=== PATIENT | female | born 1955 | race Caucasian/White ===

== ENCOUNTER 2021-05-23 08:50 | Day surgery (SDC) | payer MEDICARE, OTHER ==
[2021-05-20 11:20] LABS: Absolute Lymphocytes (CBC) 2.1 K/uL (0.7-4.9); Lymphocytes % 36.7 % (15.3-44.8); RBC Red Blood Cell Count 4.45 M/uL (3.86-4.86)
--- NOTE | 2021-05-20 11:25 | RAD REPORT ---
EXAM DESCRIPTION: RAD - Chest Pa And Lat (2 Views) - 05/20/2021 11:15 am CLINICAL HISTORY: PRE OP FOR CARPEL TUNNEL SURGERY Chest pain. COMPARISON: No comparisons FINDINGS: The lungs are mildly emphysematous but clear. The heart is upper limit of normal in size. No displaced fractures. Small hiatal hernia. IMPRESSION: Mild diffuse COPD.
[2021-05-20 11:26] LABS: Protime INR 0.9
[2021-05-20 11:35] LABS: Potassium 4.7 mmol/L (3.5-5.1)
--- NOTE | 2021-05-20 16:10 | EKG ---
Test Date: 2021-05-20 Test Time: 10:58:54 Heading Repairer: ADI MEASUREMENT RESULTS: Intervals: Rate: 54 W[place]: 170 QRSD: 114 QT: 432 QTc: 409 [place]: P: 53 W[place]: 170 QRS: 49 T: 47 INTERPRETIVE STATEMENTS: Sinus bradycardia Otherwise normal ECG No previous ECG available for comparison Electronically Signed On 05-20-21 16:10:35 SUCTION ROLLER by Villa Payton
[2021-05-23] MEDS ORDERED: NA CHLORIDE 0.9% 50 ML ONE (08:55)
[2021-05-23] MEDS ORDERED: Ringers Lactate 1,000 ML IV ONE (08:55)
[2021-05-23] MEDS ORDERED: CEFAZOLIN SODIUM 1 GM/VIAL ONE (08:55)
[2021-05-23 09:22] VITALS: O2SAT 97
[2021-05-23] MEDS ORDERED: MIDAZOLAM HCL 2 MG/2 ML INJ ONE (09:25)
[2021-05-23] MEDS ORDERED: ONDANSETRON 4 MG/2 ML VIAL ONE (09:25)
[2021-05-23] MEDS ORDERED: propofoL 200 MG/20 ML VIAL IV ONE ×2 (09:25→10:52)
[2021-05-23] MEDS ORDERED: FENTANYL CITR 100 MCG/2 ML ONE (09:25)
[2021-05-23] MEDS ORDERED: LIDOCAINE 1% MPF 30 ML VIAL ONE (09:25)
[2021-05-23] MEDS ORDERED: LIDOCAINE 2% MPF 5 ML VIAL ONE (09:25)
[2021-05-23] MEDS ORDERED: BUPIVACAINE 0.25% PF 10 ML VIAL ONE (10:14)
--- NOTE | 2021-05-23 11:15 | P.BOP ---
Preoperative diagnosis: right carpal tunnel syndrome Postoperative diagnosis: same Primary procedure: right open carpal tunnel release Front End Driver: NONE,NONE Estimated blood loss: 3 cc Specimen: none Findings: see dictation Anesthesia: General Complications: None Implants: none Fluids & blood products: per anesthesia record; TT: 25 mins @ 300 mmHg Transferred to: Recovery Room Condition: Good
[2021-05-23 14:43] VITALS: TEMP 97.3
[2021-05-23 14:46] VITALS: BP 107/61
--- NOTE | 2021-05-24 21:29 | OP ---
Date of Procedure: 05/23/2021 Surgeon: Jonatan Garcia MD Preoperative Diagnosis: Right carpal tunnel syndrome. Postoperative Diagnosis: Right carpal tunnel syndrome. Procedure Performed: Right open carpal tunnel release. Anesthesia: [place] block and general anesthesia. Complications: None. Tourniquet Time: 25 minutes at 300 mmHg. Implants: None. Indication For Procedure: Sal[place] is a 66-year-old female who was seen in my clinic with signs, sympt oms, and EMG findings consistent with the right carpal tunnel syndrome. I discussed with the patient at length risks and benefits associated with operative and nonoperative treatment. She expressed un derstanding and elected to proceed with operative treatment. Description Of Procedure: After informed consent was obtained, the patient was identified in the pre operative holding area. The right upper extremity was marked. The patient was then brought back to the operating room, transferred to the operating table in supine fashion, and placed under Elsie block anesthesia. The patient did not appear to be completely comfortable and at that time, Anesthesia el ected to convert the patient to general anesthesia. The right upper extremity was then prepped and d raped in usual sterile fashion. A time-out was initiated. The correct patient and procedure were co nfirmed and identified. The patient did receive her preoperative prophylactic antibiotics. Approxim ately 2 cm longitudinal incision was made just ulnar to the thenar crease. Dissection was then taken down to the palmar fascia, which was split and divided. Self-retaining retractors were placed. A F reer elevator was then placed just deep to the palmar fascia, protecting the median nerve at all time s and a 15 blade was then used to release the transverse carpal ligament with the Haines elevator prot ecting the nerve at all times. Any remaining fascial bands were then released using a blunt-tipped M etzenbaum with the tips aimed superficially to protect the median nerve. After full release of the t ransverse carpal ligament and fascial bands, wound was then irrigated thoroughly with normal saline. Skin was approximated using a 5-0 Prolene. Sterile dressings were applied. Tourniquet was let down . The patient was awakened and transferred to the PACU in stable condition. Postoperative Plan: The patient will begin working on range of motion exercises. She will follow up in 1 week for wound check and suture removal. CV/MODL Voice ID: [id number] Report ID: [id number]
== END 2021-05-23 12:20 | disposition home or self-care (01) ==
LOC: OR 08:50
PROVIDERS: ATTEND Orthopaedic Surgery Sports Medicine
PROC: 01N50ZZ Release Median Nerve, Open Approach (ICD-10-PCS; principal; 2021-05-23 10:15)
DX: G56.01 Carpal tunnel syndrome, right upper limb (principal); G56.02 Carpal tunnel syndrome, left upper limb; M25.542 Pain in joints of left hand; M25.541 Pain in joints of right hand; Z20.822 Contact with and (suspected) exposure to COVID-19
CPT/HCPCS: 93005; 85025; 80048; 36415; 85610; 85730; 71046; 64721; U0002; J2704 ×2; J2250; J3010; J7120; J2405; J0690

== ENCOUNTER 2022-04-14 01:03 | Emergency (ER) | payer OTHER ==
--- OUTSIDE RECORDS SUMMARY | 2022-04-14 01:09 | XMS REPORT | Continuity of Care Document ---
:1955 Author Organization [facility] t Address [address] [place] [address] Care Team Providers Name Role Phone Tiffanie SALCEDO Attending Clinician Unavailable BRADEN YAO Attending Clinician Unavailable DR STEFFANY BROWN Attending Clinician Unavailable BRADEN YAO Admitting Clinician Unavailable DR STEFFANY BROWN Admitting Clinician Unavailable Payers Payer Name Policy Type Policy Number Effective Date Expiration Date Najma sandoval [facility] 53 [id number] 2021 [facility] 00:00:00 - [facility] Problems Condition Condition Condition Status Onset Resolution Last Treating Co mments Source Name Details Category Date Date Treatment Clinician Date [id number] [place] 80214 tunnel [facility] syndrome - [facility] of right [facility] [id number] [place] Com[place] 38692 tunnel [facility] syndrome - [facility] of left [facility] [id number] Urge Problem Common incontinen Spirit ce of - [facility] urine [facility] [id number] Primary Problem Commo n osteoarthr Spirit itis of - [facility] both knees [facility] [id number] Mixed Problem Common hyperlipid Spirit emia - [facility] [id number] Restless Problem Commo n leg Spirit syndrome - [facility] Sciatica Lumbago Problem Common with Spirit sciatica, - [facility] right side [facility] [id number] Carpal Problem Commo n [id number] tunnel Spirit syndrome - [facility] on both [facility] [id number] Essential Problem Comm on hypertensi Spirit on - [facility] [id number] Simple Problem Common chronic Spirit bronchitis - [facility] [id number] 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 pain - [facility] Nail Nail Problem Active 2018-06-01 Memor ia fungus fungus 05:10:11 l Active Farrukh Problem 06/01/2018 [facility] Body mass Body mass Problem Active 2018-06-01 Memoria index index 05:10:11 l (BMI) of (BMI) of Rick n 45.0-49.9 45.0-49.9 in adult in adult Active Problem 06/01/2018 [facility] Morbid Morbid Problem Active 2018-06-01 Mem oria (severe) (severe) 05:10:11 l obesity obesity [place] due to due to excess excess calories calories Active Problem 06/01/2018 [facility] Chronic Chronic Problem Active 2018-06-01 Me moria obstructiv obstructiv 05:10:11 l e e [place] pulmonary pulmonary disease, disease, unspecifie unspecifie d COPD d COPD type type Active Problem 06/01/2018 [facility] Ingrown Ingrown Diagnosis Active 2018-06-01 Memoria thumb thumb 05:10:11 l nail, nail, Farrukh right right Active Diagnosis 06/01/2018 [facility] Allergies, Adverse Reactions, Alerts Allergy Allergy Status Severity Reaction(s) Onset Inactive Treating Comm ents Source Name Type Date Date Clinician Bactrim Bactrim Active hives 2018-0 Memoria 3-04 l 00:00: [place] 00 Social History Social Habit Start Date Stop Date Quantity Comments Source History of Tobacco Use Co mmon [facility] Sex Assigned At Com mon [facility] Smoking Status Start Date Stop Date Source Never Smoker Common [facility] Former Smoker 2021-11-21 00:00:00 2021-11-21 00:00:00 Common S pirit [facility] Medications Ordered Filled Start Stop Current Ordering Indication Dosage Frequency Signature Comments Components Source Medication Medication Date Date Medication? Clinician (SIG) Name Name Albuterol Albuterol 2021-03 No 2{puffs Albuterol Sulfate HFA Sulfate HFA 0-20 } Sulfate 108 (90 108 (90 00:00: HFA 108 Base) Base) 00 (90 Base) MCG/ACT MCG/ACT MCG/ACT Oxybutynin Oxybutynin 2- No 1{table BID Oxybutynin Chloride ER Chloride ER 07-18 t} Chloride 5 MG 5 MG 00:00: 00:00 ER 5 MG 00 :00 Oxybutynin Oxybutynin 2021- No 1{table BID Oxybutynin Chloride ER Chloride ER 07-18 t} Chloride 5 MG 5 MG 00:00: 00:00 ER 5 MG 00 :00 Oxybutynin Oxybutynin 2021- No 1{table BID Oxybutynin Chloride ER Chloride ER 07-18 t} Chloride 5 MG 5 MG 00:00: 00:00 ER 5 MG 00 :00 Acetaminoph Acetaminoph 2021-0 No 1{table Acetaminop en-Codeine en-Codeine 2-24 t_as_ne hen-Codein #3 300-30 #3 300-30 00:00: eded} e #3 MG MG 00 300-30 MG Acetaminoph Acetaminoph 2021-0 No 1{table Acetaminop en-Codeine en-Codeine 2-24 t_as_ne hen-Codein #3 300-30 #3 300-30 00:00: eded} e #3 MG MG 00 300-30 MG Acetaminoph Acetaminoph 2021-0 No 1{table Acetaminop en-Codeine en-Codeine 2-24 t_as_ne hen-Codein #3 300-30 #3 300-30 00:00: eded} e #3 MG MG 00 300-30 MG Acetaminoph Acetaminoph 2021-0 No 1{table Acetaminop en-Codeine en-Codeine 2-24 t_as_ne hen-Codein #3 300-30 #3 300-30 00:00: eded} e #3 MG MG 00 300-30 MG Acetaminoph Acetaminoph 2021-0 No 1{table Acetaminop en-Codeine en-Codeine 2-24 t_as_ne hen-Codein #3 300-30 #3 300-30 00:00: eded} e #3 MG MG 00 300-30 MG Acetaminoph Acetaminoph 2022-0 No 1{table Acetaminop en-Codeine en-Codeine 2-24 t_as_ne hen-Codein #3 300-30 #3 300-30 00:00: eded} e #3 MG MG 00 300-30 MG Acetaminoph Acetaminoph 2022-0 No 1{table Acetaminop en-Codeine en-Codeine 2-24 t_as_ne hen-Codein #3 300-30 #3 300-30 00:00: eded} e #3 MG MG 00 300-30 MG Acetaminoph Acetaminoph 2022-0 No 1{table Acetaminop en-Codeine en-Codeine 2-24 t_as_ne hen-Codein #3 300-30 #3 300-30 00:00: eded} e #3 MG MG 00 300-30 MG Acetaminoph Acetaminoph 2022-0 No 1{table Acetaminop en-Codeine en-Codeine 2-24 t_as_ne hen-Codein #3 300-30 #3 300-30 00:00: eded} e #3 MG MG 00 300-30 MG Acetaminoph Acetaminoph 2022-0 No 1{table Acetaminop en-Codeine en-Codeine 2-24 t_as_ne hen-Codein #3 300-30 #3 300-30 00:00: eded} e #3 MG MG 00 300-30 MG Acetaminoph Acetaminoph 2022-0 No 1{table Acetaminop en-Codeine en-Codeine 2-24 t_as_ne hen-Codein #3 300-30 #3 300-30 00:00: eded} e #3 MG MG 00 300-30 MG Acetaminoph Acetaminoph 2022-0 No 1{table Acetaminop en-Codeine en-Codeine 2-24 t_as_ne hen-Codein #3 300-30 #3 300-30 00:00: eded} e #3 MG MG 00 300-30 MG Kenalog Kenalog 2021-0 No 40mg Common (Triamcinol (Triamcinol 3-15 S pirit one) one) 00:00: - CHI 00 [facility] Kenalog Kenalog 2020-0 No 40mg Common (Triamcinol (Triamcinol 3-15 S pirit one) one) 00:00: - CHI 00 [facility] Kenalog Kenalog 2020-0 No 40mg Common (Triamcinol (Triamcinol 3-15 S pirit one) one) 00:00: - CHI 00 [facility] Kenredd Kenalog 0 No 40mg Common (Triamcinol (Triamcinol 3-15 S pirit one) one) 00:00: - CHI 00 [facility] Kacy Kenalog 0 No 40mg Common (Triamcinol (Triamcinol 3-15 S pirit one) one) 00:00: - CHI 00 [facility] Kacy Kenalog 2020-0 No 40mg Common (Triamcinol (Triamcinol 3-15 S pirit one) one) 00:00: - CHI 00 [facility] Kacy Kenalog 2020-0 No 40mg Common (Triamcinol (Triamcinol 3-15 S pirit one) one) 00:00: - CHI 00 [facility] Kenredd Kenalog 2020-0 No 40mg Common (Triamcinol (Triamcinol 3-15 S pirit one) one) 00:00: - CHI 00 [facility] Kenredd Kenalog 2020-0 No 40mg Common (Triamcinol (Triamcinol 3-15 S pirit one) one) 00:00: - CHI 00 [facility] Kenredd Kenalog 2020-0 No 40mg Common (Triamcinol (Triamcinol 3-15 S pirit one) one) 00:00: - CHI 00 [facility] Kenredd Kenalog 2020-0 No 40mg Common (Triamcinol (Triamcinol 3-15 S pirit one) one) 00:00: - CHI 00 [facility] Kenredd Kenalog 2020-0 No 40mg Common (Triamcinol (Triamcinol 3-15 S pirit one) one) 00:00: - CHI 00 [facility] ropinirole Yes Deanne not Calvin cuong - [place] defined l 05:10: Farrukh Irby Singulair Yes Deanne not Memor ia - [place] defined l 05:10: Farrukh Irby Escitalopra Yes Deanne not Mem oria m Oxalate 06-01 [place] defined l 05:10: Farrukh Irby Crestor Yes Deanne not Memoria - [place] defined l 05:10: Farrukh Irby Avalide Yes Deanne not Memoria 06-01 [place] defined l 05:10: Farrukh Irby Montelukast Montelukast Yes Na Salcedo 1 tablet Common Sodium Sodium [facility] Hydrochloro Hydrochloro Yes Na Salcedo 1 capsule Common thiazide thiazide in the [facility] t morning [facility] Indomethaci Indomethaci Yes Na Salcedo 1 capsule Common n n with food Spirit or milk [facility] Symbicort Symbicort Yes Na Salcedo 2 puffs Common [facility] Irbesartan- Irbesartan- Yes Na Salcedo 1 tablet Common Hydrochloro [facility]o [facility] th[facility] thiazide [facility] Magnesium Magnesium Yes Na Salcedo as Co mmon Glycinate Glycinate directed [facility] Rosuvastati Rosuvastati Yes Na Salcedo 1 tablet Common n Calcium n Calcium [facility] Ropinirole Ropinirole Yes Na Salcedo 1 tablet Common HCl HCl [facility] Escitalopra Escitalopra Yes Na Salcedo 1 tablet Common m Oxalate m Oxalate Spiri t [facility] Irbesartan- Irbesartan- No 1{table QD Irbesartan hydroCHLORO hydroCHLORO t} -hydroCHLO thiazide thiazide ROthiazide 150-12.5 MG 150-12.5 MG 150-12.5 MG Escitalopra Escitalopra No Escitalopr m Oxalate m Oxalate am Oxalate 10 MG 10 MG 10 MG Magnesium Magnesium No Magnesium Glycinate Glycinate Glycinate 665 MG 665 MG 665 MG Indomethaci Indomethaci No Indomethac n 25 MG n 25 MG in 25 MG Montelukast Montelukast No 1{table QD Montelukas Sodium 10 Sodium 10 t} t Sodium MG MG 10 MG Rosuvastati Rosuvastati No 1{table QD Rosuvastat n Calcium 5 n Calcium 5 t} in Calcium MG MG 5 MG rOPINIRole rOPINIRole No 1{table TID rOPINIRole HCl 2 MG HCl 2 MG t} HCl 2 MG Irbesartan- Irbesartan- No Irbesartan hydroCHLORO hydroCHLORO -hydroCHLO thiazide thiazide ROthiazide 150-12.5 MG 150-12.5 MG 150-12.5 MG Indomethaci Indomethaci No 1{capsu BID Indomethac n 25 MG n 25 MG le_with in 25 MG _food_o r_milk} hydroCHLORO hydroCHLORO No 1{capsu QD hydroCHLOR thiazide thiazide le_in_t Othiazide 12.5 MG 12.5 MG he_morn 12.5 MG ing} Mobic Mobic No Mobic hydroCHLORO hydroCHLORO No 1{capsu QD hydroCHLOR thiazide thiazide le_in_t Othiazide 12.5 MG 12.5 MG he_morn 12.5 MG ing} Symbicort Symbicort No 2{puffs BID Symbicort 160-4.5 160-4.5 } 160-4.5 MCG/ACT MCG/ACT MCG/ACT Irbesartan- Irbesartan- No 1{table QD Irbesartan hydroCHLORO hydroCHLORO t} -hydroCHLO thiazide thiazide ROthiazide 150-12.5 MG 150-12.5 MG 150-12.5 MG Escitalopra Escitalopra No Escitalopr m Oxalate m Oxalate am Oxalate 10 MG 10 MG 10 MG Magnesium Magnesium No Magnesium Glycinate Glycinate Glycinate 665 MG 665 MG 665 MG Indomethaci Indomethaci No Indomethac n 25 MG n 25 MG in 25 MG Montelukast Montelukast No 1{table QD Montelukas Sodium 10 Sodium 10 t} t Sodium MG MG 10 MG Rosuvastati Rosuvastati No 1{table QD Rosuvastat n Calcium 5 n Calcium 5 t} in Calcium MG MG 5 MG rOPINIRole rOPINIRole No 1{table TID rOPINIRole HCl 2 MG HCl 2 MG t} HCl 2 MG Irbesartan- Irbesartan- No Irbesartan hydroCHLORO hydroCHLORO -hydroCHLO thiazide thiazide ROthiazide 150-12.5 MG 150-12.5 MG 150-12.5 MG Indomethaci Indomethaci No 1{capsu BID Indomethac n 25 MG n 25 MG le_with in 25 MG _food_o r_milk} hydroCHLORO hydroCHLORO No 1{capsu QD hydroCHLOR thiazide thiazide le_in_t Othiazide 12.5 MG 12.5 MG he_morn 12.5 MG ing} Mobic Mobic No Mobic hydroCHLORO hydroCHLORO No 1{capsu QD hydroCHLOR thiazide thiazide le_in_t Othiazide 12.5 MG 12.5 MG he_morn 12.5 MG ing} Symbicort Symbicort No 2{puffs BID Symbicort 160-4.5 160-4.5 } 160-4.5 MCG/ACT MCG/ACT MCG/ACT Irbesartan- Irbesartan- No 1{table QD hydroCHLORO hydroCHLORO t} thiazide thiazide 150-12.5 MG 150-12.5 MG Escitalopra Escitalopra No m Oxalate m Oxalate 10 MG 10 MG Magnesium Magnesium No Glycinate Glycinate 665 MG 665 MG Indomethaci Indomethaci No n 25 MG n 25 MG Montelukast Montelukast No 1{table QD Sodium 10 Sodium 10 t} MG MG Mobic Mobic No Rosuvastati Rosuvastati No 1{table QD n Calcium 5 n Calcium 5 t} MG MG Irbesartan- Irbesartan- No hydroCHLORO hydroCHLORO thiazide thiazide 150-12.5 MG 150-12.5 MG rOPINIRole rOPINIRole No HCl 2 MG HCl 2 MG hydroCHLORO hydroCHLORO No 1{capsu QD thiazide thiazide le_in_t 12.5 MG 12.5 MG he_morn ing} Indomethaci Indomethaci No 1{capsu BID n 25 MG n 25 MG le_with _food_o r_milk} hydroCHLORO hydroCHLORO No 1{capsu QD thiazide thiazide le_in_t 12.5 MG 12.5 MG he_morn ing} Symbicort Symbicort No 2{puffs BID 160-4.5 160-4.5 } MCG/ACT MCG/ACT Irbesartan- Irbesartan- No 1{table QD Irbesartan hydroCHLORO hydroCHLORO t} -hydroCHLO thiazide thiazide ROthiazide 150-12.5 MG 150-12.5 MG 150-12.5 MG Escitalopra Escitalopra No Escitalopr m Oxalate m Oxalate am Oxalate 10 MG 10 MG 10 MG Magnesium Magnesium No Magnesium Glycinate Glycinate Glycinate 665 MG 665 MG 665 MG Indomethaci Indomethaci No Indomethac n 25 MG n 25 MG in 25 MG Montelukast Montelukast No 1{table QD Montelukas Sodium 10 Sodium 10 t} t Sodium MG MG 10 MG Mobic Mobic No Mobic Rosuvastati Rosuvastati No 1{table QD Rosuvastat n Calcium 5 n Calcium 5 t} in Calcium MG MG 5 MG Irbesartan- Irbesartan- No Irbesartan hydroCHLORO hydroCHLORO -hydroCHLO thiazide thiazide ROthiazide 150-12.5 MG 150-12.5 MG 150-12.5 MG rOPINIRole rOPINIRole No rOPINIRole HCl 2 MG HCl 2 MG HCl 2 MG hydroCHLORO hydroCHLORO No 1{capsu QD hydroCHLOR thiazide thiazide le_in_t Othiazide 12.5 MG 12.5 MG he_morn 12.5 MG ing} Indomethaci Indomethaci No 1{capsu BID Indomethac n 25 MG n 25 MG le_with in 25 MG _food_o r_milk} hydroCHLORO hydroCHLORO No 1{capsu QD hydroCHLOR thiazide thiazide le_in_t Othiazide 12.5 MG 12.5 MG he_morn 12.5 MG ing} Symbicort Symbicort No 2{puffs BID Symbicort 160-4.5 160-4.5 } 160-4.5 MCG/ACT MCG/ACT MCG/ACT Mobic 15 MG Mobic 15 MG No 1{table Mobic 15 t_with_ MG food} Symbicort Symbicort No 2{puffs BID Symbicort 160-4.5 160-4.5 } 160-4.5 MCG/ACT MCG/ACT MCG/ACT Indomethaci Indomethaci No 1{capsu BID Indomethac n 25 MG n 25 MG le_with in 25 MG _food_o r_milk} Magnesium Magnesium No Magnesium Glycinate Glycinate Glycinate 665 MG 665 MG 665 MG Irbesartan- Irbesartan- No Irbesartan hydroCHLORO hydroCHLORO -hydroCHLO thiazide thiazide ROthiazide 150-12.5 MG 150-12.5 MG 150-12.5 MG rOPINIRole rOPINIRole No 1{table TID rOPINIRole HCl 2 MG HCl 2 MG t} HCl 2 MG rOPINIRole rOPINIRole No rOPINIRole HCl 2 MG HCl 2 MG HCl 2 MG Escitalopra Escitalopra No Escitalopr m Oxalate m Oxalate am Oxalate 10 MG 10 MG 10 MG Montelukast Montelukast No 1{table QD Montelukas Sodium 10 Sodium 10 t} t Sodium MG MG 10 MG Indomethaci Indomethaci No Indomethac n 25 MG n 25 MG in 25 MG hydroCHLORO hydroCHLORO No 1{capsu QD hydroCHLOR thiazide thiazide le_in_t Othiazide 12.5 MG 12.5 MG he_morn 12.5 MG ing} hydroCHLORO hydroCHLORO No 1{capsu QD hydroCHLOR thiazide thiazide le_in_t Othiazide 12.5 MG 12.5 MG he_morn 12.5 MG ing} Irbesartan- Irbesartan- No 1{table QD Irbesartan hydroCHLORO hydroCHLORO t} -hydroCHLO thiazide thiazide ROthiazide 150-12.5 MG 150-12.5 MG 150-12.5 MG Rosuvastati Rosuvastati No 1{table QD Rosuvastat n Calcium 5 n Calcium 5 t} in Calcium MG MG 5 MG Mobic 15 MG Mobic 15 MG No 1{table Mobic 15 t_with_ MG food} Symbicort Symbicort No 2{puffs BID Symbicort 160-4.5 160-4.5 } 160-4.5 MCG/ACT MCG/ACT MCG/ACT Indomethaci Indomethaci No 1{capsu BID Indomethac n 25 MG n 25 MG le_with in 25 MG _food_o r_milk} Magnesium Magnesium No Magnesium Glycinate Glycinate Glycinate 665 MG 665 MG 665 MG Irbesartan- Irbesartan- No Irbesartan hydroCHLORO hydroCHLORO -hydroCHLO thiazide thiazide ROthiazide 150-12.5 MG 150-12.5 MG 150-12.5 MG rOPINIRole rOPINIRole No 1{table TID rOPINIRole HCl 2 MG HCl 2 MG t} HCl 2 MG rOPINIRole rOPINIRole No rOPINIRole HCl 2 MG HCl 2 MG HCl 2 MG Escitalopra Escitalopra No Escitalopr m Oxalate m Oxalate am Oxalate 10 MG 10 MG 10 MG Montelukast Montelukast No 1{table QD Montelukas Sodium 10 Sodium 10 t} t Sodium MG MG 10 MG Indomethaci Indomethaci No Indomethac n 25 MG n 25 MG in 25 MG hydroCHLORO hydroCHLORO No 1{capsu QD hydroCHLOR thiazide thiazide le_in_t Othiazide 12.5 MG 12.5 MG he_morn 12.5 MG ing} hydroCHLORO hydroCHLORO No 1{capsu QD hydroCHLOR thiazide thiazide le_in_t Othiazide 12.5 MG 12.5 MG he_morn 12.5 MG ing} Irbesartan- Irbesartan- No 1{table QD Irbesartan hydroCHLORO hydroCHLORO t} -hydroCHLO thiazide thiazide ROthiazide 150-12.5 MG 150-12.5 MG 150-12.5 MG Rosuvastati Rosuvastati No 1{table QD Rosuvastat n Calcium 5 n Calcium 5 t} in Calcium MG MG 5 MG Mobic 15 MG Mobic 15 MG No 1{table Mobic 15 t_with_ MG food} Symbicort Symbicort No 2{puffs BID Symbicort 160-4.5 160-4.5 } 160-4.5 MCG/ACT MCG/ACT MCG/ACT Indomethaci Indomethaci No 1{capsu BID Indomethac n 25 MG n 25 MG le_with in 25 MG _food_o r_milk} Magnesium Magnesium No Magnesium Glycinate Glycinate Glycinate 665 MG 665 MG 665 MG Irbesartan- Irbesartan- No Irbesartan hydroCHLORO hydroCHLORO -hydroCHLO thiazide thiazide ROthiazide 150-12.5 MG 150-12.5 MG 150-12.5 MG rOPINIRole rOPINIRole No 1{table TID rOPINIRole HCl 2 MG HCl 2 MG t} HCl 2 MG rOPINIRole rOPINIRole No rOPINIRole HCl 2 MG HCl 2 MG HCl 2 MG Escitalopra Escitalopra No Escitalopr m Oxalate m Oxalate am Oxalate 10 MG 10 MG 10 MG Montelukast Montelukast No 1{table QD Montelukas Sodium 10 Sodium 10 t} t Sodium MG MG 10 MG Indomethaci Indomethaci No Indomethac n 25 MG n 25 MG in 25 MG hydroCHLORO hydroCHLORO No 1{capsu QD hydroCHLOR thiazide thiazide le_in_t Othiazide 12.5 MG 12.5 MG he_morn 12.5 MG ing} hydroCHLORO hydroCHLORO No 1{capsu QD hydroCHLOR thiazide thiazide le_in_t Othiazide 12.5 MG 12.5 MG he_morn 12.5 MG ing} Irbesartan- Irbesartan- No 1{table QD Irbesartan hydroCHLORO hydroCHLORO t} -hydroCHLO thiazide thiazide ROthiazide 150-12.5 MG 150-12.5 MG 150-12.5 MG Rosuvastati Rosuvastati No 1{table QD Rosuvastat n Calcium 5 n Calcium 5 t} in Calcium MG MG 5 MG Mobic 15 MG Mobic 15 MG No 1{table Mobic 15 t_with_ MG food} Symbicort Symbicort No 2{puffs BID Symbicort 160-4.5 160-4.5 } 160-4.5 MCG/ACT MCG/ACT MCG/ACT Indomethaci Indomethaci No 1{capsu BID Indomethac n 25 MG n 25 MG le_with in 25 MG _food_o r_milk} Magnesium Magnesium No Magnesium Glycinate Glycinate Glycinate 665 MG 665 MG 665 MG Irbesartan- Irbesartan- No Irbesartan hydroCHLORO hydroCHLORO -hydroCHLO thiazide thiazide ROthiazide 150-12.5 MG 150-12.5 MG 150-12.5 MG rOPINIRole rOPINIRole No 1{table TID rOPINIRole HCl 2 MG HCl 2 MG t} HCl 2 MG rOPINIRole rOPINIRole No rOPINIRole HCl 2 MG HCl 2 MG HCl 2 MG Escitalopra Escitalopra No Escitalopr m Oxalate m Oxalate am Oxalate 10 MG 10 MG 10 MG Montelukast Montelukast No 1{table QD Montelukas Sodium 10 Sodium 10 t} t Sodium MG MG 10 MG Indomethaci Indomethaci No Indomethac n 25 MG n 25 MG in 25 MG hydroCHLORO hydroCHLORO No 1{capsu QD hydroCHLOR thiazide thiazide le_in_t Othiazide 12.5 MG 12.5 MG he_morn 12.5 MG ing} hydroCHLORO hydroCHLORO No 1{capsu QD hydroCHLOR thiazide thiazide le_in_t Othiazide 12.5 MG 12.5 MG he_morn 12.5 MG ing} Irbesartan- Irbesartan- No 1{table QD Irbesartan hydroCHLORO hydroCHLORO t} -hydroCHLO thiazide thiazide ROthiazide 150-12.5 MG 150-12.5 MG 150-12.5 MG Rosuvastati Rosuvastati No 1{table QD Rosuvastat n Calcium 5 n Calcium 5 t} in Calcium MG MG 5 MG Mobic 15 MG Mobic 15 MG No 1{table Mobic 15 t_with_ MG food} Symbicort Symbicort No 2{puffs BID Symbicort 160-4.5 160-4.5 } 160-4.5 MCG/ACT MCG/ACT MCG/ACT Indomethaci Indomethaci No 1{capsu BID Indomethac n 25 MG n 25 MG le_with in 25 MG _food_o r_milk} Magnesium Magnesium No Magnesium Glycinate Glycinate Glycinate 665 MG 665 MG 665 MG Irbesartan- Irbesartan- No Irbesartan hydroCHLORO hydroCHLORO -hydroCHLO thiazide thiazide ROthiazide 150-12.5 MG 150-12.5 MG 150-12.5 MG rOPINIRole rOPINIRole No 1{table TID rOPINIRole HCl 2 MG HCl 2 MG t} HCl 2 MG rOPINIRole rOPINIRole No rOPINIRole HCl 2 MG HCl 2 MG HCl 2 MG Escitalopra Escitalopra No Escitalopr m Oxalate m Oxalate am Oxalate 10 MG 10 MG 10 MG Montelukast Montelukast No 1{table QD Montelukas Sodium 10 Sodium 10 t} t Sodium MG MG 10 MG Indomethaci Indomethaci No Indomethac n 25 MG n 25 MG in 25 MG hydroCHLORO hydroCHLORO No 1{capsu QD hydroCHLOR thiazide thiazide le_in_t Othiazide 12.5 MG 12.5 MG he_morn 12.5 MG ing} hydroCHLORO hydroCHLORO No 1{capsu QD hydroCHLOR thiazide thiazide le_in_t Othiazide 12.5 MG 12.5 MG he_morn 12.5 MG ing} Irbesartan- Irbesartan- No 1{table QD Irbesartan hydroCHLORO hydroCHLORO t} -hydroCHLO thiazide thiazide ROthiazide 150-12.5 MG 150-12.5 MG 150-12.5 MG Rosuvastati Rosuvastati No 1{table QD Rosuvastat n Calcium 5 n Calcium 5 t} in Calcium MG MG 5 MG Indomethaci Indomethaci No Indomethac n 25 MG n 25 MG in 25 MG rOPINIRole rOPINIRole No 1{table TID rOPINIRole HCl 2 MG HCl 2 MG t} HCl 2 MG Escitalopra Escitalopra No Escitalopr m Oxalate m Oxalate am Oxalate 10 MG 10 MG 10 MG Indomethaci Indomethaci No 1{capsu BID Indomethac n 25 MG n 25 MG le_with in 25 MG _food_o r_milk} Symbicort Symbicort No 2{puffs BID Symbicort 160-4.5 160-4.5 } 160-4.5 MCG/ACT MCG/ACT MCG/ACT Magnesium Magnesium No Magnesium Glycinate Glycinate Glycinate 665 MG 665 MG 665 MG Rosuvastati Rosuvastati No 1{table QD Rosuvastat n Calcium 5 n Calcium 5 t} in Calcium MG MG 5 MG rOPINIRole rOPINIRole No rOPINIRole HCl 2 MG HCl 2 MG HCl 2 MG Montelukast Montelukast No 1{table QD Montelukas Sodium 10 Sodium 10 t} t Sodium MG MG 10 MG Irbesartan- Irbesartan- No Irbesartan hydroCHLORO hydroCHLORO -hydroCHLO thiazide thiazide ROthiazide 150-12.5 MG 150-12.5 MG 150-12.5 MG hydroCHLORO hydroCHLORO No 1{capsu QD hydroCHLOR thiazide thiazide le_in_t Othiazide 12.5 MG 12.5 MG he_morn 12.5 MG ing} hydroCHLORO hydroCHLORO No 1{capsu QD hydroCHLOR thiazide thiazide le_in_t Othiazide 12.5 MG 12.5 MG he_morn 12.5 MG ing} Mobic 15 MG Mobic 15 MG No 1{table Mobic 15 t_with_ MG food} Irbesartan- Irbesartan- No 1{table QD Irbesartan hydroCHLORO hydroCHLORO t} -hydroCHLO thiazide thiazide ROthiazide 150-12.5 MG 150-12.5 MG 150-12.5 MG Escitalopra Escitalopra No Escitalopr m Oxalate m Oxalate am Oxalate 10 MG 10 MG 10 MG Indomethaci Indomethaci No Indomethac n 25 MG n 25 MG in 25 MG Indomethaci Indomethaci No 1{capsu BID Indomethac n 25 MG n 25 MG le_with in 25 MG _food_o r_milk} Symbicort Symbicort No 2{puffs BID Symbicort 160-4.5 160-4.5 } 160-4.5 MCG/ACT MCG/ACT MCG/ACT Magnesium Magnesium No Magnesium Glycinate Glycinate Glycinate 665 MG 665 MG 665 MG Mobic 15 MG Mobic 15 MG No 1{table Mobic 15 t_with_ MG food} Irbesartan- Irbesartan- No 1{table QD Irbesartan hydroCHLORO hydroCHLORO t} -hydroCHLO thiazide thiazide ROthiazide 150-12.5 MG 150-12.5 MG 150-12.5 MG Irbesartan- Irbesartan- No Irbesartan hydroCHLORO hydroCHLORO -hydroCHLO thiazide thiazide ROthiazide 150-12.5 MG 150-12.5 MG 150-12.5 MG Rosuvastati Rosuvastati No 1{table QD Rosuvastat n Calcium 5 n Calcium 5 t} in Calcium MG MG 5 MG hydroCHLORO hydroCHLORO No 1{capsu QD hydroCHLOR thiazide thiazide le_in_t Othiazide 12.5 MG 12.5 MG he_morn 12.5 MG ing} rOPINIRole rOPINIRole No 1{table TID rOPINIRole HCl 2 MG HCl 2 MG t} HCl 2 MG rOPINIRole rOPINIRole No rOPINIRole HCl 2 MG HCl 2 MG HCl 2 MG hydroCHLORO hydroCHLORO No 1{capsu QD hydroCHLOR thiazide thiazide le_in_t Othiazide 12.5 MG 12.5 MG he_morn 12.5 MG ing} Montelukast Montelukast No 1{table QD Montelukas Sodium 10 Sodium 10 t} t Sodium MG MG 10 MG Escitalopra Escitalopra No Escitalopr m Oxalate m Oxalate am Oxalate 10 MG 10 MG 10 MG Indomethaci Indomethaci No Indomethac n 25 MG n 25 MG in 25 MG Indomethaci Indomethaci No 1{capsu BID Indomethac n 25 MG n 25 MG le_with in 25 MG _food_o r_milk} Symbicort Symbicort No 2{puffs BID Symbicort 160-4.5 160-4.5 } 160-4.5 MCG/ACT MCG/ACT MCG/ACT Magnesium Magnesium No Magnesium Glycinate Glycinate Glycinate 665 MG 665 MG 665 MG Mobic 15 MG Mobic 15 MG No 1{table Mobic 15 t_with_ MG food} Irbesartan- Irbesartan- No 1{table QD Irbesartan hydroCHLORO hydroCHLORO t} -hydroCHLO thiazide thiazide ROthiazide 150-12.5 MG 150-12.5 MG 150-12.5 MG Irbesartan- Irbesartan- No Irbesartan hydroCHLORO hydroCHLORO -hydroCHLO thiazide thiazide ROthiazide 150-12.5 MG 150-12.5 MG 150-12.5 MG Rosuvastati Rosuvastati No 1{table QD Rosuvastat n Calcium 5 n Calcium 5 t} in Calcium MG MG 5 MG hydroCHLORO hydroCHLORO No 1{capsu QD hydroCHLOR thiazide thiazide le_in_t Othiazide 12.5 MG 12.5 MG he_morn 12.5 MG ing} rOPINIRole rOPINIRole No 1{table TID rOPINIRole HCl 2 MG HCl 2 MG t} HCl 2 MG rOPINIRole rOPINIRole No rOPINIRole HCl 2 MG HCl 2 MG HCl 2 MG hydroCHLORO hydroCHLORO No 1{capsu QD hydroCHLOR thiazide thiazide le_in_t Othiazide 12.5 MG 12.5 MG he_morn 12.5 MG ing} Montelukast Montelukast No 1{table QD Montelukas Sodium 10 Sodium 10 t} t Sodium MG MG 10 MG Symbicort Symbicort No Symbicort 160-4.5 160-4.5 160-4.5 MCG/ACT MCG/ACT MCG/ACT Escitalopra Escitalopra No Escitalopr m Oxalate m Oxalate am Oxalate 10 MG 10 MG 10 MG Irbesartan- Irbesartan- No 1{table QD Irbesartan hydroCHLORO hydroCHLORO t} -hydroCHLO thiazide thiazide ROthiazide 150-12.5 MG 150-12.5 MG 150-12.5 MG Irbesartan- Irbesartan- No Irbesartan hydroCHLORO hydroCHLORO -hydroCHLO thiazide thiazide ROthiazide 150-12.5 MG 150-12.5 MG 150-12.5 MG Indomethaci Indomethaci No 1{capsu BID Indomethac n 25 MG n 25 MG le_with in 25 MG _food_o r_milk} rOPINIRole rOPINIRole No rOPINIRole HCl 2 MG HCl 2 MG HCl 2 MG Indomethaci Indomethaci No Indomethac n 25 MG n 25 MG in 25 MG Mobic 15 MG Mobic 15 MG No 1{table Mobic 15 t_with_ MG food} Symbicort Symbicort No 2{puffs BID Symbicort 160-4.5 160-4.5 } 160-4.5 MCG/ACT MCG/ACT MCG/ACT rOPINIRole rOPINIRole No 1{table TID rOPINIRole HCl 2 MG HCl 2 MG t} HCl 2 MG Magnesium Magnesium No Magnesium Glycinate Glycinate Glycinate 665 MG 665 MG 665 MG hydroCHLORO hydroCHLORO No 1{capsu QD hydroCHLOR thiazide thiazide le_in_t Othiazide 12.5 MG 12.5 MG he_morn 12.5 MG ing} hydroCHLORO hydroCHLORO No 1{capsu QD hydroCHLOR thiazide thiazide le_in_t Othiazide 12.5 MG 12.5 MG he_morn 12.5 MG ing} Montelukast Montelukast No 1{table QD Montelukas Sodium 10 Sodium 10 t} t Sodium MG MG 10 MG Rosuvastati Rosuvastati No 1{table QD Rosuvastat n Calcium 5 n Calcium 5 t} in Calcium MG MG 5 MG Symbicort Symbicort No Symbicort 160-4.5 160-4.5 160-4.5 MCG/ACT MCG/ACT MCG/ACT Indomethaci Indomethaci No Indomethac n 25 MG n 25 MG in 25 MG Magnesium Magnesium No Magnesium Glycinate Glycinate Glycinate 665 MG 665 MG 665 MG hydroCHLORO hydroCHLORO No 1{capsu QD hydroCHLOR thiazide thiazide le_in_t Othiazide 12.5 MG 12.5 MG he_morn 12.5 MG ing} Symbicort Symbicort No 2{puffs BID Symbicort 160-4.5 160-4.5 } 160-4.5 MCG/ACT MCG/ACT MCG/ACT Irbesartan- Irbesartan- No 1{table QD Irbesartan hydroCHLORO hydroCHLORO t} -hydroCHLO thiazide thiazide ROthiazide 150-12.5 MG 150-12.5 MG 150-12.5 MG Escitalopra Escitalopra No Escitalopr m Oxalate m Oxalate am Oxalate 10 MG 10 MG 10 MG rOPINIRole rOPINIRole No rOPINIRole HCl 2 MG HCl 2 MG HCl 2 MG hydroCHLORO hydroCHLORO No 1{capsu QD hydroCHLOR thiazide thiazide le_in_t Othiazide 12.5 MG 12.5 MG he_morn 12.5 MG ing} Rosuvastati Rosuvastati No 1{table QD Rosuvastat n Calcium 5 n Calcium 5 t} in Calcium MG MG 5 MG Mobic 15 MG Mobic 15 MG No 1{table Mobic 15 t_with_ MG food} Montelukast Montelukast No 1{table QD Montelukas Sodium 10 Sodium 10 t} t Sodium MG MG 10 MG Indomethaci Indomethaci No 1{capsu BID Indomethac n 25 MG n 25 MG le_with in 25 MG _food_o r_milk} Irbesartan- Irbesartan- No Irbesartan hydroCHLORO hydroCHLORO -hydroCHLO thiazide thiazide ROthiazide 150-12.5 MG 150-12.5 MG 150-12.5 MG Escitalopra Escitalopra No Escitalopr m Oxalate m Oxalate am Oxalate 10 MG 10 MG 10 MG Symbicort Symbicort No Symbicort 160-4.5 160-4.5 160-4.5 MCG/ACT MCG/ACT MCG/ACT hydroCHLORO hydroCHLORO No 1{capsu QD hydroCHLOR thiazide thiazide le_in_t Othiazide 12.5 MG 12.5 MG he_morn 12.5 MG ing} Rosuvastati Rosuvastati No 1{table QD Rosuvastat n Calcium 5 n Calcium 5 t} in Calcium MG MG 5 MG Irbesartan- Irbesartan- No 1{table QD Irbesartan hydroCHLORO hydroCHLORO t} -hydroCHLO thiazide thiazide ROthiazide 150-12.5 MG 150-12.5 MG 150-12.5 MG hydroCHLORO hydroCHLORO No 1{capsu QD hydroCHLOR thiazide thiazide le_in_t Othiazide 12.5 MG 12.5 MG he_morn 12.5 MG ing} Symbicort Symbicort No 2{puffs BID Symbicort 160-4.5 160-4.5 } 160-4.5 MCG/ACT MCG/ACT MCG/ACT Mobic 15 MG Mobic 15 MG No 1{table Mobic 15 t_with_ MG food} rOPINIRole rOPINIRole No rOPINIRole HCl 2 MG HCl 2 MG HCl 2 MG Indomethaci Indomethaci No 1{capsu BID Indomethac n 25 MG n 25 MG le_with in 25 MG _food_o r_milk} Irbesartan- Irbesartan- No Irbesartan hydroCHLORO hydroCHLORO -hydroCHLO thiazide thiazide ROthiazide 150-12.5 MG 150-12.5 MG 150-12.5 MG Magnesium Magnesium No Magnesium Glycinate Glycinate Glycinate 665 MG 665 MG 665 MG Montelukast Montelukast No 1{table QD Montelukas Sodium 10 Sodium 10 t} t Sodium MG MG 10 MG Indomethaci Indomethaci No Indomethac n 25 MG n 25 MG in 25 MG Symbicort Symbicort No 2{puffs BID Symbicort 160-4.5 160-4.5 } 160-4.5 MCG/ACT MCG/ACT MCG/ACT Montelukast Montelukast No 1{table QD Montelukas Sodium 10 Sodium 10 t} t Sodium MG MG 10 MG Mobic 15 MG Mobic 15 MG No 1{table Mobic 15 t_with_ MG food} Magnesium Magnesium No Magnesium Glycinate Glycinate Glycinate 665 MG 665 MG 665 MG Indomethaci Indomethaci No 1{capsu BID Indomethac n 25 MG n 25 MG le_with in 25 MG _food_o r_milk} Rosuvastati Rosuvastati No 1{table QD Rosuvastat n Calcium 5 n Calcium 5 t} in Calcium MG MG 5 MG Irbesartan- Irbesartan- No 1{table QD Irbesartan hydroCHLORO hydroCHLORO t} -hydroCHLO thiazide thiazide ROthiazide 150-12.5 MG 150-12.5 MG 150-12.5 MG hydroCHLORO hydroCHLORO No 1{capsu QD hydroCHLOR thiazide thiazide le_in_t Othiazide 12.5 MG 12.5 MG he_morn 12.5 MG ing} Indomethaci Indomethaci No Indomethac n 25 MG n 25 MG in 25 MG Escitalopra Escitalopra No Escitalopr m Oxalate m Oxalate am Oxalate 10 MG 10 MG 10 MG Symbicort Symbicort No Symbicort 160-4.5 160-4.5 160-4.5 MCG/ACT MCG/ACT MCG/ACT rOPINIRole rOPINIRole No rOPINIRole HCl 2 MG HCl 2 MG HCl 2 MG hydroCHLORO hydroCHLORO No 1{capsu QD hydroCHLOR thiazide thiazide le_in_t Othiazide 12.5 MG 12.5 MG he_morn 12.5 MG ing} Oxybutynin Oxybutynin No Oxybutynin Irbesartan- Irbesartan- No Irbesartan hydroCHLORO hydroCHLORO -hydroCHLO thiazide thiazide ROthiazide 150-12.5 MG 150-12.5 MG 150-12.5 MG Symbicort Symbicort No 2{puffs BID Symbicort 160-4.5 160-4.5 } 160-4.5 MCG/ACT MCG/ACT MCG/ACT Indomethaci Indomethaci No Indomethac n 25 MG n 25 MG in 25 MG Oxybutynin Oxybutynin No Oxybutynin Rosuvastati Rosuvastati No 1{table QD Rosuvastat n Calcium 5 n Calcium 5 t} in Calcium MG MG 5 MG Magnesium Magnesium No Magnesium Glycinate Glycinate Glycinate 665 MG 665 MG 665 MG Indomethaci Indomethaci No 1{capsu BID Indomethac n 25 MG n 25 MG le_with in 25 MG _food_o r_milk} hydroCHLORO hydroCHLORO No 1{capsu QD hydroCHLOR thiazide thiazide le_in_t Othiazide 12.5 MG 12.5 MG he_morn 12.5 MG ing} rOPINIRole rOPINIRole No rOPINIRole HCl 2 MG HCl 2 MG HCl 2 MG Montelukast Montelukast No 1{table QD Montelukas Sodium 10 Sodium 10 t} t Sodium MG MG 10 MG Mobic 15 MG Mobic 15 MG No 1{table Mobic 15 t_with_ MG food} Symbicort Symbicort No Symbicort 160-4.5 160-4.5 160-4.5 MCG/ACT MCG/ACT MCG/ACT hydroCHLORO hydroCHLORO No 1{capsu QD hydroCHLOR thiazide thiazide le_in_t Othiazide 12.5 MG 12.5 MG he_morn 12.5 MG ing} Irbesartan- Irbesartan- No Irbesartan hydroCHLORO hydroCHLORO -hydroCHLO thiazide thiazide ROthiazide 150-12.5 MG 150-12.5 MG 150-12.5 MG Escitalopra Escitalopra No Escitalopr m Oxalate m Oxalate am Oxalate 10 MG 10 MG 10 MG Escitalopra Escitalopra No Escitalopr m Oxalate m Oxalate am Oxalate 10 MG 10 MG 10 MG Symbicort Symbicort No 2{puffs BID Symbicort 160-4.5 160-4.5 } 160-4.5 MCG/ACT MCG/ACT MCG/ACT Oxybutynin Oxybutynin No 1{table BID Oxybutynin Chloride 5 Chloride 5 t} Chloride 5 MG MG MG Oxybutynin Oxybutynin No Oxybutynin rOPINIRole rOPINIRole No rOPINIRole HCl 2 MG HCl 2 MG HCl 2 MG rOPINIRole rOPINIRole No 1{table TID rOPINIRole HCl 2 MG HCl 2 MG t} HCl 2 MG Indomethaci Indomethaci No 1{capsu BID Indomethac n 25 MG n 25 MG le_with in 25 MG _food_o r_milk} hydroCHLORO hydroCHLORO No 1{capsu QD hydroCHLOR thiazide thiazide le_in_t Othiazide 12.5 MG 12.5 MG he_morn 12.5 MG ing} Indomethaci Indomethaci No Indomethac n 25 MG n 25 MG in 25 MG Rosuvastati Rosuvastati No 1{table QD Rosuvastat n Calcium 5 n Calcium 5 t} in Calcium MG MG 5 MG hydroCHLORO hydroCHLORO No 1{capsu QD hydroCHLOR thiazide thiazide le_in_t Othiazide 12.5 MG 12.5 MG he_morn 12.5 MG ing} Rosuvastati Rosuvastati No Rosuvastat n Calcium 5 n Calcium 5 in Calcium MG MG 5 MG Mobic 15 MG Mobic 15 MG No 1{table Mobic 15 t_with_ MG food} Irbesartan- Irbesartan- No 1{table QD Irbesartan hydroCHLORO hydroCHLORO t} -hydroCHLO thiazide thiazide ROthiazide 150-12.5 MG 150-12.5 MG 150-12.5 MG Magnesium Magnesium No Magnesium Glycinate Glycinate Glycinate 665 MG 665 MG 665 MG Montelukast Montelukast No 1{table QD Montelukas Sodium 10 Sodium 10 t} t Sodium MG MG 10 MG Irbesartan- Irbesartan- No Irbesartan hydroCHLORO hydroCHLORO -hydroCHLO thiazide thiazide ROthiazide 150-12.5 MG 150-12.5 MG 150-12.5 MG Escitalopra Escitalopra No Escitalopr m Oxalate m Oxalate am Oxalate 10 MG 10 MG 10 MG Symbicort Symbicort No 2{puffs BID Symbicort 160-4.5 160-4.5 } 160-4.5 MCG/ACT MCG/ACT MCG/ACT Oxybutynin Oxybutynin No 1{table BID Oxybutynin Chloride 5 Chloride 5 t} Chloride 5 MG MG MG Oxybutynin Oxybutynin No Oxybutynin rOPINIRole rOPINIRole No rOPINIRole HCl 2 MG HCl 2 MG HCl 2 MG rOPINIRole rOPINIRole No 1{table TID rOPINIRole HCl 2 MG HCl 2 MG t} HCl 2 MG Indomethaci Indomethaci No 1{capsu BID Indomethac n 25 MG n 25 MG le_with in 25 MG _food_o r_milk} hydroCHLORO hydroCHLORO No 1{capsu QD hydroCHLOR thiazide thiazide le_in_t Othiazide 12.5 MG 12.5 MG he_morn 12.5 MG ing} Indomethaci Indomethaci No Indomethac n 25 MG n 25 MG in 25 MG Rosuvastati Rosuvastati No 1{table QD Rosuvastat n Calcium 5 n Calcium 5 t} in Calcium MG MG 5 MG hydroCHLORO hydroCHLORO No 1{capsu QD hydroCHLOR thiazide thiazide le_in_t Othiazide 12.5 MG 12.5 MG he_morn 12.5 MG ing} Rosuvastati Rosuvastati No Rosuvastat n Calcium 5 n Calcium 5 in Calcium MG MG 5 MG Mobic 15 MG Mobic 15 MG No 1{table Mobic 15 t_with_ MG food} Irbesartan- Irbesartan- No 1{table QD Irbesartan hydroCHLORO hydroCHLORO t} -hydroCHLO thiazide thiazide ROthiazide 150-12.5 MG 150-12.5 MG 150-12.5 MG Magnesium Magnesium No Magnesium Glycinate Glycinate Glycinate 665 MG 665 MG 665 MG Albuterol Albuterol No Albuterol Sulfate HFA Sulfate HFA Sulfate 108 (90 108 (90 HFA 108 Base) Base) (90 Base) MCG/ACT MCG/ACT MCG/ACT Montelukast Montelukast No 1{table QD Montelukas Sodium 10 Sodium 10 t} t Sodium MG MG 10 MG Irbesartan- Irbesartan- No Irbesartan hydroCHLORO hydroCHLORO -hydroCHLO thiazide thiazide ROthiazide 150-12.5 MG 150-12.5 MG 150-12.5 MG Irbesartan- Irbesartan- No 1{table QD Irbesartan hydroCHLORO hydroCHLORO t} -hydroCHLO thiazide thiazide ROthiazide 150-12.5 MG 150-12.5 MG 150-12.5 MG rOPINIRole rOPINIRole No 1{table TID rOPINIRole HCl 2 MG HCl 2 MG t} HCl 2 MG hydroCHLORO hydroCHLORO No 1{capsu QD hydroCHLOR thiazide thiazide le_in_t Othiazide 12.5 MG 12.5 MG he_morn 12.5 MG ing} Indomethaci Indomethaci No 1{capsu BID Indomethac n 25 MG n 25 MG le_with in 25 MG _food_o r_milk} Escitalopra Escitalopra No Escitalopr m Oxalate m Oxalate am Oxalate 10 MG 10 MG 10 MG Montelukast Montelukast No 1{table QD Montelukas Sodium 10 Sodium 10 t} t Sodium MG MG 10 MG Irbesartan- Irbesartan- No Irbesartan hydroCHLORO hydroCHLORO -hydroCHLO thiazide thiazide ROthiazide 150-12.5 MG 150-12.5 MG 150-12.5 MG Magnesium Magnesium No Magnesium Glycinate Glycinate Glycinate 665 MG 665 MG 665 MG Rosuvastati Rosuvastati No 1{table QD Rosuvastat n Calcium 5 n Calcium 5 t} in Calcium MG MG 5 MG Symbicort Symbicort No 2{puffs BID Symbicort 160-4.5 160-4.5 } 160-4.5 MCG/ACT MCG/ACT MCG/ACT Indomethaci Indomethaci No Indomethac n 25 MG n 25 MG in 25 MG hydroCHLORO hydroCHLORO No 1{capsu QD hydroCHLOR thiazide thiazide le_in_t Othiazide 12.5 MG 12.5 MG he_morn 12.5 MG ing} Immunizations Ordered Immunization Filled Immunization Date Status Commen ts [facility] ([facility] Dose Vaccine (Low Dose 09:46:00 - [facility] Booster[facility] [address] (Low Dose Vaccine (Low Dose 09:46:00 - [facility] Booster) Booster) [place] [id number] 2021-01-24 Completed [facility] (Low Dose Vaccine (Low Dose 09:46:00 - [facility] Booster) Booster) [place] [id number] 2021-01-24 Com[facility] (Low Dose Vaccine (Low Dose 09:46:00 - [facility] Booster) [address] (Low Dose Vaccine (Low Dose 09:46:00 - [facility] Booster) [address] (Low Dose Vaccine (Low Dose 09:46:00 - [facility] Booster) Booster) [address] [facility] (Low Dose Vaccine (Low Dose 09:46:00 - [facility] Booster) Booster) [address] [facility]-24 [facility] (Low Dose Vaccine (Low Dose 09:46:00 - [facility] Booster) Booster) [address] [facility]-24 [facility] (Low Dose Vaccine (Low Dose 09:46:00 - [facility] Booster) Booster) [address] [facility]-24 [facility] Vacc[facility] (Low Dose Vaccine (Low Dose 09:46:00 - [facility] Booster) Booster) [facility] COVID19 [facility] 2021-01-24 Com[facility] Vacc[facility] (Low Dose Vaccine (Low Dose 09:46:00 - [facility] Booster) Booster) [facility] [address] COVID19 2021-01-24 Completed [facility] Vaccine (Low Dose Vaccine (Low Dose 09:46:00 - [facility] Booster) Booster) [facility] [address] COVID19 2021-01-24 Completed [facility] Vaccine (Low Dose Vaccine (Low Dose 09:46:00 - [facility] Booster) Booster) [facility] [address] COVID19 2021-01-24 Completed [facility] Vaccine (Low Dose Vaccine (Low Dose 09:46:00 - [facility] Booster) Booster) [facility] [address] COVID19 2021-01-24 Completed [facility] Vaccine (Low Dose Vaccine (Low Dose 09:46:00 - [facility] Booster) Booster) [facility] COVID19 [facility] COVID19 2021-01-24 Completed [facility] Vaccine (Low Dose Vaccine (Low Dose 09:46:00 - [facility] Booster) Booster) [facility] COVID19 [facility] COVID19 2021-01-24 Completed [facility] Vaccine (Low Dose Vaccine (Low Dose 09:46:00 - [facility] Booster) Booster) [facility] COVID19 [facility] COVID19 2021-01-24 Completed [facility] Vaccine (Low Dose Vaccine (Low Dose 09:46:00 - [facility] Booster) Booster) [facility] [address] COVID19 2021-01-24 Completed [facility] Vacc[facility] (Low Dose Vaccine (Low Dose 09:46:00 - [facility] Booster) Booster) [facility] FluAD 2021-01-16 [facility] 12:11[facility]00 [facility] Flu FluAD 2021-01-16 Completed [facility] 12:11:[facility] FluAD FluAD 2021-01-16 Completed [facility] 12:11:00 - [facility] FluAD FluAD 2021-01-16 Completed [facility] 12:11:00 - [facility] FluAD FluAD 2021-01-16 Completed [facility] 12:11:00 - [facility] FluAD FluAD 2021-01-16 Completed [facility] 12:11:00 - [facility] FluAD FluAD 2021-01-16 Completed [facility] 12:11:00 - [facility] FluAD FluAD 2021-01-16 Completed [facility] 12:11:00 - [facility] FluAD FluAD 2021-01-16 Completed [facility] 12:11: - [facility] FluAD FluAD 2021-01-16 Completed [facility] 12:11:00 - [facility] FluAD FluAD 2021-01-16 Completed [facility] 12:11: - [facility] FluAD FluAD 2021-01-16 Completed [facility] 12:11:00 - [facility] FluAD FluAD 2021-01-16 Completed [facility] 12:11:00 - [facility] FluAD FluAD 2021-01-16 Completed [facility] 12:11:00 - [facility] FluAD FluAD 2021-01-16 Completed [facility] 12:11: - [facility] FluAD FluAD 2021-01-16 Completed [facility] 12:11:00 - [facility] FluAD FluAD 2021-01-16 Completed [facility] 12:11:00 - [facility] FluAD FluAD 2021-01-16 Completed [facility] 12:11:00 - [facility] FluAD FluAD 2021-01-16 Completed [facility] 12:11:00 - [facility] FluAD FluAD 2021-01-16 Completed [facility] 12:11:00 - [facility] Kenalog Kenalog 2020-06-10 Completed [facility] (Triamcinolone) (Triamcinolone) 14:38:00 - [facility] FluAD FluAD 2019-12-11 Completed [facility] 15:30:00 - [facility] FluAD FluAD 2019-12-11 Completed [facility] 15:30:00 - [facility] FluAD FluAD 2019-12-11 Completed [facility] 15:30:00 - [facility] FluAD FluAD 2019-12-11 Completed [facility] 15:30:00 - [facility] FluAD FluAD 2019-12-11 Completed [facility] 15:30:00 - [facility] FluAD FluAD 2019-12-11 Completed [facility] 15:30:00 - [facility] FluAD FluAD 2019-12-11 Completed [facility] 15:30:00 - [facility] FluAD FluAD 2019-12-11 Completed [facility] 15:30:00 - [facility] FluAD FluAD 2019-12-11 Completed [facility] 15:30:00 - [facility] FluAD FluAD 2019-12-11 Completed [facility] 15:30:00 - [facility] FluAD FluAD 2019-12-11 Completed [facility] 15:30:00 - [facility] FluAD FluAD 2019-12-11 Completed [facility] 15:30:00 - [facility] FluAD FluAD 2019-12-11 Completed [facility] 15:30:00 - [facility] FluAD FluAD 2019-12-11 Completed [facility] 15:30:00 - [facility] FluAD FluAD 2019-12-11 Completed [facility] 15:30:00 - [facility] FluAD FluAD 2019-12-11 Completed [facility] 15:30:00 - [facility] FluAD FluAD 2019-12-11 Completed [facility] 15:30:00 - [facility] FluAD FluAD 2019-12-11 Completed [facility] 15:30:00 - [facility] FluAD FluAD 2019-12-11 Completed [facility] 15:30:00 - [facility] FluAD FluAD 2019-12-11 Completed [facility] 15:30:00 - [facility] FluAD FluAD 2019-12-11 Completed [facility] 00:00:00 - [facility] Vital Signs Vital Name Observation Time Observation Value Comments Source height 2022-01-15 13:40:00 65 [in_i] [facility] weight 2022-01-15 13:40:00 212.4 [lb_av] [facility] temperature 2022-01-15 13:40:00 97.2 [degF] [facility] bmi 2022-01-15 13:40:00 35.34 kg/m2 [facility] oximetry 2022-01-15 13:40:00 98 % [facility] respiratory rate 2022-01-15 13:40:00 15 /min [facility] on [facility] blood pressure 2022-01-15 13:40:00 119 mm[Hg] [facility] - systolic [facility] blood pressure 2022-01-15 13:40:00 58 mm[Hg] [facility] - diastolic [facility] height 2021-11-20 14:30:00 65 [in_i] [facility] weight 2021-11-20 14:30:00 217 [lb_av] [facility] temperature 2021-11-20 14:30:00 97.9 [degF] [facility] bmi 2021-11-20 14:30:00 36.11 kg/m2 [facility] blood pressure 2021-11-20 14:30:00 122 mm[Hg] [facility] - systolic [facility] blood pressure 2021-11-20 14:30:00 80 mm[Hg] [facility] - diastolic [facility] height 2021-09-18 09:40:00 65 [in_i] [facility] weight 2021-09-18 09:40:00 222.6 [lb_av] [facility] temperature 2021-09-18 09:40:00 97.2 [degF] [facility] bmi 2021-09-18 09:40:00 37.04 kg/m2 [facility] oximetry 2021-09-18 09:40:00 99 % [facility] respiratory rate 2021-09-18 09:40:00 16 /min [facility] blood pressure 2021-09-18 09:40:00 135 mm[Hg] [facility] - systolic [facility] blood pressure 2021-09-18 09:40:00 67 mm[Hg] [facility] - diastolic [facility] height 2021-07-18 11:20:00 65 [in_i] [facility] weight 2021-07-18 11:20:00 235 [lb_av] [facility] bmi 2021-07-18 11:20:00 39.1 kg/m2 [facility] height 2021-06-12 10:30:00 65 [in_i] [facility] weight 2021-06-12 10:30:00 235 [lb_av] [facility] temperature 2021-06-12 10:30:00 97.9 [degF] [facility] bmi 2021-06-12 10:30:00 39.1 kg/m2 [facility] blood pressure 2021-06-12 10:30:00 118 mm[Hg] [facility] - systolic [facility] blood pressure 2021-06-12 10:30:00 74 mm[Hg] [facility] - diastolic [facility] height 2021-05-29 11:15:00 65 [in_i] [facility] weight 2021-05-29 11:15:00 238 [lb_av] [facility] temperature 2021-05-29 11:15:00 97.2 [degF] [facility] bmi 2021-05-29 11:15:00 39.6 kg/m2 [facility] blood pressure 2021-05-29 11:15:00 124 mm[Hg] [facility] - systolic [facility] blood pressure 2021-05-29 11:15:00 84 mm[Hg] [facility] - diastolic [facility] height 2021-04-22 11:00:00 65 [in_i] [facility] weight 2021-04-22 11:00:00 238 [lb_av] [facility] temperature 2021-04-22 11:00:00 97.9 [degF] [facility] bmi 2021-04-22 11:00:00 39.6 kg/m2 [facility] blood pressure 2021-04-22 11:00:00 128 mm[Hg] [facility] - systolic [facility] blood pressure 2021-04-22 11:00:00 74 mm[Hg] [facility] - diastolic [facility] height 2021-04-17 11:20:00 65 [in_i] [facility] weight 2021-04-17 11:20:00 239 [lb_av] [facility] bmi 2021-04-17 11:20:00 39.77 kg/m2 [facility] height 2021-02-13 14:30:00 65 [in_i] [facility] weight 2021-02-13 14:30:00 238 [lb_av] [facility] bmi 2021-02-13 14:30:00 39.6 kg/m2 [facility] blood pressure 2021-02-13 14:30:00 126 mm[Hg] [facility] systolic [facility] blood pressure 2021-02-13 14:30:00 77 mm[Hg] [facility] diastolic [facility] weight 2021-01-16 11:20:00 237 [lb_av] [facility] temperature 2021-01-16 11:20:00 97.2 [degF] [facility] bmi 2021-01-16 11:20:00 39.43 kg/m2 [facility] oximetry 2021-01-16 11:20:00 100 % [facility] respiratory rate 2021-01-16 11:20:00 19 /min [facility] blood pressure 2021-01-16 11:20:00 135 mm[Hg] [facility] blood pressure 2021-01-16 11:20:00 63 mm[Hg] [facility] diastolic [facility] height 2021-01-16 11:20:00 65 [in_i] [facility] Heart Rate 2018-05-30 17:00:00 [facility] Diastolic (mm Hg) 2018-05-30 17:00:00 [facility] Systolic (mm Hg) 2018-05-30 17:00:00 [facility] Height 2018-05-30 17:00:00 [facility] Weight 2018-05-30 17:00:00 [facility] Temperature Oral (F) 2018-05-30 17:00:00 97 F [facility] Heart Rate 2018-05-16 16:15:00 [facility] Diastolic (mm Hg) 2018-05-16 16:15:00 [facility] Systolic (mm Hg) 2018-05-16 16:15:00 [facility] Height 2018-05-16 16:15:00 [facility] Weight 2018-05-16 16:15:00 [facility] Temperature Oral (F) 2018-05-16 16:15:00 97.9 F [facility] Procedures This patient has no known procedures. Encounters Start End Encounter Admission Attending Care Care Encounter Source Date/Time Date/Time Type Type Clinicians Facility Department ID 2022-04-14 Outpatient [id number] Mem[facility] 01:06:13 [id number] [facility] [id number] 2022-04-13 Outpatient SALCEDO, Na STLMLC STLMLC [id number] 2 Common 09:12:01 [id number] [facility] 2022-01-13 Outpatient Salcedo, Na STLMLC STLMLC [id number] 2 Common 14:21:01 [facility] 2021-11-21 Outpatient Salcedo, Na STLMLC STLMLC [id number] 2 Common 08:34:02 [facility] 2021-09-16 Outpatient Salcedo, Na STLMLC STLMLC [id number] 2 Common 15:50:01 [facility] 2021-07-16 Outpatient Salcedo, Na STLMLC STLMLC [id number] 2 Common 11:34:01 [facility] 2021-06-18 Outpatient Salcedo, Na STLMLC STLMLC [id number] 2 Common 16:29:01 [facility] 2021-06-11 Outpatient Salcedo, Na STLMLC STLMLC [id number] 2 Common 13:16:00 [facility] 2021-05-29 Outpatient Salcedo, Na STLMLC STLMLC [id number] 2 Common 08:22:01 [facility] 2021 Outpatient Salcedo, Na STLMLC STLMLC [id number] 2 Common 14:15:24 [id number] [facility] 2021 Outpatient Salcedo, Na STLMLC STLMLC [id number] 2 Common 14:04:04 [facility] 2021 Outpatient Salcedo, Na STLMLC STLMLC [id number] 2 Common 14:02:07 [facility] 2021 Outpatient Salcedo, Na STLMLC STLMLC [id number] 2 Common 13:27:40 [facility] 2021 Outpatient Salcedo, Na STLMLC STLMLC [id number] 2 Common 12:52:24 [id number] [facility] 2021 Outpatient Salcedo, Na STLMLC STLMLC [id number] 2 Common 12:39:46 [id number] [facility] 2021 Outpatient Salcedo, Na STLMLC STLMLC [id number] 2 Common 12:31:17 [id number] [facility] 2021 Outpatient Salcedo, Na STLMLC STLMLC [id number] 2 Common 12:05:49 [id number] [facility] 2021 Outpatient Salcedo, Na STLMLC STLMLC [id number] 2 Common 11:45:47 [id number] [facility] 2019-02-25 Inpatient C MAXIMILIAN, [facility] RAD [id number] [place] 08:00:00 [facility] 2022-02-26 2022-02-26 (TEL) STLMLC STLMLC [id number] Co mmon 00:00:00 00:00:00 [facility] 2022-01-15 2022-01-15 OFFICE STLMLC STLMLC [id number] Co mmon 00:00:00 00:00:00 VISIT [facility] ESTAB PT - CHI LEVEL 4 [facility] 2021-12-17 2021-12-17 (TEL) STLMLC STLMLC [id number] Co mmon 00:00:00 00:00:00 [facility] 2021-11-20 2021-11-20 OFFICE STLMLC STLMLC [id number] Co mmon 00:00:00 00:00:00 VISIT [facility] ESTAB PT - CHI LEVEL 4 [facility] 2021-09-26 2021-09-26 (TEL) STLMLC STLMLC [id number] Co mmon 00:00:00 00:00:00 [facility] 2021-09-18 2021-09-18 SUB ANNUAL STLMLC STLMLC [id number] Common 00:00:00 00:00:00 MCR [facility] WELLNESS - CHI VISIT [facility] 2021-07-18 2021-07-18 OL DIG E/M STLMLC STLMLC [id number] Common 00:00:00 00:00:00 SVC 21+ [facility] MIN [facility] 2021-06-12 2021-06-12 NON-BILLAB STLMLC STLMLC [id number] Common 00:00:00 00:00:00 LE VISIT [facility] 2021-06-10 2021-06-10 (TEL) STLMLC STLMLC [id number] Co mmon 00:00:00 00:00:00 [facility] 2021-05-29 2021-05-29 NON-BILLAB STLMLC STLMLC [id number] Common 00:00:00 00:00:00 LE VISIT [facility] 2021-05-22 2021-05-22 (TEL) STLMLC STLMLC [id number] Co mmon 00:00:00 00:00:00 [facility] 2021-04-25 2021-04-25 (TEL) STLMLC STLMLC [id number] Co mmon 00:00:00 00:00:00 [facility] 2021 2021 (TEL) STLMLC STLMLC [id number] Co mmon 00:00:00 00:00:00 [facility] 2021-04-22 2021-04-22 OFFICE STLMLC STLMLC [id number] Co mmon 00:00:00 00:00:00 VISIT [facility] LEVEL 4 [facility] 2021-04-17 2021-04-17 OL DIG E/M STLMLC STLMLC [id number] Common 00:00:00 00:00:00 SVC 21+ [facility] MIN [facility] 2021-04-07 2021-04-07 (TEL) STLMLC STLMLC [id number] Co mmon 00:00:00 00:00:00 [facility] 2021-04-03 2021-04-03 (TEL) STLMLC STLMLC [id number] Co mmon 00:00:00 00:00:00 [facility] 2021-02-24 2021-02-24 (TEL) STLMLC STLMLC [id number] Co mmon 00:00:00 00:00:00 [facility] 2021-02-13 2021-02-13 OFFICE STLMLC STLMLC [id number] Co mmon 00:00:00 00:00:00 VISIT NEW Anny walker PT LEVEL 4 [facility] 2021-01-16 2021-01-16 OFFICE STLMLC STLMLC [id number] Co mmon 00:00:00 00:00:00 VISIT Eugene RIOS PT - [facility] LEVEL 4 [facility] 2020-10-15 2020-10-15 Outpatient STLMLC STLMLC [id number] Common 00:00:00 00:00:00 [facility] 2020-08-15 2020-08-15 Outpatient STLMLC STLMLC [id number] Common 00:00:00 00:00:00 [facility] 2020-08-02 2020-08-02 Outpatient STLMLC STLMLC [id number] Common 00:00:00 00:00:00 [facility] 2020-07-12 2020-07-12 Outpatient STLMLC STLMLC [id number] Common 00:00:00 00:00:00 [facility] 2020-06-10 2020-06-10 Outpatient STLMLC STLMLC [id number] Common 00:00:00 00:00:00 [facility] 2020-04-22 2020-04-22 Outpatient STLMLC STLMLC [id number] Common 00:00:00 00:00:00 [facility] 2020-04-01 2020-04-01 Outpatient STLMLC STLMLC [id number] Common 00:00:00 00:00:00 [facility] 2020-02-15 2020-02-15 Outpatient STLMLC STLMLC [id number] Common 00:00:00 00:00:00 [facility] 2020-01-17 2020-01-17 Outpatient STLMLC STLMLC [id number] Common 00:00:00 00:00:00 [facility] 2019-12-11 2019-12-11 Outpatient [facility] [id number] Common 14:00:00 14:00:[address] [facility] Medicine [facility] 2018-05-30 2018-05-30 Outpatient [facility] [id number] [facility] 11:00:00 11:00:00 [facility] Surgery 2018-05-17 2018-05-17 Outpatient [facility] [id number] [facility] 13:00:00 13:00:00 [facility] Surgery Surgery 2018-05-16 2018-05-16 Outpatient [facility] [id number] [facility] 10:15:00 10:15:00 [facility] General [facility] Surgery 2017-09-06 2017-09-06 Outpatient Deanna YAO [facility] [id number] [place] 10:46:00 23:59:00 [facility] Results Test Description Test Time Test Comments Results Result [facility] e Comments FOOT RIGHT 2017-09-06 Location of dictation: COMPLETE 3 11:17:46 B2Hkhxc foot 3 VIEWS*GP* viewsHISTORY: Bump on top of foot. No known traumaCOMMENT: An arrow broussard the area of bump. There is mild enthesopathy of thetarsometatarsal joints and may account for palpable area along the dorsalaspect of the foot. No acute fracture, dislocation, focal bony or soft tissuelesion seen. There is mild diffuse swelling.IMPRESSION: Mild degenerative change may account for palpable dorsal bump. Mild swellingwith no acute bony or soft tissue abnormality. BASIC METABOLIC PANEL 2016-09-07 09:27:00 Test Item Value Reference Range Interpretation Comme nts GLUCOSE (test code = 06D) 115 mg/dL 75-100 H SODIUM (test code = 01A) 140 mmol/L 136-145 POTASSIUM (test code = 01B) 4.1 mmol/L 3.6-5.1 CHLORIDE (test code = 04A) 102 mmol/L 98-107 CO2 (test code = 02A) 32 mmol/L 22-32 ANION GAP (test code = ANG) 10.1 mmol/L BUN (test code = 05D) 12 mg/dL 7-18 CREATININE (test code = 03E) 0.8 mg/dL 0.4-1.1 BUN/CREA R (test code = BCR) 15 12-20 CALCIUM (test code = 09D) 9.6 mg/dL 8.3-9.5 H CHEST 2 VIEW*GP*2016-06-15 14:31:02PA and lateral chest, 2 views.Location code: [id number] HISTORY: Chest painCOMPARISON: NoneCOMMENTS:The lungs are clear and well inflated. The costophrenic angles aresharp. The cardiomediastinal silhou ette is unremarkable. The bones are intact.IMPRESSION: No acute abnormality
[2022-04-14] MEDS ORDERED: LIDOCAINE 1% MPF 30 ML VIAL ONE (01:26)
[2022-04-14] MEDS ORDERED: ACETAMINOPHEN 325 MG TABLET ONE (03:34)
[2022-04-14] MEDS ORDERED: AMOX/K CLAV 875 MG TAB ONE (03:35)
--- NOTE | 2022-04-14 03:37 | EDPHYS ---
Physician Documentation [facility] Name: Salina Thompson Age: 66 yrs Sex: Female : 1955 Arrival Date: 04/14/2022 Time: 01:05 Bed 6 Private MD: ED Physician Hugo Neal HPI: 04/14 01:20 This 66 yrs old Female presents to ER via Ambulatory with complaints of Laceration to cp Eye. 01:20 The patient or guardian reports injury, a laceration, irregular, swelling, tenderness. cp The complaints affect the right infraorbital area. Context of injury: resulted from a fall. Onset: The symptoms/episode began/occurred just prior to arrival. 01:20 Associated signs and symptoms: Loss of consciousness: This patient did not experience cp any loss of consciousness. Pertinent negatives: seizure, vomiting. Patient admits to drinking alcohol tonight. Reports losing balance and falling. Struck face against ground. No reported LOC. Historical: - Allergies: 01:18 Sulfa (Sulfonamide Antibiotics); ll3 - Immunization history:: Client reports receiving the 2nd dose of the Covid vaccine. - Social history:: Smoking status: Patient denies any tobacco usage or history of. - Immunization history: Last tetanus immunization: < 10 years ago. ROS: 01:25 Constitutional: Negative for body aches, chills, fever, poor PO intake. cp 01:25 Eyes: Positive for injury or acute deformity. cp 01:25 Neck: Negative for pain with movement, pain at rest, stiffness, tenderness, bony tenderness. 01:25 Cardiovascular: Negative for chest pain. 01:25 Respiratory: Negative for cough, shortness of breath, wheezing. 01:25 Abdomen/GI: Negative for vomiting, diarrhea, constipation. 01:25 Skin: Positive for laceration(s), of the right infraorbital. 01:25 Neuro: Negative for altered mental status, headache. 01:25 All other systems are negative. Exam: 01:30 Constitutional: The patient appears in no acute distress, alert, awake, cp non-diaphoretic, non-toxic, well developed, well nourished. 01:30 Head/face: Noted is ecchymosis, that is mild, a laceration(s), that is deep, that is cp jagged, of the right infraorbital area, swelling, that is mild, tenderness, that is moderate, of the right cheek. 01:30 Eyes: Pupils: equal, round, and reactive to light and accomodation, Extraocular movements: intact throughout, Conjunctiva: normal, no exudate, no injection, Sclera: no appreciated abnormality, Lids and lashes: appear normal, bilaterally, Visual mcnair: are intact. 01:30 ENT: External ear(s): are unremarkable, Ear canal(s): are normal, clear, TM's: dullness, bilaterally, Nose: is normal, Mouth: Lips: moist, Oral mucosa: pink and intact, moist, Posterior pharynx: Airway: no evidence of obstruction, patent. 01:30 Neck: C-spine: vertebral tenderness, is not appreciated, crepitus, is not appreciated, ROM/movement: pain, is not appreciated, limited range of motion, is not appreciated, nuchal rigidity, is not appreciated. 01:30 Chest/axilla: Inspection: normal, Palpation: is normal, no crepitus, no tenderness. 01:30 Cardiovascular: Rate: bradycardic, Rhythm: regular. 01:30 Respiratory: the patient does not display signs of respiratory distress, Respirations: normal, no use of accessory muscles, no retractions, labored breathing, is not present, Breath sounds: are clear throughout, no decreased breath sounds, no stridor, no wheezing. 01:30 Abdomen/GI: Inspection: abdomen appears normal, Bowel sounds: active, all quadrants, cp Palpation: abdomen is soft and non-tender, in all quadrants. 01:30 Back: pain, is absent, ROM is normal. cp 01:30 Musculoskeletal/extremity: Extremities: all appear grossly normal, with no appreciated pain with palpation, ROM: intact in all extremities. 01:30 Neuro: Orientation: to person, place \T\ time. Mentation: is normal, Motor: moves all fours, strength is normal, Gait: is steady, at a normal pace, without difficulty. Vital Signs: 01:14 BP 132 / 63; Pulse 56; Resp 16; Temp 98.0(O); Pulse Ox 100% on R/A; Weight 92.99 kg ll3 (R); Height 5 ft. 4 in. (162.56 cm) (R); Pain 8/10; 02:07 BP 130 / 47; Pulse 82; Resp 19; Pulse Ox 98% ; kd3 03:14 BP 114 / 58; Pulse 75; Resp 19; Pulse Ox 96% on R/A; kd3 01:14 Body Mass Index 35.19 (92.99 kg, 162.56 cm) ll3 Ripley Coma Score: 01:20 Eye Response: spontaneous(4). Verbal Response: oriented(5). Motor Response: obeys cp commands(6). Total: 15. 02:10 Eye Response: spontaneous(4). Verbal Response: oriented(5). Motor Response: obeys kd3 commands(6). Total: 15. 03:30 Eye Response: spontaneous(4). Verbal Response: oriented(5). Motor Response: obeys cp commands(6). Total: 15. Trauma Score (Adult): 02:10 Eye Response: spontaneous(1); Verbal Response: oriented(1); Motor Response: obeys kd3 commands(2); Systolic BP: > 89 mm Hg(4); Respiratory Rate: 10 to 29 per min(4); Amanda Score: 15; Trauma Score: 12 Laceration: 03:30 Wound Repair of 3cm ( 1.2in ) subcutaneous laceration to right infraorbital. cp Irregularly shaped.. Distal neuro/vascular/tendon intact. Anesthesia: Local anesthetic administered with 5 mls of 1% lidocaine. Wound prep: Simple cleansing by me. Skin closed with 8 6-0 Prolene using interrupted sutures and sterile technique. Dressed with Bacitracin. Patient tolerated well. MDM: 01:08 Patient medically screened. cp 01:30 Differential diagnosis: Contusion of Hematoma on face, Laceration of face, Intracranial cp bleed- Concussion cerebral contusion. 03:30 Data reviewed: vital signs, nurses notes, radiologic studies, CT scan. Consideration of cp Admission/Observation consideration of transfer for ophthalmic services. I considered the following discharge prescriptions or medication management in the emergency department Medications were administered in the Emergency Department. See MAR. Counseling: I had a detailed discussion with the patient and/or guardian regarding: the historical points, exam findings, and any diagnostic results supporting the discharge/admit diagnosis, radiology results, the need for outpatient follow up, an ENT specialist, an opthalmologist, to return to the emergency department if symptoms worsen or persist or if there are any questions or concerns that arise at home. Response to treatment: the patient's symptoms have markedly improved after treatment. ED course: Laceration closed as noted. Extra ocular movement full and intact with no signs of right side orbital entrapment, no diplopia on exam. Patient and family friend voice understanding of need for f/u with eye and ENT for reevaluation and to return to ED changes in vision, worsening pain, restriction of right eye movement. 04/14 01:15 Order name: CT Head C Spine cp 04/14 01:15 Order name: CT Facial Bones W/O Con cp 04/14 01:19 Order name: Head C Spine Mpr Wo Con EDMS 04/14 01:15 Order name: Dressing - Wound; Complete Time: 03:46 cp 04/14 01:15 Order name: Gloves, Sterile; Complete Time: 03:15 cp 04/14 01:15 Order name: Setup Suture Tray; Complete Time: 03:15 cp 04/14 01:15 Order name: C-Collar; Complete Time: 01:21 cp Administered Medications: 03:15 Drug: Lidocaine (1 %) 10 ml Volume: 20 ml; Route: Infiltration; kd3 03:48 Follow up: Response: No adverse reaction ll3 03:34 Drug: Augmentin (Amoxicillin-Clavulanate) 875 mg Route: PO; ll3 03:48 Follow up: Response: Medication administered at discharge. ll3 03:34 Drug: Tylenol 650 mg Route: PO; ll3 03:48 Follow up: Response: Medication administered at discharge. ll3 Disposition: 05:10 Co-signature as Attending Physician, Hugo Neal MD. rn Disposition Summary: 04/14/22 03:37 Discharge Ordered Location: Home cp Problem: new cp Symptoms: have improved cp Condition: Stable cp Diagnosis - Fracture of orbital floor - right cp - Right Infraorbital Laceration w/o foreign body cp - Fall on same level, unspecified cp Followup: cp - With: Deepika Tobar MD - When: 2 - 3 days - Reason: Recheck today's complaints Followup: cp - With: Elis Smyth MD - When: 2 - 3 days - Reason: Recheck today's complaints Discharge Instructions: - Discharge Summary Sheet cp - Orbital Floor Fracture cp - Fall Prevention in the Home, Adult cp - Facial Laceration cp Forms: - Medication Reconciliation Form cp - Thank You Letter cp - Antibiotic Education cp - Prescription Opioid Use cp Prescriptions: - Augmentin 875-125 mg Oral Tablet - take 1 tablet by ORAL route every 12 hours for 10 days; 20 tablet; Refills: 0, cp Product Selection Permitted - Tramadol 50 mg Oral Tablet - take 1 tablet by ORAL route every 8 hours as needed; 12 tablet; Refills: 0, cp Product Selection Permitted Signatures: Dispatcher [employer] EDMS Hguo Neal MD MD rn Severino Weir PA PA cp Lane Vega RN RN ll3 Paulette Perez RN RN kd3 Corrections: (The following items were deleted from the chart) 04/15 00:24 04/14 01:20 Patient admits to drinking alcohol tonight. Reports losing balance and cp falling. cp
--- NOTE | 2022-04-14 03:37 | ER ---
Nurse's Notes [facility] Name: Salina Thompson Age: 66 yrs Sex: Female : 1955 Arrival Date: 04/14/2022 Time: 01:05 Bed 6 Private MD: Diagnosis: Fracture of orbital floor-right;Right Infraorbital Laceration w/o foreign body;Fall on same level, unspecified Presentation: 04/14 01:14 Chief complaint: Patient states: States "I tripped over my own feet and landed on my ll3 face", laceration noted to right cheek. Coronavirus screen: Vaccine status: Patient reports receiving the 2nd dose of the covid vaccine. At this time, the client does not indicate any symptoms associated with coronavirus-19. Ebola Screen: No symptoms or risks identified at this time. Initial Sepsis Screen: Does the patient meet any 2 criteria? No. Patient's initial sepsis screen is negative. Does the patient have a suspected source of infection? No. Patient's initial sepsis screen is negative. Risk Assessment: Do you want to hurt yourself or someone else? Patient reports no desire to harm self or others. Onset of symptoms was April 14, 2022 at 00:00. Mechanism of Injury: Laceration sustained at home, while States "I didn't picker tender helper my foot far enough". 01:14 Method Of Arrival: Ambulatory ll3 01:14 Acuity: SAMI 3 ll3 03:13 Care prior to arrival: None. Trauma event details: Injury occurred in the [address] 03:13 Mechanism of Injury: Fall from standing position. [facility] Triage Assessment: 01:18 General: Appears uncomfortable, Behavior is calm, cooperative. Pain: Complains of pain ll3 in right eye Pain does not radiate. Pain currently is 8 out of 10 on a pain scale. Pain began 1 hour ago. Is continuous. Neuro: Level of Consciousness is awake, alert, obeys commands, Oriented to person, place, time, situation. Respiratory: Respiratory effort is even, unlabored, Respiratory pattern is regular, symmetrical. Derm: Wound noted right eye Wound is Laceration to right under eye. Musculoskeletal: Circulation, motion, and sensation intact. Trauma Activation: Physician: ED Physician; Name: severino weir; Notified At: 01:15; Arrived At: Physician: General Surgeon; Name: ; Notified At: 01:15; Arrived At: Physician: Radiology; Name: ; Notified At: 01:15; Arrived At: Physician: Respiratory; Name: ; Notified At: 01:15; Arrived At: Physician: Lab; Name: ; Notified At: 01:15; Arrived At: Historical: - Allergies: 01:18 Sulfa (Sulfonamide Antibiotics); ll3 - Immunization history:: Client reports receiving the 2nd dose of the Covid vaccine. - Social history:: Smoking status: Patient denies any tobacco usage or history of. - Immunization history: Last tetanus immunization: < 10 years ago. Screenin:09 [facility] ED Fall Risk Assessment (Adult) History of falling in the last 3 months, kd3 including since admission Yes- single mechanical fall (1 pt) Confusion or Disorientation. Abuse screen: Denies threats or abuse. Denies injuries from another. 03:14 Nutritional screening: No deficits noted. Tuberculosis screening: No symptoms or risk kd3 factors identified. Primary Survey: 02:10 NO uncontrolled hemorrhage observed. A: The client is awake and alert. The airway is kd3 patent. Breathing/Chest: Spontaneous respiratory effort, equal unlabored respirations, breath sounds clear bilaterally, regular pattern, symmetrical chest rise and fall. Circulation: No external hemorrhage present. Regular and strong central pulse, skin warm/dry/normal color. Disability Pupils are equal, round, reactive to light and accommodation. Exposure/Environment: Obvious injury(ies) are noted at this time: left eye. 03:12 Reassessment Alertness and Airway: Awake and alert. The airway is patent. Breathing: kd3 Spontaneous respiratory effort, equal unlabored respirations, breath sounds clear bilaterally, regular pattern with symmetrical chest rise and fall. Circulation: No external hemorrhage noted. Regular and strong central pulse, skin warm/dry/normal color. Disability: Pupils Pupils are equal, round, reactive to light and accomodation. Assessment: 01:21 General: See triage assessment. ll3 03:13 General: Appears uncomfortable, Behavior is calm, cooperative. Neuro: Level of kd3 Consciousness is awake, alert, obeys commands, Oriented to person, place, time, situation. Cardiovascular: Patient's skin is warm and dry. Respiratory: Airway is patent Trachea midline Respiratory effort is even, unlabored, Respiratory pattern is regular, symmetrical. Vital Signs: 01:14 BP 132 / 63; Pulse 56; Resp 16; Temp 98.0(O); Pulse Ox 100% on R/A; Weight 92.99 kg ll3 (R); Height 5 ft. 4 in. (162.56 cm) (R); Pain 8/10; 02:07 BP 130 / 47; Pulse 82; Resp 19; Pulse Ox 98% ; kd3 03:14 BP 114 / 58; Pulse 75; Resp 19; Pulse Ox 96% on R/A; kd3 01:14 Body Mass Index 35.19 (92.99 kg, 162.56 cm) ll3 Amanda Coma Score: 01:20 Eye Response: spontaneous(4). Verbal Response: oriented(5). Motor Response: obeys cp commands(6). Total: 15. 02:10 Eye Response: spontaneous(4). Verbal Response: oriented(5). Motor Response: obeys kd3 commands(6). Total: 15. 03:30 Eye Response: spontaneous(4). Verbal Response: oriented(5). Motor Response: obeys cp commands(6). Total: 15. Trauma Score (Adult): 02:10 Eye Response: spontaneous(1); Verbal Response: oriented(1); Motor Response: obeys kd3 commands(2); Systolic BP: > 89 mm Hg(4); Respiratory Rate: 10 to 29 per min(4); [place] Score: 15; Trauma Score: 12 ED Course: 01:05 Patient arrived in ED. ag3 01:07 Severino Weir PA is PHCP. cp 01:07 Hugo Neal MD is Attending Physician. cp 01:07 Paulette Perez, BHAKTI is Primary Nurse. kd3 01:18 Triage completed. ll3 01:18 Arm band placed on Patient placed in an exam room, on a stretcher, on pulse oximetry. ll3 C-collar applied. 01:33 Head C Spine Mpr Wo Con In Process Unspecified. EDMS 01:33 CT Facial Bones W/O Con In Process Unspecified. EDMS 03:13 Patient maintains SpO2 saturation greater than 95% on room air. kd3 03:14 Patient has correct armband on for positive identification. Bed in low position. Call kd3 light in reach. 03:14 Thermoregulation: warm blanket given to patient. kd3 03:35 Deepika Tobar MD is Referral Physician. cp 03:35 Elis Smyth MD is Referral Physician. cp 03:47 No provider procedures requiring assistance completed. Patient did not have IV access ll3 during this emergency room visit. Administered Medications: 03:15 Drug: Lidocaine (1 %) 10 ml Volume: 20 ml; Route: Infiltration; kd3 03:48 Follow up: Response: No adverse reaction ll3 03:34 Drug: Augmentin (Amoxicillin-Clavulanate) 875 mg Route: PO; ll3 03:48 Follow up: Response: Medication administered at discharge. ll3 03:34 Drug: Tylenol 650 mg Route: PO; ll3 03:48 Follow up: Response: Medication administered at discharge. ll3 Medication: 03:48 VIS not applicable for this client. ll3 Intake: 03:47 PO: 60ml; Total: 60ml. ll3 Outcome: 03:12 Patient's length of stay in the Emergency Department was greater than 2 hours. kd3 03:37 Discharge ordered by MD. cp 03:47 Discharged to home ambulatory, with friend. ll3 03:47 Condition: stable 03:47 Discharge instructions given to patient, friend, Instructed on discharge instructions, follow up and referral plans. medication usage, Demonstrated understanding of instructions, follow-up care, medications, Prescriptions given X 2. 03:49 Patient left the ED. ll3 Signatures: Dispatcher [employer] EDMS Severino Weir PA PA cp Gomez, Alice ag3 Lane Vega RN RN ll3 Paulette Perez RN RN kd3
[2022-04-14 04:10] VITALS: TEMP 98
[2022-04-14 04:13] VITALS: BP 114/58; O2SAT 96
--- NOTE | 2022-04-14 14:32 | RAD REPORT ---
EXAM DESCRIPTION: CT - Facial Bones W/ Mpr - 04/14/2022 6:58 am CLINICAL HISTORY: 66 years Female Facial trauma, blunt TECHNIQUE: Axial CT of the facial bones was performed without intravenous contrast with sagittal and coronal reformatted images. The CT study is performed according to ALARA (as low as reasonably achie vable) or ALARA/IMAGE GENTLY, with automatic adjustment of mA and/or kV according to patient size. Performed on: 04/14/2022 at 1:30 AM COMPARISON: None. FINDINGS: There is a comminuted mildly displaced right orbital floor fracture without evidence of he rniation of soft tissue through the orbital floor defect. There is herniation of fat through the orbi jose floor defect. There may be trace right intraorbital emphysema. Lamina papyracea appears intact. T here may be a fracture involving the uncinate process of the right maxillary sinus. The nasal bones are intact. Nasal septum appears intact. The zygomatic arches are intact. No addition al acute facial bone fractures are appreciated. The temporomandibular joints are preserved. The christy ble is intact. The visualized portions of the cervical spine are intact. Both globes are intact and are symmetric. The extraocular muscles and optic nerves are symmetric. A s noted above, there may be trace right intraorbital emphysema adjacent to the orbital floor fracture . There is also trace infiltration of the intraconal fat which may represent minimal contusion. There is moderate opacification of the right maxillary sinus demonstrating increased attenuation cons istent with blood products. There is partial opacification of the ethmoid air cells are on the right. The remainder of the paranasal sinuses are clear. The mastoid air cells and middle ear cavities are clear. There is right periorbital and right malar soft tissue swelling. There are bilateral carotid artery c alcifications. No additional focal soft tissue abnormalities are identified. IMPRESSION: 1. Comminuted mildly displaced right orbital floor fracture herniation of fat through the orbital floor defect. There may be trace right intraorbital emphysema adjacent to the orbital kimi or fracture. There is also trace infiltration of the intraconal fat which may represent minimal contu romie. 2. Questionable fracture involving the uncinate process of the right maxillary sinus. 3. Moderate opacification of the right maxillary sinus demonstrating increased attenuation consiste nt with blood products. 4. Right periorbital and right malar soft tissue swelling. 5. Bilateral carotid artery calcifications. Electronically signed by: Mattie Barksdale DO 04/14/2022 2:16 AM METAL BUFFER Due to temporary technical issues with the PACS/Fluency reporting system, reports are being signed by the in house radiologists without review as a courtesy to insure prompt reporting. The interpreting radiologist is fully responsible for the content of the report.
--- NOTE | 2022-04-14 14:55 | RAD REPORT ---
EXAM DESCRIPTION: CT - Head C Spine Mpr Wo Con - 04/14/2022 6:58 am CLINICAL HISTORY: 66 years Female fall TECHNIQUE: Multiple axial CT images of the brain and cervical spine were performed followed by sagit jose and coronal reconstructed images. The CT study is performed according to ALARA (as low as reasona elenita achievable) or ALARA/IMAGE GENTLY, with automatic adjustment of mA and/or kV according to patient size. Performed on: 04/14/2022 at 1:30 AM COMPARISON: None. FINDINGS: CT HEAD: There is no evidence of mass, acute mass effect or midline shift. There are no acute extra-axial flui d collections. There is no evidence of acute intracranial hemorrhage. The cerebral sulci and ventricles are normal in size and configuration. There are no focal abnormal areas of increased or decreased attenuation. There is moderate opacification of the right maxillary sinus which demonstrates increased attenuation likely related to blood products. There is a right orbital floor fracture. The globes are intact ilia aterally and appears symmetric. The extraocular muscles and optic nerves appear symmetric. There may be very slight infiltration of the intraconal fat within the right orbit which could reflect contusio n. No definite intraorbital emphysema is identified. The mastoid air cells are clear. There is right periorbital and right malar soft tissue swelling. CT CERVICAL SPINE: The cervical vertebrae are normal in height. There is trace anterolisthesis of C2 relative to C3 and C3 relative to C4. There is multilevel disc space narrowing throughout the cervical spine most pronou nced from C4-C5 through C6-C7. There is also disc space narrowing involving the visualized upper thor acic spine including T1-T2 and T2-T3. Bone mineralization is grossly within normal limits the atlanto -axial articulation is preserved and the odontoid process is intact. There is a bone cyst within the base of the odontoid process. There is normal alignment of the facet joints on the parasagittal images. There are mild to moderate degenerative changes of the cervical spine. There is no evidence of acute fracture or subluxation. There is no significant canal stenosis. Ther e is multilevel bilateral neural foraminal stenosis secondary to uncovertebral joint and facet joint hypertrophy.. The prevertebral and paraspinal soft tissues are unremarkable. The lung apices are clear. There are m inimal paraseptal emphysematous changes in the right lung apex. There are bilateral carotid artery ca lcifications There is a 1.2 x 1.1 x 1.4 cm low density nodule in the right thyroid lobe. No follow-up imaging is recommended. IMPRESSION: CT HEAD: 1. No evidence of acute intracranial pathology. 2. Right orbital floor fracture with associated right periorbital and right malar soft tissue swell ing. 3. Moderate opacification of the right maxillary sinus which demonstrates increased attenuation lik shawn related to blood products. CT CERVICAL SPINE: 1. No evidence of acute cervical spine injury. 2. Degenerative changes of the cervical spine as described above. Electronically signed by: Mattie Barksdale DO 04/14/2022 2:07 AM DREDGE PUMPER Due to temporary technical issues with the PACS/Fluency reporting system, reports are being signed by the in house radiologists without review as a courtesy to insure prompt reporting. The interpreting radiologist is fully responsible for the content of the report.
== END 2022-04-14 03:49 | disposition home or self-care (01) ==
LOC: ER 01:03
PROC: 0HQ1XZZ Repair Face Skin, External Approach (ICD-10-PCS; principal; 2022-04-14)
DX: S02.31XA Fracture of orbital floor, right side, initial encounter for closed fracture (principal); S01.111A Laceration without foreign body of right eyelid and periocular area, initial encounter; W18.30XA Fall on same level, unspecified, initial encounter; Z88.2 Allergy status to sulfonamides
CPT/HCPCS: 70450; 72125; 70486; 76377; 12013; J2001

== ENCOUNTER 2022-04-23 10:50 | Emergency (ER) | payer OTHER ==
--- OUTSIDE RECORDS SUMMARY | 2022-04-23 10:56 | XMS REPORT | Continuity of Care Document ---
:1955 Author Organization [facility] t Address [address] [place] [address] Care Team Providers Name Role Phone Kianna Davis Attending Clinician Unavailable Tiffanie SALCEDO Attending Clinician Unavailable BRADEN YAO Attending Clinician Unavailable DR STEFFANY BROWN Attending Clinician Unavailable BRADEN YAO Admitting Clinician Unavailable DR STEFFANY BROWN Admitting Clinician Unavailable Payers Payer Name Policy Type Policy Number Effective Date Expiration Date Najma sandoval [facility] [id number] 2021 [facility] ADVANTAGE 00:00:00 - [facility] Problems Condition Condition Condition Status Onset Resolution Last Treating Co mments Source Name Details Category Date Date Treatment Clinician Date Nail Nail Problem Active 2018-06-01 Memor ia fungus fungus 05:10:11 l Active [place] Problem 06/01/2018 [facility] Body mass Body mass Problem Active 2018-06-01 Memoria index index 05:10:11 l (BMI) of (BMI) of Rick n 45.0-49.9 45.0-49.9 in adult in adult Active Problem 06/01/2018 [facility] Morbid Morbid Problem Active 2018-06-01 Calvin cuong (severe) (severe) 05:10:11 l obesity obesity Farrukh due to due to excess excess calories calories Active Problem 06/01/2018 [facility] Chronic Chronic Problem Active 2018-06-01 Me moria obstructiv obstructiv 05:10:11 l Liz pulmonary pulmonary disease, disease, unspecifie unspecifie d COPD d COPD type type Active Problem 06/01/2018 [facility] Ingrown Ingrown Diagnosis Active 2018-06-01 Memoria thumb thumb 05:10:11 l nail, nail, [place] right right Active Diagnosis 06/01/2018 [facility] [id number] [place] [id number] tunnel [facility] syndrome - [facility] of right [facility] [id number] [place] [address] tunnel [facility] syndrome - [facility] of left [facility] [id number] Urge Problem Common incontinen Spirit ce of - [facility] urine [facility] [id number] Primary Problem Commo n osteoarthr Spirit itis of - [facility] both knees [facility] [id number] Mixed Problem Common hyperlipid Spirit emia - [facility] [id number] Restless Problem Commo n leg Spirit syndrome - [facility] Sciatica Lumbago Problem Common with Spirit sciatica, - [facility] right side [facility] [id number] Carpal Problem Commo n [id number] tunnel Spirit syndrome - [facility] on both [facility] [id number] Essential Problem Comm on hypertensi Spirit on - [facility] [id number] Simple Problem Common chronic Spirit bronchitis - [facility] [id number] Varicose Problem Commo n veins of Spirit bilateral - [facility] lower [facility] Chronic Other Problem Common pain chronic [facility] pain - [facility] Allergies, Adverse Reactions, Alerts Allergy Allergy Status Severity Reaction(s) Onset Inactive Treating Comm ents Source Name Type Date Date Clinician Bactrim Bactrim Active hives Memoria 3-04 l 00:00: 00 Social History Social Habit Start Date Stop Date Quantity Comments Source History of Tobacco Use Co mmon [facility] Sex Assigned At Com mon [facility] Smoking Status Start Date Stop Date Source Never Smoker Common [facility] Former Smoker 2021-11-21 00:00:2021-11-21 00:00:00 Common S pirit - [facility] Medications Ordered Filled Start Stop Current Ordering Indication Dosage Frequency Signature Comments Components Source Medication Medication Date Date Medication? Clinician (SIG) Name Name Albuterol Albuterol 2021-03 No 2{puffs Albuterol Sulfate HFA Sulfate HFA 0-20 } Sulfate 108 (90 108 (90 00:00: HFA 108 Base) Base) 00 (90 Base) MCG/ACT MCG/ACT MCG/ACT Oxybutynin Oxybutynin 2021- No 1{table BID Oxybutynin [...] MG MG 00 300-30 MG Acetaminoph Acetaminoph 2-0 No 1{table Acetaminop en-Codeine en-Codeine 2-24 t_as_ne [...] MG MG 00 300-30 MG Kenalog Kenalog 2020-0 No 40mg Common (Triamcinol (Triamcinol 3-15 S pirit one) one) 00:00: - [facility] 00 [facility] Kenalog Kenalog 2020-0 No 40mg Common (Triamcinol (Triamcinol 3-15 S pirit one) one) 00:00: - [facility] 00 [facility] Kenalog Kenalog 2020-0 No 40mg Common (Triamcinol (Triamcinol 3-15 S pirit one) one) 00:00: - [facility] 00 [facility] Kenalog Kenalog 2020-0 No 40mg Common (Triamcinol (Triamcinol 3-15 S pirit one) one) 00:00: - [facility] 00 [facility] Kenalog Kenalog 2020-0 No 40mg Common (Triamcinol (Triamcinol 3-15 S pirit one) one) 00:00: - [facility] 00 [facility] Kenalog Kenalog 2020-0 No 40mg Common (Triamcinol (Triamcinol 3-15 S pirit one) one) 00:00: - [facility] 00 [facility] Kenalog Kenalog 2020-0 No 40mg Common (Triamcinol (Triamcinol 3-15 S pirit one) one) 00:00: - [facility] 00 [facility] Kenredd Kenalog 0 No 40mg Common (Triamcinol (Triamcinol 3-15 S pirit one) one) 00:00: - [facility] 00 [facility] Kenredd Kenalog 0 No 40mg Common (Triamcinol (Triamcinol 3-15 S pirit one) one) 00:00: - [facility] 00 [facility] Kenredd Kenalog 0 No 40mg Common (Triamcinol (Triamcinol 3-15 S pirit one) one) 00:00: - [facility] 00 [facility] Kenredd Kenalog 2020-0 No 40mg Common (Triamcinol (Triamcinol 3-15 S pirit one) one) 00:00: - [facility] 00 [facility] Kenalog Kenalog 2020-0 No 40mg Common (Triamcinol (Triamcinol 3-15 S pirit one) one) 00:00: - [facility] 00 [facility] Kenalog Kenalog 2020-0 No 40mg Common (Triamcinol (Triamcinol 3-15 S pirit one) one) 00:00: - [facility] 00 [facility] Kenalog Kenalog 2020-0 No 40mg Common (Triamcinol (Triamcinol 3-15 S pirit one) one) 00:00: - [facility] 00 [facility] Kenalog Kenalog 2020-0 No 40mg Common (Triamcinol (Triamcinol 3-15 S pirit one) one) 00:00: - [facility] 00 [facility] Kacy Woodruff No 40mg Common (Triamcinol (Triamcinol 3-15 S pirit one) one) 00:00: - [facility] 00 [facility] Kacy Woodruff No 40mg Common (Triamcinol (Triamcinol 3-15 S pirit one) one) 00:00: - [facility] Singulair Yes Deanne not Memor ia 3-06 [place] defined l 05:10: Farrukh Irby Escitalopra Yes Deanne not Mem oria m Oxalate 3-06 [place] defined l 05:10: Farrukh Irby Crestor Yes Deanne not Memoria 3-06 [place] defined l 05:10: Farrukh Irby Avalide Yes Deanne not Memoria 3-06 [place] defined l 05:10: Farrukh Irby ropinirole Yes Deanne not Calvin cuong 3-06 [place] defined l 05:10: Farrukh Irby Singulair Yes Deanne not Memor ia 3-06 [place] defined l 05:10: Farrukh Irby Escitalopra Yes Deanne not Mem oria m Oxalate 3-06 [place] defined l 05:10: Farrukh Irby Crestor Yes Deanne not Memoria 3-06 [place] defined l 05:10: Farrukh Irby Avalide Yes Deanne not Memoria 3-06 [place] defined l 05:10: Farrukh Irby ropinirole Yes Deanne not Calvin cuong 3-06 [place] defined l 05:10: Farru[address] Irby Montelukast Montelukast Yes Na Salcedo 1 tablet Common Sodium Sodium [facility] Hydrochloro Hydrochloro Yes Na Salcedo 1 capsule Common thiazide thiazide in the Spiri t morning [facility] Indomethaci Indomethaci Yes Na Salcedo 1 capsule Common n n with food Spirit or milk - [facility] Symbicort Symbicort Yes Na Salcedo 2 puffs [facility] Spirit [facility] Irbesartan- Irbesartan- Yes Na Salcedo 1 tablet Common Hydrochloro Hydrochloro S pirit thiazide thiazide [facility] Magnesium Magnesium Yes Na Salcedo as Co mmon Glycinate Glycinate directed S pirit [facility] Rosuvastati Rosuvastati Yes Na Salcedo 1 tablet Common n Calcium n Calcium Spiri [facility] Ropinirole Ropinirole Yes Na Salcedo 1 tablet Common HCl HCl Spirit [facility] Escitalopra Escitalopra Yes Na Salcedo 1 tablet Common m Oxalate m Oxalate Spiri [facility] Irbesartan- Irbesartan- No 1{table QD Irbesartan hydroCHLORO [...] t} t Sodium MG MG 10 MG Oxybutynin Oxybutynin No Oxybutynin Chloride 5 Chloride 5 Chloride 5 MG MG MG Rosuvastati Rosuvastati No 1{table QD Rosuvastat n Calcium 5 n Calcium 5 t} in Calcium MG MG 5 MG Indomethaci Indomethaci No Indomethac n 25 MG n 25 MG in 25 MG Mobic 15 MG Mobic 15 MG No 1{table Mobic 15 t_with_ MG food} rOPINIRole rOPINIRole No rOPINIRole HCl 2 MG HCl 2 MG HCl 2 MG Oxybutynin Oxybutynin No Oxybutynin Indomethaci Indomethaci No 1{capsu BID Indomethac n 25 MG n 25 MG le_with in 25 MG _food_o r_milk} hydroCHLORO hydroCHLORO No 1{capsu QD hydroCHLOR thiazide thiazide le_in_t Othiazide 12.5 MG 12.5 MG he_morn 12.5 MG ing} Irbesartan- Irbesartan- No Irbesartan hydroCHLORO hydroCHLORO -hydroCHLO thiazide thiazide ROthiazide 150-12.5 MG 150-12.5 MG 150-12.5 MG Albuterol Albuterol No Albuterol Sulfate HFA Sulfate HFA Sulfate 108 (90 108 (90 HFA 108 Base) Base) (90 Base) MCG/ACT MCG/ACT MCG/ACT Magnesium Magnesium No Magnesium Glycinate Glycinate Glycinate 665 MG 665 MG 665 MG Symbicort Symbicort No 2{puffs BID Symbicort 160-4.5 160-4.5 } 160-4.5 MCG/ACT MCG/ACT MCG/ACT Rosuvastati Rosuvastati No Rosuvastat n Calcium 5 n Calcium 5 in Calcium MG MG 5 MG Irbesartan- Irbesartan- No 1{table QD Irbesartan hydroCHLORO hydroCHLORO t} -hydroCHLO thiazide thiazide ROthiazide 150-12.5 MG 150-12.5 MG 150-12.5 MG Escitalopra Escitalopra No Escitalopr m Oxalate m Oxalate am Oxalate 10 MG 10 MG 10 MG hydroCHLORO hydroCHLORO No 1{capsu QD hydroCHLOR thiazide thiazide le_in_t Othiazide 12.5 MG 12.5 MG he_morn 12.5 MG ing} Montelukast Montelukast No 1{table QD Montelukas Sodium 10 Sodium 10 t} t Sodium MG MG 10 MG Oxybutynin Oxybutynin No Oxybutynin Chloride 5 Chloride 5 Chloride 5 MG MG MG Rosuvastati Rosuvastati No 1{table QD Rosuvastat n Calcium 5 n Calcium 5 t} in Calcium MG MG 5 MG Indomethaci Indomethaci No Indomethac n 25 MG n 25 MG in 25 MG Mobic 15 MG Mobic 15 MG No 1{table Mobic 15 t_with_ MG food} rOPINIRole rOPINIRole No rOPINIRole HCl 2 MG HCl 2 MG HCl 2 MG Oxybutynin Oxybutynin No Oxybutynin Indomethaci Indomethaci No 1{capsu BID Indomethac n 25 MG n 25 MG le_with in 25 MG _food_o r_milk} hydroCHLORO hydroCHLORO No 1{capsu QD hydroCHLOR thiazide thiazide le_in_t Othiazide 12.5 MG 12.5 MG he_morn 12.5 MG ing} Irbesartan- Irbesartan- No Irbesartan hydroCHLORO hydroCHLORO -hydroCHLO thiazide thiazide ROthiazide 150-12.5 MG 150-12.5 MG 150-12.5 MG Albuterol Albuterol No Albuterol Sulfate HFA Sulfate HFA Sulfate 108 (90 108 (90 HFA 108 Base) Base) (90 Base) MCG/ACT MCG/ACT MCG/ACT Magnesium Magnesium No Magnesium Glycinate Glycinate Glycinate 665 MG 665 MG 665 MG Symbicort Symbicort No 2{puffs BID Symbicort 160-4.5 160-4.5 } 160-4.5 MCG/ACT MCG/ACT MCG/ACT Rosuvastati Rosuvastati No Rosuvastat n Calcium 5 n Calcium 5 in Calcium MG MG 5 MG Irbesartan- Irbesartan- No 1{table QD Irbesartan hydroCHLORO hydroCHLORO t} -hydroCHLO thiazide thiazide ROthiazide 150-12.5 MG 150-12.5 MG 150-12.5 MG Escitalopra Escitalopra No Escitalopr m Oxalate m Oxalate am Oxalate 10 MG 10 MG 10 MG Oxybutynin Oxybutynin No Oxybutynin Chloride 5 Chloride 5 Chloride 5 MG MG MG Indomethaci Indomethaci No 1{capsu BID Indomethac n 25 MG n 25 MG le_with in 25 MG _food_o r_milk} Irbesartan- Irbesartan- No 1{table QD Irbesartan hydroCHLORO hydroCHLORO t} -hydroCHLO thiazide thiazide ROthiazide 150-12.5 MG 150-12.5 MG 150-12.5 MG Rosuvastati Rosuvastati No 1{table QD Rosuvastat n Calcium 5 n Calcium 5 t} in Calcium MG MG 5 MG hydroCHLORO hydroCHLORO No 1{capsu QD hydroCHLOR thiazide thiazide le_in_t Othiazide 12.5 MG 12.5 MG he_morn 12.5 MG ing} Escitalopra Escitalopra No Escitalopr m Oxalate m Oxalate am Oxalate 10 MG 10 MG 10 MG Montelukast Montelukast No 1{table QD Montelukas Sodium 10 Sodium 10 t} t Sodium MG MG 10 MG rOPINIRole rOPINIRole No rOPINIRole HCl 2 MG HCl 2 MG HCl 2 MG Magnesium Magnesium No Magnesium Glycinate Glycinate Glycinate 665 MG 665 MG 665 MG Albuterol Albuterol No Albuterol Sulfate HFA Sulfate HFA Sulfate 108 (90 108 (90 HFA 108 Base) Base) (90 Base) MCG/ACT MCG/ACT MCG/ACT Indomethaci Indomethaci No Indomethac n 25 MG n 25 MG in 25 MG hydroCHLORO hydroCHLORO No 1{capsu QD hydroCHLOR thiazide thiazide le_in_t Othiazide 12.5 MG 12.5 MG he_morn 12.5 MG ing} Symbicort Symbicort No 2{puffs BID Symbicort 160-4.5 160-4.5 } 160-4.5 MCG/ACT MCG/ACT MCG/ACT Mobic 15 MG Mobic 15 MG No 1{table Mobic 15 t_with_ MG food} Oxybutynin Oxybutynin No Oxybutynin Chloride 5 Chloride 5 Chloride 5 MG MG MG Indomethaci Indomethaci No 1{capsu BID Indomethac n 25 MG n 25 MG le_with in 25 MG _food_o r_milk} Irbesartan- Irbesartan- No 1{table QD Irbesartan hydroCHLORO hydroCHLORO t} -hydroCHLO thiazide thiazide ROthiazide 150-12.5 MG 150-12.5 MG 150-12.5 MG Rosuvastati Rosuvastati No 1{table QD Rosuvastat n Calcium 5 n Calcium 5 t} in Calcium MG MG 5 MG hydroCHLORO hydroCHLORO No 1{capsu QD hydroCHLOR thiazide thiazide le_in_t Othiazide 12.5 MG 12.5 MG he_morn 12.5 MG ing} Escitalopra Escitalopra No Escitalopr m Oxalate m Oxalate am Oxalate 10 MG 10 MG 10 MG Montelukast Montelukast No 1{table QD Montelukas Sodium 10 Sodium 10 t} t Sodium MG MG 10 MG rOPINIRole rOPINIRole No rOPINIRole HCl 2 MG HCl 2 MG HCl 2 MG Magnesium Magnesium No Magnesium Glycinate Glycinate Glycinate 665 MG 665 MG 665 MG Albuterol Albuterol No Albuterol Sulfate HFA Sulfate HFA Sulfate 108 (90 108 (90 HFA 108 Base) Base) (90 Base) MCG/ACT MCG/ACT MCG/ACT Indomethaci Indomethaci No Indomethac n 25 MG n 25 MG in 25 MG hydroCHLORO hydroCHLORO No 1{capsu QD hydroCHLOR thiazide thiazide le_in_t Othiazide 12.5 MG 12.5 MG he_morn 12.5 MG ing} Symbicort Symbicort No 2{puffs BID Symbicort 160-4.5 160-4.5 } 160-4.5 MCG/ACT MCG/ACT MCG/ACT Mobic 15 MG Mobic 15 MG No 1{table Mobic 15 t_with_ MG food} Oxybutynin Oxybutynin No Oxybutynin Chloride 5 Chloride 5 Chloride 5 MG MG MG Indomethaci Indomethaci No 1{capsu BID Indomethac n 25 MG n 25 MG le_with in 25 MG _food_o r_milk} Irbesartan- Irbesartan- No 1{table QD Irbesartan hydroCHLORO hydroCHLORO t} -hydroCHLO thiazide thiazide ROthiazide 150-12.5 MG 150-12.5 MG 150-12.5 MG Rosuvastati Rosuvastati No 1{table QD Rosuvastat n Calcium 5 n Calcium 5 t} in Calcium MG MG 5 MG hydroCHLORO hydroCHLORO No 1{capsu QD hydroCHLOR thiazide thiazide le_in_t Othiazide 12.5 MG 12.5 MG he_morn 12.5 MG ing} Escitalopra Escitalopra No Escitalopr m Oxalate m Oxalate am Oxalate 10 MG 10 MG 10 MG Montelukast Montelukast No 1{table QD Montelukas Sodium 10 Sodium 10 t} t Sodium MG MG 10 MG rOPINIRole rOPINIRole No rOPINIRole HCl 2 MG HCl 2 MG HCl 2 MG Magnesium Magnesium No Magnesium Glycinate Glycinate Glycinate 665 MG 665 MG 665 MG Albuterol Albuterol No Albuterol Sulfate HFA Sulfate HFA Sulfate 108 (90 108 (90 HFA 108 Base) Base) (90 Base) MCG/ACT MCG/ACT MCG/ACT Indomethaci Indomethaci No Indomethac [...] Date Status Commen ts Source [facility] [address] Vaccine (Low Dose Vaccine (Low Dose 09:46:00 [facility] [address]-01-24 Completed [facility] Vaccine (Low Dose Vaccine (Low Dose 09:46:00 [facility]oster[facility] [address] 2021-01-24 Completed [facility] Vaccine (Low Dose Vaccine (Low Dose 09:46:00 - [facility] Booster) [address] [facility] 2021-01-24 Completed [facility] Vaccine (Low Dose Vaccine (Low Dose 09:46:00 - [facility] Booster) [address] 2021-01-24 Completed [facility] Vaccine (Low Dose Vaccine (Low Dose 09:46:00 - [facility] Booster) [address] [facility] 2021-01-24 Completed [facility] Vaccine (Low Dose Vaccine (Low Dose 09:46:00 - [facility] [facility]-24 Completed [facility] Vaccine (Low Dose Vaccine (Low Dose 09:46:00 - [facility] Booster) [address] [facility] 2021-01-24 Completed [facility] Vaccine (Low Dose Vaccine (Low Dose 09:46:00 - [facility] [facility]-01-24 Completed [facility] Vaccine (Low Dose Vaccine (Low Dose 09:46:00 - [facility] Booster) [facility] COVID[address] COVID19 2021-01-24 Completed [facility] Vaccine (Low Dose Vaccine (Low Dose 09:46:00 - [facility] Booster) [facility] [address] COVID19 2021-01-24 Completed [facility] Vaccine (Low Dose Vaccine (Low Dose 09:46:00 - [facility] Booster) [facility] [facility] 2021-01-24 Completed [facility] Vaccine (Low Dose Vaccine (Low Dose 09:46:00 - [facility] Booster) [facility] [address] COVID19 2021-01-24 Completed [facility] Vaccine (Low Dose Vaccine (Low Dose 09:46:00 - [facility] Booster) [facility] [facility] 2021-01-24 Completed [facility] Vaccine (Low Dose Vaccine (Low Dose 09:46:00 - [facility] Booster) [facility] [address] COVID19 2021-01-24 Completed [facility] Vaccine (Low Dose Vaccine (Low Dose 09:46:00 - [facility] Booster) [facility] [address] COVID19 2021-01-24 Completed [facility] Vaccine (Low Dose Vaccine (Low Dose 09:46:00 - [facility] Booster) [facility] [address] COVID19 2021-01-24 Completed [facility] Vaccine (Low Dose Vaccine (Low Dose 09:46:00 - [facility] Booster) [facility] [address] COVID19 2021-01-24 Completed [facility] Vaccine (Low Dose Vaccine (Low Dose 09:46:00 - [facility]) Booster) [facility] [address] COVID19 2021-01-24 Completed [facility] Vaccine (Low Dose Vaccine (Low Dose 09:46:00 - [facility]) Booster) [facility] COVID19 Valerie COVID-19 2021-01-24 Completed [facility] Vaccine (Low Dose Vaccine (Low Dose 09:46:00 - [facility] COVID-[facility] 2021-01-24 Completed [facility] Vaccine (Low Dose Vaccine (Low Dose 09:46:00 - [facility]erie COVID-19 2021-01-24 Completed [facility] Vaccine (Low Dose Vaccine (Low Dose 09:46:00 - [facility] Booster[facility] Valerie COVID-19 2021-01-24 Completed [facility] Vaccine (Low Dose Vaccine (Low Dose 09:46:00 - [facility] Booster) [facility] COVID19 Valerie COVID-19 2021-01-24 Completed [facility] Vaccine (Low Dose Vaccine (Low Dose 09:46:00 - [facility] Booster) Booster) [facility] FluAD FluAD 2021-01-16 Completed [facility] 12:11:00 [facility] FluAD FluAD 2021-01-16 Completed [facility] 12:11:00 [facility] FluAD FluAD 2021-01-16 Completed [facility] 12:11:00 [facility] FluAD FluAD 2021-01-16 Completed [facility] 12:11:00 [facility] FluAD FluAD 2021-01-16 Completed [facility] 12:11:00 [facility] FluAD FluAD 2021-01-16 Completed [facility] 12:11:00 [facility] FluAD FluAD 2021-01-16 Completed [facility] 12:11:00 [facility] FluAD FluAD 2021-01-16 Completed [facility] 12:11:00 [facility] FluAD FluAD 2021-01-16 Completed [facility] 12:11:00 [facility] FluAD FluAD 2021-01-16 Completed [facility] 12:11:00 [facility] FluAD FluAD 2021-01-16 Completed [facility] 12:11:00 - [facility] FluAD FluAD 2021-01-16 Completed [facility] 12:11:00 - [facility] FluAD FluAD 2021-01-16 Completed [facility] 12:11:00 - [facility] FluAD FluAD 2021-01-16 Completed [facility] 12:11:00 - [facility] FluAD FluAD 2021-01-16 Completed [facility] 12:11:00 - [facility] FluAD FluAD 2021-01-16 Completed [facility] 12:11:00 - [facility] FluAD FluAD 2021-01-16 Completed [facility] 12:11:00 - [facility] FluAD FluAD 2021-01-16 Completed [facility] 12:11: - [facility] FluAD FluAD 2021-01-16 Completed [facility] 12:11:00 - [facility] FluAD FluAD 2021-01-16 Completed [facility] 12:11: - [facility] FluAD FluAD 2021-01-16 Completed [facility] 12:11: - [facility] FluAD FluAD 2021-01-16 Completed [facility] 12:11:00 - [facility] FluAD FluAD 2021-01-16 Completed [facility] 12:11:00 - [facility] FluAD FluAD 2021-01-16 Completed [facility] 12:11:00 - [facility] FluAD FluAD 2021-01-16 Completed [facility] 12:11:00 - [facility] Kenalog Kenalog 2020-06-10 Completed [facility] (Triamcinolone) (Triamcinolone) 14:38:00 - [facility] FluAD FluAD 2019-12-11 Completed [facility] 15:30:00 - [facility] FluAD FluAD 2019-12-11 Completed [facility] 15:30:00 - [facility] FluAD FluAD 2019-12-11 Completed [facility] 15:30:00 - [facility] FluAD FluAD 2019-12-11 Completed [facility] 15:30:00 - [facility] FluAD FluAD 2019-12-11 Completed [facility] 15:30:00 - [facility] FluAD FluAD 2019-12-11 Completed [facility] 15:30:00 - [facility] FluAD FluAD 2019-12-11 Completed [facility] 15:30:00 - [facility] FluAD FluAD 2019-12-11 Completed [facility] 15:30:00 - [facility] FluAD FluAD 2019-12-11 Completed [facility] 15:30:00 - [facility] FluAD FluAD 2019-12-11 Completed [facility] 15:30:00 - [facility] FluAD FluAD 2019-12-11 Completed [facility] 15:30:00 - [facility] FluAD FluAD 2019-12-11 Completed [facility] 15:30:00 - [facility] FluAD FluAD 2019-12-11 Completed [facility] 15:30:00 - [facility] FluAD FluAD 2019-12-11 Completed [facility] 15:30:00 - [facility] FluAD FluAD 2019-12-11 Completed [facility] 15:30:00 - [facility] FluAD FluAD 2019-12-11 Completed [facility] 15:30:00 - [facility] FluAD FluAD 2019-12-11 Completed [facility] 15:30:00 - [facility] FluAD FluAD 2019-12-11 Completed [facility] 15:30:00 - [facility] FluAD FluAD 2019-12-11 Completed [facility] 15:30:00 - [facility] FluAD FluAD 2019-12-11 Completed [facility] 15:30:00 - [facility] FluAD FluAD 2019-12-11 Completed [facility] 15:30:00 - [facility] FluAD FluAD 2019-12-11 [facility]30[facility]00 - [facility] FluAD FluAD 2019-12-11 Completed [facility] 15:30:00 - [facility] FluAD FluAD 2019-12-11 Completed [facility] 15:30:00 - [facility] FluAD FluAD 2019-12-11 Completed [facility] 15:30:00 - [facility] FluAD FluAD 2019-12-11 Completed [facility] 00:00:00 [facility] Vital Signs Vital Name Observation Time Observation Value Comments Source height 2022-04-21 10:20:00 64 [in_i] [facility] weight 2022-04-21 10:20:00 206.0 [lb_av] [facility] temperature 2022-04-21 10:20:00 97.2 [degF] [facility] bmi 2022-04-21 10:20:00 35.36 kg/m2 [facility] oximetry 2022-04-21 10:20:00 99 % [facility] respiratory rate 2022-04-21 10:20:00 17 /min Comm on [facility] blood pressure 2022-04-21 10:20:00 118 mm[Hg] [facility] [place], [place] - systolic [facility] blood pressure 2022-04-21 10:20:00 65 mm[Hg] [facility] [place] [place] - diastolic [facility] height 2022-04-13 08:30:00 64 [in_i] [facility] weight 2022-04-13 08:30:00 208 [lb_av] [facility] temperature 2022-04-13 08:30:00 97.6 [degF] [facility] bmi 2022-04-13 08:30:00 35.7 kg/m2 [facility] blood pressure 2022-04-13 08:30:00 134 mm[Hg] [facility] - systolic [facility] blood pressure 2022-04-13 08:30:00 80 mm[Hg] [facility] - diastolic [facility] height 2022-01-15 13:40:00 65 [in_i] [facility] weight 2022-01-15 13:40:00 212.4 [lb_av] [facility] temperature 2022-01-15 13:40:00 97.2 [degF] [facility] bmi 2022-01-15 13:40:00 35.34 kg/m2 [facility] oximetry 2022-01-15 13:40:00 98 % [facility] respiratory rate 2022-01-15 13:40:00 15 /min Comm on [facility] blood pressure 2022-01-15 13:40:00 119 mm[Hg] [facility] - systolic [facility] blood pressure 2022-01-15 13:40:00 58 mm[Hg] [facility] - diastolic [facility] height 2021-11-20 14:30:00 65 [in_i] [facility] weight 2021-11-20 14:30:00 217 [lb_av] [facility] temperature 2021-11-20 14:30:00 97.9 [degF] [facility] bmi 2021-11-20 14:30:00 36.11 kg/m2 [facility] blood pressure 2021-11-20 14:30:00 122 mm[Hg] [facility] - systolic [facility] blood pressure 2021-11-20 14:30:00 80 mm[Hg] [facility] - diastolic [facility] height 2021-09-18 09:40:00 65 [in_i] [facility] weight 2021-09-18 09:40:00 222.6 [lb_av] [facility] temperature 2021-09-18 09:40:00 97.2 [degF] [facility] bmi 2021-09-18 09:40:00 37.04 kg/m2 [facility] oximetry 2021-09-18 09:40:00 99 % [facility] respiratory rate 2021-09-18 09:40:00 16 /min Comm on [facility] blood pressure 2021-09-18 09:40:00 135 mm[Hg] [facility] - systolic [facility] blood pressure 2021-09-18 09:40:00 67 mm[Hg] [facility] - diastolic [facility] height 2021-07-18 11:20:00 65 [in_i] [facility] weight 2021-07-18 11:20:00 235 [lb_av] [facility] bmi 2021-07-18 11:20:00 39.1 kg/m2 [facility] height 2021-06-12 10:30:00 65 [in_i] [facility] weight 2021-06-12 10:30:00 235 [lb_av] [facility] temperature 2021-06-12 10:30:00 97.9 [degF] [facility] bmi 2021-06-12 10:30:00 39.1 kg/m2 [facility] blood pressure 2021-06-12 10:30:00 118 mm[Hg] [facility] - systolic [facility] blood pressure 2021-06-12 10:30:00 74 mm[Hg] [facility] - diastolic [facility] height 2021-05-29 11:15:00 65 [in_i] [facility] weight 2021-05-29 11:15:00 238 [lb_av] [facility] temperature 2021-05-29 11:15:00 97.2 [degF] [facility] bmi 2021-05-29 11:15:00 39.6 kg/m2 [facility] blood pressure 2021-05-29 11:15:00 124 mm[Hg] [facility] - systolic [facility] blood pressure 2021-05-29 11:15:00 84 mm[Hg] [facility] - diastolic [facility] height 2021-04-22 11:00:00 65 [in_i] [facility] weight 2021-04-22 11:00:00 238 [lb_av] [facility] temperature 2021-04-22 11:00:00 97.9 [degF] [facility] bmi 2021-04-22 11:00:00 39.6 kg/m2 [facility] blood pressure 2021-04-22 11:00:00 128 mm[Hg] [facility] - systolic [facility] blood pressure 2021-04-22 11:00:00 74 mm[Hg] [facility] - diastolic [facility] height 2021-04-17 11:20:00 65 [in_i] [facility] weight 2021-04-17 11:20:00 239 [lb_av] [facility] bmi 2021-04-17 11:20:00 39.77 kg/m2 [facility] height 2021-02-13 14:30:00 65 [in_i] [facility] weight 2021-02-13 14:30:00 238 [lb_av] [facility] bmi 2021-02-13 14:30:00 39.6 kg/m2 [facility] blood pressure 2021-02-13 14:30:00 126 mm[Hg] [facility] - systolic [facility] blood pressure 2021-02-13 14:30:00 77 mm[Hg] [facility] - diastolic [facility] weight 2021-01-16 11:20:00 237 [lb_av] [facility] temperature 2021-01-16 11:20:00 97.2 [degF] [facility] bmi 2021-01-16 11:20:00 39.43 kg/m2 [facility] oximetry 2021-01-16 11:20:00 100 % [facility] respiratory rate 2021-01-16 11:20:00 19 /min [facility] blood pressure 2021-01-16 11:20:00 135 mm[Hg] [facility] - systolic [facility] blood pressure 2021-01-16 11:20:00 63 mm[Hg] [facility] - diastolic [facility] height 2021-01-16 11:20:00 65 [in_i] [facility] Diastolic (mm Hg) 2018-05-30 17:00:00 [facility] [place] Systolic (mm Hg) 2018-05-30 17:00:00 [facility] Height 2018-05-30 17:00:00 [facility] [place] Weight 2018-05-30 17:00:00 [facility] Temperature Oral (F) 2018-05-30 17:00:00 97 F [facility] Heart Rate 2018-05-30 17:00:00 [facility] Heart Rate 2018-05-16 16:15:00 [facility] [place] Diastolic (mm Hg) 2018-05-16 16:15:00 [facility] Systolic (mm Hg) 2018-05-16 16:15:00 [facility] Height 2018-05-16 16:15:00 [facility] [place] Weight 2018-05-16 16:15:00 [facility] [place] Temperature Oral (F) 2018-05-16 16:15:00 97.9 F [facility] [place] Procedures This patient has no known procedures. Encounters Start End Encounter Admission Attending Care Care Encounter Source Date/Time Date/Time Type Type Clinicians Facility Department ID 2022 Outpatient [id number] [facility] 10:53:00 [id number] [place] [id number] 2022-04-21 Outpatient Ryan [facility]ELSIE [facility] [id number] [facility] 13:53:01 Kianna 67722 [facility] 2022-04-20 Outpatient SALCEDO, Na STLMLC STLMLC [id number] 2 [facility] 14:18:01 [id number] [facility] 2022-04-14 Outpatient [id number] Memoria 01:06:13 [id number] [place] [id number] 2022-04-13 Outpatient SALCEDO, Na STLMLC STLMLC [id number] 2 [facility] 09:12:01 [id number] [facility] 2022-01-13 Outpatient Salcedo, Na STLMLC STLMLC [id number] 2 [facility] 14:21:01 [facility] 2021-11-21 Outpatient Salcedo, Na STLMLC STLMLC [id number] 2 [facility] 08:34:02 [facility] 2021-09-16 Outpatient Salcedo, Na STLMLC STLMLC [id number] 2 [facility] 15:50:01 [facility] 2021-07-16 Outpatient Salcedo, Na STLMLC STLMLC [id number] 2 [facility] 11:34:01 [facility] 2021-06-18 Outpatient Salcedo, Na STLMLC STLMLC [id number] 2 [facility] 16:29:01 [facility] 2021-06-11 Outpatient Salcedo, Na STLMLC STLMLC [id number] 2 [facility] 13:16:00 [facility] 2021-05-29 Outpatient Salcedo, Na STLMLC STLMLC [id number] 2 [facility] 08:22:01 [facility] 2021 Outpatient Salcedo, Na STLMLC STLMLC [id number] 2 [facility] 14:15:24 [facility] 2021 Outpatient Salcedo, Na STLMLC STLMLC [id number] 2 [facility] 14:04:04 [id number] [facility] 2021 Outpatient Salcedo, Na STLMLC STLMLC [id number] 2 [facility] 14:02:07 [id number] [facility] 2021 Outpatient Salcedo, Na STLMLC STLMLC [id number] 2 [facility] 13:27:40 [id number] [facility] 2021 Outpatient Salcedo, Na STLMLC STLMLC [id number] 2 [facility] 12:52:24 [id number] [facility] 2021 Outpatient Salcedo, Na STLMLC STLMLC [id number] 2 [facility] 12:39:46 [id number] [facility] 2021 Outpatient Salcedo, Na STLMLC STLMLC [id number] 2 [facility] 12:31:17 [id number] [facility] 2021 Outpatient Salcedo, Na STLMLC STLMLC [id number] 2 [facility] 12:05:49 [id number] [facility] 2021 Outpatient Salcedo, Na STLMLC STLMLC [id number] 2 [facility] 11:45:47 [id number] [facility] 2019-02-25 Inpatient Deanna YAO, [facility] [id number] [facility] 08:00:00 [facility] 2022-04-21 2022-04-21 OFFICE STLMLC STLMLC [id number] Co mmon 00:00:00 00:00:00 VISIT [facility] 4 [facility] 2022-04-21 2022-04-21 (TEL) STLMLC STLMLC [id number] Co mmon 00:00:00 00:00:00 [facility] 2022-04-21 2022-04-21 (TEL) STLMLC STLMLC [id number] Co mmon 00:00:00 00:00:00 [facility] 2022-04-16 2022-04-16 (TEL) STLMLC STLMLC [id number] Co mmon 00:00:00 00:00:00 [facility] 2022-04-13 2022-04-13 OFFICE STLMLC STLMLC [id number] Co mmon 00:00:00 00:00:00 VISIT [facility] ESTAB PT - CHI LEVEL 4 [facility] 2022-02-26 2022-02-26 (TEL) STLMLC STLMLC [id number] Co m[facility] 00:00:00 00:00:00 [facility] 2022-01-15 2022-01-15 OFFICE STLMLC STLMLC [id number] Co mmon 00:00:00 00:00:00 VISIT [facility] ESTAB PT - CHI LEVEL 4 [facility] 2021-12-17 2021-12-17 (TEL) STLMLC STLMLC [id number] Co mmon 00:00:00 00:00:00 [facility] 2021-11-20 2021-11-20 OFFICE STLMLC STLMLC [id number] Co mmon 00:00:00 00:00:00 VISIT [facility] PT - CHI LEVEL 4 [facility] 2021-09-26 2021-09-26 (TEL) STLMLC STLMLC [id number] Co mmon 00:00:00 00:00:00 [facility] 2021-09-18 2021-09-18 SUB ANNUAL STLMLC STLMLC [id number] [facility] 00:00:00 00:00:00 MCR [facility] WELLNESS - CHI VISIT [facility] 2021-07-18 2021-07-18 OL DIG E/M STLMLC STLMLC [id number] [facility] 00:00:00 00:00:00 SVC 21+ [facility] MIN - [facility] 2021-06-12 2021-06-12 NON-BILLAB STLMLC STLMLC [id number] [facility] 00:00:00 00:00:00 LE VISIT [facility] - [facility] 2021-06-10 2021-06-10 (TEL) STLMLC STLMLC [id number] Co mmon 00:00:00 00:00:00 [facility] 2021-05-29 2021-05-29 NON-BILLAB STLMLC STLMLC [id number] [facility] 00:00:00 00:00:00 LE VISIT [facility] - [facility] 2021-05-22 2021-05-22 (TEL) STLMLC STLMLC [id number] Co mmon 00:00:00 00:00:00 [facility] 2021-04-25 2021-04-25 (TEL) STLMLC STLMLC [id number] Co mmon 00:00:00 00:00:00 [facility] 2021 2021 (TEL) STLMLC STLMLC [id number] Co mmon 00:00:00 00:00:00 [facility] 2021-04-22 2021-04-22 OFFICE STLMLC STLMLC [id number] Co mmon 00:00:00 00:00:00 VISIT [facility] PT - CHI LEVEL 4 [facility] 2021-04-17 2021-04-17 OL DIG E/M STLMLC STLMLC [id number] [facility] 00:00:00 00:00:00 SVC 21+ [facility] MIN [facility] 2021-04-07 2021-04-07 (TEL) STLMLC STLMLC [id number] Co mmon 00:00:00 00:00:00 [facility] 2021-04-03 2021-04-03 (TEL) STLMLC STLMLC [id number] Co m[facility] 00:00:00 00:00:00 [facility] 2021-02-24 2021-02-24 (TEL) STLMLC STLMLC [id number] Co m[facility] 00:00:00 00:00:00 [facility] 2021-02-13 2021-02-13 OFFICE STLMLC STLMLC [id number] Co mmon 00:00:00 00:00:00 VISIT NEW [facility] PT LEVEL 4 [facility] 2021-01-16 2021-01-16 OFFICE STLMLC STLMLC [id number] Co mmon 00:00:00 00:00:00 VISIT [facility] PT - CHI LEVEL 4 [facility] 2020-10-15 2020-10-15 Outpatient STLMLC STLMLC [id number] [facility] 00:00:00 00:00:00 [facility] 2020-08-15 2020-08-15 Outpatient STLMLC STLMLC [id number] [facility] 00:00:00 00:00:00 [facility] 2020-08-02 2020-08-02 Outpatient STLMLC STLMLC [id number] [facility] 00:00:00 00:00:00 [facility] 2020-07-12 2020-07-12 Outpatient STLMLC STLMLC [id number] [facility] 00:00:00 00:00:00 [facility] 2020-06-10 2020-06-10 Outpatient STLMLC STLMLC [id number] [facility] 00:00:00 00:00:00 [facility] 2020-04-22 2020-04-22 Outpatient STLMLC STLMLC [id number] [facility] 00:00:00 00:00:00 [facility] 2020-04-01 2020-04-01 Outpatient STLMLC STLMLC [id number] [facility] 00:00:00 00:00:00 [facility] 2020-02-15 2020-02-15 Outpatient STLMLC STLMLC [id number] [facility] 00:00:00 00:00:00 [facility] 2020-01-17 2020-01-17 Outpatient STLMLC STLMLC [id number] [facility] 00:00:00 00:00:00 [facility] 2019-12-11 2019-12-11 [id number] [facility] 14:00:00 14:00:00 Instant Opinion [facility]az[facility] 2018-05-30 2018-05-30 Outpatient [facility] [id number] [facility] 11:00:00 11:00:00 [facility] Surgery 2018-05-17 2018-05-17 Outpatient [facility] [id number] [facility] 13:00:00 13:00:00 [facility] Surgery 2018-05-16 2018-05-16 Outpatient [facility] [id number] [facility] 10:15:00 10:15:00 [facility] General [facility] Surgery 2017-09-06 2017-09-06 Outpatient C MAXIMILIAN, [facility] [id number] [facility] 10:46:00 23:59:00 [facility] Results Test Description Test Time Test Comments Results Result [facility] arely Comments FOOT RIGHT 2017-09-06 Location of dictation: COMPLETE 3 11:17:46 [id number] foot 3 VIEWS*GP* viewsHISTORY: Bump on top [...] 14:31:02PA and lateral chest, 2 views.Location code: [id number] HISTORY: Chest painCOMPARISON: NoneCOMMENTS:The lungs are clear and well inflated. The costophrenic angles aresharp. The cardiomediastinal silhou ette is unremarkable. The bones are intact.IMPRESSION: No acute abnormality
--- NOTE | 2022-04-23 11:12 | ER ---
Nurse's Notes [facility] Name: Salina Thompson Age: 67 yrs Sex: Female : 1955 Arrival Date: 04/23/2022 Time: 10:56 Bed DIS2 Private MD: Diagnosis: Encounter for removal of sutures Presentation: 04/23 11:02 Chief complaint: Patient states: need for suture removal, reports sutures were placed aa5 04/14/22 to right outer aspect of eye. 11:02 Coronavirus screen: At this time, the client does not indicate any symptoms associated aa5 with coronavirus-19. Ebola Screen: Patient denies travel to an Ebola-affected area in the 21 days before illness onset. Initial Sepsis Screen: Does the patient meet any 2 criteria? No. Patient's initial sepsis screen is negative. Does the patient have a suspected source of infection? No. Patient's initial sepsis screen is negative. Risk Assessment: Do you want to hurt yourself or someone else? Patient reports no desire to harm self or others. Onset of symptoms was April 23, 2022. 11:02 Acuity: SAMI 4 aa5 11:02 Method Of Arrival: Ambulatory aa5 Historical: - Allergies: 11:03 Sulfa (Sulfonamide Antibiotics); aa5 - PMHx: 11:04 COPD; RLS; Hypertensive disorder; aa5 - Immunization history:: Adult Immunizations unknown. - Social history:: Smoking status: Patient denies any tobacco usage or history of. Vital Signs: 11:02 BP 129 / 48; Pulse 64; Resp 18 S; Temp 97.5(TE); Pulse Ox 100% on R/A; aa5 ED Course: 10:56 Patient arrived in ED. am2 10:59 Stef Amato MD is Attending Physician. jr11 11:02 Arm band placed on. aa5 11:03 Triage completed. aa5 11:32 Tanja Barnett, RN is Primary Nurse. iw Administered Medications: No medications were administered Outcome: 11:12 Discharge ordered by . jr11 11:32 Discharged to home ambulatory. iw 11:32 Condition: good 11:32 Discharge instructions given to patient, Instructed on discharge instructions, follow up and referral plans. 11:32 No charge visit due to suture removal. 11:33 Patient left the ED. iw Signatures: Tanja Barnett RN RN iw Zehra Sarkar RN RN aa5 Janny Lutz am2 Stef Amato MD MD jr11 Corrections: (The following items were deleted from the chart) 11:03 11:02 Chief complaint: Patient states: need for suture removal, reports sutures were aa5 placed 04/14/22 to right eye. aa5
--- NOTE | 2022-04-23 11:12 | EDPHYS ---
Physician Documentation [facility] Name: Salina Thompson Age: 67 yrs Sex: Female : 1955 Arrival Date: 04/23/2022 Time: 10:56 Bed DIS2 Private MD: ED Physician Stef Amato HPI: 04/23 11:10 This 67 yrs old Female presents to ER via Ambulatory with complaints of Suture Removal. jr11 11:10 The patient has sutures on the face. Patient last week with a mechanical fall, suffered jr11 a laceration underneath the right eye, 6 sutures, Prolene, otherwise doing well no fever. Denies any other concerns. Historical: - Allergies: 11:03 Sulfa (Sulfonamide Antibiotics); aa5 - PMHx: 11:04 COPD; RLS; Hypertensive disorder; aa5 - Immunization history:: Adult Immunizations unknown. - Social history:: Smoking status: Patient denies any tobacco usage or history of. ROS: 11:10 All other systems are negative. jr11 Exam: 11:10 Constitutional: This is a well developed, well nourished patient who is awake, alert, jr11 and in no acute distress. Eyes: Extra-ocular motions intact. Lids and lashes normal. Conjunctiva and sclera are non-icteric and not injected. Cornea within normal limits. Periorbital areas with no swelling, redness, or edema. Neck: Trachea midline, no thyromegaly or masses palpated, and no cervical lymphadenopathy. Supple, full range of motion without nuchal rigidity, or vertebral point tenderness. No Meningismus. Chest/axilla: Normal chest wall appearance and motion. Nontender with no deformity. No lesions are appreciated. Cardiovascular: Regular rate and rhythm with a normal S1 and S2. No gallops, murmurs, or rubs. Normal PMI, no JVD. No pulse deficits. Respiratory: Lungs have equal breath sounds bilaterally, clear to auscultation and percussion. No rales, rhonchi or wheezes noted. No increased work of breathing, no retractions or nasal flaring. Abdomen/GI: Soft, non-tender, with normal bowel sounds. No distension or tympany. No guarding or rebound. No evidence of tenderness throughout. Back: No spinal tenderness. No costovertebral tenderness. Full range of motion. Skin: 5cm lac healing well, [address] Vital Signs: 11:02 BP 129 / 48; Pulse 64; Resp 18 S; Temp 97.5(TE); Pulse Ox 100% on R/A; aa5 MDM: 11:08 Patient medically screened. jr11 11:10 Data reviewed: vital signs, nurses notes. ED course: six sutures removed no difficulty, jr11 tolerated procedures well,.. Administered Medications: No medications were administered Disposition Summary: 04/23/22 11:12 Discharge Ordered Location: Home [facility] Condition: Stable jr Diagnosis - Encounter for removal of sutures jr11 Discharge Instructions: - Discharge Summary Sheet jr11 - Suture Removal, Care After jr11 Forms: - Medication Reconciliation Form jr11 - Thank You Letter jr11 - Antibiotic Education jr11 - Prescription Opioid Use jr11 Signatures: Zehra Sarkar, RN RN aa5 Stef Amato MD MD jr11
[2022-04-23 11:41] VITALS: BP 129/48; TEMP 97.5; O2SAT 100
== END 2022-04-23 11:33 | disposition home or self-care (01) ==
LOC: ER 10:50
DX: Z48.02 Encounter for removal of sutures (principal)

== ENCOUNTER 2022-09-08 05:53 | Observation (INO) | payer OTHER ==
[2022-09-03 11:00] LABS: Absolute Lymphocytes (CBC) 2.2 K/uL (0.7-4.9); Hematocrit 38.1 % (36.0-45.0); Lymphocytes % 27.8 % (15.3-44.8); MCV 97.4 fL (80-100); MPV 6.6 fL (7.6-11.3); RBC Red Blood Cell Count 3.91 M/uL (3.86-4.86)
[2022-09-03 11:03] LABS: Specific Gravity 1.027 (1.005-1.030); Urine Bacteria None Seen /HPF (<20); Urine Bilirubin NEGATIVE (Negative); Urine Blood Negative (Negative); Urine Clarity Turbid (Clear); Urine Color Yellow (Yellow); Urine Glucose TRACE (Negative); Urine Protein NEGATIVE (Negative); Urine RBC <5 /HPF (None Seen); Urine Urobilinogen Normal (Normal); Urine pH 5.5 (5.0-7.0)
[2022-09-03 11:10] LABS: Protime INR 0.9
[2022-09-03 11:16] LABS: Albumin 3.6 g/dL (3.4-5.0); Bilirubin Total 0.2 mg/dL (0.2-1.0); Potassium 4.5 mEq/L (3.5-5.1); Protein, Total 7.2 g/dL (6.4-8.2)
--- NOTE | 2022-09-03 12:36 | RAD REPORT ---
EXAM DESCRIPTION: RAD - Chest Pa And Lat (2 Views) - 09/03/2022 11:12 am CLINICAL HISTORY: pre op for surgery. Hypertension COMPARISON: Chest Pa And Lat (2 Views) dated 05/20/2021 TECHNIQUE: PA and lateral views of the chest were obtained. FINDINGS: The lungs are clear. Heart size is normal and central vasculature is within normal limits. No pleural effusion or pneumothorax seen. No acute bony finding noted. IMPRESSION: No acute cardiopulmonary process.
--- NOTE | 2022-09-03 13:25 | EKG ---
Test Date: 2022-09-03 Test Time: 10:43:45 Can Crimper: NIYAH MEASUREMENT RESULTS: Intervals: Rate: 57 ND: 162 QRSD: 108 QT: 428 QTc: 416 [place]: P: 51 ND: 162 QRS: 52 T: 46 INTERPRETIVE STATEMENTS: Sinus bradycardia with premature atrial complexes Otherwise normal ECG Compared to ECG 05/20/2021 10:58:54 Atrial premature complex(es) now present Electronically Signed On 09-03-22 13:24:45 CDT by Angel Gilbert
[2022-09-08] MEDS ORDERED: CEFAZOLIN SODIUM 2 GM/VIAL ONE (06:28)
[2022-09-08] MEDS ORDERED: GABAPENTIN 100 MG CAP ONE (06:28)
[2022-09-08] MEDS ORDERED: ACETAMINOPHEN 500 MG TAB ONE (06:29)
[2022-09-08] MEDS ORDERED: Oxycodone HCl/Acetaminophen 1 TAB TAB ONE (06:29)
[2022-09-08] MEDS ORDERED: Ringers Lactate 1,000 ML IV ONE (06:29)
[2022-09-08] MEDS ORDERED: LIDOCAINE 2% MPF 5 ML VIAL ONE (06:57)
[2022-09-08] MEDS ORDERED: MIDAZOLAM HCL 2 MG/2 ML INJ ONE (06:57)
[2022-09-08] MEDS ORDERED: propofoL 200 MG/20 ML VIAL IV ONE (06:57)
[2022-09-08] MEDS ORDERED: ROCURONIUM 50 MG/5 ML VIAL IV ONE (06:57)
[2022-09-08] MEDS ORDERED: FENTANYL CITR 100 MCG/2 ML ONE (06:57)
[2022-09-08] MEDS ORDERED: ONDANSETRON 4 MG/2 ML VIAL ONE ×2 (06:58→07:42)
[2022-09-08] MEDS: TRANEXAMIC ACID 1,000 MG/10 ML VIAL IV ONE ×2 (07:38→08:44)
[2022-09-08] MEDS ORDERED: dexAMETHasone 10 MG/ML VIAL ONE ×2 (07:42→08:14)
[2022-09-08] MEDS ORDERED: LIDOCAINE 1% MPF 5 ML VIAL ONE (08:14)
[2022-09-08] MEDS ORDERED: EPINEPHRINE/PF 1 MG/ML AMP ONE (08:14)
[2022-09-08] MEDS ORDERED: ROPIVACAINE HCL 40 ML ONE (08:15)
[2022-09-08] MEDS ORDERED: EPHEDRINE SULF 50 MG/ML VIAL ONE (08:39)
--- NOTE | 2022-09-08 08:58 | RAD REPORT ---
EXAM DESCRIPTION: RAD - Hip Right 1 View - 09/08/2022 8:51 am CLINICAL HISTORY: TOTAL COMPARISON: No comparisons FINDINGS/IMPRESSION: Three intraoperative radiographs submitted showing surgical changes from a righ t hip arthroplasty.
[2022-09-08] MEDS ORDERED: ONDANSETRON 4 MG/2 ML VIAL IV PRN (09:11)
[2022-09-08] MEDS ORDERED: DOCUSATE NA 100 MG CAP PO PRN (09:11)
[2022-09-08] MEDS ORDERED: KETOROLAC 30 MG/ML INJ ONE (09:17)
--- NOTE | 2022-09-08 09:18 | P.BOP ---
Preoperative diagnosis: right hip arthritis Postoperative diagnosis: same Primary procedure: right total hip arthoplasty Estimated blood loss: 100ccs Anesthesia: General Transferred to: Recovery Room Condition: Good
[2022-09-08] MEDS ORDERED: NEOSTIGMINE 1 MG/ML -10 ML VIAL ONE (09:33)
[2022-09-08] MEDS ORDERED: GLYCOPYRROLATE 0.2 MG/ML SYR ONE (09:33)
[2022-09-08] MEDS ORDERED: HYDROMORPHONE HCL 1 MG/ML INJ ONE (09:50)
[2022-09-08] MEDS: HYDROMORPHONE HCL 1 MG/ML INJ ONE ×2 (09:57→10:14)
--- OUTSIDE RECORDS SUMMARY | 2022-09-08 10:08 | XMS REPORT | Continuity of Care Document ---
:1955 Author Organization [facility] t Address [address] [place] [address] [address] [place] [address] Care Team Providers Name Role Phone Kianna Davis Attending Clinician Unavailable Tiffanie SALCEDO Attending Clinician Unavailable BRADEN YAO Attending Clinician Unavailable DR STEFFANY BROWN Attending Clinician Unavailable BRADEN YAO Admitting Clinician Unavailable DR STEFFANY BROWN Admitting Clinician Unavailable Payers Payer Name Policy Type Policy Number Effective Date Expiration Date Najma sandoval [facility] [id number] 2021 [facility] ADVANTAGE 00:00:00 - [facility] Problems Condition Condition Condition Status Onset [...] cuong (severe) (severe) 05:10:11 l obesity obesity [place] due to due to excess excess calories calories Active Problem 06/01/2018 [facility] Chronic Chronic Problem Active 2018-06-01 Me moria obstructiv obstructiv 05:10:11 l e e [place] pulmonary pulmonary disease, disease, unspecifie unspecifie d COPD d COPD type type Active Problem 06/01/2018 [facility] Ingrown Ingrown Diagnosis Active 2018-06-01 Memoria thumb thumb 05:10:11 l nail, nail, Farrukh right right Active Diagnosis 06/01/2018 [facility] [id number] [place] [id number] tunnel Spirit syndrome - [facility] of right [facility] [id number] [place] [address] tunnel [facility] syndrome - [facility] of left wrist [facility] [id number] Urge Problem Common incontinen Spirit ce of - [facility] urine [facility] [id number] Primary Problem Commo n osteoarthr Spirit itis of - [facility]I both knees [facility] [id number] Mixed Problem Common hyperlipid Spirit emia - CHI [facility] [id number] Restless Problem Commo n leg Spirit syndrome - CHI [facility] Sciatica Lumbago Problem Common with Spirit sciatica, - CHI right side [facility] [id number] Carpal Problem Commo n [id number] tunnel [facility] syndrome - [facility] on both sides [facility] [id number] Essential Problem Comm on hypertensi Spirit on - [facility] [id number] Simple Problem Common chronic Spirit bronchitis - CHI [facility] [id number] Varicose Problem Commo n veins of [facility] bilateral - [facility] lower [facility] s with [facility] pain [facility] Chronic Other Problem Common pain chronic Spirit pain - CHI [facility] [id number] Episode of Problem Co mmon recurrent [facility] depression episode severity [id number] Primary Problem Comm on osteoarthr Spirit itis of - CHI right hip [facility] [id number] Allergic Problem Commo n rhinitis Spirit due to - CHI pollen, St unspecie [facility] d Medical seasonalit Center y Allergies, Adverse Reactions, Alerts Allergy Allergy Status Severity Reaction(s) Onset Inactive Treating Comm ents Source Name Type Date Date Clinician Bactrim Bactrim Active hives 2019-0 Memoria 3-04 l 00:00: 00 Social History Social Habit Start Date Stop Date Quantity Comments Source History of Tobacco Use Co mmon [facility] Sex Assigned At Com mon [facility] Smoking Status Start Date Stop Date Source Former Smoker 2022-07-30 00:00:00 2022-07-30 00:00:00 [facility]irit [facility] Never Smoker Common [facility] Medications Ordered Filled Start Stop Current Ordering Indication Dosage Frequency Signature Comments Components Source Medication Medication Date Date Medication? Clinician (SIG) Name Name Albuterol Albuterol 2021-03 No 2{puffs Albuterol Sulfate HFA Sulfate HFA 0-20 } Sulfate 108 (90 108 (90 00:00: HFA 108 Base) Base) 00 (90 Base) MCG/ACT MCG/ACT MCG/ACT Oxybutynin Oxybutynin 202- No 1{table BID Oxybutynin Chloride ER Chloride ER 07-18 t} Chloride 5 MG 5 MG 00:00: 00:00 ER 5 MG 00 :00 Oxybutynin Oxybutynin 2021- No 1{table BID Oxybutynin Chloride ER Chloride ER 07-18 t} Chloride 5 MG 5 MG 00:00: 00:00 ER 5 MG 00 :00 Oxybutynin Oxybutynin 2- No 1{table BID Oxybutynin Chloride ER Chloride ER 07-18 t} Chloride 5 MG 5 MG 00:00: 00:00 ER 5 MG 00 :00 Acetaminoph Acetaminoph No 1{table Acetaminop en-Codeine en-Codeine 2-24 t_as_ne [...] MG MG 00 300-30 MG Kenalog Kenalog 0 No 40mg Common (Triamcinol (Triamcinol 3-15 S pirit one) one) 00:00: - CHI 00 [facility] Kenalog Kenalog 2020-0 No 40mg Common (Triamcinol (Triamcinol 3-15 S pirit one) one) 00:00: - CHI 00 [facility] Kenalog Kenalog 2020-0 No 40mg Common (Triamcinol (Triamcinol 3-15 S pirit one) one) 00:00: - CHI 00 [facility] Kenalog Kenalog 2020-0 No 40mg Common (Triamcinol (Triamcinol 3-15 S pirit one) one) 00:00: - CHI 00 [facility] Kenalog Kenalog 2020-0 No 40mg Common (Triamcinol (Triamcinol 3-15 S pirit one) one) 00:00: - CHI 00 [facility] Kenalog Kenalog 2020-0 No 40mg Common (Triamcinol (Triamcinol 3-15 S pirit one) one) 00:00: - CHI 00 [facility] Kenalog Kenalog 2020-0 No 40mg Common (Triamcinol (Triamcinol 3-15 S pirit one) one) 00:00: - CHI 00 [facility] Kenalog Kenalog 2020-0 No 40mg Common (Triamcinol (Triamcinol 3-15 S pirit one) one) 00:00: - CHI 00 [facility] Kenalog Kenalog 2020-0 No 40mg Common (Triamcinol (Triamcinol 3-15 S pirit one) one) 00:00: - CHI 00 [facility] Kenalog Kenalog 2020-0 No 40mg Common (Triamcinol (Triamcinol 3-15 S pirit one) one) 00:00: - CHI 00 [facility] Kacy Woodruff 0 No 40mg Common (Triamcinol (Triamcinol 3-15 S pirit one) one) 00:00: - CHI 00 [facility] Kacy Woodruff 0 No 40mg Common (Triamcinol (Triamcinol 3-15 S pirit one) one) 00:00: - CHI 00 [facility] Kacy Kenredd 0 No 40mg Common (Triamcinol (Triamcinol 3-15 S pirit one) one) 00:00: - CHI 00 [facility] Kacy Woodruff 0 No 40mg Common (Triamcinol (Triamcinol 3-15 S pirit one) one) 00:00: - CHI 00 [facility] Kacy Woodruff No 40mg Common (Triamcinol (Triamcinol 3-15 S pirit one) one) 00:00: - CHI 00 [facility] Kacy Woodruff No 40mg Common (Triamcinol (Triamcinol 3-15 S pirit one) one) 00:00: - CHI 00 [facility] Kacy Kenredd 0 No 40mg Common (Triamcinol (Triamcinol 3-15 S pirit one) one) 00:00: - CHI 00 [facility] Kacy Woodruff No 40mg Common (Triamcinol (Triamcinol 3-15 S pirit one) one) 00:00: - CHI 00 [facility] Kacy Woodruff 0 No 40mg Common (Triamcinol (Triamcinol 3-15 S pirit one) one) 00:00: - CHI 00 [facility] Singulair 0 Yes Deanne not Memor ia 06-01 [place] defined l 05:10: Farrukh Irby Escitalopra 0 Yes Deanne not Mem oria m Oxalate 06-01 [place] defined l 05:10: Farrukh Irby Crestor Yes Deanne not Memoria 06-01 [place] defined l 05:10: Farrukh Irby Avalide 2019-0 Yes Deanne not Memoria 3-06 [place] defined l 05:10: Farrukh Irby ropinirole 2019-0 Yes Deanne not Calvin cuong 3-06 [place] defined l 05:10: Farrukh Irby Singulair 0 Yes Deanne not Memor ia 3-06 [place] defined l 05:10: Farrukh Irby Escitalopra [id number] Yes Deanne not Mem oria m Oxalate 3-06 [place] defined l 05:10: Farrukh Irby Crestor Yes Deanne not Memoria 3-06 [place] defined l 05:10: Farrukh Irby Avalide Yes Deanne not Memoria 3-06 [place] defined l 05:10: Farrukh Irby ropinirole 2018- Yes Deanne not Calvin cuong 3-06 [place] defined l 05:10: Farrukh Irby Singulair Yes Deanne not Memor ia 3-06 [place] defined l 05:10: Farrukh Irby Escitalopra 2019-0 Yes Deanne not Mem oria m Oxalate 3-06 [place] defined l 05:10: Farrukh Irby Crestor Yes Deanne not Memoria 3-06 [place] defined l 05:10: Farrukh Irby Avalide 0 Yes Deanne not Memoria 3-06 [place] defined l 05:10: Farrukh Irby ropinirole 2019- Yes Deanne not Calvin cuong 3-06 [place] defined l 05:10: Farrukh Irby Montelukast Montelukast Yes Na Salcedo 1 tablet Common Sodium Sodium Spirit - CHI [facility] Hydrochloro Hydrochloro Yes Na Salcedo 1 capsule Common thiazide thiazide in the Spiri t morning - CHI [facility] Indomethaci Indomethaci Yes Na Salcedo 1 capsule Common n n with food Spirit or milk - CHI [facility] Symbicort Symbicort Yes Na Salcedo 2 puffs [facility] - [facility] Irbesartan- Irbesartan- Yes Na Salcedo 1 tablet Common Hydrochloro Hydrochloro S pirit thiazide thiazide - CHI [facility] Magnesium Magnesium Yes Na Salcedo as Co mmon Glycinate Glycinate directed S pirit [facility] Rosuvastati Rosuvastati Yes Na Salcedo 1 tablet Common n [facility] Ropinirole Ropinirole Yes Na Salcedo 1 tablet Common HCl HCl Spirit [facility] Escitalopra Escitalopra Yes Na Salcedo 1 tablet Common m Oxalate m Oxalate [facility] Irbesartan- Irbesartan- No 1{table QD Irbesartan hydroCHLORO [...] No 1{table Mobic 15 t_with_ MG food} Escitalopra Escitalopra No Escitalopr m Oxalate m [...] MG le_with in 25 MG _food_o r_milk} Mobic 15 MG Mobic 15 MG No 1{table Mobic 15 t_with_ MG food} Indomethaci Indomethaci No Indomethac n 25 MG n 25 MG in 25 MG rOPINIRole rOPINIRole No 1{table TID rOPINIRole HCl 2 MG HCl 2 MG t} HCl 2 MG Albuterol Albuterol No 2{puffs Albuterol Sulfate HFA Sulfate HFA } Sulfate 108 (90 108 (90 HFA 108 Base) Base) (90 Base) MCG/ACT MCG/ACT MCG/ACT Oxybutynin Oxybutynin No Oxybutynin Chloride 5 Chloride 5 Chloride 5 MG MG MG Montelukast Montelukast No 1{table QD Montelukas Sodium 10 Sodium 10 t} t Sodium MG MG 10 MG Oxybutynin Oxybutynin No 1{table BID Oxybutynin Chloride 5 Chloride 5 t} Chloride 5 MG MG MG Magnesium Magnesium No Magnesium Glycinate Glycinate Glycinate 665 MG 665 MG 665 MG Rosuvastati Rosuvastati No 1{table QD Rosuvastat n Calcium 5 n Calcium 5 t} in Calcium MG MG 5 MG Symbicort Symbicort No 2{puffs BID Symbicort 160-4.5 160-4.5 } 160-4.5 MCG/ACT MCG/ACT MCG/ACT Albuterol Albuterol No Albuterol Sulfate HFA Sulfate HFA Sulfate 108 (90 108 (90 HFA 108 Base) Base) (90 Base) MCG/ACT MCG/ACT MCG/ACT Irbesartan- Irbesartan- No 1{table [...] Date Status Commen ts Source Name Name Prevnar 20 (PCV20) Prevnar 20 (PCV20) 2022-07-21 Completed [facility] 10:59:[facility] COVID19 [facility] COVID19 2021-01-24 Completed Co [facility] Vaccine (Low Dose Vaccine (Low Dose 09:46:00 [facility] Booster[facility] COVID19 [facility] COVID19 2021-01-24 Completed Co mmon [facility] Vaccine (Low Dose Vaccine (Low Dose 09:46:00 [facility] Booster[facility] COVID19 [facility] COVID19 2021-01-24 Completed Co mmon [facility] Vaccine (Low Dose Vaccine (Low Dose 09:46:00 [facility] Booster[facility] COVID19 [facility] COVID19 2021-01-24 Completed Co mmon [facility] Vaccine (Low Dose Vaccine (Low Dose 09:46:00 [facility] Booster[facility] COVID19 [facility] COVID19 2021-01-24 Completed Co mmon [facility] Vaccine (Low Dose Vaccine (Low Dose 09:46:00 [facility] Booster[facility] COVID19 [facility] COVID19 2021-01-24 Completed Co mmon [facility] Vaccine (Low Dose Vaccine (Low Dose 09:46:00 [facility] Booster[facility] COVID19 [facility] COVID19 2021-01-24 Completed Co mmon [facility] Vaccine (Low Dose Vaccine (Low Dose 09:46:00 [facility] Booster[facility] COVID19 [facility] COVID19 2021-01-24 Completed Co mmon [facility] Vaccine (Low Dose Vaccine (Low Dose 09:46:00 [facility] Booster) [facility] COVID19 [facility] COVID19 2021-01-24 Completed Co mmon [facility] Vaccine (Low Dose Vaccine (Low Dose 09:46:00 - [facility] Booster) [facility] COVID19 [facility] COVID19 2021-01-24 Completed Co mmon [facility] Vaccine (Low Dose Vaccine (Low Dose 09:46:00 - [facility] Booster) [facility] COVID19 [facility] COVID19 2021-01-24 Completed Co mmon [facility] Vaccine (Low Dose Vaccine (Low Dose 09:46:00 - [facility] Booster[facility] [address] COVID19 2021-01-24 Completed Co mmon [facility] Vaccine (Low Dose Vaccine (Low Dose 09:46:00 - [facility] Booster[facility] [address] [facility] 2021-01-24 Completed Co mmon [facility] Vaccine (Low Dose Vaccine (Low Dose 09:46:00 - [facility] Booster) [facility] [address] [facility] 2021-01-24 Completed Co mmon [facility] Vaccine (Low Dose Vaccine (Low Dose 09:46:00 - [facility] Booster) [facility] [address] [facility] 2021-01-24 Completed Co mmon [facility] Vaccine (Low Dose Vaccine (Low Dose 09:46:00 - [facility] Bo[facility] Booster) [facility] [address] [facility] 2021-01-24 Completed Co mmon [facility] Vaccine (Low Dose Vaccine (Low Dose 09:46:00 - [facility] Booster) [facility] [address] [facility] 2021-01-24 Completed Co mmon [facility] Vaccine (Low Dose Vaccine (Low Dose 09:46:00 - [facility] Bo[facility] Booster) [facility] [address] [facility] 2021-01-24 Completed Co mmon [facility] Vaccine (Low Dose Vaccine (Low Dose 09:46:00 - [facility] Bo[facility] Booster) [facility] [address] [facility] 2021-01-24 Completed Co mmon [facility] Vaccine (Low Dose Vaccine (Low Dose 09:46:00 - [facility] Bo[facility] Booster) [facility] [address] COVID19 2021-01-24 Completed Co mmon [facility] Vaccine (Low Dose Vaccine (Low Dose 09:46:00 - [facility] Booster) [facility] [address] COVID19 2021-01-24 Completed Co mmon [facility] Vaccine (Low Dose Vaccine (Low Dose 09:46:00 - [facility] Booster[facility] Booster) [facility] COVID19 Valerie COVID19 2021-01-24 Completed Co mmon [facility] Vaccine (Low Dose Vaccine (Low Dose 09:46:00 [facility] COVID-[facility] 2021-01-24 Completed Co m[facility] Vaccine (Low Dose Vaccine (Low Dose 09:46:00 - [facility] Booster[facility] Booster) [facility] COVIDWilli Padilla COVID-19 2021-01-24 Completed Co mmon [facility] Vaccine (Low Dose Vaccine (Low Dose 09:46:00 - [facility] Booster[facility] Booster) [facility] COVID19 Valerie COVID19 2021-01-24 Completed Co mmon [facility] Vaccine (Low Dose Vaccine (Low Dose 09:46:00 - [facility] Booster) Booster) [facility] COVIDWilli [facility] COVID[facility] 2021-01-24 Completed Co mmon [facility] Vaccine (Low Dose Vaccine (Low Dose 09:46:00 [facility] Booster[facility] Booster) [facility] FluAD FluAD 2021-01-16 Completed [facility] 12:11:00 [facility] FluAD FluAD 2021-01-16 Completed [facility] 12:11:00 [facility] FluAD FluAD 2021-01-16 Completed [facility] 12:11:00 [facility] FluAD FluAD 2021-01-16 Completed [facility] 12:11:00 [facility] FluAD FluAD 2021-01-16 Completed [facility] 12:11:00 [facility] FluAD FluAD 2021-01-16 Completed [facility] 12:11:00 [facility] FluAD FluAD 2021-01-16 Completed [facility] 12:11:00 [facility] FluAD FluAD 2021-01-16 Completed [facility] 12:11:00 [facility] FluAD FluAD 2021-01-16 Completed [facility] 12:11:00 [facility] FluAD FluAD 2021-01-16 Completed [facility] 12:11:00 [facility] FluAD FluAD 2021-01-16 Completed [facility] 12:11:00 - [facility] FluAD FluAD 2021-01-16 Completed [facility] 12:11:00 - [facility] FluAD FluAD 2021-01-16 Completed [facility] 12:11:00 - [facility] FluAD FluAD 2021-01-16 Completed [facility] 12:11:00 - [facility] FluAD FluAD 2021-01-16 Completed [facility] 12:11:00 - [facility] FluAD FluAD 2021-01-16 Completed [facility] 12:11:00 - [facility] FluAD FluAD 2021-01-16 Completed [facility] 12:11:00 - [facility] FluAD FluAD 2021-01-16 Completed [facility] 12::00 - [facility] FluAD FluAD 2021-01-16 Completed [facility] 12:11:00 - [facility] FluAD FluAD 2021-01-16 Completed [facility] 12:11: - [facility] FluAD FluAD 2021-01-16 Completed [facility] 12:11:00 - [facility] FluAD FluAD 2021-01-16 Completed [facility] 12:11:00 - [facility] FluAD FluAD 2021-01-16 Completed [facility] 12:: - [facility] FluAD FluAD 2021-01-16 Completed [facility] 12:11:00 - [facility] FluAD FluAD 2021-01-16 Completed [facility] 12:11:00 - [facility] FluAD FluAD 2021-01-16 Completed [facility] 12:11:00 - [facility] FluAD FluAD 2021-01-16 Completed [facility] 12:11:00 - [facility] Kenalog Kenalog 2020-06-10 Completed [facility] (Triamcinolone) (Triamcinolone) 14:38:00 - [facility] FluAD FluAD 2019-12-11 Completed [facility] 15:30:00 - [facility] FluAD FluAD 2019-12-11 Completed [facility] 15:30:00 - [facility] FluAD FluAD 2019-12-11 Completed [facility] 15:30:00 - [facility] FluAD FluAD 2019-12-11 Completed [facility] 15:30:00 - [facility] FluAD FluAD 2019-12-11 Completed [facility] 15:30:00 - [facility] FluAD FluAD 2019-12-11 Completed [facility] 15:30:00 - [facility] FluAD FluAD 2019-12-11 Completed [facility] 15:30:00 - [facility] FluAD FluAD 2019-12-11 Completed [facility] 15:30:00 - [facility] FluAD FluAD 2019-12-11 Completed [facility] 15:30:00 - [facility] FluAD FluAD 2019-12-11 Completed [facility] 15:30:00 - [facility] FluAD FluAD 2019-12-11 Completed [facility] 15:30:00 - [facility] FluAD FluAD 2019-12-11 Completed [facility] 15:30:00 - [facility] FluAD FluAD 2019-12-11 Completed [facility] 15:30:00 - [facility] FluAD FluAD 2019-12-11 Completed [facility] 15:30:00 - [facility] FluAD FluAD 2019-12-11 Completed [facility] 15:30:00 - [facility] FluAD FluAD 2019-12-11 Completed [facility] 15:30:00 - [facility] FluAD FluAD 2019-12-11 Completed [facility] 15:30:00 - [facility] FluAD FluAD 2019-12-11 Completed [facility] 15:30:00 - [facility] FluAD FluAD 2019-12-11 Completed [facility] 15:30:00 - [facility] FluAD FluAD 2019-12-11 Completed [facility] 15:30:00 - [facility] FluAD FluAD 2019-12-11 Completed [facility] 15:30:00 - [facility] FluAD FluAD 2019-12-11 Completed [facility] 15:30:00 - [facility] FluAD FluAD 2019-12-11 Completed [facility] 15:30:00 - [facility] FluAD FluAD 2019-12-11 Completed [facility] 15:30:00 - [facility] FluAD FluAD 2019-12-11 Completed [facility] 15:30:00 - [facility] Flu Flu 2019-12-11 Completed [facility] 15:30:00 - [facility] Flu Flu 2019-12-11 Completed [facility] 15:30:00 - [facility] FluAD FluAD 2019-12-11 Completed [facility] 00:00:00 - [facility] Vital Signs Vital Name Observation Time Observation Value Comments Source height 2022-04-21 10:20:00 64 [in_i] [facility] weight 2022-04-21 10:20:00 206.0 [lb_av] [facility] temperature 2022-04-21 10:20:00 97.2 [degF] [facility] bmi 2022-04-21 10:20:00 35.36 kg/m2 [facility] oximetry 2022-04-21 10:20:00 99 % [facility] respiratory rate 2022-04-21 10:20:00 17 /min Comm on [facility] blood pressure 2022-04-21 10:20:00 118 mm[Hg] [facility] - systolic [facility] blood pressure 2022-04-21 10:20:00 65 mm[Hg] Common [facility] - diastolic [facility] height 2022-04-13 08:30:00 64 [in_i] [facility] weight 2022-04-13 08:30:00 208 [lb_av] [facility] temperature 2022-04-13 08:30:00 97.6 [degF] [facility] bmi 2022-04-13 08:30:00 35.7 kg/m2 [facility] blood pressure 2022-04-13 08:30:00 134 mm[Hg] [facility] - systolic [facility] blood pressure 2022-04-13 08:30:00 80 mm[Hg] [facility] - diastolic [facility] height 2022-01-15 13:40:00 65 [in_i] Common [facility] weight 2022-01-15 13:40:00 212.4 [lb_av] Common [facility] temperature 2022-01-15 13:40:00 97.2 [degF] Common [facility] bmi 2022-01-15 13:40:00 35.34 kg/m2 [facility] oximetry 2022-01-15 13:40:00 98 % [facility] respiratory rate 2022-01-15 13:40:00 15 /min Comm on [facility] blood pressure 2022-01-15 13:40:00 119 mm[Hg] Common [facility] - systolic [facility] blood pressure 2022-01-15 13:40:00 58 mm[Hg] [facility] - diastolic [facility] height 2021-11-20 14:30:00 65 [in_i] Common [facility] weight 2021-11-20 14:30:00 217 [lb_av] [facility] temperature 2021-11-20 14:30:00 97.9 [degF] [facility] 2021-11-20 14:30:00 36.11 kg[facility]m2 [facility] 2021-11-20 14:30:00 122 mm[Hg] [facility] - systolic [facility] blood pressure 2021-11-20 14:30:00 80 mm[Hg] Common [facility] - diastolic [facility] height 2021-09-18 09:40:00 65 [in_i] Common [facility] weight 2021-09-18 09:40:00 222.6 [lb_av] Common [facility] temperature 2021-09-18 09:40:00 97.2 [degF] Common [facility] bmi 2021-09-18 09:40:00 37.04 kg/m2 [facility] oximetry 2021-09-18 09:40:00 99 % [facility] respiratory rate 2021-09-18 09:40:00 16 /min Comm on [facility] - [facility] blood pressure 2021-09-18 09:40:00 135 mm[Hg] [facility] - systolic [facility] blood pressure 2021-09-18 09:40:00 67 mm[Hg] [facility] - diastolic [facility] height 2021-07-18 11:20:00 65 [in_i] [facility] weight 2021-07-18 11:20:00 235 [lb_av] [facility] bmi 2021-07-18 11:20:00 39.1 kg/m2 [facility] height 2021-06-12 10:30:00 65 [in_i] [facility] weight 2021-06-12 10:30:00 235 [lb_av] [facility] temperature 2021-06-12 10:30:00 97.9 [degF] [facility] bmi 2021-06-12 10:30:00 39.1 kg/m2 Common S pirit [facility] blood pressure 2021-06-12 10:30:00 118 mm[Hg] [facility] - systolic [facility] blood pressure 2021-06-12 10:30:00 74 mm[Hg] [facility] - diastolic [facility] height 2021-05-29 11:15:00 65 [in_i] [facility] weight 2021-05-29 11:15:00 238 [lb_av] [facility] temperature 2021-05-29 11:15:00 97.2 [degF] [facility] bmi 2021-05-29 11:15:00 39.6 kg/m2 [facility] - [facility] blood pressure 2021-05-29 11:15:00 124 mm[Hg] [facility] - systolic [facility] blood pressure 2021-05-29 11:15:00 84 mm[Hg] [facility] height 2021-04-22 11:00:00 65 [in_i] [facility] - [facility] weight 2021-04-22 11:00:00 238 [lb_av] Common [facility] temperature 2021-04-22 11:00:00 97.9 [degF] Common [facility] bmi 2021-04-22 11:00:00 39.6 kg/m2 [facility] blood pressure 2021-04-22 11:00:00 128 mm[Hg] [facility] - systolic [facility] blood pressure 2021-04-22 11:00:00 74 mm[Hg] [facility] - diastolic [facility] height 2021-04-17 11:20:00 65 [in_i] [facility] - [facility] weight 2021-04-17 11:20:00 239 [lb_av] [facility] - [facility] bmi 2021-04-17 11:20:00 39.77 kg/m2 [facility] - [facility] height 2021-02-13 14:30:00 65 [in_i] [facility] - [facility] weight 2021-02-13 14:30:00 238 [lb_av] Common [facility] bmi 2021-02-13 14:30:00 39.6 kg/m2 Common [facility] - [facility] blood pressure 2021-02-13 14:30:00 126 mm[Hg] [facility] - systolic [facility] blood pressure 2021-02-13 14:30:00 77 mm[Hg] [facility] - diastolic [facility] weight 2021-01-16 11:20:00 237 [lb_av] Common [facility] temperature 2021-01-16 11:20:00 97.2 [degF] [facility] bmi 2021-01-16 11:20:00 39.43 kg/m2 [facility] oximetry 2021-01-16 11:20:00 100 % [facility] respiratory rate 2021-01-16 11:20:00 19 /min [facility] - [facility] blood pressure 2021-01-16 11:20:00 135 mm[Hg] [facility] - systolic [facility] blood pressure 2021-01-16 11:20:00 63 mm[Hg] Common [facility] - diastolic [facility] height 2021-01-16 11:20:00 65 [in_i] [facility] Heart Rate 2018-05-30 17:00:00 [facility] Diastolic (mm Hg) 2018-05-30 17:00:00 [facility] [place] Systolic (mm Hg) 2018-05-30 17:00:00 [facility] [place] Height 2018-05-30 17:00:00 [facility] Weight 2018-05-30 17:00:00 [facility] Temperature Oral (F) 2018-05-30 17:00:00 97 F [facility] Heart Rate 2018-05-16 16:15:00 [facility] Diastolic (mm Hg) 2018-05-16 16:15:00 [facility] [place] Systolic (mm Hg) 2018-05-16 16:15:00 [facility] [place] Height 2018-05-16 16:15:00 [facility] Weight 2018-05-16 16:15:00 [facility] Temperature Oral (F) 2018-05-16 16:15:00 97.9 F [facility] Procedures This patient has no known procedures. Encounters Start End Encounter Admission Attending Care Care Encounter Source Date/Time Date/Time Type Type Clinicians Facility Department ID 2022-09-08 Outpatient [id number] Memoria 10:05:26 [id number] [place] [id number] 2022-08-10 Outpatient Davis, STLMLC STLMLC [id number] Common 08:20:00 [facility] [address] [facility] 2022-07-30 Outpatient Davis, STLMLC STLMLC [id number] Common 08:34:00 [facility] [address] [facility] 2022-05-04 Outpatient Davis, STLMLC STLMLC [id number] Common 16:37:01 [facility] [address] [facility] 2022 Outpatient [id number] Memoria 10:53:00 [id number] [facility] [id number] 2022-04-21 Outpatient Davis, STLMLC STLMLC [id number] Common 13:53:01 Kianna [address] [facility] 2022-04-20 Outpatient SALCEDO, Na STLMLC STLMLC [id number] 2 Common 14:18:01 [facility] 2022-04-14 Outpatient [id number] Memoria 01:06:13 [id number] [facility] [id number] 2022-04-13 Outpatient SALCEDO, Na STLMLC STLMLC [id number] 2 Common 09:12:01 [id number] [facility] 2022-01-13 Outpatient Salcedo, Na STLMLC STLMLC [id number] Common 14:21:01 [facility] 2021-11-21 Outpatient Salcedo, Na STLMLC STLMLC [id number] 2 Common 08:34:02 [facility] 2021-09-16 Outpatient Salcedo, Na STLMLC STLMLC [id number] 2 Common 15:50:01 [facility] 2021-07-16 Outpatient Salcedo, Na STLMLC STLMLC [id number] 2 Common 11:34:01 [facility] 2021-06-18 Outpatient Salcedo, Na STLMLC STLMLC [id number] 2 Common 16:29:01 [facility] 2021-06-11 Outpatient Salcedo, Na STLMLC STLMLC [id number] 2 Common 13:16:00 [facility] 2021-05-29 Outpatient Salcedo, Na STLMLC STLMLC [id number] 2 Common 08:22:01 [facility] 2021 Outpatient Salcedo, Na STLMLC STLMLC [id number] 2 Common 14:15:24 [id number] [facility] 2021 Outpatient Salcedo, Na STLMLC STLMLC [id number] 2 Common 14:04:04 [id number] [facility] 2021 Outpatient Salcedo, Na STLMLC STLMLC [id number] 2 Common 14:02:07 [id number] [facility] 2021 Outpatient Salcedo, Na STLMLC STLMLC [id number] 2 Common 13:27:40 [id number] [facility] 2021 Outpatient Salcedo, Na STLMLC STLMLC [id number] 2 Common 12:52:24 [id number] [facility] 2021 Outpatient Salcedo, Na STLMLC STLMLC [id number] 2 Common 12:39:46 [id number] [facility] 2021 Outpatient Salcedo, Na STLMLC STLMLC [id number] 2 Common 12:31:17 [id number] [facility] 2021 Outpatient Salcedo, Na STLMLC STLMLC [id number] 2 Common 12:05:49 [id number] [facility] 2021 Outpatient Gloria, Na STLMLC STLMLC [id number] 2 Common 11:45:47 [id number] [facility] 2019-02-25 Inpatient Deanna YAO, [facility] RAD [id number] [place] 08:00:00 [facility] 2022-04-21 2022-04-21 OFFICE STLMLC STLMLC [id number] Co mmon 00:00:00 00:00:00 VISIT [facility] PT - CHI LEVEL 4 [facility] 2022-04-21 2022-04-21 (TEL) STLMLC STLMLC [id number] Co mmon 00:00:00 00:00:00 [facility] 2022-04-21 2022-04-21 (TEL) STLMLC STLMLC [id number] Co mmon 00:00:00 00:00:00 [facility] 2022-04-16 2022-04-16 (TEL) STLMLC STLMLC [id number] Co mmon 00:00:00 00:00:00 [facility] 2022-04-16 2022-04-16 (TEL) STLMLC STLMLC [id number] Co mmon 00:00:00 00:00:00 [facility] 2022-04-13 2022-04-13 OFFICE STLMLC STLMLC [id number] Co mmon 00:00:00 00:00:00 VISIT [facility] PT - CHI LEVEL 4 [facility] 2022-02-26 2022-02-26 (TEL) STLMLC STLMLC [id number] Co mmon 00:00:00 00:00:00 [facility] 2022-01-15 2022-01-15 OFFICE STLMLC STLMLC [id number] Co mmon 00:00:00 00:00:00 VISIT [facility] PT - CHI LEVEL 4 [facility] 2021-12-17 2021-12-17 (TEL) STLMLC STLMLC [id number] Co mmon 00:00:00 00:00:00 [facility] 2021-11-20 2021-11-20 OFFICE STLMLC STLMLC [id number] Co mmon 00:00:00 00:00:00 VISIT [facility] PT CHI LEVEL 4 [facility] 2021-09-26 2021-09-26 (TEL) STLMLC STLMLC [id number] Co mmon 00:00:00 00:00:00 [facility] 2021-09-18 2021-09-18 SUB ANNUAL STLMLC STLMLC [id number] Common 00:00:00 00:00:00 MCR [facility] VISIT [facility] 2021-07-18 2021-07-18 OL DIG E/M STLMLC STLMLC [id number] Common 00:00:00 00:00:00 SVC 21+ [facility] MIN [facility] 2021-06-12 2021-06-12 NON-BILLAB STLMLC STLMLC [id number] Common 00:00:00 00:00:00 [facility] 2021-06-10 2021-06-10 (TEL) STLMLC STLMLC [id number] Co mmon 00:00:00 00:00:00 [facility] 2021-05-29 2021-05-29 NON-BILLAB STLMLC STLMLC [id number] Common 00:00:00 00:00:00 LE [facility]IT [facility] 2021-05-22 2021-05-22 (TEL) STLMLC STLMLC [id number] Co mmon 00:00:00 00:00:00 [facility] 2021-04-25 2021-04-25 (TEL) STLMLC STLMLC [id number] Co mmon 00:00:00 00:00:00 [facility] 2021 2021 (TEL) STLMLC STLMLC [id number] Co mmon 00:00:00 00:00:00 [facility] 2021-04-22 2021-04-22 OFFICE STLMLC STLMLC [id number] Co mmon 00:00:00 00:00:00 VISIT [facility] PT - CHI LEVEL 4 [facility] 2021-04-17 2021-04-17 OL DIG E/M STLMLC STLMLC [id number] Common 00:00:00 00:00:00 SVC 21+ [facility] MIN [facility] 2021-04-07 2021-04-07 (TEL) STLMLC STLMLC [id number] Co mmon 00:00:00 00:00:00 [facility] 2021-04-03 2021-04-03 (TEL) STLMLC STLMLC [id number] Co mmon 00:00:00 00:00:00 [facility] 2021-02-24 2021-02-24 (TEL) STLMLC STLMLC [id number] Co mmon 00:00:00 00:00:00 [facility] 2021-02-13 2021-02-13 OFFICE STLMLC STLMLC [id number] Co mmon 00:00:00 00:00:00 [facility]IT [facility] LEVEL 4 [facility] 2021-01-16 2021-01-16 OFFICE STLMLC STLMLC [id number] Co mmon 00:00:00 00:00:00 VISIT [facility] PT - CHI LEVEL 4 [facility] 2021-01-09 2021-01-09 (TEL) STLMLC STLMLC [id number] Co mmon 00:00:00 00:00:00 [facility] 2020-10-15 2020-10-15 Outpatient STLMLC STLMLC [id number] Common 00:00:00 00:00:00 [facility] 2020-08-15 2020-08-15 Outpatient STLMLC STLMLC [id number] Common 00:00:00 00:00:00 [facility] 2020-08-02 2020-08-02 Outpatient STLMLC STLMLC [id number] Common 00:00:00 00:00:00 [facility] 2020-07-12 2020-07-12 Outpatient STLMLC STLMLC [id number] Common 00:00:00 00:00:00 [facility] 2020-06-10 2020-06-10 Outpatient STLMLC STLMLC [id number] Common 00:00:00 00:00:00 [facility] 2020-04-22 2020-04-22 Outpatient STLMLC STLMLC [id number] Common 00:00:00 00:00:00 [facility] 2020-04-01 2020-04-01 Outpatient STLMLC STLMLC [id number] Common 00:00:00 00:00:00 [facility] 2020-02-15 2020-02-15 Outpatient STLMLC STLMLC [id number] Common 00:00:00 00:00:00 [facility] 2020-01-17 2020-01-17 Outpatient STLMLC STLMLC [id number] Common 00:00:00 00:00:00 [facility] 2019-12-11 2019-12-11 [id number] Common 14:00:00 14:00:00 t [facility] [address] [facility] 2018-05-30 2018-05-30 Outpatient Lainey Hand Lainey Hand [...] Surgery Surgery 2017-09-06 2017-09-06 Outpatient Deanna YAO [facility] RAD [id number] [place] 10:46:00 23:59:00 [facility] Results Test Description Test Time Test Comments Results Result Sour e Comments FOOT RIGHT 2017-09-06 Location of dictation: COMPLETE 3 11:17:46 K0Vjgay foot 3 VIEWS*GP* viewsHISTORY: Bump on top [...] 14:31:02PA and lateral chest, 2 views.Location code: [id number] HISTORY: Chest painCOMPARISON: NoneCOMMENTS:The lungs are clear and well inflated. The costophrenic angles aresharp. The cardiomediastinal silhou ette is unremarkable. The bones are intact.IMPRESSION: No acute abnormality
[2022-09-08 10:16] VITALS: O2SAT 99
[2022-09-08 10:43] VITALS: BMI 30.9
--- NOTE | 2022-09-08 11:00 | OP ---
Date of Procedure: 09/08/2022 Surgeon: Alfonzo Aldana MD Preoperative Diagnosis: Severe right hip arthritis. Postoperative Diagnosis: Severe right hip arthritis. Procedure: Right total hip arthroplasty using the [place] system. Estimated Blood Loss: 100 cc. Complications: There were no complications. Indications For Operation: Ms. Thompson is a 67-year-old female, who unfortunately has debilitating pain related to her right hip. X-rays reveal right hip was completely degenerated superiorly and wi th a very high hip center and greatly malformed acetabulum and femoral head. Risks, benefits, and al ternatives of different methods of treating this have been discussed with her and she strongly desire s total hip arthroplasty. The risks, benefits, and alternatives of this were again discussed and she agrees to proceed. Description Of Procedure: The patient was taken to the operating room, placed in supine position. G eneral anesthesia was obtained by staff. Following this, she was then rolled left side down with an axillary roll. She was then properly positioned using hip positioners. Right lower extremity was th en prepped and draped in the usual sterile fashion for this procedure. After this, a standard disk grinder olateral incision was taken down carefully through the skin and soft tissues. There was quite a bit of adipose tissue; however, care was used to maintain the dissection and correct plane. This leads d own to the fascia. A small stab wound was made in the fascia for palpation of gluteal tendon. This was palpated and ensured that we were in the correct position. The fascial incision was then taken c arefully up to near the tip of the greater trochanter where the fibers of gluteus therese were encoun tered and they were then spread using finger pressure. After this, the sciatic nerve was palpated an d protected as the Charnley was placed. The hip was used to retract the gluteus medius and the exter nal rotators and capsule were then removed carefully protecting the sciatic nerve and tagged for late r repair. After this, the hip was then dislocated. The head was removed. There was no way to size the head as it was too deformed. The acetabulum was inspected and it was also deformed. There was a good deal of redundant labrum and capsular tissue. The labrum was excised to allow for visualizatio n of the rim of the cup. After this, it was then deepened. A reasonable amount of care being taken to try to keep the hip center lower. After this, it was then reamed up in an appropriate fashion. T he cup was then placed and does feel be very stable, but because of the less than optimal support fro m the acetabulum, a screw was then placed. After this, attention was then turned back to the femur w here the wood box maker was used for lateralization. The mender hand was used to find the canal. It was then sequentially broached up. An x-ray was taken prior to placement of the acetabular screw with t he final broach in place. The screw was then placed and appears to be in good position and after thi s was done, then the liner was placed within the acetabulum and gently tapped and seated and then the final stem was placed, which was high offset. It was trialed with a standard, which appeared to be somewhat too loose. It was then trialed with a +4, which may be ideal; however, given the high hip c enter, decision was made to try a +8. The +8 was extremely stable. She does go to full extension. There was a fairly good possibility that this may be a little long; however, it is definitely stable and she has full range of motion. Decision was made to use the +8. The final ball was then gently t apped on. It was then reduced. Care was taken to ensure there was no obstruction of the acetabulum and it is stable to full flexion, full adduction, and internal rotation to at least 40 degrees. The wound was copiously irrigated and external rotators were then repaired back to the greater trochanter via bone tunnels. This was followed by closure of the fascia in a watertight fashion using heavy Vi cryl sutures. It was followed by irrigation and closure of the skin with Vicryl followed by sd. She was then placed in Aquacel dressing. She was going to have a block after the procedure. There were no complications. /SAEEDL Voice ID: [id number] Report ID: [id number]
[2022-09-08 13:25] LABS: Hematocrit 34.6 % (36.0-45.0)
[2022-09-08] MEDS: CEFAZOLIN 1 GM in NA CHLORIDE 0.9% 50 ML IVPB SCH (16:22)
[2022-09-09] MEDS: CEFAZOLIN 1 GM in NA CHLORIDE 0.9% 50 ML IVPB SCH ×2 (00:36→08:27)
[2022-09-09 04:07] LABS: Hematocrit 30.4 % (36.0-45.0)
[2022-09-09] MEDS ORDERED: ENOXAPARIN 40 MG/0.4 ML SQ SCH (09:00)
[2022-09-09] MEDS: HYDROCODONE/APAP 7.5/325 MG TAB PO PRN ×2 (09:15→15:19)
[2022-09-09 15:58] VITALS: BP 99/50; TEMP 98.1
== END 2022-09-09 17:35 | disposition home or self-care (01) ==
LOC: OR 05:53 → 4TH 09:12
PROVIDERS: ADMIT Orthopaedic Surgery; ATTEND Orthopaedic Surgery
PROC: 0SR90JA Replacement of Right Hip Joint with Synthetic Substitute, Uncemented, Open Approach (ICD-10-PCS; principal; 2022-09-08 07:00)
DX: M16.11 Unilateral primary osteoarthritis, right hip (principal)
CPT/HCPCS: 93005; 85025; 81001; 36415 ×2; 86900; 86850; 85610; 86901; 88305; 88311; 85730; 85018 ×2; 85014 ×2; 80053; 71046; 73501; 97535 ×2; 97110 ×2; 97116 ×3; 97161; 97165; 97530 ×2; 27130; J2704; J2710; J0171; J2001 ×2; J1650; J2250; J3010; J1100 ×2; J1170 ×2; J2405 ×2; J7120; J0690 ×3; G0378

== ENCOUNTER 2023-01-06 10:30 | Day surgery (SDC) | payer OTHER ==
[2022-12-25 15:28] LABS: Absolute Lymphocytes (CBC) 2.8 K/uL (0.7-4.9); Hematocrit 36.5 % (36.0-45.0); Lymphocytes % 41.2 % (15.3-44.8); MCV 94.7 fL (80-100); MPV 6.8 fL (7.6-11.3); Platelets 353 thou/uL (152-406); RBC Red Blood Cell Count 3.86 M/uL (3.86-4.86)
[2022-12-25 15:35] LABS: Protime INR 0.92
[2022-12-25 15:43] LABS: Potassium 3.9 mEq/L (3.5-5.1)
--- NOTE | 2022-12-27 14:47 | EKG ---
Test Date: 2022-12-25 Test Time: 15:00:25 Linux Support Engineer: GUILLERMO MEASUREMENT RESULTS: Intervals: Rate: 58 MD: 172 QRSD: 114 QT: 434 QTc: 426 [place]: P: 53 MD: 172 QRS: 27 T: 40 INTERPRETIVE STATEMENTS: Sinus bradycardia Otherwise normal ECG Compared to ECG 09/03/2022 10:43:45 Atrial premature complex(es) no longer present Electronically Signed On 12-27-22 14:43:36 CDT by Angel Gilbert
[2023-01-06] MEDS ORDERED: NA CHLORIDE 0.9% 500 ML ONE (11:19)
[2023-01-06] MEDS ORDERED: HEPA 1000U/500MLS 2,000 UNIT/1,000 ML BAG IV ONE (11:24)
[2023-01-06] MEDS ORDERED: LIDOCAINE 1% 20 ML MDV ONE (11:24)
[2023-01-06] MEDS ORDERED: FENTANYL CITR 100 MCG/2 ML ONE (11:25)
[2023-01-06] MEDS ORDERED: VERAPAMIL HCL 10 MG/4 ML VIAL IV ONE (11:26)
[2023-01-06] MEDS ORDERED: HEPARIN 5000 UNIT/ML 1 ML VIAL ONE (11:26)
[2023-01-06] MEDS ORDERED: MIDAZOLAM HCL 2 MG/2 ML INJ ONE (11:26)
[2023-01-06] MEDS ORDERED: ASPIRIN 325 MG TAB ONE (11:26)
[2023-01-06] MEDS ORDERED: CLOPIDOGREL 75 MG TABLET ONE (11:26)
[2023-01-06] MEDS ORDERED: HEPARIN 10,000 UNIT/10 ML VIAL IV ONE (11:27)
[2023-01-06] MEDS ORDERED: ATROPINE SULF 1 MG/10 ML SYR IV ONE (11:27)
[2023-01-06] MEDS ORDERED: TICAGRELOR 90 MG TABLET PO ONE (11:27)
--- NOTE | 2023-01-06 12:27 | OP ---
Date of Procedure: 01/06/2023 Surgeon: ADAN STOCK Procedure Performed: Selective coronary angiogram. Indication: Severe MR prior to open-heart surgery. Access: Right radial artery 6-Belarusian closed with TR band. Complications: None. Bleeding: Less than 20 mL. Anesthesia: Total sedation time was 15 minutes. Description Of Procedure: After risks, benefits, alternatives were explained, patient agreed to proc edure and signed informal consent. Patient was brought into cardiac catheterization laboratory, prep ped and draped in usual sterile fashion. Then after proper sedation, I accessed right radial artery using pediatric micropuncture kit, placed 6-Bel[place]ian Slender sheath, took 5-[place]ian [place] 4 catheter int o aortic root, engaged left main, took standard views and then RCA and took standard views and then t he catheter was removed. Sheath was removed, placed TR band with good hemostasis. Findings: 1.Left main; large and normal. 2.LAD; moderate-sized vessel, normal. Normal diagonal branches. 3.Left circumflex; small vessel, normal. 4.RCA; very large and dominant and normal. Conclusion: Normal coronary arteries. Plan: To proceed with mitral valve replacement as planned. No need for bypass. SR/MODL Voice ID: [id number] Report ID: [id number]
[2023-01-06 13:20] VITALS: TEMP 98
[2023-01-06 14:28] VITALS: BP 147/63; O2SAT 98
== END 2023-01-06 14:15 | disposition home or self-care (01) ==
LOC: CCL 10:30
PROVIDERS: ATTEND Internal Medicine
DX: I34.0 Nonrheumatic mitral (valve) insufficiency (principal); I35.0 Nonrheumatic aortic (valve) stenosis; I10 Essential (primary) hypertension; E78.2 Mixed hyperlipidemia; R60.9 Edema, unspecified; Z87.891 Personal history of nicotine dependence; Z79.899 Other long term (current) drug therapy; Z88.2 Allergy status to sulfonamides; Z88.3 Allergy status to other anti-infective agents
CPT/HCPCS: 36415; 76937; 80048; 85025; 85610; 85730; 93005; 93454; C1893; J0461; J1644; J2001; J2250; J3010; J7040; Q9966

== ENCOUNTER 2024-01-14 08:54 | Day surgery (SDC) | payer OTHER ==
[2024-01-11 11:19] LABS: Absolute Basophils 0.1 K/uL (0-0.5); Absolute Eosinophils 0.1 K/uL (0-0.5); Absolute Lymphocytes (CBC) 2.7 K/uL (0.7-4.9); Absolute Monocytes 0.6 K/uL (0.1-1.3); Absolute Neutrophil 9.8 K/uL (1.8-8.0); Basophils % 0.4 % (0-1.3); Hemoglobin 12.7 g/dL (12.0-15.0); Lymphocytes % 20.3 % (15.3-44.8); MCH 31.5 pg (27.0-35.0); MCHC 32.5 g/dL (32.0-36.0); MPV 6.3 fL (7.6-11.3); Monocytes % 4.6 % (3.3-12.3); Neutrophils % 73.7 % (41.7-73.7); Platelets 705 thou/uL (152-406); RBC Red Blood Cell Count 4.02 M/uL (3.86-4.86); Red Cell Distribution Width 14.9 % (12.1-15.2)
[2024-01-11 11:24] LABS: PT Prothrombin Time 10.3 SECONDS (9.4-12.5); PTT, Activated Partial Thromb 34.8 SECONDS (24.3-36.9); Protime INR 0.92
--- NOTE | 2024-01-11 11:27 | RAD REPORT ---
Procedure: Chest Pa And Lat (2 Views) HISTORY: Preop for wrist surgery. COPD COMPARISON: 2022 FINDINGS: The lungs appear clear of acute infiltrate. Calcified granuloma right lung. Lungs are mildly to moder ately hyperaerated. No significant pleural effusion noted. The heart is normal size. Post surgical changes involving the chest. IMPRESSION: No acute abnormality is displayed.
[2024-01-11 11:36] LABS: Anion Gap 7.8 mEq/L (5.0-15.0); Potassium 4.8 mEq/L (3.5-5.1)
[2024-01-11 12:07] LABS: Blood Morphology Comment NOT SEEN (NOT SEEN); Platelet Estimate INCR; White Blood Cell Scan OK (OK)
--- NOTE | 2024-01-13 11:58 | EKG ---
Test Date: 2024-01-11 Test Time: 11:05:09 Direct Support Worker: NIYAH MEASUREMENT RESULTS: Intervals: Rate: 61 MO: 198 QRSD: 104 QT: 404 QTc: 406 [place]: P: 36 MO: 198 QRS: 70 T: 67 INTERPRETIVE STATEMENTS: Normal sinus rhythm Normal ECG Compared to ECG 12/25/2022 15:00:25 Sinus bradycardia no longer present Electronically Signed On 01-13-24 11:53:11 CDT by Jayden Aguirre
[2024-01-14] MEDS: Ringers Lactate 1,000 ML IV ONE (09:15)
[2024-01-14] MEDS ORDERED: BUPIVACAINE 0.5% PF 10 ML VIAL ONE (10:16)
[2024-01-14] MEDS ORDERED: LIDOCAINE 2% MPF 5 ML VIAL ONE (10:25)
[2024-01-14] MEDS ORDERED: FENTANYL CITR 100 MCG/2 ML ONE (10:25)
[2024-01-14] MEDS ORDERED: propofoL 200 MG/20 ML VIAL IV ONE (10:25)
[2024-01-14] MEDS ORDERED: dexAMETHasone 10 MG/ML VIAL ONE (10:25)
[2024-01-14] MEDS ORDERED: KETOROLAC 30 MG/ML INJ ONE (10:25)
[2024-01-14] MEDS ORDERED: ONDANSETRON 4 MG/2 ML VIAL ONE (10:25)
[2024-01-14] MEDS ORDERED: MIDAZOLAM HCL 2 MG/2 ML INJ ONE (10:25)
[2024-01-14] MEDS: CEFAZOLIN SODIUM 2 GM/VIAL ONE (10:37)
[2024-01-14] MEDS: BUPIVACAINE 0.25% PF 10 ML VIAL ONE (11:14)
--- NOTE | 2024-01-14 11:38 | P.BOP ---
Preoperative diagnosis: Left carpal tunnel syndrome, left ring finger trigger digit Postoperative diagnosis: Same Primary procedure: Left open carpal tunnel release Secondary procedure: Left ring finger A1 hu release Pile Driver Operator: NONE,NONE Estimated blood loss: 3 cc Specimen: None Findings: See dictation Anesthesia: General Complications: None Implants: None Fluids & blood products: Per anesthesia record Transferred to: Recovery Room Condition: Good
--- NOTE | 2024-01-14 11:41 | P.OP ---
Preoperative diagnosis: Left carpal tunnel syndrome, left ring finger trigger digit Postoperative diagnosis: Same Primary procedure: Left open carpal tunnel release Secondary procedure: Left ring finger A1 hu release Anesthesia: General Estimated blood loss: 3 cc Specimen: None Findings: See dictation Operative Technique: Reason for Surgery: Salina is a 68 yo female that presented to clinic with physical exam findings as well as EMG findings consistent with left carpal tunnel syndrome and left ring finger trigger digit. I discussed with the patient at length risks and benefits associated with the procedure. She expressed understanding and elected proceed with operative treatment. Description of Procedure: After informed consent was obtained the patient was identified in the preoperative holding area. The left upper extremity was marked patient. Patient then brought back to the operating room transferred the operative table in supine fashion and placed under anesthesia. The left upper extremity was exsanguinated and the tourniquet was inflated to 250 mmHg. Approximately a 3 cm longitudinal incision was made just ulnar to the thenar crease. Dissection was then taken down to the palmar fascia which was identified. A [place] elevator was then placed just deep to the palmar fascia to protect the median nerve at all times. A 15 blade was then used to release the palmar fascia and transverse carpal ligament leaving the [place] elevator to protect the nerve at all times. Any remaining fascial bands were then released using a blunt tip Metzenbaum scissor. The tips were him superficially to protect the median nerve at all times. The wound was then irrigated thoroughly with normal saline. The skin was approximated using a 5-0 Prolene. Next, attention was taken to the ring finger. A 1 and half centimeter longitudinal incision was made over the A1 hu. Dissection was taken down to the A1 hu with Ragnell retractors. The flexor tendon sheath was opened in line with the incision and a small portion was excised to minimize risk of recurrence. The flexor tendon was brought out through the incision and there was full excursion of the tendon without triggering noted. The wound was then irrigated thoroughly with normal saline. Incision was approximately using a 5-0 Prolene. Sterile dressings were applied and patient was awakened and transferred to PACU in stable condition. Postoperative plan: The patient will follow-up in 1 to 2 weeks for wound check and suture removal. They may begin to work on range of motion exercises at this time. Complications: None Implants: None Fluids & blood products: Per anesthesia record Transferred to: Recovery Room Condition: Good
[2024-01-14 11:52] VITALS: O2SAT 99
[2024-01-14 12:19] VITALS: TEMP 98
[2024-01-14 12:48] VITALS: BP 161/87
== END 2024-01-14 12:38 | disposition home or self-care (01) ==
LOC: OR 08:54
PROVIDERS: ATTEND Orthopaedic Surgery Sports Medicine
PROC: 01N50ZZ Release Median Nerve, Open Approach (ICD-10-PCS; principal; 2024-01-14 10:15)
PROC: 0LN80ZZ Release Left Hand Tendon, Open Approach (ICD-10-PCS; 2024-01-14 10:15)
DX: G56.02 Carpal tunnel syndrome, left upper limb (principal); M65.342 Trigger finger, left ring finger
CPT/HCPCS: 93005; 85025; 80048; 36415; 85610; 85730; 71046; 64721; 26055; J2704; J2001; J2250; J3010; J1100; J2405; J7120

== ENCOUNTER 2024-11-09 14:02 | Inpatient (IN) | payer OTHER ==
--- OUTSIDE RECORDS SUMMARY | 2024-11-09 14:14 | XMS REPORT | Continuity of Care Document ---
Author Name Unknown Address [address] [place] [address] [facility] Address [address] [place] [address] Care Team Providers Care Rn X Ray Name Role Phone Kianna Davis Attending Clinician Unavailable Tiffanie SALCEDO Attending Clinician Unavailable BRADEN YAO Attending Clinician UnavailSvitlana Sanderson Attending Clinician UnavailJosi Ponce Attending Clinician UnavailStef Banks I Attending Clinician UnavailDR STEFFANY Martino Attending Clinician Unavaila BRADEN Delarosa Admitting Clinician UnavailSvitlana Sanderson Admitting Clinician UnavailVijay Jennings Admitting Clinician UnavailJosi Ponce Admitting Clinician UnavailStef Banks I Admitting Clinician Unavaila DR STEFFANY Loera Admitting Clinician Unavailangel cruz Payers Payer Name Policy Type Policy Number Effective Date Expirati on Date Source [facility] AARP MCR Advantage (HMO-POS) [id number] 2021 00:00:00 [facility] [place] [facility] Problems Condition Name Condition Details Condition Category Status Onset Date Resolution Date Last Treatment Date Treating Clinician Comments Source Superficia l pain on intercours e Superficia l Pain on Intercours e Problem Active 11-08 00:00: 00 [facility] Genuine stress incontinen ce Genuine Stress Incontinen ce Problem Active 11-08 00:00: 00 [facility] Pruritus of vulva Pruritus of Vulva Problem Active 11-08 00:00: 00 [facility] Atrophic vaginitis Atrophic Vaginitis Problem Active 11-08 00:00: 00 [facility] Urge incontinen ce of urine Urge Incontinen ce of Urine Problem Active 11-08 00:00: 00 [facility] [id number] Carpal tunnel syndrome of right wrist Problem [facility] [id number] Carpal tunnel syndrome, left Problem [facility] [id number] Nonrheumat ic aortic valve stenosis Problem [facility] [id number] Thyroid nodule Problem [facility] [id number] Nonrheumat ic mitral valve stenosis Problem [facility] [id number] Abnormal mammogram Problem [facility] Cervical radiculopa thy Cervical radiculopa thy Problem [facility] [id number] COPD exacerbati on Problem [facility] [id number] History of total right hip replacemen t Problem [facility] [id number] Brain atrophy Problem [facility] [id number] Primary osteoarthr itis of both knees Problem [facility] [id number] Mixed hyperlipid emia Problem [facility] [id number] Restless leg syndrome Problem [facility] Sciatica Lumbago with sciatica, right side Problem [facility] [id number] Carpal tunnel syndrome on both sides Problem [facility] [id number] Essential hypertensi on Problem [facility] [id number] Simple chronic bronchitis Problem [facility] [place] [facility] [id number] 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 Problem [facility] Chronic pain Other chronic pain Problem [facility] [id number] Episode of recurrent major depressive disorder, unspecifie d depression episode severity Problem [facility] [id number] Primary osteoarthr itis of right hip Problem [facility] [id number] Allergic rhinitis due to pollen, unspecifie d seasonalit y Problem [facility] [id number] Aftercare following joint replacemen t surgery Problem [facility] [place] [facility] [id number] Presence of right artificial hip joint Problem [facility] [id number] Arthritis of right hip Problem [facility] [id number] Status post total replacemen t of right hip Problem [facility] [id number] Swelling of right lower extremity Problem [facility] [id number] Aortic valve stenosis, etiology of cardiac valve disease unspecifie d Problem [facility] Nail fungus Nail fungus Active Problem 06/01/2018 [facility] Problem Active 2018-06-01 05:10:11 [facility] Body mass index (BMI) of 45.0-49.9 in adult Body mass index (BMI) of 45.0-49.9 in adult Active Problem 06/01/2018 [facility] Problem Active 2018-06-01 05:10:11 Franc [facility] Morbid (severe) obesity due to excess calories Morbid (severe) obesity due to excess calories Active Problem 06/01/2018 [facility] Problem Active 2018-06-01 05:10:11 Franc Chadwick Chronic obstructiv e pulmonary disease, unspecifie d COPD type Chronic obstructiv e pulmonary disease, unspecifie d COPD type Active Problem 06/01/2018 [facility] Problem Active 2018-06-01 05:10:11 Franc [facility] Ingrown thumb nail, right Ingrown thumb nail, right Active Diagnosis 06/01/2018 [facility] Diagnosis Active 2018-06-01 05:10:11 Franc [facility] Allergies, Adverse Reactions, Alerts Allergy Name Allergy Type Status Severity Reaction(s) Onset Date Inactive Date Treating Clinician Comments Source sulfamet hoxazole DA Active [place] [facility] 2022-03 0- 00:00: 00 [facility] trimetho prim DA Active [place] [facility] 2022-03 0 00:00: 00 [facility] Bactrim Bactrim Active hives 05-30 00:00: 00 Franc [facility] sulfamet hoxazole DA Active [place] [facility] 8 00:00: 00 [facility] trimetho prim DA Active [place] [facility] 8 00:00: 00 [facility] Bactrim Allergy to substanc e Active Mild to moderate Hives [facility] SULFA (SULFONA MIDE ANTIBIOT ICS) Allergy to substanc e Active [facility] sulfamet hoxazole / trimetho prim sulfamet hoxazole / trimetho prim Active Unknown [facility] SULFAMET HOXAZOLE -TRIMETH OPRIM Allergy to substanc e Active [facility] Trimetho prim Allergy to substanc e Active [facility] Social History Social Habit Start Date Stop Date Quantity Comments Source History of Tobacco Use Current Smoker [facility] Sex Assigned At [facility] Smoking Status Start Date Stop Date Source Unknown if ever smoked [facility] [place] [facility] Former Smoker [facility] Current Smoker 2024-06-14 00:00:00 [facility] Never Smoker [facility] Medications Ordered Medication Name Filled Medication Name Start Date Stop Date Current Medication? Ordering Clinician Indication Dosage Frequency Signature (SIG) Comments Components Source oxyBUTYnin Chloride ER 10 MG oxyBUTYnin Chloride ER 10 MG 2023-03 0 00:00: 00 No 1{table t} BID oxyBUTYnin Chloride ER 10 MG Kenalog (Triamcinol one) Kenalog (Triamcinol one) 15 00:00: 00 No 40mg [facility] Singulair 3-06 05:10: 11 Yes Deanne Vossoughi not defined [facility] Escitalopra m Oxalate 06-01 05:10: 11 Yes Deanne Vossoughi not defined [facility] Crestor 06-01 05:10: 11 Yes Deanne Vossoughi not defined Memoria l [facility] Avalide 06-01 05:10: 11 Yes Deanne Vossoughi not defined Memoria l [facility] ropinirole 06-01 05:10: 11 Yes Deanne Vossoughi not defined [facility] albuterol sulfate HFA 90 mcg/actuati on aerosol inhaler INHALE 2 PUFFS BY MOUTH EVERY 6 HOURS NEEDED FOR SHORTNESS OF BREATH FOR 30 DAYS albuterol sulfate HFA 90 mcg/actuati on aerosol inhaler INHALE 2 PUFFS BY MOUTH EVERY 6 HOURS NEEDED FOR SHORTNESS OF BREATH FOR 30 DAYS No albuterol sulfate HFA 90 mcg/actuat ion aerosol inhaler INHALE 2 PUFFS BY MOUTH EVERY 6 HOURS NEEDED FOR SHORTNESS OF BREATH FOR 30 DAYS [facility] atorvastati n 40 mg tablet TAKE 1 TABLET BY MOUTH EVERYDAY AT BEDTIME atorvastati n 40 mg tablet TAKE 1 TABLET BY MOUTH EVERYDAY AT BEDTIME No atorvastat in 40 mg tablet TAKE 1 TABLET BY MOUTH EVERYDAY AT BEDTIME [facility] Diflucan 150 mg tablet 1 tablet now & 1 again in 3 days. Diflucan 150 mg tablet 1 tablet now & 1 again in 3 days. No Diflucan 150 mg tablet 1 tablet now & 1 again in 3 days. [facility] escitalopra m 10 mg tablet TAKE 1 TABLET BY MOUTH EVERY DAY escitalopra m 10 mg tablet TAKE 1 TABLET BY MOUTH EVERY DAY No escitalopr am 10 mg tablet TAKE 1 TABLET BY MOUTH EVERY DAY [facility] estradiol 0.01% (0.1 mg/gram) vaginal cream Insert 0.5 g 3 times a week by vaginal route for 90 days. estradiol 0.01% (0.1 mg/gram) vaginal cream Insert 0.5 g 3 times a week by vaginal route for 90 days. No .5g Q56H estradiol 0.01% (0.1 mg/gram) vaginal cream Insert 0.5 g 3 times a week by vaginal route for 90 days. [facility] metoprolol tartrate 25 mg tablet TAKE 1/2 TABLET BY MOUTH EVERY 12 HOURS metoprolol tartrate 25 mg tablet TAKE 1/2 TABLET BY MOUTH EVERY 12 HOURS No metoprolol tartrate 25 mg tablet TAKE 1/2 TABLET BY MOUTH EVERY 12 HOURS [facility] oxybutynin chloride ER 10 mg tablet,exte nded release 24 hr TAKE 1 TABLET BY MOUTH TWICE A DAY oxybutynin chloride ER 10 mg tablet,exte nded release 24 hr TAKE 1 TABLET BY MOUTH TWICE A DAY No oxybutynin chloride ER 10 mg tablet,ext ended release 24 hr TAKE 1 TABLET BY MOUTH TWICE A DAY [facility] ropinirole 2 mg tablet TAKE 1 TABLET BY MOUTH THREE TIMES A DAY ropinirole 2 mg tablet TAKE 1 TABLET BY MOUTH THREE TIMES A DAY No ropinirole 2 mg tablet TAKE 1 TABLET BY MOUTH THREE TIMES A DAY [facility] spironolact one 25 mg tablet TAKE 1 TABLET BY MOUTH EVERY DAY spironolact one 25 mg tablet TAKE 1 TABLET BY MOUTH EVERY DAY No spironolac tone 25 mg tablet TAKE 1 TABLET BY MOUTH EVERY DAY [facility] Symbicort 160 mcg-4.5 mcg/actuati on HFA aerosol inhaler INHALE 2 PUFFS INTO THE LUNGS TWICE A DAY Symbicort 160 mcg-4.5 mcg/actuati on HFA aerosol inhaler INHALE 2 PUFFS INTO THE LUNGS TWICE A DAY No Symbicort 160 mcg-4.5 mcg/actuat ion HFA aerosol inhaler INHALE 2 PUFFS INTO THE LUNGS TWICE A DAY [facility] tolterodine 2 mg tablet Take 1 tablet every day by oral route for 30 days. tolterodine 2 mg tablet Take 1 tablet every day by oral route for 30 days. No 1 Q1D tolterodin e 2 mg tablet Take 1 tablet every day by oral route for 30 days. [facility] triamcinolo ne acetonide 0.5 % topical ointment APPLY A THIN LAYER TO THE AFFECTED AREA(S) BY TOPICAL ROUTE 2 TIMES PER DAY triamcinolo ne acetonide 0.5 % topical ointment APPLY A THIN LAYER TO THE AFFECTED AREA(S) BY TOPICAL ROUTE 2 TIMES PER DAY No triamcinol one acetonide 0.5 % topical ointment APPLY A THIN LAYER TO THE AFFECTED AREA(S) BY TOPICAL ROUTE 2 TIMES PER DAY [facility] rOPINIRole HCl 2 MG rOPINIRole HCl 2 MG No 1{table t} TID rOPINIRole HCl 2 MG Escitalopra m Oxalate 10 MG Escitalopra m Oxalate 10 MG No Escitalopr am Oxalate 10 MG Symbicort 160-4.5 MCG/ACT Symbicort 160-4.5 MCG/ACT No 2{puffs } BID Symbicort 160-4.5 MCG/ACT Spironolact one 25 MG Spironolact one 25 MG No 1{table t} Spironolac tone 25 MG Metoprolol Tartrate 25 MG Metoprolol Tartrate 25 MG No BID Metoprolol Tartrate 25 MG Albuterol Sulfate HFA 108 (90 Base) MCG/ACT Albuterol Sulfate HFA 108 (90 Base) MCG/ACT No 2{puffs } Albuterol Sulfate HFA 108 (90 Base) MCG/ACT Irbesartan- hydroCHLORO thiazide 150-12.5 MG Irbesartan- hydroCHLORO thiazide 150-12.5 MG No 1{table t} QD Irbesartan -hydroCHLO ROthiazide 150-12.5 MG Rosuvastati n Calcium 5 MG Rosuvastati n Calcium 5 MG No 1{table t} QD Rosuvastat in Calcium 5 MG Immunizations Ordered Immunization Name Filled Immunization Name Date Status Comments Source Prevnar 20 (PCV20) Prevnar 20 (PCV20) 2022-07-21 10:59:00 [facility] Prevnar 20 (PCV20) Prevnar 20 (PCV20) 2022-07-21 10:59:00 Completed [facility] Moderna COVID-19 Vaccine (Low Dose Booster) Moderna COVID-19 Vaccine (Low Dose Booster) 2021-01-24 09:46:00 Completed [facility] Moderna COVID-19 Vaccine (Low Dose Booster) Moderna COVID-19 Vaccine (Low Dose Booster) 2021-01-24 09:46:00 Completed [facility] Moderna COVID-19 Vaccine (Low Dose Booster) Moderna COVID-19 Vaccine (Low Dose Booster) 2021-01-24 09:46:00 Completed [facility] Moderna COVID-19 Vaccine (Low Dose Booster) Moderna COVID-19 Vaccine (Low Dose Booster) 2021-01-24 09:46:00 Completed [facility] Moderna COVID-19 Vaccine (Low Dose Booster) Moderna COVID-19 Vaccine (Low Dose Booster) 2021-01-24 09:46:00 Completed [facility] Moderna COVID-19 Vaccine (Low Dose Booster) Moderna COVID-19 Vaccine (Low Dose Booster) 2021-01-24 09:46:00 Completed [facility] Moderna COVID-19 Vaccine (Low Dose Booster) Moderna COVID-19 Vaccine (Low Dose Booster) 2021-01-24 09:46:00 Completed [facility] Moderna COVID-19 Vaccine (Low Dose Booster) Moderna COVID-19 Vaccine (Low Dose Booster) 2021-01-24 09:46:00 Completed [facility] Moderna COVID-19 Vaccine (Low Dose Booster) Moderna COVID-19 Vaccine (Low Dose Booster) 2021-01-24 09:46:00 Completed [facility] Moderna COVID-19 Vaccine (Low Dose Booster) Moderna COVID-19 Vaccine (Low Dose Booster) 2021-01-24 09:46:00 Completed [facility] Moderna COVID-19 Vaccine (Low Dose Booster) Moderna COVID-19 Vaccine (Low Dose Booster) 2021-01-24 09:46:00 Completed [facility] Moderna COVID-19 Vaccine (Low Dose Booster) Moderna COVID-19 Vaccine (Low Dose Booster) 2021-01-24 09:46:00 Completed [facility] Moderna COVID-19 Vaccine (Low Dose Booster) Moderna COVID-19 Vaccine (Low Dose Booster) 2021-01-24 09:46:00 Completed [facility] Moderna COVID-19 Vaccine (Low Dose Booster) Moderna COVID-19 Vaccine (Low Dose Booster) 2021-01-24 09:46:00 Completed [facility] FluAD FluAD 2021-01-16 12:11:00 Completed [facility] FluAD FluAD 2021-01-16 12:11:00 Completed [facility] FluAD FluAD 2021-01-16 12:11:00 Completed [facility] FluAD FluAD 2021-01-16 12:11:00 Completed [facility] FluAD FluAD 2021-01-16 12:11:00 Completed [facility] FluAD FluAD 2021-01-16 12:11:00 Completed [facility] FluAD FluAD 2021-01-16 12:11:00 Completed [facility] FluAD FluAD 2021-01-16 12:11:00 Completed [facility] FluAD FluAD 2021-01-16 12:11:00 Completed [facility] FluAD FluAD 2021-01-16 12:11:00 Completed [facility] FluAD FluAD 2021-01-16 12:11:00 Completed [facility] FluAD FluAD 2021-01-16 12:11:00 Completed [facility] FluAD FluAD 2021-01-16 12:11:00 Completed [facility] FluAD FluAD 2021-01-16 12:11:00 Completed [facility] Kenalog (Triamcinolone) Kenalog (Triamcinolone) 2020-06-10 14:38:00 Completed [facility] FluAD FluAD 2019-12-11 15:30:00 Completed [facility] FluAD FluAD 2019-12-11 15:30:00 Completed [facility] FluAD FluAD 2019-12-11 15:30:00 Completed [facility] FluAD FluAD 2019-12-11 15:30:00 Completed [facility] FluAD FluAD 2019-12-11 15:30:00 Completed [facility] FluAD FluAD 2019-12-11 15:30:00 Completed [facility] FluAD FluAD 2019-12-11 15:30:00 Completed [facility] FluAD FluAD 2019-12-11 15:30:00 Completed [facility] FluAD FluAD 2019-12-11 15:30:00 Completed [facility] FluAD FluAD 2019-12-11 15:30:00 Completed [facility] FluAD FluAD 2019-12-11 15:30:00 Completed [facility] FluAD FluAD 2019-12-11 15:30:00 Completed [facility] FluAD FluAD 2019-12-11 15:30:00 Completed [facility] FluAD FluAD 2019-12-11 15:30:00 Completed [facility] FluAD FluAD 2019-12-11 00:00:00 Completed [facility] Prevnar 20 (PCV20) Prevnar 20 (PCV20) Unknown Completed [facility] Moderna COVID-19 Vaccine (Low Dose Booster) Moderna COVID-19 Vaccine (Low Dose Booster) Unknown Completed [facility] Pfizer COVID-19 Vaccine Pfizer COVID-19 Vaccine Unknown Completed [facility] FluAD FluAD Unknown Completed [facility] FLUZONE HIGH DOSE OVER 65 FLUZONE HIGH DOSE OVER 65 Unknown Completed [facility] Prevnar 20 (PCV20) Prevnar 20 (PCV20) Unknown Completed [facility] Moderna COVID-19 Vaccine (Low Dose Booster) Moderna COVID-19 Vaccine (Low Dose Booster) Unknown Completed [facility] Pfizer COVID-19 Vaccine Pfizer COVID-19 Vaccine Unknown Completed [facility] FluAD FluAD Unknown Completed [facility] FLUZONE HIGH DOSE OVER 65 FLUZONE HIGH DOSE OVER 65 Unknown Completed [facility] Prevnar 20 (PCV20) Prevnar 20 (PCV20) Unknown Completed [facility] Moderna COVID-19 Vaccine (Low Dose Booster) Moderna COVID-19 Vaccine (Low Dose Booster) Unknown Completed [facility] Pfizer COVID-19 Vaccine Pfizer COVID-19 Vaccine Unknown Completed [facility] FluAD FluAD Unknown Completed [facility] FLUZONE HIGH DOSE OVER 65 FLUZONE HIGH DOSE OVER 65 Unknown Completed [facility] Prevnar 20 (PCV20) Prevnar 20 (PCV20) Unknown Completed [facility] Moderna COVID-19 Vaccine (Low Dose Booster) Moderna COVID-19 Vaccine (Low Dose Booster) Unknown Completed [facility] Pfizer COVID-19 Vaccine Pfizer COVID-19 Vaccine Unknown Completed [facility] FluAD FluAD Unknown Completed [facility] FLUZONE HIGH DOSE OVER 65 FLUZONE HIGH DOSE OVER 65 Unknown Completed [facility] Prevnar 20 (PCV20) Prevnar 20 (PCV20) Unknown Completed [facility] Moderna COVID-19 Vaccine (Low Dose Booster) Moderna COVID-19 Vaccine (Low Dose Booster) Unknown Completed [facility] Pfizer COVID-19 Vaccine Pfizer COVID-19 Vaccine Unknown Completed [facility] FluAD FluAD Unknown Completed [facility] FLUZONE HIGH DOSE OVER 65 FLUZONE HIGH DOSE OVER 65 Unknown Completed [facility] Prevnar 20 (PCV20) Prevnar 20 (PCV20) Unknown Completed [facility] Moderna COVID-19 Vaccine (Low Dose Booster) Moderna COVID-19 Vaccine (Low Dose Booster) Unknown Completed [facility] Pfizer COVID-19 Vaccine Pfizer COVID-19 Vaccine Unknown Completed [facility] FluAD FluAD Unknown Completed [facility] FLUZONE HIGH DOSE OVER 65 FLUZONE HIGH DOSE OVER 65 Unknown Completed [facility] Prevnar 20 (PCV20) Prevnar 20 (PCV20) Unknown Completed [facility] Moderna COVID-19 Vaccine (Low Dose Booster) Moderna COVID-19 Vaccine (Low Dose Booster) Unknown Completed [facility] Pfizer COVID-19 Vaccine Pfizer COVID-19 Vaccine Unknown Completed [facility] FluAD FluAD Unknown Completed [facility] FLUZONE HIGH DOSE OVER 65 FLUZONE HIGH DOSE OVER 65 Unknown Completed [facility] Prevnar 20 (PCV20) Prevnar 20 (PCV20) Unknown Completed [facility] Moderna COVID-19 Vaccine (Low Dose Booster) Moderna COVID-19 Vaccine (Low Dose Booster) Unknown Completed [facility] Pfizer COVID-19 Vaccine Pfizer COVID-19 Vaccine Unknown Completed [facility] FluAD FluAD Unknown Completed [facility] FLUZONE HIGH DOSE OVER 65 FLUZONE HIGH DOSE OVER 65 Unknown Completed [facility] Prevnar 20 (PCV20) Prevnar 20 (PCV20) Unknown Completed [facility] Moderna COVID-19 Vaccine (Low Dose Booster) Moderna COVID-19 Vaccine (Low Dose Booster) Unknown Completed [facility] Pfizer COVID-19 Vaccine Pfizer COVID-19 Vaccine Unknown Completed [facility] FluAD FluAD Unknown Completed [facility] FLUZONE HIGH DOSE OVER 65 FLUZONE HIGH DOSE OVER 65 Unknown Completed [facility] Prevnar 20 (PCV20) Prevnar 20 (PCV20) Unknown Completed [facility] Moderna COVID-19 Vaccine (Low Dose Booster) Moderna COVID-19 Vaccine (Low Dose Booster) Unknown Completed [facility] Pfizer COVID-19 Vaccine Pfizer COVID-19 Vaccine Unknown Completed [facility] FluAD FluAD Unknown Completed [facility] FLUZONE HIGH DOSE OVER 65 FLUZONE HIGH DOSE OVER 65 Unknown Completed [facility] Prevnar 20 (PCV20) Prevnar 20 (PCV20) Unknown Completed [facility] Moderna COVID-19 Vaccine (Low Dose Booster) Moderna COVID-19 Vaccine (Low Dose Booster) Unknown Completed [facility] Pfizer COVID-19 Vaccine Pfizer COVID-19 Vaccine Unknown Completed [facility] FluAD FluAD Unknown Completed [facility] FLUZONE HIGH DOSE OVER 65 FLUZONE HIGH DOSE OVER 65 Unknown Completed [facility] Prevnar 20 (PCV20) Prevnar 20 (PCV20) Unknown Completed [facility] Moderna COVID-19 Vaccine (Low Dose Booster) Moderna COVID-19 Vaccine (Low Dose Booster) Unknown Completed [facility] Pfizer COVID-19 Vaccine Pfizer COVID-19 Vaccine Unknown Completed [facility] FluAD FluAD Unknown Completed [facility] FLUZONE HIGH DOSE OVER 65 FLUZONE HIGH DOSE OVER 65 Unknown Completed [facility] Prevnar 20 (PCV20) Prevnar 20 (PCV20) Unknown Completed [facility] Moderna COVID-19 Vaccine (Low Dose Booster) Moderna COVID-19 Vaccine (Low Dose Booster) Unknown Completed [facility] Pfizer COVID-19 Vaccine Pfizer COVID-19 Vaccine Unknown Completed [facility] FluAD FluAD Unknown Completed [facility] FLUZONE HIGH DOSE OVER 65 FLUZONE HIGH DOSE OVER 65 Unknown Completed [facility] Prevnar 20 (PCV20) Prevnar 20 (PCV20) Unknown Completed [facility] Moderna COVID-19 Vaccine (Low Dose Booster) Moderna COVID-19 Vaccine (Low Dose Booster) Unknown Completed [facility] Pfizer COVID-19 Vaccine Pfizer COVID-19 Vaccine Unknown Completed [facility] FluAD FluAD Unknown Completed [facility] FLUZONE HIGH DOSE OVER 65 FLUZONE HIGH DOSE OVER 65 Unknown Completed [facility] Prevnar 20 (PCV20) Prevnar 20 (PCV20) Unknown Completed [facility] Moderna COVID-19 Vaccine (Low Dose Booster) Moderna COVID-19 Vaccine (Low Dose Booster) Unknown Completed [facility] Pfizer COVID-19 Vaccine Pfizer COVID-19 Vaccine Unknown Completed [facility] FluAD FluAD Unknown Completed [facility] FLUZONE HIGH DOSE OVER 65 FLUZONE HIGH DOSE OVER 65 Unknown Completed [facility] Prevnar 20 (PCV20) Prevnar 20 (PCV20) Unknown Completed [facility] Moderna COVID-19 Vaccine (Low Dose Booster) Moderna COVID-19 Vaccine (Low Dose Booster) Unknown Completed [facility] Pfizer COVID-19 Vaccine Pfizer COVID-19 Vaccine Unknown Completed [facility] FluAD FluAD Unknown Completed [facility] FLUZONE HIGH DOSE OVER 65 FLUZONE HIGH DOSE OVER 65 Unknown Completed [facility] Prevnar 20 (PCV20) Prevnar 20 (PCV20) Unknown Completed [facility] Moderna COVID-19 Vaccine (Low Dose Booster) Moderna COVID-19 Vaccine (Low Dose Booster) Unknown Completed [facility] Pfizer COVID-19 Vaccine Pfizer COVID-19 Vaccine Unknown Completed [facility] FluAD FluAD Unknown Completed [facility] FLUZONE HIGH DOSE OVER 65 FLUZONE HIGH DOSE OVER 65 Unknown Completed [facility] Prevnar 20 (PCV20) Prevnar 20 (PCV20) Unknown Completed [facility] Moderna COVID-19 Vaccine (Low Dose Booster) Moderna COVID-19 Vaccine (Low Dose Booster) Unknown Completed [facility] Pfizer COVID-19 Vaccine Pfizer COVID-19 Vaccine Unknown Completed [facility] FluAD FluAD Unknown Completed [facility] FLUZONE HIGH DOSE OVER 65 FLUZONE HIGH DOSE OVER 65 Unknown Completed [facility] Prevnar 20 (PCV20) Prevnar 20 (PCV20) Unknown Completed [facility] Moderna COVID-19 Vaccine (Low Dose Booster) Moderna COVID-19 Vaccine (Low Dose Booster) Unknown Completed [facility] Pfizer COVID-19 Vaccine Pfizer COVID-19 Vaccine Unknown Completed [facility] FluAD FluAD Unknown Completed [facility] FLUZONE HIGH DOSE OVER 65 FLUZONE HIGH DOSE OVER 65 Unknown Completed [facility] Prevnar 20 (PCV20) Prevnar 20 (PCV20) Unknown Completed [facility] Moderna COVID-19 Vaccine (Low Dose Booster) Moderna COVID-19 Vaccine (Low Dose Booster) Unknown Completed [facility] Pfizer COVID-19 Vaccine Pfizer COVID-19 Vaccine Unknown Completed [facility] FluAD FluAD Unknown Completed [facility] FLUZONE HIGH DOSE OVER 65 FLUZONE HIGH DOSE OVER 65 Unknown Completed [facility] Prevnar 20 (PCV20) Prevnar 20 (PCV20) Unknown Completed [facility] Moderna COVID-19 Vaccine (Low Dose Booster) Moderna COVID-19 Vaccine (Low Dose Booster) Unknown Completed [facility] Pfizer COVID-19 Vaccine Pfizer COVID-19 Vaccine Unknown Completed [facility] FluAD FluAD Unknown Completed [facility] FLUZONE HIGH DOSE OVER 65 FLUZONE HIGH DOSE OVER 65 Unknown Completed [facility] Prevnar 20 (PCV20) Prevnar 20 (PCV20) Unknown Completed [facility] Moderna COVID-19 Vaccine (Low Dose Booster) Moderna COVID-19 Vaccine (Low Dose Booster) Unknown Completed [facility] Pfizer COVID-19 Vaccine Pfizer COVID-19 Vaccine Unknown Completed [facility] FluAD FluAD Unknown Completed [facility] FLUZONE HIGH DOSE OVER 65 FLUZONE HIGH DOSE OVER 65 Unknown Completed [facility] Prevnar 20 (PCV20) Prevnar 20 (PCV20) Unknown Completed [facility] Moderna COVID-19 Vaccine (Low Dose Booster) Moderna COVID-19 Vaccine (Low Dose Booster) Unknown Completed [facility] Pfizer COVID-19 Vaccine Pfizer COVID-19 Vaccine Unknown Completed [facility] FluAD FluAD Unknown Completed [facility] FLUZONE HIGH DOSE OVER 65 FLUZONE HIGH DOSE OVER 65 Unknown Completed [facility] Prevnar 20 (PCV20) Prevnar 20 (PCV20) Unknown Completed [facility] Moderna COVID-19 Vaccine (Low Dose Booster) Moderna COVID-19 Vaccine (Low Dose Booster) Unknown Completed [facility] Pfizer COVID-19 Vaccine Pfizer COVID-19 Vaccine Unknown Completed [facility] FluAD FluAD Unknown Completed [facility] FLUZONE HIGH DOSE OVER 65 FLUZONE HIGH DOSE OVER 65 Unknown Completed [facility] Prevnar 20 (PCV20) Prevnar 20 (PCV20) Unknown Completed [facility] Moderna COVID-19 Vaccine (Low Dose Booster) Moderna COVID-19 Vaccine (Low Dose Booster) Unknown Completed [facility] Pfizer COVID-19 Vaccine Pfizer COVID-19 Vaccine Unknown Completed [facility] FluAD FluAD Unknown Completed [facility] FLUZONE HIGH DOSE OVER 65 FLUZONE HIGH DOSE OVER 65 Unknown Completed [facility] Prevnar 20 (PCV20) Prevnar 20 (PCV20) Unknown Completed [facility] Moderna COVID-19 Vaccine (Low Dose Booster) Moderna COVID-19 Vaccine (Low Dose Booster) Unknown Completed [facility] Pfizer COVID-19 Vaccine Pfizer COVID-19 Vaccine Unknown Completed [facility] FluAD FluAD Unknown Completed [facility] FLUZONE HIGH DOSE OVER 65 FLUZONE HIGH DOSE OVER 65 Unknown Completed [facility] Prevnar 20 (PCV20) Prevnar 20 (PCV20) Unknown Completed [facility] MODERNA COVID-19 VACCINE (LOW DOSE BOOSTER) MODERNA COVID-19 VACCINE (LOW DOSE BOOSTER) Unknown Completed [facility] Pfizer COVID-19 Vaccine Pfizer COVID-19 Vaccine Unknown Completed [facility] FluAD FluAD Unknown Completed [facility] FLUZONE HIGH DOSE OVER 65 FLUZONE HIGH DOSE OVER 65 Unknown Completed [facility] Prevnar 20 (PCV20) Prevnar 20 (PCV20) Unknown Completed [facility] MODERNA COVID-19 VACCINE (LOW DOSE BOOSTER) MODERNA COVID-19 VACCINE (LOW DOSE BOOSTER) Unknown Completed [facility] Pfizer COVID-19 Vaccine Pfizer COVID-19 Vaccine Unknown Completed [facility] FluAD FluAD Unknown Completed [facility] FLUZONE HIGH DOSE OVER 65 FLUZONE HIGH DOSE OVER 65 Unknown Completed [facility] Prevnar 20 (PCV20) Prevnar 20 (PCV20) Unknown Completed [facility] MODERNA COVID-19 VACCINE (LOW DOSE BOOSTER) MODERNA COVID-19 VACCINE (LOW DOSE BOOSTER) Unknown Completed [facility] Pfizer COVID-19 Vaccine Pfizer COVID-19 Vaccine Unknown Completed [facility] FluAD FluAD Unknown Completed [facility] FLUZONE HIGH DOSE OVER 65 FLUZONE HIGH DOSE OVER 65 Unknown Completed [facility] Prevnar 20 (PCV20) Prevnar 20 (PCV20) Unknown Completed [facility] MODERNA COVID-19 VACCINE (LOW DOSE BOOSTER) MODERNA COVID-19 VACCINE (LOW DOSE BOOSTER) Unknown Completed [facility] Pfizer COVID-19 Vaccine Pfizer COVID-19 Vaccine Unknown Completed [facility] FluAD FluAD Unknown Completed [facility] FLUZONE HIGH DOSE OVER 65 FLUZONE HIGH DOSE OVER 65 Unknown Completed [facility] Prevnar 20 (PCV20) Prevnar 20 (PCV20) Unknown Completed [facility] MODERNA COVID-19 VACCINE (LOW DOSE BOOSTER) MODERNA COVID-19 VACCINE (LOW DOSE BOOSTER) Unknown Completed [facility] Pfizer COVID-19 Vaccine Pfizer COVID-19 Vaccine Unknown Completed [facility] FluAD FluAD Unknown Completed [facility] FLUZONE HIGH DOSE OVER 65 FLUZONE HIGH DOSE OVER 65 Unknown Completed [facility] Prevnar 20 (PCV20) Prevnar 20 (PCV20) Unknown Completed [facility] MODERNA COVID-19 VACCINE (LOW DOSE BOOSTER) MODERNA COVID-19 VACCINE (LOW DOSE BOOSTER) Unknown Completed [facility] Pfizer COVID-19 Vaccine Pfizer COVID-19 Vaccine Unknown Completed [facility] FluAD FluAD Unknown Completed [facility] FLUZONE HIGH DOSE OVER 65 FLUZONE HIGH DOSE OVER 65 Unknown Completed [facility] Prevnar 20 (PCV20) Prevnar 20 (PCV20) Unknown Completed [facility] MODERNA COVID-19 VACCINE (LOW DOSE BOOSTER) MODERNA COVID-19 VACCINE (LOW DOSE BOOSTER) Unknown Completed [facility] Pfizer COVID-19 Vaccine Pfizer COVID-19 Vaccine Unknown Completed [facility] FluAD FluAD Unknown Completed [facility] FLUZONE HIGH DOSE OVER 65 FLUZONE HIGH DOSE OVER 65 Unknown Completed [facility] Moderna COVID-19 Vaccine, Fall 2022, 12 years and up Moderna COVID-19 Vaccine, Fall 2022, 12 years and up Unknown Completed [facility] Prevnar 20 (PCV20) Prevnar 20 (PCV20) Unknown Completed [facility] Moderna COVID-19 Vaccine (Low Dose Booster) Moderna COVID-19 Vaccine (Low Dose Booster) Unknown Completed [facility] FluAD FluAD Unknown Completed [facility] Prevnar 20 (PCV20) Prevnar 20 (PCV20) Unknown Completed [facility] Moderna COVID-19 Vaccine (Low Dose Booster) Moderna COVID-19 Vaccine (Low Dose Booster) Unknown Completed [facility] FluAD FluAD Unknown Completed [facility] Prevnar 20 (PCV20) Prevnar 20 (PCV20) Unknown Completed [facility] Moderna COVID-19 Vaccine (Low Dose Booster) Moderna COVID-19 Vaccine (Low Dose Booster) Unknown Completed [facility] FluAD FluAD Unknown Completed [facility] Prevnar 20 (PCV20) Prevnar 20 (PCV20) Unknown Completed [facility] Moderna COVID-19 Vaccine (Low Dose Booster) Moderna COVID-19 Vaccine (Low Dose Booster) Unknown Completed [facility] Pfizer COVID-19 Vaccine Pfizer COVID-19 Vaccine Unknown Completed [facility] FluAD FluAD Unknown Completed [facility] FLUZONE HIGH DOSE OVER 65 FLUZONE HIGH DOSE OVER 65 Unknown Completed [facility] Prevnar 20 (PCV20) Prevnar 20 (PCV20) Unknown Completed [facility] Moderna COVID-19 Vaccine (Low Dose Booster) Moderna COVID-19 Vaccine (Low Dose Booster) Unknown Completed [facility] Pfizer COVID-19 Vaccine Pfizer COVID-19 Vaccine Unknown Completed [facility] FluAD FluAD Unknown Completed [facility] FLUZONE HIGH DOSE OVER 65 FLUZONE HIGH DOSE OVER 65 Unknown Completed [facility] Prevnar 20 (PCV20) Prevnar 20 (PCV20) Unknown Completed [facility] Moderna COVID-19 Vaccine (Low Dose Booster) Moderna COVID-19 Vaccine (Low Dose Booster) Unknown Completed [facility] Pfizer COVID-19 Vaccine Pfizer COVID-19 Vaccine Unknown Completed [facility] FluAD FluAD Unknown Completed [facility] FLUZONE HIGH DOSE OVER 65 FLUZONE HIGH DOSE OVER 65 Unknown Completed [facility] Prevnar 20 (PCV20) Prevnar 20 (PCV20) Unknown Completed [facility] Moderna COVID-19 Vaccine (Low Dose Booster) Moderna COVID-19 Vaccine (Low Dose Booster) Unknown Completed [facility] Pfizer COVID-19 Vaccine Pfizer COVID-19 Vaccine Unknown Completed [facility] FluAD FluAD Unknown Completed [facility] FLUZONE HIGH DOSE OVER 65 FLUZONE HIGH DOSE OVER 65 Unknown Completed [facility] Prevnar 20 (PCV20) Prevnar 20 (PCV20) Unknown Completed [facility] Moderna COVID-19 Vaccine (Low Dose Booster) Moderna COVID-19 Vaccine (Low Dose Booster) Unknown Completed [facility] Pfizer COVID-19 Vaccine Pfizer COVID-19 Vaccine Unknown Completed [facility] FluAD FluAD Unknown Completed [facility] FLUZONE HIGH DOSE OVER 65 FLUZONE HIGH DOSE OVER 65 Unknown Completed [facility] Vital Signs Vital Name Observation Time Observation Value Comments S ource Height 2024-11-08 00:00:00 63 [in_i] [facility] BP Systolic 2024-11-08 00:00:00 126 mm[Hg] [facility] BP Diastolic 2024-11-08 00:00:00 65 mm[Hg] [facility] BMI (Body Mass Index) 2024-11-08 00:00:00 36.1 kg/m2 [facility] Body Weight 2024-11-08 00:00:00 204 [lb_av] [facility] height 2024-10-05 14:40:00 64 [in_i] [facility] weight 2024-10-05 14:40:00 205.0 [lb_av] [facility] temperature 2024-10-05 14:40:00 97.9 [degF] [facility] bmi 2024-10-05 14:40:00 35.18 kg/m2 [facility] oximetry 2024-10-05 14:40:00 97 % [facility] respiratory rate 2024-10-05 14:40:00 15 /min [facility] blood pressure systolic 2024-10-05 14:40:00 128 mm[Hg] Common [facility] blood pressure diastolic 2024-10-05 14:40:00 62 mm[Hg] [facility] height 2024-06-22 15:00:00 64 [in_i] [facility] weight 2024-06-22 15:00:00 197 [lb_av] [facility] on [facility] bmi 2024-06-22 15:00:00 33.81 kg/m2 [facility] height 2024-06-22 14:40:00 64 [in_i] [facility] weight 2024-06-22 14:40:00 197 [lb_av] [facility] bmi 2024-06-22 14:40:00 33.81 kg/m2 [facility] on [facility] height 2024-02-10 10:00:00 64 [in_i] [facility] weight 2024-02-10 10:00:00 200 [lb_av] [facility] on [facility] temperature 2024-02-10 10:00:00 97.6 [degF] Com [facility] bmi 2024-02-10 10:00:00 34.33 kg/m2 [facility] on [facility] oximetry 2024-02-10 10:00:00 93 % [facility] respiratory rate 2024-02-10 10:00:00 16 /min [facility] blood pressure systolic 2024-02-10 10:00:00 126 mm[Hg] Common [facility] blood pressure diastolic 2024-02-10 10:00:00 74 mm[Hg] [facility] height 2024-02-07 14:15:00 64 [in_i] [facility] weight 2024-02-07 14:15:00 193 [lb_av] [facility] on [facility] temperature 2024-02-07 14:15:00 98.0 [degF] Com mon [facility] bmi 2024-02-07 14:15:00 33.12 kg/m2 [facility] blood pressure systolic 2024-02-07 14:15:00 124 mm[Hg] [facility] blood pressure diastolic 2024-02-07 14:15:00 84 mm[Hg] [facility] height 2024-02-03 09:40:00 64 [in_i] [facility] weight 2024-02-03 09:40:00 197 [lb_av] Comm on [facility] temperature 2024-02-03 09:40:00 97.2 [degF] Com [facility] bmi 2024-02-03 09:40:00 33.81 kg/m2 Comm on [facility] oximetry 2024-02-03 09:40:00 94 % [facility] respiratory rate 2024-02-03 09:40:00 16 /min [facility] blood pressure systolic 2024-02-03 09:40:00 124 mm[Hg] [facility] blood pressure diastolic 2024-02-03 09:40:00 84 mm[Hg] [facility] height 2024-01-24 09:00:00 64 [in_i] [facility] weight 2024-01-24 09:00:00 188 [lb_av] Comm on [facility] temperature 2024-01-24 09:00:00 98.0 [degF] Com [facility] bmi 2024-01-24 09:00:00 32.27 kg/m2 Comm on [facility] blood pressure systolic 2024-01-24 09:00:00 126 mm[Hg] [facility] blood pressure diastolic 2024-01-24 09:00:00 78 mm[Hg] [facility] height 2024-01-11 14:20:00 64 [in_i] [facility] weight 2024-01-11 14:20:00 188 [lb_av] Comm on [facility] bmi 2024-01-11 14:20:00 32.27 kg/m2 Comm on [facility] height 2024-01-11 09:00:00 64 [in_i] [facility] weight 2024-01-11 09:00:00 194 [lb_av] Comm on [facility] temperature 2024-01-11 09:00:00 97.9 [degF] Com [facility] bmi 2024-01-11 09:00:00 33.3 kg/m2 [facility] blood pressure systolic 2024-01-11 09:00:00 126 mm[Hg] [facility] blood pressure diastolic 2024-01-11 09:00:00 76 mm[Hg] [facility] height 2023-10-28 14:30:00 64 [in_i] [facility] weight 2023-10-28 14:30:00 194 [lb_av] Comm on [facility] temperature 2023-10-28 14:30:00 98.0 [degF] Com [facility] bmi 2023-10-28 14:30:00 33.3 kg/m2 [facility] blood pressure systolic 2023-10-28 14:30:00 136 mm[Hg] [facility] blood pressure diastolic 2023-10-28 14:30:00 78 mm[Hg] [facility] height 2023-10-13 15:20:00 64 [in_i] [facility] weight 2023-10-13 15:20:00 187 [lb_av] Comm on [facility] bmi 2023-10-13 15:20:00 32.09 kg/m2 Comm on [facility] height 2023-07-12 11:00:00 64 [in_i] [facility] weight 2023-07-12 11:00:00 187 [lb_av] Comm on [facility] temperature 2023-07-12 11:00:00 97.1 [degF] Com mon [facility] bmi 2023-07-12 11:00:00 32.09 kg/m2 Comm on [facility] oximetry 2023-07-12 11:00:00 94 % [facility] respiratory rate 2023-07-12 11:00:00 16 /min [facility] blood pressure systolic 2023-07-12 11:00:00 132 mm[Hg] [facility] blood pressure diastolic 2023-07-12 11:00:00 68 mm[Hg] Common [facility] height 2023-04-28 10:00:00 64 [in_i] [facility] weight 2023-04-28 10:00:00 185 [lb_av] Comm on [facility] bmi 2023-04-28 10:00:00 31.75 kg/m2 Comm on [facility] height 2023-03-17 09:00:00 64 [in_i] [facility] weight 2023-03-17 09:00:00 178 [lb_av] Comm on [facility] bmi 2023-03-17 09:00:00 30.55 kg/m2 Comm on [facility] height 2023-02-10 13:20:00 64 [in_i] [facility] weight 2023-02-10 13:20:00 179 [lb_av] Comm on [facility] temperature 2023-02-10 13:20:00 97.2 [degF] Com [facility] bmi 2023-02-10 13:20:00 30.72 kg/m2 Comm on [facility] oximetry 2023-02-10 13:20:00 97 % [facility] respiratory rate 2023-02-10 13:20:00 16 /min [facility] blood pressure systolic 2023-02-10 13:20:00 136 mm[Hg] [facility] blood pressure diastolic 2023-02-10 13:20:00 64 mm[Hg] [facility] height 2022-12-03 10:00:00 64 [in_i] [facility] weight 2022-12-03 10:00:00 187.6 [lb_av] [facility] temperature 2022-12-03 10:00:00 97.2 [degF] Com mon [facility] bmi 2022-12-03 10:00:00 32.2 kg/m2 [facility] oximetry 2022-12-03 10:00:00 98 % [facility] respiratory rate 2022-12-03 10:00:00 16 /min [facility] blood pressure systolic 2022-12-03 10:00:00 139 mm[Hg] [facility] blood pressure diastolic 2022-12-03 10:00:00 67 mm[Hg] [facility] height 2022-11-19 10:45:00 64 [in_i] [facility] weight 2022-11-19 10:45:00 190 [lb_av] Comm on [facility] temperature 2022-11-19 10:45:00 98.0 [degF] Com [facility] bmi 2022-11-19 10:45:00 32.61 kg/m2 Comm on [facility] blood pressure systolic 2022-11-19 10:45:00 132 mm[Hg] [facility] blood pressure diastolic 2022-11-19 10:45:00 78 mm[Hg] [facility] height 2022-11-05 10:30:00 64 [in_i] [facility] weight 2022-11-05 10:30:00 191 [lb_av] Comm on [facility] temperature 2022-11-05 10:30:00 96.8 [degF] Com [facility] bmi 2022-11-05 10:30:00 32.78 kg/m2 Comm on [facility] blood pressure systolic 2022-11-05 10:30:00 130 mm[Hg] [facility] blood pressure diastolic 2022-11-05 10:30:00 72 mm[Hg] [facility] height 2022-10-22 10:00:00 64 [in_i] [facility] weight 2022-10-22 10:00:00 190 [lb_av] Comm on [facility] temperature 2022-10-22 10:00:00 98.2 [degF] Com [facility] bmi 2022-10-22 10:00:00 32.61 kg/m2 Comm on [facility] blood pressure systolic 2022-10-22 10:00:00 136 mm[Hg] [facility] blood pressure diastolic 2022-10-22 10:00:00 78 mm[Hg] [facility] height 2022-10-20 09:40:00 64 [in_i] [facility] weight 2022-10-20 09:40:00 190 [lb_av] Comm on [facility] temperature 2022-10-20 09:40:00 97.9 [degF] Com mon [facility] bmi 2022-10-20 09:40:00 32.61 kg/m2 Comm on [facility] oximetry 2022-10-20 09:40:00 93 % [facility] respiratory rate 2022-10-20 09:40:00 16 /min [facility] blood pressure systolic 2022-10-20 09:40:00 132 mm[Hg] [facility] blood pressure diastolic 2022-10-20 09:40:00 78 mm[Hg] [facility] height 2022-10-08 10:00:00 64 [in_i] [facility] weight 2022-10-08 10:00:00 181 [lb_av] Comm on [facility] temperature 2022-10-08 10:00:00 98.0 [degF] Com [facility] bmi 2022-10-08 10:00:00 31.07 kg/m2 Comm on [facility] blood pressure systolic 2022-10-08 10:00:00 134 mm[Hg] [facility] blood pressure diastolic 2022-10-08 10:00:00 84 mm[Hg] Common [facility] height 2022-09-30 15:30:00 64 [in_i] [facility] weight 2022-09-30 15:30:00 180 [lb_av] Comm on [facility] temperature 2022-09-30 15:30:00 98.1 [degF] Com [facility] bmi 2022-09-30 15:30:00 30.89 kg/m2 Comm on [facility] blood pressure systolic 2022-09-30 15:30:00 130 mm[Hg] [facility] blood pressure diastolic 2022-09-30 15:30:00 80 mm[Hg] [facility] height 2022-09-23 09:30:00 64 [in_i] [facility]mo n [facility] weight 2022-09-23 09:30:00 181 [lb_av] Comm on [facility] temperature 2022-09-23 09:30:00 98.0 [degF] Com mon [facility] bmi 2022-09-23 09:30:00 31.07 kg/m2 [facility] blood pressure systolic 2022-09-23 09:30:00 133 mm[Hg] Common [facility] blood pressure diastolic 2022-09-23 09:30:00 74 mm[Hg] Common [facility] blood pressure systolic 2022-09-03 08:15:00 130 mm[Hg] Common [facility] blood pressure diastolic 2022-09-03 08:15:00 62 mm[Hg] Common [facility] height 2022-09-03 08:15:00 64 [in_i] [facility] weight 2022-09-03 08:15:00 180 [lb_av] [facility] temperature 2022-09-03 08:15:00 97.9 [degF] Com [facility] bmi 2022-09-03 08:15:00 30.89 kg/m2 [facility] height 2022-08-03 14:30:00 64 [in_i] [facility] weight 2022-08-03 14:30:00 180 [lb_av] [facility] temperature 2022-08-03 14:30:00 97.2 [degF] Com [facility] bmi 2022-08-03 14:30:00 30.89 kg/m2 Comm [facility] blood pressure systolic 2022-08-03 14:30:00 131 mm[Hg] Common [facility] blood pressure diastolic 2022-08-03 14:30:00 84 mm[Hg] [facility] height 2022-07-28 10:30:00 64 [in_i] [facility] weight 2022-07-28 10:30:00 179 [lb_av] Comm on [facility] bmi 2022-07-28 10:30:00 30.72 kg/m2 [facility] blood pressure systolic 2022-07-28 10:30:00 134 mm[Hg] [facility] blood pressure diastolic 2022-07-28 10:30:00 82 mm[Hg] Common [facility] height 2022-07-21 10:00:00 64 [in_i] [facility] weight 2022-07-21 10:00:00 190 [lb_av] [facility] temperature 2022-07-21 10:00:00 97.7 [degF] Com [facility] bmi 2022-07-21 10:00:00 32.61 kg/m2 [facility] oximetry 2022-07-21 10:00:00 93 % [facility] respiratory rate 2022-07-21 10:00:00 17 /min [facility] blood pressure systolic 2022-07-21 10:00:00 134 mm[Hg] Common [facility] blood pressure diastolic 2022-07-21 10:00:00 70 mm[Hg] Common [facility] height 2022-07-21 10:00:00 64 [in_i] [facility] n [facility] weight 2022-07-21 10:00:00 190 [lb_av] [facility] temperature 2022-07-21 10:00:00 97.7 [degF] Com [facility] bmi 2022-07-21 10:00:00 32.61 kg/m2 [facility] oximetry 2022-07-21 10:00:00 93 % [facility] respiratory rate 2022-07-21 10:00:00 17 /min [facility] blood pressure systolic 2022-07-21 10:00:00 134 mm[Hg] Common [facility] blood pressure diastolic 2022-07-21 10:00:00 70 mm[Hg] [facility] height 2022-07-07 10:40:00 64 [in_i] [facility] n [facility] weight 2022-07-07 10:40:00 193 [lb_av] [facility] temperature 2022-07-07 10:40:00 97.8 [degF] Com mon [facility] bmi 2022-07-07 10:40:00 33.12 kg/m2 [facility] oximetry 2022-07-07 10:40:00 97 % [facility] respiratory rate 2022-07-07 10:40:00 17 /min [facility] blood pressure systolic 2022-07-07 10:40:00 136 mm[Hg] Common [facility] blood pressure diastolic 2022-07-07 10:40:00 82 mm[Hg] Common [facility] height 2022-04-21 10:20:00 64 [in_i] [facility] weight 2022-04-21 10:20:00 206.0 [lb_av] Co mmon [facility] temperature 2022-04-21 10:20:00 97.2 [degF] Com mon [facility] bmi 2022-04-21 10:20:00 35.36 kg/m2 [facility] oximetry 2022-04-21 10:20:00 99 % [facility] respiratory rate 2022-04-21 10:20:00 17 /min [facility] blood pressure systolic 2022-04-21 10:20:00 118 mm[Hg] Common [facility] blood pressure diastolic 2022-04-21 10:20:00 65 mm[Hg] [facility] height 2022-04-13 08:30:00 64 [in_i] [facility]mo n [facility] weight 2022-04-13 08:30:00 208 [lb_av] [facility] temperature 2022-04-13 08:30:00 97.6 [degF] Com mon [facility] bmi 2022-04-13 08:30:00 35.7 kg/m2 [facility] blood pressure systolic 2022-04-13 08:30:00 134 mm[Hg] [facility] blood pressure diastolic 2022-04-13 08:30:00 80 mm[Hg] Common [facility] height 2022-01-15 13:40:00 65 [in_i] [facility] weight 2022-01-15 13:40:00 212.4 [lb_av] Co mmon [facility] temperature 2022-01-15 13:40:00 97.2 [degF] Com mon [facility] bmi 2022-01-15 13:40:00 35.34 kg/m2 [facility] oximetry 2022-01-15 13:40:00 98 % [facility] respiratory rate 2022-01-15 13:40:00 15 /min [facility] blood pressure systolic 2022-01-15 13:40:00 119 mm[Hg] [facility] blood pressure diastolic 2022-01-15 13:40:00 58 mm[Hg] [facility] height 2021-11-20 14:30:00 65 [in_i] [facility] weight 2021-11-20 14:30:00 217 [lb_av] Comm on [facility] temperature 2021-11-20 14:30:00 97.9 [degF] Com [facility] bmi 2021-11-20 14:30:00 36.11 kg/m2 Comm [facility] blood pressure systolic 2021-11-20 14:30:00 122 mm[Hg] Common [facility] blood pressure diastolic 2021-11-20 14:30:00 80 mm[Hg] [facility] height 2021-09-18 09:40:00 65 [in_i] [facility] weight 2021-09-18 09:40:00 222.6 [lb_av] Co [facility] temperature 2021-09-18 09:40:00 97.2 [degF] Com [facility] bmi 2021-09-18 09:40:00 37.04 kg/m2 [facility] oximetry 2021-09-18 09:40:00 99 % [facility] respiratory rate 2021-09-18 09:40:00 16 /min [facility] blood pressure systolic 2021-09-18 09:40:00 135 mm[Hg] [facility] blood pressure diastolic 2021-09-18 09:40:00 67 mm[Hg] Common [facility] height 2021-09-18 09:20:00 65 [in_i] [facility] weight 2021-09-18 09:20:00 222.6 [lb_av] Co [facility] temperature 2021-09-18 09:20:00 97.2 [degF] Com [facility] bmi 2021-09-18 09:20:00 37.04 kg/m2 [facility] oximetry 2021-09-18 09:20:00 99 % [facility] respiratory rate 2021-09-18 09:20:00 16 /min Common [facility] blood pressure systolic 2021-09-18 09:20:00 135 mm[Hg] Common [facility] blood pressure diastolic 2021-09-18 09:20:00 67 mm[Hg] [facility] height 2021-07-18 11:20:00 65 [in_i] [facility] weight 2021-07-18 11:20:00 235 [lb_av] Comm [facility] bmi 2021-07-18 11:20:00 39.1 kg/m2 [facility] height 2021-06-12 10:30:00 65 [in_i] Commo n [facility] weight 2021-06-12 10:30:00 235 [lb_av] [facility] temperature 2021-06-12 10:30:00 97.9 [degF] Com [facility] bmi 2021-06-12 10:30:00 39.1 kg/m2 [facility] blood pressure systolic 2021-06-12 10:30:00 118 mm[Hg] [facility] blood pressure diastolic 2021-06-12 10:30:00 74 mm[Hg] Common [facility] height 2021-05-29 11:15:00 65 [in_i] [facility]mo n [facility] weight 2021-05-29 11:15:00 238 [lb_av] [facility] temperature 2021-05-29 11:15:00 97.2 [degF] Com [facility] bmi 2021-05-29 11:15:00 39.6 kg/m2 [facility] blood pressure systolic 2021-05-29 11:15:00 124 mm[Hg] Common [facility] blood pressure diastolic 2021-05-29 11:15:00 84 mm[Hg] [facility] height 2021-04-22 11:00:00 65 [in_i] [facility] weight 2021-04-22 11:00:00 238 [lb_av] [facility] temperature 2021-04-22 11:00:00 97.9 [degF] Com mon [facility] bmi 2021-04-22 11:00:00 39.6 kg/m2 [facility] blood pressure systolic 2021-04-22 11:00:00 128 mm[Hg] [facility] blood pressure diastolic 2021-04-22 11:00:00 74 mm[Hg] Common [facility] height 2021-04-17 11:20:00 65 [in_i] [facility] weight 2021-04-17 11:20:00 239 [lb_av] [facility] bmi 2021-04-17 11:20:00 39.77 kg/m2 [facility] height 2021-02-13 14:30:00 65 [in_i] [facility] weight 2021-02-13 14:30:00 238 [lb_av] [facility] bmi 2021-02-13 14:30:00 39.6 kg/m2 [facility] blood pressure systolic 2021-02-13 14:30:00 126 mm[Hg] [facility] blood pressure diastolic 2021-02-13 14:30:00 77 mm[Hg] [facility] weight 2021-01-16 11:20:00 237 [lb_av] [facility] temperature 2021-01-16 11:20:00 97.2 [degF] Com mon [facility] bmi 2021-01-16 11:20:00 39.43 kg/m2 [facility] oximetry 2021-01-16 11:20:00 100 % [facility] respiratory rate 2021-01-16 11:20:00 19 /min [facility] blood pressure systolic 2021-01-16 11:20:00 135 mm[Hg] [facility] blood pressure diastolic 2021-01-16 11:20:00 63 mm[Hg] [facility] height 2021-01-16 11:20:00 65 [in_i] [facility] Heart Rate 2018-05-30 17:00:00 [facility] Diastolic (mm Hg) 2018-05-30 17:00:00 [facility] Systolic (mm Hg) 2018-05-30 17:00:00 [facility] Height 2018-05-30 17:00:00 [facility] Weight 2018-05-30 17:00:00 [facility] Temperature Oral (F) 2018-05-30 17:00:00 97 F [facility] Heart Rate 2018-05-16 16:15:00 [facility] Diastolic (mm Hg) 2018-05-16 16:15:00 [facility] Systolic (mm Hg) 2018-05-16 16:15:00 [facility] Height 2018-05-16 16:15:00 [facility] Weight 2018-05-16 16:15:00 [facility] Temperature Oral (F) 2018-05-16 16:15:00 97.9 F [facility] Procedures Procedure Date / Time Performed Performing Clinicia n Source [id number] 2023-03-08 00:00:00 CHAAB.01 [facility] [id number] 2023-03-08 00:00:00 CHAAB.01 [facility] [id number] 2023-03-08 00:00:00 CHAAB.01 [facility] [id number] 2023-01-28 00:00:00 PUSTE [facility] [id number] 2023-01-28 00:00:[address] [facility] [id number] 2023-01-28 00:00:[address] [facility] [id number] 2023-01-28 [facility] [id number] 2023-01-28 00:00:00 [facility] Hy[facility] Encounters Start Date/Time End Date/Time Encounter Type Admission Type Attending Clinicians Care Facility Care Department Encounter ID Source 2023-11-01 11:59:00 Outpatient DavisKianna STLMLC STL[facility] [id number] [facility] 2023-10-11 09:27:00 Outpatient DavisMeiri STLMLC STLML[facility] [id number] [facility] 2023-02-09 13:48:00 Outpatient DavisMeiri STLMLC STL[facility] [id number] [facility] 2022-12-02 13:49:00 Outpatient DavisMeiri STLMLC STL[facility]C [id number] [facility] 2022-10-26 10:04:00 Outpatient DavisMeiri STLMLC STLMLC [id number] [facility] 2022-10-19 13:02:00 Outpatient DavisKianna STLMLC STL[facility]C [id number] [facility] 2022-10-16 09:24:00 Outpatient Davis Kianna STLMLC STL[facility] [id number] [facility] 2022-08-10 08:20:00 Outpatient Davis Kianna STLMLC STL[facility] [id number] [facility] 2022-07-30 08:34:00 Outpatient Davis, Kianna STLMLC STLMLC [id number] [facility] 2022-05-04 16:37:01 Outpatient Kianna Davis STLMLC STLMLC [id number] [facility] 2022-04-21 13:53:01 Outpatient DavisKianna STLMLC STLMLC [id number] [facility] 2022-04-20 14:18:01 Outpatient SALCEDO, Na STLMLC STLMLC [id number] [facility] 2022-04-13 09:12:01 Outpatient SALCEDO, Na STLMLC STLMLC [id number] [facility] 2022-01-13 14:21:01 Outpatient Salcedo, Na STLMLC STLMLC [id number] [facility] 2021-11-21 08:34:02 Outpatient Salcedo, Na STLMLC ST[facility]C [id number] [facility] 2021-09-16 15:50:01 Outpatient Salcedo, Na STLMLC STLMLC [id number] [facility] 2021-07-16 11:34:01 Outpatient Salcedo, Na STLMLC STLMLC [id number] [facility] 2021-06-18 16:29:01 Outpatient Salcedo, Na STLMLC STLMLC [id number] [facility] 2021-06-11 13:16:00 Outpatient Salcedo, Na STLMLC STLMLC [id number] [facility] 2021-05-29 08:22:01 Outpatient Salcedo, Na STLMLC STLMLC [id number] [facility] 2021 14:15:24 Outpatient Salcedo, Na STLMLC STLMLC [id number] [facility] 2021 14:04:04 Outpatient Salcedo, Na STLMLC STLMLC [id number] [facility] 2021 14:02:07 Outpatient Tiffanie Salcedo STDAYRONLC STLMLC [id number] [facility] 2021 13:27:40 Outpatient Tiffanie Salcedo STELSIE STLMLC [id number] [facility] 2021 12:52:24 Outpatient Tiffanie Salcedo STLMLC STLMLC [id number] [facility] 2021 12:39:46 Outpatient Tiffanie Salcedo STLMLC STLMLC [id number] [facility] 2021 12:31:17 Outpatient Tiffanie Salcedo STDAYRONLC STLMLC [id number] [facility] 2021 12:05:49 Outpatient Tiffanie Salcedo STDAYRONLC STLMLC [id number] [facility] 2021 11:45:47 Outpatient Tiffanie Salcedo STDAYRONLC STLMLC [id number] [facility] 2019-02-25 08:00:00 Inpatient Deanna YAO [facility] [id number] [facility] 2024-11-08 00:00:00 2024-11-08 00:00:00 Janessa Paris MD: [address] [place] [address] S, [place] [address], [place] [address] , Ph. [email or web address]* [id number] [facility] 2024-10-27 00:00:00 2024-10-27 00:00:00 (TEL) STLMLC STLMLC [id number] [facility] 2024-10-16 00:00:00 2024-10-16 00:00:00 (TEL) STLMLC STLMLC [id number] [facility] 2024-10-12 00:00:00 2024-10-12 00:00:00 (TEL) STLMLC STLMLC [id number] [facility] 2024-10-05 00:00:00 2024-10-05 00:00:00 OFFICE VISIT ESTAB PT LEVEL 4 STLMLC STLMLC [id number] [facility] 2024-09-22 00:00:00 2024-09-22 00:00:00 (TEL) STLMLC STLMLC [id number] [facility] 2024-09-07 00:00:00 2024-09-07 00:00:00 (TEL) STLMLC STLMLC [id number] [facility] 2024-06-22 00:00:00 2024-06-22 00:00:00 SUB ANNUAL [facility] VISIT STL[facility] STLMLC [id number] [facility] 2024-06-22 00:00:00 2024-06-22 00:00:00 OFFICE VISIT ESTAB PT LEVEL 4 STL[facility]C STLMLC [id number] [facility] 2024-03-09 00:00:00 2024-03-09 00:00:00 (TEL) STLMLC STLMLC [id number] [facility] 2024-02-28 00:00:00 2024-02-28 00:00:00 (TEL) STLMLC STLMLC [id number] [facility] 2024-02-10 00:00:00 2024-02-10 00:00:00 OFFICE VISIT ESTAB PT LEVEL 3 [facility]C STLMLC [id number] [facility] 2024-02-07 00:00:00 2024-02-07 00:00:00 NON-BILLAB LE VISIT STLMLC STLMLC [id number] [facility] 2024-02-03 00:00:00 2024-02-03 00:00:00 (TEL) STLMLC STLMLC [id number] [facility] 2024-02-03 00:00:00 2024-02-03 00:00:00 OFFICE VISIT ESTAB PT LEVEL 4 [facility]C STLMLC [id number] [facility] 2024-01-24 00:00:00 2024-01-24 00:00:00 NON-BILLAB LE VISIT STLMLC STLMLC [id number] [facility] 2024-01-13 00:00:00 2024-01-13 00:00:00 (TEL) STLMLC STLMLC [id number] [facility] 2024-01-11 00:00:00 2024-01-11 00:00:00 OFFICE VISIT ESTAB PT LEVEL 4 [facility]C STLMLC [id number] [facility] 2024-01-11 00:00:00 2024-01-11 00:00:00 OFFICE VISIT ESTAB PT LEVEL 4 [facility]C STLMLC [id number] [facility] 2023-12-23 00:00:00 2023-12-23 00:00:00 (TEL) STLMLC STLMLC [id number] [facility] 2023-12-06 00:00:00 2023-12-06 00:00:00 (TEL) STLMLC STLMLC [id number] [facility] 2023-11-03 00:00:00 2023-11-03 00:00:00 (TEL) STLMLC STLMLC [id number] [facility] 2023-10-28 00:00:00 2023-10-28 00:00:00 OFFICE VISIT ESTAB PT LEVEL 4 [facility] STLMLC [id number] [facility] 2023-10-17 00:00:00 2023-10-17 00:00:00 (TEL) STLMLC STLMLC [id number] [facility] 2023-10-13 00:00:00 2023-10-13 00:00:00 OFFICE VISIT ESTAB PT LEVEL 4 [facility]C STLMLC [id number] [facility] 2023-09-22 00:00:00 2023-09-22 00:00:00 (TEL) STLMLC STLMLC [id number] [facility] 2023-09-14 00:00:00 2023-09-14 00:00:00 (TEL) STLMLC STLMLC [id number] [facility] 2023-08-30 00:00:00 2023-08-30 00:00:00 (TEL) STLMLC STLMLC [id number] [facility] 2023-07-12 00:00:00 2023-07-12 00:00:00 OFFICE VISIT ESTAB PT LEVEL 4 [facility]C STL[facility]C [id number] [facility] 2023-05-12 00:00:00 2023-05-12 00:00:00 (TEL) STLMLC STLMLC [id number] [facility] 2023-05-06 00:00:00 2023-05-06 00:00:00 (TEL) STLMLC STLMLC [id number] [facility] 2023-05-03 00:00:00 2023-05-03 00:00:00 (TEL) STLMLC STLMLC [id number] [facility] 2023-04-28 00:00:00 2023-04-28 00:00:00 OFFICE VISIT ESTAB PT LEVEL 3 STLMLC STLMLC [id number] [facility] 2023-04-28 00:00:00 2023-04-28 00:00:00 (TEL) STLMLC STLMLC [id number] [facility] 2023-04-27 00:00:00 2023-04-27 00:00:00 (TEL) STLMLC STLMLC [id number] [facility] 2023-03-17 00:00:00 2023-03-17 00:00:00 (EST. VIDEO) EST VIRTUAL VIDEO VISIT STLMLC STLMLC [id number] [facility] 2023-03-15 00:00:00 2023-03-15 00:00:00 (TEL) STLMLC STLMLC [id number] [facility] 2023-03-08 05:33:00 2023-03-13 18:42:00 Inpatient Svitlana Dalal [facility] INTE [id number] [facility] 2023-03-04 09:00:00 2023-03-04 23:00:00 Outpatient Svitlana Dalal [facility] 3DAY [id number] [facility] 2023-02-10 00:00:00 2023-02-10 00:00:00 OFFICE VISIT ESTAB PT LEVEL 4 STLMLC STLMLC [id number] [facility] 2023-01-28 05:05:00 2023-01-29 19:56:00 Inpatient Josi Lock [facility] INTE [id number] [facility] 2023-01-27 00:00:00 2023-01-27 00:00:00 (TEL) STLMLC STLMLC [id number] [facility] 2023-01-19 16:43:00 2023-01-22 17:03:00 Inpatient Stef Garza [facility] INTE.02 [id number] [facility] 2023-01-20 00:00:00 2023-01-20 00:00:00 (TEL) STLMLC STLMLC [id number] [facility] 2023-01-01 00:00:00 2023-01-01 00:00:00 (TEL) STLMLC STLMLC [id number] [facility] 2022-12-17 00:00:00 2022-12-17 00:00:00 (TEL) STLMLC STLMLC [id number] [facility] 2022-12-15 00:00:00 2022-12-15 00:00:00 (TEL) STLMLC STLMLC [id number] [facility] 2022-12-03 00:00:00 2022-12-03 00:00:00 OFFICE VISIT ESTAB PT LEVEL 4 [facility]C STLMLC [id number] [facility] 2022-11-19 00:00:00 2022-11-19 00:00:00 NON-BILLAB LE VISIT STLMLC STLMLC [id number] [facility] 2022-11-05 00:00:00 2022-11-05 00:00:00 NON-BILLAB LE VISIT STLMLC STLMLC [id number] [facility] 2022-10-30 00:00:00 2022-10-30 00:00:00 (TEL) STLMLC STLMLC [id number] [facility] 2022-10-22 00:00:00 2022-10-22 00:00:00 NON-BILLAB LE VISIT STLMLC STLMLC [id number] [facility] 2022-10-20 00:00:00 2022-10-20 00:00:00 OFFICE VISIT ESTAB PT LEVEL 5 [facility]C STLMLC [id number] [facility] 2022-10-08 00:00:00 2022-10-08 00:00:00 (TEL) STLMLC STLMLC [id number] [facility] 2022-10-08 00:00:00 2022-10-08 00:00:00 NON-BILLAB LE VISIT STLMLC STLMLC [id number] [facility] 2022-09-30 00:00:00 2022-09-30 00:00:00 NON-BILLAB LE VISIT STLMLC STLMLC [id number] [facility] 2022-09-24 00:00:00 2022-09-24 00:00:00 (TEL) STLMLC STLMLC [id number] [facility] 2022-09-23 00:00:00 2022-09-23 00:00:00 NON-BILLAB LE VISIT STLMLC STLMLC [id number] [facility] 2022-09-11 00:00:00 2022-09-11 00:00:00 (TEL) STLMLC STLMLC [id number] [facility] 2022-09-07 00:00:00 2022-09-07 00:00:00 (TEL) STLMLC STLMLC [id number] [facility] 2022-09-03 00:00:00 2022-09-03 00:00:00 (TEL) STLMLC STLMLC [id number] [facility] 2022-09-03 00:00:00 2022-09-03 00:00:00 OFFICE VISIT ESTAB PT LEVEL 3 [facility] STLMLC [id number] [facility] 2022-09-03 00:00:00 2022-09-03 00:00:00 (TEL) STLMLC STLMLC [id number] [facility] 2022-08-04 00:00:00 2022-08-04 00:00:00 (TEL) STLMLC STLMLC [id number] [facility] 2022-08-03 00:00:00 2022-08-03 00:00:00 (TEL) STLMLC STLMLC [id number] [facility] 2022-08-03 00:00:00 2022-08-03 00:00:00 OFFICE VISIT ESTAB PT LEVEL 3 [facility] STLMLC [id number] [facility] 2022-07-28 00:00:00 2022-07-28 00:00:00 OFFICE VISIT ESTAB PT LEVEL 4 STLMLC STLMLC [id number] [facility] 2022-07-21 00:00:00 2022-07-21 00:00:00 OFFICE VISIT ESTAB PT LEVEL 4 STLMLC STLMLC [id number] [facility] 2022-07-21 00:00:00 2022-07-21 00:00:00 SUB ANNUAL [facility] VISIT STLMLC STLMLC [id number] [facility] 2022-07-13 00:00:00 2022-07-13 00:00:00 (TEL) STLMLC STLMLC [id number] [facility] 2022-07-07 00:00:00 2022-07-07 00:00:00 OFFICE VISIT ESTAB PT LEVEL 4 STLMLC STLMLC [id number] [facility] 2022-06-24 00:00:00 2022-06-24 00:00:00 (TEL) STLMLC STLMLC [id number] [facility] 2022-06-19 00:00:00 2022-06-19 00:00:00 (TEL) STLMLC STLMLC [id number] [facility] 2022-04-21 00:00:00 2022-04-21 00:00:00 OFFICE VISIT ESTAB PT LEVEL 4 STLMLC STLMLC [id number] [facility] 2022-04-21 00:00:00 2022-04-21 00:00:00 (TEL) STLMLC STLMLC [id number] [facility] 2022-04-21 00:00:00 2022-04-21 00:00:00 (TEL) STLMLC STLMLC [id number] [facility] 2022-04-16 00:00:00 2022-04-16 00:00:00 (TEL) STLMLC STLMLC [id number] [facility] 2022-04-16 00:00:00 2022-04-16 00:00:00 (TEL) STLMLC STLMLC [id number] [facility] 2022-04-13 00:00:00 2022-04-13 00:00:00 OFFICE VISIT ESTAB PT LEVEL 4 STL[facility]C STLMLC [id number] [facility] 2022-02-26 00:00:00 2022-02-26 00:00:00 (TEL) STLMLC STLMLC [id number] [facility] 2022-01-15 00:00:00 2022-01-15 00:00:00 OFFICE VISIT ESTAB PT LEVEL 4 STLMLC STLMLC [id number] [facility] 2021-12-17 00:00:00 2021-12-17 00:00:00 (TEL) STLMLC STLMLC [id number] [facility] 2021-11-20 00:00:00 2021-11-20 00:00:00 OFFICE VISIT ESTAB PT LEVEL 4 STLMLC STLMLC [id number] [facility] 2021-09-26 00:00:00 2021-09-26 00:00:00 (TEL) STLMLC STLMLC [id number] [facility] 2021-09-18 00:00:00 2021-09-18 00:00:00 SUB ANNUAL [facility] VISIT STLMLC STLMLC [id number] [facility] 2021-09-18 00:00:00 2021-09-18 00:00:00 OFFICE VISIT ESTAB PT LEVEL 3 STLMLC STLMLC [id number] [facility] 2021-07-18 00:00:00 2021-07-18 00:00:00 OL DIG E/M SVC 21+ MIN STLMLC STLMLC [id number] [facility] 2021-06-12 00:00:00 2021-06-12 00:00:00 NON-BILLAB LE VISIT STLMLC STLMLC [id number] [facility] 2021-06-10 00:00:00 2021-06-10 00:00:00 (TEL) STLMLC STLMLC [id number] [facility] 2021-05-29 00:00:00 2021-05-29 00:00:00 NON-BILLAB LE VISIT STLMLC STLMLC [id number] [facility] 2021-05-22 00:00:00 2021-05-22 00:00:00 (TEL) STLMLC STLMLC [id number] [facility] 2021-04-25 00:00:00 2021-04-25 00:00:00 (TEL) STLMLC STLMLC [id number] [facility] 2021 00:00:00 2021 00:00:00 (TEL) STLMLC STLMLC [id number] [facility] 2021-04-22 00:00:00 2021-04-22 00:00:00 OFFICE VISIT ESTAB PT LEVEL 4 STLMLC STLMLC [id number] [facility] 2021-04-17 00:00:00 2021-04-17 00:00:00 OL DIG E/M SVC 21+ MIN STLMLC STLMLC [id number] [facility] 2021-04-07 00:00:00 2021-04-07 00:00:00 (TEL) STLMLC STLMLC [id number] [facility] 2021-04-03 00:00:00 2021-04-03 00:00:00 (TEL) STLMLC STLMLC [id number] [facility] 2021-02-24 00:00:00 2021-02-24 00:00:00 (TEL) STLMLC STLMLC [id number] [facility] 2021-02-13 00:00:00 2021-02-13 00:00:00 OFFICE VISIT NEW PT LEVEL 4 STLMLC STLMLC [id number] [facility] 2021-01-16 00:00:00 2021-01-16 00:00:00 OFFICE VISIT ESTAB PT LEVEL 4 STLMLC STLMLC [id number] [facility] 2021-01-09 00:00:00 2021-01-09 00:00:00 (TEL) STLMLC STLMLC [id number] [facility] 2020-10-15 00:00:00 2020-10-15 00:00:00 Outpatient STLMLC STLMLC [id number] [facility] 2020-08-15 00:00:00 2020-08-15 00:00:00 Outpatient STLMLC STLMLC [id number] [facility] 2020-08-02 00:00:00 2020-08-02 00:00:00 Outpatient STLMLC STLMLC [id number] [facility] 2020-07-12 00:00:00 2020-07-12 00:00:00 Outpatient STLMLC STLMLC [id number] [facility] 2020-06-10 00:00:00 2020-06-10 00:00:00 Outpatient STLMLC STLMLC [id number] [facility] 2020-04-22 00:00:00 2020-04-22 00:00:00 Outpatient STLMLC STLMLC [id number] [facility] 2020-04-01 00:00:00 2020-04-01 00:00:00 Outpatient STLMLC STLMLC [id number] [facility] 2020-02-15 00:00:00 2020-02-15 00:00:00 Outpatient STLMLC STLMLC [id number] [facility] 2020-01-17 00:00:00 2020-01-17 00:00:00 Outpatient STLMLC STLMLC [id number] [facility] 2019-12-11 14:00:00 2019-12-11 14:00:00 Outpatient [facility] [id number] [facility] 2017-09-06 10:46:00 2017-09-06 23:59:00 Outpatient Deanna YAO BRADEN [facility] [id number] [facility] Results Test Description Test Time Test Comments Results Result Co mments Source TSH REFLEX TO FREE [id number] 00:00:00* Test Item Value Reference Range Interpretation Comme nts NUCLEATED RBCS (test code = 45037-4) 0.0 /100 WBC'S See_Comment [Automated message] The system which generated this result transmitted reference range: 0.0 /100 WBC'S. The reference range was not used to interpret this result as normal/abnormal. ABSOLUTE EOSINOPHILS (test code = 94858-3) 0.03 K/UL See_Comment [Automated message] The system which generated this result transmitted reference range: 0.00-0.50 K/UL. The reference range was not used to interpret this result as normal/abnormal. ABSOLUTE LYMPHOCYTES (test code = 03452-0) 1.25 K/UL See_Comment [Automated message] The system which generated this result transmitted reference range: 1.00-4.00 K/UL. The reference range was not used to interpret this result as normal/abnormal. ABSOLUTE MONOCYTES (test code = 06968-2) 1.33 K/UL See_Comment H [Automated message] The system which generated this result transmitted reference range: 0.20-1.00 K/UL. The reference range was not used to interpret this result as normal/abnormal. ABSOLUTE NEUTROPHILS (test code = 54848-3) 7.18 K/UL See_Comment [Automated message] The system which generated this result transmitted reference range: 1.50-7.50 K/UL. The reference range was not used to interpret this result as normal/abnormal. BASOPHILS (test code = 20773-5) 0.5 % EOSINOPHILS (test code = 69662-7) 0.3 % HEMATOCRIT (test code = 41056-5) 37.4 % See_Comment [Automated messa ge] The system which generated this result transmitted reference range: 34.0-45.0 %. The reference range was not used to interpret this result as normal/abnormal. HEMOGLOBIN (test code = 718-7) 12.2 G/DL See_Comment [Automated messa ge] The system which generated this result transmitted reference range: 11.5-15.5 G/DL. The reference range was not used to interpret this result as normal/abnormal. LYMPHOCYTES (test code = 25453-6) 12.6 % MCH (test code = 35353-6) 31.9 PG See_Comment [Automated messa ge] The system which generated this result transmitted reference range: 25.0-33.0 PG. The reference range was not used to interpret this result as normal/abnormal. MCHC (test code = 29073-0) 32.6 G/DL See_Comment [Automated messa ge] The system which generated this result transmitted reference range: 31.0-36.0 G/DL. The reference range was not used to interpret this result as normal/abnormal. MCV (test code = 28278-5) 97.9 fL See_Comment [Automated messa ge] The system which generated this result transmitted reference range: 80.0-99.0 fL. The reference range was not used to interpret this result as normal/abnormal. MONOCYTES (test code = 60691-0) 13.4 % NEUTROPHILS (test code = 37629-2) 72.0 % PLATELET COUNT (test code = 51642-5) 272 K/UL See_Comment [Automated messa ge] The system which generated this result transmitted reference range: 130-400 K/UL. The reference range was not used to interpret this result as normal/abnormal. RBC (test code = 91113-6) 3.82 M/UL See_Comment [Automated messa ge] The system which generated this result transmitted reference range: 3.80-5.40 M/UL. The reference range was not used to interpret this result as normal/abnormal. RDW (test code = 98185-5) 13.0 % See_Comment [Automated messa ge] The system which generated this result transmitted reference range: 11.5-15.0 %. The reference range was not used to interpret this result as normal/abnormal. WBC (test code = 32724-3) 10.0 K/UL See_Comment [Automated messa ge] The system which generated this result transmitted reference range: 3.5-11.0 K/UL. The reference range was not used to interpret this result as normal/abnormal. CALC LDL CHOL (test code = 25669-3) 66 MG/DL See_Comment [Automated messa ge] The system which generated this result transmitted reference range: <100 MG/DL. The reference range was not used to interpret this result as normal/abnormal. CHOLESTEROL (test code = 2093-3) 109 MG/DL See_Comment [Automated [employer] ge] The system which generated this result transmitted reference range: <200 MG/DL. The reference range was not used to interpret this result as normal/abnormal. HDL CHOLESTEROL (test code = 2085-9) 25 MG/DL See_Comment L [Automated messa ge] The system which generated this result transmitted reference range: >39 MG/DL. The reference range was not used to interpret this result as normal/abnormal. RISK RATIO LDL/HDL (test code = 86054-6) 2.64 RATIO See_Comment [Automated message] The system which generated this result transmitted reference range: <3.22 RATIO. The reference range was not used to interpret this result as normal/abnormal. TRIGLYCERIDES (test code = 2571-8) 95 MG/DL See_Comment [Automated messa ge] The system which generated this result transmitted reference range: <150 MG/DL. The reference range was not used to interpret this result as normal/abnormal. ALBUMIN (test code = 1751-7) 3.5 G/DL See_Comment [Automated messa ge] The system which generated this result transmitted reference range: 3.5-5.2 G/DL. The reference range was not used to interpret this result as normal/abnormal. ALKALINE PHOSPHATASE (test code = 6768-6) 95 U/L See_Comment [Automated message] The system which generated this result transmitted reference range: 40-142 U/L. The reference range was not used to interpret this result as normal/abnormal. BILIRUBIN, TOTAL (test code = 1975-2) 0.2 MG/DL See_Comment [Automated messa ge] The system which generated this result transmitted reference range: <=1.2 MG/DL. The reference range was not used to interpret this result as normal/abnormal. BUN (test code = 3094-0) 19 MG/DL See_Comment [Automated messa ge] The system which generated this result transmitted reference range: 8-23 MG/DL. The reference range was not used to interpret this result as normal/abnormal. CALCIUM (test code = 86171-1) 9.4 MG/DL See_Comment [Automated messa ge] The system which generated this result transmitted reference range: 8.5-10.5 MG/DL. The reference range was not used to interpret this result as normal/abnormal. CALC A/G RATIO (test code = 1759-0) 1.3 RATIO See_Comment [Automated messa ge] The system which generated this result transmitted reference range: 1.0-2.6 RATIO. The reference range was not used to interpret this result as normal/abnormal. CALC BUN/CREAT (test code = 3097-3) 21 RATIO See_Comment [Automated messa ge] The system which generated this result transmitted reference range: 6-28 RATIO. The reference range was not used to interpret this result as normal/abnormal. CALC GLOBULIN (test code = 13942-5) 2.6 G/DL See_Comment [Automated messa ge] The system which generated this result transmitted reference range: 1.9-3.7 G/DL. The reference range was not used to interpret this result as normal/abnormal. CARBON DIOXIDE (test code = 1962-8) 28 MEQ/L See_Comment [Automated messa ge] The system which generated this result transmitted reference range: 19-31 MEQ/L. The reference range was not used to interpret this result as normal/abnormal. CHLORIDE (test code = 2075-0) 97 MEQ/L See_Comment [Automated messa ge] The system which generated this result transmitted reference range: 95-107 MEQ/L. The reference range was not used to interpret this result as normal/abnormal. CREATININE (test code = 2160-0) 0.90 MG/DL See_Comment [Automated messa ge] The system which generated this result transmitted reference range: 0.60-1.30 MG/DL. The reference range was not used to interpret this result as normal/abnormal. eGFR (2020 CKD-EPI) (test code = 04887-6) 69 ML/MIN/1.73 See_Comment [Automated message] The system which generated this result transmitted reference range: >60 ML/MIN/1.73. The reference range was not used to interpret this result as normal/abnormal. GLUCOSE (test code = 1558-6) 109 MG/DL See_Comment H [Automated messa ge] The system which generated this result transmitted reference range: 70-99 MG/DL. The reference range was not used to interpret this result as normal/abnormal. POTASSIUM (test code = 2823-3) 5.0 MEQ/L See_Comment [Automated messa ge] The system which generated this result transmitted reference range: 3.5-5.4 MEQ/L. The reference range was not used to interpret this result as normal/abnormal. PROTEIN, TOTAL (test code = 2885-2) 6.1 G/DL See_Comment [Automated messa ge] The system which generated this result transmitted reference range: 6.1-8.3 G/DL. The reference range was not used to interpret this result as normal/abnormal. AST (test code = 1920-8) 26 U/L See_Comment [Automated messa ge] The system which generated this result transmitted reference range: 9-40 U/L. The reference range was not used to interpret this result as normal/abnormal. ALT (test code = 1742-6) 20 U/L See_Comment [Automated messa ge] The system which generated this result transmitted reference range: 5-40 U/L. The reference range was not used to interpret this result as normal/abnormal. SODIUM (test code = 2951-2) 136 MEQ/L See_Comment [Automated messa ge] The system which generated this result transmitted reference range: 133-146 MEQ/L. The reference range was not used to interpret this result as normal/abnormal. HEMOGLOBIN A1c (test code = 4548-4) 5.5 % See_Comment [Automated messa ge] The system which generated this result transmitted reference range: 4.2-5.6 %. The reference range was not used to interpret this result as normal/abnormal. TSH REFLEX TO FREE T4 (test code = 80530-9) 2.030 UIU/ML See_Comment [Automated message] The system which generated this result transmitted reference range: 0.400-4.100 UIU/ML. The reference range was not used to interpret this result as normal/abnormal. [id number] 00:00:18dralphSoczydknl3724-38-45 00:00:00result- DUP VEIN [id number] 18:17:00 [facility] 1955 Sex: F Name: SALINA LAFLEUR [facility] : 1955 Age/S: 67 / F [address] [place] [address] Blvd Unit #: [id number] Loc: [place] [address] Phys: Tamara Benavides Acct: [id number] Dis Date: Status: ADM IN PHONE #: [phone] Exam Date: 03/13/20231806 FAX #: [phone] Reason: R/O DVT EXAMS: CPT CODE: [id number] DUP VEIN GEORGE 97681 LOCATION: H43 EXAM: - DUP VEIN GEORGE HISTORY: R/O DVT COMPARISON: None. TECHNIQUE: Multiplanar real-time ultrasonography of the bilateral lower extremity venous systems using orourke-scale and color imaging, supplemented by Doppler with spectral analysis, augmentation, and compression maneuvers as needed. FINDINGS: Right: Common femoral vein: Patent Superficial femoral vein: Patent Popliteal vein: Patent Saphenous vein: Patent Calf veins: Nonocclusive thrombus distal posterior tibial vein. Venous compressibility: Noncompressible distal posterior tibial vein. Waveform response to augmentation: Normal Left: Common femoral vein: Patent Superficial femoral vein: Patent Popliteal vein: Patent Saphenous vein: Patent Calf veins: Limited assessment of the calf vessels. No occlusive thrombus. Venous compressibility: Limited assessment of the calf vessels. Waveform response to augmentation: Normal IMPRESSION: Right: Nonocclusive thrombosis of distal posterior tibial vein. Left: No evidence of deep venous thrombosis involving the visualized veins above the knee. Limited assessment of the calf vessels without evidence of occlusive thrombus. PAGE 1 Signed Report (CONTINUED) Name: SALINA LAFLEUR [facility] : 1955 Age/S: 67 / F [address] [place] [address] Unit #: [id number] Loc: [place] [address] Phys: Tamara Benavides Acct: [id number] Dis Date: Status: ADM IN PHONE #: [phone] Exam Date: 03/13/20231806 FAX #: [phone] Reason: R/O DVT EXAMS: CPT CODE: [id number] DUP VEIN GEORGE 49975 (Continued) at 1817 Reported and signed by: Marion Parker M.D. CC: Vijay Woodruff MD; Svitlana Lui MD; Tamara Benavides Technologist: Rina Knowles Trnrib Date/Time: 03/13/2023 (1816) [id number] Orig Print D/T: S: 03/13/2023 (1820) Probe: PAGE 2 Signed Report- XR CHEST 1 [id number] 09:11:00 [facility] 1955 Sex: F FAX: Vijay Rivera MD [phone] [place]: St: ADM FAX: Svitlana Manuel MD [phone] FAX: Tamara Sandoval [facility] [phone] Name: SALINA LAFLEUR [facility] : 1955 Age/S: 67/F [address] [place] [address] Unit #: [id number] Loc: G.[address] [place] [address] Phys: Tamara Benavides Physic Acct: [id number] Dis Date: Status: ADM IN PHONE #: [phone] Exam Date: 03/13/2023 0746 FAX #: [phone] Reason: Cardiac Surgery Post Op EXAMS: CPT CODE: [id number] XR CHEST 1 V 53405 EXAM: Chest x- ray, 1 view Dictation location: C3 COMPARISON: Chest x-ray on 03/12/2023 INDICATION: Cardiac Surgery Post Op DISCUSSION: Positioning is somewhat kyphotic. Prior median sternotomy and aortic valve replacement are noted. There is partial consolidation at the medial lung bases and small bilateralpleural effusions. No pneumothorax is seen. Moderate cardiac silhouette enlargement appears similar. No acute bony abnormalities are identified. IMPRESSION: 1. Findings suggest CHF and aortic valve replacement. 2. Unchanged atelectasis and/or pneumonia at the medial lung bases. 3. Unchanged small pleural effusions. at 0911 Reported and signed by: Lukas Quinones M.D. CC: Vijay Woodruff MD; Svitlana Lui MD; Tamara Benavides Technologist: Levon Fisher RT(R) Trnscrd Date/Time/By: 03/13/2023 (910) : By: [email or web address] Orig Print D/T: S: 03/13/2023 (9114) PAGE 1 Signed ReportBASIC METABOLIC [id number] 03:32:00* Test Item Value Reference Range Interpretation Comme nts SODIUM (test code = NA) 138 mEq/L 134-147 N POTASSIUM (test code = K) 4.7 mEq/L 3.4-5.0 N CHLORIDE (test code = CL) 107 mEq/L 100-108 N CARBON DIOXIDE (test code = CO2) 29 mEq/l 21-33 N ANION GAP (test code = GAP) 7 0-20 N GLUCOSE (test code = GLU) 98 mg/dL 77-141 N NOTE: NEW NORMAL RANGE BLOOD UREA NITROGEN (test code = BUN) 20 mg/dL 7-25 N NOTE: NEW NORM AL RANGE GLOMERULAR FILTRATION RATE (test code = GFR) 97.7 80-90 H The Glomerular Filtration Rate is a calculated parameterbased on serum Creatinine, patient age and sex. GFR valuesless than 60 mL/min/1.73 square meters are indicative ofChronic Kidney Disease. Values less than 15 mL/min/1.73square meters indicate Kidney failure. The calculation forGFR is based on the CKD-EPI (2020) calculation. This formulais race indifferent and is the recommended formula for GFRby the National Kidney Foundation for Adults.The GFR will not calculate if the sex is unknown or if thepatient's age is <18 years. CREATININE (test code = CREAT) 0.6 mg/dL 0.6-1.3 N CALCIUM (test code = CA) 9.3 mg/dL 8.0-10.5 N [id number] 03:32:00* Test Item Value Reference Range Interpretation Comme nts MAGNESIUM (test code = MAG) 2.03 mg/dL 1.6-2.6 N NOTE: NEW NORMAL RANGE CBC W/AUTO [id number] 03:10:00* Test Item Value Reference Range Interpretation Comme nts WHITE BLOOD CELL (test code = WBC) 6.2 x10 3/uL 4.5-11.0 N RED BLOOD CELL (test code = RBC) 2.62 x10 6/uL 3.54-5.02 L HEMOGLOBIN (test code = HGB) 8.2 g/dL 11.0-15.0 L HEMATOCRIT (test code = HCT) 25.3 % 33.0-45.0 L MEAN CELL VOLUME (test code = MCV) 96.6 fL 81.0-99.0 N MEAN CELL HGB (test code = MCH) 31.3 pg 27.0-33.0 N MEAN CELL HGB CONCETRATION (test code = MCHC) 32.4 g/dL 33.0-37.0 L RED CELL DISTRIBUTION WIDTH CV (test code = RDW) 13.8 % 11.5-14.5 N RED CELL DISTRIBUTION WIDTH SD (test code = RDW-SD) 49.1 fL 37.0-54.0 N PLATELET COUNT (test code = PLT) 231 x10 3/uL 150-400 N MEAN PLATELET VOLUME (test c ode = MPV) 8.9 fL 7.0-9.0 N NEUTROPHIL % (test code = NT%) 58.0 % 56.0-77.0 N IMMATURE GRANULOCYTE % (test code = IG%) 0.8 % 0.0-2.0 N LYMPHOCYTE % (test code = LY%) 27.8 % 14.0-32.0 N MONOCYTE % (test code = MO%) 10.0 % 4.8-9.0 H EOSINOPHIL % (test code = EO%) 3.1 % 0.3-3.7 N BASOPHIL % (test code = BA%) 0.3 % 0.0-2.0 N NUCLEATED RBC % (test code = NRBC%) 0.0 % 0-0 N NEUTROPHIL # (test code = NT#) 3.58 x10 3/uL 2.0-7.6 N IMMATURE GRANULOCYTE # (test code = IG#) 0.05 x10 3/uL 0.00-0.03 H LYMPHOCYTE # (test code = LY#) 1.72 x10 3/uL 1.0-3.8 N MONOCYTE # (test code = MO#) 0.62 x10 3/uL 0.1-0.8 N EOSINOPHIL # (test code = EO#) 0.19 x10 3/uL 0.0-0.2 N BASOPHIL # (test code = BA#) 0.02 x10 3/uL 0.0-0.2 N NUCLEATED RBC # (test code = NRBC#) 0.00 x10 3/uL 0.0-0.1 N - XR CHEST 1 [id number] 07:20:00 [facility] 1955 Sex: F FAX: Vijay Rivera MD [phone] [place]: St: [facility] FAX: Svitlana Manuel MD [phone] FAX: Tamara Sandoval Phy [phone] Name: SALINA LAFLEUR [facility] : 1955 Age/S: 67/F [address] [place] [address] Blvd Unit #: [id number] Loc: G.[address] [place] [address] Phys: Tamara Benavides Acct: [id number] Dis Date: Status: ADM IN PHONE #: [phone] Exam Date: 03/12/2023526 FAX #: [phone] Reason: Cardiac Surgery Post Op EXAMS: CPT CODE: [id number] XR CHEST 1 V 29675 Chest Radiograph History: Cardiac Surgery Post Op Comparison: March 11, 2023 Location: [facility] A single frontal view of the chest is submitted. The heart appears unchanged in size. There is mild pulmonary vascular congestion. There are patchy opacities in the lung bases bilaterally. There are tiny bilateral pleural effusions. The bones appear unchanged. IMPRESSION: There is mild pulmonary vascular congestio n. There are patchy opacities in the lung bases bilaterally. This could be due to atelectasis or pneumonia. There are tiny bilateral pleural effusions. Compared to the prior exam, there has been little change. at 0720 Reportedand signed by: Gregory Rodriguez M.D. CC: Vijay Woodruff MD; Svitlana Lui MD; Tamara Benavides Technologist: Marianna Mcleod, RT(R) Trnscrd Date/Time/By: 03/12/2023 (0720) : By: [email or web address] Orig Print D/T: S: 03/12/2023 (0731) PAGE 1 Signed ReportBASIC METABOLIC [id number] 03:57:00* Test Item Value Reference Range Interpretation Comme nts SODIUM (test code = NA) 137 mEq/L 134-147 N POTASSIUM (test code = K) 4.4 mEq/L 3.4-5.0 N CHLORIDE (test code = CL) 103 mEq/L 100-108 N CARBON DIOXIDE (test code = CO2) 28 mEq/l 21-33 N ANION GAP (test code = GAP) 10 0-20 N GLUCOSE (test code = GLU) 101 mg/dL 77-141 N NOTE: NEW NORMAL RANGE BLOOD UREA NITROGEN (test code = BUN) 18 mg/dL 7-25 N NOTE: NEW NORM AL RANGE GLOMERULAR FILTRATION RATE (test code = GFR) 97.7 80-90 H The Glomerular Filtration Rate is a calculated parameterbased on serum Creatinine, patient age and sex. GFR valuesless than 60 mL/min/1.73 square meters are indicative ofChronic Kidney Disease. Values less than 15 mL/min/1.73square meters indicate Kidney failure. The calculation forGFR is based on the CKD-EPI (2020) calculation. This formulais race indifferent and is the recommended formula for GFRby the National Kidney Foundation for Adults.The GFR will not calculate if the sex is unknown or if thepatient's age is <18 years. CREATININE (test code = CREAT) 0.6 mg/dL 0.6-1.3 N CALCIUM (test code = CA) 8.9 mg/dL 8.0-10.5 N [id number] 03:57:00* Test Item Value Reference Range Interpretation Comme nts MAGNESIUM (test code = MAG) 2.11 mg/dL 1.6-2.6 N NOTE: NEW NORMAL RANGE CBC W/AUTO [id number] 03:41:00* Test Item Value Reference Range Interpretation Comme nts WHITE BLOOD CELL (test code = WBC) 7.0 x10 3/uL 4.5-11.0 N RED BLOOD CELL (test code = RBC) 2.51 x10 6/uL 3.54-5.02 L HEMOGLOBIN (test code = HGB) 8.0 g/dL 11.0-15.0 L HEMATOCRIT (test code = HCT) 24.1 % 33.0-45.0 L MEAN CELL VOLUME (test code = MCV) 96.0 fL 81.0-99.0 N MEAN CELL HGB (test code = MCH) 31.9 pg 27.0-33.0 N MEAN CELL HGB CONCETRATION (test code = MCHC) 33.2 g/dL 33.0-37.0 N RED CELL DISTRIBUTION WIDTH CV (test code = RDW) 14.1 % 11.5-14.5 N RED CELL DISTRIBUTION WIDTH SD (test code = RDW-SD) 49.8 fL 37.0-54.0 N PLATELET COUNT (test code = PLT) 171 x10 3/uL 150-400 N MEAN PLATELET VOLUME (test c ode = MPV) 9.3 fL 7.0-9.0 H NEUTROPHIL % (test code = NT%) 64.4 % 56.0-77.0 N IMMATURE GRANULOCYTE % (test code = IG%) 0.4 % 0.0-2.0 N LYMPHOCYTE % (test code = LY%) 24.4 % 14.0-32.0 N MONOCYTE % (test code = MO%) 9.1 % 4.8-9.0 H EOSINOPHIL % (test code = EO%) 1.4 % 0.3-3.7 N BASOPHIL % (test code = BA%) 0.3 % 0.0-2.0 N NUCLEATED RBC % (test code = NRBC%) 0.0 % 0-0 N NEUTROPHIL # (test code = NT#) 4.48 x10 3/uL 2.0-7.6 N IMMATURE GRANULOCYTE # (test code = IG#) 0.03 x10 3/uL 0.00-0.03 N LYMPHOCYTE # (test code = LY#) 1.70 x10 3/uL 1.0-3.8 N MONOCYTE # (test code = MO#) 0.63 x10 3/uL 0.1-0.8 N EOSINOPHIL # (test code = EO#) 0.10 x10 3/uL 0.0-0.2 N BASOPHIL # (test code = BA#) 0.02 x10 3/uL 0.0-0.2 N NUCLEATED RBC # (test code = NRBC#) 0.00 x10 3/uL 0.0-0.1 N - XR CHEST 1 [id number] 07:37:00 [facility] 1955 Sex: F FAX: Vijay Rivera MD [phone] [place]: St: [facility] FAX: Svitlana Manuel MD [phone] FAX: Tamara Sandoval [phone] Name: SALINA LAFLEUR [facility] : 1955 Age/S: 67/F [address] [place] [address] Unit #: [id number] Loc: G.2204 [place] [address] Phys: Tamara Benavides PhysicAcct: [id number] Dis Date: Status: ADM IN PHONE #: [phone] Exam Date: 03/11/2023 0639 FAX #: [phone] Reason: Cardiac Surgery Post Op EXAMS: CPT CODE: [id number] XR CHEST 1 V 61122 Chest Radiograph History: Cardiac Surgery Post Op Comparison: March 10, 2023 Location: [facility] A single frontal view of the chest is submitted. The heart appears unchanged in size. There is mild pulmonary vascular congestion. There are patchy opacities in the lung bases bilaterally. There are tiny bilateral pleural effusions. The bones appear unchanged. IMPRESSION: There is mild pulmonary vascular congestion. There are patchy opacities in the lung bases bilaterally. This could be due to atelectasis orpneumonia. There are tiny bilateral pleural effusions. Compared to the prior exam, there has been little change. at 0737 Reported and signed by: Gregory Rodriguez M.D. CC: Vijay Woodruff MD; Svitlana Lui MD; Tamara Benavides Technologist: RT Kimberly(Nacho) Trnscrd Date/Time/By: 03/11/2023 (0737) : By: LizPMT Orig Print D/T: S: 03/11/2023 (2014) PAGE 1 Signed Report BASIC METABOLIC [id number] 04:34:00* Test Item Value Reference Range Interpretation Comme nts SODIUM (test code = NA) 134 mEq/L 134-147 N POTASSIUM (test code = K) 4.3 mEq/L 3.4-5.0 N CHLORIDE (test code = CL) 104 mEq/L 100-108 N CARBON DIOXIDE (test code = CO2) 27 mEq/l 21-33 N ANION GAP (test code = GAP) 7 0-20 N GLUCOSE (test code = GLU) 108 mg/dL 77-141 N NOTE: NEW NORMAL RANGE BLOOD UREA NITROGEN (test code = BUN) 14 mg/dL 7-25 N NOTE: NEW NORM AL RANGE GLOMERULAR FILTRATION RATE (test code = GFR) 97.7 80-90 H The Glomerular Filtration Rate is a calculated parameterbased on serum Creatinine, patient age and sex. GFR valuesless than 60 mL/min/1.73 square meters are indicative ofChronic Kidney Disease. Values less than 15 mL/min/1.73square meters indicate Kidney failure. The calculation forGFR is based on the CKD-EPI (2020) calculation. This formulais race indifferent and is the recommended formula for GFRby the National Kidney Foundation for Adults.The GFR will not calculate if the sex is unknown or if thepatient's age is <18 years. CREATININE (test code = CREAT) 0.6 mg/dL 0.6-1.3 N CALCIUM (test code = CA) 9.2 mg/dL 8.0-10.5 N COMMENTS: POD #1HEPATIC FUNCTION [id number] 04:34:00* Test Item Value Reference Range Interpretation Comme nts TOTAL PROTEIN (test code = PROT) 5.9 g/dL 6.4-8.2 L ALBUMIN (test code = ALB) 3.30 g/dL 3.4-5.0 L BILIRUBIN TOTAL (test code = BILT) 0.40 mg/dL 0.0-1.0 N BILIRUBIN DIRECT (test code = BILD) 0.20 MG/DL 0.1-0.3 NOTE: NEW NORMAL RANGE BILIRUBIN INDIRECT (test code = BILIND) 0.20 MG/DL SGOT/AST (test code = AST) 26 IUnit/L 8-34 N NOTE: NEW NORMAL RANGE SGPT/ALT (test code = ALT) 9 IUnit/L 10-49 L NOTE: NEW NORMAL RANGE ALKALINE PHOSPHATASE TOTAL (test code = ALKP) 57 IUnit/L 20-125 N COMMENTS: POD #[id number] 04:34:00* Test Item Value Reference Range Interpretation Comme nts MAGNESIUM (test code = MAG) 1.89 mg/dL 1.6-2.6 N NOTE: NEW NORMAL RANGE COMMENTS: POD #1CBC W/AUTO [id number] 04:06:00* Test Item Value Reference Range Interpretation Comme nts WHITE BLOOD CELL (test code = WBC) 9.6 x10 3/uL 4.5-11.0 N RED BLOOD CELL (test code = RBC) 2.76 x10 6/uL 3.54-5.02 L HEMOGLOBIN (test code = HGB) 8.8 g/dL 11.0-15.0 L HEMATOCRIT (test code = HCT) 26.7 % 33.0-45.0 L MEAN CELL VOLUME (test code = MCV) 96.7 fL 81.0-99.0 N MEAN CELL HGB (test code = MCH) 31.9 pg 27.0-33.0 N MEAN CELL HGB CONCETRATION (test code = MCHC) 33.0 g/dL 33.0-37.0 N RED CELL DISTRIBUTION WIDTH CV (test code = RDW) 14.1 % 11.5-14.5 N RED CELL DISTRIBUTION WIDTH SD (test code = RDW-SD) 50.0 fL 37.0-54.0 N PLATELET COUNT (test code = PLT) 134 x10 3/uL 150-400 L MEAN PLATELET VOLUME (test c ode = MPV) 9.2 fL 7.0-9.0 H NEUTROPHIL % (test code = NT%) 72.5 % 56.0-77.0 N IMMATURE GRANULOCYTE % (test code = IG%) 0.5 % 0.0-2.0 N LYMPHOCYTE % (test code = LY%) 18.8 % 14.0-32.0 N MONOCYTE % (test code = MO%) 7.4 % 4.8-9.0 N EOSINOPHIL % (test code = EO%) 0.6 % 0.3-3.7 N BASOPHIL % (test code = BA%) 0.2 % 0.0-2.0 N NUCLEATED RBC % (test code = NRBC%) 0.0 % 0-0 N NEUTROPHIL # (test code = NT#) 6.91 x10 3/uL 2.0-7.6 N IMMATURE GRANULOCYTE # (test code = IG#) 0.05 x10 3/uL 0.00-0.03 H LYMPHOCYTE # (test code = LY#) 1.80 x10 3/uL 1.0-3.8 N MONOCYTE # (test code = MO#) 0.71 x10 3/uL 0.1-0.8 N EOSINOPHIL # (test code = EO#) 0.06 x10 3/uL 0.0-0.2 N BASOPHIL # (test code = BA#) 0.02 x10 3/uL 0.0-0.2 N NUCLEATED RBC # (test code = NRBC#) 0.00 x10 3/uL 0.0-0.1 N - XR CHEST 1 [id number] 06:54:00 [facility] : 1955 Sex: F FAX: Vijay Rivera MD [phone] [place]: GC St: ADM FAX: Svitlana Manuel MD [phone] FAX: Tamara Sandoval Phy [phone] Name: SALINA LAFLEUR [facility] [place] : 1955 Age/S: 67/F [address] [place] [address] Blvd Unit #: [id number] Loc: G.2204 [place] [address] Phys: Tamara Benavides Acct: [id number] Dis Date: Status: ADM IN PHONE #: [phone] Exam Date: 03/10/2023519 FAX #: [phone] Reason: Cardiac Surgery Post Op EXAMS: CPT CODE: [id number] XR CHEST 1 V 35529 Chest Radiograph History: Cardiac Surgery Post Op Comparison: March 09, 2023 Location: H45 A single frontal view of the chest is submitted. The heart appears unchanged in size. There is mild pulmonary vascular prominence. There are minimal patchy opacities in the lung bases bilaterally. The bones appear unchanged. The Hur[place]- Stef catheter has been removed. IMPRESSION: There is mild pulmonary vascular prominence. There are minimal patchy opacities in the lung bases bilaterally. This could be due to atelectasis or pneumonia. Compared to the prior exam, there has been little change. at 0654 Reported and signed by: Gregory Rodriguez M.D. CC: Vijay oWodruff MD; Svitlana Lui MD; Tamara Benavides Technologist: RT Berna(R) Trnscrd Date/Time/By: 03/10/2023 (0654) : By: LizPMT Orig Print D/T: S: 03/10/2023 (0657) PAGE 1 Signed ReportBASIC METABOLIC PANEL 2023-03-10 04:23:00* Test Item Value Reference Range Interpretation Comme nts SODIUM (test code = NA) 137 mEq/L 134-147 N POTASSIUM (test code = K) 3.9 mEq/L 3.4-5.0 N CHLORIDE (test code = CL) 104 mEq/L 100-108 N CARBON DIOXIDE (test code = CO2) 29 mEq/l 21-33 N ANION GAP (test code = GAP) 8 0-20 N GLUCOSE (test code = GLU) 126 mg/dL 77-141 N NOTE: NEW NORMAL RANGE BLOOD UREA NITROGEN (test code = BUN) 13 mg/dL 7-25 N NOTE: NEW NORM AL RANGE GLOMERULAR FILTRATION RATE (test code = GFR) 97.7 80-90 H The Glomerular Filtration Rate is a calculated parameterbased on serum Creatinine, patient age and sex. GFR valuesless than 60 mL/min/1.73 square meters are indicative ofChronic Kidney Disease. Values less than 15 mL/min/1.73square meters indicate Kidney failure. The calculation forGFR is based on the CKD-EPI (202) calculation. This formulais race indifferent and is the recommended formula for GFRby the National Kidney Foundation for Adults.The GFR will not calculate if the sex is unknown or if thepatient's age is <18 years. CREATININE (test code = CREAT) 0.6 mg/dL 0.6-1.3 N CALCIUM (test code = CA) 8.9 mg/dL 8.0-10.5 N COMMENTS: POD #1BY [id number] FUNCTION [id number] 04:23:00* Test Item Value Reference Range Interpretation Comme nts TOTAL PROTEIN (test code = PROT) 5.5 g/dL 6.4-8.2 L ALBUMIN (test code = ALB) 3.40 g/dL 3.4-5.0 N BILIRUBIN TOTAL (test code = BILT) 0.50 mg/dL 0.0-1.0 N BILIRUBIN DIRECT (test code = BILD) 0.30 MG/DL 0.1-0.3 NOTE: NEW NORMAL RANGE BILIRUBIN INDIRECT (test code = BILIND) 0.20 MG/DL SGOT/AST (test code = AST) 29 IUnit/L 8-34 N NOTE: NEW NORMAL RANGE SGPT/ALT (test code = ALT) 8 IUnit/L 10-49 L NOTE: NEW NORMAL RANGE ALKALINE PHOSPHATASE TOTAL (test code = ALKP) 44 IUnit/L 20-125 N COMMENTS: POD #1BY [id number] 04:23:00* Test Item Value Reference Range Interpretation Comme nts MAGNESIUM (test code = MAG) 1.70 mg/dL 1.6-2.6 NOTE: NEW NORMAL RANGE COMMENTS: POD #1BY [id number] W/AUTO [id number] 03:42:00* Test Item Value Reference Range Interpretation Comme nts WHITE BLOOD CELL (test code = WBC) 9.7 x10 3/uL 4.5-11.0 N RED BLOOD CELL (test code = RBC) 2.66 x10 6/uL 3.54-5.02 L HEMOGLOBIN (test code = HGB) 8.4 g/dL 11.0-15.0 L HEMATOCRIT (test code = HCT) 26.2 % 33.0-45.0 L MEAN CELL VOLUME (test code = MCV) 98.5 fL 81.0-99.0 N MEAN CELL HGB (test code = MCH) 31.6 pg 27.0-33.0 N MEAN CELL HGB CONCETRATION (test code = MCHC) 32.1 g/dL 33.0-37.0 L RED CELL DISTRIBUTION WIDTH CV (test code = RDW) 14.4 % 11.5-14.5 N RED CELL DISTRIBUTION WIDTH SD (test code = RDW-SD) 52.3 fL 37.0-54.0 N PLATELET COUNT (test code = PLT) 119 x10 3/uL 150-400 L MEAN PLATELET VOLUME (test c ode = MPV) 9.2 fL 7.0-9.0 H NEUTROPHIL % (test code = NT%) 71.3 % 56.0-77.0 N IMMATURE GRANULOCYTE % (test code = IG%) 0.6 % 0.0-2.0 N LYMPHOCYTE % (test code = LY%) 19.9 % 14.0-32.0 N MONOCYTE % (test code = MO%) 7.8 % 4.8-9.0 N EOSINOPHIL % (test code = EO%) 0.2 % 0.3-3.7 L BASOPHIL % (test code = BA%) 0.2 % 0.0-2.0 N NUCLEATED RBC % (test code = NRBC%) 0.0 % 0-0 N NEUTROPHIL # (test code = NT#) 6.90 x10 3/uL 2.0-7.6 N IMMATURE GRANULOCYTE # (test code = IG#) 0.06 x10 3/uL 0.00-0.03 H LYMPHOCYTE # (test code = LY#) 1.92 x10 3/uL 1.0-3.8 N MONOCYTE # (test code = MO#) 0.75 x10 3/uL 0.1-0.8 N EOSINOPHIL # (test code = EO#) 0.02 x10 3/uL 0.0-0.2 N BASOPHIL # (test code = BA#) 0.02 x10 3/uL 0.0-0.2 N NUCLEATED RBC # (test code = NRBC#) 0.00 x10 3/uL 0.0-0.1 N BY [id number] 13:37:00* Test Item Value Reference Range Interpretation Comments SURGICAL (test code = SR) RUN DATE: 03/09/23 [place] [facility] PAGE 1 RUN TIME: 1337 Specimen Inquiry RUN USER: INTERFACE PATIENT: SALINA LAFLEUR LOC: [facility] U #: [id number] AGE/SX: 67/F ROOM: [facility] RE03/08/23LORI DR: Svitlana Lui MD : 53 BED: 1 DIS: STATUS: ADM IN TLOC: SPEC #: [id number] RECD: 03/08/23 STATUS: MARTÍNEZ WEBER #: [id number] PIEDAD: 03/08/23- SUBM DR: Svitlana Lui MD ENTERED: 03/08/23 SP TYPE: SURGICAL OTHR DR: Elisa Pham MD, Daniel R MD Hammoudeh, Fadi MDORDERED: FROZ 1st 45639, 47488, 42552, ANATOMIC SPEC COPIES TO: Elisa Pham MD [address] [place] [address] Vijay Woodruff MD [address] [address] [email or web address] Svitlana Lui MD [address] [facility]. [address] [place] [id number] Franck Hsieh MD [address] [place] [address] PROCEDURES: FROZ 1st 67680 (03/08/23) 72222 (03/08/23) 51575 (03/08/23) TISSUES: A. ATRIUM - LEFT ATRIAL APPENDAGE B. AORTIC VALVE - CUSP/LEAFLET FOR FROZEN AND CULTURES CLINICAL HISTORY SAME CONTINUED ON NEXT PAGE RUN DATE: 03/09/23 [place] - LAB PAGE 2 RUN TIME: 1337 Specimen Inquiry RUN USER: INTERFACE SPEC #: [id number] PATIENT: SALINA LAFLEUR #[id number] (Continued) - FINAL DIAGNOSIS Left atrial appendage, segment: Moderate intimal thickening and ischemic changes. Aortic leaflet, segment marked degenerative changes segment: No evidence of vegetationseen. GROSS DESCRIPTION 1. Received in formalin and designated left atrial appendage is 1 segment of pink-posada toyellow soft tissue measuring 3.5 cm in largest dimension. Sections are submitted B. Also received a fresh designated aortic cusp/leaflet is 1 segment of orourke-white membranoustissue measuring 1.2 cm in largest dimension. 1 section is submitted for culture. Therest of the tissue submitted entirely as a A for frozen diagnosis. Technical component performed at [facility],[address] [place] [address] Unless gross only, the diagnosis is based upon microscopic examination.Immunohistochemistry: This test was developed and its performance characteristicsdetermined by this laboratory. It has not been approved nor does it need approvalby the [place] FDA. Appropriate positive and negative controls are reviewed and judgedto be acceptable for performedimmunohistochemistry and/or special stains. This laboratoryis certified under the Clinical Laboratory Improvement Amendments (CLIA-88) as qualified toperform high complexity clinical laboratory testing. INTRAOPERATIVE CONSULTATION PROCEDURE: Frozen diagnosis: Aortic leaflet, segment: FSA: Consistent with aortic leaflet.Start Time: 1159End Time: 1211Performed by: Marina JAY Reported to: MARGARETH CLINICAL INFORMATION AORTIC VALVE REGURGITATION --- Signed SIGNATURE ON FILE Sher Jay 03/09/23 1337 END OF REPORT GLUCOSE [id number] 10:37:00* Test Item Value Reference Range Interpretation Comme [facility] GLUCOSE BEDSIDE (test code = GLUBED) 136 MG/DL 70-110 H Performed by dionisio earl at [facility] - XR CHEST 1 [id number] 07:23:00 [facility] 1955 Sex: F FAX: Vijay Rivera MD [phone] [place]: St: ADM FAX: Svitlana Manuel MD [phone] FAX: Tamara Sandoval Phy [phone] Name: SALINA LAFLEUR [facility] Giancarlo Hairston : 1955 Age/S: 67/F [address] [place] [address] Unit #: [id number] Loc: G.2204 [place] [address] Phys: Tamara Benavides Acct: [id number] Dis Date: Status: ADM IN PHONE #: [phone] Exam Date: 03/09/2023 0646 FAX #: [phone] Reason: Cardiac Surgery Post Op EXAMS: CPT CODE: [id number] XR CHEST 1 V 05373 Chest Radiograph History: Cardiac Surgery Post Op Comparison: March 08, 2023 Location: H45 A single frontal view of the chest is submitted. The heart appears unchanged in size. There is mild pulmonary vascular prominence. There are minimal patchy opacities in the lung bases bilaterally. The bones appear unchanged. The vascular catheter appears unchanged. The endotracheal tube is not well demonstrated due to the patient's head. IMPRESSION: There is mild pulmonary vascular prominence. There are minimalpatchy opacities in the lung bases bilaterally. This could be due to atelectasis or pneumonia. at 0723 Reported and signed by:Gregory Rodriguez M.D. CC: Vijay Woodruff MD; Svitlana Lui MD; Tamara Benavides Technologist: RT Kimberly(R) Trnscrd Date/Time/By: 03/09/2023 (722) : By: LizPMT Orig Print D/T:S: 03/09/2023 (5498) PAGE 1 Signed ReportCBC W/AUTO [id number] 04:42:00* Test Item Value Reference Range Interpretation Comme nts WHITE BLOOD CELL (test code = WBC) 11.0 x10 3/uL 4.5-11.0 N RED BLOOD CELL (test code = RBC) 3.04 x10 6/uL 3.54-5.02 L HEMOGLOBIN (test code = HGB) 9.7 g/dL 11.0-15.0 L HEMATOCRIT (test code = HCT) 30.5 % 33.0-45.0 L MEAN CELL VOLUME (test code = MCV) 100.3 fL 81.0-99.0 H MEAN CELL HGB (test code = MCH) 31.9 pg 27.0-33.0 N MEAN CELL HGB CONCETRATION (test code = MCHC) 31.8 g/dL 33.0-37.0 L RED CELL DISTRIBUTION WIDTH CV (test code = RDW) 14.6 % 11.5-14.5 H RED CELL DISTRIBUTION WIDTH SD (test code = RDW-SD) 53.2 fL 37.0-54.0 N PLATELET COUNT (test code = PLT) 138 x10 3/uL 150-400 L MEAN PLATELET VOLUME (test c ode = MPV) 9.6 fL 7.0-9.0 H NEUTROPHIL % (test code = NT%) 77.2 % 56.0-77.0 H IMMATURE GRANULOCYTE % (test code = IG%) 0.4 % 0.0-2.0 N LYMPHOCYTE % (test code = LY%) 14.2 % 14.0-32.0 N MONOCYTE % (test code = MO%) 8.1 % 4.8-9.0 N EOSINOPHIL % (test code = EO%) 0.0 % 0.3-3.7 L BASOPHIL % (test code = BA%) 0.1 % 0.0-2.0 N NUCLEATED RBC % (test code = NRBC%) 0.0 % 0-0 N NEUTROPHIL # (test code = NT#) 8.52 x10 3/uL 2.0-7.6 H IMMATURE GRANULOCYTE # (test code = IG#) 0.04 x10 3/uL 0.00-0.03 H LYMPHOCYTE # (test code = LY#) 1.56 x10 3/uL 1.0-3.8 N MONOCYTE # (test code = MO#) 0.89 x10 3/uL 0.1-0.8 H EOSINOPHIL # (test code = EO#) 0.00 x10 3/uL 0.0-0.2 N BASOPHIL # (test code = BA#) 0.01 x10 3/uL 0.0-0.2 N NUCLEATED RBC # (test code = NRBC#) 0.00 x10 3/uL 0.0-0.1 N MANUAL DIFF REQUIRED (test c ode = MDIFF) NO BASIC METABOLIC [id number] 04:36:00* Test Item Value Reference Range Interpretation Comme nts SODIUM (test code = NA) 137 mEq/L 134-147 N POTASSIUM (test code = K) 4.2 mEq/L 3.4-5.0 N CHLORIDE (test code = CL) 112 mEq/L 100-108 H CARBON DIOXIDE (test code = CO2) 24 mEq/l 21-33 N ANION GAP (test code = GAP) 5 0-20 N GLUCOSE (test code = GLU) 103 mg/dL 77-141 N NOTE: NEW NORMAL RANGE BLOOD UREA NITROGEN (test code = BUN) 10 mg/dL 7-25 N NOTE: NEW NORM AL RANGE GLOMERULAR FILTRATION RATE (test code = GFR) 94.2 80-90 H The Glomerular Filtration Rate is a calculated parameterbased on serum Creatinine, patient age and sex. GFR valuesless than 60 mL/min/1.73 square meters are indicative ofChronic Kidney Disease. Values less than 15 mL/min/1.73square meters indicate Kidney failure. The calculation forGFR is based on the CKD-EPI (2020) calculation. This formulais race indifferent and is the recommended formula for GFRby the National Kidney Foundation for Adults.The GFR will not calculate if the sex is unknown or if thepatient's age is <18 years. CREATININE (test code = CREAT) 0.7 mg/dL 0.6-1.3 N CALCIUM (test code = CA) 8.7 mg/dL 8.0-10.5 N COMMENTS: POD #1HEPATIC FUNCTION [id number] 04:36:00* Test Item Value Reference Range Interpretation Comme nts TOTAL PROTEIN (test code = PROT) 5.5 g/dL 6.4-8.2 L ALBUMIN (test code = ALB) 3.60 g/dL 3.4-5.0 N BILIRUBIN TOTAL (test code = BILT) 0.40 mg/dL 0.0-1.0 N BILIRUBIN DIRECT (test code = BILD) 0.20 MG/DL 0.1-0.3 N NOTE: NEW NORMAL RANGE BILIRUBIN INDIRECT (test code = BILIND) 0.20 MG/DL SGOT/AST (test code = AST) 38 IUnit/L 8-34 H NOTE: NEW NORMAL RANGE SGPT/ALT (test code = ALT) 12 IUnit/L 10-49 N NOTE: NEW NORMAL RANGE ALKALINE PHOSPHATASE TOTAL (test code = ALKP) 44 IUnit/L 20-125 N COMMENTS: POD #[id number] 04:36:00* Test Item Value Reference Range Interpretation Comme nts MAGNESIUM (test code = MAG) 2.05 mg/dL 1.6-2.6 NOTE: NEW NORMAL RANGE COMMENTS: POD #1POC ARTERIAL BLOOD [id number] 02:30:00* Test Item Value Reference Range Interpretation Comme nts POC ARTERIAL BLOOD GAS PH (t est code = POCPHA) 7.394 7.35-7.45 N POC ARTERIAL BLOOD GAS PCO2 (test code = DVOMIU8G) 42.2 mmHg 35.0-45 N POC TCO2 ARTERIAL (test code = POCTCO2) 26.8 POC ARTERIAL BLOOD GAS PO2 ( test code = KXABK1F) 78.4 mmHg 80-100.0 L POC HCO3 ARTERIAL (test code = WQROVZ0L) 25.5 MMOL/L 22.0-26.0 N POC BASE EXCESS (test code = POCBEA) 0.9 MMOL/L -4.0-4.0 N POC O2 SATURATION (test code = POCO2S) 94.7 % 90-100 N ABG DELIVERY (test code = LYNDA) Cannula ABG TEMPERATURE (test code = TEMPA) 100.2 F ABG SITE (test code = SITEA) Art Line BENJAMIN'S TEST (test code = ALLENS) N/A BASIC METABOLIC [id number] 02:30:00* Test Item Value Reference Range Interpretation Comme nts SODIUM (test code = NA/ABG) 140 mmol/L 134-147 N POTASSIUM (test code = K/ABG) 4.7 mmol/L 3.4-5.0 N CHLORIDE (test code = CL/ABG) 104 mmol/L 100-108 N CREATININE ABG (test code = CREAABG) 0.7 mg/dL 0.6-1.0 POC IONIZED CALCIUM (test co de = POCCA) 1.27 MMOL/L 1.12-1.32 N POC GLUCOSE (test code = POCGLU) 115 MG/DL 70-110 H HEMOGLOBIN [id number] 02:30:00* Test Item Value Reference Range Interpretation Comme nts HEMOGLOBIN ABG (test code = HGB/ABG) 9.9 G/DL 11.0-15.0 L [id number] 02:30:00* Test Item Value Reference Range Interpretation Comme nts HEMATOCRIT (test code = HCT/ABG) 29 % 33.0-45.0 L POC LACTIC [id number] 02:30:00* Test Item Value Reference Range Interpretation Comme nts POC LACTIC ACID (test code = POCLAC) 1.0 mmol/l 0.9-1.7 N GLUCOSE [id number] 23:47:00* Test Item Value Reference Range Interpretation Comme nts GLUCOSE BEDSIDE (test code = GLUBED) 115 MG/DL 70-110 H Performed by cer tified incubator machine operator at [facility] POC ARTERIAL BLOOD [id number] 20:12:00* Test Item Value Reference Range Interpretation Comme nts POC ARTERIAL BLOOD GAS PH (t est code = POCPHA) 7.358 7.35-7.45 N POC ARTERIAL BLOOD GAS PCO2 (test code = TZRGPF3K) 44.4 mmHg 35.0-45 N POC TCO2 ARTERIAL (test code = POCTCO2) 26.2 POC ARTERIAL BLOOD GAS PO2 ( test code = QVOLT3D) 74.5 mmHg 80-100.0 L POC HCO3 ARTERIAL (test code = VJWJMH1P) 24.9 MMOL/L 22.0-26.0 N POC BASE EXCESS (test code = POCBEA) -0.5 MMOL/L -4.0-4.0 N POC O2 SATURATION (test code = POCO2S) 93.7 % 90-100 N ABG DELIVERY (test code = LYNDA) Cannula ABG TEMPERATURE (test code = TEMPA) 99.3 F ABG SITE (test code = SITEA) Art Line BENJAMIN'S TEST (test code = ALLENS) N/A BASIC METABOLIC [id number] 20:12:00* Test Item Value Reference Range Interpretation Comme nts SODIUM (test code = NA/ABG) 141 mmol/L 134-147 N POTASSIUM (test code = K/ABG) 4.5 mmol/L 3.4-5.0 N CHLORIDE (test code = CL/ABG) 108 mmol/L 100-108 N CREATININE ABG (test code = CREAABG) 0.5 mg/dL 0.6-1.0 L POC IONIZED CALCIUM (test co de = POCCA) 1.26 MMOL/L 1.12-1.32 N POC GLUCOSE (test code = POCGLU) 113 MG/DL 70-110 H HEMOGLOBIN [id number] 20:12:00* Test Item Value Reference Range Interpretation Comme nts HEMOGLOBIN ABG (test code = HGB/ABG) 10.9 G/DL 11.0-15.0 L [id number] 20:12:00* Test Item Value Reference Range Interpretation Comme nts HEMATOCRIT (test code = HCT/ABG) 32 % 33.0-45.0 L POC LACTIC [id number] 20:12:00* Test Item Value Reference Range Interpretation Comme nts POC LACTIC ACID (test code = POCLAC) 0.7 mmol/l 0.9-1.7 L POC ARTERIAL BLOOD [id number] 18:16:00* Test Item Value Reference Range Interpretation Comme nts POC ARTERIAL BLOOD GAS PH (t est code = POCPHA) 7.359 7.35-7.45 N POC ARTERIAL BLOOD GAS PCO2 (test code = [id number]) 43.5 mmHg 35.0-45 N POC TCO2 ARTERIAL (test code = POCTCO2) 25.8 POC ARTERIAL BLOOD GAS PO2 ( test code = VKITN8J) 95.8 mmHg 80-100.0 N POC HCO3 ARTERIAL (test code = [id number]) 24.5 MMOL/L 22.0-26.0 N POC BASE EXCESS (test code = POCBEA) -1.0 MMOL/L -4.0-4.0 N POC O2 SATURATION (test code = POCO2S) 97.1 % 90-100 N ABG DELIVERY (test code = LYNDA) Cannula ABG TEMPERATURE (test code = TEMPA) 98.8 F ABG SITE (test code = SITEA) Art Line BASIC METABOLIC [id number] 18:16:00* Test Item Value Reference Range Interpretation Comme nts SODIUM (test code = NA/ABG) 141 mmol/L 134-147 N POTASSIUM (test code = K/ABG) 4.6 mmol/L 3.4-5.0 N CHLORIDE (test code = CL/ABG) 108 mmol/L 100-108 N CREATININE ABG (test code = CREAABG) 0.5 mg/dL 0.6-1.0 L POC IONIZED CALCIUM (test co de = POCCA) 1.24 MMOL/L 1.12-1.32 N POC GLUCOSE (test code = POCGLU) 114 MG/DL 70-110 H HEMOGLOBIN [id number] 18:16:00* Test Item Value Reference Range Interpretation Comme nts HEMOGLOBIN ABG (test code = HGB/ABG) 10.8 G/DL 11.0-15.0 L [id number] 18:16:00* Test Item Value Reference Range Interpretation Comme nts HEMATOCRIT (test code = HCT/ABG) 32 % 33.0-45.0 L POC LACTIC [id number] 18:16:00* Test Item Value Reference Range Interpretation Comme nts POC LACTIC ACID (test code = POCLAC) 0.9 mmol/l 0.9-1.7 N POC ARTERIAL BLOOD [id number] 16:39:00* Test Item Value Reference Range Interpretation Comme nts POC ARTERIAL BLOOD GAS PH (t est code = POCPHA) 7.357 7.35-7.45 N POC ARTERIAL BLOOD GAS PCO2 (test code = SHZGOA1S) 41.4 mmHg 35.0-45 N POC TCO2 ARTERIAL (test code = POCTCO2) 24.6 POC ARTERIAL BLOOD GAS PO2 ( test code = WRXSC0B) 159.8 mmHg 80-100.0 H POC HCO3 ARTERIAL (test code = HABJZR0M) 23.3 MMOL/L 22.0-26.0 N POC BASE EXCESS (test code = POCBEA) -2.3 MMOL/L -4.0-4.0 N POC O2 SATURATION (test code = POCO2S) 99.4 % 90-100 N FIO2 (test code = FIO2A) 40 % PaO2/FiO2 (test code = [id number]) 399.50 mm/Hg ABG DELIVERY (test code = LYNDA) Adult Vent ABG VENT MODE (test code = MODEA) CPAP/PS ABG VENT RESP RATE (test cod e = RRA) 16 /MIN ABG PEEP (test code = PEEPA) 5 cmH2O ABG PRESSURE SUPPORT (test c ode = PSABG) 5 cmH2O ABG TEMPERATURE (test code = TEMPA) 98.2 F ABG SITE (test code = SITEA) Art Line BASIC METABOLIC [id number] 16:39:00* Test Item Value Reference Range Interpretation Comme nts SODIUM (test code = NA/ABG) 141 mmol/L 134-147 N POTASSIUM (test code = K/ABG) 4.4 mmol/L 3.4-5.0 N CHLORIDE (test code = CL/ABG) 109 mmol/L 100-108 H CREATININE ABG (test code = CREAABG) 0.5 mg/dL 0.6-1.0 L POC IONIZED CALCIUM (test co de = POCCA) 1.23 MMOL/L 1.12-1.32 N POC GLUCOSE (test code = POCGLU) 111 MG/DL 70-110 H HEMOGLOBIN [id number] 16:39:00* Test Item Value Reference Range Interpretation Comme nts HEMOGLOBIN ABG (test code = HGB/ABG) 11.5 G/DL 11.0-15.0 N [id number] 16:39:00* Test Item Value Reference Range Interpretation Comme nts HEMATOCRIT (test code = HCT/ABG) 34 % 33.0-45.0 N POC LACTIC [id number] 16:39:00* Test Item Value Reference Range Interpretation Comme nts POC LACTIC ACID (test code = POCLAC) 1.0 mmol/l 0.9-1.7 N BASIC METABOLIC [id number] 15:16:00* Test Item Value Reference Range Interpretation Comme nts SODIUM (test code = NA) 143 mEq/L 134-147 N POTASSIUM (test code = K) 4.2 mEq/L 3.4-5.0 N SPECIMEN SLIGHT HEMOLYZED.Results known to be adversely affected by hemolysis are: Potassium Magnesium LDH Phosphorus Previously reported result: 4.2 mEq/LEdited by: [email or web address] on 03/08/23:52961605/09/22 1516: K previously reported as: 4.2 mEq/L CHLORIDE (test code = CL) 111 mEq/L 100-108 H CARBON DIOXIDE (test code = CO2) 27 mEq/l 21-33 N ANION GAP (test code = GAP) 9 0-20 N GLUCOSE (test code = GLU) 120 mg/dL 77-141 N NOTE: NEW NORMAL RANGE BLOOD UREA NITROGEN (test code = BUN) 14 mg/dL 7-25 N NOTE: NEW NORM AL RANGE GLOMERULAR FILTRATION RATE (test code = GFR) 97.7 80-90 H The Glomerular Filtration Rate is a calculated parameterbased on serum Creatinine, patient age and sex. GFR valuesless than 60 mL/min/1.73 square meters are indicative ofChronic Kidney Disease. Values less than 15 mL/min/1.73square meters indicate Kidney failure. The calculation forGFR is based on the CKD-EPI (2020) calculation. This formulais race indifferent and is the recommended formula for GFRby the National Kidney Foundation for Adults.The GFR will not calculate if the sex is unknown or if thepatient's age is <18 years. CREATININE (test code = CREAT) 0.6 mg/dL 0.6-1.3 N CALCIUM (test code = CA) 8.4 mg/dL 8.0-10.5 N COMMENTS: On arrivalComment: On [id number] 15:16:00* Test Item Value Reference Range Interpretation Comme nts MAGNESIUM (test code = MAG) 2.83 mg/dL 1.6-2.6 H NOTE: NEW NORMAL RANGE COMMENTS: On arrivalComment: [facility] [id number] 15:05:00 * Test Item Value Reference Range Interpretation Comme nts POC ARTERIAL BLOOD GAS PH (t est code = POCPHA) 7.326 7.35-7.45 L POC ARTERIAL BLOOD GAS PCO2 (test code = AOKFAM8F) 47.7 mmHg 35.0-45 H POC TCO2 ARTERIAL (test code = POCTCO2) 26.6 POC ARTERIAL BLOOD GAS PO2 ( test code = CWKCY3E) 125.8 mmHg 80-100.0 H POC HCO3 ARTERIAL (test code = MCINTF8C) 25.1 MMOL/L 22.0-26.0 N POC BASE EXCESS (test code = POCBEA) -1.1 MMOL/L -4.0-4.0 N POC O2 SATURATION (test code = POCO2S) 98.6 % 90-100 N FIO2 (test code = FIO2A) 40 % PaO2/FiO2 (test code = YCB0BCO2) 314.50 mm/Hg ABG DELIVERY (test code = LYNDA) Adult Vent ABG VENT MODE (test code = MODEA) AC ABG VENT RESP RATE (test cod e = RRA) 20 /MIN ABG TIDAL VOLUME (test code = TVA) 410 ml ABG PEEP (test code = PEEPA) 5 cmH2O ABG TEMPERATURE (test code = TEMPA) 97.5 F ABG SITE (test code = SITEA) Art Line BASIC METABOLIC [id number] 15:05:00* Test Item Value Reference Range Interpretation Comme nts SODIUM (test code = NA/ABG) 142 mmol/L 134-147 N POTASSIUM (test code = K/ABG) 4.4 mmol/L 3.4-5.0 N CHLORIDE (test code = CL/ABG) 107 mmol/L 100-108 N CREATININE ABG (test code = CREAABG) 0.6 mg/dL 0.6-1.0 N POC IONIZED CALCIUM (test co de = POCCA) 1.32 MMOL/L 1.12-1.32 N POC GLUCOSE (test code = POCGLU) 108 MG/DL 70-110 N HEMOGLOBIN [id number] 15:05:00* Test Item Value Reference Range Interpretation Comme nts HEMOGLOBIN ABG (test code = HGB/ABG) 11.9 G/DL 11.0-15.0 N [id number] 15:05:00* Test Item Value Reference Range Interpretation Comme nts HEMATOCRIT (test code = HCT/ABG) 35 % 33.0-45.0 N POC LACTIC [id number] 15:05:00* Test Item Value Reference Range Interpretation Comme nts POC LACTIC ACID (test code = POCLAC) 1.4 mmol/l 0.9-1.7 N - XR CHEST 1 [id number] 15:03:00 [facility] : 1955 Sex: F FAX: Vijay Rivera MD [phone] [place]: St: ADM FAX: Svitlana Manuel MD [phone] FAX: Tamara Sandoval [facility] [phone] Name: SALINA LAFLEUR [facility] : 1955 Age/S: 67/F [address] [place] [address] Unit #: [id number] Loc: G.2204 [place] [address] Phys: Tamara Benavides Physic Acct: [id number] Dis Date: Status: ADM IN PHONE #: [phone] Exam Date: 03/08/20233 FAX #: [phone] Reason: Cardiac Surgery Post Op EXAMS: CPT CODE: [id number] XR CHEST 1 V 32207 Dictation location: C4. CHEST, FRONTAL VIEW HISTORY: Cardiac Surgery Post Op FINDINGS: Since 03/04/23, the patient is intubated with endotracheal tube in good position approximately 5 cm above the belem. Mediastinal drain is present. Right IJ Huron-Stef catheter likely in the main pulmonary artery near the outflow tract. Possible trace right pleural effusion. Minimal central vascular congestion. The heartsize is normal. Aortic valve replacement. Sternotomy wires. IMPRESSION: Endotracheal tube in good position. Right IJ Huron-Stef catheter probably in the proximal main pulmonary artery. Minimal centralvascular congestion. at 1503 Reported and signed by: Gauri Meeks M.D. CC: Vijay Woodruff MD; Svitlana Lui MD; Tamara Benavides Technologist: RT Dick(Nacho) Trnscrd Date/Time/By: 03/08/2023 (4250) : By: [email or web address] Orig Print D/T: S: 03/08/2023 (9301) PAGE 1 Signed ReportPROTHROMBIN [id number] 14:37:00* Test Item Value Reference Range Interpretation Comme nts PROTHROMBIN TIME PATIENT (test code = PTP) 12.6 SECONDS 9.3-12.9 N INTERNATIONAL NORMAL RATIO (test code = INR) 1.1 0.8-1.2 N TARGET INR BY INDICATION Indication INR1. Prophylaxis of venous thrombosis 2.0 - 3.0 (orthopedic surgery), Prophylaxis of venous thrombosis (other than high-risk surgery), Treatment of Deep Vein Thrombosis/Pulmonary Embolism, Prevention of systemic embolism - Tissue heart valves, Acute Myocardial Infarction (to prevent systemic embolism), Valvular heart disease, Atrial Fibrillation, Bileaflet mechanical valve in aortic position.2. Mechanical prosthetic valves (high risk), 2.5 - 3.5 Presence of Lupus Anticoagulant or Antiphospholipid Antibodies, Prevention of systemic embolism - Acute Myocardial Infarction (to prevent recurrent infarct). COMMENTS: On arrivalTHROMBOPLASTIN TIME [id number] 14:37:00* Test Item Value Reference Range Interpretation Comme nts THROMBOPLASTIN TIME PARTIAL (test code = PTT) 28.9 Seconds 25.0-39.5 N Therapeutic Rang e: 50.4 - 88.3 Seconds Effective 07/12/2018 COMMENTS: On arrivalCBC W/AUTO [id number] 14:26:00* Test Item Value Reference Range Interpretation Comme nts WHITE BLOOD CELL (test code = WBC) 15.3 x10 3/uL 4.5-11.0 H RED BLOOD CELL (test code = RBC) 3.51 x10 6/uL 3.54-5.02 L HEMOGLOBIN (test code = HGB) 11.2 g/dL 11.0-15.0 N HEMATOCRIT (test code = HCT) 34.1 % 33.0-45.0 N MEAN CELL VOLUME (test code = MCV) 97.2 fL 81.0-99.0 N MEAN CELL HGB (test code = MCH) 31.9 pg 27.0-33.0 N MEAN CELL HGB CONCETRATION (test code = MCHC) 32.8 g/dL 33.0-37.0 L RED CELL DISTRIBUTION WIDTH CV (test code = RDW) 14.5 % 11.5-14.5 N RED CELL DISTRIBUTION WIDTH SD (test code = RDW-SD) 51.9 fL 37.0-54.0 N PLATELET COUNT (test code = PLT) 186 x10 3/uL 150-400 N MEAN PLATELET VOLUME (test code = MPV) 8.9 fL 7.0-9.0 N NEUTROPHIL % (test code = NT%) 82.7 % 56.0-77.0 H IMMATURE GRANULOCYTE % (test code = IG%) 0.8 % 0.0-2.0 N LYMPHOCYTE % (test code = LY%) 13.0 % 14.0-32.0 L MONOCYTE % (test code = MO%) 2.6 % 4.8-9.0 L EOSINOPHIL % (test code = EO%) 0.7 % 0.3-3.7 N BASOPHIL % (test code = BA%) 0.2 % 0.0-2.0 N NUCLEATED RBC % (test code = NRBC%) 0.0 % 0-0 N NEUTROPHIL # (test code = NT#) 12.62 x10 3/uL 2.0-7.6 H IMMATURE GRANULOCYTE # (test code = IG#) 0.12 x10 3/uL 0.00-0.03 H LYMPHOCYTE # (test code = LY#) 1.98 x10 3/uL 1.0-3.8 N MONOCYTE # (test code = MO#) 0.40 x10 3/uL 0.1-0.8 N EOSINOPHIL # (test code = EO#) 0.10 x10 3/uL 0.0-0.2 N BASOPHIL # (test code = BA#) 0.03 x10 3/uL 0.0-0.2 N NUCLEATED RBC # (test code = NRBC#) 0.00 x10 3/uL 0.0-0.1 N COMMENTS: [facility] [id number] 14:11:00* Test Item Value Reference Range Interpretation Comme nts POC ARTERIAL BLOOD GAS PH (t est code = POCPHA) 7.331 7.35-7.45 L POC ARTERIAL BLOOD GAS PCO2 (test code = ECKRNJ7L) 47.5 mmHg 35.0-45 H POC TCO2 ARTERIAL (test code = POCTCO2) 26.6 POC ARTERIAL BLOOD GAS PO2 ( test code = AUELL6M) 133.4 mmHg 80-100.0 H POC HCO3 ARTERIAL (test code = TZAJNK6T) 25.2 MMOL/L 22.0-26.0 N POC BASE EXCESS (test code = POCBEA) -0.8 MMOL/L -4.0-4.0 N POC O2 SATURATION (test code = POCO2S) 98.8 % 90-100 N FIO2 (test code = FIO2A) 50 % PaO2/FiO2 (test code = SPM3AUZ5) 266.80 mm/Hg ABG DELIVERY (test code = LYNDA) Adult Vent ABG VENT MODE (test code = MODEA) AC ABG VENT RESP RATE (test cod e = RRA) 20 /MIN ABG TIDAL VOLUME (test code = TVA) 380 ml ABG PEEP (test code = PEEPA) 5 cmH2O ABG TEMPERATURE (test code = TEMPA) 98 F ABG SITE (test code = SITEA) Art Line BENJAMIN'S TEST (test code = ALLENS) N/A BASIC METABOLIC [id number] 14:11:00* Test Item Value Reference Range Interpretation Comme nts SODIUM (test code = NA/ABG) 143 mmol/L 134-147 N POTASSIUM (test code = K/ABG) 4.1 mmol/L 3.4-5.0 N CHLORIDE (test code = CL/ABG) 112 mmol/L 100-108 H CREATININE ABG (test code = CREAABG) 0.5 mg/dL 0.6-1.0 L POC IONIZED CALCIUM (test co de = POCCA) 1.34 MMOL/L 1.12-1.32 H POC GLUCOSE (test code = POCGLU) 118 MG/DL 70-110 H HEMOGLOBIN [id number] 14:11:00* Test Item Value Reference Range Interpretation Comme nts HEMOGLOBIN ABG (test code = HGB/ABG) 11.9 G/DL 11.0-15.0 N [id number] 14:11:00* Test Item Value Reference Range Interpretation Comme nts HEMATOCRIT (test code = HCT/ABG) 35 % 33.0-45.0 N POC ARTERIAL BLOOD [id number] 13:29:00* Test Item Value Reference Range Interpretation Comme nts POC ARTERIAL BLOOD GAS PH (t est code = POCPHA) 7.286 7.35-7.45 LL POC ARTERIAL BLOOD GAS PCO2 (test code = TRENRP4R) 55.7 mmHg 35.0-45 HH POC TCO2 ARTERIAL (test code = POCTCO2) 28.3 POC ARTERIAL BLOOD GAS PO2 ( test code = STNJN1Q) 410.5 mmHg 80-100.0 HH POC HCO3 ARTERIAL (test code = CTINNF7Q) 26.5 MMOL/L 22.0-26.0 H POC BASE EXCESS (test code = POCBEA) -0.8 MMOL/L -4.0-4.0 N POC O2 SATURATION (test code = POCO2S) 100.0 % 90-100 N BASIC METABOLIC [id number] 13:29:00* Test Item Value Reference Range Interpretation Comme nts SODIUM (test code = NA/ABG) 143 mmol/L 134-147 N POTASSIUM (test code = K/ABG) 4.0 mmol/L 3.4-5.0 N CHLORIDE (test code = CL/ABG) 109 mmol/L 100-108 H CREATININE ABG (test code = CREAABG) 0.5 mg/dL 0.6-1.0 L POC IONIZED CALCIUM (test co de = POCCA) 1.30 MMOL/L 1.12-1.32 N POC GLUCOSE (test code = POCGLU) 111 MG/DL 70-110 H HEMOGLOBIN [id number] 13:29:00* Test Item Value Reference Range Interpretation Comme nts HEMOGLOBIN ABG (test code = HGB/ABG) 10.8 G/DL 11.0-15.0 L [id number] 13:29:00* Test Item Value Reference Range Interpretation Comme nts HEMATOCRIT (test code = HCT/ABG) 32 % 33.0-45.0 L POC LACTIC [id number] 13:29:00* Test Item Value Reference Range Interpretation Comme nts POC LACTIC ACID (test code = POCLAC) 0.8 mmol/l 0.9-1.7 L [id number] 13:22:00* Test Item Value Reference Range Interpretation Comme nts ACT-ISTAT (test code = ACTI) 152 SEC 74-137 H Performed by cer tified incubator machine operator at [facility] POC ARTERIAL BLOOD [id number] 13:20:00* Test Item Value Reference Range Interpretation Comme nts POC ARTERIAL BLOOD GAS PH (t est code = POCPHA) 7.134 7.35-7.45 LL POC ARTERIAL BLOOD GAS PCO2 (test code = DIVLKA4L) 41.9 mmHg 35.0-45 N POC TCO2 ARTERIAL (test code = POCTCO2) 15.3 POC ARTERIAL BLOOD GAS PO2 ( test code = OGAUY1Q) 313.9 mmHg 80-100.0 HH POC HCO3 ARTERIAL (test code = NCQDDF9Z) 14.1 MMOL/L 22.0-26.0 LL POC BASE EXCESS (test code = POCBEA) -14.3 MMOL/L -4.0-4.0 L POC O2 SATURATION (test code = POCO2S) 99.8 % 90-100 N BASIC METABOLIC [id number] 13:20:00* Test Item Value Reference Range Interpretation Comme nts SODIUM (test code = NA/ABG) 149 mmol/L 134-147 H POTASSIUM (test code = K/ABG) 4.1 mmol/L 3.4-5.0 N CHLORIDE (test code = CL/ABG) 110 mmol/L 100-108 H CREATININE ABG (test code = CREAABG) 0.5 mg/dL 0.6-1.0 L POC IONIZED CALCIUM (test co de = POCCA) 1.25 MMOL/L 1.12-1.32 N POC GLUCOSE (test code = POCGLU) 120 MG/DL 70-110 H HEMOGLOBIN [id number] 13:20:00* Test Item Value Reference Range Interpretation Comme nts HEMOGLOBIN ABG (test code = HGB/ABG) 10.8 G/DL 11.0-15.0 L [id number] 13:20:00* Test Item Value Reference Range Interpretation Comme nts HEMATOCRIT (test code = HCT/ABG) 32 % 33.0-45.0 L POC LACTIC [id number] 13:20:00* Test Item Value Reference Range Interpretation Comme nts POC LACTIC ACID (test code = POCLAC) 0.8 mmol/l 0.9-1.7 L [id number] 12:49:00* Test Item Value Reference Range Interpretation Comme nts ACT-ISTAT (test code = ACTI) 585 SEC 74-137 H Performed by cer tified incubator machine operator at [facility] POC ARTERIAL BLOOD [id number] 12:38:00* Test Item Value Reference Range Interpretation Comme nts POC ARTERIAL BLOOD GAS PH (t est code = POCPHA) 7.449 7.35-7.45 N POC ARTERIAL BLOOD GAS PCO2 (test code = GGZSZL4T) 39.6 mmHg 35.0-45 N POC TCO2 ARTERIAL (test code = POCTCO2) 28.7 POC ARTERIAL BLOOD GAS PO2 ( test code = WLQQQ7N) 432.2 mmHg 80-100.0 HH POC HCO3 ARTERIAL (test code = YIKOKE0P) 27.4 MMOL/L 22.0-26.0 H POC BASE EXCESS (test code = POCBEA) 3.2 MMOL/L -4.0-4.0 N POC O2 SATURATION (test code = POCO2S) 100.0 % 90-100 N BASIC METABOLIC [id number] 12:38:00* Test Item Value Reference Range Interpretation Comme nts SODIUM (test code = NA/ABG) 139 mmol/L 134-147 N POTASSIUM (test code = K/ABG) 4.9 mmol/L 3.4-5.0 N CHLORIDE (test code = CL/ABG) 105 mmol/L 100-108 N CREATININE ABG (test code = CREAABG) 0.5 mg/dL 0.6-1.0 L POC IONIZED CALCIUM (test co de = POCCA) 1.52 MMOL/L 1.12-1.32 H POC GLUCOSE (test code = POCGLU) 114 MG/DL 70-110 H HEMOGLOBIN [id number] 12:38:00* Test Item Value Reference Range Interpretation Comme nts HEMOGLOBIN ABG (test code = HGB/ABG) 9.6 G/DL 11.0-15.0 L [id number] 12:38:00* Test Item Value Reference Range Interpretation Comme nts HEMATOCRIT (test code = HCT/ABG) 28 % 33.0-45.0 L POC LACTIC [id number] 12:38:00* Test Item Value Reference Range Interpretation Comme nts POC LACTIC ACID (test code = POCLAC) 0.6 mmol/l 0.9-1.7 L [id number] 12:16:00* Test Item Value Reference Range Interpretation Comme nts ACT-ISTAT (test code = ACTI) 682 SEC 74-137 H Performed by cer tified incubator machine operator at [facility] POC ARTERIAL BLOOD [id number] 12:03:00* Test Item Value Reference Range Interpretation Comme nts POC ARTERIAL BLOOD GAS PH (t est code = POCPHA) 7.433 7.35-7.45 N POC ARTERIAL BLOOD GAS PCO2 (test code = FCDTQP2E) 41.7 mmHg 35.0-45 N POC TCO2 ARTERIAL (test code = POCTCO2) 29.1 POC ARTERIAL BLOOD GAS PO2 ( test code = DYWLG9O) 401.9 mmHg 80-100.0 HH POC HCO3 ARTERIAL (test code = HYWGYP7G) 27.9 MMOL/L 22.0-26.0 H POC BASE EXCESS (test code = POCBEA) 3.2 MMOL/L -4.0-4.0 N POC O2 SATURATION (test code = POCO2S) 100.0 % 90-100 N BASIC METABOLIC [id number] 12:03:00* Test Item Value Reference Range Interpretation Comme nts SODIUM (test code = NA/ABG) 140 mmol/L 134-147 N POTASSIUM (test code = K/ABG) 5.1 mmol/L 3.4-5.0 H CHLORIDE (test code = CL/ABG) 106 mmol/L 100-108 N CREATININE ABG (test code = CREAABG) 0.5 mg/dL 0.6-1.0 L POC IONIZED CALCIUM (test co de = POCCA) 1.17 MMOL/L 1.12-1.32 N POC GLUCOSE (test code = POCGLU) 116 MG/DL 70-110 H HEMOGLOBIN [id number] 12:03:00* Test Item Value Reference Range Interpretation Comme nts HEMOGLOBIN ABG (test code = HGB/ABG) 10.0 G/DL 11.0-15.0 L [id number] 12:03:00* Test Item Value Reference Range Interpretation Comme nts HEMATOCRIT (test code = HCT/ABG) 29 % 33.0-45.0 L POC LACTIC [id number] 12:03:00* Test Item Value Reference Range Interpretation Comme nts POC LACTIC ACID (test code = POCLAC) < 0.3 mmol/l 0.9-1.7 L [id number] 11:39:00* Test Item Value Reference Range Interpretation Comme nts ACT-ISTAT (test code = ACTI) 531 SEC 74-137 H Performed by cer tified incubator machine operator at [facility] POC ARTERIAL BLOOD [id number] 11:29:00* Test Item Value Reference Range Interpretation Comme nts POC ARTERIAL BLOOD GAS PH (t est code = POCPHA) 7.436 7.35-7.45 N POC ARTERIAL BLOOD GAS PCO2 (test code = LRRHEP6Z) 40.2 mmHg 35.0-45 N POC TCO2 ARTERIAL (test code = POCTCO2) 28.3 POC ARTERIAL BLOOD GAS PO2 ( test code = OFKQE2L) 461.0 mmHg 80-100.0 HH POC HCO3 ARTERIAL (test code = MCJCNZ8G) 27.1 MMOL/L 22.0-26.0 H POC BASE EXCESS (test code = POCBEA) 2.6 MMOL/L -4.0-4.0 N POC O2 SATURATION (test code = POCO2S) 100.0 % 90-100 N BASIC METABOLIC [id number] 11:29:00* Test Item Value Reference Range Interpretation Comme nts SODIUM (test code = NA/ABG) 138 mmol/L 134-147 N POTASSIUM (test code = K/ABG) 5.1 mmol/L 3.4-5.0 H CHLORIDE (test code = CL/ABG) 104 mmol/L 100-108 N CREATININE ABG (test code = CREAABG) 0.4 mg/dL 0.6-1.0 L POC IONIZED CALCIUM (test co de = POCCA) 1.08 MMOL/L 1.12-1.32 L POC GLUCOSE (test code = POCGLU) 109 MG/DL 70-110 N HEMOGLOBIN [id number] 11:29:00* Test Item Value Reference Range Interpretation Comme nts HEMOGLOBIN ABG (test code = HGB/ABG) 9.9 G/DL 11.0-15.0 L [id number] 11:29:00* Test Item Value Reference Range Interpretation Comme nts HEMATOCRIT (test code = HCT/ABG) 29 % 33.0-45.0 L POC LACTIC [id number] 11:29:00* Test Item Value Reference Range Interpretation Comme nts POC LACTIC ACID (test code = POCLAC) < 0.3 mmol/l 0.9-1.7 L [id number] 11:14:00* Test Item Value Reference Range Interpretation Comme nts ACT-ISTAT (test code = ACTI) 428 SEC 74-137 H Performed by cer tified incubator machine operator at [facility] POC ARTERIAL BLOOD [id number] 11:07:00* Test Item Value Reference Range Interpretation Comme nts POC ARTERIAL BLOOD GAS PH (t est code = POCPHA) 7.364 7.35-7.45 N POC ARTERIAL BLOOD GAS PCO2 (test code = QTUEOL5Q) 40.5 mmHg 35.0-45 N POC TCO2 ARTERIAL (test code = POCTCO2) 24.3 POC ARTERIAL BLOOD GAS PO2 ( test code = TAWNR8D) 492.2 mmHg 80-100.0 HH POC HCO3 ARTERIAL (test code = DWUEJO8G) 23.1 MMOL/L 22.0-26.0 N POC BASE EXCESS (test code = POCBEA) -2.1 MMOL/L -4.0-4.0 N POC O2 SATURATION (test code = POCO2S) 100.0 % 90-100 N BASIC METABOLIC [id number] 11:07:00* Test Item Value Reference Range Interpretation Comme nts SODIUM (test code = NA/ABG) 141 mmol/L 134-147 N POTASSIUM (test code = K/ABG) 3.9 mmol/L 3.4-5.0 N CHLORIDE (test code = CL/ABG) 108 mmol/L 100-108 N CREATININE ABG (test code = CREAABG) 0.4 mg/dL 0.6-1.0 L POC IONIZED CALCIUM (test co de = POCCA) 1.20 MMOL/L 1.12-1.32 N POC GLUCOSE (test code = POCGLU) 101 MG/DL 70-110 N HEMOGLOBIN [id number] 11:07:00* Test Item Value Reference Range Interpretation Comme nts HEMOGLOBIN ABG (test code = HGB/ABG) 10.9 G/DL 11.0-15.0 L [id number] 11:07:00* Test Item Value Reference Range Interpretation Comme nts HEMATOCRIT (test code = HCT/ABG) 32 % 33.0-45.0 L POC LACTIC [id number] 11:07:00* Test Item Value Reference Range Interpretation Comme nts POC LACTIC ACID (test code = POCLAC) < 0.3 mmol/l 0.9-1.7 L [id number] 10:47:00* Test Item Value Reference Range Interpretation Comme nts ACT-ISTAT (test code = ACTI) 136 SEC 74-137 N Performed by cer tified incubator machine operator at [facility] POC ARTERIAL BLOOD [id number] 10:36:00* Test Item Value Reference Range Interpretation Comme nts POC ARTERIAL BLOOD GAS PH (t est code = POCPHA) 7.368 7.35-7.45 N POC ARTERIAL BLOOD GAS PCO2 (test code = NCHPBD6G) 45.6 mmHg 35.0-45 H POC TCO2 ARTERIAL (test code = POCTCO2) 27.6 POC ARTERIAL BLOOD GAS PO2 ( test code = PDJUF0T) 491.2 mmHg 80-100.0 HH POC HCO3 ARTERIAL (test code = FVWOHJ5L) 26.2 MMOL/L 22.0-26.0 H POC BASE EXCESS (test code = POCBEA) 0.5 MMOL/L -4.0-4.0 N POC O2 SATURATION (test code = POCO2S) 100.0 % 90-100 N BASIC METABOLIC [id number] 10:36:00* Test Item Value Reference Range Interpretation Comme nts SODIUM (test code = NA/ABG) 142 mmol/L 134-147 N POTASSIUM (test code = K/ABG) 4.4 mmol/L 3.4-5.0 N CHLORIDE (test code = CL/ABG) 106 mmol/L 100-108 N CREATININE ABG (test code = CREAABG) 0.4 mg/dL 0.6-1.0 L POC IONIZED CALCIUM (test co de = POCCA) 1.26 MMOL/L 1.12-1.32 N POC GLUCOSE (test code = POCGLU) 92 MG/DL 70-110 N HEMOGLOBIN [id number] 10:36:00* Test Item Value Reference Range Interpretation Comme nts HEMOGLOBIN ABG (test code = HGB/ABG) 12.4 G/DL 11.0-15.0 N [id number] 10:36:00* Test Item Value Reference Range Interpretation Comme nts HEMATOCRIT (test code = HCT/ABG) 37 % 33.0-45.0 N POC LACTIC [id number] 10:36:00* Test Item Value Reference Range Interpretation Comme nts POC LACTIC ACID (test code = POCLAC) < 0.3 mmol/l 0.9-1.7 L - CT CHEST W/O [id number] 10:07:00 [facility] 1955 Sex: F Name: SALINA LAFLEUR [facility] : 1955 Age/S: 67 / F [address] Unit #: [id number] Loc: [place] [address] Phys: Svitlana Lui MD Acct: [id number] Dis Date: Status: PRE IN PHONE #: [phone] Exam Date: 03/04/2023 1510 FAX #: [phone] Reason: MITRAL VALVE REGURGITATION,AORTIC STENO EXAMS: CPT CODE: [id number] CT CHEST W/O CONTRAST [address] CT CHESTWITHOUT IV CONTRAST INDICATION: Mitral valve regurgitation, aortic stenosis COMPARISON: None available TECHNIQUE: Axial images with multiplanar reformatted images were obtained from the thoracic inlet to the mid abdomen without the administration of contrast. FINDINGS: Lack of intravenous contrastlimits evaluation of vascular and solid organ structures LOWER CERVICAL: 1.2 cm right thyroid nodule. No supraclavicular lymphadenopathy. LUNGS: Right middle lobe calcified granuloma. Left upper lobecalcified granuloma. There is right lower lobe atelectasis and right middle lobe scarring/atelectasis. No consolidation, pleural effusion, or pneumothorax. MEDIASTINUM: No cardiomegaly. No pericardial effusion. There are aortic valvular calcifications. There are coronary artery calcifications. Trach ea is midline. Esophagus is nondistended. VESSELS: Main pulmonary artery is normal in size. Pulmonary veins are unremarkable. Thoracic aorta is normal in size and caliber with mild atherosclerotic calcifications. LYMPH NODES: PAGE 1 Signed Report (CONTINUED) Name: SALINA LAFLEUR [facility] : 1955 Age/S: 67 / F [address] [place] [address] Blvd Unit #: [id number] Loc: [place], [place] [address]Lamt: Svitlana Lui MD Acct: [id number] Dis Date: Status: PRE IN PHONE #: [phone] Exam Date: 03/04/2023 1510 FAX #: [phone] Reason: MITRAL VALVE REGURGITATION,AORTIC STENO EXAMS: CPTCODE: [id number] CT CHEST W/O CONTRAST 90508 (Continued) No mediastinal or hilar lymphadenopathy. CHEST WALL: Degenerative changes of the thoracic spine. Diffuse increased sclerosis of the T2 vertebral body may be related to chronic degenerative changes. No acute osseous abnormality. UPPER ABDOMEN:Unchanged mild nodularity of the right adrenal gland. IMPRESSION: No pleural effusion, consolidation, or pneumothorax. Diffuse increased sclerosis of the T2 vertebral body is likely related to degenerative changes. Malignancy is considered less likely. An MRI can be performed for further evaluation. 1.2 cm right thyroid nodule. Right adrenal nodularity unchanged from prior. LOCATION: C4 at 1007 Reported and signed by: Citlaly Spivey M.D. CC: Vijay Woodruff MD; Svitlana Lui MD Technologist:RT Duane(R); Ck CTDI: DLP: Trnscb Date/Time: 03/05/2023 (1007) [email or web address] Orig Print D/T: S: 03/05/2023 (1010) PAGE 2 Signed Report- DUP EXTRACRANIAL GEORGE 2023-03-04 15:33:00 [facility] 1955 Sex: F Name: SALINA LAFLEUR [facility] : 1955 Age/S: 67 / F [address] [place] [address] Unit #: [id number] Loc: [place] [address] Phys: Svitlana Lui MD Acct: [id number] Dis Date: Status: PRE IN PHONE #: [phone] Exam Date: 03/04/2023 1510 FAX #: [phone] Reason: MITRAL VALVE REGURGITATION,AORTIC STENO EXAMS: CPT CODE: [id number] DUP EXTRACRANIAL GEORGE 35701 EXAM: - DUP EXTRACRANIAL GEORGE LOCATION: H65 HISTORY: MITRAL VALVE REGURGITATION,AORTIC STENO TECHNIQUE: Grayscale real-time B-mode imaging with spectral and color flow Doppler analysis was performed of the neck to evaluate the extracranial carotid system. COMPARISON: None available. FINDINGS: Peak systolic velocities: Right CCA: 66.4 cm/s Right ICA: 80.9 cm/s Right ECA: 49.4 cm/s Left CCA: 69.8 cm/s Left ICA: 103.2 cm/s Left ECA: 82.8 cm/s Right IC/CC ratio: 1.2 Left IC/CC ratio: 1.5 Mild scattered atherosclerotic plaque without hemodynamically significant stenosis. Antegrade flow seen in both vertebralarteries. IMPRESSION: No hemodynamically significant stenosis (greater than 50%) within the extracra nial internal carotid arteries. NOTE: Degree of stenosis is based on velocity criteria as defined by the Society of Radiologists in Ultrasound Consensus Conference Radiology 2003. at 1533 Reported and signed by: Desmond Price D.O. PAGE 1 Signed Report (CONTINUED) Name: SALINA LAFLEUR [facility] : 1955 Age/S: 67 /F [address] [place] [address] Blvd Unit #: [id number] Loc: [place] [address] Phys: Svitlana Lui MD Acct:[id number] Dis Date: Status: PRE IN PHONE #: [phone] Exam Date: 03/04/2023 1510 FAX #: [phone] Reason: MITRAL VALVE REGURGITATION,AORTIC STENO EXAMS: CPT CODE: [id number] DUP EXTRACRANIAL GEORGE 57916 (Continued) CC: Vijay Woodruff MD; Svitlana Lui MD Technologist: Rere Iglesias RDMS() Trnscb Date/Time: 03/04/2023 (1533) [email or web address] Orig Print D/T: S: 03/04/2023 (1536) Probe: PAGE 2 Signed ReportUA RFLX MICR CULT IF INDICATED 2023-03-04 14:21:00* Test Item Value Reference Range Interpretation Comme nts UA COLOR (test code = COLU) YELLOW YEL/STRAW UA APPEARANCE (test code = APPU) SL CLOUDY CLEAR UA GLUCOSE DIPSTICK (test co de = DGLUU) NEGATIVE NEGATIVE UA BILIRUBIN DIPSTICK (test code = BILU) NEGATIVE NEGATIVE UA KETONE DIPSTICK (test cod e = KETU) NEGATIVE NEGATIVE UA SPECIFIC GRAVITY (test co de = SGU) 1.023 1.005-1.030 N UA BLOOD DIPSTICK (test code = KALA) NEGATIVE NEGATIVE UA PH DIPSTICK (test code = JEROME) 7.0 5.0-7.0 N UA PROTEIN DIPSTICK (test co de = PROU) NEGATIVE NEGATIVE UA UROBILINIOGEN DIPSTICK (t est code = URO) 0.2 mg/dL 0.2-1.0 UA NITRITE DIPSTICK (test co de = AMRI) NEGATIVE NEGATIVE UA LEUKOCYTE ESTERASE DIPSTI CK (test code = LEUU) NEGATIVE NEGATIVE UA WBC (test code = WBCU) 0-3 WBC/HPF 0-3 UA RBC (test code = RBCU) 0-3 RBC/HPF 0-3 UA WBC NO REFLEX (test code = WBCUCL) 0-3 WBC/HPF 0-3 UA BACTERIA (test code = BACU) TRACE /HPF NONE SEEN UA SQUAMOUS CELLS (test code = SQU) 0-5 /HPF NONE SEEN UA MUCUS (test code = MUCU) TRACE /LPF NONE SEEN UA AMORPHOUS SEDIMENT (test code = AMORU) TRACE /HPF NONE UA YEAST (BUDDING) (test cod e = YEASTUBD) TRACE /HPF NONE Indication for culture: RiskForSepsis-no oth srcSpecimen Description: CLEAN CATCHPOC ARTERIAL BLOOD [id number] 13:30:00* Test Item Value Reference Range Interpretation Comme nts POC ARTERIAL BLOOD GAS PH (t est code = POCPHA) 7.450 7.35-7.45 N POC ARTERIAL BLOOD GAS PCO2 (test code = YQARYW8H) 38.0 mmHg 35.0-45 N POC TCO2 ARTERIAL (test code = POCTCO2) 27.6 POC ARTERIAL BLOOD GAS PO2 ( test code = WVSQV3I) 80.6 mmHg 80-100.0 N POC HCO3 ARTERIAL (test code = JFFMZL3B) 26.4 MMOL/L 22.0-26.0 H POC BASE EXCESS (test code = POCBEA) 2.4 MMOL/L -4.0-4.0 N POC O2 SATURATION (test code = POCO2S) 96.4 % 90-100 N FIO2 (test code = FIO2A) 21.0 % PaO2/FiO2 (test code = YBB2JGE5) 383.80 mm/Hg ABG TEMPERATURE (test code = TEMPA) 98.6 F ABG SITE (test code = SITEA) L Radial BENJAMIN'S TEST (test code = ALLENS) Positive - XR CHEST 2 [id number] 13:28:00 [facility] 1955 Sex: F FAX: Vijay Rivera MD [phone] [place]: St: PRE FAX: Svitlana Manuel MD [phone] Name: SALINA LAFLEUR [facility] : 1955 Age/S: 67/F [address] [place] [address] Unit #: [id number]: [place] [address] Phys: Svitlana Lui MD Acct: [id number] Dis Date: Status: PRE IN PHONE #: [phone] Exam Date: 03/04/2023 1240 FAX #: [phone] Reason: PREOP EXAMS: CPT CODE:[id number] XR CHEST 2 V 21693 EXAM: - XR CHEST 2 V CLINICAL HISTORY: PREOP TECHNIQUE: Frontal and Lateral views. COMPARISON: Chest radiograph 01/27/2023, 07/03/2013. LOCATION: H65 FINDINGS: The trachea appears normal. The mediastinum and cardiac silhouette are within normal limits for size. No confluent airspace opacities identified. No pleural effusions. Visualized soft tissues and osseous structures are grossly unremarkable. IMPRESSION: No acute cardiopulmonary process. at 1328 Reported and signed by: Desmond Price D.O. CC: Vijay Woodruff MD; Svitlana Lui MD Technologist: AMY Del Toro) Trnscrd Date/Time/By: 03/04/2023 (4933) : By: [email or web address] Orig Print D/T: S: 03/04/2023 (4710) PAGE 1 Signed ReportCOMPREHENSIVE METABOLIC [id number] 13:15:00* Test Item Value Reference Range Interpretation Comme nts SODIUM (test code = NA) 139 mEq/L 134-147 N POTASSIUM (test code = K) 4.3 mEq/L 3.4-5.0 N CHLORIDE (test code = CL) 104 mEq/L 100-108 N CARBON DIOXIDE (test code = CO2) 28 mEq/l 21-33 N ANION GAP (test code = GAP) 11 0-20 N GLUCOSE (test code = GLU) 104 mg/dL 77-141 N NOTE: NEW NORMAL RANGE BLOOD UREA NITROGEN (test code = BUN) 19 mg/dL 7-25 N NOTE: NEW NORM AL RANGE GLOMERULAR FILTRATION RATE (test code = GFR) 94.2 80-90 H The Glomerular Filtration Rate is a calculated parameterbased on serum Creatinine, patient age and sex. GFR valuesless than 60 mL/min/1.73 square meters are indicative ofChronic Kidney Disease. Values less than 15 mL/min/1.73square meters indicate Kidney failure. The calculation forGFR is based on the CKD-EPI (2020) calculation. This formulais race indifferent and is the recommended formula for GFRby the National Kidney Foundation for Adults.The GFR will not calculate if the sex is unknown or if thepatient's age is <18 years. CREATININE (test code = CREAT) 0.7 mg/dL 0.6-1.3 N TOTAL PROTEIN (test code = PROT) 6.7 g/dL 6.4-8.2 N ALBUMIN (test code = ALB) 3.80 g/dL 3.4-5.0 N CALCIUM (test code = CA) 9.7 mg/dL 8.0-10.5 N BILIRUBIN TOTAL (test code = BILT) 0.30 mg/dL 0.0-1.0 N SGOT/AST (test code = AST) 21 IUnit/L 8-34 N NOTE: NEW NORMAL RANGE SGPT/ALT (test code = ALT) 14 IUnit/L 10-49 N NOTE: NEW NORMAL RANGE ALKALINE PHOSPHATASE TOTAL (test code = ALKP) 76 IUnit/L 20-125 N B-TYPE NATRIURETIC [id number] 13:13:00* Test Item Value Reference Range Interpretation Comme nts B-TYPE NATRIURETIC PEPTIDE ( test code = BNP) 94.0 PG/ML 0-100 N COVID 19 Asymptomatic IH [id number] 13:07:00* Test Item Value Reference Range Interpretation Comme nts COVID 19 Asymptomatic IH AG (test code = COVNONPUIAG) Negative Negative A negative resul t is presumptive and should be confirmedwith an FDA authorized molecular assay, if necessary forpatient management.A positive result does not rule out co-infections withother pathogens.This test detects both viable (live) and non-viable,SARS-CoV, and SARS-CoV-2. Test performance depends on theamount of virus (antigen) in the sample.This test has not been FDA cleared or approved; the test hasbeen authorized by FDA under an Emergency Use Authorization(EUA) for use by laboratories certified under the CLIA thatmeet the requirements to perform moderate, high or waivedcomplexity tests. PROTHROMBIN [id number] 13:05:00* Test Item Value Reference Range Interpretation Comme [facility] PROTHROMBIN TIME PATIENT (test code = PTP) 10.4 SECONDS 9.3-12.9 N INTERNATIONAL NORMAL RATIO (test code = INR) 0.9 0.8-1.2 N TARGET INR BY INDICATION Indication INR1. Prophylaxis of venous thrombosis 2.0 - 3.0 (orthopedic surgery), Prophylaxis of venous thrombosis (other than high-risk surgery), Treatment of Deep Vein Thrombosis/Pulmonary Embolism, Prevention of systemic embolism - Tissue heart valves, Acute Myocardial Infarction (to prevent systemic embolism), Valvular heart disease, Atrial Fibrillation, Bileaflet mechanical valve in aortic position.2. Mechanical prosthetic valves (high risk), 2.5 - 3.5 Presence of Lupus Anticoagulant or Antiphospholipid Antibodies, Prevention of systemic embolism - Acute Myocardial Infarction (to prevent recurrent infarct). THROMBOPLASTIN TIME [id number] 13:05:00* Test Item Value Reference Range Interpretation Comme nts THROMBOPLASTIN TIME PARTIAL (test code = PTT) 33.0 Seconds 25.0-39.5 N Therapeutic Rang e: 50.4 - 88.3 Seconds Effective 07/12/2018 [id number]%2023-03-04 13:04:00* Test Item Value Reference Range Interpretation Comme nts HGBA1C% (test code = HGBA1C%) 4.8 %A1C 4.8-6.0 N CBC W/AUTO [id number] 12:48:00* Test Item Value Reference Range Interpretation Comme nts WHITE BLOOD CELL (test code = WBC) 6.1 x10 3/uL 4.5-11.0 N RED BLOOD CELL (test code = RBC) 3.82 x10 6/uL 3.54-5.02 N HEMOGLOBIN (test code = HGB) 11.9 g/dL 11.0-15.0 N HEMATOCRIT (test code = HCT) 37.3 % 33.0-45.0 N MEAN CELL VOLUME (test code = MCV) 97.6 fL 81.0-99.0 N MEAN CELL HGB (test code = MCH) 31.2 pg 27.0-33.0 N MEAN CELL HGB CONCETRATION (test code = MCHC) 31.9 g/dL 33.0-37.0 L RED CELL DISTRIBUTION WIDTH CV (test code = RDW) 14.3 % 11.5-14.5 N RED CELL DISTRIBUTION WIDTH SD (test code = RDW-SD) 51.5 fL 37.0-54.0 N PLATELET COUNT (test code = PLT) 354 x10 3/uL 150-400 N MEAN PLATELET VOLUME (test c ode = MPV) 8.8 fL 7.0-9.0 N NEUTROPHIL % (test code = NT%) 53.8 % 56.0-77.0 L IMMATURE GRANULOCYTE % (test code = IG%) 0.3 % 0.0-2.0 N LYMPHOCYTE % (test code = LY%) 37.1 % 14.0-32.0 H MONOCYTE % (test code = MO%) 6.7 % 4.8-9.0 N EOSINOPHIL % (test code = EO%) 1.6 % 0.3-3.7 N BASOPHIL % (test code = BA%) 0.5 % 0.0-2.0 N NUCLEATED RBC % (test code = NRBC%) 0.0 % 0-0 N NEUTROPHIL # (test code = NT#) 3.27 x10 3/uL 2.0-7.6 N IMMATURE GRANULOCYTE # (test code = IG#) 0.02 x10 3/uL 0.00-0.03 N LYMPHOCYTE # (test code = LY#) 2.26 x10 3/uL 1.0-3.8 N MONOCYTE # (test code = MO#) 0.41 x10 3/uL 0.1-0.8 N EOSINOPHIL # (test code = EO#) 0.10 x10 3/uL 0.0-0.2 N BASOPHIL # (test code = BA#) 0.03 x10 3/uL 0.0-0.2 N NUCLEATED RBC # (test code = NRBC#) 0.00 x10 3/uL 0.0-0.1 N [id number] 14:21:00* Test Item Value Reference Range Interpretation Comments SURGICAL (test code = SR) RUN DATE: 02/02/23 [facility] PAGE 1 RUN TIME: 1421 Specimen Inquiry RUN USER: INTERFACE PATIENT: SALINA LAFLEUR LOC: [facility] U #: [id number] AGE/SX: 67/F ROOM: [facility] RE01/28/23REG DR: Josi Wilkins MD : 53 BED: 1 DIS: 01/29/23 STATUS: DIS IN TLOC: SPEC #: [id number] RECD: 01/28/23-140 STATUS: MARTÍNEZ WEBER #: [id number] PIEDAD: 01/28/23- SUBM DR: Josi Wilkins MD ENTERED: 01/28/23-140 SP TYPE: SURGICAL OTHR DR: Self Referred Elisa Pham MD, Daniel R MD Chaugle, Hannan H MD Dar, Bilal MD Legesse, Gohnesh NP Morris, Stephanie U MD Zwein, Amer MDORDERED: FROZ 1st 21646, 05110, 23504/2, SPEC STAIN GR2, 72655, IHC ADD 55445/3, 66791, ANATOMIC SPEC COPIES TO: Self Referred Elisa Pham MD [address] [place], [place] [address] Vijay Woodruff MD [address] [facility] [address] [place] [address] [email or web address] Svitlana Lui MD [address] [place] [address]. [address] [place], [place] [address] Moon Mccall MD [address] [facility] [address] [place], [place] [id number] Angeles Zarate NP [address] [facility]. [place], [place] [address] Ivonne Davis MD [address] [place] [address]., [address] [place], [place] [id number] CONTINUED ON NEXT PAGE RUN DATE: 02/02/23 [facility] PAGE 2 RUN TIME: 1421 Specimen Inquiry RUN USER: INTERFACE SPEC #: [id number] PATIENT: SALINA LAFLEUR #[id number] (Continued) - COPIES TO: (Continued) Josi Wilkins MD [address] [place] [address] Andrey Fierro MD [address] [place] [address] PROCEDURES: FROZ 1st 68334 (01/28/23) 84429 (01/29/23) 30498 (01/28/23) SPEC STAIN GR2 (02/01/23) 00104 (02/01/23) IHC ADD 24781 (02/01/23) 84035 (01/28/23) TISSUES: A. PELVIC FLUID WASHING (CYTOSPIN,CELL BLOCK) B. ADNEXA-- OVARY W/WO TUBE, NONNEOPLASTIC - RIGHT FOR FROZEN C. UTERUS W/WO TUBES OVARIES FOR LEIOMYOMA CLINICAL HISTORY SAME FINAL DIAGNOSIS 1. Pelvic washings and ascites, cytology (cytospin and cell block): No malignant cellsidentified. 2. 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 3. Uterus and adnexa, hysterectomy left salpingo-oophorectomy and right salpingectomy:Inactive endometrium with benign endometrial polyp; adenomyosis and small leiomyoma;unremarkable cervix; unremarkable benign bilateral fallopian tubes; benign left ovary withatrophic features. GROSS DESCRIPTION Specimen #1 received without fixative labeled "pelvic washings and ascites" is 50 cc of redbody fluid, processed for cytospin and cell block for cytology evaluation. Specimen #2 received fresh for frozen section labeled "right adnexa" is asalpingo-oophorectomy specimen, 2317 g. The posada-pink smooth cystic ovary measures 18 x 15x 14 cm with intact glistening serosal surface, attached with a segment of fimbriatedfallopian tube (3.5 x 0.5 x 0.5 cm). Sectioning the ovary reveals a multiloculated CONTINUED ON NEXT PAGE RUN DATE: 02/02/23 [facility] PAGE 3 RUN TIME: 1421 Specimen Inquiry RUN USER: INTERFACE SPEC #: [id number] PATIENT: SALINA LAFLEUR #[id number] (Continued) - GROSS DESCRIPTION (Continued) solid cystic mass filled with light yellow clear serous fluid, without exophyticpapillary lesion. Sodium Methylate Operator sections are submitted for frozen section FSA. Additional sales representative consultant sections are submitted for permanent (B)-(K). Specimen #3 is received in formalin in a container labeled with the patient's name anddesignated uterus, cervix, bilateral fallopian tubes and left ovary and consists of ahysterectomy specimen with attached left adnexa and right fallopian tube. After removingthe adnexa the uterus weighs 58 g and measures 8 x 5 x 3 cm. The serosal fibroid ispresent. The serosal fibroid is submitted in cassette L. Sodium Methylate Operator sections of thecervix are submitted in cassette M. The uterus is then opened to reveal a possibleendometrial polyp that measures 0.5 cm in greatest dimension. The polyp is entirelysubmitted in cassettes N and O. Additional sections of endomyometrium are submitted incassettes P through S. No other mass lesions are identified. The left ovary measures 2 x1.1 x 0.5 cm. It is bisected and entirely submitted in cassette T. The left fallopiantube has a fimbriated end and measures 4.2 cm in length. Sodium Methylate Operator sections aresubmitted in cassette U. The right fallopian tube stump measures 5 cm in length. No clearfimbriated end is seen. Sodium Methylate Operator sections are submitted in cassette V. Technical component performed at [facility],[address] [place] [address], [place] [address] Unless gross only, the diagnosis is based upon microscopic examination.Immunohistochemistry: This test was developed and its performance characteristicsdetermined by this laboratory. It has not been approved nor does it need approvalby the [place] FDA. Appropriate positive and negative controls are reviewed and judgedto be acceptable for performedimmunohistochemistry and/or special stains. This laboratoryis certified under the Clinical Laboratory Improvement Amendments (CLIA-88) as qualified toperform high complexity clinical laboratory testing. INTRAOPERATIVE CONSULTATION PROCEDURE: Frozen sectionStart Time: 1200End Time: 1219Performed by: Citlalli Jay Reported to: Eric Wilkins FSA: Multiloculated benign cystic neoplasm, defer to permanent. MICROSCOPIC DESCRIPTION Microscopic examination of morphology of H E stain leads to differential diagnosisrequiring further work up. Immunohistochemical stains have been performed with appropriatecontrols on block (C), which show that the spindle sex-cord stromal cells are positive forbehaving and calretinin, and are negative for CK7 and GATA3. Immunohistochemical stains are laboratory developed tests, not cleared with FDA. CONTINUED ON NEXT PAGE RUN DATE: 02/02/23 [facility] PAGE 4 RUN TIME: 1421 Specimen Inquiry RUN USER: INTERFACE SPEC #: [id number] PATIENT: MIQUELSALINACORRIE SIMEON #[id number] (Continued) - CLINICAL INFORMATION ABDOMINAL PELVIC MASS Signed Vu Jay 02/02/23 1421 END OF REPORT BASIC METABOLIC [id number] 06:29:00* Test Item Value Reference Range Interpretation Comme nts SODIUM (test code = NA) 139 mEq/L 134-147 N POTASSIUM (test code = K) 4.6 mEq/L 3.4-5.0 N CHLORIDE (test code = CL) 105 mEq/L 100-108 N CARBON DIOXIDE (test code = CO2) 29 mEq/l 21-33 N ANION GAP (test code = GAP) 9 0-20 N GLUCOSE (test code = GLU) 135 mg/dL 77-141 NOTE: NEW NORMAL RANGE BLOOD UREA NITROGEN (test code = BUN) 14 mg/dL 7-25 N NOTE: NEW NORM AL RANGE GLOMERULAR FILTRATION RATE (test code = GFR) 97.7 80-90 H The Glomerular Filtration Rate is a calculated parameterbased on serum Creatinine, patient age and sex. GFR valuesless than 60 mL/min/1.73 square meters are indicative ofChronic Kidney Disease. Values less than 15 mL/min/1.73square meters indicate Kidney failure. The calculation forGFR is based on the CKD-EPI (2020) calculation. This formulais race indifferent and is the recommended formula for GFRby the National Kidney Foundation for Adults.The GFR will not calculate if the sex is unknown or if thepatient's age is <18 years. CREATININE (test code = CREAT) 0.6 mg/dL 0.6-1.3 N CALCIUM (test code = CA) 9.2 mg/dL 8.0-10.5 N CBC W/AUTO [id number] 05:26:00* Test Item Value Reference Range Interpretation Comme nts WHITE BLOOD CELL (test code = WBC) 8.2 x10 3/uL 4.5-11.0 N RED BLOOD CELL (test code = RBC) 3.40 x10 6/uL 3.54-5.02 L HEMOGLOBIN (test code = HGB) 10.7 g/dL 11.0-15.0 L HEMATOCRIT (test code = HCT) 33.0 % 33.0-45.0 N MEAN CELL VOLUME (test code = MCV) 97.1 fL 81.0-99.0 N MEAN CELL HGB (test code = MCH) 31.5 pg 27.0-33.0 N MEAN CELL HGB CONCETRATION (test code = MCHC) 32.4 g/dL 33.0-37.0 L RED CELL DISTRIBUTION WIDTH CV (test code = RDW) 14.7 % 11.5-14.5 H RED CELL DISTRIBUTION WIDTH SD (test code = RDW-SD) 52.6 fL 37.0-54.0 N PLATELET COUNT (test code = PLT) 305 x10 3/uL 150-400 N MEAN PLATELET VOLUME (test c ode = MPV) 9.2 fL 7.0-9.0 H NEUTROPHIL % (test code = NT%) 68.7 % 56.0-77.0 N IMMATURE GRANULOCYTE % (test code = IG%) 0.2 % 0.0-2.0 N LYMPHOCYTE % (test code = LY%) 22.2 % 14.0-32.0 N MONOCYTE % (test code = MO%) 8.8 % 4.8-9.0 N EOSINOPHIL % (test code = EO%) 0.0 % 0.3-3.7 L BASOPHIL % (test code = BA%) 0.1 % 0.0-2.0 N NUCLEATED RBC % (test code = NRBC%) 0.0 % 0-0 N NEUTROPHIL # (test code = NT#) 5.61 x10 3/uL 2.0-7.6 N IMMATURE GRANULOCYTE # (test code = IG#) 0.02 x10 3/uL 0.00-0.03 N LYMPHOCYTE # (test code = LY#) 1.82 x10 3/uL 1.0-3.8 N MONOCYTE # (test code = MO#) 0.72 x10 3/uL 0.1-0.8 N EOSINOPHIL # (test code = EO#) 0.00 x10 3/uL 0.0-0.2 N BASOPHIL # (test code = BA#) 0.01 x10 3/uL 0.0-0.2 N NUCLEATED RBC # (test code = NRBC#) 0.00 x10 3/uL 0.0-0.1 N BASIC METABOLIC [id number] 10:01:00* Test Item Value Reference Range Interpretation Comme nts SODIUM (test code = NA) 138 mEq/L 134-147 N POTASSIUM (test code = K) 4.0 mEq/L 3.4-5.0 N CHLORIDE (test code = CL) 103 mEq/L 100-108 N CARBON DIOXIDE (test code = CO2) 29 mEq/l 21-33 N ANION GAP (test code = GAP) 10 0-20 N GLUCOSE (test code = GLU) 92 mg/dL 77-141 N NOTE: NEW NORMAL RANGE BLOOD UREA NITROGEN (test code = BUN) 14 mg/dL 7-25 N NOTE: NEW NORM AL RANGE GLOMERULAR FILTRATION RATE (test code = GFR) 97.7 80-90 H The Glomerular Filtration Rate is a calculated parameterbased on serum Creatinine, patient age and sex. GFR valuesless than 60 mL/min/1.73 square meters are indicative ofChronic Kidney Disease. Values less than 15 mL/min/1.73square meters indicate Kidney failure. The calculation forGFR is based on the CKD-EPI (202) calculation. This formulais race indifferent and is the recommended formula for GFRby the National Kidney Foundation for Adults.The GFR will not calculate if the sex is unknown or if thepatient's age is <18 years. CREATININE (test code = CREAT) 0.6 mg/dL 0.6-1.3 N CALCIUM (test code = CA) 9.3 mg/dL 8.0-10.5 N - XR CHEST 2 [id number] 16:41:00 [facility] 1955 Sex: F FAX: Vijay Rivera MD [phone] [place]: St: PRE FAX: Josi Sarmiento [phone] Name: SALINA LAFLEUR [facility] : 1955 Age/S: 67/F [address] [place] [address] Unit #: [id number]: Luz Marina[address] [place] [address] Phys: Josi Wilkins MD Acct: [id number] Dis Date: Status: PRE INPHONE #: [phone] Exam Date: 01/27/2023 1608 FAX #: [phone] Reason: PREOP EXAMS: CPT CODE: [id number] XR CHEST 2 V 05323 Chest x-ray 2 views History: PREOP Comparison: July 03, 2013 Location: H45 Number of images: 2 The heart appears unchanged in size. Pulmonary vasculature is unremarkable. The visualized lung mcnair appear to be free of disease. The bones appear unchanged. There is a lindsey cified granuloma in the right lung. IMPRESSION: There is no radiographic evidence of acute cardiopulmonary disease. at 1641 Reported and signed by: Gregory Rodriguez M.D. CC: Vijay Woodruff MD; Josi Wilkins MD Technologist: Amisha Caraballo RT(R) Trnscrd Date/Time/By: 01/27/2023 (1722) : By: LizPMT Orig Print D/T: S: 01/27/2023 (4037) PAGE 1 Signed ReportBASIC METABOLIC PANEL 2023-01-27 16:18:00* Test Item Value Reference Range Interpretation Comme nts SODIUM (test code = NA) 138 mEq/L 134-147 N POTASSIUM (test code = K) 4.3 mEq/L 3.4-5.0 N CHLORIDE (test code = CL) 101 mEq/L 100-108 N CARBON DIOXIDE (test code = CO2) 30 mEq/l 21-33 N ANION GAP (test code = GAP) 11 0-20 N GLUCOSE (test code = GLU) 79 mg/dL 77-141 N NOTE: NEW NORMAL RANGE BLOOD UREA NITROGEN (test code = BUN) 22 mg/dL 7-25 N NOTE: NEW NORM AL RANGE GLOMERULAR FILTRATION RATE (test code = GFR) 54.7 80-90 L The Glomerular Filtration Rate is a calculated parameterbased on serum Creatinine, patient age and sex. GFR valuesless than 60 mL/min/1.73 square meters are indicative ofChronic Kidney Disease. Values less than 15 mL/min/1.73square meters indicate Kidney failure. The calculation forGFR is based on the CKD-EPI (2020) calculation. This formulais race indifferent and is the recommended formula for GFRby the National Kidney Foundation for Adults.The GFR will not calculate if the sex is unknown or if thepatient's age is <18 years. CREATININE (test code = CREAT) 1.1 mg/dL 0.6-1.3 N CALCIUM (test code = CA) 9.5 mg/dL 8.0-10.5 N PROTHROMBIN [id number] 16:17:00* Test Item Value Reference Range Interpretation Comme nts PROTHROMBIN TIME PATIENT (test code = PTP) 11.2 SECONDS 9.3-12.9 N INTERNATIONAL NORMAL RATIO (test code = INR) 1.0 0.8-1.2 N TARGET INR BY INDICATION Indication INR1. Prophylaxis of venous thrombosis 2.0 - 3.0 (orthopedic surgery), Prophylaxis of venous thrombosis (other than high-risk surgery), Treatment of Deep Vein Thrombosis/Pulmonary Embolism, Prevention of systemic embolism - Tissue heart valves, Acute Myocardial Infarction (to prevent systemic embolism), Valvular heart disease, Atrial Fibrillation, Bileaflet mechanical valve in aortic position.2. Mechanical prosthetic valves (high risk), 2.5 - 3.5 Presence of Lupus Anticoagulant or Antiphospholipid Antibodies, Prevention of systemic embolism - Acute Myocardial Infarction (to prevent recurrent infarct). THROMBOPLASTIN TIME [id number] 16:17:00* Test Item Value Reference Range Interpretation Comme nts THROMBOPLASTIN TIME PARTIAL (test code = PTT) 31.3 Seconds 25.0-39.5 N Therapeutic Rang e: 50.4 - 88.3 Seconds Effective 07/12/2018 CBC W/AUTO [id number] 16:08:00* Test Item Value Reference Range Interpretation Comme nts WHITE BLOOD CELL (test code = WBC) 6.2 x10 3/uL 4.5-11.0 N RED BLOOD CELL (test code = RBC) 3.80 x10 6/uL 3.54-5.02 N HEMOGLOBIN (test code = HGB) 11.9 g/dL 11.0-15.0 N HEMATOCRIT (test code = HCT) 36.9 % 33.0-45.0 N MEAN CELL VOLUME (test code = MCV) 97.1 fL 81.0-99.0 N MEAN CELL HGB (test code = MCH) 31.3 pg 27.0-33.0 N MEAN CELL HGB CONCETRATION (test code = MCHC) 32.2 g/dL 33.0-37.0 L RED CELL DISTRIBUTION WIDTH CV (test code = RDW) 14.9 % 11.5-14.5 H RED CELL DISTRIBUTION WIDTH SD (test code = RDW-SD) 53.3 fL 37.0-54.0 N PLATELET COUNT (test code = PLT) 342 x10 3/uL 150-400 N MEAN PLATELET VOLUME (test c ode = MPV) 8.8 fL 7.0-9.0 N NEUTROPHIL % (test code = NT%) 59.9 % 56.0-77.0 N IMMATURE GRANULOCYTE % (test code = IG%) 0.3 % 0.0-2.0 N LYMPHOCYTE % (test code = LY%) 29.6 % 14.0-32.0 N MONOCYTE % (test code = MO%) 8.1 % 4.8-9.0 N EOSINOPHIL % (test code = EO%) 1.6 % 0.3-3.7 N BASOPHIL % (test code = BA%) 0.5 % 0.0-2.0 N NUCLEATED RBC % (test code = NRBC%) 0.0 % 0-0 N NEUTROPHIL # (test code = NT#) 3.71 x10 3/uL 2.0-7.6 N IMMATURE GRANULOCYTE # (test code = IG#) 0.02 x10 3/uL 0.00-0.03 N LYMPHOCYTE # (test code = LY#) 1.83 x10 3/uL 1.0-3.8 N MONOCYTE # (test code = MO#) 0.50 x10 3/uL 0.1-0.8 N EOSINOPHIL # (test code = EO#) 0.10 x10 3/uL 0.0-0.2 N BASOPHIL # (test code = BA#) 0.03 x10 3/uL 0.0-0.2 N NUCLEATED RBC # (test code = NRBC#) 0.00 x10 3/uL 0.0-0.1 N - US PELVIS [id number] 15:11:00 [facility] 1955 Sex: F Name: SALINA LAFLE[facility] : 1955 Age/S: 67 / F [address] [place] [address] Unit #: [id number] Loc: [place], [place] [address] Phys: Dru Benoit Acct: [id number] Dis Date:Status: ADM IN PHONE #: [phone] Exam Date: 01/20/2023 1458 FAX #: [phone] Reason: intra-abdominal cyst EXAMS: CPT CODE: [id number] US PELVIS COMPLETE 40137 Pelvic ultrasound History: Cyst. Technique: Transpelvic ultrasound of pelvic region was performed with orourke scale, color Doppler. LOCATION: H19 Findings: Correlation is made with 01/19/2023 CT abdomen/pelvis There is a hypoechoic structure is seen at the midline measuring 17.5 x 18.8 x 18.2 cm with internal septations with suspected internal vascularity. The uterus and ovaries are not identified, likely obscured. There is tracefree fluid in the pelvis. Impression: Large complex cystic mass with apparent internal vascularity concerning for a cystic neoplasm. Given its size, this is inadequately assessed on ultrasound exam, MR imaging with and without IV contrast is recommended for further assessment. The uterus and ovaries are obscured on this exam. Ovarian torsion cannot be excluded. Trace pelvic ascites. at 1511 Reported and signed by: Enrique Houston M.D. CC: Vijay Woodruff MD; Dru CLEVELAND; Stef Martins MD Technologist: Bianca Bermeo RDMS(AB) Trnscb Date/Time: 01/20/2023 (151) Adela.RH16 Orig Print D/T: S: 01/20/2023 (1514) Probe: PAGE1 Signed ReportGAMMA GLUTAMYL [id number] 03:29:00* Test Item Value Reference Range Interpretation Comme nts GAMMA GLUTAMYL TRANSPEPTIDASE (test code = GGT) 22 UNITS/L 5-85 N Result is in INTERNATIONAL UNITS/LITER [id number] 03:29:00* Test Item Value Reference Range Interpretation Comme nts ALCOHOL (test code = ALC) < 3.0 mg/dL <10 N Ethyl Alcohol Interpretation: 100 mg/dL - Legally Intoxicated 300-400 mg/dL - Severely Intoxicated >400 mg/dL - Potentially LethalThe pharmacological response to blood alcohol levels mayvary from individual to individual. Signs of intoxicationcan be observed at levels of 50-100 mg/dL. Results are for Medical purposes only, and not for Legal orEmployment evaluation purposes. - CT ABD PELVIS W/[id number] 14:39:00 [facility] 1955 Sex: F Name: SALINA LAFLEUR [facility] : 1955 Age/S: 67 / F [address] [place] [address] Unit #: [id number] Loc: [place] [address] Phys: Lani Altamirano MD Acct: [id number] Dis Date: Status: REG ER PHONE #: [phone] Exam Date: 01/19/2023 [facility] FAX #: [phone] Reason: R sided abd pain and vomiting EXAMS: CPT CODE: [id number] CT ABD PELVIS W/CONT 93752 HISTORY: Right-sided abdominal pain vomiting. CT abdomen and pelvis, contrast enhanced. Reformatted [place] coronal images. COMPARISON: None Automated exposure control, iterative reconstruction technique, and/or adjustment of mA and/or kV according to patient's size was utilized for optimum radiation dose reduction. Following the intravenous administration of 100 ml of Isovue 300 but no oral contrast, a study of the abdomen and pelvis was performed. The study includes some of the lung bases, which appear to be clear. Densely calcified, small right basilar granuloma, benign. No pericardial or pleural fluid can be found. Liver with mild fatty changes. Margins are smooth. No mass like areas. Gallbladder intact. The fundus contains a tiny cyst 4 mm gallstone. The common bile duct is measured at 5.8 mm. Main pancreatic duct at 3.5 mm which may be mildly prominent. Pancreatic enhancement appearsto be uniform. No surrounding edema. Adrenals and kidneys with good perfusion. No evidence of kidney stones, obstruction or stranding. Extrarenal pelvis configuration bilaterally. Ureteral appearancemaintained. Normal aortic diameter seen with good perfusion. No retroperitoneal adenopathy. A largewell-circumscribed cystic lesion is seen in the midline measuring 18.2 x 13.7 with a height of 15 cm. Soft tissue density seen in the right aspect of the cystic lesion likely cystadenoma or cystadenoc arcinoma. There may be another loculated component at the right adnexal level with more solid areas. The bladder shows normal wall thickness. Stomach and small bowel pattern maintained. Large bowel intact. Normal appendix seen lying adjacent to the cystic lesion. The study of the pelvis shows diverticulosis at the left colon and sigmoid but no active inflammatory change. Right hip arthroplasty PAGE 1 Signed Report (CONTINUED) Name: SALINA LAFLEUR [facility] : 1955 Age/S: 67 / F [address] [place] [address] Unit #: [id number] Loc: [place] [address] Phys: Lani Garay MD Acct: [id number] Dis Date: Status: REG ER PHONE #: [phone] Exam Date: 01/19/2023 1351 FAX #: [phone] Reason: R sided abd pain and vomiting EXAMS: CPT CODE: [id number] CT ABD PELVIS W/CONT 97451 (Continued) artifact is limiting. Bony structures intact. No bony destructive process. Degenerative spine changes are seen with spondylosis at every level. IMPRESSION: Well-circumscribed large cystic lesion mainly in the midline at 18 cm in diameter. There appear be more solid components at the right adnexal level with another complex cystic component. 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 No significant free fluid seen for rupture. Trace free fluid at the left paracolic gutter. Diverticulosis of the sigmoid and left colon but no active inflammatory changes. Slight fullne ss of the main pancreatic duct may need correlation with pancreatic enzyme abnormalities. Single gallstone without cholecystitis findings Location: U19 at 1439 Reported and signed by: Enrique Perez M.D. CC: Lani Garay MD; Vijay Woodruff MD Technologist:Waldemar Ruth, RT(R)(CT) CTDI: DLP: Trnscb Date/Time: 01/19/2023 (1439) [id number] Orig Print D/T: S: 01/19/2023 (6021) PAGE 2 Signed ReportUA RFLX MICR CULT IF [id number] 13:39:00* Test Item Value Reference Range Interpretation Comme nts UA COLOR (test code = COLU) YELLOW YEL/STRAW UA APPEARANCE (test code = APPU) CLEAR CLEAR UA GLUCOSE DIPSTICK (test co de = DGLUU) NEGATIVE NEGATIVE UA BILIRUBIN DIPSTICK (test code = BILU) NEGATIVE NEGATIVE UA KETONE DIPSTICK (test cod e = KETU) NEGATIVE NEGATIVE UA SPECIFIC GRAVITY (test co de = SGU) 1.013 1.005-1.030 N UA BLOOD DIPSTICK (test code = KALA) NEGATIVE NEGATIVE UA PH DIPSTICK (test code = JEROME) 8.0 5.0-7.0 H UA PROTEIN DIPSTICK (test co de = PROU) 1+ NEGATIVE A UA UROBILINIOGEN DIPSTICK (test code = URO) 0.2 mg/dL 0.2-1.0 UA NITRITE DIPSTICK (test co de = MARI) NEGATIVE NEGATIVE UA LEUKOCYTE ESTERASE DIPSTI CK (test code = LEUU) NEGATIVE NEGATIVE UA WBC (test code = WBCU) 0-3 WBC/HPF 0-3 UA RBC (test code = RBCU) 0-3 RBC/HPF 0-3 UA WBC NO REFLEX (test code = WBCUCL) 0-3 WBC/HPF 0-3 UA BACTERIA (test code = BACU) NONE SEEN /HPF NONE SEEN UA SQUAMOUS CELLS (test code = SQU) NONE SEEN /HPF NONE SEEN Indication for culture: Dysuria/FrequencySpecimen Description: Clean CatchBASIC METABOLIC [id number] 13:32:00* Test Item Value Reference Range Interpretation Comme nts SODIUM (test code = NA) 137 mEq/L 134-147 N POTASSIUM (test code = K) 3.7 mEq/L 3.4-5.0 N CHLORIDE (test code = CL) 101 mEq/L 100-108 N CARBON DIOXIDE (test code = CO2) 31 mEq/l 21-33 N ANION GAP (test code = GAP) 9 0-20 N GLUCOSE (test code = GLU) 117 mg/dL 77-141 N NOTE: NEW NORMAL RANGE BLOOD UREA NITROGEN (test code = BUN) 15 mg/dL 7-25 N NOTE: NEW NORM AL RANGE GLOMERULAR FILTRATION RATE (test code = GFR) 97.7 80-90 H The Glomerular Filtration Rate is a calculated parameterbased on serum Creatinine, patient age and sex. GFR valuesless than 60 mL/min/1.73 square meters are indicative ofChronic Kidney Disease. Values less than 15 mL/min/1.73square meters indicate Kidney failure. The calculation forGFR is based on the CKD-EPI (2020) calculation. This formulais race indifferent and is the recommended formula for GFRby the National Kidney Foundation for Adults.The GFR will not calculate if the sex is unknown or if thepatient's age is <18 years. CREATININE (test code = CREAT) 0.6 mg/dL 0.6-1.3 N CALCIUM (test code = CA) 9.6 mg/dL 8.0-10.5 N HEPATIC FUNCTION [id number] 13:32:00* Test Item Value Reference Range Interpretation Comme nts TOTAL PROTEIN (test code = PROT) 7.2 g/dL 6.4-8.2 N ALBUMIN (test code = ALB) 4.00 g/dL 3.4-5.0 N BILIRUBIN TOTAL (test code = BILT) 0.60 mg/dL 0.0-1.0 N BILIRUBIN DIRECT (test code = BILD) 0.20 MG/DL 0.1-0.3 N NOTE: NEW NORMAL RANGE SGOT/AST (test code = AST) 25 IUnit/L 8-34 N NOTE: NEW NORMAL RANGE SGPT/ALT (test code = ALT) 14 IUnit/L 10-49 N NOTE: NEW NORMAL RANGE ALKALINE PHOSPHATASE TOTAL (test code = ALKP) 79 IUnit/L 20-125 N BILIRUBIN INDIRECT (test code = BILIND) 0.40 MG/DL [id number] 13:32:00* Test Item Value Reference Range Interpretation Comme nts LIPASE (test code = LIP) 34 U/L 13-57 N TROP-I HIGH [id number] 13:32:00* Test Item Value Reference Range Interpretation Comme nts TROP-I HIGH SENSITIVITY (test code = TROPIHS) 22 ng/L 0-34 N CAUTION: Units o f the current test methodology (ng/L) differfrom the prior test methodology (ng/mL) by a factor of 1000. 99th Percentile Upper Reference Limit (URL): Females: 34 ng/LMales: 54 ng/L In order to distinguish acute elevations of high sensitivitytroponin from other clinical conditions, the FourthUniversal Definition of Myocardial Infarction stressesclinical assessment and the demonstration of a rise and/orfall in serial troponin results above the URL. These results were obtained using [employer] TnIHreagent. Results from different methodologies should not becompared to one another as quantitative results and URLs mayvary by method. CBC W/AUTO [id number] 13:19:00* Test Item Value Reference Range Interpretation Comme nts WHITE BLOOD CELL (test code = WBC) 6.3 x10 3/uL 4.5-11.0 N RED BLOOD CELL (test code = RBC) 4.13 x10 6/uL 3.54-5.02 N HEMOGLOBIN (test code = HGB) 12.8 g/dL 11.0-15.0 N HEMATOCRIT (test code = HCT) 39.7 % 33.0-45.0 N MEAN CELL VOLUME (test code = MCV) 96.1 fL 81.0-99.0 N MEAN CELL HGB (test code = MCH) 31.0 pg 27.0-33.0 N MEAN CELL HGB CONCETRATION (test code = MCHC) 32.2 g/dL 33.0-37.0 L RED CELL DISTRIBUTION WIDTH CV (test code = RDW) 15.4 % 11.5-14.5 H RED CELL DISTRIBUTION WIDTH SD (test code = RDW-SD) 54.2 fL 37.0-54.0 H PLATELET COUNT (test code = PLT) 347 x10 3/uL 150-400 N MEAN PLATELET VOLUME (test c ode = MPV) 8.8 fL 7.0-9.0 N NEUTROPHIL % (test code = NT%) 79.7 % 56.0-77.0 H IMMATURE GRANULOCYTE % (test code = IG%) 0.3 % 0.0-2.0 N LYMPHOCYTE % (test code = LY%) 13.2 % 14.0-32.0 L MONOCYTE % (test code = MO%) 6.2 % 4.8-9.0 N EOSINOPHIL % (test code = EO%) 0.0 % 0.3-3.7 L BASOPHIL % (test code = BA%) 0.6 % 0.0-2.0 N NUCLEATED RBC % (test code = NRBC%) 0.0 % 0-0 N NEUTROPHIL # (test code = NT#) 4.99 x10 3/uL 2.0-7.6 N IMMATURE GRANULOCYTE # (test code = IG#) 0.02 x10 3/uL 0.00-0.03 N LYMPHOCYTE # (test code = LY#) 0.83 x10 3/uL 1.0-3.8 L MONOCYTE # (test code = MO#) 0.39 x10 3/uL 0.1-0.8 N EOSINOPHIL # (test code = EO#) 0.00 x10 3/uL 0.0-0.2 N BASOPHIL # (test code = BA#) 0.04 x10 3/uL 0.0-0.2 N NUCLEATED RBC # (test code = NRBC#) 0.00 x10 3/uL 0.0-0.1 N CBC W/AUTO [id number] 00:00:00* Test Item Value Reference Range Interpretation Comme nts NUCLEATED RBCS (test code = 68086-4) 0.0 /100 WBC'S See_Comment [Automated [employer] ge] The system which generated this result transmitted reference range: 0.0 /100 WBC'S. The reference range was not used to interpret this result as normal/abnormal. ABSOLUTE EOSINOPHILS (test code = 75443-3) 0.20 K/UL See_Comment [Automated [employer]] The system which generated this result transmitted reference range: 0.00-0.50 K/UL. The reference range was not used to interpret this result as normal/abnormal. ABSOLUTE LYMPHOCYTES (test code = 87507-6) 2.85 K/UL See_Comment [Automated messa ge] The system which generated this result transmitted reference range: 1.00-4.00 K/UL. The reference range was not used to interpret this result as normal/abnormal. ABSOLUTE MONOCYTES (test code = 87554-3) 0.43 K/UL See_Comment [Automated messa ge] The system which generated this result transmitted reference range: 0.20-1.00 K/UL. The reference range was not used to interpret this result as normal/abnormal. ABSOLUTE NEUTROPHILS (test code = 52621-4) 2.93 K/UL See_Comment [Automated messa ge] The system which generated this result transmitted reference range: 1.50-7.50 K/UL. The reference range was not used to interpret this result as normal/abnormal. BASOPHILS (test code = 11435-6) 0.6 % EOSINOPHILS (test code = 73162-7) 3.1 % HEMATOCRIT (test code = 08620-4) 37.9 % See_Comment [Automated messa ge] The system which generated this result transmitted reference range: 34.0-45.0 %. The reference range was not used to interpret this result as normal/abnormal. HEMOGLOBIN (test code = 718-7) 12.4 G/DL See_Comment [Automated messa ge] The system which generated this result transmitted reference range: 11.5-15.5 G/DL. The reference range was not used to interpret this result as normal/abnormal. LYMPHOCYTES (test code = 41920-7) 44.0 % MCH (test code = 53719-1) 31.1 PG See_Comment [Automated messa ge] The system which generated this result transmitted reference range: 25.0-33.0 PG. The reference range was not used to interpret this result as normal/abnormal. MCHC (test code = 33082-2) 32.7 G/DL See_Comment [Automated messa ge] The system which generated this result transmitted reference range: 31.0-36.0 G/DL. The reference range was not used to interpret this result as normal/abnormal. MCV (test code = 68598-5) 95.0 fL See_Comment [Automated messa ge] The system which generated this result transmitted reference range: 80.0-99.0 fL. The reference range was not used to interpret this result as normal/abnormal. MONOCYTES (test code = 12157-8) 6.6 % NEUTROPHILS (test code = 32254-8) 45.4 % PLATELET COUNT (test code = 92349-6) 356 K/UL See_Comment [Automated messa ge] The system which generated this result transmitted reference range: 130-400 K/UL. The reference range was not used to interpret this result as normal/abnormal. RBC (test code = 93716-4) 3.99 M/UL See_Comment [Automated messa ge] The system which generated this result transmitted reference range: 3.80-5.40 M/UL. The reference range was not used to interpret this result as normal/abnormal. RDW (test code = 84639-4) 13.3 % See_Comment [Automated messa ge] The system which generated this result transmitted reference range: 11.5-15.0 %. The reference range was not used to interpret this result as normal/abnormal. WBC (test code = 44062-0) 6.5 K/UL See_Comment [Automated messa ge] The system which generated this result transmitted reference range: 3.5-11.0 K/UL. The reference range was not used to interpret this result as normal/abnormal. COMPREHENSIVE METABOLIC [id number] 00:00:00* Test Item Value Reference Range Interpretation Comme nts ALBUMIN (test code = 1751-7) 4.3 G/DL See_Comment [Automated messa ge] The system which generated this result transmitted reference range: 3.5-5.2 G/DL. The reference range was not used to interpret this result as normal/abnormal. ALKALINE PHOSPHATASE (test code = 6768-6) 79 U/L See_Comment [Automated message] The system which generated this result transmitted reference range: 40-142 U/L. The reference range was not used to interpret this result as normal/abnormal. BILIRUBIN, TOTAL (test code = 1975-2) 0.3 MG/DL See_Comment [Automated message] The system which generated this result transmitted reference range: <=1.2 MG/DL. The reference range was not used to interpret this result as normal/abnormal. BUN (test code = 3094-0) 17 MG/DL See_Comment [Automated messa ge] The system which generated this result transmitted reference range: 8-23 MG/DL. The reference range was not used to interpret this result as normal/abnormal. CALCIUM (test code = 76369-4) 10.2 MG/DL See_Comment [Automated messa ge] The system which generated this result transmitted reference range: 8.5-10.5 MG/DL. The reference range was not used to interpret this result as normal/abnormal. CALC A/G RATIO (test code = 1759-0) 1.8 RATIO See_Comment [Automated messa ge] The system which generated this result transmitted reference range: 1.0-2.6 RATIO. The reference range was not used to interpret this result as normal/abnormal. CALC BUN/CREAT (test code = 3097-3) 29 RATIO See_Comment H [Automated messa ge] The system which generated this result transmitted reference range: 6-28 RATIO. The reference range was not used to interpret this result as normal/abnormal. CALC GLOBULIN (test code = 65883-1) 2.4 G/DL See_Comment [Automated messa ge] The system which generated this result transmitted reference range: 1.9-3.7 G/DL. The reference range was not used to interpret this result as normal/abnormal. CARBON DIOXIDE (test code = 1963-8) 26 MEQ/L See_Comment [Automated messa ge] The system which generated this result transmitted reference range: 19-31 MEQ/L. The reference range was not used to interpret this result as normal/abnormal. CHLORIDE (test code = 2075-0) 103 MEQ/L See_Comment [Automated messa ge] The system which generated this result transmitted reference range: 95-107 MEQ/L. The reference range was not used to interpret this result as normal/abnormal. CREATININE (test code = 2160-0) 0.58 MG/DL See_Comment L [Automated messa ge] The system which generated this result transmitted reference range: 0.60-1.30 MG/DL. The reference range was not used to interpret this result as normal/abnormal. eGFR (2020 CKD-EPI) (test code = 10427-9) 99 ML/MIN/1.73 See_Comment [Automated messa ge] The system which generated this result transmitted reference range: >60 ML/MIN/1.73. The reference range was not used to interpret this result as normal/abnormal. GLUCOSE (test code = 1558-6) 79 MG/DL See_Comment [Automated messa ge] The system which generated this result transmitted reference range: 70-99 MG/DL. The reference range was not used to interpret this result as normal/abnormal. POTASSIUM (test code = 2823-3) 4.7 MEQ/L See_Comment [Automated messa ge] The system which generated this result transmitted reference range: 3.5-5.4 MEQ/L. The reference range was not used to interpret this result as normal/abnormal. PROTEIN, TOTAL (test code = 2885-2) 6.7 G/DL See_Comment [Automated messa ge] The system which generated this result transmitted reference range: 6.1-8.3 G/DL. The reference range was not used to interpret this result as normal/abnormal. AST (test code = 1920-8) 24 U/L See_Comment [Automated messa ge] The system which generated this result transmitted reference range: 9-40 U/L. The reference range was not used to interpret this result as normal/abnormal. ALT (test code = 1742-6) 13 U/L See_Comment [Automated messa ge] The system which generated this result transmitted reference range: 5-40 U/L. The reference range was not used to interpret this result as normal/abnormal. SODIUM (test code = 2951-2) 142 MEQ/L See_Comment [Automated messa ge] The system which generated this result transmitted reference range: 133-146 MEQ/L. The reference range was not used to interpret this result as normal/abnormal. CBC W/AUTO [id number] 00:00:00* Test Item Value Reference Range Interpretation Comme nts NUCLEATED RBCS (test code = 04222-8) 0.0 /100 WBC'S See_Comment [Automated messa ge] The system which generated this result transmitted reference range: 0.0 /100 WBC'S. The reference range was not used to interpret this result as normal/abnormal. ABSOLUTE EOSINOPHILS (test code = 24772-7) 0.13 K/UL See_Comment [Automated messa ge] The system which generated this result transmitted reference range: 0.00-0.50 K/UL. The reference range was not used to interpret this result as normal/abnormal. ABSOLUTE LYMPHOCYTES (test code = 40646-5) 1.60 K/UL See_Comment [Automated messa ge] The system which generated this result transmitted reference range: 1.00-4.00 K/UL. The reference range was not used to interpret this result as normal/abnormal. ABSOLUTE MONOCYTES (test code = 26182-2) 0.40 K/UL See_Comment [Automated messa ge] The system which generated this result transmitted reference range: 0.20-1.00 K/UL. The reference range was not used to interpret this result as normal/abnormal. ABSOLUTE NEUTROPHILS (test code = 82669-3) 3.95 K/UL See_Comment [Automated messa ge] The system which generated this result transmitted reference range: 1.50-7.50 K/UL. The reference range was not used to interpret this result as normal/abnormal. BASOPHILS (test code = 53626-3) 0.8 % EOSINOPHILS (test code = 44803-6) 2.1 % HEMATOCRIT (test code = 06425-9) 33.1 % See_Comment L [Automated messa ge] The system which generated this result transmitted reference range: 34.0-45.0 %. The reference range was not used to interpret this result as normal/abnormal. HEMOGLOBIN (test code = 718-7) 11.1 G/DL See_Comment L [Automated messa ge] The system which generated this result transmitted reference range: 11.5-15.5 G/DL. The reference range was not used to interpret this result as normal/abnormal. LYMPHOCYTES (test code = 05126-1) 26.0 % MCH (test code = 42243-6) 32.3 PG See_Comment [Automated messa ge] The system which generated this result transmitted reference range: 25.0-33.0 PG. The reference range was not used to interpret this result as normal/abnormal. MCHC (test code = 06118-5) 33.5 G/DL See_Comment [Automated messa ge] The system which generated this result transmitted reference range: 31.0-36.0 G/DL. The reference range was not used to interpret this result as normal/abnormal. MCV (test code = 14832-9) 96.2 fL See_Comment [Automated messa ge] The system which generated this result transmitted reference range: 80.0-99.0 fL. The reference range was not used to interpret this result as normal/abnormal. MONOCYTES (test code = 04912-0) 6.5 % NEUTROPHILS (test code = 67105-2) 64.3 % PLATELET COUNT (test code = 92018-5) 472 K/UL See_Comment H [Automated messa ge] The system which generated this result transmitted reference range: 130-400 K/UL. The reference range was not used to interpret this result as normal/abnormal. RBC (test code = 33366-5) 3.44 M/UL See_Comment L [Automated messa ge] The system which generated this result transmitted reference range: 3.80-5.40 M/UL. The reference range was not used to interpret this result as normal/abnormal. RDW (test code = 30824-2) 13.0 % See_Comment [Automated messa [employer]] The system which generated this result transmitted reference range: 11.5-15.0 %. The reference range was not used to interpret this result as normal/abnormal. WBC (test code = 74789-1) 6.2 K/UL See_Comment [Automated messa ge] The system which generated this result transmitted reference range: 3.5-11.0 K/UL. The reference range was not used to interpret this result as normal/abnormal. FOOT RIGHT COMPLETE 3 VIEWS*GP*2017-09-06 11:17:46Location of dictation: [id number] foot 3 viewsHISTORY: Bump on top of foot. No known traumaCOMMENT: Anarrow broussard the area of bump. There is mild enthesopathy of thetarsometatarsal joints and may account for palpable area along the dorsalaspect of the foot. No acute fracture, dislocation, focal bony or soft tissuelesion seen. There is mild diffuse swelling.IMPRESSION: Mild degenerative change may account for palpable dorsal bump. Mild swellingwith no acute bony or soft tissue abnormality.BASIC METABOLIC [id number] 09:27:00* Test Item Value Reference Range Interpretation Comme [...] 14:31:02PA and lateral chest, 2 views.Location code: [id number] HISTORY: Chest painCOMPARISON: NoneCOMMENTS: The lungs are clear and well inflated. The costophrenic angles aresharp. The cardiomediastinal silh ouette is unremarkable. The bones are intact.IMPRESSION: No acute abnormality Chest Pa And Lat (2 Views)Chest Pa And Lat (2 Views)3D SCR SHALINI BILAT W/CAD3D SCR SHALINI BILAT W/CAD3D SCR SHALINI BILAT W/CAD3D SCR SHALINI BILAT W/CAD Notes Date/Time Note Provider Source 2023-03-27 12:28:00 [id number] [place] [address] PATIENT NAME: SALINA LAFLEUR ADMIT DATE: 01/28/23 ACCOUNT NO: [id number] ROOM NO: [facility] AGE: 67 REPORT TYPE: DISCHARGE SUMMARY SEX: F ADMITTING PHYSICIAN:Josi Wilkins MD ATTENDING PHYSICIAN:Josi Wilkins MD ADMISSION DATE: 01/28/2023 05:05:00 DISCHARGE DATE: 01/29/2023 19:56:00 ATTENDING PHYSICIAN: Josi Wilkins MD HOSPITAL COURSE: The patient is a 67-year-old female who was admitted to the hospital to undergo planned procedure for a large abdominal pelvic mass. She underwent an exploratory laparotomy, total abdominal hysterectomy with bilateral salpingo-oophorectomy. She was found that were benign right ovarian tumor. EBL during the procedure was 100 mL. The patient tolerated the procedure well and was discharged to the PACU in stable condition. On postoperative day #1, the patient's pain was controlled. Her vitals were stable. She was discharged home in a stable condition. DISCHARGE MEDICATIONS: Include preadmission medications as well as Tylenol No. 3 p.r.n. pain. The patient will follow up in the clinic in 1 week for a postoperative checkup. Dictated By: Josi Wilkins MD Date Dictated: 03/27/2023 12:28:14 Date Transcribed: 03/27/2023 21:35:42 [facility] Receipt ID: [id number] Authenticated by Josi Wilkins MD On 03/30/2023 08:19:29 AM at 0819 PATIENT NAME: SALINA LAFLEUR [facility] 2023-03-23 11:17:00 [id number] [place] [address] PATIENT NAME: SALINA LAFLEUR ADMIT DATE: 03/08/23 ACCOUNT NO: [id number] ROOM NO: G.2204 AGE: 67 REPORT TYPE: 360 - QUERY RESPONSE DOCUMENT SEX: F ADMITTING PHYSICIAN:Svitlana Lui MD ATTENDING PHYSICIAN:Svitlana Lui MD Provider Query QUERY TEXT: Specificity General 360MD Query related questions should be directed to: [phone] Please provide any known specificity for atrial fibrillation (postoperative complication, chronic, paroxysmal, permanent, persistent, unspecified, other more appropriate diagnosis) The patient's Clinical Indicators include: postoperative atrial fibrillation. see cardiology PN 03/11 Options provided: -- Respond - Create new note now -- Dismiss - Not applicable / Not valid -- Dismiss - Clinically unable to determine / Unknown -- Assign to another provider QUERY RESPONSE: It was clearly stated that patient had post-operative atrial fibrillation which is common post-operative complication after open heart surgery. Query created by: Abbie Zarate on 03/19/2023 11:42 AM at 1117 PATIENT NAME: SALINA LAFLEUR [facility] 2023-03-16 12:40:00 [id number] [place] [id number] PATIENT NAME: SALINA LAFLEUR ADMIT DATE: 03/08/23 ACCOUNT NO: [id number] ROOM NO: G.2204 AGE: 67 REPORT TYPE: 360 - QUERY RESPONSE DOCUMENT SEX: F ADMITTING PHYSICIAN:Svitlana Lui MD ATTENDING PHYSICIAN:Svitlana Lui MD Provider Query QUERY TEXT: Condition General 360MD Query related questions should be directed to: [facility] Coding Query Help-line Based on your medical judgment kindly further specify the clinical significance of the indicators mentioned below (Significant Hypernatremia, Insignificant Hypernatremia, abnormal sodium level, unable to determine or other more appropriate diagnosis) The patient's Clinical Indicators include: Sodium (134 - 147 mmol/L) 143 143 149 H 139 - Cardiology Consultation 03/08/2023 (47) Sodium (134 - 147 mmol/L) 142 143 143 149 H - Critical Care Progress Note 03/09/2023 (38) NS 1,000 mL - MAR 03/08/2023 Options provided: -- Respond - Create new note now -- Dismiss - Not applicable / Not valid -- Dismiss - Clinically unable to determine / Unknown -- Assign to another provider QUERY RESPONSE: Insignificant hypernatremia Query created by: SUZANNE GLASS on 03/16/2023 4:31 AM at 1240 PATIENT NAME: SALINA LAFLEUR [facility] 2023-03-14 15:19:00 [id number] [address] PATIENT NAME: SALINA LAFLEUR ADMIT DATE: 03/08/23 ACCOUNT NO: [id number] ROOM NO: G.2204 AGE: 67 REPORT TYPE: eECHOCARDIOGRAM REPORT SEX: F ADMITTING PHYSICIAN:Svitlana Lui MD ATTENDING PHYSICIAN:Svitlana Lui MD *[address] [address] Limited Transthoracic Echocardiogram Patient: Salina Lafleur Study Date: 03/13/2023 BP: 105 / 63 URN: [id number] Location: : 1955 Age: 67 Gender: F Height: 64 in / 162.6 cm Weight: 186 lb / 84.4 kg BMI/BSA: 31.9 kg/m 2 / 1.98 m 2 *Ordering Physician: * Tamara Benavides *Interpreting Physician: * Jensen Rivas MD *[employer] Operator: * Yvette Patricia Indications: R/O EFFUSION. Study data: Transthoracic echocardiogram, limited study. Procedure: A transthoracic echocardiogram was performed. Images were obtained using a Frees[employer] cardiac ultrasound machine. Image quality was fair. Limited 2D and limited spectral Doppler. Location: Bedside. Patient status: Inpatient. Patient room number: 2204. Study status: Routine. Heart rate: 69 bpm. Findings Left ventricle: Systolic function is normal. The estimated ejection fraction is 55-59%. Right ventricle: Systolic function is reduced. Aortic valve: A bioprosthetic valve is present. PATIENT NAME: SALINA LAFLEUR Pericardium: A small pericardial effusion is identified along the left ventricular free wall and along the left atrial free wall. Systemic veins: Inferior vena cava: The IVC is dilated. Measurements Left ventricle Value Ref 03/09/2023 KEYANA major ax, A2C 7.9 cm ----- 6.9 ESD major ax, A2C 6.0 cm ----- 5.7 E', med patrick, TDI 11.1 cm/sec >=7.0 7.8 E/e', med patrick, TDI 9 ----- 13 Right ventricle Value Ref 03/09/2023 TAPSE, MM 1.1 cm >=1.7 1.0 Mitral valve Value Ref 03/09/2023 Peak E 1.01 m/sec ----- 1.01 Peak A 0.84 m/sec ----- 0.64 Decel time 233 ms ----- 203 Peak grad, D 4.0 mm Hg ----- 6.2 Peak E/A ratio 1.19 ----- 1.58 Conclusions Summary: 1. Left ventricle: Systolic function is normal. The estimated ejection fraction is 55-59%. 2. Right ventricle: Systolic function is reduced. 3. Aortic valve: A bioprosthetic valve is present. 4. Pericardium, extracardiac: A small pericardial effusion is identified along the left ventricular free wall and along the left atrial free wall. 5. Inferior vena cava: The IVC is dilated. Electronically signed by Jensen Rivas MD 03/14/2023 15:19 at 1519 PATIENT NAME: SALINA LAFLEUR [facility] 2023-03-13 13:42:00 [facility] ([facility]) Discharge Summary REPORT#:[id number] REPORT STATUS: Signed REPORT INITIALIZATION DATE:03/13/23 TIME: 134 PATIENT: SALINA LAFLEUR UNIT #: [id number] ROOM/BED: [place] [address] : [birth year] AGE: 67 SEX: F ATTEND: Svitlana Lui MD ADM AUTHOR: Tamara Benavides Physic REPT SERVICE DT/TIME: 03/13/23 1342 * ALL edits or amendments must be made on the electronic/computer document * General Information Discharge date: 03/13/23 Discharge diagnosis: Aortic insufficiency Hospital course: This Is a 67-year-old female with a past medical history of hypertension, hyperlipidemia, aortic valve stenosis, mitral regurgitation who presents today for evaluation for aortic valve replacement and mitral valve replacement.She reports she has increased shortness of breath for the past several months. She underwent full work[facility]up [facility] with echocardiogram showing severe aortic valve stenosis with an HAILE 0.9 cm, peak gradient 37 mmHg, mean 60 mmHg. She underwent JAMES showing severe mitral regurgitation with systolic reversal pulmonary vein, with thickening of the aortic valve with masslike appearance. She underwent left heart catheterization at [facility] showing no significant coronary artery disease.The patient was seen several months ago initially and was found to have a large ovarian cyst which was removed via hysterectomy. She is now admitted for Aortic valve and mitral valve replacement. Assessment/plan 1. Hypertension 2. Hyperlipidemia 3. Aortic valve stenosis Patient is admitted for aortic valve replacement and mitral valve replacement. This procedure was discussed with the patient by Dr. Lui. The risk of the operation including , bleeding, infection, heart attack, stroke, prolonged ICU stay, renal failure, dialysis, need for long-term rehabilitation, need for permanent pacemaker etc. was discussed with the patient and patient's family. Their questions were answered and the patient agreed to proceed with surgery 03/08/23 AVR (25 Inspiris) ALAA 03/09/23 POD 1 AAOx3 Patient reports pain controlled. Respiratory: On room air, Encourage IS, Deep Breathing, CXR reviewed chest tube outputs to 70, continue to monitor Cardiac: Remains sinus rhythm, pacing wires on standby, levo and epi weaned. GI: Tolerating diet continue Bowel regimen : DC Garcia today UO: 810 Continue PT/OT out of bed DVT prophylaxis, SCDs in place Labs reveiwed- replace electrolytes as needed Patient seen and examined by Dr. Lui. Plan of care discussed with multidisciplinary team Continue supportive care 03/10/23 POD 2 AAOx3 Patient reports pain controlled. Respiratory: On room air, Encourage IS, Deep Breathing, Chest x-ray reviewed. Cardiac: Remains sinus rhythm, pacing wires on standby, GI: Tolerating diet continue Bowel regimen Continue PT/OT out of bed DVT prophylaxis, SCDs in place Labs reveiwed- replace electrolytes as needed Patient seen and examined by Dr. Lui. Plan of care discussed with multidisciplinary team Continue supportive care Patient takes Symbicort at home routinely Will restart this. Given a dose of hydrocortisone by [facility]. Plan to DC CT . Continue PT OT out of bed. 03/11/23 POD 3 AAOx3 Patient reports pain controlled. Respiratory: On room air, Encourage IS, Deep Breathing, Chest x-ray reviewed. CT out. Cardiac: Atrial fib-this a.m., self converted. Continue p.o. amnio. Epicardial pacing wires on standby GI: Tolerating diet, continue Bowel regimen, Pending BM Continue PT/OT out of bed, Patinet walked unit yesterday DVT prophylaxis, SCDs in place Labs reveiwed- replace electrolytes as needed Patient seen and examined by Dr. Lui. Plan of care discussed with multidisciplinary team Continue supportive care, Patient back on home Symbicort 03/12/23 POD 4 AAOx3 Patient reports pain controlled. Respiratory: On room air, Encourage IS, Deep Breathing, Chest x-ray reviewed. CT out. Cardiac: Sinus rhtyhtm. Pacing wires on standby GI: Reports bowel movement this morning Continue PT/OT out of bed, patient walked the unit DVT prophylaxis, SCDs in place Labs reveiwed- replace electrolytes as needed Patient seen and examined by Dr. Lui. Plan of care discussed with multidisciplinary team Continue supportive care, Patient back on home Symbicort Okay to CVN 1. 03/13/23 POD 5 AAOx3 Patient reports pain controlled. Respiratory: On room air, Encourage IS, Deep Breathing, Chest x-ray reviewed. CT out. Cardiac: Sinus rhtyhtm. Pacing wires DC'd will obtain echo GI: Reports bowel movement this morning Continue PT/OT out of bed, patient walked the unit DVT prophylaxis, SCDs in place Labs reveiwed- replace electrolytes as needed Patient seen and examined by Dr. Lui. Plan of care discussed with multidisciplinary team Okay to DC patient home today after echo and DVt studies done Med Rec Med Rec Discharge meds: Stop taking the following medications: IRBESARTAN/HCTZ (AVALIDE 150/12.5 MG) 150 MG-12.5 MG TAB 1 TABLET ORAL DAILY. ROSUVASTATIN (CRESTOR) 5 MG TAB 5 MILLIGRAM ORAL BEDTIME. Continue taking these medications: ESCITALOPRAM (LEXAPRO) 10 MG TAB 10 MILLIGRAM ORAL DAILY. rOPINIRole (REQUIP) 0.25 MG TAB 2 MILLIGRAM ORAL THREE TIMES A DAY. BUDESONIDE/FORMOTEROL FUMARATE (SYMBICORT 80/4.5 MCG/ACT) 80 MCG-4.5 MCG/ ACTUATION INHALER 2 PUFF INHALATION TWICE DAILY. MULTIVITAMIN (MULTIPLE VITAMIN) 1 TAB TAB 1 TABLET ORAL DAILY. Start taking the following new medications: FERROUS SULFATE (FEOSOL) 325 MG (65 MG IRON) TAB 325 MILLIGRAM ORAL DAILY. Days = 14 Qty = 14 No Refills AMIODARONE (PACERONE) 200 MG TAB 200 MILLIGRAM ORAL TWICE DAILY. Days = 14 Qty = 21 No Refills Instructions: Take 200 mg BID x 1 week, then 200 mg QD x 1 week ATORVASTATIN (LIPITOR) 40 MG TAB 40 MILLIGRAM ORAL 2100 Days = 30 Qty = 30 No Refills METOPROLOL TARTRATE (LOPRESSOR) 25 MG TAB 12.5 MILLIGRAM ORAL EVERY 12 HOURS. Days = 30 Qty = 60 No Refills SPIRONOLACTONE (ALDACTONE) 25 MG TAB 25 MILLIGRAM ORAL DAILY. Days = 30 Qty = 30 No Refills ASPIRIN (ASPIRIN) 81 MG TAB.CHEW 81 MILLIGRAM ORAL DAILY. Days = 30 Qty = 30 No Refills Discharge Instructions PCP )( Discharge to: Home/Self Care Discharge Instructions Additional Discharge Routines: Attending Follow-Up )( Diet: Cardiac Follow-up Appointments Attending Physician: Attending Physician: Svitlana Lui MD Attending physician follow up timeframe: In 1-2 weeks at 1346 at 1233 RPT #:[id number] END OF REPORT [facility] 2023-03-13 10:59:00 [facility] Cardiology Progress Note REPORT#:[id number] REPORT STATUS: Signed REPORT INITIALIZATION DATE:03/13/23 TIME: 105 PATIENT: SALINA LAFLEUR UNIT #: [id number] ROOM/BED: [place] [address] : 54 AGE: 67 SEX: F ATTEND: Svitlana Lui MD ADM AUTHOR: Jensen Rivas MD REPT SERVICE DT/TIME: 03/13/23 1059 * ALL edits or amendments must be made on the electronic/computer document * Objective General VS/I O: 24 hour I O ending at 0700: 03/13 0700 03/12 1900 Intake Total 400 1160 Output Total 2900 975 Balance -2500 185 Intake, Oral 400 800 Intake, Oral 360 Supplement Number 1 Bowel Movements Output, Urine 2900 975 Patient 84.5 kg Weight Weight Standing scale Measurement Method Vital Signs: Date Time Temp Pulse Resp B/P B/P Pulse O2 O2 Flow FiO2 Mean Ox Delivery Rate 03/13 1000 72 20 86/50 65 97 03/13 0900 76 20 92/52 69 98 03/13 0800 37.1 68 18 95/54 68 100 03/13 0700 70 21 106/59 78 98 03/13 0600 67 17 120/59 85 98 03/13 0500 71 16 125/58 84 92 03/13 0400 64 17 116/56 81 92 03/13 0353 92 Room air 21 03/13 0300 61 18 114/59 80 95 03/13 0200 62 18 105/51 73 95 03/13 0100 63 16 104/56 71 95 03/13 0000 65 19 95/55 72 94 03/12 2300 64 18 104/54 75 93 03/12 2200 67 17 96/52 72 93 03/12 2126 67 19 96/53 72 93 03/12 2019 96 Room air 21 03/12 2000 37.1 03/12 1906 82 29 142/58 84 03/12 1800 79 24 101/53 74 97 03/12 1700 71 21 97/50 67 100 03/12 1601 37.2 70 32 96/52 69 95 03/12 1534 98 Room air 21 03/12 1512 78 26 127/58 84 97 03/12 1400 73 26 91/55 70 97 03/12 1300 72 23 98/50 69 98 03/12 1202 37.1 68 26 108/55 76 98 03/12 1140 98 Room air 21 03/12 1101 71 29 108/56 77 98 PATIENT WEIGHT: Weight (lb): 186 Weight (oz): 4.65 Weight (kg): 84.500 Medications: Active Meds + DC'd Last 24 Hrs Sennosides (Senna Lax 8.6 MG TABLET) 17.2 MG DAILY PO Sodium Chloride (SODIUM CHLORIDE) 10 ML ASDIR IV Spironolactone (ALDACTONE) 25 MG DAILY PO Ipratropium [place] (ATROVENT) 500 MCG RTQ2H PRN PRN INH Cyanocobalamin (Vitamin B-12 500 mcg tab) 500 MCG DAILY PO Ferrous Sulfate (FERROUS SULFATE) 325 MG DAILY PO Bisacodyl (DULCOLAX) 10 MG ONCE PRN RECTAL Atorvastatin Calcium (LIPITOR) 40 MG 2100 PO Escitalopram Oxalate (LEXAPRO) 10 MG DAILY PO Polyethylene Glycol (MIRALAX) 17 GM DAILY PO Ropinirole HCl (REQUIP) 2 MG TID PO Amiodarone HCl (CORDARONE) 200 MG TID PO Docusate Sodium (COLACE) 100 MG BID PO Metoprolol Tartrate (LOPRESSOR) 12.5 MG Q12HR PO Sennosides (Senna Lax 8.6 MG TABLET) 17.2 MG BEDTIME PO (DC) Aspirin (ASPIRIN) 81 MG DAILY PO Mupirocin (BACTROBAN 2% 22 GM OINTMENT) 1 APPLIC BID NASAL (DC) Acetaminophen (TYLENOL) 650 MG Q4H PRN PRN PO Acetaminophen (TYLENOL) 650 MG Q4H PRN PRN RECTAL Calcium Chloride (CALCIUM CHLORIDE) 1 GM ASDIR PRN IV Dextrose/Water (DEXTROSE 10% IN WATER) 125 ML ASDIR PRN IV (CKD) Dextrose/Water (DEXTROSE 10% IN WATER) 250 ML ASDIR PRN IV (CKD) Epinephrine (ADRENALIN CHLORIDE) 4 MG ASDIR IV (DC) Dextrose/Water (DEXTROSE 5% WATER) 246 ML Glucagon (GLUCAGON) 1 MG ASDIR PRN IM Insulin Human Regular (HumuLIN R) 100 UNIT ASDIR IV (DC) Sodium Chloride (SODIUM CHLORIDE 0.9%) 99 ML Magnesium Sulfate (MAGNESIUM SULFATE 4GM/SWFI 100ML) 100 ML ASDIR PRN IV Magnesium Sulfate (MAGNESIUM SULFATE 2GM/SWFI 50ML) 50 ML ASDIR PRN IV Magnesium Sulfate/Dextrose (MAGNESIUM SULFATE 1GM/D5W 100ML) 100 ML ASDIR PRN IV Nitroglycerin/Dextrose (NITROGLYCERIN 50,000MCG/D5W 250ML) 250 ML ASDIR IV (DC) Norepinephrine Bitartrate (NOREPINEPHRINE 8 MG/NS 250 ML) 250 ML TITRATE IV (DC) Ondansetron HCl (ZOFRAN) 4 MG Q6H PRN PRN IV Oxycodone HCl (ROXICODONE) 5 MG Q4H PRN PRN PO Oxycodone HCl (ROXICODONE) 10 MG Q4H PRN PRN PO Potassium Chloride (KCL 20MEQ/SWFI 100ML) 100 ML ASDIR PRN IV (DC) Sodium Bicarbonate (SODIUM BICARBONATE) 50 MEQ ASDIR PRN IV (DC) Sodium Chloride (SODIUM CHLORIDE 0.9%) 1,000 ML .Q20H IV (DC) Sodium Chloride (SODIUM CHLORIDE 0.9%) 250 ML Q24H IV (DC) Sodium Chloride (SODIUM CHLORIDE) 20 ML ASDIR IV (DC) Physical Exam General appearance: alert, awake Neck: no JVD Cardiovascular: CV assessment: regular rate and rhythm Respiratory: clear to auscultation Abdomen: soft Lower extremity: LE assessment: no edema Neuro/TICK SEWER: alert, oriented X 3, normal speech Psychiatry: normal affect Results Findings/Data: Laboratory Tests 03/13 250 Chemistry Sodium (134 - 147 mEq/L) 138 Potassium (3.4 - 5.0 mEq/L) 4.7 Chloride (100 - 108 mEq/L) 107 Carbon Dioxide (21 - 33 mEq/l) 29 Anion Gap (0 - 20) 7 BUN (7 - 25 mg/dL) 20 Creatinine (0.6 - 1.3 mg/dL) 0.6 Glomerular Filtr Rate (80 - 90) 97.7 H Glucose (77 - 141 mg/dL) 98 Calcium (8.0 - 10.5 mg/dL) 9.3 Magnesium (1.6 - 2.6 mg/dL) 2.03 Laboratory Tests 03/13 250 Hematology WBC (4.5 - 11.0 x10 3/uL) 6.2 RBC (3.54 - 5.02 x10 6/uL) 2.62 L Hgb (11.0 - 15.0 g/dL) 8.2 L Hct (33.0 - 45.0 %) 25.3 L MCV (81.0 - 99.0 fL) 96.6 MCH (27.0 - 33.0 pg) 31.3 MCHC (33.0 - 37.0 g/dL) 32.4 L RDW (11.5 - 14.5 %) 13.8 Plt Count (150 - 400 x10 3/uL) 231 MPV (7.0 - 9.0 fL) 8.9 Neut % (Auto) (56.0 - 77.0 %) 58.0 Lymph % (Auto) (14.0 - 32.0 %) 27.8 Riley % (Auto) (4.8 - 9.0 %) 10.0 H Eos % (Auto) (0.3 - 3.7 %) 3.1 Baso % (Auto) (0.0 - 2.0 %) 0.3 Neut # (Auto) (2.0 - 7.6 x10 3/uL) 3.58 Lymph # (Auto) (1.0 - 3.8 x10 3/uL) 1.72 Riley # (Auto) (0.1 - 0.8 x10 3/uL) 0.62 Eos # (Auto) (0.0 - 0.2 x10 3/uL) 0.19 Baso # (Auto) (0.0 - 0.2 x10 3/uL) 0.02 Abs Immat Gran (auto) (0.00 - 0.03 x10 3/uL) 0.05 H Immature Gran % (0.0 - 2.0 %) 0.8 Nucleated RBC % (0 - 0 %) 0.0 Nucleated RBCs # (Man) (0.0 - 0.1 x10 3/uL) 0.00 Laboratory Tests 03/13 0250 Chemistry Magnesium (1.6 - 2.6 mg/dL) 2.03 Radiology data: Recent Impressions: RADIOLOGY - XR CHEST 1 V 03/13 0746 Report Impression - Status: SIGNED Entered: 03/13/2023913 IMPRESSION: 1. Findings suggest CHF and aortic valve replacement. 2. Unchanged atelectasis and/or pneumonia at the medial lung bases. 3. Unchanged small pleural effusions. Impression By: Kwame Qiunones M.D. 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 Postop management per CT surgery 2. MR: Mild, continue medical therapy 3. Hypertension: Soft blood pressure. Monitor off BP meds. 4. A-fib: Postoperative atrial fibrillation. Had PAF yesterday morning, none overnight. Back to normal sinus rhythm. 03/13 23 post op savr pt doing well stable hemodynamics continue current treatment discusse d with cvicu nurse at 1101 RPT #:[id number] END OF REPORT [facility] 2023-03-13 08:31:00 [facility] ([facility]) Cardiothoracic Surgery Prog REPORT#:[id number] REPORT STATUS: Signed REPORT INITIALIZATION DATE:03/13/23 TIME: 830 PATIENT: SALINA LAFLEUR UNIT #: [id number] ROOM/BED: [address] : [birth year] AGE: 67 SEX: F ATTEND: Svitlana Lui MD ADM AUTHOR: Tamara Benavides Physic REPT SERVICE DT/TIME: 03/13/23 0831 * ALL edits or amendments must be made on the electronic/computer document * General Post-op: day 5 Status post: AVR (25 Inspiris) STEPHEN Subjective Chief complaint: Postop AVR Patient resting comfortable Complains of fatigue Review of Systems Constitutional: Reports: fatigue. Denies: fever. Skin: Denies: rash, swelling. Respiratory: Denies: HILL (dyspnea on exertion), SOB. Cardiovascular: Denies: chest pain, HILL (dyspnea on exertion). GI: Denies: abdominal pain. : Denies: hematuria. All systems rev neg: except as marked Objective General VS/I O Last Documented: Result Date Time Pulse Ox 100 03/13 0800 B/P 95/54 03/13 0800 B/P Mean 68 03/13 0800 Temp 98.7 03/13 0800 Pulse 68 03/13 0800 Resp 18 03/13 0800 FiO2 21 03/13 0353 O2 Delivery Room air 03/13 0353 O2 Flow Rate 1 03/09 0357 24 hour I O ending at 0700: 03/13 0700 03/12 1900 Intake Total 400 1160 Output Total 2900 975 Balance -2500 185 Intake, Oral 400 800 Intake, Oral 360 Supplement Number 1 Bowel Movements Output, Urine 2900 975 Patient 84.5 kg Weight Weight Standing scale Measurement Method PATIENT WEIGHT: Weight (lb): 186 Weight (oz): 4.65 Weight (kg): 84.500 Physical Exam General appearance: alert, awake, oriented HEENT: mucosal membranes moist Neck: full range of motion, non-tender Cardiovascular: normal heart sounds, regular rate rhythm Respiratory: aerating well, no distress Abdomen: soft, non-tender Extremities: dry, moves all Musculoskeletal: full range of motion Neuro/TICK SEWER: alert, oriented X 3 Skin: dry, intact Diagnosis, Assessment Plan Hospital course to date: This Is a 67-year-old female with a past medical history of hypertension, hyperlipidemia, aortic valve stenosis, mitral regurgitation who presents today for evaluation for aortic valve replacement and mitral valve replacement.She reports she has increased shortness of breath for the past several months. She underwent full work[facility]up [facility] with echocardiogram showing severe aortic valve stenosis with an HAILE 0.9 cm, peak gradient 37 mmHg, mean 60 mmHg. She underwent JAMES showing severe mitral regurgitation with systolic reversal pulmonary vein, with thickening of the aortic valve with masslike appearance. She underwent left heart catheterization at [facility] showing no significant coronary artery disease.The patient was seen several months ago initially and was found to have a large ovarian cyst which was removed via hysterectomy. She is now admitted for Aortic valve and mitral valve replacement. Assessment/plan 1. Hypertension 2. Hyperlipidemia 3. Aortic valve stenosis Patient is admitted for aortic valve replacement and mitral valve replacement. This procedure was discussed with the patient by Dr. Lui. The risk of the operation including , bleeding, infection, heart attack, stroke, prolonged ICU stay, renal failure, dialysis, need for long-term rehabilitation, need for permanent pacemaker etc. was discussed with the patient and patient's family. Their questions were answered and the patient agreed to proceed with surgery 03/08/23 AVR (25 Inspiris) ALAA 03/09/23 POD 1 AAOx3 Patient reports pain controlled. Respiratory: On room air, Encourage IS, Deep Breathing, CXR reviewed chest tube outputs to 70, continue to monitor Cardiac: Remains sinus rhythm, pacing wires on standby, levo and epi weaned. GI: Tolerating diet continue Bowel regimen : DC Garcia today UO: 810 Continue PT/OT out of bed DVT prophylaxis, SCDs in place Labs reveiwed- replace electrolytes as needed Patient seen and examined by Dr. Lui. Plan of care discussed with multidisciplinary team Continue supportive care 03/10/23 POD 2 AAOx3 Patient reports pain controlled. Respiratory: On room air, Encourage IS, Deep Breathing, Chest x-ray reviewed. Cardiac: Remains sinus rhythm, pacing wires on standby, GI: Tolerating diet continue Bowel regimen Continue PT/OT out of bed DVT prophylaxis, SCDs in place Labs reveiwed- replace electrolytes as needed Patient seen and examined by Dr. Lui. Plan of care discussed with multidisciplinary team Continue supportive care Patient takes Symbicort at home routinely Will restart this. Given a dose of hydrocortisone by [facility]. Plan to DC CT . Continue PT OT out of bed. 03/11/23 POD 3 AAOx3 Patient reports pain controlled. Respiratory: On room air, Encourage IS, Deep Breathing, Chest x-ray reviewed. CT out. Cardiac: Atrial fib-this a.m., self converted. Continue p.o. amnio. Epicardial pacing wires on standby GI: Tolerating diet, continue Bowel regimen, Pending BM Continue PT/OT out of bed, Patinet walked unit yesterday DVT prophylaxis, SCDs in place Labs reveiwed- replace electrolytes as needed Patient seen and examined by Dr. Lui. Plan of care discussed with multidisciplinary team Continue supportive care, Patient back on home Symbicort 03/12/23 POD 4 AAOx3 Patient reports pain controlled. Respiratory: On room air, Encourage IS, Deep Breathing, Chest x-ray reviewed. CT out. Cardiac: Sinus rhtyhtm. Pacing wires on standby GI: Reports bowel movement this morning Continue PT/OT out of bed, patient walked the unit DVT prophylaxis, SCDs in place Labs reveiwed- replace electrolytes as needed Patient seen and examined by Dr. Lui. Plan of care discussed with multidisciplinary team Continue supportive care, Patient back on home Symbicort Okay to CVN 1. 03/13/23 POD 5 AAOx3 Patient reports pain controlled. Respiratory: On room air, Encourage IS, Deep Breathing, Chest x-ray reviewed. CT out. Cardiac: Sinus rhtyhtm. Pacing wires DC'd will obtain echo GI: Reports bowel movement this morning Continue PT/OT out of bed, patient walked the unit DVT prophylaxis, SCDs in place Labs reveiwed- replace electrolytes as needed Patient seen and examined by Dr. Lui. Plan of care discussed with multidisciplinary team Okay to DC patient home today after echo and DVt studies done at 1320 at 1233 RPT #:[id number] END OF REPORT [facility] 2023-03-13 08:21:00 [facility] ([facility]) Critical Care Progress Note REPORT#:[id number] REPORT STATUS: Signed REPORT INITIALIZATION DATE:03/13/23 TIME: 820 PATIENT: SALINA LAFLEUR UNIT #: [id number] ROOM/BED: 2204-1 : 54 AGE: 67 SEX: F ATTEND: Svitlana Lui MD ADM AUTHOR: Isidoro Albarran MD REPT SERVICE DT/TIME: 03/13/23 7131 * ALL edits or amendments must be made on the electronic/computer document * Subjective Chief complaint: AVR (25 Inspiris) STEPHEN HPI: 67-year-old female with a past medical history of hypertension, hyperlipidemia, aortic valve stenosis, mitral regurgitation who was admitted for aortic and mitral valve replacement. Patient preoperatively was found to have severe aortic stenosis and severe mitral regurgitation. Intraoperatively today her mitral valve appears okay. With no significant regurgitation. Patient underwent AVR. Intraoperatively patient received 1.5 L crystalloid, 960 Cell Saver. Urine output was 900 cc. EBL was 300. Patient arrived to ICU intubated on mechanical ventilation. She was on 2 of epinephrine and 2 of Levophed. [address] Review of Systems All systems rev neg: except as marked Free Text ROS Notes Free Text ROS Notes: 10 point system reviewed were negative except mentioned HPI Objective Physical Exam Head/eyes: atraumatic, clear cornea, EOMI, PERRLA Neck: full range of motion, non-tender, no JVD Cardiovascular: normal capillary refill, normal heart sounds, regular rate and rhythm, normal S1/S2 Respiratory: aerating well, clear to auscultation, symmetric expansion, no distress Abdomen: soft, non-tender, normal bowel sounds Extremities: moves all, normal capillary refill, normal range of motion Musculoskeletal normal inspection Neuro/TICK SEWER: alert, oriented X 3, normal speech Results Findings/data: Laboratory Tests 03/13 250 Chemistry Sodium (134 - 147 mEq/L) 138 Potassium (3.4 - 5.0 mEq/L) 4.7 Chloride (100 - 108 mEq/L) 107 Carbon Dioxide (21 - 33 mEq/l) 29 Anion Gap (0 - 20) 7 BUN (7 - 25 mg/dL) 20 Creatinine (0.6 - 1.3 mg/dL) 0.6 Glomerular Filtr Rate (80 - 90) 97.7 H Glucose (77 - 141 mg/dL) 98 Calcium (8.0 - 10.5 mg/dL) 9.3 Magnesium (1.6 - 2.6 mg/dL) 2.03 Laboratory Tests 03/13 250 Hematology WBC (4.5 - 11.0 x10 3/uL) 6.2 RBC (3.54 - 5.02 x10 6/uL) 2.62 L Hgb (11.0 - 15.0 g/dL) 8.2 L Hct (33.0 - 45.0 %) 25.3 L MCV (81.0 - 99.0 fL) 96.6 MCH (27.0 - 33.0 pg) 31.3 MCHC (33.0 - 37.0 g/dL) 32.4 L RDW (11.5 - 14.5 %) 13.8 Plt Count (150 - 400 x10 3/uL) 231 MPV (7.0 - 9.0 fL) 8.9 Neut % (Auto) (56.0 - 77.0 %) 58.0 Lymph % (Auto) (14.0 - 32.0 %) 27.8 Riley % (Auto) (4.8 - 9.0 %) 10.0 H Eos % (Auto) (0.3 - 3.7 %) 3.1 Baso % (Auto) (0.0 - 2.0 %) 0.3 Neut # (Auto) (2.0 - 7.6 x10 3/uL) 3.58 Lymph # (Auto) (1.0 - 3.8 x10 3/uL) 1.72 Riley # (Auto) (0.1 - 0.8 x10 3/uL) 0.62 Eos # (Auto) (0.0 - 0.2 x10 3/uL) 0.19 Baso # (Auto) (0.0 - 0.2 x10 3/uL) 0.02 Abs Immat Gran (auto) (0.00 - 0.03 x10 3/uL) 0.05 H Immature Gran % (0.0 - 2.0 %) 0.8 Nucleated RBC % (0 - 0 %) 0.0 Nucleated RBCs # (Man) (0.0 - 0.1 x10 3/uL) 0.00 Laboratory Tests 03/13/23 0250: [Embedded Image Not Available] Results: labs reviewed, vital signs reviewed, vital signs stable Diagnosis, Assessment Plan Free text A P: Severe s/p AVR Postoperative respiratory insufficiency after cardiac surgery Hypotension - resolved Leukocytosis - resolved COPD - nebs prn Postoperative pain A-fib Patient underwent AVR today, her mitral valve appeared okay. EF was normal. On arrival to ICU patient was on a low-dose of epinephrine and Levophed, we will wean off to keep MAP at 65. Patient was still under sedation, she was on assist control ventilation, will wean to extubate. Will monitor chest tube output. Monitor urine output. Monitor kidney function, replace electrolyte as needed. Pain management. Bronchodilator as needed. Aspiration precaution. Monitor H H , transfuse as needed. GI and DVT prophylaxis. Patient will need incentive spirometry after extubation. 03/09 Patient was extubated successfully yesterday, she is on nasal cannula this morning. Will wean down oxygen to keep saturation of 92%. Incentive spirometry. Bronchodilator as needed. Pulmonary toileting. Blood pressure in the lower side, she is on 2 of epinephrine and 2 of Levophed this morning, we did stop her epinephrine initially. Will wean off Levophed to keep MAP at 65. Continue to monitor urine output. Monitor kidney function. Replace electrolyte as needed. Out of bed to chair. PT and OT. Monitor chest tube output. GI and DVT prophylaxis. Continue engine monitor. Follow-up with thoracic surgery recommendation 03/10 Patient on room air, keep sats of 92%. Incentive spirometry. Bronchodilator. Patient came off pressors this morning, she is on inhaled steroid at home, received a dose of steroid overnight which improved her blood pressure. Will continue inhaled steroid now. Monitor kidney function, urine output, replace electrolyte as needed. DC central line. Out of bed to chair. PT and OT. GI and DVT prophylaxis. teletypesetter monitor. 03/11 Patient on room air, keep sats of 92%. Incentive spirometry. Bronchodilator. Continue home Symbicort. Monitor kidney function, urine output, replace electrolyte as needed. Patient has been in A-fib, rate controlled, she has been on amnio p.o., will be started on amiodarone drip per cardiac surgery recommendation. Continue engine monitor. Out of bed to chair. PT and OT. GI and DVT prophylaxis. 03/12: IS plus bronchodilator prn. Continue home Symbicort. Monitoring kidney function and urine output with almost 3 L urine output overnight. Continues on diuretics per MAY. Replace electrolytes as needed per protocol. Does not appear to be in A-fib this morning on telemetry but may have a slightly widened WV interval. Out of bed to chair with therapies. GI DVT prophylaxis. 03/13: Pending transfer to floor. Complaining of some constipation, on doc/senna /miralax. COntinue mobilization with therapies. Good UOP 4L over past 24 hours. Home symbicort. GI and DVT ppx. Case was discussed at bedside with the nursing staff and multi-disciplinary team. Critical care time spent on patient excluding procedures: 35 minutes at 0824 RPT #:[id number] END OF REPORT [facility] 2023-03-12 15:31:00 [facility] ([facility]) Cardiothoracic Surgery Prog REPORT#:[id number] REPORT STATUS: Signed REPORT INITIALIZATION DATE:03/12/23 TIME: 153 PATIENT: SALINA LAFLEUR UNIT #: [id number] ROOM/BED: [place] [address] : 54 AGE: 67 SEX: F ATTEND: Svitlana Lui MD ADM AUTHOR: Tamara Benavides Physic REPT SERVICE DT/TIME: 03/12/23 1531 * ALL edits or amendments must be made on the electronic/computer document * General Post-op: day 4 Status post: AVR (25 Inspiris) ALAA Subjective Chief complaint: Postop AVR Patient resting comfortable Complains of fatigue Review of Systems Constitutional: Reports: fatigue. Denies: fever. Skin: Denies: rash, swelling. Respiratory: Denies: HILL (dyspnea on exertion), SOB. Cardiovascular: Denies: chest pain, HILL (dyspnea on exertion). GI: Denies: abdominal pain. : Denies: hematuria. All systems rev neg: except as marked Objective General VS/I O Last Documented: Result Date Time Pulse Ox 97 03/12 1512 B/P 127/58 03/12 1512 B/P Mean 84 03/12 1512 Pulse 78 03/12 1512 Resp 26 03/12 151 Temp 98.7 03/12 1202 FiO2 21 03/12 1140 O2 Delivery Room air 03/12 1140 O2 Flow Rate 1 03/09 0357 24 hour I O ending at 0700: 03/12 0700 03/11 1900 Intake Total 300 600 Output Total 1650 1100 Balance -1350 -500 Intake, Oral 300 600 Number Voids 4 Output, Urine 1650 1100 Patient 86.5 kg Weight Weight Standing scale Measurement Method PATIENT WEIGHT: Weight (lb): 190 Weight (oz): 11.2 Weight (kg): 86.500 Physical Exam General appearance: alert, awake, oriented HEENT: mucosal membranes moist Neck: full range of motion, non-tender Cardiovascular: normal heart sounds, regular rate rhythm Respiratory: aerating well, no distress Abdomen: soft, non-tender Extremities: dry, moves all Musculoskeletal: full range of motion Neuro/TICK SEWER: alert, oriented X 3 Skin: dry, intact Diagnosis, Assessment Plan Hospital course to date: This Is a 67-year-old female with a past medical history of hypertension, hyperlipidemia, aortic valve stenosis, mitral regurgitation who presents today for evaluation for aortic valve replacement and mitral valve replacement.She reports she has increased shortness of breath for the past several months. She underwent full work[facility]up [facility] with echocardiogram showing severe aortic valve stenosis with an HAILE 0.9 cm, peak gradient 37 mmHg, mean 60 mmHg. She underwent JAMES showing severe mitral regurgitation with systolic reversal pulmonary vein, with thickening of the aortic valve with masslike appearance. She underwent left heart catheterization at [facility] showing no significant coronary artery disease.The patient was seen several months ago initially and was found to have a large ovarian cyst which was removed via hysterectomy. She is now admitted for Aortic valve and mitral valve replacement. Assessment/plan 1. Hypertension 2. Hyperlipidemia 3. Aortic valve stenosis Patient is admitted for aortic valve replacement and mitral valve replacement. This procedure was discussed with the patient by Dr. Lui. The risk of the operation including , bleeding, infection, heart attack, stroke, prolonged ICU stay, renal failure, dialysis, need for long-term rehabilitation, need for permanent pacemaker etc. was discussed with the patient and patient's family. Their questions were answered and the patient agreed to proceed with surgery 03/08/23 AVR (25 Inspiris) ALAA 03/09/23 POD 1 AAOx3 Patient reports pain controlled. Respiratory: On room air, Encourage IS, Deep Breathing, CXR reviewed chest tube outputs to 70, continue to monitor Cardiac: Remains sinus rhythm, pacing wires on standby, levo and epi weaned. GI: Tolerating diet continue Bowel regimen : DC Garcia today UO: 810 Continue PT/OT out of bed DVT prophylaxis, SCDs in place Labs reveiwed- replace electrolytes as needed Patient seen and examined by Dr. Lui. Plan of care discussed with multidisciplinary team Continue supportive care 03/10/23 POD 2 AAOx3 Patient reports pain controlled. Respiratory: On room air, Encourage IS, Deep Breathing, Chest x-ray reviewed. Cardiac: Remains sinus rhythm, pacing wires on standby, GI: Tolerating diet continue Bowel regimen Continue PT/OT out of bed DVT prophylaxis, SCDs in place Labs reveiwed- replace electrolytes as needed Patient seen and examined by Dr. Lui. Plan of care discussed with multidisciplinary team Continue supportive care Patient takes Symbicort at home routinely Will restart this. Given a dose of hydrocortisone by [facility]. Plan to DC CT . Continue PT OT out of bed. 03/11/23 POD 3 AAOx3 Patient reports pain controlled. Respiratory: On room air, Encourage IS, Deep Breathing, Chest x-ray reviewed. CT out. Cardiac: Atrial fib-this a.m., self converted. Continue p.o. amnio. Epicardial pacing wires on standby GI: Tolerating diet, continue Bowel regimen, Pending BM Continue PT/OT out of bed, Patinet walked unit yesterday DVT prophylaxis, SCDs in place Labs reveiwed- replace electrolytes as needed Patient seen and examined by Dr. Lui. Plan of care discussed with multidisciplinary team Continue supportive care, Patient back on home Symbicort 03/12/23 POD 4 AAOx3 Patient reports pain controlled. Respiratory: On room air, Encourage IS, Deep Breathing, Chest x-ray reviewed. CT out. Cardiac: Sinus rhtyhtm. Pacing wires on standby GI: Reports bowel movement this morning Continue PT/OT out of bed, patient walked the unit DVT prophylaxis, SCDs in place Labs reveiwed- replace electrolytes as needed Patient seen and examined by Dr. Lui. Plan of care discussed with multidisciplinary team Continue supportive care, Patient back on home Symbicort Okay to CVN 1. at 1543 at 2303 RPT #:[id number] END OF REPORT [facility] 2023-03-12 11:29:00 [facility] ([facility]) Cardiology Progress Note REPORT#:[id number] REPORT STATUS: Signed REPORT INITIALIZATION DATE:03/12/23 TIME: 1128 PATIENT: SALINA LAFLEUR UNIT #: [id number] ROOM/BED: 2204-1 : 54 AGE: 67 SEX: F ATTEND: Svitlana Lui MD ADM AUTHOR: Kait Cantu REPT SERVICE DT/TIME: 03/12/231128 * ALL edits or amendments must be made on the electronic/computer document * Subjective Patient reports: No: complaints. Objective General VS/I O: 24 hour I O ending at 0700: 03/12 0700 03/11 1900 Intake Total 300 600 Output Total 1650 1100 Balance -1350 -500 Intake, Oral 300 600 Number Voids 4 Output, Urine 1650 1100 Patient 86.5 kg Weight Weight Standing scale Measurement Method Vital Signs: Date Time Temp Pulse Resp B/P B/P Pulse O2 O2 Flow FiO2 Mean Ox Delivery Rate 03/12 1101 71 29 108/56 77 98 03/12 1050 80 23 139/62 89 99 03/12 1041 69 21 97/58 72 99 03/12 1006 68 21 94/47 61 98 03/12 0900 72 21 99/53 72 97 03/12 0815 96 Room air 21 03/12 0801 37.1 67 30 98/54 73 98 03/12 0752 98 Room air 21 03/12 0700 67 25 100/60 74 94 03/12 0601 63 18 116/54 77 93 15 0500 61 18 82/52 62 94 15 0400 62 15 90/51 68 95 /15 0300 60 15 95/52 71 95 /15 0200 62 15 94/47 68 95 /15 0100 61 16 82/46 58 95 15 0003 62 24 84/47 60 96 14 2300 67 15 91/54 70 94 03/11 2200 69 18 91/55 70 94 03/11 2100 69 21 89/53 66 93 03/11 2000 36.8 03/11 2000 70 18 97/51 70 93 03/11 1901 82 38 93/53 67 95 03/11 1830 73 18 95 03/11 1801 71 21 100/52 71 96 03/11 1800 70 19 96 03/11 1700 75 19 87/52 62 97 03/11 1607 78 24 105/52 75 97 03/11 1600 36.9 03/11 1550 76 31 97 03/11 1502 96 Room air 21 03/11 1501 78 25 110/59 75 93 03/11 1500 76 26 94 03/11 1412 84 25 133/60 86 98 03/11 1300 75 25 105/55 76 98 03/11 1201 70 22 123/72 77 98 03/11 1200 36.9 03/11 1200 72 22 98 PATIENT WEIGHT: Weight (lb): 190 Weight (oz): 11.2 Weight (kg): 86.500 Medications: Active Meds + DC'd Last 24 Hrs Spironolactone (ALDACTONE) 25 MG DAILY PO Ipratropium Pacolet (ATROVENT) 500 MCG RTQ2H PRN PRN INH Cyanocobalamin (Vitamin B-12 500 mcg tab) 500 MCG DAILY PO Ferrous Sulfate (FERROUS SULFATE) 325 MG DAILY PO Spironolactone (ALDACTONE) 12.5 MG DAILY PO (DC) Bisacodyl (DULCOLAX) 10 MG ONCE PRN RECTAL Magnesium Hydroxide (MILK OF MAGNESIA) 30 ML ONCE PRN PO (DC) Atorvastatin Calcium (LIPITOR) 40 MG 2100 PO Escitalopram Oxalate (LEXAPRO) 10 MG DAILY PO Polyethylene Glycol (MIRALAX) 17 GM DAILY PO Ropinirole HCl (REQUIP) 2 MG TID PO Amiodarone HCl (CORDARONE) 200 MG TID PO Docusate Sodium (COLACE) 100 MG BID PO Metoprolol Tartrate (LOPRESSOR) 12.5 MG Q12HR PO Sennosides (Senna Lax 8.6 MG TABLET) 17.2 MG BEDTIME PO Aspirin (ASPIRIN) 81 MG DAILY PO Ipratropium Pacolet (ATROVENT) 500 MCG RTQ4H INH (DC) Mupirocin (BACTROBAN 2% 22 GM OINTMENT) 1 APPLIC BID NASAL Acetaminophen (TYLENOL) 650 MG Q4H PRN PRN PO Acetaminophen (TYLENOL) 650 MG Q4H PRN PRN RECTAL Calcium Chloride (CALCIUM CHLORIDE) 1 GM ASDIR PRN IV Dextrose/Water (DEXTROSE 10% IN WATER) 125 ML ASDIR PRN IV (CKD) Dextrose/Water (DEXTROSE 10% IN WATER) 250 ML ASDIR PRN IV (CKD) Epinephrine (ADRENALIN CHLORIDE) 4 MG ASDIR IV Dextrose/Water (DEXTROSE 5% WATER) 246 ML Glucagon (GLUCAGON) 1 MG ASDIR PRN IM Insulin Human Regular (HumuLIN R) 100 UNIT ASDIR IV (CKD) Sodium Chloride (SODIUM CHLORIDE 0.9%) 99 ML Magnesium Sulfate (MAGNESIUM SULFATE 4GM/SWFI 100ML) 100 ML ASDIR PRN IV Magnesium Sulfate (MAGNESIUM SULFATE 2GM/SWFI 50ML) 50 ML ASDIR PRN IV Magnesium Sulfate/Dextrose (MAGNESIUM SULFATE 1GM/D5W 100ML) 100 ML ASDIR PRN IV Nitroglycerin/Dextrose (NITROGLYCERIN 50,000MCG/D5W 250ML) 250 ML ASDIR IV Norepinephrine Bitartrate (NOREPINEPHRINE 8 MG/NS 250 ML) 250 ML TITRATE IV Ondansetron HCl (ZOFRAN) 4 MG Q6H PRN PRN IV Oxycodone HCl (ROXICODONE) 5 MG Q4H PRN PRN PO Oxycodone HCl (ROXICODONE) 10 MG Q4H PRN PRN PO Potassium Chloride (KCL 20MEQ/SWFI 100ML) 100 ML ASDIR PRN IV Sodium Bicarbonate (SODIUM BICARBONATE) 50 MEQ ASDIR PRN IV Sodium Chloride (SODIUM CHLORIDE 0.9%) 1,000 ML .Q20H IV Sodium Chloride (SODIUM CHLORIDE 0.9%) 250 ML Q24H IV Sodium Chloride (SODIUM CHLORIDE) 20 ML ASDIR IV Physical Exam General appearance: alert, awake Neck: no JVD Cardiovascular: CV assessment: regular rate and rhythm Respiratory: clear to auscultation Abdomen: soft Lower extremity: LE assessment: no edema Neuro/TICK SEWER: alert, oriented X 3, normal speech Psychiatry: normal affect Results Findings/Data: Laboratory Tests 03/12 0258 Chemistry Sodium (134 - 147 mEq/L) 137 Potassium (3.4 - 5.0 mEq/L) 4.4 Chloride (100 - 108 mEq/L) 103 Carbon Dioxide (21 - 33 mEq/l) 28 Anion Gap (0 - 20) 10 BUN (7 - 25 mg/dL) 18 Creatinine (0.6 - 1.3 mg/dL) 0.6 Glomerular Filtr Rate (80 - 90) 97.7 H Glucose (77 - 141 mg/dL) 101 Calcium (8.0 - 10.5 mg/dL) 8.9 Magnesium (1.6 - 2.6 mg/dL) 2.11 Laboratory Tests 03/12 0258 Hematology WBC (4.5 - 11.0 x10 3/uL) 7.0 RBC (3.54 - 5.02 x10 6/uL) 2.51 L Hgb (11.0 - 15.0 g/dL) 8.0 L Hct (33.0 - 45.0 %) 24.1 L MCV (81.0 - 99.0 fL) 96.0 MCH (27.0 - 33.0 pg) 31.9 MCHC (33.0 - 37.0 g/dL) 33.2 RDW (11.5 - 14.5 %) 14.1 Plt Count (150 - 400 x10 3/uL) 171 MPV (7.0 - 9.0 fL) 9.3 H Neut % (Auto) (56.0 - 77.0 %) 64.4 Lymph % (Auto) (14.0 - 32.0 %) 24.4 Riley % (Auto) (4.8 - 9.0 %) 9.1 H Eos % (Auto) (0.3 - 3.7 %) 1.4 Baso % (Auto) (0.0 - 2.0 %) 0.3 Neut # (Auto) (2.0 - 7.6 x10 3/uL) 4.48 Lymph # (Auto) (1.0 - 3.8 x10 3/uL) 1.70 Riley # (Auto) (0.1 - 0.8 x10 3/uL) 0.63 Eos # (Auto) (0.0 - 0.2 x10 3/uL) 0.10 Baso # (Auto) (0.0 - 0.2 x10 3/uL) 0.02 Abs Immat Gran (auto) (0.00 - 0.03 x10 3/uL) 0.03 Immature Gran % (0.0 - 2.0 %) 0.4 Nucleated RBC % (0 - 0 %) 0.0 Nucleated RBCs # (Man) (0.0 - 0.1 x10 3/uL) 0.00 Laboratory Tests 12/15 0258 Chemistry Magnesium (1.6 - 2.6 mg/dL) 2.11 Radiology data: Recent Impressions: RADIOLOGY - XR CHEST 1 V 03/12 0604 Report Impression - Status: SIGNED Entered: 03/12/2023722 IMPRESSION: There is mild pulmonary vascular congestion. There are patchy opacities in the lung bases bilaterally. This could be due to atelectasis or pneumonia. There are tiny bilateral pleural effusions. Compared to the prior exam, there has been little change. Impression By: Tato Rodriguez M.D. Results: labs reviewed, vital signs reviewed, rhythm personally rev'd Telemetry Interpretation: afib yesterday, none overnight. 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 Postop management per CT surgery 2. MR: Mild, continue medical therapy 3. Hypertension: Soft blood pressure. Monitor off BP meds. 4. A-fib: Postoperative atrial fibrillation. Had PAF yesterday morning, none overnight. Back to normal sinus rhythm. Doing well. MDM by Dr. Pham. at 1135 at 1621 RPT #:[id number] END OF REPORT [facility] 2023-03-12 11:29:00 [facility] ([facility]) Heart Failure Progress Note REPORT#:[id number] REPORT STATUS: Signed REPORT INITIALIZATION DATE:03/12/23 TIME: 1128 PATIENT: SALINA LAFLEUR UNIT #: [id number] ROOM/BED: [place] [address] : 54 AGE: 67 SEX: F ATTEND: Svitlana Lui MD ADM AUTHOR: Jared Zarate NP REPT SERVICE DT/TIME: 03/12/23 1129 * ALL edits or amendments must be made on the electronic/computer document * See Addendum Subjective HPI: This Is a 67-year-old female with a past medical history of hypertension, hyperlipidemia, aortic valve stenosis, mitral regurgitation. The patient was admitted for evaluation of severe aortic valve stenosis (HAILE 0.9 cm, peak gradient 37 mmHg, mean 60 mmHg) and severe mitral regurgitation. ECHO on 03/09/23 shows LVEF of 55-60%. 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 Per CT, she underwent left heart catheterization at [facility] showing no significant coronary artery disease. Currently, the patient is sistting in chair visitting with family, in good spirit, reports slept well last night, post op pain tolerable. Objective General VS/I O: Vital Signs Date Temp Pulse Resp B/P B/P Mean Pulse Ox FiO2 03/11-03/12 98.2-98.7 60-84 15-38 82-139/46-72 58-89 93-99 21 24 hour I O ending at 0700: 03/12 0700 03/11 1900 Intake Total 300 600 Output Total 1650 1100 Balance -1350 -500 Intake, Oral 300 600 Number Voids 4 Output, Urine 1650 1100 Patient 191 lb Weight Weight Standing scale Measurement Method PATIENT WEIGHT: Weight (lb): 190 Weight (oz): 11.2 Weight (kg): 86.500 Medications: Medication(s) Ordered: Autonomic Drugs Sig/Abdias Start time Last Medication Dose Route Stop Time Status Admin Ipratropium Pacolet 500 MCG RTQ2H PRN PRN 03/11 1316 AC INH 06/08 1315 Ipratropium Pacolet 500 MCG RTQ4H 03/08 1600 DC 03/11 INH 03/11 1316 1116 Epinephrine 4 MG ASDIR 03/08 1330 AC Dextrose/Water 246 ML IV 06/05 1329 Norepinephrine 250 ML TITRATE 03/08 1330 AC Bitartrate IV 06/05 1329 Blood Formation,Coagulation Sig/Abdias Start time Last Medication Dose Route Stop Time Status Admin Ferrous Sulfate 325 MG DAILY 03/11 09 AC 03/12 PO 06/08 0859 0831 Cardiovascular Drugs Sig/Abdias Start time Last Medication Dose Route Stop Time Status Admin Spironolactone 25 MG DAILY 03/12 09 AC 03/12 PO 06/09 0859 0832 Spironolactone 12.5 MG DAILY 03/11 900 DC 03/11 PO 06/08 0859 0754 Atorvastatin Calcium 40 MG 2100 03/09 2100 AC 03/11 PO 04/08 Amiodarone HCl 200 MG TID 03/08 2100 AC 03/12 PO 06/05 2058 0831 Metoprolol Tartrate 12.5 MG Q12HR 03/08 2100 AC 03/12 PO 06/05 2058 0832 Nitroglycerin/ 250 ML ASDIR 03/08 1330 AC Dextrose IV 06/05 1329 Central Nervous System Agents Sig/Abdias Start time Last Medication Dose Route Stop Time Status Admin Escitalopram Oxalate 10 MG DAILY 03/09 900 AC 03/12 PO 06/06 0859 0832 Ropinirole HCl 2 MG TID 03/09 900 AC 03/12 PO 06/06 0859 0831 Aspirin 81 MG DAILY 03/08 1916 AC 03/12 PO 06/05 191 0832 Acetaminophen 650 MG Q4H PRN PRN 03/08 1330 AC 03/11 PO 06/05 1329 1747 Acetaminophen 650 MG Q4H PRN PRN 03/08 1330 AC RECTAL 06/05 1329 Magnesium Sulfate 100 ML ASDIR PRN 03/08 1330 AC IV 06/05 1329 Magnesium Sulfate 50 ML ASDIR PRN 03/08 1330 AC 03/10 IV 06/05 1329 0618 Magnesium Sulfate/ 100 ML ASDIR PRN 03/08 1330 AC 03/12 Dextrose IV 06/05 1329 0524 Oxycodone HCl 5 MG Q4H PRN PRN 03/08 1330 AC 03/09 PO 03/13 1329 0750 Oxycodone HCl 10 MG Q4H PRN PRN 03/08 1330 AC 03/10 PO 03/13 1329 0305 Electrolytic, Caloric, And Holly Sig/Abdias Start time Last Medication Dose Route Stop Time Status Admin Calcium Chloride 1 GM ASDIR PRN 03/08 1330 AC IV 06/05 1329 Dextrose/Water 125 ML ASDIR PRN 03/08 1330 CKD IV 06/05 1329 Dextrose/Water 250 ML ASDIR PRN 03/08 1330 CKD IV 06/05 1329 Potassium Chloride 100 ML ASDIR PRN 03/08 1330 AC IV 06/05 1329 Sodium Bicarbonate 50 MEQ ASDIR PRN 03/08 1330 AC IV 06/05 1329 Sodium Chloride 1,000 ML .Q20H 03/08 1330 AC IV 06/05 1329 Sodium Chloride 250 ML Q24H 03/08 1330 AC IV 06/05 1329 Sodium Chloride 20 ML ASDIR 03/04 1600 AC IV 06/01 1559 Gastrointestinal Drugs Sig/Abdias Start time Last Medication Dose Route Stop Time Status Admin Bisacodyl 10 MG ONCE PRN 03/10 1200 AC 03/12 RECTAL 06/07 1159 0523 Magnesium Hydroxide 30 ML ONCE PRN 03/10 1200 DC 03/11 PO 1706 Polyethylene Glycol 17 GM DAILY 03/09 09 AC 03/12 PO 06/06 0859 0831 Docusate Sodium 100 MG BID 03/08 2100 AC 03/12 PO 06/05 2058 0834 Sennosides 17.2 MG BEDTIME 03/08 2100 AC 03/11 PO 06/05 Ondansetron HCl 4 MG Q6H PRN PRN 03/08 1330 AC IV 06/05 1329 Hormones And Synthetic Substit Sig/Abdias Start time Last Medication Dose Route Stop Time Status Admin Glucagon 1 MG ASDIR PRN 03/08 1330 AC IM 06/05 1329 Insulin Human Regular 100 UNIT ASDIR 03/08 1330 CKD Sodium Chloride 99 ML IV 06/05 1329 Skin And Mucous Membrane Agent Sig/Abdias Start time Last Medication Dose Route Stop Time Status Admin Mupirocin 1 APPLIC BID 03/08 1400 AC 03/12 NASAL 03/12 210 0834 Vitamins Sig/Abdias Start time Last Medication Dose Route Stop Time Status Admin Cyanocobalamin 500 MCG DAILY 03/11 09 AC 03/12 PO 06/08 0859 0831 Physical Exam General appearance: alert, awake, oriented, no acute distress, pleasant, conversational, no respiratory distress Cardiovascular: regular rate and rhythm Respiratory: no distress Neuro/TICK SEWER: alert, normal speech Skin: dry, normal color Psychiatry: normal mood Results Findings/data: Laboratory Tests 03/12 258 Chemistry Sodium (134 - 147 mEq/L) 137 Potassium (3.4 - 5.0 mEq/L) 4.4 Chloride (100 - 108 mEq/L) 103 Carbon Dioxide (21 - 33 mEq/l) 28 Anion Gap (0 - 20) 10 BUN (7 - 25 mg/dL) 18 Creatinine (0.6 - 1.3 mg/dL) 0.6 Glomerular Filtr Rate (80 - 90) 97.7 H Glucose (77 - 141 mg/dL) 101 Calcium (8.0 - 10.5 mg/dL) 8.9 Magnesium (1.6 - 2.6 mg/dL) 2.11 Laboratory Tests 03/12 0258 Hematology WBC (4.5 - 11.0 x10 3/uL) 7.0 RBC (3.54 - 5.02 x10 6/uL) 2.51 L Hgb (11.0 - 15.0 g/dL) 8.0 L Hct (33.0 - 45.0 %) 24.1 L MCV (81.0 - 99.0 fL) 96.0 MCH (27.0 - 33.0 pg) 31.9 MCHC (33.0 - 37.0 g/dL) 33.2 RDW (11.5 - 14.5 %) 14.1 Plt Count (150 - 400 x10 3/uL) 171 MPV (7.0 - 9.0 fL) 9.3 H Neut % (Auto) (56.0 - 77.0 %) 64.4 Lymph % (Auto) (14.0 - 32.0 %) 24.4 Riley % (Auto) (4.8 - 9.0 %) 9.1 H Eos % (Auto) (0.3 - 3.7 %) 1.4 Baso % (Auto) (0.0 - 2.0 %) 0.3 Neut # (Auto) (2.0 - 7.6 x10 3/uL) 4.48 Lymph # (Auto) (1.0 - 3.8 x10 3/uL) 1.70 Riley # (Auto) (0.1 - 0.8 x10 3/uL) 0.63 Eos # (Auto) (0.0 - 0.2 x10 3/uL) 0.10 Baso # (Auto) (0.0 - 0.2 x10 3/uL) 0.02 Abs Immat Gran (auto) (0.00 - 0.03 x10 3/uL) 0.03 Immature Gran % (0.0 - 2.0 %) 0.4 Nucleated RBC % (0 - 0 %) 0.0 Nucleated RBCs # (Man) (0.0 - 0.1 x10 3/uL) 0.00 Laboratory Tests Test Result Date Time Chemistry B-Natriuretic Peptide (0 - 100 PG/ML) 94.0 03/04 1142 Recent Impressions: RADIOLOGY - XR CHEST 1 V 03/12 0574 Report Impression - Status: SIGNED Entered: 03/12/2023 0808 IMPRESSION: There is mild pulmonary vascular congestion. There are patchy opacities in the lung bases bilaterally. This could be due to atelectasis or pneumonia. There are tiny bilateral pleural effusions. Compared to the prior exam, there has been little change. Impression By: Tato - Gregory Rodriguez M.D. Results: labs reviewed, vital signs reviewed, rhythm personally rev'd, current med profile rev'd Telemetry interpretation: SR rate 68 Diagnosis, Assessment Plan Free Text DxA P Notes Free text DxA P notes: This Is a 67-year-old female with a past medical history of hypertension, hyperlipidemia, aortic valve stenosis, mitral regurgitation. The patient was admitted for evaluation of severe aortic valve stenosis (HAILE 0.9 cm, peak gradient 37 mmHg, mean 60 mmHg) and severe mitral regurgitation. ECHO on 03/09/23 shows LVEF of 55-60%. Per CT, she underwent left heart catheterization at [facility] showing no significant coronary artery disease. 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 Severe Aortic Stenosis S/P bioprosthetic AVR (25 Inspiris valve) and Amputation of left atrial appendage on 03/08/23 BP remains fluctuated: BP 94/47, 116/54, 139/62, 108/56 SR rate 68 no SOB at rest and during conversation. Diuresed well (I O -1800cc) Moderate right ventricular systolic dysfunction tolerates spironolactonem, diuresed well Plan * discussed with Dr Perez * con't spironolactone 25mg daily (RV dysfunction) * Con't Metoprolol Tartrate 12.5mg bid, Amiodarone 200mg TID, ASA 81mg daily, and statin * MAP 70-90 * strict I O, daily wt * con't PT * Trend BMP at 1324 Addendum 1: 03/12/23 1324 by Jared Zarate SAUSAGE MACHINE OPERATOR at 1324 at 1541 RPT #:[id number] END OF REPORT [facility] 2023-03-12 11:07:00 [facility] ([facility]) Critical Care Progress Note REPORT#:[id number] REPORT STATUS: Signed REPORT INITIALIZATION DATE:03/12/23 TIME: 110 PATIENT: SALINA LAFLEUR UNIT #: [id number] ROOM/BED: [place] [address] : 54 AGE: 67 SEX: F ATTEND: Svitlana Lui MD ADM AUTHOR: Isidoro Albarran MD REPT SERVICE DT/TIME: 03/12/23 1107 * ALL edits or amendments must be made on the electronic/computer document * Subjective Chief complaint: AVR (25 Inspiris) ALAA HPI: 67-year-old female with a past medical history of hypertension, hyperlipidemia, aortic valve stenosis, mitral regurgitation who was admitted for aortic and mitral valve replacement. Patient preoperatively was found to have severe aortic stenosis and severe mitral regurgitation. Intraoperatively today her mitral valve appears okay. With no significant regurgitation. Patient underwent AVR. Intraoperatively patient received 1.5 L crystalloid, 960 Cell Saver. Urine output was 900 cc. EBL was 300. Patient arrived to ICU intubated on mechanical ventilation. She was on 2 of epinephrine and 2 of Levophed. [address] 03/11 Patient on room air, off pressors. No new issue overnight. Patient has been in A-fib with controlled rate. 03/12 GARRETT overnight. Slightly prolonged WV interval on tele, maybe 1st degree HB? CXR wet with some edema to right lung base, crackles evident on exam. Continues to diurese with 3L UOP yesterday Review of Systems All systems rev neg: except as marked Free Text ROS Notes Free Text ROS Notes: 10 point system reviewed were negative except mentioned HPI Objective General VS/I O Last Documented: Result Date Time Pulse Ox 98 03/12 1101 B/P 108/56 03/12 1101 B/P Mean 77 03/12 110 Pulse 71 03/12 1101 Resp 29 03/12 110 FiO2 21 03/12 815 O2 Delivery Room air 03/12 815 Temp 98.7 03/12 0801 O2 Flow Rate 1 03/09 0357 24 hour I O ending at 0700: 03/12 0700 03/11 1900 Intake Total 300 600 Output Total 1650 1100 Balance -1350 -500 Intake, Oral 300 600 Number Voids 4 Output, Urine 1650 1100 Patient 86.5 kg Weight Weight Standing scale Measurement Method PATIENT WEIGHT: Weight (lb): 190 Weight (oz): 11.2 Weight (kg): 86.500 Physical Exam General appearance: alert, awake, oriented Head/eyes: atraumatic, clear cornea, EOMI, PERRLA Neck: full range of motion, non-tender, no JVD Cardiovascular: normal capillary refill, normal heart sounds, regular rate and rhythm, normal S1/S2 Respiratory: crackles, decreased breath sounds, symmetric expansion, no distress Abdomen: soft, non-tender, normal bowel sounds Extremities: moves all, normal capillary refill, normal range of motion Musculoskeletal normal inspection Neuro/TICK SEWER: alert, oriented X 3, normal speech Wound/incision: Site condition: dressing clean dry, dressing intact Results Findings/data: Laboratory Tests 03/12 258 Chemistry Sodium (134 - 147 mEq/L) 137 Potassium (3.4 - 5.0 mEq/L) 4.4 Chloride (100 - 108 mEq/L) 103 Carbon Dioxide (21 - 33 mEq/l) 28 Anion Gap (0 - 20) 10 BUN (7 - 25 mg/dL) 18 Creatinine (0.6 - 1.3 mg/dL) 0.6 Glomerular Filtr Rate (80 - 90) 97.7 H Glucose (77 - 141 mg/dL) 101 Calcium (8.0 - 10.5 mg/dL) 8.9 Magnesium (1.6 - 2.6 mg/dL) 2.11 Laboratory Tests 03/12 258 Hematology WBC (4.5 - 11.0 x10 3/uL) 7.0 RBC (3.54 - 5.02 x10 6/uL) 2.51 L Hgb (11.0 - 15.0 g/dL) 8.0 L Hct (33.0 - 45.0 %) 24.1 L MCV (81.0 - 99.0 fL) 96.0 MCH (27.0 - 33.0 pg) 31.9 MCHC (33.0 - 37.0 g/dL) 33.2 RDW (11.5 - 14.5 %) 14.1 Plt Count (150 - 400 x10 3/uL) 171 MPV (7.0 - 9.0 fL) 9.3 H Neut % (Auto) (56.0 - 77.0 %) 64.4 Lymph % (Auto) (14.0 - 32.0 %) 24.4 Riley % (Auto) (4.8 - 9.0 %) 9.1 H Eos % (Auto) (0.3 - 3.7 %) 1.4 Baso % (Auto) (0.0 - 2.0 %) 0.3 Neut # (Auto) (2.0 - 7.6 x10 3/uL) 4.48 Lymph # (Auto) (1.0 - 3.8 x10 3/uL) 1.70 Riley # (Auto) (0.1 - 0.8 x10 3/uL) 0.63 Eos # (Auto) (0.0 - 0.2 x10 3/uL) 0.10 Baso # (Auto) (0.0 - 0.2 x10 3/uL) 0.02 Abs Immat Gran (auto) (0.00 - 0.03 x10 3/uL) 0.03 Immature Gran % (0.0 - 2.0 %) 0.4 Nucleated RBC % (0 - 0 %) 0.0 Nucleated RBCs # (Man) (0.0 - 0.1 x10 3/uL) 0.00 Laboratory Tests 03/12/23 0258: [Embedded Image Not Available] Radiology data Recent Impressions: RADIOLOGY - XR CHEST 1 V 03/12 3067 Report Impression - Status: SIGNED Entered: 03/12/2023 0723 IMPRESSION: There is mild pulmonary vascular congestion. There are patchy opacities in the lung bases bilaterally. This could be due to atelectasis or pneumonia. There are tiny bilateral pleural effusions. Compared to the prior exam, there has been little change. Impression By: Tato Rodriguez M.D. Results: labs reviewed, vital signs reviewed, x-ray personally reviewed Diagnosis, Assessment Plan Free text A P: Severe s/p AVR Postoperative respiratory insufficiency after cardiac surgery Hypotension - resolved Leukocytosis - resolved COPD - nebs prn Postoperative pain A-fib Patient underwent AVR today, her mitral valve appeared okay. EF was normal. On arrival to ICU patient was on a low-dose of epinephrine and Levophed, we will wean off to keep MAP at 65. Patient was still under sedation, she was on assist control ventilation, will wean to extubate. Will monitor chest tube output. Monitor urine output. Monitor kidney function, replace electrolyte as needed. Pain management. Bronchodilator as needed. Aspiration precaution. Monitor H H , transfuse as needed. GI and DVT prophylaxis. Patient will need incentive spirometry after extubation. 03/09 Patient was extubated successfully yesterday, she is on nasal cannula this morning. Will wean down oxygen to keep saturation of 92%. Incentive spirometry. Bronchodilator as needed. Pulmonary toileting. Blood pressure in the lower side, she is on 2 of epinephrine and 2 of Levophed this morning, we did stop her epinephrine initially. Will wean off Levophed to keep MAP at 65. Continue to monitor urine output. Monitor kidney function. Replace electrolyte as needed. Out of bed to chair. PT and OT. Monitor chest tube output. GI and DVT prophylaxis. Continue engine monitor. Follow-up with thoracic surgery recommendation 03/10 Patient on room air, keep sats of 92%. Incentive spirometry. Bronchodilator. Patient came off pressors this morning, she is on inhaled steroid at home, received a dose of steroid overnight which improved her blood pressure. Will continue inhaled steroid now. Monitor kidney function, urine output, replace electrolyte as needed. DC central line. Out of bed to chair. PT and OT. GI and DVT prophylaxis. teletypesetter monitor. 03/11 Patient on room air, keep sats of 92%. Incentive spirometry. Bronchodilator. Continue home Symbicort. Monitor kidney function, urine output, replace electrolyte as needed. Patient has been in A-fib, rate controlled, she has been on amnio p.o., will be started on amiodarone drip per cardiac surgery recommendation. Continue engine monitor. Out of bed to chair. PT and OT. GI and DVT prophylaxis. 03/12: IS plus bronchodilator prn. Continue home Symbicort. Monitoring kidney function and urine output with almost 3 L urine output overnight. Continues on diuretics per MAY. Replace electrolytes as needed per protocol. Does not appear to be in A-fib this morning on telemetry but may have a slightly widened WV interval. Out of bed to chair with therapies. GI DVT prophylaxis. Case was discussed at bedside with the nursing staff, respiratory therapist, pharmacist, social problems specialist and cardiothoracic surgery team. Critical care time spent on patient excluding procedures: 41 minutes at 1112 RPT #:[id number] END OF REPORT [facility] 2023-03-11 14:32:00 [facility] ([facility]) Cardiology Progress Note REPORT#:[id number] REPORT STATUS: Signed REPORT INITIALIZATION DATE:03/11/23 TIME: 1431 PATIENT: SALINA LAFLEUR UNIT #: [id number] ROOM/BED: [place] [address] : 54 AGE: 67 SEX: F ATTEND: Svitlana Lui MD ADM AUTHOR: Kait CantuCNCarlos A REPT SERVICE DT/TIME: 03/11/23 1432 * ALL edits or amendments must be made on the electronic/computer document * Subjective Comments: Out of bed to chair. Awake and alert. Objective General VS/I O: 24 hour I O ending at 0700: 03/11 0700 03/10 1900 Intake Total 240 480 Output Total 1300 600 Balance -1060 -120 Intake, Oral 240 480 Number Voids 1 Output, Urine 1300 600 Patient 87.1 kg Weight Weight Standing scale Measurement Method Vital Signs Date Temp Pulse Resp B/P B/P Mean Pulse Ox FiO2 03/10-03/11 36.6 69-107 16-31 85-133/50-76 60-88 90-99 21 PATIENT WEIGHT: Weight (lb): 192 Weight (oz): 0.36 Weight (kg): 87.100 Medications: Active Meds + DC'd Last 24 Hrs Spironolactone (ALDACTONE) 25 MG DAILY PO Ipratropium Pacolet (ATROVENT) 500 MCG RTQ2H PRN PRN INH Cyanocobalamin (Vitamin B-12 500 mcg tab) 500 MCG DAILY PO Ferrous Sulfate (FERROUS SULFATE) 325 MG DAILY PO Spironolactone (ALDACTONE) 12.5 MG DAILY PO (DC) Bisacodyl (DULCOLAX) 10 MG ONCE PRN RECTAL Magnesium Hydroxide (MILK OF MAGNESIA) 30 ML ONCE PRN PO Atorvastatin Calcium (LIPITOR) 40 MG 2100 PO Escitalopram Oxalate (LEXAPRO) 10 MG DAILY PO Polyethylene Glycol (MIRALAX) 17 GM DAILY PO Ropinirole HCl (REQUIP) 2 MG TID PO Amiodarone HCl (CORDARONE) 200 MG TID PO Docusate Sodium (COLACE) 100 MG BID PO Metoprolol Tartrate (LOPRESSOR) 12.5 MG Q12HR PO Sennosides (Senna Lax 8.6 MG TABLET) 17.2 MG BEDTIME PO Aspirin (ASPIRIN) 81 MG DAILY PO Ipratropium [place]olet (ATROVENT) 500 MCG RTQ4H INH (DC) Mupirocin (BACTROBAN 2% 22 GM OINTMENT) 1 APPLIC BID NASAL Acetaminophen (TYLENOL) 650 MG Q4H PRN PRN PO Acetaminophen (TYLENOL) 650 MG Q4H PRN PRN RECTAL Calcium Chloride (CALCIUM CHLORIDE) 1 GM ASDIR PRN IV Dextrose/Water (DEXTROSE 10% IN WATER) 125 ML ASDIR PRN IV (CKD) Dextrose/Water (DEXTROSE 10% IN WATER) 250 ML ASDIR PRN IV (CKD) Epinephrine (ADRENALIN CHLORIDE) 4 MG ASDIR IV Dextrose/Water (DEXTROSE 5% WATER) 246 ML Glucagon (GLUCAGON) 1 MG ASDIR PRN IM Insulin Human Regular (HumuLIN R) 100 UNIT ASDIR IV (CKD) Sodium Chloride (SODIUM CHLORIDE 0.9%) 99 ML Magnesium Sulfate (MAGNESIUM SULFATE 4GM/SWFI 100ML) 100 ML ASDIR PRN IV Magnesium Sulfate (MAGNESIUM SULFATE 2GM/SWFI 50ML) 50 ML ASDIR PRN IV Magnesium Sulfate/Dextrose (MAGNESIUM SULFATE 1GM/D5W 100ML) 100 ML ASDIR PRN IV Nitroglycerin/Dextrose (NITROGLYCERIN 50,000MCG/D5W 250ML) 250 ML ASDIR IV Norepinephrine Bitartrate (NOREPINEPHRINE 8 MG/NS 250 ML) 250 ML TITRATE IV Ondansetron HCl (ZOFRAN) 4 MG Q6H PRN PRN IV Oxycodone HCl (ROXICODONE) 5 MG Q4H PRN PRN PO Oxycodone HCl (ROXICODONE) 10 MG Q4H PRN PRN PO Potassium Chloride (KCL 20MEQ/SWFI 100ML) 100 ML ASDIR PRN IV Sodium Bicarbonate (SODIUM BICARBONATE) 50 MEQ ASDIR PRN IV Sodium Chloride (SODIUM CHLORIDE 0.9%) 1,000 ML .Q20H IV Sodium Chloride (SODIUM CHLORIDE 0.9%) 250 ML Q24H IV Sodium Chloride (SODIUM CHLORIDE) 20 ML ASDIR IV Physical Exam General appearance: alert, awake, oriented Neck: no JVD Cardiovascular: CV assessment: regular rate and rhythm Respiratory: clear to auscultation Abdomen: soft Lower extremity: LE assessment: no edema Neuro/TICK SEWER: alert, oriented X 3, normal speech Psychiatry: normal affect Results Findings/Data: Laboratory Tests 03/11 319 Chemistry Sodium (134 - 147 mEq/L) 134 Potassium (3.4 - 5.0 mEq/L) 4.3 Chloride (100 - 108 mEq/L) 104 Carbon Dioxide (21 - 33 mEq/l) 27 Anion Gap (0 - 20) 7 BUN (7 - 25 mg/dL) 14 Creatinine (0.6 - 1.3 mg/dL) 0.6 Glomerular Filtr Rate (80 - 90) 97.7 H Glucose (77 - 141 mg/dL) 108 Calcium (8.0 - 10.5 mg/dL) 9.2 Magnesium (1.6 - 2.6 mg/dL) 1.89 Total Bilirubin (0.0 - 1.0 mg/dL) 0.40 Direct Bilirubin (0.1 - 0.3 MG/DL) 0.20 Indirect Bilirubin (MG/DL) 0.20 AST (8 - 34 IUnit/L) 26 ALT (10 - 49 IUnit/L) 9 L Total Alk Phosphatase (20 - 125 IUnit/L) 57 Total Protein (6.4 - 8.2 g/dL) 5.9 L Albumin (3.4 - 5.0 g/dL) 3.30 L Laboratory Tests 03/11 319 Hematology WBC (4.5 - 11.0 x10 3/uL) 9.6 RBC (3.54 - 5.02 x10 6/uL) 2.76 L Hgb (11.0 - 15.0 g/dL) 8.8 L Hct (33.0 - 45.0 %) 26.7 L MCV (81.0 - 99.0 fL) 96.7 MCH (27.0 - 33.0 pg) 31.9 MCHC (33.0 - 37.0 g/dL) 33.0 RDW (11.5 - 14.5 %) 14.1 Plt Count (150 - 400 x10 3/uL) 134 L MPV (7.0 - 9.0 fL) 9.2 H Neut % (Auto) (56.0 - 77.0 %) 72.5 Lymph % (Auto) (14.0 - 32.0 %) 18.8 Riley % (Auto) (4.8 - 9.0 %) 7.4 Eos % (Auto) (0.3 - 3.7 %) 0.6 Baso % (Auto) (0.0 - 2.0 %) 0.2 Neut # (Auto) (2.0 - 7.6 x10 3/uL) 6.91 Lymph # (Auto) (1.0 - 3.8 x10 3/uL) 1.80 Riley # (Auto) (0.1 - 0.8 x10 3/uL) 0.71 Eos # (Auto) (0.0 - 0.2 x10 3/uL) 0.06 Baso # (Auto) (0.0 - 0.2 x10 3/uL) 0.02 Abs Immat Gran (auto) (0.00 - 0.03 x10 3/uL) 0.05 H Immature Gran % (0.0 - 2.0 %) 0.5 Nucleated RBC % (0 - 0 %) 0.0 Nucleated RBCs # (Man) (0.0 - 0.1 x10 3/uL) 0.00 Laboratory Tests 03/11 0319 Chemistry Magnesium (1.6 - 2.6 mg/dL) 1.89 Radiology data: Recent Impressions: RADIOLOGY - XR CHEST 1 V 03/11 5339 Report Impression - Status: SIGNED Entered: 03/11/2023 8100 IMPRESSION: There is mild pulmonary vascular congestion. There are patchy opacities in the lung bases bilaterally. This could be due to atelectasis or pneumonia. There are tiny bilateral pleural effusions. Compared to the prior exam, there has been little change. Impression By: Tato Rodriguez M.D. 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 Postop management per CT surgery 2. MR: Mild, continue medical therapy 3. Hypertension: Blood pressure meds on hold. Resume once blood pressure stabilized 4. A-fib: Postoperative atrial fibrillation. Back to normal sinus rhythm. MDM by Dr. Pham. at 1650 at 1800 RPT #:[id number] END OF REPORT [facility] 2023-03-11 12:23:00 [facility] Critical Care Progress Note REPORT#:[id number] REPORT STATUS: Signed REPORT INITIALIZATION DATE:03/11/23 TIME: 1223 PATIENT: SALINA LAFLEUR UNIT #: [id number] ROOM/BED: [place] [address] : 54 AGE: 67 SEX: F ATTEND: Svitlana Lui MD ADM AUTHOR: Franck Hsieh MD REPT SERVICE DT/TIME: 03/11/23 1223 * ALL edits or amendments must be made on the electronic/computer document * Subjective Chief complaint: AVR (25 Inspiris) STEPHEN HPI: 67-year-old female with a past medical history of hypertension, hyperlipidemia, aortic valve stenosis, mitral regurgitation who was admitted for aortic and mitral valve replacement. Patient preoperatively was found to have severe aortic stenosis and severe mitral regurgitation. Intraoperatively today her mitral valve appears okay. With no significant regurgitation. Patient underwent AVR. Intraoperatively patient received 1.5 L crystalloid, 960 Cell Saver. Urine output was 900 cc. EBL was 300. Patient arrived to ICU intubated on mechanical ventilation. She was on 2 of epinephrine and 2 of Levophed. [address] 03/11 Patient on room air, off pressors. No new issue overnight. Patient has been in A-fib with controlled rate. Review of Systems Free Text ROS Notes Free Text ROS Notes: 10 point system reviewed were negative except mentioned HPI Objective General VS/I O Last Documented: Result Date Time Pulse Ox 96 03/11 921 Pulse 69 03/11 921 Resp 23 03/11 921 B/P 85/51 03/11 901 B/P Mean 60 03/11 901 Temp 36.6 03/11 0800 O2 Delivery Room air 03/11 0404 FiO2 21 03/09 1939 O2 Flow Rate 1 03/09 0357 24 hour I O ending at 0700: 03/11 0700 03/10 1900 Intake Total 240 480 Output Total 1300 600 Balance -1060 -120 Intake, Oral 240 480 Number Voids 1 Output, Urine 1300 600 Patient 87.1 kg Weight Weight Standing scale Measurement Method PATIENT WEIGHT: Weight (lb): 192 Weight (oz): 0.36 Weight (kg): 87.100 Medications: Active Meds + DC'd Last 24 Hrs Ipratropium Pacolet (ATROVENT) 500 MCG RTQ2H PRN PRN INH Cyanocobalamin (Vitamin B-12 500 mcg tab) 500 MCG DAILY PO Ferrous Sulfate (FERROUS SULFATE) 325 MG DAILY PO Spironolactone (ALDACTONE) 12.5 MG DAILY PO Bisacodyl (DULCOLAX) 10 MG ONCE PRN RECTAL Magnesium Hydroxide (MILK OF MAGNESIA) 30 ML ONCE PRN PO Atorvastatin Calcium (LIPITOR) 40 MG 2100 PO Escitalopram Oxalate (LEXAPRO) 10 MG DAILY PO Polyethylene Glycol (MIRALAX) 17 GM DAILY PO Ropinirole HCl (REQUIP) 2 MG TID PO Amiodarone HCl (CORDARONE) 200 MG TID PO Docusate Sodium (COLACE) 100 MG BID PO Metoprolol Tartrate (LOPRESSOR) 12.5 MG Q12HR PO Sennosides (Senna Lax 8.6 MG TABLET) 17.2 MG BEDTIME PO Aspirin (ASPIRIN) 81 MG DAILY PO Ipratropium [place]olet (ATROVENT) 500 MCG RTQ4H INH Mupirocin (BACTROBAN 2% 22 GM OINTMENT) 1 APPLIC BID NASAL Acetaminophen (TYLENOL) 650 MG Q4H PRN PRN PO Acetaminophen (TYLENOL) 650 MG Q4H PRN PRN RECTAL Calcium Chloride (CALCIUM CHLORIDE) 1 GM ASDIR PRN IV Dextrose/Water (DEXTROSE 10% IN WATER) 125 ML ASDIR PRN IV (CKD) Dextrose/Water (DEXTROSE 10% IN WATER) 250 ML ASDIR PRN IV (CKD) Epinephrine (ADRENALIN CHLORIDE) 4 MG ASDIR IV Dextrose/Water (DEXTROSE 5% WATER) 246 ML Glucagon (GLUCAGON) 1 MG ASDIR PRN IM Insulin Human Regular (HumuLIN R) 100 UNIT ASDIR IV (CKD) Sodium Chloride (SODIUM CHLORIDE 0.9%) 99 ML Magnesium Sulfate (MAGNESIUM SULFATE 4GM/SWFI 100ML) 100 ML ASDIR PRN IV Magnesium Sulfate (MAGNESIUM SULFATE 2GM/SWFI 50ML) 50 ML ASDIR PRN IV Magnesium Sulfate/Dextrose (MAGNESIUM SULFATE 1GM/D5W 100ML) 100 ML ASDIR PRN IV Nitroglycerin/Dextrose (NITROGLYCERIN 50,000MCG/D5W 250ML) 250 ML ASDIR IV Norepinephrine Bitartrate (NOREPINEPHRINE 8 MG/NS 250 ML) 250 ML TITRATE IV Ondansetron HCl (ZOFRAN) 4 MG Q6H PRN PRN IV Oxycodone HCl (ROXICODONE) 5 MG Q4H PRN PRN PO Oxycodone HCl (ROXICODONE) 10 MG Q4H PRN PRN PO Potassium Chloride (KCL 20MEQ/SWFI 100ML) 100 ML ASDIR PRN IV Sodium Bicarbonate (SODIUM BICARBONATE) 50 MEQ ASDIR PRN IV Sodium Chloride (SODIUM CHLORIDE 0.9%) 1,000 ML .Q20H IV Sodium Chloride (SODIUM CHLORIDE 0.9%) 250 ML Q24H IV Sodium Chloride (SODIUM CHLORIDE) 20 ML ASDIR IV Results Findings/data: Laboratory Tests 03/11 0319 Chemistry Sodium (134 - 147 mEq/L) 134 Potassium (3.4 - 5.0 mEq/L) 4.3 Chloride (100 - 108 mEq/L) 104 Carbon Dioxide (21 - 33 mEq/l) 27 Anion Gap (0 - 20) 7 BUN (7 - 25 mg/dL) 14 Creatinine (0.6 - 1.3 mg/dL) 0.6 Glomerular Filtr Rate (80 - 90) 97.7 H Glucose (77 - 141 mg/dL) 108 Calcium (8.0 - 10.5 mg/dL) 9.2 Magnesium (1.6 - 2.6 mg/dL) 1.89 Total Bilirubin (0.0 - 1.0 mg/dL) 0.40 Direct Bilirubin (0.1 - 0.3 MG/DL) 0.20 Indirect Bilirubin (MG/DL) 0.20 AST (8 - 34 IUnit/L) 26 ALT (10 - 49 IUnit/L) 9 L Total Alk Phosphatase (20 - 125 IUnit/L) 57 Total Protein (6.4 - 8.2 g/dL) 5.9 L Albumin (3.4 - 5.0 g/dL) 3.30 L Laboratory Tests 03/11 0319 Hematology WBC (4.5 - 11.0 x10 3/uL) 9.6 RBC (3.54 - 5.02 x10 6/uL) 2.76 L Hgb (11.0 - 15.0 g/dL) 8.8 L Hct (33.0 - 45.0 %) 26.7 L MCV (81.0 - 99.0 fL) 96.7 MCH (27.0 - 33.0 pg) 31.9 MCHC (33.0 - 37.0 g/dL) 33.0 RDW (11.5 - 14.5 %) 14.1 Plt Count (150 - 400 x10 3/uL) 134 L MPV (7.0 - 9.0 fL) 9.2 H Neut % (Auto) (56.0 - 77.0 %) 72.5 Lymph % (Auto) (14.0 - 32.0 %) 18.8 Riley % (Auto) (4.8 - 9.0 %) 7.4 Eos % (Auto) (0.3 - 3.7 %) 0.6 Baso % (Auto) (0.0 - 2.0 %) 0.2 Neut # (Auto) (2.0 - 7.6 x10 3/uL) 6.91 Lymph # (Auto) (1.0 - 3.8 x10 3/uL) 1.80 Riley # (Auto) (0.1 - 0.8 x10 3/uL) 0.71 Eos # (Auto) (0.0 - 0.2 x10 3/uL) 0.06 Baso # (Auto) (0.0 - 0.2 x10 3/uL) 0.02 Abs Immat Gran (auto) (0.00 - 0.03 x10 3/uL) 0.05 H Immature Gran % (0.0 - 2.0 %) 0.5 Nucleated RBC % (0 - 0 %) 0.0 Nucleated RBCs # (Man) (0.0 - 0.1 x10 3/uL) 0.00 Laboratory Tests 03/11/23 0319: [Embedded Image Not Available] Radiology data Recent Impressions: RADIOLOGY - XR CHEST 1 V 03/11 0639 Report Impression - Status: SIGNED Entered: 03/11/2023 0740 IMPRESSION: There is mild pulmonary vascular congestion. There are patchy opacities in the lung bases bilaterally. This could be due to atelectasis or pneumonia. There are tiny bilateral pleural effusions. Compared to the prior exam, there has been little change. Impression By: Tato Rodriguez M.D. Free Text Obj Notes Free Text Obj Notes: Elderly lady not in respiratory distress Pupil equal reactive to light Neck supple Chest with sternotomy dressing, minimal basilar crackles Heart S1-S2 Abdomen soft, bowel sound present Extremities no edema TICK SEWER intact Diagnosis, Assessment Plan Free text A P: Severe s/p AVR Postoperative respiratory insufficiency after cardiac surgery Hypotension Leukocytosis COPD Postoperative pain A-fib Patient underwent AVR today, her mitral valve appeared okay. EF was normal. On arrival to ICU patient was on a low-dose of epinephrine and Levophed, we will wean off to keep MAP at 65. Patient was still under sedation, she was on assist control ventilation, will wean to extubate. Will monitor chest tube output. Monitor urine output. Monitor kidney function, replace electrolyte as needed. Pain management. Bronchodilator as needed. Aspiration precaution. Monitor H H , transfuse as needed. GI and DVT prophylaxis. Patient will need incentive spirometry after extubation. 03/09 Patient was extubated successfully yesterday, she is on nasal cannula this morning. Will wean down oxygen to keep saturation of 92%. Incentive spirometry. Bronchodilator as needed. Pulmonary toileting. Blood pressure in the lower side, she is on 2 of epinephrine and 2 of Levophed this morning, we did stop her epinephrine initially. Will wean off Levophed to keep MAP at 65. Continue to monitor urine output. Monitor kidney function. Replace electrolyte as needed. Out of bed to chair. PT and OT. Monitor chest tube output. GI and DVT prophylaxis. Continue engine monitor. Follow-up with thoracic surgery recommendation 03/10 Patient on room air, keep sats of 92%. Incentive spirometry. Bronchodilator. Patient came off pressors this morning, she is on inhaled steroid at home, received a dose of steroid overnight which improved her blood pressure. Will continue inhaled steroid now. Monitor kidney function, urine output, replace electrolyte as needed. DC central line. Out of bed to chair. PT and OT. GI and DVT prophylaxis. teletypesetter monitor. 03/11 Patient on room air, keep sats of 92%. Incentive spirometry. Bronchodilator. Continue home Symbicort. Monitor kidney function, urine output, replace electrolyte as needed. Patient has been in A-fib, rate controlled, she has been on amnio p.o., will be started on amiodarone drip per cardiac surgery recommendation. Continue engine monitor. Out of bed to chair. PT and OT. GI and DVT prophylaxis. Case was discussed at bedside with the nursing staff, respiratory therapist, pharmacist, social problems specialist and cardiothoracic surgery team. at 1922 RPT #:[id number] END OF REPORT [facility] 2023-03-11 11:12:00 [facility] ([facility] Heart Failure Progress Note REPORT#:[id number] REPORT STATUS: Signed REPORT INITIALIZATION DATE:03/11/23 TIME: 1111 PATIENT: SALINA LAFLEUR UNIT #: [id number] ROOM/BED: 2204-1 : 54 AGE: 67 SEX: F ATTEND: Svitlana Lui MD ADM AUTHOR: Jared Zarate SAUSAGE MACHINE OPERATOR REPT SERVICE DT/TIME: 03/11/23 111 * ALL edits or amendments must be made on the electronic/computer document * Jared Zarate 03/11/23 1112: Subjective HPI: This Is a 67-year-old female with a past medical history of hypertension, hyperlipidemia, aortic valve stenosis, mitral regurgitation. The patient was admitted for evaluation of severe aortic valve stenosis (HAILE 0.9 cm, peak gradient 37 mmHg, mean 60 mmHg) and severe mitral regurgitation. ECHO on 03/09/23 shows LVEF of 55-60%. 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 Per CT, she underwent left heart catheterization at [facility] showing no significant coronary artery disease. Currently, the patient is sistting in the recliner, in good spirit, reports slept well last night and hope to get stronger, family is here. Dr Perez informed pt and family of stable cardiac status, RV dysfunction and management Objective General VS/I O: Vital Signs Date Temp Pulse Resp B/P B/P Mean Pulse Ox FiO2 03/10-03/11 97.7-98.0 69-107 16-31 85-118/49-70 60-84 90-100 24 hour I O ending at 0700: 03/11 0700 03/10 1900 Intake Total 240 480 Output Total 1300 600 Balance -1060 -120 Intake, Oral 240 480 Number Voids 1 Output, Urine 1300 600 Patient 192 lb Weight Weight Standing scale Measurement Method PATIENT WEIGHT: Weight (lb): 192 Weight (oz): 0.36 Weight (kg): 87.100 Medications: Medication(s) Ordered: Autonomic Drugs Sig/Abdias Start time Last Medication Dose Route Stop Time Status Admin Ipratropium Pacolet 500 MCG RTQ2H PRN PRN 03/11 1316 AC INH 06/08 1315 Ipratropium Pacolet 500 MCG RTQ4H 03/08 1600 AC 03/11 INH 03/11 1316 0751 Epinephrine 4 MG ASDIR 03/08 1330 AC Dextrose/Water 246 ML IV 06/05 1329 Norepinephrine 250 ML TITRATE 03/08 1330 AC Bitartrate IV 06/05 1329 Blood Formation,Coagulation Sig/Abdias Start time Last Medication Dose Route Stop Time Status Admin Ferrous Sulfate 325 MG DAILY 03/11 09 AC 03/11 PO 06/08 0859 0753 Cardiovascular Drugs Sig/Abdias Start time Last Medication Dose Route Stop Time Status Admin Spironolactone 12.5 MG DAILY 03/11 0900 AC 03/11 PO 06/08 0859 0754 Atorvastatin Calcium 40 MG 2100 03/09 2100 AC 03/10 PO 04/08 Amiodarone HCl 200 MG TID 03/08 2100 AC 03/11 PO 06/05 205 075 Metoprolol Tartrate 12.5 MG Q12HR 03/08 2100 AC 03/11 PO 06/05 2058 0754 Nitroglycerin/ 250 ML ASDIR 03/08 1330 AC Dextrose IV 06/05 1329 Central Nervous System Agents Sig/Abdias Start time Last Medication Dose Route Stop Time Status Admin Escitalopram Oxalate 10 MG DAILY 03/09 900 AC 03/11 PO 06/06 0859 0752 Ropinirole HCl 2 MG TID 03/09 900 AC 03/11 PO 06/06 0859 0753 Aspirin 81 MG DAILY 03/08 1916 AC 03/11 PO 06/05 191 0752 Acetaminophen 650 MG Q4H PRN PRN 03/08 1330 AC 03/10 PO 06/05 1329 0305 Acetaminophen 650 MG Q4H PRN PRN 03/08 1330 AC RECTAL 06/05 1329 Magnesium Sulfate 100 ML ASDIR PRN 03/08 1330 AC IV 06/05 1329 Magnesium Sulfate 50 ML ASDIR PRN 03/08 1330 AC 03/10 IV 06/05 1329 0618 Magnesium Sulfate/ 100 ML ASDIR PRN 03/08 1330 AC 03/11 Dextrose IV 06/05 1329 0633 Oxycodone HCl 5 MG Q4H PRN PRN 03/08 1330 AC 03/09 PO 03/13 1329 0750 Oxycodone HCl 10 MG Q4H PRN PRN 03/08 1330 AC 03/10 PO 03/13 1329 0305 Electrolytic, Caloric, And Holly Sig/Abdias Start time Last Medication Dose Route Stop Time Status Admin Calcium Chloride 1 GM ASDIR PRN 03/08 1330 AC IV 06/05 1329 Dextrose/Water 125 ML ASDIR PRN 03/08 1330 CKD IV 06/05 1329 Dextrose/Water 250 ML ASDIR PRN 03/08 1330 CKD IV 06/05 1329 Potassium Chloride 100 ML ASDIR PRN 03/08 1330 AC IV 06/05 1329 Sodium Bicarbonate 50 MEQ ASDIR PRN 03/08 1330 AC IV 06/05 1329 Sodium Chloride 1,000 ML .Q20H 03/08 1330 AC IV 06/05 1329 Sodium Chloride 250 ML Q24H 03/08 1330 AC IV 06/05 1329 Sodium Chloride 20 ML ASDIR 03/04 1600 AC IV 06/01 1559 Gastrointestinal Drugs Sig/Abdias Start time Last Medication Dose Route Stop Time Status Admin Bisacodyl 10 MG ONCE PRN 03/10 1200 AC RECTAL 06/07 1159 Magnesium Hydroxide 30 ML ONCE PRN 03/10 1200 AC PO Polyethylene Glycol 17 GM DAILY 03/09 0900 AC 03/11 PO 06/06 0859 0752 Docusate Sodium 100 MG BID 03/08 2100 AC 03/11 PO 06/05 2058 0755 Sennosides 17.2 MG BEDTIME 03/08 2100 AC 03/10 PO 06/05 Ondansetron HCl 4 MG Q6H PRN PRN 03/08 1330 AC IV 06/05 1329 Hormones And Synthetic Substit Sig/Abdias Start time Last Medication Dose Route Stop Time Status Admin Glucagon 1 MG ASDIR PRN 03/08 1330 AC IM 06/05 1329 Insulin Human Regular 100 UNIT ASDIR 03/08 1330 CKD Sodium Chloride 99 ML IV 06/05 1329 Skin And Mucous Membrane Agent Sig/Abdias Start time Last Medication Dose Route Stop Time Status Admin Mupirocin 1 APPLIC BID 03/08 1400 AC 03/11 NASAL 03/12 2101 0755 Vitamins Sig/Abdias Start time Last Medication Dose Route Stop Time Status Admin Cyanocobalamin 500 MCG DAILY 03/11 09 AC 03/11 PO 06/08 0859 0753 Physical Exam General appearance: alert, awake, oriented, no acute distress, pleasant, conversational, no respiratory distress Cardiovascular: regular rate and rhythm Respiratory: no distress Extremities: no edema Neuro/TICK SEWER: alert, normal speech Skin: dry, normal color Psychiatry: normal mood Results Findings/data: Laboratory Tests Laboratory Tests Laboratory Tests 03/11/23 0319: [Embedded Image Not Available] 03/10/23 0320: [Embedded Image Not Available] Laboratory Tests Test Result Date Time Chemistry B-Natriuretic Peptide (0 - 100 PG/ML) 94.0 03/04 1142 Recent Impressions: RADIOLOGY - XR CHEST 1 V 03/11 0639 Report Impression - Status: SIGNED Entered: 03/11/2023 0740 IMPRESSION: There is mild pulmonary vascular congestion. There are patchy opacities in the lung bases bilaterally. This could be due to atelectasis or pneumonia. There are tiny bilateral pleural effusions. Compared to the prior exam, there has been little change. Impression By: Tato - Gregory Rodriguez M.D. Results: labs reviewed, vital signs reviewed, rhythm personally rev'd, current med profile rev'd Telemetry interpretation: ATrial fib rate 62 Diagnosis, Assessment Plan Free Text DxA P Notes Free text DxA P notes: This Is a 67-year-old female with a past medical history of hypertension, hyperlipidemia, aortic valve stenosis, mitral regurgitation. The patient was admitted for evaluation of severe aortic valve stenosis (HAILE 0.9 cm, peak gradient 37 mmHg, mean 60 mmHg) and severe mitral regurgitation. ECHO on 03/09/23 shows LVEF of 55-60%. Per CT, she underwent left heart catheterization at [facility] showing no significant coronary artery disease. 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 Severe Aortic Stenosis S/P bioprosthetic AVR (25 Inspiris valve) and Amputation of left atrial appendage on 03/08/23 BP fluctuates, 125/53, 104/65, 99/58, 97/54 currently, atrial fib rate 62lasix no SOB at rest and during conversation. Moderate right ventricular systolic dysfunction pt tolerates spironolactone 12.5mg, will increase to 25mg daily Plan * discussed with Dr Perez * increase spironolactone to 25mg daily (RV dysfunction) * Con't Metoprolol Tartrate 12.5mg bid, Amiodarone 200mg TID, ASA 81mg daily, and statin * MAP 70-90 * strict I O, daily wt * con't PT * May initiate Plavix once okay with CT surgery team * Trend BMP, lactate Sera Perez 03/11/23 1513: Attestations Physician Attestation Agree w/findings plan: Agree with the findings and plan as documented by KING I have seen and examined this patient I have reviewed the history and repeated the cordero elements I have reviewed the progress in the clinical course since the last examination I have discussed the patient's condition with other consultants and members of the care team I have independently interpreted available diagnostic studies (EKG CXR Echo Cardiac cath) * my personal evaluation is Status post bioprosthetic AVR (25 Inspiris valve) and Amputation of left atrial appendage on 03/08/23 Moderate right ventricular systolic dysfunction Moderate tricuspid regurgitation Mild mitral regurgitation Essential hypertension COPD Start spironolactone 12.5 mg p.o. daily for RV dysfunction Continue aspirin and statin May initiate Plavix once okay with CT surgery team Maintain MAP 70-90 Trend BMP, lactate I devoted my full attention for this service to the direct care of this patient and time devoted to teaching and other procedures is not included. Total time spent providing critical care (non-overlapping/non-continuous time): 35 minutes Life threatening disease VHD-status post aortic valve replacement for aortic stenosis during this admission Invasive hemodynamic monitoring RV failure: acute on chronic Organ systems impaired or failing: Cardiac at 1345 at 1522 RPT #:[id number] END OF REPORT [facility] 2023-03-11 08:07:00 [facility] Cardiothoracic Surgery Prog REPORT#:[id number] REPORT STATUS: Signed REPORT INITIALIZATION DATE:03/11/23 TIME: 08 PATIENT: SALINA LAFLEUR UNIT #: [id number] ROOM/BED: [place] [address] : 54 AGE: 67 SEX: F ATTEND: Svitlana Lui MD ADM AUTHOR: Tamara Benavides Physic REPT SERVICE DT/TIME: 03/11/23 0807 * ALL edits or amendments must be made on the electronic/computer document * General Post-op: day 3 Status post: AVR (25 Inspiris) ALAA Subjective Chief complaint: Postop AVR Patient resting comfortable Complains of fatigue Review of Systems Constitutional: Reports: fatigue. Denies: fever. Skin: Denies: rash, swelling. Respiratory: Denies: HILL (dyspnea on exertion), SOB. Cardiovascular: Denies: chest pain, HILL (dyspnea on exertion). GI: Denies: abdominal pain. : Denies: hematuria. All systems rev neg: except as marked Objective General VS/I O Last Documented: Result Date Time Pulse Ox 93 03/11 602 B/P 118/70 03/11 06 B/P Mean 84 03/11 06 Pulse 89 03/11 0602 Resp 22 03/11 06 O2 Delivery Room air 03/11 0404 Temp 97.7 03/10 1600 FiO2 21 03/09 1939 O2 Flow Rate 1 03/09 0357 24 hour I O ending at 0700: 03/11 0700 03/10 1900 Intake Total 240 480 Output Total 1300 600 Balance -1060 -120 Intake, Oral 240 480 Number Voids 1 Output, Urine 1300 600 Patient 87.1 kg Weight Weight Standing scale Measurement Method PATIENT WEIGHT: Weight (lb): 192 Weight (oz): 0.36 Weight (kg): 87.100 Physical Exam General appearance: alert, awake, oriented HEENT: mucosal membranes moist Neck: full range of motion, non-tender Cardiovascular: irregular rhythm, normal heart sounds, regular rate rhythm Respiratory: aerating well, no distress Abdomen: soft, non-tender Extremities: dry, moves all Musculoskeletal: full range of motion Neuro/TICK SEWER: alert, oriented X 3 Skin: dry, intact Diagnosis, Assessment Plan Hospital course to date: This Is a 67-year-old female with a past medical history of hypertension, hyperlipidemia, aortic valve stenosis, mitral regurgitation who presents today for evaluation for aortic valve replacement and mitral valve replacement.She reports she has increased shortness of breath for the past several months. She underwent full work-up at [facility] with echocardiogram showing severe aortic valve stenosis with an HAILE 0.9 cm, peak gradient 37 mmHg, mean 60 mmHg. She underwent JAMES showing severe mitral regurgitation with systolic reversal pulmonary vein, with thickening of the aortic valve with masslike appearance. She underwent left heart catheterization at [facility] showing no significant coronary artery disease.The patient was seen several months ago initially and was found to have a large ovarian cyst which was removed via hysterectomy. She is now admitted for Aortic valve and mitral valve replacement. Assessment/plan 1. Hypertension 2. Hyperlipidemia 3. Aortic valve stenosis Patient is admitted for aortic valve replacement and mitral valve replacement. This procedure was discussed with the patient by Dr. Lui. The risk of the operation including , bleeding, infection, heart attack, stroke, prolonged ICU stay, renal failure, dialysis, need for long-term rehabilitation, need for permanent pacemaker etc. was discussed with the patient and patient's family. Their questions were answered and the patient agreed to proceed with surgery 03/08/23 AVR (25 Inspiris) ALAA 03/09/23 POD 1 AAOx3 Patient reports pain controlled. Respiratory: On room air, Encourage IS, Deep Breathing, CXR reviewed chest tube outputs to 70, continue to monitor Cardiac: Remains sinus rhythm, pacing wires on standby, levo and epi weaned. GI: Tolerating diet continue Bowel regimen : DC Garcia today UO: 810 Continue PT/OT out of bed DVT prophylaxis, SCDs in place Labs reveiwed- replace electrolytes as needed Patient seen and examined by Dr. Lui. Plan of care discussed with multidisciplinary team Continue supportive care 03/10/23 POD 2 AAOx3 Patient reports pain controlled. Respiratory: On room air, Encourage IS, Deep Breathing, Chest x-ray reviewed. Cardiac: Remains sinus rhythm, pacing wires on standby, GI: Tolerating diet continue Bowel regimen Continue PT/OT out of bed DVT prophylaxis, SCDs in place Labs reveiwed- replace electrolytes as needed Patient seen and examined by Dr. Lui. Plan of care discussed with multidisciplinary team Continue supportive care Patient takes Symbicort at home routinely Will restart this. Given a dose of hydrocortisone by [facility]. Plan to DC CT . Continue PT OT out of bed. 03/11/23 POD 3 AAOx3 Patient reports pain controlled. Respiratory: On room air, Encourage IS, Deep Breathing, Chest x-ray reviewed. CT out. Cardiac: Atrial fib-this a.m., self converted. Continue p.o. amnio. Epicardial pacing wires on standby GI: Tolerating diet, continue Bowel regimen, Pending BM Continue PT/OT out of bed, Patinet walked unit yesterday DVT prophylaxis, SCDs in place Labs reveiwed- replace electrolytes as needed Patient seen and examined by Dr. Lui. Plan of care discussed with multidisciplinary team Continue supportive care, Patient back on home Symbicort at 1416 at 2300 RPT #:[id number] END OF REPORT [facility] 2023-03-10 13:32:00 [facility] ([facility]) Cardiology Progress Note REPORT#:[id number] REPORT STATUS: Signed REPORT INITIALIZATION DATE:03/10/23 TIME: 1331 PATIENT: SALINA LAFLEUR UNIT #: [id number] ROOM/BED: 2204-1 : 54 AGE: 67 SEX: F ATTEND: Svitlana Lui MD ADM AUTHOR: Elisa Pham MD REPT SERVICE DT/TIME: 03/10/231331 * ALL edits or amendments must be made on the electronic/computer document * Subjective Free Text Subj Notes Free Text Subj Notes: Doing okay, no chest pain or shortness of breath Objective General VS/I O: 24 hour I O ending at 0700: 03/10 0700 03/09 1900 Intake Total 1478.00 3496.00 Output Total 900 970 Balance 578.00 2526.00 Intake, IV 1078.00 1696.00 Intake, Oral 400 1320 Intake, Oral 480 Supplement Number 3 Incontinent Voids Output, Chest 110 Tube Drainage Output, Urine 900 860 Patient 86.5 kg 83.461 kg Weight Weight Standing scale Measurement Method Vital Signs: Date Time Temp Pulse Resp B/P B/P Pulse O2 O2 Flow FiO2 Mean Ox Delivery Rate 03/10 0733 94 Room air 03/10 0632 65 17 94 03/10 0630 64 17 116/58 79 95 03/10 0615 65 17 92/51 66 94 03/10 0600 70 19 92/52 65 95 03/10 0556 67 21 93/52 67 95 03/10 0516 67 19 99/62 75 96 03/10 0512 67 20 115/59 78 92 03/10 0500 77 25 97 / 0430 68 17 111/54 78 93 03/10 0415 67 17 112/55 79 95 03/10 0400 67 19 118/58 83 100 03/10 0345 67 17 104/57 74 96 03/10 0330 65 17 95/52 68 93 03/10 0315 66 18 95/51 68 94 03/10 0300 65 20 87/52 64 96 03/10 0246 75 22 80/46 56 78 / 0230 66 16 97/55 71 95 12/13 0215 64 16 95/51 67 95 12/13 0200 64 17 97/56 72 93 12/13 0145 64 17 97/58 73 95 12/13 0130 65 18 96/56 71 94 12/13 0115 66 18 95/52 68 93 12/13 0100 68 16 86/53 65 91 12/13 0045 68 18 89/52 66 92 12/13 0030 69 16 105/61 78 94 12/13 0015 68 16 96/64 75 93 12/13 0000 66 17 96/58 70 92 12/12 2345 68 17 98/59 74 93 12/12 2330 67 17 99/58 73 100 12/12 2315 68 18 96/54 71 93 12/12 2300 68 19 104/59 79 93 12/12 2245 67 19 102/57 74 92 12/12 2231 70 20 96/55 70 93 12/12 2222 68 18 96/53 69 92 12/12 2215 67 19 101/55 74 92 12/12 2200 68 20 101/56 76 93 12/12 2145 65 19 101/53 73 93 12/12 2130 65 20 107/54 78 95 12/12 2115 66 19 95/47 68 92 12/12 2100 65 19 99/52 72 93 12/12 2045 63 19 105/54 75 93 12/12 2030 64 19 108/56 77 95 1212 2014 68 20 116/55 79 94 12/12 1999 98.9 12/12 1999 65 18 94/53 69 92 12/12 1939 92 Room air 21 12 1745 70 18 92/53 67 93 12/12 1730 72 20 89/52 64 93 12/12 1715 75 25 88/49 64 91 12/12 1700 68 21 95/52 71 96 12/12 1645 67 23 100/56 75 94 12/12 1630 68 23 100/55 72 96 12/12 1615 68 23 93/54 71 96 12/12 1600 64 18 97/55 73 100 12/12 1546 65 20 95/50 67 94 12/12 1530 65 21 104/55 76 96 12/12 1516 65 19 95/53 70 95 12/12 1500 97.5 65 19 94/53 68 95 12/12 1445 65 21 93/55 68 94 12/12 1430 65 20 96/53 71 94 03/09 1415 71 27 89/53 66 98 03/09 1400 67 19 88/54 66 94 03/09 1345 65 21 99/57 76 94 PATIENT WEIGHT: Weight (lb): 190 Weight (oz): 11.2 Weight (kg): 86.500 Medications: Active Meds + DC'd Last 24 Hrs Ipratropium Pacolet (ATROVENT) 500 MCG RTQ2H PRN PRN INH Cyanocobalamin (Vitamin B-12 500 mcg tab) 500 MCG DAILY PO Ferrous Sulfate (FERROUS SULFATE) 325 MG DAILY PO Bisacodyl (DULCOLAX) 10 MG ONCE PRN RECTAL Magnesium Hydroxide (MILK OF MAGNESIA) 30 ML ONCE PRN PO Budesonide (PULMICORT RESPULES) 0.5 MG RTONCE ONE INH (DC) Potassium Chloride (POTASSIUM CHLORIDE 20MEQ TAB.ER) 20 MEQ ONCE ONE PO (DC) Hydrocortisone Sodium Succinate (Solu-CORTEF) 100 MG ONCE ONE IV (DC) Hydrocortisone (CORTEF) 100 MG ONCE ONE PO (CAN) Atorvastatin Calcium (LIPITOR) 40 MG 2100 PO Albumin Human (ALBUMINAR 5% 12.5GM/250ML) 250 ML STAT STA IV (DC) Escitalopram Oxalate (LEXAPRO) 10 MG DAILY PO Polyethylene Glycol (MIRALAX) 17 GM DAILY PO Ropinirole HCl (REQUIP) 2 MG TID PO Verapamil HCl (ISOPTIN) 16.6 MG .Q24H ONE IV (DC) Heparin Sodium (Porcine) (HEPARIN SODIUM) 1,660 UNIT Sodium Bicarbonate (SODIUM BICARBONATE) 0.7 ML Nitroglycerin/Dextrose (NITROGLYCERIN 50MG/D5W 250ML) 8.3 MG Lactated Ringer's (LACTATED RINGERS) 949.5 ML Amiodarone HCl (CORDARONE) 200 MG TID PO Docusate Sodium (COLACE) 100 MG BID PO Metoprolol Tartrate (LOPRESSOR) 12.5 MG Q12HR PO Sennosides (Senna Lax 8.6 MG TABLET) 17.2 MG BEDTIME PO Aspirin (ASPIRIN) 81 MG DAILY PO Ipratropium Pacolet (ATROVENT) 500 MCG RTQ4H INH Mupirocin (BACTROBAN 2% 22 GM OINTMENT) 1 APPLIC BID NASAL Acetaminophen (TYLENOL) 650 MG Q4H PRN PRN PO Acetaminophen (TYLENOL) 650 MG Q4H PRN PRN RECTAL Calcium Chloride (CALCIUM CHLORIDE) 1 GM ASDIR PRN IV Dextrose/Water (DEXTROSE 10% IN WATER) 125 ML ASDIR PRN IV (CKD) Dextrose/Water (DEXTROSE 10% IN WATER) 250 ML ASDIR PRN IV (CKD) Epinephrine (ADRENALIN CHLORIDE) 4 MG ASDIR IV Dextrose/Water (DEXTROSE 5% WATER) 246 ML Glucagon (GLUCAGON) 1 MG ASDIR PRN IM Insulin Human Regular (HumuLIN R) 100 UNIT ASDIR IV (CKD) Sodium Chloride (SODIUM CHLORIDE 0.9%) 99 ML Magnesium Sulfate (MAGNESIUM SULFATE 4GM/SWFI 100ML) 100 ML ASDIR PRN IV Magnesium Sulfate (MAGNESIUM SULFATE 2GM/SWFI 50ML) 50 ML ASDIR PRN IV Magnesium Sulfate/Dextrose (MAGNESIUM SULFATE 1GM/D5W 100ML) 100 ML ASDIR PRN IV Nitroglycerin/Dextrose (NITROGLYCERIN 50,000MCG/D5W 250ML) 250 ML ASDIR IV Norepinephrine Bitartrate (NOREPINEPHRINE 8 MG/NS 250 ML) 250 ML TITRATE IV Ondansetron HCl (ZOFRAN) 4 MG Q6H PRN PRN IV Oxycodone HCl (ROXICODONE) 5 MG Q4H PRN PRN PO Oxycodone HCl (ROXICODONE) 10 MG Q4H PRN PRN PO Potassium Chloride (KCL 20MEQ/SWFI 100ML) 100 ML ASDIR PRN IV Sodium Bicarbonate (SODIUM BICARBONATE) 50 MEQ ASDIR PRN IV Sodium Chloride (SODIUM CHLORIDE 0.9%) 1,000 ML .Q20H IV Sodium Chloride (SODIUM CHLORIDE 0.9%) 250 ML Q24H IV Sodium Chloride (SODIUM CHLORIDE) 20 ML ASDIR IV Physical Exam General appearance: alert, awake, oriented Head/Eyes: PERRLA Neck: no JVD Cardiovascular: CV assessment: regular rate and rhythm Respiratory: clear to auscultation Abdomen: soft Neuro/TICK SEWER: alert, oriented X 3, normal speech Psychiatry: normal affect Results Findings/Data: Laboratory Tests 03/10 0320 Chemistry Sodium (134 - 147 mEq/L) 137 Potassium (3.4 - 5.0 mEq/L) 3.9 Chloride (100 - 108 mEq/L) 104 Carbon Dioxide (21 - 33 mEq/l) 29 Anion Gap (0 - 20) 8 BUN (7 - 25 mg/dL) 13 Creatinine (0.6 - 1.3 mg/dL) 0.6 Glomerular Filtr Rate (80 - 90) 97.7 H Glucose (77 - 141 mg/dL) 126 Calcium (8.0 - 10.5 mg/dL) 8.9 Magnesium (1.6 - 2.6 mg/dL) 1.70 Total Bilirubin (0.0 - 1.0 mg/dL) 0.50 Direct Bilirubin (0.1 - 0.3 MG/DL) 0.30 Indirect Bilirubin (MG/DL) 0.20 AST (8 - 34 IUnit/L) 29 ALT (10 - 49 IUnit/L) 8 L Total Alk Phosphatase (20 - 125 IUnit/L) 44 Total Protein (6.4 - 8.2 g/dL) 5.5 L Albumin (3.4 - 5.0 g/dL) 3.40 Laboratory Tests 03/10 0320 Hematology WBC (4.5 - 11.0 x10 3/uL) 9.7 RBC (3.54 - 5.02 x10 6/uL) 2.66 L Hgb (11.0 - 15.0 g/dL) 8.4 L Hct (33.0 - 45.0 %) 26.2 L MCV (81.0 - 99.0 fL) 98.5 MCH (27.0 - 33.0 pg) 31.6 MCHC (33.0 - 37.0 g/dL) 32.1 L RDW (11.5 - 14.5 %) 14.4 Plt Count (150 - 400 x10 3/uL) 119 L MPV (7.0 - 9.0 fL) 9.2 H Neut % (Auto) (56.0 - 77.0 %) 71.3 Lymph % (Auto) (14.0 - 32.0 %) 19.9 Riley % (Auto) (4.8 - 9.0 %) 7.8 Eos % (Auto) (0.3 - 3.7 %) 0.2 L Baso % (Auto) (0.0 - 2.0 %) 0.2 Neut # (Auto) (2.0 - 7.6 x10 3/uL) 6.90 Lymph # (Auto) (1.0 - 3.8 x10 3/uL) 1.92 Riley # (Auto) (0.1 - 0.8 x10 3/uL) 0.75 Eos # (Auto) (0.0 - 0.2 x10 3/uL) 0.02 Baso # (Auto) (0.0 - 0.2 x10 3/uL) 0.02 Abs Immat Gran (auto) (0.00 - 0.03 x10 3/uL) 0.06 H Immature Gran % (0.0 - 2.0 %) 0.6 Nucleated RBC % (0 - 0 %) 0.0 Nucleated RBCs # (Man) (0.0 - 0.1 x10 3/uL) 0.00 Laboratory Tests 03/10 0320 Chemistry Magnesium (1.6 - 2.6 mg/dL) 1.70 Radiology data: Recent Impressions: RADIOLOGY - XR CHEST 1 V 03/10 0520 Report Impression - Status: SIGNED Entered: 03/10/202357 IMPRESSION: There is mild pulmonary vascular prominence. There are minimal patchy opacities in the lung bases bilaterally. This could be due to atelectasis or pneumonia. Compared to the prior exam, there has been little change. Impression By: Tato Rodriguez M.D. 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 MR: Mild, medical therapy 3. Hypertension: Blood pressure meds on hold. Resume once blood pressure stabilized 4. A-fib: Patient went to A-fib this morning rate controlled, continue to monitor she has few episodes of pauses and she has a backup epicardial pacer. at 1246 RPT #:[id number] END OF REPORT [facility] 2023-03-10 13:20:00 [facility] ([facility] Heart Failure Progress Note REPORT#:[id number] REPORT STATUS: Signed REPORT INITIALIZATION DATE:03/10/23 TIME: 1320 PATIENT: SALINA LAFLEUR UNIT #: [id number] ROOM/BED: [place] [address] : 54 AGE: 67 SEX: F ATTEND: Svitlana Lui MD ADM AUTHOR: Jared Zarate SAUSAGE MACHINE OPERATOR REPT SERVICE DT/TIME: 03/10/23 1320 * ALL edits or amendments must be made on the electronic/computer document * Jared Zarate 03/10/23 1320: Subjective HPI: This Is a 67-year-old female with a past medical history of hypertension, hyperlipidemia, aortic valve stenosis, mitral regurgitation. The patient was admitted for evaluation of severe aortic valve stenosis (HAILE 0.9 cm, peak gradient 37 mmHg, mean 60 mmHg) and severe mitral regurgitation. ECHO on 03/09/23 shows LVEF of 55-60%. 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 Per CT, she underwent left heart catheterization at [facility] showing no significant coronary artery disease. Currently, the patient is sistting in the recliner, no complaints, family is here. Dr Perez informed pt and family of stable cardiac status, RV dysfunction and management Objective General VS/I O: Vital Signs Date Temp Pulse Resp B/P B/P Mean Pulse Ox FiO2 03/09-03/10 98.9 63-83 16-25 80-125/46-65 56-83 78-100 21 24 hour I O ending at 0700: 03/10 0700 03/09 1900 Intake Total 1478.00 3496.00 Output Total 900 970 Balance 578.00 2526.00 Intake, IV 1078.00 1696.00 Intake, Oral 400 1320 Intake, Oral 480 Supplement Number 3 Incontinent Voids Output, Chest 110 Tube Drainage Output, Urine 900 860 Patient 191 lb 184 lb Weight Weight Standing scale Measurement Method PATIENT WEIGHT: Weight (lb): 190 Weight (oz): 11.2 Weight (kg): 86.500 Medications: Medication(s) Ordered: Autonomic Drugs Sig/Abdias Start time Last Medication Dose Route Stop Time Status Admin Ipratropium Pacolet 500 MCG RTQ2H PRN PRN 03/11 1316 AC INH 06/08 1315 Ipratropium Pacolet 500 MCG RTQ4H 03/08 1600 AC 03/10 INH 03/11 1316 1154 Epinephrine 4 MG ASDIR 03/08 1330 AC Dextrose/Water 246 ML IV 06/05 1329 Norepinephrine 250 ML TITRATE 03/08 1330 AC Bitartrate IV 06/05 1329 Blood Derivatives Sig/Abdias Start time Last Medication Dose Route Stop Time Status Admin Albumin Human 250 ML STAT STA 03/09 1857 DC 03/09 IV 03/09 1926 1951 Blood Formation,Coagulation Sig/Abdias Start time Last Medication Dose Route Stop Time Status Admin Ferrous Sulfate 325 MG DAILY 03/11 09 AC PO 06/08 0859 Cardiovascular Drugs Sig/Abdias Start time Last Medication Dose Route Stop Time Status Admin Spironolactone 12.5 MG DAILY 03/10 1545 UNVr PO 06/07 1544 Atorvastatin Calcium 40 MG 2100 03/09 2100 AC 03/09 PO 04/08 205 211 Verapamil HCl 16.6 MG .Q24H ONE 03/09 0500 DC Heparin Sodium 1,660 UNIT IV 03/10 0459 (Porcine) Sodium Bicarbonate 0.7 ML Nitroglycerin/ 8.3 MG Dextrose Lactated Ringer's 949.5 ML Amiodarone HCl 200 MG TID 03/08 2100 AC 03/10 PO 06/05 205 0753 Metoprolol Tartrate 12.5 MG Q12HR 03/08 2100 AC PO 06/05 205 Nitroglycerin/ 250 ML ASDIR 03/08 1330 AC Dextrose IV 06/05 1329 Central Nervous System Agents Sig/Abdias Start time Last Medication Dose Route Stop Time Status Admin Escitalopram Oxalate 10 MG DAILY 03/09 900 AC 03/10 PO 06/06 0859 0752 Ropinirole HCl 2 MG TID 03/09 09 AC 03/10 PO 06/06 0859 0752 Aspirin 81 MG DAILY 03/08 1916 AC 03/10 PO 06/05 1915 0752 Acetaminophen 650 MG Q4H PRN PRN 03/08 1330 AC 03/10 PO 06/05 1329 0305 Acetaminophen 650 MG Q4H PRN PRN 03/08 1330 AC RECTAL 06/05 1329 Magnesium Sulfate 100 ML ASDIR PRN 03/08 1330 AC IV 06/05 1329 Magnesium Sulfate 50 ML ASDIR PRN 03/08 1330 AC 03/10 IV 06/05 1329 0618 Magnesium Sulfate/ 100 ML ASDIR PRN 03/08 1330 AC Dextrose IV 06/05 1329 Oxycodone HCl 5 MG Q4H PRN PRN 03/08 1330 AC 03/09 PO 03/13 1329 0750 Oxycodone HCl 10 MG Q4H PRN PRN 03/08 1330 AC 03/10 PO 03/13 1329 0305 Electrolytic, Caloric, And Holly Sig/Abdias Start time Last Medication Dose Route Stop Time Status Admin Potassium Chloride 20 MEQ ONCE ONE 03/10 0630 DC 03/10 PO 03/10 0631 0752 Calcium Chloride 1 GM ASDIR PRN 03/08 1330 AC IV 06/05 1329 Dextrose/Water 125 ML ASDIR PRN 03/08 1330 CKD IV 06/05 1329 Dextrose/Water 250 ML ASDIR PRN 03/08 1330 CKD IV 06/05 1329 Potassium Chloride 100 ML ASDIR PRN 03/08 1330 AC IV 06/05 1329 Sodium Bicarbonate 50 MEQ ASDIR PRN 03/08 1330 AC IV 06/05 1329 Sodium Chloride 1,000 ML .Q20H 03/08 1330 AC IV 06/05 1329 Sodium Chloride 250 ML Q24H 03/08 1330 AC IV 06/05 1329 Sodium Chloride 20 ML ASDIR 03/04 1600 AC IV 06/01 1559 Eye, Ear, Nose And Throat (Een Sig/Abdias Start time Last Medication Dose Route Stop Time Status Admin Budesonide 0.5 MG RTONCE ONE 03/10 0700 DC 03/10 INH 03/10 0701 0734 Gastrointestinal Drugs Sig/Abdias Start time Last Medication Dose Route Stop Time Status Admin Bisacodyl 10 MG ONCE PRN 03/10 1200 AC RECTAL 06/07 1159 Magnesium Hydroxide 30 ML ONCE PRN 03/10 1200 AC PO Polyethylene Glycol 17 GM DAILY 03/09 0900 AC 03/10 PO 06/06 0859 0752 Docusate Sodium 100 MG BID 03/08 2100 AC 03/10 PO 06/05 2058 075 Sennosides 17.2 MG BEDTIME 03/08 2100 AC 03/09 PO 06/05 2058 211 Ondansetron HCl 4 MG Q6H PRN PRN 03/08 1330 AC IV 06/05 1329 Hormones And Synthetic Substit Sig/Abdias Start time Last Medication Dose Route Stop Time Status Admin Hydrocortisone 100 MG ONCE ONE 03/09 2145 DC 03/09 Sodium Succinate IV 03/09 2146 221 Hydrocortisone 100 MG ONCE ONE 03/09 2130 CAN PO 03/09 213 Glucagon 1 MG ASDIR PRN 03/08 1330 AC IM 06/05 1329 Insulin Human Regular 100 UNIT ASDIR 03/08 1330 CKD Sodium Chloride 99 ML IV 06/05 1329 Skin And Mucous Membrane Agent Sig/Abdias Start time Last Medication Dose Route Stop Time Status Admin Mupirocin 1 APPLIC BID 03/08 1400 AC 03/10 NASAL 03/12 2101 0753 Vitamins Sig/Abdias Start time Last Medication Dose Route Stop Time Status Admin Cyanocobalamin 500 MCG DAILY 03/11 0900 AC PO 06/08 0859 Physical Exam General appearance: alert, awake, no acute distress, pleasant, no respiratory distress Cardiovascular: regular rate and rhythm Respiratory: no distress Extremities: no edema Neuro/TICK SEWER: alert, normal speech Skin: dry, normal color Psychiatry: normal mood Results Findings/data: 03/10/23 0320: [Embedded Image Not Available] 03/09/23 0344: [Embedded Image Not Available] Laboratory Tests Test Result Date Time Chemistry B-Natriuretic Peptide (0 - 100 PG/ML) 94.0 03/04 1142 Recent Impressions: RADIOLOGY - XR CHEST 1 V 03/10 0520 Report Impression - Status: SIGNED Entered: 03/10/2023 0657 IMPRESSION: There is mild pulmonary vascular prominence. There are minimal patchy opacities in the lung bases bilaterally. This could be due to atelectasis or pneumonia. Compared to the prior exam, there has been little change. Impression By: Tato Rodriguez M.D. Telemetry interpretation: atrial fib rate 78 Diagnosis, Assessment Plan Free Text DxA P Notes Free text DxA P notes: This Is a 67-year-old female with a past medical history of hypertension, hyperlipidemia, aortic valve stenosis, mitral regurgitation. The patient was admitted for evaluation of severe aortic valve stenosis (HAILE 0.9 cm, peak gradient 37 mmHg, mean 60 mmHg) and severe mitral regurgitation. ECHO on 03/09/23 shows LVEF of 55-60%. Per CT, she underwent left heart catheterization at [facility] showing no significant coronary artery disease. 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 Severe Aortic Stenosis S/P bioprosthetic AVR (25 Inspiris valve) and Amputation of left atrial appendage on 03/08/23 BP fluctuates, 125/53, 104/65, 99/58, 97/54 SR rate 78 off all pressor drips no SOB at rest and during conversation. Moderate right ventricular systolic dysfunction start Spironolactone 12.5mg daily, per Dr Perez Plan * discussed with Dr Perez * Con't Metoprolol Tartrate 12.5mg bid, Amiodarone 200mg TID, ASA 81mg daily * start spironolactone 12.5mg daily * Keep CVP 8-10 * MAP 70-90 * strict I O, daily wt * con't PT * Continue aspirin and statin * May initiate Plavix once okay with CT surgery team * Trend BMP, lactate Sera Perez 03/11/23 1516: Attestations Physician Attestation Agree w/findings plan: Agree with the findings and plan as documented by KING I have seen and examined this patient I have reviewed the history and repeated the cordero elements I have reviewed the progress in the clinical course since the last examination I have discussed the patient's condition with other consultants and members of the care team I have independently interpreted available diagnostic studies (EKG CXR Echo Cardiac cath) * my personal evaluation is Status post bioprosthetic AVR (25 Inspiris valve) and Amputation of left atrial appendage on 03/08/23 Moderate right ventricular systolic dysfunction Moderate tricuspid regurgitation Mild mitral regurgitation Essential hypertension COPD Increase spironolactone to 25 mg p.o. daily for RV dysfunction Continue aspirin and statin May initiate Plavix once okay with CT surgery team Maintain MAP 70-90 Trend BMP, lactate I devoted my full attention for this service to the direct care of this patient and time devoted to teaching and other procedures is not included. Total time spent providing critical care (non-overlapping/non-continuous time): 35 minutes Life threatening disease VHD-status post aortic valve replacement for aortic stenosis during this admission Invasive hemodynamic monitoring RV failure: acute on chronic Organ systems impaired or failing: Cardiac at 1553 at 1522 RPT #:[id number] END OF REPORT [facility] 2023-03-10 11:51:00 [facility] ([facility]) Critical Care Progress Note REPORT#:[id number] REPORT STATUS: Signed REPORT INITIALIZATION DATE:03/10/23 TIME: 1151 PATIENT: SALINA LAFLEUR UNIT #: [id number] ROOM/BED: [place] [address] : 54 AGE: 67 SEX: F ATTEND: Svitlana Lui MD ADM AUTHOR: Franck Hsieh MD REPT SERVICE DT/TIME: 03/10/23 1151 * ALL edits or amendments must be made on the electronic/computer document * Subjective Chief complaint: AVR (25 Inspiris) ALAA HPI: 67-year-old female with a past medical history of hypertension, hyperlipidemia, aortic valve stenosis, mitral regurgitation who was admitted for aortic and mitral valve replacement. Patient preoperatively was found to have severe aortic stenosis and severe mitral regurgitation. Intraoperatively today her mitral valve appears okay. With no significant regurgitation. Patient underwent AVR. Intraoperatively patient received 1.5 L crystalloid, 960 Cell Saver. Urine output was 900 cc. EBL was 300. Patient arrived to ICU intubated on mechanical ventilation. She was on 2 of epinephrine and 2 of Levophed. [address] 03/10 Patient on room air, off pressors since this morning. Received a dose of steroid overnight. Review of Systems Free Text ROS Notes Free Text ROS Notes: 10 point system reviewed were negative except mentioned HPI Objective General VS/I O Last Documented: Result Date Time Pulse Ox 94 03/10 0733 O2 Delivery Room air 03/10 07 Pulse 65 03/10 0632 Resp 17 03/10 0632 B/P 116/58 03/10 0630 B/P Mean 79 03/10 0630 Temp 37.2 03/09 2000 FiO2 21 03/09 1939 O2 Flow Rate 1 03/09 0357 24 hour I O ending at 0700: 03/10 0700 03/09 1900 Intake Total 1478.00 3496.00 Output Total 900 970 Balance 578.00 2526.00 Intake, IV 1078.00 1696.00 Intake, Oral 400 1320 Intake, Oral 480 Supplement Number 3 Incontinent Voids Output, Chest 110 Tube Drainage Output, Urine 900 860 Patient 86.5 kg 83.461 kg Weight Weight Standing scale Measurement Method PATIENT WEIGHT: Weight (lb): 190 Weight (oz): 11.2 Weight (kg): 86.500 Medications: Active Meds + DC'd Last 24 Hrs Ipratropium Pacolet (ATROVENT) 500 MCG RTQ2H PRN PRN INH Cyanocobalamin (Vitamin B-12 500 mcg tab) 500 MCG DAILY PO Ferrous Sulfate (FERROUS SULFATE) 325 MG DAILY PO Bisacodyl (DULCOLAX) 10 MG ONCE PRN RECTAL Magnesium Hydroxide (MILK OF MAGNESIA) 30 ML ONCE PRN PO Budesonide (PULMICORT RESPULES) 0.5 MG RTONCE ONE INH (DC) Potassium Chloride (POTASSIUM CHLORIDE 20MEQ TAB.ER) 20 MEQ ONCE ONE PO (DC) Hydrocortisone Sodium Succinate (Solu-CORTEF) 100 MG ONCE ONE IV (DC) Hydrocortisone (CORTEF) 100 MG ONCE ONE PO (CAN) Atorvastatin Calcium (LIPITOR) 40 MG 2100 PO Albumin Human (ALBUMINAR 5% 12.5GM/250ML) 250 ML STAT STA IV (DC) Escitalopram Oxalate (LEXAPRO) 10 MG DAILY PO Polyethylene Glycol (MIRALAX) 17 GM DAILY PO Ropinirole HCl (REQUIP) 2 MG TID PO Verapamil HCl (ISOPTIN) 16.6 MG .Q24H ONE IV (DC) Heparin Sodium (Porcine) (HEPARIN SODIUM) 1,660 UNIT Sodium Bicarbonate (SODIUM BICARBONATE) 0.7 ML Nitroglycerin/Dextrose (NITROGLYCERIN 50MG/D5W 250ML) 8.3 MG Lactated Ringer's (LACTATED RINGERS) 949.5 ML Amiodarone HCl (CORDARONE) 200 MG TID PO Docusate Sodium (COLACE) 100 MG BID PO Metoprolol Tartrate (LOPRESSOR) 12.5 MG Q12HR PO Sennosides (Senna Lax 8.6 MG TABLET) 17.2 MG BEDTIME PO Aspirin (ASPIRIN) 81 MG DAILY PO Ipratropium Pacolet (ATROVENT) 500 MCG RTQ4H INH Mupirocin (BACTROBAN 2% 22 GM OINTMENT) 1 APPLIC BID NASAL Acetaminophen (TYLENOL) 650 MG Q4H PRN PRN PO Acetaminophen (TYLENOL) 650 MG Q4H PRN PRN RECTAL Albumin Human (ALBUMINAR 25%) 25 GM ASDIR PRN IV (DC) Calcium Chloride (CALCIUM CHLORIDE) 1 GM ASDIR PRN IV Dextrose/Water (DEXTROSE 10% IN WATER) 125 ML ASDIR PRN IV (CKD) Dextrose/Water (DEXTROSE 10% IN WATER) 250 ML ASDIR PRN IV (CKD) Epinephrine (ADRENALIN CHLORIDE) 4 MG ASDIR IV Dextrose/Water (DEXTROSE 5% WATER) 246 ML Glucagon (GLUCAGON) 1 MG ASDIR PRN IM Insulin Human Regular (HumuLIN R) 100 UNIT ASDIR IV (CKD) Sodium Chloride (SODIUM CHLORIDE 0.9%) 99 ML Magnesium Sulfate (MAGNESIUM SULFATE 4GM/SWFI 100ML) 100 ML ASDIR PRN IV Magnesium Sulfate (MAGNESIUM SULFATE 2GM/SWFI 50ML) 50 ML ASDIR PRN IV Magnesium Sulfate/Dextrose (MAGNESIUM SULFATE 1GM/D5W 100ML) 100 ML ASDIR PRN IV Nitroglycerin/Dextrose (NITROGLYCERIN 50,000MCG/D5W 250ML) 250 ML ASDIR IV Norepinephrine Bitartrate (NOREPINEPHRINE 8 MG/NS 250 ML) 250 ML TITRATE IV Ondansetron HCl (ZOFRAN) 4 MG Q6H PRN PRN IV Oxycodone HCl (ROXICODONE) 5 MG Q4H PRN PRN PO Oxycodone HCl (ROXICODONE) 10 MG Q4H PRN PRN PO Potassium Chloride (KCL 20MEQ/SWFI 100ML) 100 ML ASDIR PRN IV Sodium Bicarbonate (SODIUM BICARBONATE) 50 MEQ ASDIR PRN IV Sodium Chloride (SODIUM CHLORIDE 0.9%) 1,000 ML .Q20H IV Sodium Chloride (SODIUM CHLORIDE 0.9%) 250 ML Q24H IV Sodium Chloride (SODIUM CHLORIDE) 20 ML ASDIR IV Results Findings/data: Laboratory Tests 03/10 0320 Chemistry Sodium (134 - 147 mEq/L) 137 Potassium (3.4 - 5.0 mEq/L) 3.9 Chloride (100 - 108 mEq/L) 104 Carbon Dioxide (21 - 33 mEq/l) 29 Anion Gap (0 - 20) 8 BUN (7 - 25 mg/dL) 13 Creatinine (0.6 - 1.3 mg/dL) 0.6 Glomerular Filtr Rate (80 - 90) 97.7 H Glucose (77 - 141 mg/dL) 126 Calcium (8.0 - 10.5 mg/dL) 8.9 Magnesium (1.6 - 2.6 mg/dL) 1.70 Total Bilirubin (0.0 - 1.0 mg/dL) 0.50 Direct Bilirubin (0.1 - 0.3 MG/DL) 0.30 Indirect Bilirubin (MG/DL) 0.20 AST (8 - 34 IUnit/L) 29 ALT (10 - 49 IUnit/L) 8 L Total Alk Phosphatase (20 - 125 IUnit/L) 44 Total Protein (6.4 - 8.2 g/dL) 5.5 L Albumin (3.4 - 5.0 g/dL) 3.40 Laboratory Tests 03/10 0320 Hematology WBC (4.5 - 11.0 x10 3/uL) 9.7 RBC (3.54 - 5.02 x10 6/uL) 2.66 L Hgb (11.0 - 15.0 g/dL) 8.4 L Hct (33.0 - 45.0 %) 26.2 L MCV (81.0 - 99.0 fL) 98.5 MCH (27.0 - 33.0 pg) 31.6 MCHC (33.0 - 37.0 g/dL) 32.1 L RDW (11.5 - 14.5 %) 14.4 Plt Count (150 - 400 x10 3/uL) 119 L MPV (7.0 - 9.0 fL) 9.2 H Neut % (Auto) (56.0 - 77.0 %) 71.3 Lymph % (Auto) (14.0 - 32.0 %) 19.9 Riley % (Auto) (4.8 - 9.0 %) 7.8 Eos % (Auto) (0.3 - 3.7 %) 0.2 L Baso % (Auto) (0.0 - 2.0 %) 0.2 Neut # (Auto) (2.0 - 7.6 x10 3/uL) 6.90 Lymph # (Auto) (1.0 - 3.8 x10 3/uL) 1.92 Riley # (Auto) (0.1 - 0.8 x10 3/uL) 0.75 Eos # (Auto) (0.0 - 0.2 x10 3/uL) 0.02 Baso # (Auto) (0.0 - 0.2 x10 3/uL) 0.02 Abs Immat Gran (auto) (0.00 - 0.03 x10 3/uL) 0.06 H Immature Gran % (0.0 - 2.0 %) 0.6 Nucleated RBC % (0 - 0 %) 0.0 Nucleated RBCs # (Man) (0.0 - 0.1 x10 3/uL) 0.00 Laboratory Tests 03/10/23 0320: [Embedded Image Not Available] Microbiology: 03/08 115 TISSUE: Acid Fast Bacilli Smear - RECD 03/08 115 TISSUE: Acid Fast Bacilli Culture - RECD 03/08 115 TISSUE: Fungal Smear - RES 03/08 115 TISSUE: Fungal Culture - RES 03/08 115 OTHER TISS: Tissue Culture - RES 03/08 115 OTHER TISS: Anaerobic Culture - RES 03/08 115 OTHER TISS: Gram Stain - RES Radiology data Recent Impressions: RADIOLOGY - XR CHEST 1 V 03/10 0520 Report Impression - Status: SIGNED Entered: 03/10/2023 0657 IMPRESSION: There is mild pulmonary vascular prominence. There are minimal patchy opacities in the lung bases bilaterally. This could be due to atelectasis or pneumonia. Compared to the prior exam, there has been little change. Impression By: Adela.LUCAS Rodriguez M.D. Free Text Obj Notes Free Text Obj Notes: Elderly lady not in respiratory distress Pupil equal reactive to light Neck supple Chest with sternotomy dressing, minimal basilar crackles Heart S1-S2 Abdomen soft, bowel sound present Extremities no edema TICK SEWER intact Diagnosis, Assessment Plan Free text A P: Severe s/p AVR Postoperative respiratory insufficiency after cardiac surgery Hypotension Leukocytosis COPD Postoperative pain Patient underwent AVR today, her mitral valve appeared okay. EF was normal. On arrival to ICU patient was on a low-dose of epinephrine and Levophed, we will wean off to keep MAP at 65. Patient was still under sedation, she was on assist control ventilation, will wean to extubate. Will monitor chest tube output. Monitor urine output. Monitor kidney function, replace electrolyte as needed. Pain management. Bronchodilator as needed. Aspiration precaution. Monitor H H , transfuse as needed. GI and DVT prophylaxis. Patient will need incentive spirometry after extubation. 03/09 Patient was extubated successfully yesterday, she is on nasal cannula this morning. Will wean down oxygen to keep saturation of 92%. Incentive spirometry. Bronchodilator as needed. Pulmonary toileting. Blood pressure in the lower side, she is on 2 of epinephrine and 2 of Levophed this morning, we did stop her epinephrine initially. Will wean off Levophed to keep MAP at 65. Continue to monitor urine output. Monitor kidney function. Replace electrolyte as needed. Out of bed to chair. PT and OT. Monitor chest tube output. GI and DVT prophylaxis. Continue engine monitor. Follow-up with thoracic surgery recommendation 03/10 Patient on room air, keep sats of 92%. Incentive spirometry. Bronchodilator. Patient came off pressors this morning, she is on inhaled steroid at home, received a dose of steroid overnight which improved her blood pressure. Will continue inhaled steroid now. Monitor kidney function, urine output, replace electrolyte as needed. DC central line. Out of bed to chair. PT and OT. GI and DVT prophylaxis. teletypesetter monitor. Case was discussed at bedside with the nursing staff, respiratory therapist, pharmacist, social problems specialist and cardiothoracic surgery team. at 1610 RPT #:[id number] END OF REPORT [facility] 2023-03-10 10:59:00 [id number] [address] PATIENT NAME: SALINA LAFLEUR ADMIT DATE: 03/08/23 ACCOUNT NO: [id number] ROOM NO: .2204 AGE: 67 REPORT TYPE: eELECTROCARDIOGRAM REPORT SEX: F ADMITTING PHYSICIAN:Svitlana uLi MD ATTENDING PHYSICIAN:Svitlana Lui MD Order: [id number] Test Reason : , Test Date/Time Stamp: WedMar 10 2023 10:59:36 Blood Pressure : / mmHG Vent. Rate : 074 BPM Atrial Rate : 000 BPM P-R Int : 000 ms QRS Dur : 100 ms QT Int : 370 ms P-R-T Axes : 000 034 004 degrees QTc Int : 410 ms Atrial fibrillation Abnormal ECG When compared with ECG of 10-MAR-2023 04:51, Significant changes have occurred Confirmed by CAROLINA GIRON MD ([id number]) on 03/16/2023 1:10:52 PM Referred By: Svitlana Lui Confirmed by:CAROLINA GIRON MD at 1310 PATIENT NAME: SALINA LAFLEUR [facility] 2023-03-10 05:41:00 [facility] ([facility]) Cardiothoracic Surgery Prog REPORT#:[id number] REPORT STATUS: Signed REPORT INITIALIZATION DATE:03/10/23 TIME: 540 PATIENT: SALINA LAFLEUR UNIT #: [id number] ROOM/BED: [place] [address] : 53 AGE: 67 SEX: F ATTEND: Svitlana Lui MD ADM AUTHOR: Tamara Benavides Physic REPT SERVICE DT/TIME: 03/10/23 0541 * ALL edits or amendments must be made on the electronic/computer document * General Post-op: day 2 Status post: AVR (25 Inspiris) ALAA Subjective Chief complaint: Postop AVR Patient resting comfortable Complains of fatigue Review of Systems Constitutional: Reports: fatigue. Denies: fever. Skin: Denies: rash, swelling. Respiratory: Denies: HILL (dyspnea on exertion), SOB. Cardiovascular: Denies: chest pain, HILL (dyspnea on exertion). GI: Denies: abdominal pain. : Denies: hematuria. All systems rev neg: except as marked Objective General VS/I O Last Documented: Result Date Time Temp 98.9 03/09 2000 Pulse Ox 92 03/09 193 FiO2 21 03/09 1939 O2 Delivery Room air 03/09 193 B/P 92/53 03/09 1745 B/P Mean 67 03/09 174 Pulse 70 03/09 1745 Resp 18 03/09 174 O2 Flow Rate 1 03/09 0357 24 hour I O ending at 0700: 03/10 0700 03/09 1900 Intake Total 400 3496.00 Output Total 900 970 Balance -500 2526.00 Intake, IV 1696.00 Intake, Oral 400 1320 Intake, Oral 480 Supplement Number 3 Incontinent Voids Output, Chest 110 Tube Drainage Output, Urine 900 860 Patient 83.461 kg Weight PATIENT WEIGHT: Weight (lb): 184 Weight (oz): 15.49 Weight (kg): 83.461 Physical Exam General appearance: alert, awake, oriented HEENT: mucosal membranes moist Neck: full range of motion, non-tender Cardiovascular: normal heart sounds, regular rate rhythm Respiratory: aerating well, no distress Abdomen: soft, non-tender Extremities: dry, moves all Musculoskeletal: full range of motion Neuro/TICK SEWER: alert, oriented X 3 Skin: dry, intact Diagnosis, Assessment Plan Hospital course to date: This Is a 67-year-old female with a past medical history of hypertension, hyperlipidemia, aortic valve stenosis, mitral regurgitation who presents today for evaluation for aortic valve replacement and mitral valve replacement.She reports she has increased shortness of breath for the past several months. She underwent full work[facility]up [facility] with echocardiogram showing severe aortic valve stenosis with an HAILE 0.9 cm, peak gradient 37 mmHg, mean 60 mmHg. She underwent JAMES showing severe mitral regurgitation with systolic reversal pulmonary vein, with thickening of the aortic valve with masslike appearance. She underwent left heart catheterization at [facility] showing no significant coronary artery disease.The patient was seen several months ago initially and was found to have a large ovarian cyst which was removed via hysterectomy. She is now admitted for Aortic valve and mitral valve replacement. Assessment/plan 1. Hypertension 2. Hyperlipidemia 3. Aortic valve stenosis Patient is admitted for aortic valve replacement and mitral valve replacement. This procedure was discussed with the patient by Dr. Lui. The risk of the operation including , bleeding, infection, heart attack, stroke, prolonged ICU stay, renal failure, dialysis, need for long-term rehabilitation, need for permanent pacemaker etc. was discussed with the patient and patient's family. Their questions were answered and the patient agreed to proceed with surgery 03/08/23 AVR (25 Inspiris) ALAA 03/09/23 POD 1 AAOx3 Patient reports pain controlled. Respiratory: On room air, Encourage IS, Deep Breathing, CXR reviewed chest tube outputs to 70, continue to monitor Cardiac: Remains sinus rhythm, pacing wires on standby, levo and epi weaned. GI: Tolerating diet continue Bowel regimen : DC Garcia today UO: 810 Continue PT/OT out of bed DVT prophylaxis, SCDs in place Labs reveiwed- replace electrolytes as needed Patient seen and examined by Dr. Lui. Plan of care discussed with multidisciplinary team Continue supportive care 03/10/23 POD 2 AAOx3 Patient reports pain controlled. Respiratory: On room air, Encourage IS, Deep Breathing, Chest x-ray reviewed. Cardiac: Remains sinus rhythm, pacing wires on standby, GI: Tolerating diet continue Bowel regimen Continue PT/OT out of bed DVT prophylaxis, SCDs in place Labs reveiwed- replace electrolytes as needed Patient seen and examined by Dr. Lui. Plan of care discussed with multidisciplinary team Continue supportive care Patient takes Symbicort at home routinely Will restart this. Given a dose of hydrocortisone by [facility]. Plan to DC . Continue PT OT out of bed. at 1130 at 2306 RPT #:[id number] END OF REPORT [facility] 2023-03-10 04:51:00 [id number] [place] [address] PATIENT NAME: SALINA LAFLEUR ADMIT DATE: 03/08/23 ACCOUNT NO: [id number] ROOM NO: [facility] AGE: 67 REPORT TYPE: eELECTROCARDIOGRAM REPORT SEX: F ADMITTING PHYSICIAN:Svitlana Lui MD ATTENDING PHYSICIAN:Svitlana Lui MD Order: [id number] Test Reason : Cardiac Surgery Post Op Test Date/Time Stamp: WedMar 10 2023 04:51:48 Blood Pressure : / mmHG Vent. Rate : 072 BPM Atrial Rate : 072 BPM P-R Int : 224 ms QRS Dur : 100 ms QT Int : 386 ms P-R-T Axes : 061 029 026 degrees QTc Int : 422 ms Sinus rhythm with 1st degree AV block with premature atrial complexes Otherwise normal ECG When compared with ECG of 09-MAR-2023 05:43, No changes Confirmed by MD FRANCISCO JAVIER, KATLYN ([id number]) on 03/10/2023 7:03:29 AM Referred By: Svitlana Lui Confirmed by:KATLYN MCINTYRE MD at 0703 PATIENT NAME: SALINA LAFLEUR [facility] 2023-03-09 15:17:00 [facility]) Cardiothoracic Surgery Prog REPORT#:[id number] REPORT STATUS: Signed REPORT INITIALIZATION DATE:03/09/23 TIME: 1516 PATIENT: SALINA LAFLEUR UNIT #: [id number] ROOM/BED: [place] [address] : 53 AGE: 67 SEX: F ATTEND: Svitlana Lui MD ADM AUTHOR: Tamara Benavides Physic REPT SERVICE DT/TIME: 03/09/231516 * ALL edits or amendments must be made on the electronic/computer document * General Post-op: day 1 Status post: AVR (25 Inspiris) ALAA Subjective Chief complaint: Postop AVR Patient resting comfortable Complains of fatigue Review of Systems Constitutional: Reports: fatigue. Denies: fever. Skin: Denies: rash, swelling. Respiratory: Denies: HILL (dyspnea on exertion), SOB. Cardiovascular: Denies: chest pain, HILL (dyspnea on exertion). GI: Denies: abdominal pain. : Denies: hematuria. All systems rev neg: except as marked Objective General VS/I O Last Documented: Result Date Time Pulse Ox 95 03/09 1500 B/P 94/53 03/09 1500 B/P Mean 68 03/09 1500 Temp 97.5 03/09 1500 Pulse 65 03/09 1500 Resp 19 03/09 1500 O2 Delivery Room air 03/09 0740 FiO2 24 03/09 0357 O2 Flow Rate 1 03/09 0357 24 hour I O ending at 0700: 03/09 0700 03/08 1900 Intake Total 2618.30 2574.00 Output Total 895 1950 Balance 1723.30 624.00 Intake, IV 2018.30 1074.00 Intake, Oral 600 Intake, Other 1500 Output, Chest 230 150 Tube Drainage Output, 300 Estimated Blood Loss Output, Urine 665 1500 Patient 83.9 kg Weight Weight Bed scale Measurement Method PATIENT WEIGHT: Weight (lb): 184 Weight (oz): 15.49 Weight (kg): 83.900 Physical Exam General appearance: alert, awake, oriented HEENT: mucosal membranes moist Neck: full range of motion, non-tender Cardiovascular: normal heart sounds, regular rate rhythm Respiratory: aerating well, no distress Abdomen: soft, non-tender Extremities: dry, moves all Musculoskeletal: full range of motion Neuro/TICK SEWER: alert, oriented X 3 Skin: dry, intact Diagnosis, Assessment Plan Hospital course to date: This Is a 67-year-old female with a past medical history of hypertension, hyperlipidemia, aortic valve stenosis, mitral regurgitation who presents today for evaluation for aortic valve replacement and mitral valve replacement.She reports she has increased shortness of breath for the past several months. She underwent full work-up at [facility] with echocardiogram showing severe aortic valve stenosis with an HAILE 0.9 cm, peak gradient 37 mmHg, mean 60 mmHg. She underwent JAMES showing severe mitral regurgitation with systolic reversal pulmonary vein, with thickening of the aortic valve with masslike appearance. She underwent left heart catheterization at [facility] showing no significant coronary artery disease.The patient was seen several months ago initially and was found to have a large ovarian cyst which was removed via hysterectomy. She is now admitted for Aortic valve and mitral valve replacement. Assessment/plan 1. Hypertension 2. Hyperlipidemia 3. Aortic valve stenosis Patient is admitted for aortic valve replacement and mitral valve replacement. This procedure was discussed with the patient by Dr. Lui. The risk of the operation including , bleeding, infection, heart attack, stroke, prolonged ICU stay, renal failure, dialysis, need for long-term rehabilitation, need for permanent pacemaker etc. was discussed with the patient and patient's family. Their questions were answered and the patient agreed to proceed with surgery 03/08/23 AVR (25 Inspiris) ALAA 03/09/23 POD 1 AAOx3 Patient reports pain controlled. Respiratory: On room air, Encourage IS, Deep Breathing, CXR reviewed chest tube outputs to 70, continue to monitor Cardiac: Remains sinus rhythm, pacing wires on standby, levo and epi weaned. GI: Tolerating diet continue Bowel regimen : DC Garcia today UO: 810 Continue PT/OT out of bed DVT prophylaxis, SCDs in place Labs reveiwed- replace electrolytes as needed Patient seen and examined by Dr. Lui. Plan of care discussed with multidisciplinary team Continue supportive care at 1521 at 2312 RPT #:[id number] END OF REPORT [facility] 2023-03-09 15:16:00 [facility] ([facility]) Heart Failure Consultation REPORT#:[id number] REPORT STATUS: Signed REPORT INITIALIZATION DATE:03/09/23 TIME: 1515 PATIENT: SALINA LAFLEUR UNIT #: [id number] ROOM/BED: [place] [address] : 53 AGE: 67 SEX: F ATTEND: Svitlana Lui MD ADM AUTHOR: Jared Zarate SAUSAGE MACHINE OPERATOR REPT SERVICE DT/TIME: 03/09/23 1200 * ALL edits or amendments must be made on the electronic/computer document * Jared Zarate 03/09/23 1516: History of Present Illness HPI Requesting Clinician: Dr Lui/Dr Pham Reason for consult: post op fluid overload management HPI: This Is a 67-year-old female with a past medical history of hypertension, hyperlipidemia, aortic valve stenosis, mitral regurgitation. The patient was admitted for evaluation of severe aortic valve stenosis (HAILE 0.9 cm, peak gradient 37 mmHg, mean 60 mmHg) and severe mitral regurgitation. ECHO on 03/09/23 shows LVEF of 55-60%. 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 Per CT, she underwent left heart catheterization at [facility] showing no significant coronary artery disease. Currently, the patient is sistting in the recliner, no complaints, family is here. Dr Perez informed pt and family of stable cardiac condition post op and fluid overload monitoring History - Adult longitudinal Past medical history: Reports: Hypertension. Denies: Congestive heart failure, Coronary artery disease. Additional medical history: 1. HTN 2. COPD 3. Severe 4. Severe MR Additional surgical history: 1. LHC - no CAD 2. JAMES - severe MR, Severe 3. Hip surgery Alcohol use: Denies EtOH use Drug use: Denies recreational drugs Smoking status for patients 13 years old or older: Former Smoker Medications: Home Medications: Medication Dose/Rte/Freq Days Qty Entered Last Max Daily Dose Reviewed BUDESONIDE/FORMOTEROL 2 PUFF INH BID 01/19/23 03/08/23 FUMARATE 1823 0633 (SYMBICORT 80/4.5 MCG/ACT) Strength: 80 MCG-4.5 MCG/ACTUATION INHALER IRBESARTAN/HCTZ 1 TAB PO DAILY 01/27/23 03/08/23 (AVALIDE 150/12.5 MG) 1615 0633 Strength: 150 MG-12.5 MG TAB ROSUVASTATIN (CRESTOR) 5 MG PO BEDTIME 01/27/23 03/08/23 Strength: 5 MG TAB 1617 0633 MULTIVITAMIN 1 TAB PO DAILY 01/27/23 03/08/23 (MULTIPLE VITAMIN) 1618 0633 Strength: 1 TAB TAB rOPINIRole (REQUIP) 2 MG PO TID 10/16/13 03/08/23 Strength: 0.25 MG TAB 1821 0633 ESCITALOPRAM (LEXAPRO) 10 MG PO DAILY 10/16/13 03/08/23 Strength: 10 MG TAB 1821 0633 Current Hospital Medications: Anti-Infective Agents Sig/Abdias Start time Last Medication Dose Route Stop Time Status Admin Vancomycin HCl 1,000 MG Q12H 03/08 2230 DC 03/09 (VANCOMYCIN HCL) IV 03/09 1129 0923 Sodium Chloride 250 ML (SODIUM CHLORIDE 0.9%) Cefazolin Sodium 6 GM ONCE ONE 03/08 1330 DC 03/08 (KEFZOL OR ANCEF) IV 03/09 0929 1526 Sodium Chloride 500 ML (SODIUM CHLORIDE 0.9%) Autonomic Drugs Sig/Abdias Start time Last Medication Dose Route Stop Time Status Admin Ipratropium Pacolet 500 MCG RTQ2H PRN PRN 03/11 1316 AC (ATROVENT) INH 06/08 1315 Ipratropium Pacolet 500 MCG RTQ4H 03/08 1600 AC 03/09 (ATROVENT) INH 03/11 1316 1555 Epinephrine 4 MG ASDIR 03/08 1330 AC (ADRENALIN CHLORIDE) IV 06/05 1329 Dextrose/Water 246 ML (DEXTROSE 5% WATER) Norepinephrine 250 ML TITRATE 03/08 133 AC Bitartrate IV 06/05 1329 (NOREPINEPHRINE 8 MG/ NS 250 ML) Blood Derivatives Sig/Abdias Start time Last Medication Dose Route Stop Time Status Admin Albumin Human 250 ML ONCE ONE 03/09 0630 DC 03/09 (ALBUMINAR 5% 12.5GM/ IV 03/09 0659 0635 250ML) Albumin Human 250 ML ONCE ONE 03/08 2245 DC 03/08 (ALBUMINAR 5% 12.5GM/ IV 03/08 2314 2341 250ML) Albumin Human 250 ML ONCE ONE 03/08 2200 DC 03/08 (ALBUMINAR 5% 12.5GM/ IV 03/08 2229 2204 250ML) Albumin Human 25 GM ASDIR PRN 03/08 1330 DC 03/09 (ALBUMINAR 25%) IV 03/09 1316 0928 Blood Formation,Coagulation Sig/Abdias Start time Last Medication Dose Route Stop Time Status Admin Ferrous Sulfate 325 MG DAILY 03/11 0900 AC (FERROUS SULFATE) PO 06/08 0859 Cardiovascular Drugs Sig/Abdias Start time Last Medication Dose Route Stop Time Status Admin Atorvastatin Calcium 40 MG 2100 03/09 2100 AC (LIPITOR) PO 04/08 2058 Verapamil HCl 16.6 MG .Q24H ONE 03/09 0500 CKD (ISOPTIN) IV 03/10 0459 Heparin Sodium 1,660 UNIT (Porcine) (HEPARIN SODIUM) Sodium Bicarbonate 0.7 ML (SODIUM BICARBONATE) Nitroglycerin/ 8.3 MG Dextrose (NITROGLYCERIN 50MG/ D5W 250ML) Lactated Ringer's 949.5 ML (LACTATED RINGERS) Amiodarone HCl 200 MG TID 03/08 2100 AC 03/09 (CORDARONE) PO 06/05 2058 1426 Metoprolol Tartrate 12.5 MG Q12HR 03/08 2100 AC (LOPRESSOR) PO 06/05 2058 Nitroglycerin/ 250 ML ASDIR 03/08 1330 AC Dextrose IV 06/05 1329 (NITROGLYCERIN 50,000MCG/D5W 250ML) Central Nervous System Agents Sig/Abdias Start time Last Medication Dose Route Stop Time Status Admin Escitalopram Oxalate 10 MG DAILY 03/09 0900 AC 03/09 (LEXAPRO) PO 06/06 0859 0923 Ropinirole HCl 2 MG TID 03/09 0900 AC 03/09 (REQUIP) PO 06/06 0859 1426 Aspirin 81 MG DAILY 03/08 1916 AC 03/09 (ASPIRIN) PO 06/05 1915 0750 Acetaminophen 650 MG Q4H PRN PRN 03/08 1330 AC 03/09 (TYLENOL) PO 06/05 1329 1259 Acetaminophen 650 MG Q4H PRN PRN 03/08 1330 AC (TYLENOL) RECTAL 06/05 1329 Magnesium Sulfate 100 ML ASDIR PRN 03/08 1330 AC (MAGNESIUM SULFATE IV 06/05 1329 4GM/SWFI 100ML) Magnesium Sulfate 50 ML ASDIR PRN 03/08 1330 AC (MAGNESIUM SULFATE IV 06/05 1329 2GM/SWFI 50ML) Magnesium Sulfate/ 100 ML ASDIR PRN 03/08 1330 AC Dextrose IV 06/05 1329 (MAGNESIUM SULFATE 1GM/D5W 100ML) Oxycodone HCl 5 MG Q4H PRN PRN 03/08 1330 AC 03/09 (ROXICODONE) PO 03/13 1329 0750 Oxycodone HCl 10 MG Q4H PRN PRN 03/08 1330 AC 03/09 (ROXICODONE) PO 03/13 1329 1259 Electrolytic, Caloric, And Holly Sig/Abdias Start time Last Medication Dose Route Stop Time Status Admin Calcium Chloride 1 GM ASDIR PRN 03/08 1330 AC (CALCIUM CHLORIDE) IV 06/05 1329 Dextrose/Water 125 ML ASDIR PRN 03/08 1330 CKD (DEXTROSE 10% IN IV 06/05 1329 WATER) Dextrose/Water 250 ML ASDIR PRN 03/08 1330 CKD (DEXTROSE 10% IN IV 06/05 1329 WATER) Potassium Chloride 100 ML ASDIR PRN 03/08 1330 AC (KCL 20MEQ/SWFI IV 06/05 1329 100ML) Sodium Bicarbonate 50 MEQ ASDIR PRN 03/08 1330 AC (SODIUM BICARBONATE) IV 06/05 1329 Sodium Chloride 1,000 ML .Q20H 03/08 1330 AC (SODIUM CHLORIDE IV 06/05 1329 0.9%) Sodium Chloride 250 ML Q24H 12/11 1330 AC (SODIUM CHLORIDE IV 06/05 1329 0.9%) Sodium Chloride 20 ML ASDIR 03/04 1600 AC (SODIUM CHLORIDE) IV 06/01 1559 Gastrointestinal Drugs Sig/Abdias Start time Last Medication Dose Route Stop Time Status Admin Bisacodyl 10 MG ONCE PRN 03/10 1200 AC (DULCOLAX) RECTAL 06/07 1159 Magnesium Hydroxide 30 ML ONCE PRN 03/10 1200 AC (MILK OF MAGNESIA) PO Polyethylene Glycol 17 GM DAILY 03/09 0900 AC 03/09 (MIRALAX) PO 06/06 0859 0751 Docusate Sodium 100 MG BID 03/08 2100 AC 03/09 (COLACE) PO 06/05 2058 075 Sennosides 17.2 MG BEDTIME 03/08 2100 AC 03/08 (Senna Lax 8.6 MG PO 06/05 TABLET) Ondansetron HCl 4 MG Q6H PRN PRN 03/08 1330 AC (ZOFRAN) IV 06/05 1329 Hormones And Synthetic Substit Sig/Abdias Start time Last Medication Dose Route Stop Time Status Admin Glucagon 1 MG ASDIR PRN 03/08 1330 AC (GLUCAGON) IM 06/05 1329 Insulin Human Regular 100 UNIT ASDIR 03/08 1330 CKD (HumuLIN R) IV 06/05 1329 Sodium Chloride 99 ML (SODIUM CHLORIDE 0.9%) Skin And Mucous Membrane Agent Sig/Abdias Start time Last Medication Dose Route Stop Time Status Admin Mupirocin 1 APPLIC BID 03/08 1400 AC 03/09 (BACTROBAN 2% 22 GM NASAL 03/12 2101 0752 OINTMENT) Vitamins Sig/Abdias Start time Last Medication Dose Route Stop Time Status Admin Cyanocobalamin 500 MCG DAILY 03/11 0900 AC (Vitamin B-12 500 PO 06/08 0859 mcg tab) Allergies: Coded Allergies: sulfamethoxazole (From BACTRIM) (Mild, HIVES 01/20/23) trimethoprim (From BACTRIM) (Mild, HIVES 01/20/23) Review of Systems Constitutional: Denies: fatigue, generalized weakness. Respiratory: Denies: SOB (at rest). Cardiovascular: Reports: chest pain (post op pain). Neuro: Denies: dizziness, syncope. Psych: Denies: anxiety, stress. Objective Physical Exam VS/I O: Vital Signs: Date Time Temp Pulse Resp B/P B/P Pulse O2 O2 Flow FiO2 Mean Ox Delivery Rate 03/09 1500 97.5 65 19 94/53 68 95 12/12 1445 65 21 93/55 68 94 12/12 1430 65 20 96/53 71 94 12/12 1415 71 27 89/53 66 98 12/12 1400 67 19 88/54 66 94 12/12 1345 65 21 99/57 76 94 12/12 1330 67 19 104/51 73 94 12/12 1315 70 18 110/50 72 94 12/12 1300 68 22 92/51 68 94 12/12 1245 71 21 94/52 69 95 12/12 1230 70 23 89/54 67 97 12/12 1215 68 21 90/49 66 97 12/12 1200 62 21 103/51 71 100 12/12 1145 67 30 93/51 68 98 12/12 1139 65 23 91/53 65 99 12/12 1115 63 18 91/54 71 99 12/12 1100 97.7 62 17 92/56 68 98 12/12 1045 66 20 100/59 76 100 12/12 1030 65 22 108/60 79 100 12/12 1018 68 25 109/55 76 100 12/12 1000 70 21 97/53 69 100 12/12 0945 73 20 101/52 75 96 12/12 0930 69 22 104/51 73 97 12/12 0915 70 19 107/54 75 97 12/12 0900 75 20 111/57 80 97 12/12 0845 70 16 116/57 82 98 12/12 0830 65 16 114/56 81 98 12/12 0816 69 17 114/57 82 99 12/12 0800 68 21 107/53 77 99 12/12 0745 66 18 95/50 66 100 12/12 0740 98 Room air 12/12 0730 63 21 95/50 67 95 12/12 0715 66 25 95/50 70 74 12/12 0700 97.8 69 26 91/46 66 94 12/12 0646 65 21 59/43 50 95 12/12 0645 95/50 69 12/12 0645 65 21 58/42 49 95 12/12 0642 92/45 65 12/12 0642 65 23 63/42 51 97 12/12 0630 105/53 76 12/12 0630 68 24 117/57 63 98 12/12 0615 66 27 346/332 344 97 12/12 0610 115/53 77 12/12 0610 70 26 345/344 345 12/12 0606 112/92 99 12/12 0606 80 33 345/345 345 12/12 0600 99.5 71 28 76/47 57 12/12 0545 93/52 68 12/12 0545 99.5 69 24 80/58 66 97 12/12 0530 95/54 71 12/12 0530 99.7 69 18 92/63 73 97 12/12 0515 93/50 68 12/12 0515 99.7 73 27 72/59 65 96 12/12 0500 86/51 66 12/12 0500 99.7 74 21 79/54 63 96 12/12 0451 84/48 63 12/12 0451 99.7 76 23 78/54 63 96 12/12 0445 84/48 64 12/12 0445 99.9 74 19 75/53 62 95 12/12 0434 88/49 63 12/12 0434 99.9 79 32 75/56 63 97 12/12 0430 89/52 68 12/12 0430 99.9 80 27 69/53 60 96 12/12 0415 99.7 83 34 81/56 65 95 12/12 0400 100/52 72 12/12 0400 99.7 77 22 74/59 65 100 12/12 0357 95 Nasal 1 24 cannula 12/12 0300 99.5 75 34 98/93 95 93 12/12 0255 99/55 73 12/12 0255 99.5 75 21 74/49 59 97 12/12 0245 96/51 70 12/12 0245 94.3 63 15 98/46 66 98 12/12 0230 101/54 73 12/12 0230 96.6 66 15 89/57 69 98 12/12 0215 94/51 67 12/12 0215 95.2 62 17 86/60 71 99 12/12 0214 95/50 67 12/12 0214 95.2 62 16 87/61 72 99 12/12 0205 94/55 69 12/12 0205 97.9 60 16 92/60 71 99 12/12 0200 93/52 69 12/12 0200 99.9 63 17 100/45 65 100 12/12 0154 94/51 68 12/12 0154 100.0 62 16 98/44 63 99 12/12 0145 88/51 67 12/12 0145 100.0 66 21 92/42 58 97 12/12 0137 85/53 65 12/12 0137 100.0 67 22 91/84 84 93 12/12 0136 100.2 65 24 84/51 62 94 12/12 0134 87/51 64 12/12 0134 100.2 68 24 86/40 58 98 12/12 0130 86/49 65 12/12 0130 100.2 67 20 28/24 22 98 12/12 0124 94/51 71 12/12 0124 100.2 71 21 93/42 61 99 12/12 0116 89/54 69 12/12 0116 100.2 65 20 90/40 57 97 12/12 0115 87/52 67 12/12 0115 100.2 65 18 92/40 58 97 12/12 0110 97/55 73 12/12 0110 100.4 81 23 99/40 61 97 12/12 0108 100.4 72 22 90/37 55 97 12/12 0106 86/42 61 12/12 0106 100.4 72 24 89/36 53 96 12/12 0100 104/53 75 12/12 0100 100.2 76 26 109/43 65 98 12/12 0045 121/56 80 12/12 0045 100.4 82 25 107/71 84 95 12/12 0030 104/53 77 12/12 0030 100.4 79 26 86/48 62 93 12/12 0016 112/54 78 12/12 0016 100.2 81 38 128/82 97 96 12/12 0015 100.2 80 30 120/75 91 96 12/12 0001 119/59 80 12/12 0001 100.2 79 27 104/59 73 95 12/12 0000 100.2 80 24 92/49 65 90 12/11 2345 103/51 72 12/11 2345 100.2 73 26 107/51 69 98 12/11 2330 118/54 78 12/11 2330 100.0 76 15 114/50 74 100 12/11 2326 110/55 79 12/11 2326 100.0 75 34 85/63 71 97 12/11 2315 112/55 79 12/11 2315 99.5 77 34 88/54 67 96 12/11 2300 111/54 78 / 2300 95.4 76 33 97/64 76 97 / 2245 112/58 73 / 2245 99.7 68 23 105/73 86 92 03/08 2231 120/55 79 / 2231 99.7 70 24 109/70 86 98 / 2230 99.7 69 23 108/70 86 100 / 2215 106/58 77 03/08 2215 99.5 67 25 117/56 79 98 03/08 2210 99.5 63 19 110/50 71 99 03/08 2208 99.5 63 23 114/49 74 100 03/08 2200 107/59 79 03/08 2200 99.5 63 18 122/48 74 98 03/08 2153 99.5 66 24 114/44 70 100 03/08 2145 107/55 78 03/08 2145 99.5 66 26 115/44 68 99 03/088 99.5 69 32 119/45 71 100 03/08 2130 114/59 83 03/08 2130 99.5 66 27 114/44 70 99 03/083 99.5 69 30 118/46 71 100 03/08 211 113/59 83 03/08 2115 99.7 65 17 120/48 74 100 03/08 2108 99.7 64 18 117/46 70 100 / 2100 107/56 78 03/08 2100 99.7 63 18 120/48 73 100 03/08 2053 99.5 62 20 113/45 68 100 03/08 2045 105/59 79 03/08 2045 99.5 62 15 120/47 73 100 03/08 2038 99.5 63 16 120/48 73 100 / 2030 107/57 77 03/08 2030 99.5 61 16 119/48 73 100 03/08 2015 97/56 74 03/08 2015 99.5 63 19 103/41 64 98 03/08 2000 99.3 12/1999 101/56 75 03/08 2000 99.3 60 16 113/44 69 100 03/085 108/55 75 03/08 1945 99.3 60 17 117/47 72 100 03/083 100 Nasal 2 28 cannula 03/08 1930 113/55 77 03/08 1930 99.1 61 15 122/49 76 100 12/11 1915 109/59 81 03/08 1915 99.1 58 19 115/47 71 100 03/08 1900 115/58 81 / 1900 99.1 63 16 126/52 79 100 03/08 1830 116/58 80 / 1830 99.0 61 15 122/51 77 100 / 1815 119/59 83 03/08 1815 98.8 60 14 122/52 78 100 / 1800 117/61 84 / 1800 98.8 60 17 100/57 77 100 03/08 1745 109/58 80 03/08 1745 98.6 53 16 114/47 72 100 03/08 1730 118/59 83 03/08 1730 98.6 60 16 123/55 81 100 03/08 1715 118/61 84 03/08 1715 98.4 59 25 120/57 81 100 03/08 1700 117/59 85 03/08 1700 98.2 61 23 119/55 79 99 03/08 1645 127/65 88 03/08 1645 98.4 58 20 135/60 88 100 03/08 1630 118/61 83 03/08 1630 98.2 59 15 123/58 83 100 03/08 1615 122/63 86 03/08 1615 98.2 59 14 124/59 84 100 03/08 1600 124/60 85 03/08 1600 98.2 58 19 124/59 84 100 03/08 1600 58 23 100 03/08 1600 58 100 40 24 hour I O ending at 0700: 03/09 0700 03/08 1900 Intake Total 2618.30 2574.00 Output Total 895 1950 Balance 1723.30 624.00 Intake, IV 2018.30 1074.00 Intake, Oral 600 Intake, Other 1500 Output, Chest 230 150 Tube Drainage Output, 300 Estimated Blood Loss Output, Urine 665 1500 Patient 185 lb Weight Weight Bed scale Measurement Method PATIENT WEIGHT: Weight (lb): 184 Weight (oz): 15.49 Weight (kg): 83.461 General appearance: alert, awake, no acute distress, no respiratory distress Cardiovascular: regular rate and rhythm Respiratory: no distress Extremities: no edema Neuro/TICK SEWER: alert, normal speech Skin: dry, normal color Psychiatry: normal mood Results Findings/Data: Laboratory Tests 1203/088 2001 1813 1634 Blood Gas Puncture Site Art Line Art Line Art Line Art Line O2 Saturation (90 - 100 %) 94.7 93.7 97.1 99.4 ABG pH (7.35 - 7.45) 7.394 7.358 7.359 7.357 ABG pCO2 (35.0 - 45 mmHg) 42.2 44.4 43.5 41.4 ABG pO2 (80 - 100.0 mmHg) 78.4 L 74.5 L 95.8 159.8 H ABG PO2/FiO2 Ratio (mm/Hg) 399.50 ABG HCO3 (22.0 - 26.0 MMOL/L) 25.5 24.9 24.5 23.3 ABG Total CO2 26.8 26.2 25.8 24.6 ABG Base Excess (-4.0 - 4.0 MMOL/L) 0.9 -0.5 -1.0 -2.3 ABG Hematocrit (33.0 - 45.0 %) 29 L 32 L 32 L 34 ABG Hemoglobin (11.0 - 15.0 G/DL) 9.9 L 10.9 L 10.8 L 11.5 Benjamin Test N/A N/A Sodium (134 - 147 mmol/L) 140 141 141 141 Potassium (3.4 - 5.0 mmol/L) 4.7 4.5 4.6 4.4 Chloride (100 - 108 mmol/L) 104 108 108 109 H Ionized Calcium (1.12 - 1.32 MMOL/L) 1.27 1.26 1.24 1.23 Lactic Acid (0.9 - 1.7 mmol/l) 1.0 0.7 L 0.9 1.0 Temperature (F) 100.2 99.3 98.8 98.2 O2 Delivery Device Cannula Cannula Cannula Adult Vent Vent Mode CPAP/PS Vent Rate (/MIN) 16 FiO2 (%) 40 PEEP (cmH2O) 5 Pressure Support (cmH2O) 5 Laboratory Tests Laboratory Tests Laboratory Tests 03/09/23 0344: [Embedded Image Not Available] 03/08/23 1347: [Embedded Image Not Available] Laboratory Tests 03/09 344 Chemistry Magnesium (1.6 - 2.6 mg/dL) 2.05 Radiology Data: Recent Impressions: RADIOLOGY - XR CHEST 1 V 03/09 0646 Report Impression - Status: SIGNED Entered: 03/09/2023 1162 IMPRESSION: There is mild pulmonary vascular prominence. There are minimal patchy opacities in the lung bases bilaterally. This could be due to atelectasis or pneumonia. Impression By: Adela.LUCAS - Gregory Rodriguez M.D. Results: labs reviewed, vital signs reviewed, rhythm personally rev'd, current med profile rev'd Telemetry Interpretation: SR rate 66 Diagnosis, Assessment Plan Free Text DxA P Notes Free Text DxA P Notes: This Is a 67-year-old female with a past medical history of hypertension, hyperlipidemia, aortic valve stenosis, mitral regurgitation. The patient was admitted for evaluation of severe aortic valve stenosis (HAILE 0.9 cm, peak gradient 37 mmHg, mean 60 mmHg) and severe mitral regurgitation. ECHO on 03/09/23 shows LVEF of 55-60%. Per CT, she underwent left heart catheterization at [facility] showing no significant coronary artery disease. 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 Severe Aortic Stenosis s/p AVR and ALAA on 03/08/23 BP 90s/50s SR rate 66 off epinephrine drip Levo drip remains CT x1 sitting in chair, no SOB at rest and during conversation. Meds: Metoprolol Tartrate 12.5mg bid, Amiodarone 200mg TID, ASA Plan * discussed with Dr Perez * Con't above meds * wean off Levophed as tolerated * daily BMP * Keep CVP 8-10 * MAP 65-70 * strict I O, daily wt * con't PT Sera Perez 03/10/23 0923: Attestations Physician Attestation Agree w/findings plan: Agree with the findings and plan as documented by KING I have seen and examined this patient I have reviewed the history and repeated the cordero elements I have reviewed the progress in the clinical course since the last examination I have discussed the patient's condition with other consultants and members of the care team I have independently interpreted available diagnostic studies (EKG CXR Echo Cardiac cath) * my personal evaluation is Status post bioprosthetic AVR (25 Inspiris valve) 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 Total time spent providing critical care (non-overlapping/non-continuous time): 35 minutes Life threatening disease VHD-status post aortic valve replacement for aortic stenosis during this admission Invasive hemodynamic monitoring RV failure: acute on chronic Organ systems impaired or failing: Cardiac at 1610 at 0959 RPT #:[id number] END OF REPORT [facility] 2023-03-09 14:59:00 [id number] [place] [address] PATIENT NAME: SALINA LAFLEUR ADMIT DATE: 03/08/23 ACCOUNT NO: [id number] ROOM NO: [facility] AGE: 67 REPORT TYPE: eECHOCARDIOGRAM REPORT SEX: F ADMITTING PHYSICIAN:Svitlana Lui MD ATTENDING PHYSICIAN:Svitlana Lui MD *[place] [address] Transthoracic Echocardiogram Patient: Salina Lafleur Study Date: 03/09/2023 BP: 93 / 52 URN: [id number] Location: : 1955 Age: 67 Gender: F Height: 64 in / 162.6 cm Weight: 185 lb / 83.9 kg BMI/BSA: 31.7 kg/m 2 / 1.98 m 2 *Ordering Physician: * Andrey Rendon *Interpreting Physician: * Elisa Pham MD Indications: Rule out tamponade Post AVR. Study data: Transthoracic echocardiogram. Procedure: A transthoracic echocardiogram was performed. Image quality was adequate. Complete 2D, complete spectral Doppler, and color Doppler. Location: [facility]. Patient status: Inpatient. Patient room number: 2204. Study status: Routine. Heart rate: 72 bpm. Rhythm: Normal sinus rhythm. Findings Left ventricle: The cavity size is normal. Wall thickness is mildly increased. Systolic function is normal. The estimated ejection fraction is 55-60%. Wall motion is normal; there are no regional wall motion abnormalities. Left ventricular diastolic function parameters are normal for the patient's age. PATIENT NAME: SALINA LAFLEUR Right ventricle: The cavity size is mildly dilated. Systolic function is moderately reduced. Left atrium: The atrium is normal in size. Right atrium: The atrium is normal in size. Aorta: Aortic root: The root is normal-sized. Aortic valve: A bioprosthetic valve is present. The findings are consistent with mild stenosis. There is no regurgitation. Mitral valve: The valve is structurally normal. There is no evidence of stenosis. There is mild regurgitation. Tricuspid valve: Estimated right ventricular systolic pressure is 44 mmHg. The valve is structurally normal. There is moderate regurgitation. Pulmonic valve: The valve is structurally normal. There is mild regurgitation. Pericardium: A trivial pericardial effusion is identified posterior to the heart. Pulmonary arteries: The main pulmonary artery is normal-sized. Systemic veins: Inferior vena cava: The IVC is upper normal-sized. Respirophasic diameter changes are blunted (< 50%). Measurements Left ventricle Value Ref KEYANA, LAX 4.3 cm 3.8 - 5.2 ESD, LAX 2.9 cm 2.2 - 3.5 FS, LAX 32 % 27 - 45 KEYANA major ax, A2C 6.9 cm --------- ESD major ax, A2C 5.7 cm --------- IVS, ED 1.2 cm 0.6 - 0.9 PW, ED 1.0 cm 0.6 - 0.9 IVS/PW, ED 1.19 --------- EF 61 % 54 - 74 E', lat patrick, TDI 13.1 cm/sec >=10.0 E/e', lat patrick, TDI 8 <=13 E', med patrick, TDI 7.8 cm/sec >=7.0 E/e', med patrick, TDI 13 --------- E', avg, TDI 10.4 cm/sec --------- E/e', avg, TDI 10 <=14 LVOT Value Ref Diam, S 1.93 cm --------- Area 2.9 cm 2 --------- Peak julio cesar, S 1.14 m/sec --------- Mean julio cesar, S 0.91 m/sec --------- VTI, S 24.7 cm --------- Peak grad, S 5 mm Hg --------- Mean grad, S 3 mm Hg --------- SV 73 ml --------- Qs 5.19 L/min --------- Qs/bsa 2.6 L/(min-m 2) --------- SV/bsa 37 ml/m 2 --------- PATIENT NAME: SALINA LAFLEUR Right ventricle Value Ref KEYANA, LAX 3.4 cm --------- TAPSE, MM 1.0 cm >=1.7 S' lateral 9.5 cm/sec >=9.5 RVOT Value Ref Peak v, S 0.91 m/sec --------- Peak grad, S 3 mm Hg --------- Left atrium Value Ref AP dim, ES 3.9 cm 2.7 - 3.8 Vol/bsa, S 32 ml/m 2 16 - 34 Vol/bsa, ES, 1-p A4C 28 ml/m 2 11 - 40 Vol, ES, 2-p 63 ml --------- Vol/bsa, ES, 2-p 32 ml/m 2 16 - 34 Vol/bsa, ES, A/L 29 ml/m 2 16 - 34 AP dim, ES MM 4.7 cm 2.7 - 3.8 LA/Ao root ratio, MM 1.61 --------- Right atrium Value Ref Area, ES 18 cm 2 10 - 18 SI dim, ES, A4C 5.0 cm 3.4 - 5.3 Vol, ES, A/L 54 ml --------- Vol, ES, 1-p A4C 51 ml --------- Vol/bsa, ES, 1-p A4C 26 ml/m 2 9 - 33 Aortic valve Value Ref Leaflet sep, MM 1.96 cm --------- Peak v, S 2.8 m/sec --------- Mean v, S 1.91 m/sec --------- VTI, S 55.5 cm --------- Mean grad, S 16 mm Hg --------- Peak grad, S 30.3 mm Hg --------- LVOT/AV, VTI ratio 0.45 --------- HAILE, VTI 1.31 cm 2 --------- LVOT/AV, Vpeak ratio 0.41 --------- HAILE, Vmax 1.21 cm 2 --------- Mitral valve Value Ref Mean v, D 0.61 m/sec --------- Peak E 1.01 m/sec --------- Peak A 0.64 m/sec --------- VTI leaflet coapt 28.9 cm --------- MiV/LVOT VTI 1.2 --------- Decel time 203 ms --------- PHT 58 ms --------- Mean grad, D 2 mm Hg --------- Peak grad, D 6.2 mm Hg --------- Peak E/A ratio 1.58 --------- MVA, PHT 3.8 cm 2 --------- MR peak v 4.58 m/sec --------- Tricuspid valve Value Ref TR peak v 3 m/sec <=2.8 PATIENT NAME: SALINA LAFLEUR Peak RV-RA grad, S 36 mm Hg --------- Aortic root Value Ref Root diam, ED MM 2.9 cm --------- Conclusions Summary: 1. Left ventricle: The cavity size is normal. Wall thickness is mildly increased. Systolic function is normal. The estimated ejection fraction is 55-60%. Wall motion is normal; there are no regional wall motion abnormalities. Left ventricular diastolic function parameters are normal for the patient's age. 2. Right ventricle: The cavity size is mildly dilated. Systolic function is moderately reduced. 3. Aortic valve: A bioprosthetic valve is present. The findings are consistent with mild stenosis. The peak systolic velocity is 2.8 m/sec. The mean systolic gradient is 16 mm Hg. The peak systolic gradient is 30.3 mm Hg. 4. Mitral valve: There is mild regurgitation. 5. Tricuspid valve: There is moderate regurgitation. 6. Pulmonic valve: There is mild regurgitation. Electronically signed by Elisa Pham MD 03/09/2023 14:59 at 1459 PATIENT NAME: SALINA LAFLEUR [facility] 2023-03-09 11:28:00 [facility] Critical Care Progress Note REPORT#:[id number] REPORT STATUS: Signed REPORT INITIALIZATION DATE:03/09/23 TIME: 1127 PATIENT: SALINA LAFLEUR UNIT #: [id number] ROOM/BED: [place] [address] : [birth year] AGE: 67 SEX: F ATTEND: Svitlana Lui MD ADM AUTHOR: Franck Hsieh MD REPT SERVICE DT/TIME: 03/09/231127 * ALL edits or amendments must be made on the electronic/computer document * Subjective Chief complaint: AVR (25 Inspiris) STEPHEN HPI: 67-year-old female with a past medical history of hypertension, hyperlipidemia, aortic valve stenosis, mitral regurgitation who was admitted for aortic and mitral valve replacement. Patient preoperatively was found to have severe aortic stenosis and severe mitral regurgitation. Intraoperatively today her mitral valve appears okay. With no significant regurgitation. Patient underwent AVR. Intraoperatively patient received 1.5 L crystalloid, 960 Cell Saver. Urine output was 900 cc. EBL was 300. Patient arrived to ICU intubated on mechanical ventilation. She was on 2 of epinephrine and 2 of Levophed. [address] 03/09 Patient on nasal cannula this morning, blood pressure in the lower side, this morning she is on 2 of Levophed and 2 of epinephrine. Chest tube output 270 mL overnight. Received 2 boluses of albumin overnight. Objective General VS/I O Last Documented: Result Date Time Pulse Ox 99 03/09 1115 B/P 91/54 03/09 1115 B/P Mean 71 03/09 111 Pulse 63 03/09 1115 Resp 18 03/09 1115 Temp 36.5 03/09 1100 O2 Delivery Room air 03/09 0740 FiO2 24 03/09 0357 O2 Flow Rate 1 03/09 0357 24 hour I O ending at 0700: 03/09 0700 03/08 1900 Intake Total 2618.30 2574.00 Output Total 895 1950 Balance 1723.30 624.00 Intake, IV 2018.30 1074.00 Intake, Oral 600 Intake, Other 1500 Output, Chest 230 150 Tube Drainage Output, 300 Estimated Blood Loss Output, Urine 665 1500 Patient 83.9 kg Weight Weight Bed scale Measurement Method PATIENT WEIGHT: Weight (lb): 184 Weight (oz): 15.49 Weight (kg): 83.900 Medications: Active Meds + DC'd Last 24 Hrs Ipratropium Pac[place] (ATROVENT) 500 MCG RTQ2H PRN PRN INH Cyanocobalamin (Vitamin B-12 500 mcg tab) 500 MCG DAILY PO Ferrous Sulfate (FERROUS SULFATE) 325 MG DAILY PO Bisacodyl (DULCOLAX) 10 MG ONCE PRN RECTAL Magnesium Hydroxide (MILK OF MAGNESIA) 30 ML ONCE PRN PO Atorvastatin Calcium (LIPITOR) 40 MG 2100 PO Escitalopram Oxalate (LEXAPRO) 10 MG DAILY PO Polyethylene Glycol (MIRALAX) 17 GM DAILY PO Ropinirole HCl (REQUIP) 2 MG TID PO Albumin Human (ALBUMINAR 5% 12.5GM/250ML) 250 ML ONCE ONE IV (DC) Verapamil HCl (ISOPTIN) 16.6 MG .Q24H ONE IV (CKD) Heparin Sodium (Porcine) (HEPARIN SODIUM) 1,660 UNIT Sodium Bicarbonate (SODIUM BICARBONATE) 0.7 ML Nitroglycerin/Dextrose (NITROGLYCERIN 50MG/D5W 250ML) 8.3 MG Lactated Ringer's (LACTATED RINGERS) 949.5 ML Albumin Human (ALBUMINAR 5% 12.5GM/250ML) 250 ML ONCE ONE IV (DC) Vancomycin HCl (VANCOMYCIN HCL) 1,000 MG Q12H IV Sodium Chloride (SODIUM CHLORIDE 0.9%) 250 ML Albumin Human (ALBUMINAR 5% 12.5GM/250ML) 250 ML ONCE ONE IV (DC) Amiodarone HCl (CORDARONE) 200 MG TID PO Docusate Sodium (COLACE) 100 MG BID PO Metoprolol Tartrate (LOPRESSOR) 12.5 MG Q12HR PO Sennosides (Senna Lax 8.6 MG TABLET) 17.2 MG BEDTIME PO Aspirin (ASPIRIN) 81 MG DAILY PO Ipratropium [place] (ATROVENT) 500 MCG RTQ4H INH Mupirocin (BACTROBAN 2% 22 GM OINTMENT) 1 APPLIC BID NASAL Acetaminophen (TYLENOL) 650 MG Q4H PRN PRN PO Acetaminophen (TYLENOL) 650 MG Q4H PRN PRN RECTAL Albumin Human (ALBUMINAR 25%) 25 GM ASDIR PRN IV Calcium Chloride (CALCIUM CHLORIDE) 1 GM ASDIR PRN IV Cefazolin Sodium (KEFZOL OR ANCEF) 6 GM ONCE ONE IV (DC) Sodium Chloride (SODIUM CHLORIDE 0.9%) 500 ML Dextrose/Water (DEXTROSE 10% IN WATER) 125 ML ASDIR PRN IV (CKD) Dextrose/Water (DEXTROSE 10% IN WATER) 250 ML ASDIR PRN IV (CKD) Epinephrine (ADRENALIN CHLORIDE) 4 MG ASDIR IV Dextrose/Water (DEXTROSE 5% WATER) 246 ML Glucagon (GLUCAGON) 1 MG ASDIR PRN IM Insulin Human Regular (HumuLIN R) 100 UNIT ASDIR IV (CKD) Sodium Chloride (SODIUM CHLORIDE 0.9%) 99 ML Magnesium Sulfate (MAGNESIUM SULFATE 4GM/SWFI 100ML) 100 ML ASDIR PRN IV Magnesium Sulfate (MAGNESIUM SULFATE 2GM/SWFI 50ML) 50 ML ASDIR PRN IV Magnesium Sulfate/Dextrose (MAGNESIUM SULFATE 1GM/D5W 100ML) 100 ML ASDIR PRN IV Nitroglycerin/Dextrose (NITROGLYCERIN 50,000MCG/D5W 250ML) 250 ML ASDIR IV Norepinephrine Bitartrate (NOREPINEPHRINE 8 MG/NS 250 ML) 250 ML TITRATE IV Ondansetron HCl (ZOFRAN) 4 MG Q6H PRN PRN IV Oxycodone HCl (ROXICODONE) 5 MG Q4H PRN PRN PO Oxycodone HCl (ROXICODONE) 10 MG Q4H PRN PRN PO Potassium Chloride (KCL 20MEQ/SWFI 100ML) 100 ML ASDIR PRN IV Sodium Bicarbonate (SODIUM BICARBONATE) 50 MEQ ASDIR PRN IV Sodium Chloride (SODIUM CHLORIDE 0.9%) 1,000 ML .Q20H IV Sodium Chloride (SODIUM CHLORIDE 0.9%) 250 ML Q24H IV Metoprolol Tartrate (LOPRESSOR) 6.25 MG PREOP ONCALL PO (DC) Cefazolin Sodium (KEFZOL OR ANCEF) 2 GM PREOP ONCALL IV (DC) Sodium Chloride (SODIUM CHLORIDE) 20 ML ASDIR IV Acetaminophen (TYLENOL EXTRA STRENGTH) 1,000 MG PREOP ONCALL PO (DC) Gabapentin (NEURONTIN) 200 MG PREOP ONCALL PO (DC) Lactated Ringer's (LACTATED RINGERS) 1,000 ML PREOP ONCALL IV (DC) Lidocaine HCl (LIDOCAINE HCL/PF) 2 ML PREOP ONCALL LOCAL (DC) Lidocaine HCl (LIDOCAINE HCL/PF) 2 ML PREOP ONCALL LOCAL (DC) Sodium Chloride (SODIUM CHLORIDE 0.9%) 500 ML PREOP ONCALL IV (DC) Sodium Chloride (SODIUM CHLORIDE 0.9%) 500 ML PREOP ONCALL IV (DC) Sodium Chloride (SODIUM CHLORIDE 0.9%) 1,000 ML PREOP ONCALL IV (DC) Sodium Chloride (SODIUM CHLORIDE) 5 ML ASDIR PRN IV (DC) Sodium Chloride (SODIUM CHLORIDE) 10 ML ASDIR PRN IV (DC) Sodium Chloride (SODIUM CHLORIDE 0.9%) 250 ML ASDIR PRN IV (DC) Results Findings/data: Laboratory Tests 03/09 03/08 03/08 03/08 0128 2001 1813 1634 Blood Gas Puncture Site Art Line Art Line Art Line Art Line O2 Saturation (90 - 100 %) 94.7 93.7 97.1 99.4 ABG pH (7.35 - 7.45) 7.394 7.358 7.359 7.357 ABG pCO2 (35.0 - 45 mmHg) 42.2 44.4 43.5 41.4 ABG pO2 (80 - 100.0 mmHg) 78.4 L 74.5 L 95.8 159.8 H ABG PO2/FiO2 Ratio (mm/Hg) 399.50 ABG HCO3 (22.0 - 26.0 MMOL/L) 25.5 24.9 24.5 23.3 ABG Total CO2 26.8 26.2 25.8 24.6 ABG Base Excess (-4.0 - 4.0 MMOL/L) 0.9 -0.5 -1.0 -2.3 ABG Hematocrit (33.0 - 45.0 %) 29 L 32 L 32 L 34 ABG Hemoglobin (11.0 - 15.0 G/DL) 9.9 L 10.9 L 10.8 L 11.5 Benjamin Test N/A N/A Sodium (134 - 147 mmol/L) 140 141 141 141 Potassium (3.4 - 5.0 mmol/L) 4.7 4.5 4.6 4.4 Chloride (100 - 108 mmol/L) 104 108 108 109 H Ionized Calcium (1.12 - 1.32 MMOL/L) 1.27 1.26 1.24 1.23 Lactic Acid (0.9 - 1.7 mmol/l) 1.0 0.7 L 0.9 1.0 Temperature (F) 100.2 99.3 98.8 98.2 O2 Delivery Device Cannula Cannula Cannula Adult Vent Vent Mode CPAP/PS Vent Rate (/MIN) 16 FiO2 (%) 40 PEEP (cmH2O) 5 Pressure Support (cmH2O) 5 03/08 03/08 03/08 03/08 1502 1403 1326 1318 Blood Gas Puncture Site Art Line Art Line O2 Saturation (90 - 100 %) 98.6 98.8 100.0 99.8 ABG pH (7.35 - 7.45) 7.326 L 7.331 L 7.286 *L 7.134 *L ABG pCO2 (35.0 - 45 mmHg) 47.7 H 47.5 H 55.7 *H 41.9 ABG pO2 (80 - 100.0 mmHg) 125.8 H 133.4 H 410.5 *H 313.9 *H ABG PO2/FiO2 Ratio (mm/Hg) 314.50 266.80 ABG HCO3 (22.0 - 26.0 MMOL/L) 25.1 25.2 26.5 H 14.1 *L ABG Total CO2 26.6 26.6 28.3 15.3 ABG Base Excess (-4.0 - 4.0 -1.1 -0.8 -0.8 -14.3 L MMOL/L) ABG Hematocrit (33.0 - 45.0 %) 35 35 32 L 32 L ABG Hemoglobin (11.0 - 15.0 G/DL) 11.9 11.9 10.8 L 10.8 L Benjamin Test N/A Sodium (134 - 147 mmol/L) 142 143 143 149 H Potassium (3.4 - 5.0 mmol/L) 4.4 4.1 4.0 4.1 Chloride (100 - 108 mmol/L) 107 112 H 109 H 110 H Ionized Calcium (1.12 - 1.32 1.32 1.34 H 1.30 1.25 MMOL/L) Lactic Acid (0.9 - 1.7 mmol/l) 1.4 0.8 L 0.8 L Temperature (F) 97.5 98 O2 Delivery Device Adult Vent Adult Vent Vent Mode AC AC Vent Rate (/MIN) 20 20 FiO2 (%) 40 50 Tidal Volume (ml) 410 380 PEEP (cmH2O) 5 5 03/08 03/08 1233 1159 Blood Gas O2 Saturation (90 - 100 %) 100.0 100.0 ABG pH (7.35 - 7.45) 7.449 7.433 ABG pCO2 (35.0 - 45 mmHg) 39.6 41.7 ABG pO2 (80 - 100.0 mmHg) 432.2 *H 401.9 *H ABG HCO3 (22.0 - 26.0 MMOL/L) 27.4 H 27.9 H ABG Total CO2 28.7 29.1 ABG Base Excess (-4.0 - 4.0 MMOL/L) 3.2 3.2 ABG Hematocrit (33.0 - 45.0 %) 28 L 29 L ABG Hemoglobin (11.0 - 15.0 G/DL) 9.6 L 10.0 L Sodium (134 - 147 mmol/L) 139 140 Potassium (3.4 - 5.0 mmol/L) 4.9 5.1 H Chloride (100 - 108 mmol/L) 105 106 Ionized Calcium (1.12 - 1.32 MMOL/L) 1.52 H 1.17 Lactic Acid (0.9 - 1.7 mmol/l) 0.6 L < 0.3 L Laboratory Tests 03/09 03/09 03/09 03/08 03/08 1026 0344 0128 2334 2001 Chemistry Sodium (134 - 147 mEq/L) 137 Potassium (3.4 - 5.0 mEq/L) 4.2 Chloride (100 - 108 mEq/L) 112 H Carbon Dioxide (21 - 33 mEq/l) 24 Anion Gap (0 - 20) 5 BUN (7 - 25 mg/dL) 10 Creatinine (0.6 - 1.3 mg/dL) 0.7 POC Creatinine (0.6 - 1.0 mg/dL) 0.7 0.5 L Glomerular Filtr Rate (80 - 90) 94.2 H Glucose (77 - 141 mg/dL) 103 POC Glucose (70 - 110 MG/DL) 136 H 115 H POC Glucose (mg/dL) (70 - 110 MG/DL) 115 H 113 H Calcium (8.0 - 10.5 mg/dL) 8.7 Magnesium (1.6 - 2.6 mg/dL) 2.05 Total Bilirubin (0.0 - 1.0 mg/dL) 0.40 Direct Bilirubin (0.1 - 0.3 MG/DL) 0.20 Indirect Bilirubin (MG/DL) 0.20 AST (8 - 34 IUnit/L) 38 H ALT (10 - 49 IUnit/L) 12 Total Alk Phosphatase (20 - 125 IUnit/L) 44 Total Protein (6.4 - 8.2 g/dL) 5.5 L Albumin (3.4 - 5.0 g/dL) 3.60 03/08 03/08 03/08 03/08 03/08 1813 1634 1502 1403 1347 Chemistry Sodium (134 - 147 mEq/L) 143 Potassium (3.4 - 5.0 mEq/L) 4.2 Chloride (100 - 108 mEq/L) 111 H Carbon Dioxide (21 - 33 mEq/l) 27 Anion Gap (0 - 20) 9 BUN (7 - 25 mg/dL) 14 Creatinine (0.6 - 1.3 mg/dL) 0.6 POC Creatinine (0.6 - 1.0 mg/dL) 0.5 L 0.5 L 0.6 0.5 L Glomerular Filtr Rate (80 - 90) 97.7 H Glucose (77 - 141 mg/dL) 120 POC Glucose (mg/dL) (70 - 110 MG/DL) 114 H 111 H 108 118 H Calcium (8.0 - 10.5 mg/dL) 8.4 Magnesium (1.6 - 2.6 mg/dL) 2.83 H 03/08 03/08 03/08 03/08 1326 1318 1233 1159 Chemistry POC Creatinine (0.6 - 1.0 mg/dL) 0.5 L 0.5 L 0.5 L 0.5 L POC Glucose (mg/dL) (70 - 110 MG/DL) 111 H 120 H 114 H 116 H Laboratory Tests 03/08 03/08 03/08 03/08 1347 1316 1235 1201 Coagulation INR (0.8 - 1.2) 1.1 PTT ([place]) (25.0 - 39.5 Seconds) 28.9 PT Patient/Control Mix (9.3 - 12.9 SECONDS) 12.6 Activated Coag Time (74 - 137 SEC) 152 H 585 H 682 H Laboratory Tests 03/09 03/08 0344 1347 Hematology WBC (4.5 - 11.0 x10 3/uL) 11.0 15.3 H RBC (3.54 - 5.02 x10 6/uL) 3.04 L 3.51 L Hgb (11.0 - 15.0 g/dL) 9.7 L 11.2 Hct (33.0 - 45.0 %) 30.5 L 34.1 MCV (81.0 - 99.0 fL) 100.3 H 97.2 MCH (27.0 - 33.0 pg) 31.9 31.9 MCHC (33.0 - 37.0 g/dL) 31.8 L 32.8 L RDW (11.5 - 14.5 %) 14.6 H 14.5 Plt Count (150 - 400 x10 3/uL) 138 L 186 MPV (7.0 - 9.0 fL) 9.6 H 8.9 Neut % (Auto) (56.0 - 77.0 %) 77.2 H 82.7 H Lymph % (Auto) (14.0 - 32.0 %) 14.2 13.0 L Riley % (Auto) (4.8 - 9.0 %) 8.1 2.6 L Eos % (Auto) (0.3 - 3.7 %) 0.0 L 0.7 Baso % (Auto) (0.0 - 2.0 %) 0.1 0.2 Neut # (Auto) (2.0 - 7.6 x10 3/uL) 8.52 H 12.62 H Lymph # (Auto) (1.0 - 3.8 x10 3/uL) 1.56 1.98 Riley # (Auto) (0.1 - 0.8 x10 3/uL) 0.89 H 0.40 Eos # (Auto) (0.0 - 0.2 x10 3/uL) 0.00 0.10 Baso # (Auto) (0.0 - 0.2 x10 3/uL) 0.01 0.03 Abs Immat Gran (auto) (0.00 - 0.03 x10 3/uL) 0.04 H 0.12 H Add Manual Diff NO Immature Gran % (0.0 - 2.0 %) 0.4 0.8 Nucleated RBC % (0 - 0 %) 0.0 0.0 Nucleated RBCs # (Man) (0.0 - 0.1 x10 3/uL) 0.00 0.00 Laboratory Tests 03/09/23 0344: [Embedded Image Not Available] 03/08/23 1347: [Embedded Image Not Available] Microbiology: 03/08 1154 TISSUE: Acid Fast Bacilli Smear - RECD 03/08 1154 TISSUE: Acid Fast Bacilli Culture - RECD 03/08 1154 TISSUE: Fungal Smear - RES 03/08 1154 TISSUE: Fungal Culture - RES 03/08 1154 OTHER TISS: Tissue Culture - RES 03/08 1154 OTHER TISS: Anaerobic Culture - RES 03/08 1154 OTHER TISS: Gram Stain - RES Radiology data Recent Impressions: RADIOLOGY - XR CHEST 1 V 03/08 1433 Report Impression - Status: SIGNED Entered: 03/08/2023 1506 IMPRESSION: Endotracheal tube in good position. Right IJ Huron-Stef catheter probably in the proximal main pulmonary artery. Minimal central vascular congestion. Impression By: [email or web address] - Gauri Meeks M.D. RADIOLOGY - XR CHEST 1 V 03/09 0646 Report Impression - Status: SIGNED Entered: 03/09/2023 0731 IMPRESSION: There is mild pulmonary vascular prominence. There are minimal patchy opacities in the lung bases bilaterally. This could be due to atelectasis or pneumonia. Impression By: Tato Rodriguez M.D. Free Text Obj Notes Free Text Obj Notes: Elderly lady on nasal Pupil equal reactive to light Neck supple Chest with sternotomy dressing, [address] Heart S1-S2 Abdomen soft, bowel sound present Extremities no edema TICK SEWER intact Diagnosis, Assessment Plan Free text A P: Severe s/p AVR Postoperative respiratory insufficiency after cardiac surgery Hypotension Leukocytosis COPD Postoperative pain Patient underwent AVR today, her mitral valve appeared okay. EF was normal. On arrival to ICU patient was on a low-dose of epinephrine and Levophed, we will wean off to keep MAP at 65. Patient was still under sedation, she was on assist control ventilation, will wean to extubate. Will monitor chest tube output. Monitor urine output. Monitor kidney function, replace electrolyte as needed. Pain management. Bronchodilator as needed. Aspiration precaution. Monitor H H , transfuse as needed. GI and DVT prophylaxis. Patient will need incentive spirometry after extubation. 03/09 Patient was extubated successfully yesterday, she is on nasal cannula this morning. Will wean down oxygen to keep saturation of 92%. Incentive spirometry. Bronchodilator as needed. Pulmonary toileting. Blood pressure in the lower side, she is on 2 of epinephrine and 2 of Levophed this morning, we did stop her epinephrine initially. Will wean off Levophed to keep MAP at 65. Continue to monitor urine output. Monitor kidney function. Replace electrolyte as needed. Out of bed to chair. PT and OT. Monitor chest tube output. GI and DVT prophylaxis. Continue engine monitor. Follow-up with thoracic surgery recommendation. Case was discussed at bedside with the nursing staff, respiratory therapist, pharmacist, social problems specialist and cardiothoracic surgery team. Critical care time spent in excess of 40 minutes, excluding procedure time at 1747 RPT #:[id number] END OF REPORT [facility] 2023-03-09 05:43:00 [id number] [address] PATIENT NAME: SALINA LAFLEUR ADMIT DATE: 03/08/23 ACCOUNT NO: [id number] ROOM NO: G.[id number] AGE: 67 REPORT TYPE: eELECTROCARDIOGRAM REPORT SEX: F ADMITTING PHYSICIAN:Svitlana Lui MD ATTENDING PHYSICIAN:Svitlana Lui MD Order: [id number] Test Reason : DECREASED B/P Test Date/Time Stamp: WedMar 09 2023 05:43:19 Blood Pressure : / mmHG Vent. Rate : 069 BPM Atrial Rate : 069 BPM P-R Int : 180 ms QRS Dur : 108 ms QT Int : 398 ms P-R-T Axes : 063 038 033 degrees QTc Int : 426 ms Normal sinus rhythm Normal ECG When compared with ECG of 08-MAR-2023 14:15, No significant change was found Confirmed by MD MCINTYRE GERARD ([id number]) on 03/10/2023 7:02:41 AM Referred By: Svitlana Lui Confirmed by:KATLYN MCINTYRE MD at 0702 PATIENT NAME: SALINA LAFLEUR [facility] 2023-03-08 18:52:00 [facility] ([facility]) Cardiology Consultation REPORT#:[id number] REPORT STATUS: Signed REPORT INITIALIZATION DATE:03/08/23 TIME: 1851 PATIENT: SALINA LAFLEUR UNIT #: [id number] ROOM/BED: [place] [address] : 54 AGE: 67 SEX: F ATTEND: Svitlana Lui MD ADM AUTHOR: Elisa Pham MD REPT SERVICE DT/TIME: 03/08/231851 * ALL edits or amendments must be made on the electronic/computer document * History of Present Illness HPI Requesting Clinician: Dr. 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 patient underwent SAVR. She is doing okay. History - Adult longitudinal Additional medical history: 1. HTN 2. COPD 3. Severe 4. Severe MR Additional surgical history: 1. LHC - no CAD 2. JAMES - severe MR, Severe 3. Hip surgery Family history: Denies: CAD < 40 yrs old. Alcohol use: Denies EtOH use Drug use: Denies recreational drugs Smoking status for patients 13 years old or older: Former Smoker Home medications: Home Medications: BUDESONIDE/FORMOTEROL FUMARATE (SYMBICORT 80/4.5 MCG/ACT) 2 PUFF INH BID IRBESARTAN/HCTZ (AVALIDE 150/12.5 MG) 1 TAB PO DAILY ROSUVASTATIN (CRESTOR) 5 MG PO BEDTIME MULTIVITAMIN (MULTIPLE VITAMIN) 1 TAB PO DAILY rOPINIRole (REQUIP) 2 MG PO TID ESCITALOPRAM (LEXAPRO) 10 MG PO DAILY Allergies: Coded Allergies: sulfamethoxazole (From BACTRIM) (Mild, HIVES 01/20/23) trimethoprim (From BACTRIM) (Mild, HIVES 01/20/23) Review of Systems Additional notes: As per [facility] otherwise -12 system Objective General VS/I O: Vital Signs: Date Time Temp Pulse Resp B/P B/P Pulse O2 O2 Flow FiO2 Mean Ox Delivery Rate 03/08 1830 116/58 80 03/08 1830 99.0 61 15 122/51 77 100 03/08 1815 119/59 83 03/08 1815 98.8 60 14 122/52 78 100 / 1800 117/61 84 03/08 1800 98.8 60 17 100/57 77 100 03/08 1745 109/58 80 03/08 1745 98.6 53 16 114/47 72 100 03/08 1730 118/59 83 03/08 1730 98.6 60 16 123/55 81 100 03/08 1715 118/61 84 03/08 1715 98.4 59 25 120/57 81 100 / 1700 117/59 85 03/08 1700 98.2 61 23 119/55 79 99 03/08 1645 127/65 88 03/08 1645 98.4 58 20 135/60 88 100 03/08 1630 118/61 83 / 1630 98.2 59 15 123/58 83 100 03/08 1615 122/63 86 03/08 1615 98.2 59 14 124/59 84 100 03/08 1600 124/60 85 12/ 1600 98.2 58 19 124/59 84 100 12/ 1600 58 23 100 12/ 1600 58 100 40 12/11 1545 122/60 86 / 1545 98.1 57 22 130/60 87 100 /11 1530 126/64 88 / 1530 98.1 58 23 127/62 87 100 12/11 1515 127/60 87 / 1515 91.0 55 20 133/62 88 100 12/ 1506 100 Ventilator 40 / 1506 66 100 40 12/11 1500 125/62 87 / 1500 97.5 56 20 130/62 87 100 / 1445 115/57 82 12/11 1445 97.7 56 20 128/59 85 100 / 1430 87/54 63 / 1430 95.7 56 20 96/52 70 100 / 1416 97.7 59 22 89/53 65 100 / 1400 125/57 82 / 1400 67 21 127/66 90 100 / 1359 114/57 80 / 1359 80 20 123/69 90 100 / 1350 Ventilator 40 03/08 1350 60 100 40 /11 0623 96.8 65 16 128/67 100 24 hour I O ending at 0700: 03/08 0700 03/07 1900 Intake Total Output Total Balance Patient 81.818 kg Weight Weight Stated/Reported Measurement Method PATIENT WEIGHT: Weight (lb): 184 Weight (oz): 15.49 Weight (kg): 83.900 General appearance: alert, awake, oriented Head/Eyes: PERRLA ENT: normal nose Neck: no JVD Cardiovascular: CV assessment: regular rate and rhythm, normal heart sounds Respiratory: clear to auscultation, no distress Abdomen: soft Lower extremity: LE assessment: no cyanosis, no edema Neuro/TICK SEWER: alert, oriented X 3, normal speech Skin: dry, intact Psychiatry: normal affect, normal judgment/insight, normal mood, no hallucinations Medications: Active Meds + DC'd Last 24 Hrs Ipratropium Pacolet (ATROVENT) 500 MCG RTQ2H PRN PRN INH Cyanocobalamin (Vitamin B-12 500 mcg tab) 500 MCG DAILY PO Ferrous Sulfate (FERROUS SULFATE) 325 MG DAILY PO Bisacodyl (DULCOLAX) 10 MG ONCE PRN RECTAL Magnesium Hydroxide (MILK OF MAGNESIA) 30 ML ONCE PRN PO Atorvastatin Calcium (LIPITOR) 40 MG 2100 PO Polyethylene Glycol (MIRALAX) 17 GM DAILY PO Verapamil HCl (ISOPTIN) 16.6 MG .Q24H ONE IV (CKD) Heparin Sodium (Porcine) (HEPARIN SODIUM) 1,660 UNIT Sodium Bicarbonate (SODIUM BICARBONATE) 0.7 ML Nitroglycerin/Dextrose (NITROGLYCERIN 50MG/D5W 250ML) 8.3 MG Lactated Ringer's (LACTATED RINGERS) 949.5 ML Vancomycin HCl (VANCOMYCIN HCL) 1,000 MG Q12H IV Sodium Chloride (SODIUM CHLORIDE 0.9%) 250 ML Amiodarone HCl (CORDARONE) 200 MG TID PO Docusate Sodium (COLACE) 100 MG BID PO Metoprolol Tartrate (LOPRESSOR) 12.5 MG Q12HR PO Sennosides (Senna Lax 8.6 MG TABLET) 17.2 MG BEDTIME PO Aspirin (ASPIRIN) 81 MG DAILY PO Ipratropium Pacolet (ATROVENT) 500 MCG RTQ4H INH Mupirocin (BACTROBAN 2% 22 GM OINTMENT) 1 APPLIC BID NASAL Acetaminophen (TYLENOL) 650 MG Q4H PRN PRN PO Acetaminophen (TYLENOL) 650 MG Q4H PRN PRN RECTAL Albumin Human (ALBUMINAR 25%) 25 GM ASDIR PRN IV Calcium Chloride (CALCIUM CHLORIDE) 1 GM ASDIR PRN IV Cefazolin Sodium (KEFZOL OR ANCEF) 6 GM ONCE ONE IV (CKD) Sodium Chloride (SODIUM CHLORIDE 0.9%) 500 ML Dextrose/Water (DEXTROSE 10% IN WATER) 125 ML ASDIR PRN IV (CKD) Dextrose/Water (DEXTROSE 10% IN WATER) 250 ML ASDIR PRN IV (CKD) Epinephrine (ADRENALIN CHLORIDE) 4 MG ASDIR IV Dextrose/Water (DEXTROSE 5% WATER) 246 ML Glucagon (GLUCAGON) 1 MG ASDIR PRN IM Insulin Human Regular (HumuLIN R) 100 UNIT ASDIR IV (CKD) Sodium Chloride (SODIUM CHLORIDE 0.9%) 99 ML Magnesium Sulfate (MAGNESIUM SULFATE 4GM/SWFI 100ML) 100 ML ASDIR PRN IV Magnesium Sulfate (MAGNESIUM SULFATE 2GM/SWFI 50ML) 50 ML ASDIR PRN IV Magnesium Sulfate/Dextrose (MAGNESIUM SULFATE 1GM/D5W 100ML) 100 ML ASDIR PRN IV Nitroglycerin/Dextrose (NITROGLYCERIN 50,000MCG/D5W 250ML) 250 ML ASDIR IV Norepinephrine Bitartrate (NOREPINEPHRINE 8 MG/NS 250 ML) 250 ML TITRATE IV Ondansetron HCl (ZOFRAN) 4 MG Q6H PRN PRN IV Oxycodone HCl (ROXICODONE) 5 MG Q4H PRN PRN PO Oxycodone HCl (ROXICODONE) 10 MG Q4H PRN PRN PO Potassium Chloride (KCL 20MEQ/SWFI 100ML) 100 ML ASDIR PRN IV Sodium Bicarbonate (SODIUM BICARBONATE) 50 MEQ ASDIR PRN IV Sodium Chloride (SODIUM CHLORIDE 0.9%) 1,000 ML .Q20H IV Sodium Chloride (SODIUM CHLORIDE 0.9%) 250 ML Q24H IV Cefazolin Sodium (KEFZOL OR ANCEF) 0 .STK-MED ONE .ROUTE (DC) Vancomycin HCl (VANCOMYCIN HCL) 0 .STK-MED ONE .ROUTE (DC) Epinephrine HCl (EPINEPHrine 4 mg/D5W 250 mL) 250 ML .STK-MED ONE IV (DC ) Insulin Human Regular (HumuLIN R 100 UNITS/NS 100ML) 100 ML .STK-MED ONE IV (DC) Norepinephrine Bitartrate (NOREPINEPHRINE 8 MG/NS 250 ML) 250 ML .STK-MED ONE IV (DC) Aminocaproic Acid (AMICAR) 0 .STK-MED ONE .ROUTE (DC) Milrinone Lactate/Dextrose (MILRINONE 20MG/D5W 100ML) 100 ML .STK-MED ONE IV (DC) Nitroglycerin/Dextrose (NITROGLYCERIN 50,000MCG/D5W 250ML) 250 ML .STK-MED ONE IV (DC) Protamine Sulfate (PROTAMINE SULFATE) 0 .STK-MED ONE IV (DC) Ropivacaine (NAROPIN 0.5% 150 MG/30mL) 0 .STK-MED ONE .ROUTE (DC) Magnesium Sulfate (MAGNESIUM SULFATE) 0 .STK-MED ONE .ROUTE (DC) Aminocaproic Acid (AMICAR) 0 .STK-MED ONE .ROUTE (DC) Dexamethasone Sodium Phosphate (DECADRON) 0 .STK-MED ONE .ROUTE (DC) Etomidate (AMIDATE) 0 .STK-MED ONE IV (DC) Fentanyl Citrate (SUBLIMAZE) 0 .STK-MED ONE IV (DC) Heparin Sodium (HEPARIN SODIUM) 0 .STK-MED ONE .ROUTE (DC) Lidocaine HCl (XYLOCAINE) 0 .STK-MED ONE .ROUTE (DC) Ondansetron HCl (ZOFRAN) 0 .STK-MED ONE .ROUTE (DC) Rocuronium Pacolet (ZEMURON) 0 .STK-MED ONE IV (DC) Midazolam HCl (VERSED) 0 .STK-MED ONE .ROUTE (DC) Fentanyl Citrate (SUBLIMAZE) 0 .STK-MED ONE .ROUTE (DC) Heparin Sodium (HEPARIN SODIUM) 0 .STK-MED ONE .ROUTE (DC) Sodium Chloride (SODIUM CHLORIDE 0.9%) 100 ML .STK-MED ONE IV (DC) Albumin Human (ALBUMINAR-25%) 50 ML .STK-MED ONE IV (DC) Lidocaine HCl (XYLOCAINE IV) 0 .STK-MED ONE IV (DC) Magnesium Sulfate (MAGNESIUM SULFATE) 0 .STK-MED ONE IV (DC) Phenylephrine HCl (ALEX-SYNEPHRINE 10MG/ML AMP) 0 .STK-MED ONE .ROUTE (DC ) Sodium Bicarbonate (SODIUM BICARBONATE) 0 .STK-MED ONE IV (DC) Metoprolol Tartrate (LOPRESSOR) 6.25 MG PREOP ONCALL PO (DC) Acetaminophen (TYLENOL EXTRA STRENGTH) 0 .STK-MED ONE .ROUTE (DC) Gabapentin (NEURONTIN) 0 .STK-MED ONE .ROUTE (DC) Cefazolin Sodium (KEFZOL OR ANCEF) 2 GM PREOP ONCALL IV (DC) Sodium Chloride (SODIUM CHLORIDE) 20 ML ASDIR IV Acetaminophen (TYLENOL EXTRA STRENGTH) 1,000 MG PREOP ONCALL PO (DC) Gabapentin (NEURONTIN) 200 MG PREOP ONCALL PO (DC) Lactated Ringer's (LACTATED RINGERS) 1,000 ML PREOP ONCALL IV (DC) Lidocaine HCl (LIDOCAINE HCL/PF) 2 ML PREOP ONCALL LOCAL (DC) Lidocaine HCl (LIDOCAINE HCL/PF) 2 ML PREOP ONCALL LOCAL (DC) Sodium Chloride (SODIUM CHLORIDE 0.9%) 500 ML PREOP ONCALL IV (DC) Sodium Chloride (SODIUM CHLORIDE 0.9%) 500 ML PREOP ONCALL IV (DC) Sodium Chloride (SODIUM CHLORIDE 0.9%) 1,000 ML PREOP ONCALL IV (DC) Sodium Chloride (SODIUM CHLORIDE) 5 ML ASDIR PRN IV (DC) Sodium Chloride (SODIUM CHLORIDE) 10 ML ASDIR PRN IV (DC) Sodium Chloride (SODIUM CHLORIDE 0.9%) 250 ML ASDIR PRN IV (DC) Results Findings/Data: Laboratory Tests 03/08 03/08 03/08 1813 1634 1502 Blood Gas Puncture Site Art Line Art Line Art Line O2 Saturation (90 - 100 %) 97.1 99.4 98.6 ABG pH (7.35 - 7.45) 7.359 7.357 7.326 L ABG pCO2 (35.0 - 45 mmHg) 43.5 41.4 47.7 H ABG pO2 (80 - 100.0 mmHg) 95.8 159.8 H 125.8 H ABG PO2/FiO2 Ratio (mm/Hg) 399.50 314.50 ABG HCO3 (22.0 - 26.0 MMOL/L) 24.5 23.3 25.1 ABG Total CO2 25.8 24.6 26.6 ABG Base Excess (-4.0 - 4.0 MMOL/L) -1.0 -2.3 -1.1 ABG Hematocrit (33.0 - 45.0 %) 32 L 34 35 ABG Hemoglobin (11.0 - 15.0 G/DL) 10.8 L 11.5 11.9 Sodium (134 - 147 mmol/L) 141 141 142 Potassium (3.4 - 5.0 mmol/L) 4.6 4.4 4.4 Chloride (100 - 108 mmol/L) 108 109 H 107 Ionized Calcium (1.12 - 1.32 MMOL/L) 1.24 1.23 1.32 Lactic Acid (0.9 - 1.7 mmol/l) 0.9 1.0 1.4 Temperature (F) 98.8 98.2 97.5 O2 Delivery Device Cannula Adult Vent Adult Vent Vent Mode CPAP/PS AC Vent Rate (/MIN) 16 20 FiO2 (%) 40 40 Tidal Volume (ml) 410 PEEP (cmH2O) 5 5 Pressure Support (cmH2O) 5 03/08 03/08 03/08 03/08 1403 1326 1318 1233 Blood Gas Puncture Site Art Line O2 Saturation (90 - 100 %) 98.8 100.0 99.8 100.0 ABG pH (7.35 - 7.45) 7.331 L 7.286 *L 7.134 *L 7.449 ABG pCO2 (35.0 - 45 mmHg) 47.5 H 55.7 *H 41.9 39.6 ABG pO2 (80 - 100.0 mmHg) 133.4 H 410.5 *H 313.9 *H 432.2 *H ABG PO2/FiO2 Ratio (mm/Hg) 266.80 ABG HCO3 (22.0 - 26.0 MMOL/L) 25.2 26.5 H 14.1 *L 27.4 H ABG Total CO2 26.6 28.3 15.3 28.7 ABG Base Excess (-4.0 - 4.0 MMOL/L) -0.8 -0.8 -14.3 L 3.2 ABG Hematocrit (33.0 - 45.0 %) 35 32 L 32 L 28 L ABG Hemoglobin (11.0 - 15.0 G/DL) 11.9 10.8 L 10.8 L 9.6 L Benjamin Test N/A Sodium (134 - 147 mmol/L) 143 143 149 H 139 Potassium (3.4 - 5.0 mmol/L) 4.1 4.0 4.1 4.9 Chloride (100 - 108 mmol/L) 112 H 109 H 110 H 105 Ionized Calcium (1.12 - 1.32 MMOL/L) 1.34 H 1.30 1.25 1.52 H Lactic Acid (0.9 - 1.7 mmol/l) 0.8 L 0.8 L 0.6 L Temperature (F) 98 O2 Delivery Device Adult Vent Vent Mode AC Vent Rate (/MIN) 20 FiO2 (%) 50 Tidal Volume (ml) 380 PEEP (cmH2O) 5 03/08 03/08 03/08 03/08 1159 1124 1103 1032 Blood Gas O2 Saturation (90 - 100 %) 100.0 100.0 100.0 100.0 ABG pH (7.35 - 7.45) 7.433 7.436 7.364 7.368 ABG pCO2 (35.0 - 45 mmHg) 41.7 40.2 40.5 45.6 H ABG pO2 (80 - 100.0 mmHg) 401.9 *H 461.0 *H 492.2 *H 491.2 *H ABG HCO3 (22.0 - 26.0 MMOL/L) 27.9 H 27.1 H 23.1 26.2 H ABG Total CO2 29.1 28.3 24.3 27.6 ABG Base Excess (-4.0 - 4.0 MMOL/L) 3.2 2.6 -2.1 0.5 ABG Hematocrit (33.0 - 45.0 %) 29 L 29 L 32 L 37 ABG Hemoglobin (11.0 - 15.0 G/DL) 10.0 L 9.9 L 10.9 L 12.4 Sodium (134 - 147 mmol/L) 140 138 141 142 Potassium (3.4 - 5.0 mmol/L) 5.1 H 5.1 H 3.9 4.4 Chloride (100 - 108 mmol/L) 106 104 108 106 Ionized Calcium (1.12 - 1.32 MMOL/L) 1.17 1.08 L 1.20 1.26 Lactic Acid (0.9 - 1.7 mmol/l) < 0.3 L < 0.3 L < 0.3 L < 0.3 L Laboratory Tests 03/08 03/08 03/08 03/08 03/08 1813 1634 1502 1403 1347 Chemistry Sodium (134 - 147 mEq/L) 143 Potassium (3.4 - 5.0 mEq/L) 4.2 Chloride (100 - 108 mEq/L) 111 H Carbon Dioxide (21 - 33 mEq/l) 27 Anion Gap (0 - 20) 9 BUN (7 - 25 mg/dL) 14 Creatinine (0.6 - 1.3 mg/dL) 0.6 POC Creatinine (0.6 - 1.0 mg/dL) 0.5 L 0.5 L 0.6 0.5 L Glomerular Filtr Rate (80 - 90) 97.7 H Glucose (77 - 141 mg/dL) 120 POC Glucose (mg/dL) (70 - 110 MG/DL) 114 H 111 H 108 118 H Calcium (8.0 - 10.5 mg/dL) 8.4 Magnesium (1.6 - 2.6 mg/dL) 2.83 H 03/08 03/08 03/08 03/08 03/08 1326 1318 1233 1159 1124 Chemistry POC Creatinine (0.6 - 1.0 mg/dL) 0.5 L 0.5 L 0.5 L 0.5 L 0.4 L POC Glucose (mg/dL) (70 - 110 MG/DL) 111 H 120 H 114 H 116 H 109 03/08 03/08 1103 1032 Chemistry POC Creatinine (0.6 - 1.0 mg/dL) 0.4 L 0.4 L POC Glucose (mg/dL) (70 - 110 MG/DL) 101 92 Laboratory Tests 03/08 03/08 03/08 03/08 03/08 1347 1316 1235 1201 1126 Coagulation INR (0.8 - 1.2) 1.1 PTT (Margarita) (25.0 - 39.5 Seconds) 28.9 PT Patient/Control Mix (9.3 - 12.9 SECONDS) 12.6 Activated Coag Time (74 - 137 SEC) 152 H 585 H 682 H 531 H 03/08 03/08 1106 1035 Coagulation Activated Coag Time (74 - 137 SEC) 428 H 136 Laboratory Tests 03/08 1347 Hematology WBC (4.5 - 11.0 x10 3/uL) 15.3 H RBC (3.54 - 5.02 x10 6/uL) 3.51 L Hgb (11.0 - 15.0 g/dL) 11.2 Hct (33.0 - 45.0 %) 34.1 MCV (81.0 - 99.0 fL) 97.2 MCH (27.0 - 33.0 pg) 31.9 MCHC (33.0 - 37.0 g/dL) 32.8 L RDW (11.5 - 14.5 %) 14.5 Plt Count (150 - 400 x10 3/uL) 186 MPV (7.0 - 9.0 fL) 8.9 Neut % (Auto) (56.0 - 77.0 %) 82.7 H Lymph % (Auto) (14.0 - 32.0 %) 13.0 L Riley % (Auto) (4.8 - 9.0 %) 2.6 L Eos % (Auto) (0.3 - 3.7 %) 0.7 Baso % (Auto) (0.0 - 2.0 %) 0.2 Neut # (Auto) (2.0 - 7.6 x10 3/uL) 12.62 H Lymph # (Auto) (1.0 - 3.8 x10 3/uL) 1.98 Riley # (Auto) (0.1 - 0.8 x10 3/uL) 0.40 Eos # (Auto) (0.0 - 0.2 x10 3/uL) 0.10 Baso # (Auto) (0.0 - 0.2 x10 3/uL) 0.03 Abs Immat Gran (auto) (0.00 - 0.03 x10 3/uL) 0.12 H Immature Gran % (0.0 - 2.0 %) 0.8 Nucleated RBC % (0 - 0 %) 0.0 Nucleated RBCs # (Man) (0.0 - 0.1 x10 3/uL) 0.00 Laboratory Tests 03/08 1347 Chemistry Magnesium (1.6 - 2.6 mg/dL) 2.83 H Radiology Data: Recent Impressions: RADIOLOGY - XR CHEST 1 V 03/08 1433 Report Impression - Status: SIGNED Entered: 03/08/2023 1506 IMPRESSION: Endotracheal tube in good position. Right IJ Huron-Stef catheter probably in the proximal main pulmonary artery. Minimal central vascular congestion. Impression By: [email or web address] - Gauri Meeks M.D. 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 MR: Mild, medical therapy 3. Hypertension: Blood pressure meds on hold. Resume once blood pressure stabilized at 1332 RPT #:[id number] END OF REPORT [facility] 2023-03-08 14:45:00 [facility] ([facility]) Critical Care Consult Note REPORT#:[id number] REPORT STATUS: Signed REPORT INITIALIZATION DATE:03/08/23 TIME: 1445 PATIENT: SALINA LAFLEUR UNIT #: [id number] ROOM/BED: [place] [address] : 54 AGE: 67 SEX: F ATTEND: Svitlana Lui MD ADM AUTHOR: Franck Hsieh MD REPT SERVICE DT/TIME: 03/08/23 6345 * ALL edits or amendments must be made on the electronic/computer document * History of Present Illness HPI Requesting clinician: Dr Lui Reason for consult: Critical care management Chief complaint: AVR (25 Inspiris) STEPHEN PCP: PCP: Vijay Woodruff MD HPI: 67-year-old female with a past medical history of hypertension, hyperlipidemia, aortic valve stenosis, mitral regurgitation who was admitted for aortic and mitral valve replacement. Patient preoperatively was found to have severe aortic stenosis and severe mitral regurgitation. Intraoperatively today her mitral valve appears okay. With no significant regurgitation. Patient underwent AVR. Intraoperatively patient received 1.5 L crystalloid, 960 Cell Saver. Urine output was 900 cc. EBL was 300. Patient arrived to ICU intubated on mechanical ventilation. She was on 2 of epinephrine and 2 of Levophed. [address] History - Adult longitudinal Additional medical history: 1. HTN 2. COPD 3. Severe 4. Severe MR Additional surgical history: 1. LHC - no CAD 2. JAMES - severe MR, Severe 3. Hip surgery Alcohol use: Denies EtOH use Drug use: Denies recreational drugs Smoking status for patients 13 years old or older: Never Smoker Allergies: Coded Allergies: sulfamethoxazole (From BACTRIM) (Mild, HIVES 01/20/23) trimethoprim (From BACTRIM) (Mild, HIVES 01/20/23) Review of Systems ROS Unable to obtain due to: Patient intubated on ventilatory support Objective Physical Exam VS/I O: Last Documented: Result Date Time Pulse Ox 100 03/08 623 B/P 128/67 03/08 623 Temp 36.0 03/08 623 Pulse 65 03/08 623 Resp 16 03/08 623 24 hour I O ending at 0700: 03/08 0700 03/07 1900 Intake Total Output Total Balance Patient 81.818 kg Weight Weight Stated/Reported Measurement Method Patient Weight and BMI Weight (kg): 81.818 BMI: 31.0 Medications: Active Meds + DC'd Last 24 Hrs Ipratropium Pacolet (ATROVENT) 500 MCG RTQ2H PRN PRN INH Cyanocobalamin (Vitamin B-12 500 mcg tab) 500 MCG DAILY PO Ferrous Sulfate (FERROUS SULFATE) 325 MG DAILY PO Bisacodyl (DULCOLAX) 10 MG ONCE PRN RECTAL Magnesium Hydroxide (MILK OF MAGNESIA) 30 ML ONCE PRN PO Atorvastatin Calcium (LIPITOR) 40 MG 2100 PO Polyethylene Glycol (MIRALAX) 17 GM DAILY PO Verapamil HCl (ISOPTIN) 16.6 MG .Q24H ONE IV (CKD) Heparin Sodium (Porcine) (HEPARIN SODIUM) 1,660 UNIT Sodium Bicarbonate (SODIUM BICARBONATE) 0.7 ML Nitroglycerin/Dextrose (NITROGLYCERIN 50MG/D5W 250ML) 8.3 MG Lactated Ringer's (LACTATED RINGERS) 949.5 ML Vancomycin HCl (VANCOMYCIN HCL) 1,000 MG Q12H IV Sodium Chloride (SODIUM CHLORIDE 0.9%) 250 ML Amiodarone HCl (CORDARONE) 200 MG TID PO Docusate Sodium (COLACE) 100 MG BID PO Metoprolol Tartrate (LOPRESSOR) 12.5 MG Q12HR PO Sennosides (Senna Lax 8.6 MG TABLET) 17.2 MG BEDTIME PO Aspirin (ASPIRIN) 81 MG DAILY PO Ipratropium Pacolet (ATROVENT) 500 MCG RTQ4H INH Mupirocin (BACTROBAN 2% 22 GM OINTMENT) 1 APPLIC BID NASAL Acetaminophen (TYLENOL) 650 MG Q4H PRN PRN PO Acetaminophen (TYLENOL) 650 MG Q4H PRN PRN RECTAL Albumin Human (ALBUMINAR 25%) 25 GM ASDIR PRN IV Calcium Chloride (CALCIUM CHLORIDE) 1 GM ASDIR PRN IV Cefazolin Sodium (KEFZOL OR ANCEF) 6 GM ONCE ONE IV (CKD) Sodium Chloride (SODIUM CHLORIDE 0.9%) 500 ML Dextrose/Water (DEXTROSE 10% IN WATER) 125 ML ASDIR PRN IV (CKD) Dextrose/Water (DEXTROSE 10% IN WATER) 250 ML ASDIR PRN IV (CKD) Epinephrine (ADRENALIN CHLORIDE) 4 MG ASDIR IV Dextrose/Water (DEXTROSE 5% WATER) 246 ML Glucagon (GLUCAGON) 1 MG ASDIR PRN IM Insulin Human Regular (HumuLIN R) 100 UNIT ASDIR IV (CKD) Sodium Chloride (SODIUM CHLORIDE 0.9%) 99 ML Magnesium Sulfate (MAGNESIUM SULFATE 4GM/SWFI 100ML) 100 ML ASDIR PRN IV Magnesium Sulfate (MAGNESIUM SULFATE 2GM/SWFI 50ML) 50 ML ASDIR PRN IV Magnesium Sulfate/Dextrose (MAGNESIUM SULFATE 1GM/D5W 100ML) 100 ML ASDIR PRN IV Nitroglycerin/Dextrose (NITROGLYCERIN 50,000MCG/D5W 250ML) 250 ML ASDIR IV Norepinephrine Bitartrate (NOREPINEPHRINE 8 MG/NS 250 ML) 250 ML TITRATE IV Ondansetron HCl (ZOFRAN) 4 MG Q6H PRN PRN IV Oxycodone HCl (ROXICODONE) 5 MG Q4H PRN PRN PO Oxycodone HCl (ROXICODONE) 10 MG Q4H PRN PRN PO Potassium Chloride (KCL 20MEQ/SWFI 100ML) 100 ML ASDIR PRN IV Sodium Bicarbonate (SODIUM BICARBONATE) 50 MEQ ASDIR PRN IV Sodium Chloride (SODIUM CHLORIDE 0.9%) 1,000 ML .Q20H IV Sodium Chloride (SODIUM CHLORIDE 0.9%) 250 ML Q24H IV Cefazolin Sodium (KEFZOL OR ANCEF) 0 .STK-MED ONE .ROUTE (DC) Vancomycin HCl (VANCOMYCIN HCL) 0 .STK-MED ONE .ROUTE (DC) Epinephrine HCl (EPINEPHrine 4 mg/D5W 250 mL) 250 ML .STK-MED ONE IV (DC ) Insulin Human Regular (HumuLIN R 100 UNITS/NS 100ML) 100 ML .STK-MED ONE IV (DC) Norepinephrine Bitartrate (NOREPINEPHRINE 8 MG/NS 250 ML) 250 ML .STK-MED ONE IV (DC) Aminocaproic Acid (AMICAR) 0 .STK-MED ONE .ROUTE (DC) Milrinone Lactate/Dextrose (MILRINONE 20MG/D5W 100ML) 100 ML .STK-MED ONE IV (DC) Nitroglycerin/Dextrose (NITROGLYCERIN 50,000MCG/D5W 250ML) 250 ML .STK-MED ONE IV (DC) Protamine Sulfate (PROTAMINE SULFATE) 0 .STK-MED ONE IV (DC) Ropivacaine (NAROPIN 0.5% 150 MG/30mL) 0 .STK-MED ONE .ROUTE (DC) Magnesium Sulfate (MAGNESIUM SULFATE) 0 .STK-MED ONE .ROUTE (DC) Aminocaproic Acid (AMICAR) 0 .STK-MED ONE .ROUTE (DC) Dexamethasone Sodium Phosphate (DECADRON) 0 .STK-MED ONE .ROUTE (DC) Etomidate (AMIDATE) 0 .STK-MED ONE IV (DC) Fentanyl Citrate (SUBLIMAZE) 0 .STK-MED ONE IV (DC) Heparin Sodium (HEPARIN SODIUM) 0 .STK-MED ONE .ROUTE (DC) Lidocaine HCl (XYLOCAINE) 0 .STK-MED ONE .ROUTE (DC) Ondansetron HCl (ZOFRAN) 0 .STK-MED ONE .ROUTE (DC) Rocuronium Pacolet (ZEMURON) 0 .STK-MED ONE IV (DC) Midazolam HCl (VERSED) 0 .STK-MED ONE .ROUTE (DC) Fentanyl Citrate (SUBLIMAZE) 0 .STK-MED ONE .ROUTE (DC) Heparin Sodium (HEPARIN SODIUM) 0 .STK-MED ONE .ROUTE (DC) Sodium Chloride (SODIUM CHLORIDE 0.9%) 100 ML .STK-MED ONE IV (DC) Albumin Human (ALBUMINAR-25%) 50 ML .STK-MED ONE IV (DC) Lidocaine HCl (XYLOCAINE IV) 0 .STK-MED ONE IV (DC) Magnesium Sulfate (MAGNESIUM SULFATE) 0 .STK-MED ONE IV (DC) Phenylephrine HCl (ALEX-SYNEPHRINE 10MG/ML AMP) 0 .STK-MED ONE .ROUTE (DC ) Sodium Bicarbonate (SODIUM BICARBONATE) 0 .STK-MED ONE IV (DC) Metoprolol Tartrate (LOPRESSOR) 6.25 MG PREOP ONCALL PO (DC) Acetaminophen (TYLENOL EXTRA STRENGTH) 0 .STK-MED ONE .ROUTE (DC) Gabapentin (NEURONTIN) 0 .STK-MED ONE .ROUTE (DC) Cefazolin Sodium (KEFZOL OR ANCEF) 2 GM PREOP ONCALL IV (DC) Sodium Chloride (SODIUM CHLORIDE) 20 ML ASDIR IV Acetaminophen (TYLENOL EXTRA STRENGTH) 1,000 MG PREOP ONCALL PO (DC) Gabapentin (NEURONTIN) 200 MG PREOP ONCALL PO (DC) Lactated Ringer's (LACTATED RINGERS) 1,000 ML PREOP ONCALL IV (DC) Lidocaine HCl (LIDOCAINE HCL/PF) 2 ML PREOP ONCALL LOCAL (DC) Lidocaine HCl (LIDOCAINE HCL/PF) 2 ML PREOP ONCALL LOCAL (DC) Sodium Chloride (SODIUM CHLORIDE 0.9%) 500 ML PREOP ONCALL IV (DC) Sodium Chloride (SODIUM CHLORIDE 0.9%) 500 ML PREOP ONCALL IV (DC) Sodium Chloride (SODIUM CHLORIDE 0.9%) 1,000 ML PREOP ONCALL IV (DC) Sodium Chloride (SODIUM CHLORIDE) 5 ML ASDIR PRN IV (DC) Sodium Chloride (SODIUM CHLORIDE) 10 ML ASDIR PRN IV (DC) Sodium Chloride (SODIUM CHLORIDE 0.9%) 250 ML ASDIR PRN IV (DC) Results Findings/Data: Laboratory Tests 03/08/23 1347: [Embedded Image Not Available] Laboratory Tests 03/08 03/08 03/08 03/08 1403 1326 1318 1233 Blood Gas Puncture Site Art Line O2 Saturation (90 - 100 %) 98.8 100.0 99.8 100.0 ABG pH (7.35 - 7.45) 7.331 L 7.286 *L 7.134 *L 7.449 ABG pCO2 (35.0 - 45 mmHg) 47.5 H 55.7 *H 41.9 39.6 ABG pO2 (80 - 100.0 mmHg) 133.4 H 410.5 *H 313.9 *H 432.2 *H ABG PO2/FiO2 Ratio (mm/Hg) 266.80 ABG HCO3 (22.0 - 26.0 MMOL/L) 25.2 26.5 H 14.1 *L 27.4 H ABG Total CO2 26.6 28.3 15.3 28.7 ABG Base Excess (-4.0 - 4.0 MMOL/L) -0.8 -0.8 -14.3 L 3.2 ABG Hematocrit (33.0 - 45.0 %) 35 32 L 32 L 28 L ABG Hemoglobin (11.0 - 15.0 G/DL) 11.9 10.8 L 10.8 L 9.6 L Benjamin Test N/A Sodium (134 - 147 mmol/L) 143 143 149 H 139 Potassium (3.4 - 5.0 mmol/L) 4.1 4.0 4.1 4.9 Chloride (100 - 108 mmol/L) 112 H 109 H 110 H 105 Ionized Calcium (1.12 - 1.32 MMOL/L) 1.34 H 1.30 1.25 1.52 H Lactic Acid (0.9 - 1.7 mmol/l) 0.8 L 0.8 L 0.6 L Temperature (F) 98 O2 Delivery Device Adult Vent Vent Mode AC Vent Rate (/MIN) 20 FiO2 (%) 50 Tidal Volume (ml) 380 PEEP (cmH2O) 5 03/08 03/08 03/08 03/08 1159 1124 1103 1032 Blood Gas O2 Saturation (90 - 100 %) 100.0 100.0 100.0 100.0 ABG pH (7.35 - 7.45) 7.433 7.436 7.364 7.368 ABG pCO2 (35.0 - 45 mmHg) 41.7 40.2 40.5 45.6 H ABG pO2 (80 - 100.0 mmHg) 401.9 *H 461.0 *H 492.2 *H 491.2 *H ABG HCO3 (22.0 - 26.0 MMOL/L) 27.9 H 27.1 H 23.1 26.2 H ABG Total CO2 29.1 28.3 24.3 27.6 ABG Base Excess (-4.0 - 4.0 MMOL/L) 3.2 2.6 -2.1 0.5 ABG Hematocrit (33.0 - 45.0 %) 29 L 29 L 32 L 37 ABG Hemoglobin (11.0 - 15.0 G/DL) 10.0 L 9.9 L 10.9 L 12.4 Sodium (134 - 147 mmol/L) 140 138 141 142 Potassium (3.4 - 5.0 mmol/L) 5.1 H 5.1 H 3.9 4.4 Chloride (100 - 108 mmol/L) 106 104 108 106 Ionized Calcium (1.12 - 1.32 MMOL/L) 1.17 1.08 L 1.20 1.26 Lactic Acid (0.9 - 1.7 mmol/l) < 0.3 L < 0.3 L < 0.3 L < 0.3 L Laboratory Tests 03/08 03/08 03/08 03/08 03/08 1403 1347 1326 1318 1233 Chemistry Sodium (134 - 147 mEq/L) 143 Potassium (3.4 - 5.0 mEq/L) 4.2 Chloride (100 - 108 mEq/L) 111 H Carbon Dioxide (21 - 33 mEq/l) 27 Anion Gap (0 - 20) 9 BUN (7 - 25 mg/dL) 14 Creatinine (0.6 - 1.3 mg/dL) 0.6 POC Creatinine (0.6 - 1.0 mg/dL) 0.5 L 0.5 L 0.5 L 0.5 L Glomerular Filtr Rate (80 - 90) 97.7 H Glucose (77 - 141 mg/dL) 120 POC Glucose (mg/dL) (70 - 110 MG/DL) 118 H 111 H 120 H 114 H Calcium (8.0 - 10.5 mg/dL) 8.4 Magnesium (1.6 - 2.6 mg/dL) 2.83 H 03/08 03/08 03/08 03/08 1159 1124 1103 1032 Chemistry POC Creatinine (0.6 - 1.0 mg/dL) 0.5 L 0.4 L 0.4 L 0.4 L POC Glucose (mg/dL) (70 - 110 MG/DL) 116 H 109 101 92 Laboratory Tests 03/08 03/08 03/08 03/08 03/08 1347 1316 1235 1201 1126 Coagulation INR (0.8 - 1.2) 1.1 PTT (Margarita) (25.0 - 39.5 Seconds) 28.9 PT Patient/Control Mix (9.3 - 12.9 SECONDS) 12.6 Activated Coag Time (74 - 137 SEC) 152 H 585 H 682 H 531 H 03/08 03/08 1106 1035 Coagulation Activated Coag Time (74 - 137 SEC) 428 H 136 Laboratory Tests 03/08 1347 Hematology WBC (4.5 - 11.0 x10 3/uL) 15.3 H RBC (3.54 - 5.02 x10 6/uL) 3.51 L Hgb (11.0 - 15.0 g/dL) 11.2 Hct (33.0 - 45.0 %) 34.1 MCV (81.0 - 99.0 fL) 97.2 MCH (27.0 - 33.0 pg) 31.9 MCHC (33.0 - 37.0 g/dL) 32.8 L RDW (11.5 - 14.5 %) 14.5 Plt Count (150 - 400 x10 3/uL) 186 MPV (7.0 - 9.0 fL) 8.9 Neut % (Auto) (56.0 - 77.0 %) 82.7 H Lymph % (Auto) (14.0 - 32.0 %) 13.0 L Riley % (Auto) (4.8 - 9.0 %) 2.6 L Eos % (Auto) (0.3 - 3.7 %) 0.7 Baso % (Auto) (0.0 - 2.0 %) 0.2 Neut # (Auto) (2.0 - 7.6 x10 3/uL) 12.62 H Lymph # (Auto) (1.0 - 3.8 x10 3/uL) 1.98 Riley # (Auto) (0.1 - 0.8 x10 3/uL) 0.40 Eos # (Auto) (0.0 - 0.2 x10 3/uL) 0.10 Baso # (Auto) (0.0 - 0.2 x10 3/uL) 0.03 Abs Immat Gran (auto) (0.00 - 0.03 x10 3/uL) 0.12 H Immature Gran % (0.0 - 2.0 %) 0.8 Nucleated RBC % (0 - 0 %) 0.0 Nucleated RBCs # (Man) (0.0 - 0.1 x10 3/uL) 0.00 Microbiology: 03/08 115 TISSUE: Acid Fast Bacilli Smear - RECD 03/08 1154 TISSUE: Acid Fast Bacilli Culture - RECD 03/08 1154 TISSUE: Fungal Smear - RECD 03/08 1154 TISSUE: Fungal Culture - RECD 03/08 1154 OTHER TISS: Tissue Culture - WKST 03/08 115 OTHER TISS: Anaerobic Culture - WKST 03/08 115 OTHER TISS: Gram Stain - WKST Radiology data: Recent Impressions: RADIOLOGY - XR CHEST 1 V 03/08 1433 Report Impression - Status: SIGNED Entered: 03/08/2023 4536 IMPRESSION: Endotracheal tube in good position. Right IJ Huron-Stef catheter probably in the proximal main pulmonary artery. Minimal central vascular congestion. Impression By: [id number] - Gauri Meeks M.D. Free Text Obj Notes Free Text Obj Notes: Elderly lady intubated on ventilatory support Pupil equal reactive to light Neck supple Chest with sternotomy dressing, [address] Heart S1-S2 Abdomen soft, could not appreciate bowel sound Extremities no edema TICK SEWER sedated Diagnosis, Assessment Plan Free text DxA P: Severe s/p AVR Postoperative respiratory insufficiency after cardiac surgery Hypotension Leukocytosis COPD Postoperative pain Patient underwent AVR today, her mitral valve appeared okay. EF was normal. On arrival to ICU patient was on a low-dose of epinephrine and Levophed, we will wean off to keep MAP at 65. Patient was still under sedation, she was on assist control ventilation, will wean to extubate. Will monitor chest tube output. Monitor urine output. Monitor kidney function, replace electrolyte as needed. Pain management. Bronchodilator as needed. Aspiration precaution. Monitor H H , transfuse as needed. GI and DVT prophylaxis. Patient will need incentive spirometry after extubation. Case was discussed at bedside with the nursing staff and respiratory therapist. Critical care time spent in excess of 42 minutes, excluding procedure time at 1747 RPT #:[id number] END OF REPORT [facility] 2023-03-08 14:15:00 [id number] [place] [address] PATIENT NAME: SALINA LAFLEUR ADMIT DATE: 03/08/23 ACCOUNT NO: [id number] ROOM NO: G.2204 AGE: 67 REPORT TYPE: eELECTROCARDIOGRAM REPORT SEX: F ADMITTING PHYSICIAN:Svitlana Lui MD ATTENDING PHYSICIAN:Svitlana Lui MD Order: [id number] Test Reason : SP AVR Test Date/Time Stamp: WedMar 08 2023 14:15:20 Blood Pressure : / mmHG Vent. Rate : 058 BPM Atrial Rate : 058 BPM P-R Int : 194 ms QRS Dur : 106 ms QT Int : 410 ms P-R-T Axes : 071 065 059 degrees QTc Int : 402 ms Sinus bradycardia Otherwise normal ECG When compared with ECG of 04-MAR-2023 12:15, Significant changes have occurred Confirmed by MD FRANCISCO JAVIER, KATLYN ([id number]) on 03/10/2023 7:02:26 AM Referred By: Svitlana Lui Confirmed by:KATLYN MCINTYRE MD at 0702 PATIENT NAME: SALINA LAFLEUR [facility] 2023-03-08 13:22:00 [id number] [place] [address] PATIENT NAME: SALINA LAFLEUR ADMIT DATE: 03/08/23 ACCOUNT NO: [id number] ROOM NO: 2204 AGE: 67 REPORT TYPE: OPERATIVE REPORT SEX: F ADMITTING PHYSICIAN:Svitlana Lui MD ATTENDING PHYSICIAN:Svitlana Lui MD OPERATION DATE: 03/08/2023 PREOPERATIVE DIAGNOSES: 1. Aortic stenosis. 2. Fibroelastoma aortic valve. POSTOPERATIVE DIAGNOSES: 1. Aortic stenosis. 2. Fibroelastoma aortic valve. PROCEDURES: 1. Aortic valve replacement (25 Inspiris valve). 2. Amputation of left atrial appendage. SURGEON: Amy Lui M.D. MASTER CONTROL TECHNICIAN: Lila Ruth. ANESTHESIOLOGIST: Dr. Cancino. ANESTHESIA: General endotracheal anesthesia. ESTIMATED BLOOD LOSS: 100 mL INDICATIONS: Mr. 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 Preoperative echocardiogram did show moderate to severe aortic regurgitation. After due preop counseling, she was brought to the operating room today for aortic valve replacement and possible mitral valve replacement and amputation of left atrial appendage. FINDINGS: 1. Osteoporotic sternum. 2. Normal pericardium without any intrapericardial adhesions and minimal intrapericardial fluid. 3. Intraoperative JAMES showed trivial to mild mitral regurgitation, severe aortic stenosis and a fibroelastoma on the noncoronary cusp. We did get a pressure up to 150 mmHg to see if MR increases, but it remained mild to trivial hence I decided not to intervene on the mitral valve. 4. Fibroelastoma on the noncoronary cusps. 5. Calcified tricuspid valve with calcification extending onto aortic annulus. 6. Following decalcification, the annulus was sized to 25 Inspiris valve. 7. Left atrial appendage was amputated 0.5% from the base. This was then repaired with two layers of running pledgeted 4-0 Prolene suture. PATIENT NAME: SALINA LAFLEUR 8. JAMES at the end of case did not show any evidence of paravalvular leak. DESCRIPTION OF PROCEDURE: Mrs. Lafleur was identified in the preoperative holding area and brought to the OR and placed supine on the operating table. After induction of general endotracheal anesthesia, Garcia catheter, radial arterial line, antibiotics were placed. The patient's anterior torso and both lower extremities were prepped and draped in standard surgical fashion. Median sternotomy was performed. The patient was heparinized. Pericardium was opened longitudinally. Pericardial well was created. Cardiopulmonary bypass was instituted using ascending aorta and 3-stage cannula in the right atrium. The patient was cooled to 34 degrees centigrade. LV vent was placed via the right superior pulmonary vein. Crossclamp was applied and the heart was arrested with 1.5 antegrade and retrograde cold blood cardioplegia. Cardioplegia was repeated at interval of 10 minutes all throughout duration of crossclamp. We began by amputating left atrial appendage half a cm from the base. This was then repaired with two layers of running pledgeted 4-0 Prolene suture. Next, attention was shifted to the aortic valve. Transverse aortotomy was performed 2 fingerbreadths distal to sinotubular junction. This was extended in hockey stick fashion onto the noncoronary sinus. Three pledgeted 4-0 Prolene suture placed on superior and inferior lip of the aortotomy so as to assist with exposure of the aortic valve. The aortic valve was inspected with the above-mentioned finding. Aortic cusps were excised. Careful decalcification of the aortic annulus was performed. LV was irrigated with a liter of cold saline. The annulus was sized to 25 Inspiris valve. Next, circumferential 3-0 Ethibond sutures were placed in the aortic annulus, size 25 Inspiris valve was brought into surgical field. The sutures sequentially passed through the sewing ring. The valve was lowered down to the annulus after confirming proper seating sutures were tied. Rewarming was commenced at this stage. The aortotomy was closed in 2 layers using running 4-0 Prolene suture. Careful de-aeration was performed and the crossclamp was released. One ventricular wire was placed. A 28-Irish chest tube was placed in the mediastinum. Once the patient was at temperature, de-airing was repeated and the patient was weaned off cardiopulmonary bypass with minimal inotropic support. Heparin was reversed with protamine. Decannulation was uneventful. After confirming hemostasis, the chest was closed in layers using stainless steel wires for the sternum, #1 Vicryl for the fascia, 2-0 Vicryl subcutaneous for the skin. The patient was transferred to intensive care unit, intubated in stable condition. Dictated By: Amy Lui MD Date Dictated: 03/08/2023 13:22:20 Date Transcribed: 03/08/2023 15:11:12 /BILLY Receipt ID: [id number] Authenticated by Svitlana Lui MD On 03/10/2023 08:13:14 AM at 0813 PATIENT NAME: SALINA LAFLEUR [facility] 2023-03-08 13:13:00 [facility] Brief Op Note REPORT#:[id number] REPORT STATUS: Signed REPORT INITIALIZATION DATE:03/08/23 TIME: 1312 PATIENT: SALINA LAFLEUR UNIT #: [id number] ROOM/BED: [place] [address] : 54 AGE: 67 SEX: F ATTEND: Svitlana Lui MD ADM AUTHOR: Svitlana Lui MD REPT SERVICE DT/TIME: 03/08/23 1313 * ALL edits or amendments must be made on the electronic/computer document * Op/Inv Proc Note - Brief Pre-procedure diagnosis: Fibroelastoma aortic valve Post-procedure diagnosis: same as pre procedure dx Procedures performed: AVR (25 Inspiris) STEPHEN Primary Surgeon: Margareth Exterminator(s): Lila Ruth Findings: Fibroelastoma NCC Complications: none Estimated blood loss in ml's: 100 cc Specimens removed/altered: Aortic cusp at 1317 RPT #:[id number] END OF REPORT [facility] 2023-03-08 06:54:00 [facility] ([facility]) History Physical - Adult REPORT#:[id number] REPORT STATUS: Signed REPORT INITIALIZATION DATE:03/08/23 TIME: 653 PATIENT: SALINA LAFLEUR UNIT #: [id number] ROOM/BED: [place] [address] : 54 AGE: 67 SEX: F ATTEND: Svitlana Lui MD ADM AUTHOR: Tamara Benavides Physic REPT SERVICE DT/TIME: 03/08/23653 * ALL edits or amendments must be made on the electronic/computer document * History of Present Illness HPI HPI: This Is a 67-year-old female with a past medical history of hypertension, hyperlipidemia, aortic valve stenosis, mitral regurgitation who presents today for evaluation for aortic valve replacement and mitral valve replacement.She reports she has increased shortness of breath for the past several months. She underwent [facility] with echocardiogram showing severe aortic valve stenosis with an HAILE 0.9 cm, peak gradient 37 mmHg, mean 60 mmHg. She underwent JAMES showing severe mitral regurgitation with systolic reversal pulmonary vein, with thickening of the aortic valve with masslike appearance. She underwent left heart catheterization at [facility] showing no significant coronary artery disease.The patient was seen several months ago initially and was found to have a large ovarian cyst which was removed via hysterectomy. She is now admitted for Aortic valve and mitral valve replacement. History Additional medical history: 1. HTN 2. COPD 3. Severe 4. Severe MR Additional surgical history: 1. LHC - no CAD 2. JAMES - severe MR, Severe 3. Hip surgery Alcohol use: Denies EtOH use Drug use: Denies recreational drugs Smoking status for patients 13 years old or older: Never Smoker Medication/Allergy-Vaccine Hx Allergies: Coded Allergies: sulfamethoxazole (From BACTRIM) (Mild, HIVES 01/20/23) trimethoprim (From BACTRIM) (Mild, HIVES 01/20/23) Review of Systems ROS comments: Constitutional: Negative for fever, chills, weight loss Skin: Negative for rash, negative for swelling negative for any laceration HEENT: Denies hearing loss denies any ear ringing denies any earache denies any sore throat denies any throat pain Respiratory: Positive for dyspnea on exertion Cardiac: Denies chest pain, denies palpitations denies orthopnea GI: Denies constipation denies diarrhea : Denies hematuria denies dysuria denies flank pain Musculoskeletal: Denies any joint pain denies any joint swelling denies any myalgia Hematologic: Denies any easy bruising, denies any bleeding Endocrine: denies any night sweats, denies polyuria polydipsia Neurologic: Denies any lightheaded denies any headache denies any confusion denies any dizziness Physical Exam VS/I O Date Time Temp Pulse Resp B/P B/P Pulse O2 O2 Flow FiO2 Mean Ox Delivery Rate 03/08 0623 96.8 65 16 128/67 100 24 hour I O ending at 0700: 03/08 0700 03/07 1900 Intake Total Output Total Balance Patient 81.818 kg Weight Weight Stated/Reported Measurement Method PATIENT WEIGHT: Weight (lb): 180 Weight (oz): 6.04 Weight (kg): 81.818 General: well nourished, well groomed, no acute distress. HEENT: conjunctiva clear, extraocular movement intact, PERRLA, Neck: no, JVD, trachea midline, no, lymphadenopathy, neck supple, normal ROM. Respiratory: Clear to auscultation, no distress. Cardiovascular: regular rate and rhythm, 3/6 systolic ejection murmur Abdomen: Soft, non tender. No rebound. No guarding Extremities: dry, moves all. Musculoskeletal: Full range of motion, no CVA tenderness, no muscle spasm Skin: warm, dry, no, lesions, rash. Neurologic: Alert and oriented x3. Psychiatric: affect and demeanor normal Diagnosis, Assessment Plan Free Text DxA P Notes Free Text DxA P Notes: This Is a 67-year-old female with a past medical history of hypertension, hyperlipidemia, aortic valve stenosis, mitral regurgitation who presents today for evaluation for aortic valve replacement and mitral valve replacement.She reports she has increased shortness of breath for the past several months. She underwent full work[facility]up [facility] with echocardiogram showing severe aortic valve stenosis with an HAILE 0.9 cm, peak gradient 37 mmHg, mean 60 mmHg. She underwent JAMES showing severe mitral regurgitation with systolic reversal pulmonary vein, with thickening of the aortic valve with masslike appearance. She underwent left heart catheterization at [facility] showing no significant coronary artery disease.The patient was seen several months ago initially and was found to have a large ovarian cyst which was removed via hysterectomy. She is now admitted for Aortic valve and mitral valve replacement. Assessment/plan 1. Hypertension 2. Hyperlipidemia 3. Aortic valve stenosis Patient is admitted for aortic valve replacement and mitral valve replacement. This procedure was discussed with the patient by Dr. Lui. The risk of the operation including , bleeding, infection, heart attack, stroke, prolonged ICU stay, renal failure, dialysis, need for long-term rehabilitation, need for permanent pacemaker etc. was discussed with the patient and patient's family. Their questions were answered and the patient agreed to proceed with surgery at 1439 RPT #:[id number] END OF REPORT [facility] 2023-03-04 17:02:00 [id number] [place] [address] PATIENT NAME: SALINA LAFLEUR ADMIT DATE: 03/08/23 ACCOUNT NO: [id number] ROOM NO: [facility] AGE: 67 REPORT TYPE: PULMONARY FUNCTION REPORT SEX: F ADMITTING PHYSICIAN:Svitlana Lui MD ATTENDING PHYSICIAN:Svitlana Lui MD STUDY DATE: 03/04/2023 FULL PULMONARY FUNCTION TEST INTERPRETATION SPIROMETRY: FVC is 107% predicted. FEV1 is 89% of predicted. Response to bronchodilator up to 13%. Ratio is 63. Total lung capacity 97%. Diffusion capacity 90%. FULL PULMONARY FUNCTION TEST: Obstructive impairment consistent with asthma/mild chronic bronchitis. Dictated By: Bernardo Pacheco MD Date Dictated: 03/04/2023 17:02:49 Date Transcribed: 03/04/2023 19:05:48 /LE Receipt ID: [id number] Authenticated by BERNARDO PACHECO MD On 03/11/2023 11:41:42 AM at 1141 PATIENT NAME: SALINA LAFLEUR [facility] 2023-03-04 12:15:00 [id number] [place] [address] PATIENT NAME: SALINA LAFLEUR ADMIT DATE: ACCOUNT NO: [id number] ROOM NO: AGE: 67 REPORT TYPE: eELECTROCARDIOGRAM REPORT SEX: F ADMITTING PHYSICIAN:Svitlana Lui MD ATTENDING PHYSICIAN:Svitlana Lui MD Order: [id number] Test Reason : PREOP Test Date/Time Stamp: WedMar 04 2023 12:15:43 Blood Pressure : / mmHG Vent. Rate : 058 BPM Atrial Rate : 113 BPM P-R Int : 000 ms QRS Dur : 102 ms QT Int : 394 ms P-R-T Axes : 000 061 043 degrees QTc Int : 386 ms Sinus rhythm Abnormal ECG When compared with ECG of 19-JAN-2023 12:52, Significant changes have occurred Confirmed by IBIS CARTWRIGHT MD ([id number]) on 03/04/2023 2:20:46 PM Referred By: Svitlana Lui Confirmed by:IBIS CARTWRIGHT MD at 1420 PATIENT NAME: SALINA LAFLEUR [facility] 2023-02-11 18:27:00 [facility] ([facility]) Discharge Summary REPORT#:[id number] REPORT STATUS: Signed REPORT INITIALIZATION DATE:02/11/23 TIME: 1826 PATIENT: SALINA LAFLEUR UNIT #: [id number] ROOM/BED: [place] [address] : 54 AGE: 67 SEX: F ATTEND: Stef Moore MD ADM AUTHOR: Stef Moore MD REPT SERVICE DT/TIME: 02/11/231826 * ALL edits or amendments must be made on the electronic/computer document * PCP PCP PCP: PCP: Vijay Woodruff MD Discharge to: home General Information Date of admission: Observation Start Date: Date of admission: 01/19/23 Discharge date: 01/22/23 Admission diagnosis: 1. Altered mental status 2. UTI ESBL 3. Recent bacteremia 4. Hypernatremia, hyperchloremia 5. Anemia 6. Elevated alkaline phosphate and CK 7. History of hypertension currently hypotensive 8. Dyslipidemia 9. Schizophrenia 10. Syncope 11. 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 I12.9 HYPERTENSIVE CHRONIC KIDNEY DISEASE W STG 1-4/UNSP CHR KDNY J44.9 CHRONIC OBSTRUCTIVE PULMONARY DISEASE, UNSPECIFIED K59.00 CONSTIPATION, UNSPECIFIED D64.9 ANEMIA, UNSPECIFIED E78.00 PURE HYPERCHOLESTEROLEMIA, UNSPECIFIED E87.8 OTH DISORDERS OF ELECTROLYTE AND FLUID BALANCE, NEC N18.1 CHRONIC KIDNEY DISEASE, STAGE 1 Z96.651 PRESENCE OF RIGHT ARTIFICIAL KNEE JOINT F20.9 SCHIZOPHRENIA, UNSPECIFIED F32.A DEPRESSION, UNSPECIFIED K80.20 CALCULUS OF GALLBLADDER W/O CHOLECYSTITIS W/O OBSTRUCTION Hospital course: 75-year-old male with past medical history of hypertension, dyslipidemia, dementia, schizophrenia, syncope, Chronic kidney disease, recurrent UTI with multidrug-resistant bacteria, bacteremia, presented to the emergency room via EMS from skilled care nursing facility with altered mental status. Patient was awake but unable to answer questions this history of present illness not fully completed. The patient was admitted for further evaluation and treatment. Neurosurgery consult was placed for the evaluation of chronic subdural hematoma. 01/20 Stable vital signs Ultrasound of the pelvis. Impression: Large complex cystic mass with apparent internal vascularity concerning for a cystic neoplasm. Given its size, this is inadequately assessed on ultrasound exam, MR imaging with and without IV contrast is recommended for further assessment. The uterus and ovaries are obscured on this exam. Ovarian torsion cannot be excluded. Trace pelvic ascites. Held off any surgical intervention. The patient was on continuous telemetry, BP control, glycemic control, pain control, electrolyte control, DVT/GI prophylaxis. The patient was hemodynamically stable and was discharged home, follow-up with PCP. Discharge medications as per reconciliation list. Med Rec Med Rec Discharge meds: Continue taking these medications: LOSARTAN (COZAAR) 100 MG TAB 100 MILLIGRAM ORAL DAILY. ESCITALOPRAM (LEXAPRO) 10 MG TAB 10 MILLIGRAM ORAL DAILY. rOPINIRole (REQUIP) 0.25 MG TAB 2 MILLIGRAM ORAL THREE TIMES A DAY. BUDESONIDE/FORMOTEROL FUMARATE (SYMBICORT 80/4.5 MCG/ACT) 80 MCG-4.5 MCG/ ACTUATION INHALER 2 PUFF INHALATION TWICE DAILY. Start taking the following new medications: IPRATROPIUM/ALBUTEROL (DUONEB 0.5 MG-3/3ML) 0.5 MG-3 MG (2.5 MG BASE)/3 ML NEB 3 MILLILITERS NEB RT - EVERY 6 HOURS NEEDED. as needed for WHEEZING / SHORTNESS OF BREATH Days = 30 Qty = 340 No Refills FOLIC ACID (FOLIC ACID) 1 MG TAB 1 MILLIGRAM ORAL DAILY. Days = 30 Qty = 30 No Refills THIAMINE (VITAMIN B-1) 100 MG TAB 100 MILLIGRAM ORAL DAILY. Days = 30 Qty = 30 No Refills Objective VS/I O Last Documented: Result Date Time Pulse Ox 98 01/22 105 B/P 124/62 01/22 1053 B/P Mean 0.0 01/22 105 O2 Delivery Room air 01/22 105 Temp 36.3 01/22 1053 Pulse 75 01/22 1053 Resp 16 01/22 105 FiO2 96 01/20 1925 PATIENT WEIGHT: Weight (lb): 186 Weight (oz): 4.65 Weight (kg): 84.500 General appearance: alert, awake Neck: non-tender, no JVD Cardiovascular: regular rate rhythm Respiratory: decreased breath sounds, no distress, no tenderness, symmetric expansion Abdomen/GI: active bowel sounds, soft, non-tender, no guarding, no rebound, no distention, no mass/organomegaly, no pulsatile mass, no hernia, normal abdominal aorta Abdomen quadrants: LLQ normal bowel sounds, LUQ normal bowel sounds, RLQ normal bowel sounds, RUQ normal bowel sounds Extremities: moves all, no edema-all extremities, normal capillary refill, normal range of motion, normal sensory, normal motor function Neuro/TICK SEWER: disoriented, alert Skin: dry, ONYCHOMYCOSIS Psychiatry: unable to evaluate Treatments Procedures Lab: Laboratory Tests 01/20 114 Chemistry GGT (5 - 85 UNITS/L) 22 Laboratory Tests 01/20 114 Toxicology Ethyl Alcohol (<10 mg/dL) < 3.0 Imaging: ULTRASOUND - US PELVIS COMPLETE 01/20 1458 Report Impression - Status: SIGNED Entered: 01/20/2023 1514 Impression: Large complex cystic mass with apparent internal vascularity concerning for a cystic neoplasm. Given its size, this is inadequately assessed on ultrasound exam, MR imaging with and without IV contrast is recommended for further assessment. The uterus and ovaries are obscured on this exam. Ovarian torsion cannot be excluded. Trace pelvic ascites. Impression By: [email or web address] - Enrique Houston M.D. Discharge Instructions PCP PCP: PCP: Vijay Woodruff MD )( Discharge to: Home/Self Care Discharge Instructions Additional Discharge Routines: PCP Follow-Up, [employer] Follow-Up )( Diet: Regular )( Fluid restriction(mls/day): 1500 )( Weight monitoring: Weekly Follow-up Appointments PCP follow up: PCP: Vijay Woodruff MD PCP follow up timeframe: In 5 days Special instructions: CALL OFFICE FOR APPOINTMENT Consulting provider 1: Provider 1: Svitlana Lui MD Specialty: Thoracic Surgery Consult follow up timeframe: In 1-2 wks/OR ADVISED Consulting provider 2: Provider 2: Josi Wilkins MD Specialty: Obstetrics Gynecology Follow up timeframe: In 1-2 wks/OR ADVISED Special instructions: CALL OFFICE FOR APPOINTMENT Quality: Discharge Advanced Care Plan 65 or Older Discussed with: patient Current Medications Current medication review: I attest that the foregoing medication list in the medical record is true, accurate, and complete to the best of my knowledge. at 0900 RPT #:[id number] END OF REPORT [facility] 2023-01-29 12:03:00 [facility] ([facility]) Clinical Note REPORT#:[id number] REPORT STATUS: Signed REPORT INITIALIZATION DATE:01/29/23 TIME: 1203 PATIENT: SALINA LAFLEUR UNIT #: [id number] ROOM/BED: [place] [address] : 54 AGE: 67 SEX: F ATTEND: Josi Wilkins MD ADM AUTHOR: Janny Sandy NP REPT SERVICE DT/TIME: 01/29/23 1203 * ALL edits or amendments must be made on the electronic/computer document * Clinical Note Note: Pt awake/alert/oriented. No adverse events reported overnight. She is off all drips. Requesting breakfast. She is ok to transfer to medical surgical floor with telemetry. Pending TAVR. Cardiology to follow outside of ICU. Supportive care. FUll code. Wound vac to midline abdominal incision. BEVEL GEAR GENERATOR OPERATOR/ONC following. at 1204 RPT #:[id number] END OF REPORT [facility] 2023-01-29 11:40:00 [facility] ([facility]) BEVEL GEAR GENERATOR OPERATOR Oncology Progress Note REPORT#:[id number] REPORT STATUS: Signed REPORT INITIALIZATION DATE:01/29/23 TIME: 1140 PATIENT: SALINA LAFLEUR UNIT #: [id number] ROOM/BED: [place] [address] : 54 AGE: 67 SEX: F ATTEND: Josi Wilkins MD ADM AUTHOR: Josi Wilkins MD REPT SERVICE DT/TIME: 01/29/23 1140 * ALL edits or amendments must be made on the electronic/computer document * General Post-op: day 1 Subjective Chief complaint: no complaints Objective General VS/I O: Last Documented: Result Date Time Pulse Ox 100 01/29 1031 B/P 142/65 01/29 1031 B/P Mean 94 01/29 1031 Pulse 62 01/29 1031 Resp 25 01/29 1031 O2 Delivery Nasal cannula 01/29 0821 O2 Flow Rate 3 01/29 0821 Temp 98.6 01/29 0400 24 hour I O ending at 0700: 01/29 0700 01/28 1900 Intake Total 611.00 Output Total 900 350 Balance -900 261.00 Intake, IV 461.00 Intake, Oral 150 Output, Urine 900 350 Patient 85.6 kg Weight Weight Bed scale Measurement Method PATIENT WEIGHT: Weight (lb): 188 Weight (oz): 11.45 Weight (kg): 85.600 Medications: Active Meds + DC'd Last 24 Hrs Atorvastatin Calcium (LIPITOR) 10 MG BEDTIME PO Mupirocin (BACTROBAN 2% 22 GM OINTMENT) 1 APPLIC BID NASAL Irbesartan (AVAPRO) 150 MG DAILY PO (PEND) Fentanyl Citrate (SUBLIMAZE) 50 MCG Q2H PRN PRN IV Docusate Sodium (COLACE) 100 MG BID PO Folic Acid (FOLIC ACID) 1 MG DAILY PO Multivitamins (TAB-A-KOREY) 1 TAB DAILY PO Polyethylene Glycol (MIRALAX) 17 GM DAILY PO Thiamine HCl (THIAMINE HCL) 100 MG DAILY IV Budesonide (PULMICORT RESPULES) 0.5 MG RTBID INH Formoterol Fumarate (PERFOROMIST) 20 MCG RTBID NEB Gabapentin (NEURONTIN) 300 MG BEDTIME PO Acetaminophen (TYLENOL EXTRA STRENGTH) 1,000 MG Q6HR PO Ketorolac Tromethamine (TORADOL) 15 MG Q6HR IV Albuterol/Ipratropium (DUONEB) 3 ML RTQ6H PRN PRN NEB Docusate Sodium (COLACE) 100 MG Q12H PRN PRN PO Hydromorphone HCl (DILAUDID) 1 MG Q4H PRN PRN IV (DC) Lactated Ringer's (LACTATED RINGERS) 1,000 ML .Q8H20M IV (DC) Ondansetron HCl (ZOFRAN) 4 MG PACU ONCE ONE IV (DC) Ondansetron HCl (ZOFRAN) 4 MG Q4H PRN PRN IV Simethicone (MYLANTA GAS) 80 MG Q4H PRN PRN PO Tramadol HCl (ULTRAM) 50 MG Q6H PRN PRN PO Sodium Chloride (SODIUM CHLORIDE 0.9%) 500 ML .STK-MED ONE IV (DC) Labetalol HCl (LABETALOL HCL) 0 .STK-MED ONE IV (DC) Ketorolac Tromethamine (TORADOL 30 MG) 0 .STK-MED ONE .ROUTE (DC) Lidocaine HCl (PRE-ATTACHED LTA KIT) 0 .STK-MED ONE TOPICAL (DC) Glycopyrrolate (GLYCOPYRROLATE) 0 .STK-MED ONE .ROUTE (DC) Neostigmine Methylsulfate (PROSTIGMIN) 0 .STK-MED ONE .ROUTE (DC) Fentanyl Citrate (SUBLIMAZE) 0 .STK-MED ONE .ROUTE (DC) Rocuronium Pacolet (ZEMURON) 0 .STK-MED ONE IV (DC) Diphenhydramine HCl (BENADRYL) 12.5 MG PACU ONCE PRN IV (DC) Fentanyl Citrate (SUBLIMAZE) 100 MCG PACU Q10MIN PRN PRN IV (DC) Fentanyl Citrate (SUBLIMAZE) 50 MCG PACU Q10MIN PRN PRN IV (DC) Hydralazine HCl (APRESOLINE) 5 MG PACU Q10MIN PRN PRN IV (DC) Hydrocodone Bitart/Acetaminophen (NORCO 5/325) 1 TAB PACU ONCE PO (DC) Hydromorphone HCl (DILAUDID) 1 MG PACU Q10MIN PRN PRN IV (DC) Hydromorphone HCl (DILAUDID) 0.5 MG PACU Q5MIN PRN PRN IV (DC) Insulin Human Lispro (HUMALOG) 0 PACU ONCE PRN SUBQ (DC) Labetalol HCl (LABETALOL HCL) 5 MG PACU Q10MIN PRN PRN IV (DC) Meperidine HCl (MEPERIDINE HCL/PF) 12.5 MG PACU ONCE PRN IV (DC) Morphine Sulfate (morphine SULFATE) 2 MG PACU Q10MIN PRN PRN IV (DC) Ondansetron HCl (ZOFRAN) 4 MG PACU ONCE PRN IV (DC) Ropivacaine (NAROPIN 0.5% 150 MG/30mL) 150 MG ASDIR PRN LOCAL (DC) Tramadol HCl (ULTRAM) 50 MG PACU ONCE PO (DC) Cefazolin Sodium (KEFZOL OR ANCEF) 2 GM PREOP ONCALL IV (CKD) Celecoxib (CeleBREX) 200 MG PREOP ONCALL PO (DC) Sodium Chloride (SODIUM CHLORIDE) 20 ML ASDIR IV Acetaminophen (TYLENOL EXTRA STRENGTH) 1,000 MG PREOP ONCALL PO (DC) Gabapentin (NEURONTIN) 200 MG PREOP ONCALL PO (DC) Lactated Ringer's (LACTATED RINGERS) 1,000 ML PREOP ONCALL IV (DC) Lidocaine HCl (LIDOCAINE HCL/PF) 2 ML PREOP ONCALL LOCAL (DC) Lidocaine HCl (LIDOCAINE HCL/PF) 2 ML PREOP ONCALL LOCAL (DC) Sodium Chloride (SODIUM CHLORIDE 0.9%) 500 ML PREOP ONCALL IV (DC) Sodium Chloride (SODIUM CHLORIDE 0.9%) 500 ML PREOP ONCALL IV (DC) Sodium Chloride (SODIUM CHLORIDE 0.9%) 1,000 ML PREOP ONCALL IV (DC) Sodium Chloride (SODIUM CHLORIDE) 5 ML ASDIR PRN IV (DC) Sodium Chloride (SODIUM CHLORIDE) 10 ML ASDIR PRN IV (DC) Sodium Chloride (SODIUM CHLORIDE 0.9%) 250 ML ASDIR PRN IV (DC) Dietitian nutrition assessment The data set between the solid lines has been imported from the dietitian's assessment. BMI Calculated: 32.4 Nutrition related diagnosis: Nutrition diagnosis details: Nutrition problem: Nutrition etiology: Nutrition signs and symptoms: Nutrition prescription: Dietitian name: Assessment completed: Physical Exam General appearance: alert, awake, oriented Wound/incision: Location: prevena intact Abdomen: non-tender, soft Extremities: no edema Results Findings/Data: Laboratory Tests 01/29 0430 Chemistry Sodium (134 - 147 mEq/L) 139 Potassium (3.4 - 5.0 mEq/L) 4.6 Chloride (100 - 108 mEq/L) 105 Carbon Dioxide (21 - 33 mEq/l) 29 Anion Gap (0 - 20) 9 BUN (7 - 25 mg/dL) 14 Creatinine (0.6 - 1.3 mg/dL) 0.6 Glomerular Filtr Rate (80 - 90) 97.7 H Glucose (77 - 141 mg/dL) 135 Calcium (8.0 - 10.5 mg/dL) 9.2 Laboratory Tests 01/29 0430 Hematology WBC (4.5 - 11.0 x10 3/uL) 8.2 RBC (3.54 - 5.02 x10 6/uL) 3.40 L Hgb (11.0 - 15.0 g/dL) 10.7 L Hct (33.0 - 45.0 %) 33.0 MCV (81.0 - 99.0 fL) 97.1 MCH (27.0 - 33.0 pg) 31.5 MCHC (33.0 - 37.0 g/dL) 32.4 L RDW (11.5 - 14.5 %) 14.7 H Plt Count (150 - 400 x10 3/uL) 305 MPV (7.0 - 9.0 fL) 9.2 H Neut % (Auto) (56.0 - 77.0 %) 68.7 Lymph % (Auto) (14.0 - 32.0 %) 22.2 Riley % (Auto) (4.8 - 9.0 %) 8.8 Eos % (Auto) (0.3 - 3.7 %) 0.0 L Baso % (Auto) (0.0 - 2.0 %) 0.1 Neut # (Auto) (2.0 - 7.6 x10 3/uL) 5.61 Lymph # (Auto) (1.0 - 3.8 x10 3/uL) 1.82 Riley # (Auto) (0.1 - 0.8 x10 3/uL) 0.72 Eos # (Auto) (0.0 - 0.2 x10 3/uL) 0.00 Baso # (Auto) (0.0 - 0.2 x10 3/uL) 0.01 Abs Immat Gran (auto) (0.00 - 0.03 x10 3/uL) 0.02 Immature Gran % (0.0 - 2.0 %) 0.2 Nucleated RBC % (0 - 0 %) 0.0 Nucleated RBCs # (Man) (0.0 - 0.1 x10 3/uL) 0.00 Diagnosis, Assessment Plan Free Text A P: POD 1 s/p TAHBSO for benign large ovarian mass ICU overnight due to cardiac issues stable and doing well transfer out of icu can d/c home from my standpoint as pain controlled and has voided. however has not yet ambulated. will defer final discharge to consulting internal medicine at 1144 RPT #:[id number] END OF REPORT [facility] 2023-01-29 10:55:00 [phone] [place] [address] PATIENT NAME: SALINA LAFLEUR ADMIT DATE: 01/19/23 ACCOUNT NO: [id number] ROOM NO: [id number] AGE: 67 REPORT TYPE: 360 - QUERY RESPONSE DOCUMENT SEX: F ADMITTING PHYSICIAN:Stef Moore MD ATTENDING PHYSICIAN:Stef Moore MD Provider Query QUERY TEXT: Condition General 360MD Query related questions should be directed to: [facility] Coding Query Help-line Based on your medical judgment and the clinical indicators listed below, can you identify the underlying cause of the patient's Abdominal pain (Cholecystitis, UTI, Abdominal mass, Constipation, unspecified, or other more appropriate diagnosis) The patient's Clinical Indicators include: CHOLECYSTITIS-Pn note -01/22/23 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 Cardiothoracic Surgery Prog 01/22/2023 (6) Surgery for MVR/AVR on hold at this time until Abdominal mass is addressed. Cardiothoracic Surgery Prog 01/22/2023 (6) CONSTIPATION-Pn note -01/22/23 ecurrent UTI with multidrug-resistant bacteria , bacteremia, presented to the emergency room via EMS from skilled care nursing facility with altered mental status.P MULTIVITAMIN 1 TAB Multivitamins 10 mL Inj (Infuvite Adult) NS 1,000 mL oxyCODONE/APAP 7.5/325 TABLET Options provided: -- Respond - Create new note now -- Dismiss - Not applicable / Not valid -- Dismiss - Clinically unable to determine / Unknown -- Assign to another provider QUERY RESPONSE: cystadenocarcinoma Query created by: Luna Lombardo on 01/26/2023 1:57 AM at 1055 PATIENT NAME: SALINA LAFLEUR [facility] 2023-01-29 10:55:00 [id number] [place] [address] PATIENT NAME: SALINA LAFLEUR ADMIT DATE: 01/19/23 ACCOUNT NO: [id number] ROOM NO: [id number] AGE: 67 REPORT TYPE: 360 - QUERY RESPONSE DOCUMENT SEX: F ADMITTING PHYSICIAN:Stef Moore MD ATTENDING PHYSICIAN:Stef Moore MD Provider Query QUERY TEXT: Condition General 360MD Query related questions should be directed to: [facility] Coding Query Help-line Based on your medical judgment and clinical indicators below, please document the diagnosis for which you are evaluating, treating or monitoring for this patient (Metabolic encephalopathy, Toxic encephalopathy, Other encephalopathy, AMS, Abnormal findings, or other more appropriate diagnosis. The patient's Clinical Indicators include: Altered mental status Internal Medicine Prog. Note 01/20/2023 (5) UTI Internal Medicine Prog. Note 01/20/2023 (5) Patient will require monitoring drug therapy for toxic effects Plan of care discussed with patient and nurse All diagnostics of last 24 hours been reviewed. Pain Management Progress Note 01/22/2023 (1) DEMENTIA Internal Medicine Prog. Note 01/20/2023 (5) Seizures Internal Medicine Prog. Note 01/20/2023 (5) Syncope, Chronic kidney disease, recurrent UTI with multidrug-resistant bacteria , bacteremia, presented to the emergency room via EMS from skilled care nursing facility with altered mental status. Internal Medicine Prog. Note 01/20/2023 (5) Altered mental status Internal Medicine Prog. Note 01/20/2023 (5) NS 1,000 mL Options provided: -- Respond - Create new note now -- Dismiss - Not applicable / Not valid -- Dismiss - Clinically unable to determine / Unknown -- Assign to another provider QUERY RESPONSE: Metabolic encephalopathy Query created by: Luna Lombardo on 01/26/2023 2:00 AM at 1055 PATIENT NAME: SALINA LAFLEUR [facility] 2023-01-29 10:55:00 [id number] [place] [address] PATIENT NAME: SALINA LAFLEUR ADMIT DATE: 01/19/23 ACCOUNT NO: [id number] ROOM NO: G.[id number] AGE: 67 REPORT TYPE: 360 - QUERY RESPONSE DOCUMENT SEX: F ADMITTING PHYSICIAN:Stef Moore MD ATTENDING PHYSICIAN:Stef Moore MD Provider Query QUERY TEXT: Stage CKD 360MD Query related questions should be directed to: [facility] Coding Query Help-line Based on your clinical judgment, can you further specify the stage of the chronic kidney disease located in Internal Medicine Prog. Note 01/21/2023 (3) Pertinent lab findings are as follows: Glomerular Filtr Rate (80 - 90) 97.7 H Creatinine (0.6 - 1.3 mg/dL) 0.6 Stages of Kidney Damage according to the [employer] are defined as follows: -- Stage 1 Kidney damage with normal kidney function (GFR > 90) -- Stage 2 Kidney damage with mildly decreased kidney function (GFR 60-89) -- Stage 3a Kidney damage with mildly to moderately decreased kidney function (GFR 45-59) -- Stage 3b Kidney damage with moderately to severely decreased kidney function (GFR 30-44) -- Stage 4 Kidney damage with severely decreased kidney function (GFR 15-29) -- Stage 5 Kidney failure (GFR <15 or on dialysis) -- End Stage Renal Disease (GFR <15 or on dialysis or transplant) The patient's Clinical Indicators include: Chronic kidney disease, -Internal Medicine Prog. Note 01/21/2023 (3) Glomerular Filtr Rate (80 - 90) 97.7 H Creatinine (0.6 - 1.3 mg/dL) 0.6 BUN 15 Potassium (3.4 - 5.0 mEq/L) 3.7 NS 1,000 mL Options provided: -- Stage 1 -- Stage 2 -- Stage 3a -- Stage 3b -- Stage 3 -- Stage 4 -- Stage 5 -- End Stage -- Other - I will add my own diagnosis -- Dismiss - Not applicable / Not valid -- Dismiss - Clinically unable to determine / Unknown -- Assign to another provider QUERY RESPONSE: The patient has stage 1 chronic kidney disease. Query created by: Luna Lombardo on 01/26/2023 2:01 AM at 1055 PATIENT NAME: SALINA LAFLEUR [facility] 2023-01-29 10:53:00 [facility] Cardiology Progress Note REPORT#:[id number] REPORT STATUS: Signed REPORT INITIALIZATION DATE:01/29/23 TIME: 1053 PATIENT: SALINA LAFLEUR UNIT #: [id number] ROOM/BED: [address] : 54 AGE: 67 SEX: F ATTEND: Josi Wilkins MD ADM AUTHOR: Kait Cantu AGACNP REPT SERVICE DT/TIME: 01/29/23 1053 * ALL edits or amendments must be made on the electronic/computer document * Subjective Patient reports: No: complaints. Objective General VS/I O: 24 hour I O ending at 0700: 01/29 0700 01/28 1900 Intake Total 611.00 Output Total 900 350 Balance -900 261.00 Intake, IV 461.00 Intake, Oral 150 Output, Urine 900 350 Patient 85.6 kg Weight Weight Bed scale Measurement Method Vital Signs Date Temp Pulse Resp B/P B/P Mean Pulse Ox FiO2 01/28-01/29 35.9-37.0 46-94 10-29 97-307/54-307 75-307 90-100 PATIENT WEIGHT: Weight (lb): 188 Weight (oz): 11.45 Weight (kg): 85.600 Medications: Active Meds + DC'd Last 24 Hrs Fentanyl Citrate (SUBLIMAZE) 50 MCG Q2H PRN PRN IV Docusate Sodium (COLACE) 100 MG BID PO Folic Acid (FOLIC ACID) 1 MG DAILY PO Multivitamins (TAB-A-KOREY) 1 TAB DAILY PO Polyethylene Glycol (MIRALAX) 17 GM DAILY PO Thiamine HCl (THIAMINE HCL) 100 MG DAILY IV Budesonide (PULMICORT RESPULES) 0.5 MG RTBID INH Formoterol Fumarate (PERFOROMIST) 20 MCG RTBID NEB Gabapentin (NEURONTIN) 300 MG BEDTIME PO Acetaminophen (TYLENOL EXTRA STRENGTH) 1,000 MG Q6HR PO Ketorolac Tromethamine (TORADOL) 15 MG Q6HR IV Albuterol/Ipratropium (DUONEB) 3 ML RTQ6H PRN PRN NEB Docusate Sodium (COLACE) 100 MG Q12H PRN PRN PO Hydromorphone HCl (DILAUDID) 1 MG Q4H PRN PRN IV (DC) Lactated Ringer's (LACTATED RINGERS) 1,000 ML .Q8H20M IV (DC) Ondansetron HCl (ZOFRAN) 4 MG PACU ONCE ONE IV (DC) Ondansetron HCl (ZOFRAN) 4 MG Q4H PRN PRN IV Simethicone (MYLANTA GAS) 80 MG Q4H PRN PRN PO Tramadol HCl (ULTRAM) 50 MG Q6H PRN PRN PO Sodium Chloride (SODIUM CHLORIDE 0.9%) 500 ML .STK-MED ONE IV (DC) Labetalol HCl (LABETALOL HCL) 0 .STK-MED ONE IV (DC) Ketorolac Tromethamine (TORADOL 30 MG) 0 .STK-MED ONE .ROUTE (DC) Lidocaine HCl (PRE-ATTACHED LTA KIT) 0 .STK-MED ONE TOPICAL (DC) Glycopyrrolate (GLYCOPYRROLATE) 0 .STK-MED ONE .ROUTE (DC) Neostigmine Methylsulfate (PROSTIGMIN) 0 .STK-MED ONE .ROUTE (DC) Fentanyl Citrate (SUBLIMAZE) 0 .STK-MED ONE .ROUTE (DC) Rocuronium Pacolet (ZEMURON) 0 .STK-MED ONE IV (DC) Glycopyrrolate (GLYCOPYRROLATE) 0 .STK-MED ONE .ROUTE (DC) Fentanyl Citrate (SUBLIMAZE) 0 .STK-MED ONE .ROUTE (DC) Diphenhydramine HCl (BENADRYL) 12.5 MG PACU ONCE PRN IV (DC) Fentanyl Citrate (SUBLIMAZE) 100 MCG PACU Q10MIN PRN PRN IV (DC) Fentanyl Citrate (SUBLIMAZE) 50 MCG PACU Q10MIN PRN PRN IV (DC) Hydralazine HCl (APRESOLINE) 5 MG PACU Q10MIN PRN PRN IV (DC) Hydrocodone Bitart/Acetaminophen (NORCO 5/325) 1 TAB PACU ONCE PO (DC) Hydromorphone HCl (DILAUDID) 1 MG PACU Q10MIN PRN PRN IV (DC) Hydromorphone HCl (DILAUDID) 0.5 MG PACU Q5MIN PRN PRN IV (DC) Insulin Human Lispro (HUMALOG) 0 PACU ONCE PRN SUBQ (DC) Labetalol HCl (LABETALOL HCL) 5 MG PACU Q10MIN PRN PRN IV (DC) Meperidine HCl (MEPERIDINE HCL/PF) 12.5 MG PACU ONCE PRN IV (DC) Morphine Sulfate (morphine SULFATE) 2 MG PACU Q10MIN PRN PRN IV (DC) Ondansetron HCl (ZOFRAN) 4 MG PACU ONCE PRN IV (DC) Ropivacaine (NAROPIN 0.5% 150 MG/30mL) 150 MG ASDIR PRN LOCAL (DC) Tramadol HCl (ULTRAM) 50 MG PACU ONCE PO (DC) Cefazolin Sodium (KEFZOL OR ANCEF) 2 GM PREOP ONCALL IV (CKD) Celecoxib (CeleBREX) 200 MG PREOP ONCALL PO (DC) Sodium Chloride (SODIUM CHLORIDE) 20 ML ASDIR IV Acetaminophen (TYLENOL EXTRA STRENGTH) 1,000 MG PREOP ONCALL PO (DC) Gabapentin (NEURONTIN) 200 MG PREOP ONCALL PO (DC) Lactated Ringer's (LACTATED RINGERS) 1,000 ML PREOP ONCALL IV Lidocaine HCl (LIDOCAINE HCL/PF) 2 ML PREOP ONCALL LOCAL Lidocaine HCl (LIDOCAINE HCL/PF) 2 ML PREOP ONCALL LOCAL Sodium Chloride (SODIUM CHLORIDE 0.9%) 500 ML PREOP ONCALL IV Sodium Chloride (SODIUM CHLORIDE 0.9%) 500 ML PREOP ONCALL IV Sodium Chloride (SODIUM CHLORIDE 0.9%) 1,000 ML PREOP ONCALL IV Sodium Chloride (SODIUM CHLORIDE) 5 ML ASDIR PRN IV Sodium Chloride (SODIUM CHLORIDE) 10 ML ASDIR PRN IV Sodium Chloride (SODIUM CHLORIDE 0.9%) 250 ML ASDIR PRN IV Physical Exam General appearance: alert, awake, oriented Neck: non-tender, no JVD Cardiovascular: CV assessment: regular rate and rhythm Murmur assessment: systolic murmur Respiratory: clear to auscultation, no distress Abdomen: tenderness Lower extremity: LE assessment: no edema Musculoskeletal: normal inspection Neuro/TICK SEWER: alert, oriented X 3 Skin: dry Ulcer: Type/cause: bacterial Psychiatry: normal affect, normal mood Results Findings/Data: Laboratory Tests 01/29 430 Chemistry Sodium (134 - 147 mEq/L) 139 Potassium (3.4 - 5.0 mEq/L) 4.6 Chloride (100 - 108 mEq/L) 105 Carbon Dioxide (21 - 33 mEq/l) 29 Anion Gap (0 - 20) 9 BUN (7 - 25 mg/dL) 14 Creatinine (0.6 - 1.3 mg/dL) 0.6 Glomerular Filtr Rate (80 - 90) 97.7 H Glucose (77 - 141 mg/dL) 135 Calcium (8.0 - 10.5 mg/dL) 9.2 Laboratory Tests 01/29 430 Hematology WBC (4.5 - 11.0 x10 3/uL) 8.2 RBC (3.54 - 5.02 x10 6/uL) 3.40 L Hgb (11.0 - 15.0 g/dL) 10.7 L Hct (33.0 - 45.0 %) 33.0 MCV (81.0 - 99.0 fL) 97.1 MCH (27.0 - 33.0 pg) 31.5 MCHC (33.0 - 37.0 g/dL) 32.4 L RDW (11.5 - 14.5 %) 14.7 H Plt Count (150 - 400 x10 3/uL) 305 MPV (7.0 - 9.0 fL) 9.2 H Neut % (Auto) (56.0 - 77.0 %) 68.7 Lymph % (Auto) (14.0 - 32.0 %) 22.2 Riley % (Auto) (4.8 - 9.0 %) 8.8 Eos % (Auto) (0.3 - 3.7 %) 0.0 L Baso % (Auto) (0.0 - 2.0 %) 0.1 Neut # (Auto) (2.0 - 7.6 x10 3/uL) 5.61 Lymph # (Auto) (1.0 - 3.8 x10 3/uL) 1.82 Riley # (Auto) (0.1 - 0.8 x10 3/uL) 0.72 Eos # (Auto) (0.0 - 0.2 x10 3/uL) 0.00 Baso # (Auto) (0.0 - 0.2 x10 3/uL) 0.01 Abs Immat Gran (auto) (0.00 - 0.03 x10 3/uL) 0.02 Immature Gran % (0.0 - 2.0 %) 0.2 Nucleated RBC % (0 - 0 %) 0.0 Nucleated RBCs # (Man) (0.0 - 0.1 x10 3/uL) 0.00 Results: labs reviewed, vital signs reviewed Telemetry Interpretation: sinus bradycardia to sinus rhythm Diagnosis, Assessment Plan Plan discussed with: patient, family, collaborating MD Free Text DxA P Notes Free Text DxA P Notes: Cardiolgoy consultation for and MR on this 67 YO female with MHx of HTN, COPD , prior smoker, severe aortic valve stenosis and severe mitral valve regurgitation. She is being worked up for double valve surgery, incidentally found to have large abdominal pelvic mass therefore heart surgery was put on hold. She was evaluated by OBGYN and today patient had exploratory laparatomy and total abdominal hysterectomy with bilateral salpingo-oophorectomy. # Severe , severe MR * valve surgery after recovery from TAHBSO # Pelvic mass s/p TAHBSO * per OBGYN note - patient has right benign ovarian tumor # Hypertension * resume Isbesartan (ATS to losartan 50 mg daily) Stable CV status. valve surgery after recovery from TAHBSO MDM by Dr. Pham at 1058 at 1323 RPT #:[id number] END OF REPORT [facility] 2023-01-28 18:04:00 [facility] ([facility]) History Physical - Adult REPORT#:[id number] REPORT STATUS: Signed REPORT INITIALIZATION DATE:01/28/23 TIME: 1803 PATIENT: SALINA LAFLEUR UNIT #: [id number] ROOM/BED: [place] [address] : 54 AGE: 67 SEX: F ATTEND: Josi Wilkins MD ADM AUTHOR: Angeles Zarate SAUSAGE MACHINE OPERATOR REPT SERVICE DT/TIME: 01/28/231803 * ALL edits or amendments must be made on the electronic/computer document * History of Present Illness HPI Chief complaint: Status post total abdominal hysterectomy HPI: Assessment: 67-year-old female with past medical history of COPD, depression, restless leg syndrome, hypertension, AVR/MVR presented to [facility] for elective total abdominal hysterectomy. Patient underwent TAHBSO. Postop patient was admitted to ICU and being continuously monitored. Patient denies fever, chills, chest pain, or other associated symptoms. Admission vital signs:Blood pressure 154/89, pulse 65, respiratory 15, temperature 36.6, O2 sat 100% on room air. History Additional medical history: 1. HTN 2. COPD 3. Severe 4. Severe MR Additional surgical history: 1. LHC - no CAD 2. JAMES - severe MR, Severe 3. Hip surgery Alcohol use: Denies EtOH use Drug use: Denies recreational drugs Smoking status for patients 13 years old or older: Former Smoker Date last smoked: 03/29/12 Packs per day: 1 Years smoked: 42 Pack years: 42 Medication/Allergy-Vaccine Hx Allergies: Coded Allergies: sulfamethoxazole (From BACTRIM) (Mild, HIVES 01/20/23) trimethoprim (From BACTRIM) (Mild, HIVES 01/20/23) Review of Systems Constitutional: Denies: chills, fever. ENT: Denies: earache, nasal congestion, sore throat. Respiratory: Denies: hemoptysis, parox nocturnal dyspnea, pleurisy, pleuritic pain, pneumonia , SOB, wheezing. Cardiovascular: Denies: chest pain, palpitations. GI: Reports: abdominal pain, nausea. Denies: vomiting. : Denies: flank pain, frequency, hematuria. Musculoskeletal: Arthritis: Denies: left upper, left lower, right upper, right lower. Neuro: Denies: change in LOC, confusion, dizziness, focal weakness, gait problem, headache, lightheaded, numbness, seizure, slurred speech, spinning sensation, syncope, unable to speak, vision change. Psych: Denies: agitation, anxiety, auditory hallucination, change in mental status, confusion, delusional, depression, homicidal ideation, hostile, insomnia, stress , suicidal ideation, visual hallucination. Free Text ROS Notes Free Text ROS Notes: Denies: chills, fever. ENT: Denies: earache, nasal congestion, sore throat. Respiratory: Reports: HILL (dyspnea on exertion). Denies: hemoptysis, parox nocturnal dyspnea , pleurisy, pleuritic pain, pneumonia, SOB, wheezing. Cardiovascular: Reports: HILL (dyspnea on exertion). Denies: chest pain, palpitations. GI: Reports: abdominal pain, nausea, vomiting. : Denies: flank pain, frequency, hematuria. Musculoskeletal: Arthritis: Denies: left upper, left lower, right upper, right lower. Neuro: Denies: change in LOC, confusion, dizziness, focal weakness, gait problem, headache, lightheaded, numbness, seizure, slurred speech, spinning sensation, syncope, unable to speak, vision change. Psych: Denies: agitation, anxiety, auditory hallucination, change in mental status, confusion, delusional, depression, homicidal ideation, hostile, insomnia, stress , suicidal ideation, visual hallucination. Physical Exam VS/I O Vital Signs: Date Time Temp Pulse Resp B/P B/P Pulse O2 O2 Flow FiO2 Mean Ox Delivery Rate 01/28 1457 151/93 121 01/28 1457 54 11 174/79 114 100 01/28 1445 53 23 159/84 115 100 01/28 1430 52 19 165/69 106 98 01/28 1415 55 19 155/64 99 99 01/28 1400 54 25 01/28 1400 35.9 01/28 1345 52 14 132/58 99 Room air 01/28 1330 53 12 134/71 100 Room air 01/28 1315 61 15 139/71 100 Room air 01/28 1310 56 15 145/80 100 Nasal 2 cannula 01/28 1309 Simple 10 mask 01/28 1305 61 12 136/66 100 01/28 1300 36.4 61 22 135/64 100 Simple 10 mask 01/28 0930 36.6 67 16 138/75 99 Room air 24 hour I O ending at 0700: 01/28 0700 01/27 1900 Intake Total Output Total Balance Patient 85 kg Weight Weight Standing scale Measurement Method PATIENT WEIGHT: Weight (lb): 187 Weight (oz): 6.29 Weight (kg): 85.000 General appearance: alert, awake, oriented ENT: normal dentition Neck: no JVD Cardiovascular: decreased cap refill, ectopy Respiratory: hypercapnia Abdomen/GI: decreased bowel sounds, distended Genitourinary: cervical dilation, cervical lesion, cervical motion tender Extremities: rigid tone, warm Neuro/TICK SEWER: alert, oriented X 3 Skin: pale, rash Ulcer: Type/cause: bacterial Psychiatry: normal judgment/insight Results Findings/Data: Laboratory Tests: 01/28 930 Chemistry Sodium (134 - 147 mEq/L) 138 Potassium (3.4 - 5.0 mEq/L) 4.0 Chloride (100 - 108 mEq/L) 103 Carbon Dioxide (21 - 33 mEq/l) 29 Anion Gap (0 - 20) 10 BUN (7 - 25 mg/dL) 14 Creatinine (0.6 - 1.3 mg/dL) 0.6 Glomerular Filtr Rate (80 - 90) 97.7 H Glucose (77 - 141 mg/dL) 92 Calcium (8.0 - 10.5 mg/dL) 9.3 Diagnosis, Assessment Plan Free Text DxA P Notes Free Text DxA P Notes: Assessment: 67-year-old female with past medical history of COPD, depression, restless leg syndrome, hypertension, AVR/MVR presented to [facility] for elective total abdominal hysterectomy. Patient underwent TAHBSO. Postop patient was admitted to ICU and being continuously monitored. Patient denies fever, chills, chest pain, or other associated symptoms. Admission vital signs:Blood pressure 154/89, pulse 65, respiratory 15, temperature 36.6, O2 sat 100% on room air. 1. Large cystic lesion in the midline and adnexa -Status post TAHBSO 2. Severe AVR/MVR 3. Hypertension 4. COPD 5. Depression/anxiety 6. Restless leg syndrome 7. Chronic edema to bilateral lower extremities right larger than left Plan of care: Admit patient for further evaluation and treatment Pain control Continue and on engine monitor IV fluids Pain control Keep on telemetry Repeat labs Strict I's and O's Pain control Antiemetics Reconcile home medication when available Hypertension control Further recommendation will be based on patient's clinical course at 1345 at 0962 RPT #:[id number] END OF REPORT [facility] 2023-01-28 15:43:00 [facility] ([facility]) Critical Care Consult Note REPORT#:[id number] REPORT STATUS: Signed REPORT INITIALIZATION DATE:01/28/23 TIME: 1542 PATIENT: SALINA LAFLEUR UNIT #: [id number] ROOM/BED: [place] [address] : 54 AGE: 67 SEX: F ATTEND: Josi Wilkins MD ADM AUTHOR: Hortensia Welsh NP REPT SERVICE DT/TIME: 01/28/23 1543 * ALL edits or amendments must be made on the electronic/computer document * History of Present Illness HPI Requesting clinician: Dr. Wilkins Reason for consult: critical Chief complaint: abdominal pain PCP: PCP: Vijay Woodruff MD HPI: Salina Lafleur is a 67-year-old female past medical history COPD, depression, restless leg syndrome, hypertension, critical aortic stenosis, ETOH use. Presented today to have elective exploratory laparotomy, total hysterectomy, and bilateral salpingo-oophorectomy for large right abdominal pelvic mass. ICU admission was requested postoperatively by anesthesia given her multiple comorbidities. History - Adult longitudinal Additional medical history: 1. HTN 2. COPD 3. Severe 4. Severe MR Additional surgical history: 1. LHC - no CAD 2. JAMES - severe MR, Severe 3. Hip surgery Alcohol use: Denies EtOH use Drug use: Denies recreational drugs Smoking status for patients 13 years old or older: Former Smoker Date last smoked: 03/29/12 Packs per day: 1 Years smoked: 42 Pack years: 42 Allergies: Coded Allergies: sulfamethoxazole (From BACTRIM) (Mild, HIVES 01/20/23) trimethoprim (From BACTRIM) (Mild, HIVES 01/20/23) Review of Systems ROS Respiratory: Denies: SOB. Cardiovascular: Denies: chest pain. GI: Reports: abdominal pain. Objective Physical Exam VS/I O: Last Documented: Result Date Time B/P 151/93 01/28 1457 B/P Mean 121 01/28 1457 Pulse Ox 100 01/28 1457 Pulse 54 01/28 1457 Resp 11 01/28 1457 Temp 96.6 01/28 1400 O2 Delivery Room air 01/28 1345 O2 Flow Rate 2 01/28 1310 24 hour I O ending at 0700: 01/28 0700 01/27 1900 Intake Total Output Total Balance Patient 85 kg Weight Weight Standing scale Measurement Method Patient Weight and BMI Weight (kg): 85.000 BMI: 32.2 General appearance: alert, awake, oriented Head/Eyes: atraumatic, clear cornea ENT: poor dentition Neck: full range of motion, non-tender, no JVD, no masses or swelling Cardiovascular: bradycardia, normal capillary refill, normal heart sounds, regular rate and rhythm Respiratory: aerating well, clear to auscultation, symmetric expansion Abdomen: abnormal bowel sounds, tenderness Genitourinary: urinary catheter Extremities: moves all Musculoskeletal: normal inspection Neuro/TICK SEWER: alert, oriented X 3, normal speech Skin: dry Psychiatry: normal affect Results Findings/Data: Laboratory Tests 01/28/23 09: [Embedded Image Not Available] Laboratory Tests 01/28 930 Chemistry Sodium (134 - 147 mEq/L) 138 Potassium (3.4 - 5.0 mEq/L) 4.0 Chloride (100 - 108 mEq/L) 103 Carbon Dioxide (21 - 33 mEq/l) 29 Anion Gap (0 - 20) 10 BUN (7 - 25 mg/dL) 14 Creatinine (0.6 - 1.3 mg/dL) 0.6 Glomerular Filtr Rate (80 - 90) 97.7 H Glucose (77 - 141 mg/dL) 92 Calcium (8.0 - 10.5 mg/dL) 9.3 Radiology data: Recent Impressions: RADIOLOGY - XR CHEST 2 V 01/27 1608 Report Impression - Status: SIGNED Entered: 01/27/2023 1644 IMPRESSION: There is no radiographic evidence of acute cardiopulmonary disease. Impression By: Tato Rodriguez M.D. Diagnosis, Assessment Plan Free text DxA P: Acute Problem list: right ovarian tumor s/p Exploratory laparotomy and total abdominal hysterectomy with bilateral salpingo-oophorectomy on 01/28 Chronic issues: COPD aortic stenosis depression restless leg syndrome hypertension Neuro: multimodal pain regimine. CIWA. thiamine/mvi/folic acid Cardiovascular: MAP 90-100; HR<60. Respiratory: Keep saturation >94%. O2 as needed. duoneb/formoterol/budesonide available Renal: Monitor intake/output. Replace electrolytes. IVF GI: advancce Diet as tolerated. bowel regimen ID: No issues Hem: Hemoglobin> 7 Endo: Blood sugar 140-180 Prophylaxis: SCD only given recent post op PT/OT/AAT Dispo: monitor in ICU overnight I have spent 35 minutes critical care time assessing, reviewing labs and imaging and discussing plan of care with the critical care fruit or nut farm worker. at 1600 RPT #:[id number] END OF REPORT [facility] 2023-01-28 14:18:00 [facility] ([facility]) Cardiology Consultation REPORT#:[id number] REPORT STATUS: Signed REPORT INITIALIZATION DATE:01/28/23 TIME: 1417 PATIENT: SALINA LAFLEUR UNIT #: [id number] ROOM/BED: [address] : 54 AGE: 67 SEX: F ATTEND: Josi Wilkins MD ADM AUTHOR: Kait Cantu AGACNP REPT SERVICE DT/TIME: 01/28/23 141 * ALL edits or amendments must be made on the electronic/computer document * History of Present Illness HPI Requesting Clinician: Dr Wilkins Reason for consult: Cardiology evaluation PCP: PCP: Vijay Woodruff MD HPI: Cardiolgoy consultation for and MR on this 67 YO female with MHx of HTN, COPD , prior smoker, severe aortic valve stenosis and severe mitral valve regurgitation. She is being worked up for double valve surgery, incidentally found to have large abdominal pelvic mass therefore heart surgery was put on hold. She was evaluated by OBGYN and today patient had exploratory laparatomy and total abdominal hysterectomy with bilateral salpingo-oophorectomy. Hx Obtained From Prior medical records History - Adult longitudinal Additional medical history: 1. HTN 2. COPD 3. Severe 4. Severe MR Additional surgical history: 1. LHC - no CAD 2. JAMES - severe MR, Severe 3. Hip surgery Alcohol use: Denies EtOH use Drug use: Denies recreational drugs Smoking status for patients 13 years old or older: Former Smoker Date last smoked: 03/29/12 Packs per day: 1 Years smoked: 42 Pack years: 42 Home medications: Home Medications: BUDESONIDE/FORMOTEROL FUMARATE (SYMBICORT 80/4.5 MCG/ACT) 2 PUFF INH BID IRBESARTAN/HCTZ (AVALIDE 150/12.5 MG) 1 TAB PO DAILY ROSUVASTATIN (CRESTOR) 5 MG PO BEDTIME MAGNESIUM GLUCONATE 1 TAB PO DAILY CYANOCOBALAMIN (VITAMIN B-12) 1,000 MCG PO DAILY OMEGA-3 FATTY ACIDS (FISH OIL) 1,000 MG PO DAILY MULTIVITAMIN (MULTIPLE VITAMIN) 1 TAB PO DAILY VITAMIN E 400 UNITS PO DAILY rOPINIRole (REQUIP) 2 MG PO TID ESCITALOPRAM (LEXAPRO) 10 MG PO DAILY FOLIC ACID 1 MG PO DAILY Allergies: Coded Allergies: sulfamethoxazole (From BACTRIM) (Mild, HIVES 01/20/23) trimethoprim (From BACTRIM) (Mild, HIVES 01/20/23) Review of Systems Constitutional: Denies: generalized weakness. Respiratory: Denies: SOB. Cardiovascular: Denies: chest pain. Psych: Denies: anxiety. Objective General VS/I O: Vital Signs: Date Time Temp Pulse Resp B/P B/P Pulse O2 O2 Flow FiO2 Mean Ox Delivery Rate 01/28 1345 52 14 132/58 99 Room air 01/28 1330 53 12 134/71 100 Room air 01/28 1315 61 15 139/71 100 Room air 01/28 1310 56 15 145/80 100 Nasal 2 cannula 01/28 1309 Simple 10 mask 01/28 1305 61 12 136/66 100 01/28 1300 36.4 61 22 135/64 100 Simple 10 mask 01/28 0930 36.6 67 16 138/75 99 Room air 24 hour I O ending at 0700: 01/28 0700 01/27 1900 Intake Total Output Total Balance Patient 85 kg Weight Weight Standing scale Measurement Method PATIENT WEIGHT: Weight (lb): 187 Weight (oz): 6.29 Weight (kg): 85.000 Medications: Active Meds + DC'd Last 24 Hrs Docusate Sodium (COLACE) 100 MG BID PO Gabapentin (NEURONTIN) 300 MG BEDTIME PO Acetaminophen (TYLENOL EXTRA STRENGTH) 1,000 MG Q6HR PO Ketorolac Tromethamine (TORADOL) 15 MG Q6HR IV Docusate Sodium (COLACE) 100 MG Q12H PRN PRN PO Hydromorphone HCl (DILAUDID) 1 MG Q4H PRN PRN IV Lactated Ringer's (LACTATED RINGERS) 1,000 ML .Q8H20M IV Ondansetron HCl (ZOFRAN) 4 MG PACU ONCE ONE IV (DC) Ondansetron HCl (ZOFRAN) 4 MG Q4H PRN PRN IV Simethicone (MYLANTA GAS) 80 MG Q4H PRN PRN PO Tramadol HCl (ULTRAM) 50 MG Q6H PRN PRN PO Sodium Chloride (SODIUM CHLORIDE 0.9%) 500 ML .STK-MED ONE IV (DC) Labetalol HCl (LABETALOL HCL) 0 .STK-MED ONE IV (DC) Ketorolac Tromethamine (TORADOL 30 MG) 0 .STK-MED ONE .ROUTE (DC) Lidocaine HCl (PRE-ATTACHED LTA KIT) 0 .STK-MED ONE TOPICAL (DC) Glycopyrrolate (GLYCOPYRROLATE) 0 .STK-MED ONE .ROUTE (DC) Neostigmine Methylsulfate (PROSTIGMIN) 0 .STK-MED ONE .ROUTE (DC) Fentanyl Citrate (SUBLIMAZE) 0 .STK-MED ONE .ROUTE (DC) Rocuronium Pacolet (ZEMURON) 0 .STK-MED ONE IV (DC) Glycopyrrolate (GLYCOPYRROLATE) 0 .STK-MED ONE .ROUTE (DC) Fentanyl Citrate (SUBLIMAZE) 0 .STK-MED ONE .ROUTE (DC) Bupivacaine HCl (MARCAINE) 0 .STK-MED ONE .ROUTE (DC) Bupivacaine Liposome (Exparel 266 MG/20 Ml Vial) 0 .STK-MED ONE LOCAL ( DC) Bupivacaine HCl (MARCAINE) 0 .STK-MED ONE .ROUTE (DC) Sodium Chloride (SODIUM CHLORIDE 0.9%) 50 ML .STK-MED ONE IV (DC) Phenylephrine HCl (ALEX-SYNEPHRINE 10MG/ML AMP) 0 .STK-MED ONE .ROUTE (DC ) Sodium Chloride (SODIUM CHLORIDE 0.9%) 250 ML .STK-MED ONE IV (DC) Phenylephrine HCl (Phenylephrine PF 500 mcg/5 mL Inj) 0 .STK-MED ONE .ROUTE (DC) Dexamethasone Sodium Phosphate (DECADRON) 0 .STK-MED ONE .ROUTE (DC) Esmolol HCl (BREVIBLOC) 0 .STK-MED ONE IV (DC) Etomidate (AMIDATE) 0 .STK-MED ONE IV (DC) Lidocaine HCl (XYLOCAINE) 0 .STK-MED ONE .ROUTE (DC) Ondansetron HCl (ZOFRAN) 0 .STK-MED ONE .ROUTE (DC) Rocuronium Pacolet (ZEMURON) 0 .STK-MED ONE IV (DC) Fentanyl Citrate (SUBLIMAZE) 0 .STK-MED ONE .ROUTE (DC) Midazolam HCl (VERSED) 0 .STK-MED ONE .ROUTE (DC) Diphenhydramine HCl (BENADRYL) 12.5 MG PACU ONCE PRN IV (DC) Fentanyl Citrate (SUBLIMAZE) 100 MCG PACU Q10MIN PRN PRN IV (DC) Fentanyl Citrate (SUBLIMAZE) 50 MCG PACU Q10MIN PRN PRN IV (DC) Hydralazine HCl (APRESOLINE) 5 MG PACU Q10MIN PRN PRN IV (DC) Hydrocodone Bitart/Acetaminophen (NORCO 5/325) 1 TAB PACU ONCE PO (DC) Hydromorphone HCl (DILAUDID) 1 MG PACU Q10MIN PRN PRN IV (DC) Hydromorphone HCl (DILAUDID) 0.5 MG PACU Q5MIN PRN PRN IV (DC) Insulin Human Lispro (HUMALOG) 0 PACU ONCE PRN SUBQ (DC) Labetalol HCl (LABETALOL HCL) 5 MG PACU Q10MIN PRN PRN IV (DC) Meperidine HCl (MEPERIDINE HCL/PF) 12.5 MG PACU ONCE PRN IV (DC) Morphine Sulfate (morphine SULFATE) 2 MG PACU Q10MIN PRN PRN IV (DC) Ondansetron HCl (ZOFRAN) 4 MG PACU ONCE PRN IV (DC) Ropivacaine (NAROPIN 0.5% 150 MG/30mL) 150 MG ASDIR PRN LOCAL (DC) Tramadol HCl (ULTRAM) 50 MG PACU ONCE PO (DC) Cefazolin Sodium (KEFZOL OR ANCEF) 0 .STK-MED ONE .ROUTE (DC) Gabapentin (NEURONTIN) 0 .STK-MED ONE .ROUTE (DC) Acetaminophen (TYLENOL EXTRA STRENGTH) 0 .STK-MED ONE .ROUTE (DC) Cefazolin Sodium (KEFZOL OR ANCEF) 0 .STK-MED ONE .ROUTE (DC) Celecoxib (CeleBREX) 0 .STK-MED ONE .ROUTE (DC) Cefazolin Sodium (KEFZOL OR ANCEF) 2 GM PREOP ONCALL IV (CKD) Celecoxib (CeleBREX) 200 MG PREOP ONCALL PO (DC) Sodium Chloride (SODIUM CHLORIDE) 20 ML ASDIR IV Acetaminophen (TYLENOL EXTRA STRENGTH) 1,000 MG PREOP ONCALL PO (DC) Gabapentin (NEURONTIN) 200 MG PREOP ONCALL PO (DC) Lactated Ringer's (LACTATED RINGERS) 1,000 ML PREOP ONCALL IV Lidocaine HCl (LIDOCAINE HCL/PF) 2 ML PREOP ONCALL LOCAL Lidocaine HCl (LIDOCAINE HCL/PF) 2 ML PREOP ONCALL LOCAL Sodium Chloride (SODIUM CHLORIDE 0.9%) 500 ML PREOP ONCALL IV Sodium Chloride (SODIUM CHLORIDE 0.9%) 500 ML PREOP ONCALL IV Sodium Chloride (SODIUM CHLORIDE 0.9%) 1,000 ML PREOP ONCALL IV Sodium Chloride (SODIUM CHLORIDE) 5 ML ASDIR PRN IV Sodium Chloride (SODIUM CHLORIDE) 10 ML ASDIR PRN IV Sodium Chloride (SODIUM CHLORIDE 0.9%) 250 ML ASDIR PRN IV Physical Exam General appearance: alert, awake, oriented Neck: non-tender, no JVD Cardiovascular: CV assessment: regular rate and rhythm Murmur assessment: systolic murmur Respiratory: clear to auscultation, no distress Abdomen: tenderness Musculoskeletal: normal inspection Neuro/TICK SEWER: alert, oriented X 3 Skin: dry Psychiatry: normal affect, normal mood Results Findings/Data: Laboratory Tests 01/28 01/27 0930 1531 Chemistry Sodium (134 - 147 mEq/L) 138 138 Potassium (3.4 - 5.0 mEq/L) 4.0 4.3 Chloride (100 - 108 mEq/L) 103 101 Carbon Dioxide (21 - 33 mEq/l) 29 30 Anion Gap (0 - 20) 10 11 BUN (7 - 25 mg/dL) 14 22 Creatinine (0.6 - 1.3 mg/dL) 0.6 1.1 Glomerular Filtr Rate (80 - 90) 97.7 H 54.7 L Glucose (77 - 141 mg/dL) 92 79 Calcium (8.0 - 10.5 mg/dL) 9.3 9.5 Laboratory Tests 01/27 1531 Coagulation INR (0.8 - 1.2) 1.0 PTT (Margarita) (25.0 - 39.5 Seconds) 31.3 PT Patient/Control Mix (9.3 - 12.9 SECONDS) 11.2 Laboratory Tests 01/27 1531 Hematology WBC (4.5 - 11.0 x10 3/uL) 6.2 RBC (3.54 - 5.02 x10 6/uL) 3.80 Hgb (11.0 - 15.0 g/dL) 11.9 Hct (33.0 - 45.0 %) 36.9 MCV (81.0 - 99.0 fL) 97.1 MCH (27.0 - 33.0 pg) 31.3 MCHC (33.0 - 37.0 g/dL) 32.2 L RDW (11.5 - 14.5 %) 14.9 H Plt Count (150 - 400 x10 3/uL) 342 MPV (7.0 - 9.0 fL) 8.8 Neut % (Auto) (56.0 - 77.0 %) 59.9 Lymph % (Auto) (14.0 - 32.0 %) 29.6 Riley % (Auto) (4.8 - 9.0 %) 8.1 Eos % (Auto) (0.3 - 3.7 %) 1.6 Baso % (Auto) (0.0 - 2.0 %) 0.5 Neut # (Auto) (2.0 - 7.6 x10 3/uL) 3.71 Lymph # (Auto) (1.0 - 3.8 x10 3/uL) 1.83 Riley # (Auto) (0.1 - 0.8 x10 3/uL) 0.50 Eos # (Auto) (0.0 - 0.2 x10 3/uL) 0.10 Baso # (Auto) (0.0 - 0.2 x10 3/uL) 0.03 Abs Immat Gran (auto) (0.00 - 0.03 x10 3/uL) 0.02 Immature Gran % (0.0 - 2.0 %) 0.3 Nucleated RBC % (0 - 0 %) 0.0 Nucleated RBCs # (Man) (0.0 - 0.1 x10 3/uL) 0.00 Radiology Data: Recent Impressions: RADIOLOGY - XR CHEST 2 V 01/27 1608 Report Impression - Status: SIGNED Entered: 01/27/2023 8054 IMPRESSION: There is no radiographic evidence of acute cardiopulmonary disease. Impression By: Tato Rodriguez M.D. Results: labs reviewed, vital signs reviewed Telemetry Interpretation: sinus rhythm Diagnosis, Assessment Plan Plan discussed with: patient, family, collaborating MD, nurse Free Text DxA P Notes Free Text DxA P Notes: Cardiolgoy consultation for and MR on this 67 YO female with MHx of HTN, COPD , prior smoker, severe aortic valve stenosis and severe mitral valve regurgitation. She is being worked up for double valve surgery, incidentally found to have large abdominal pelvic mass therefore heart surgery was put on hold. She was evaluated by OBGYN and today patient had exploratory laparatomy and total abdominal hysterectomy with bilateral salpingo-oophorectomy. # Severe , severe MR * valve surgery after recovery from TAHBSO # Pelvic mass s/p TAHBSO * per OBGYN note - patient has right benign ovarian tumor # Hypertension * resume meds Appreciate the referral. MDM by Dr. Pham at 0906 at 1320 [facility] #:[id number] END OF REPORT [facility] 2023-01-28 12:45:00 [id number] [address] PATIENT NAME: SALINA LAFLEUR ADMIT DATE: 01/28/23 ACCOUNT NO: [id number] ROOM NO: M329 AGE: 67 REPORT TYPE: OPERATIVE REPORT SEX: F ADMITTING PHYSICIAN:Josi Wilkins MD ATTENDING PHYSICIAN:Josi Wilkins MD OPERATION DATE: 01/28/2023 PREOPERATIVE DIAGNOSIS: Large abdominal pelvic mass, right. POSTOPERATIVE DIAGNOSIS: Right benign ovarian tumor. PROCEDURE: Exploratory laparotomy and total abdominal hysterectomy with bilateral salpingo-oophorectomy. SURGEON: Josi Wilkins MD MASTER CONTROL TECHNICIAN: LORENA Ye. ANESTHESIA: General endotracheal. FINDINGS: The patient has been seen in the hospital and was admitted previously due to aortic stenosis. She was incidentally found to have a large 18 cm pelvic mass. The mass was come from the right adnexa. Frozen section returned as benign ovarian tumor. Peritoneal surfaces were smooth. She had several loops of bowel that were adherent to the anterior abdominal wall due to a large ventral mesh. Left ovary was grossly normal as was the uterus. PROCEDURE IN DETAIL: The patient was brought to the operating room after adequate level of general anesthesia was achieved. She was placed in dorsal lithotomy position, prepped and draped in usual sterile fashion. Exam under anesthesia was performed. She was noted to have a large pelvic mass measuring about 20 cm. Incision was made in vertical fashion and extended around the umbilicus. Abdominal cavity was entered sharply. Incision was extended both superiorly and inferiorly with care taken at location of bowel and bladder. There was a large mass present around the umbilicus and extending cephalad and laterally. There was a loop of small bowel that was carefully taken down off the mesh and some of the omentum as well and there was scant amount of fluid. This was retrieved and pelvic washings were also taken. The abdomen was explored. The above findings were noted. The mass was then evaluated and was not adherent to anything. The LigaSure was then used to identify the IP ligament, which was then cauterized and then transected. The uteroovarian ligament was identified. The right adnexal mass was then detached and it was delivered through the abdomen and sent to pathology. Mass was then removed and sent to pathology for frozen section. Awaiting frozen section, the abdomen was evaluated. No other abnormalities were noted. The bowel was then packed in the upper abdominal area. The Bookwalter retractor was placed. The retroperitoneal space on the right was then opened. The IP ligament was identified and higher up in the pelvic brim. It was then clamped, cut, and suture ligated. The PATIENT NAME: SALINA LAFLEUR mesosalpinx was released. The round ligament was identified, it was suture ligated and then transected. The retroperitoneal space on the left was then opened. The IP ligament was identified. A window was made below it. It was then cauterized with the LigaSure and then released. The round ligament was identified, suture ligated and then transected. The bladder was taken down anteriorly. Posterior peritoneum was then released. Uterine vessels were identified bilaterally. They were then clamped, cut, and suture ligated. Alternating bites with a straight clamp was then used to release the paracervical tissue, which was then cut and suture ligated. Curved clamps were placed at the base of the cervix and the cervix, uterus, left ovary and tube were then removed and sent to pathology for permanent section. The vaginal cuff was closed with interrupted 0 Vicryl sutures. Pelvis was irrigated. Good hemostasis was noted. Frozen section then returned as benign ovarian tumor. Vistaseal was then sprayed in the surgical bed. The bowel was placed in the pelvis. Seprafilm was placed underneath the incision. The fascia was then closed with 2 running sutures of Stratafix. Subcutaneous tissue was irrigated. Skin was closed with sd. Prevena wound VAC was then applied. There were no complications. She tolerated the procedure well and was brought to recovery room in stable condition. COUNTS: Correct x2. ESTIMATED BLOOD LOSS: 100. Dictated By: Josi Wilkins MD Date Dictated: 01/28/2023 12:45:17 Date Transcribed: 01/28/2023 13:28:51 TBP/BILLY Receipt ID: [id number] Authenticated by Josi Wilkins MD On 02/02/2023 11:44:07 AM at 1144 PATIENT NAME: SALINA LAFLEUR [facility] 2023-01-22 08:31:00 [facility] ([facility]) Pain Management Progress Note REPORT#:[id number] REPORT STATUS: Signed REPORT INITIALIZATION DATE:01/22/23 TIME: 830 PATIENT: SALINA LAFLEUR UNIT #: [id number] ROOM/BED: [place] [address] : 54 AGE: 67 SEX: F ATTEND: Stef Moore MD ADM AUTHOR: Raphael Ruano REPT SERVICE DT/TIME: 01/22/23830 * ALL edits or amendments must be made on the electronic/computer document * Subjective Chief complaint: Patient seen and examined. Chart/MAR reviewed. Patient pain still occurs, but the narcotic medications are appropriately relieving the pain and without side effects. Patient being seen for Abdominal pain, abdominal mass, constipation, depression, restless legs Patient is still requiring medications to help with managing current problems. Patient is requiring IV narcotics to help manage breakthrough pain No fever/chills, chest pain, orthopnea, nausea/vomiting, pruritus, or hallucinations. 14 point ROS undertaken unremarkable except as noted Objective General VS/I O: Vital Signs Date Temp Pulse Resp B/P B/P Mean Pulse Ox FiO2 01/21-01/22 36.5-37.0 56-84 - 106-141/53-63 0.0-90 95-100 Last Documented: Result Date Time Pulse Ox 100 01/22 703 B/P 121/59 01/22 703 B/P Mean 0.0 01/22 703 O2 Delivery Room air 01/22 703 Temp 36.5 01/22 703 Pulse 56 01/22 703 Resp 12 01/22 703 FiO2 96 01/20 1925 24 hour I O ending at 0700: 01/22 0700 01/21 1900 Intake Total 850 Output Total Balance 850 Intake, Oral 850 Number Voids 7 PATIENT WEIGHT: Weight (lb): 186 Weight (oz): 4.65 Weight (kg): 84.500 Medications: Active Meds + DC'd Last 24 Hrs Lactulose (LACTULOSE) 20 GM DAILY PRN PRN PO Thiamine HCl (THIAMINE HCL) 100 MG DAILY PO Chlordiazepoxide HCl (LIBRIUM) 25 MG Q6H PO (CKD) Hydrocodone Bitart/Acetaminophen (NORCO 5/325) 1 TAB Q4H PRN PRN PO Hydromorphone HCl (DILAUDID) 1 MG Q4H PRN PRN IV Budesonide (PULMICORT RESPULES) 0.25 MG RTBID INH Albuterol Sulfate (ALBUTEROL SULFATE) 2.5 MG RTQ6H NEB Escitalopram Oxalate (LEXAPRO) 10 MG DAILY PO Folic Acid (FOLIC ACID) 1 MG DAILY PO Losartan Potassium (COZAAR) 100 MG DAILY PO Multivitamins (TAB-A-KOREY) 1 TAB DAILY PO Thiamine HCl (THIAMINE HCL) 100 MG DAILY IV (DC) Ropinirole HCl (REQUIP) 2 MG TID PO Albuterol/Ipratropium (DUONEB) 3 ML RTQ6H PRN PRN NEB Lorazepam (ATIVAN) 1 MG Q6H PRN PRN IV Sodium Chloride (SODIUM CHLORIDE) 0 ASDIR PRN IV Acetaminophen (TYLENOL) 650 MG Q6H PRN PRN PO Physical Exam General appearance: alert, awake, oriented, no respiratory distress Head/eyes: atraumatic, EOMI, normocephalic, normal conjunctiva/sclera, PERRLA ENT: normal nose, normal pharynx, moist mucosal membranes Neck: full range of motion, no lymphadenopathy, supple/no meningismus Cardiovascular: regular rate Respiratory: clear to auscultation, no distress, symmetric expansion Abdomen: soft, non-tender, no distention, active bowel sounds in all quadrant. Extremities: moves all, no edema Neuro/TICK SEWER: no motor deficits, no sensory deficits, CNII-XII grossly intact Skin: dry, warm Psychiatry: normal affect Results Results: no new labs Diagnosis, Assessment Plan Free text A P: A/P: Patient is a 67-year-old female Past Medical History: COPD, depression, restless leg syndrome, hypertension, AVR /MVR Past Surgical History: left and right total knee arthroplasty Family History: noncontributory Social History: Former smoker Allergies: Bactrim Abdominal pain, abdominal mass -abdominal ultrasound, results pending -CT abdomen: Well-circumscribed large cystic lesion mainly in the midline at 18 cm in diameter. There appear be more solid components at the right adnexal level with another complex cystic component. 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 No significant free fluid seen for rupture -Tylenol 650 mg PO Q6H PRN, pain scale 1-3 -[place] 5/325 mg PO Q4H PRN, pain scale 4-10 -Dilaudid 1 mg IV Q4H PRN, pains scale 7-10, second line therapy -improving Constipation -We will monitor while utilizing opioid narcotic medications. -Adequate fluid intake also discussed. -DC Senna 8.6 mg PO BID -DC Lactulose 20 g daily PRN -Miralax 17 g daily -manageable Depression -Lexapro 10 mg PO daily Restless leg -Ropinirol 2 mg PO TID -managable Patient has failed conservative medical therapy. Patient will require monitoring while utilize narcotic medications for any adverse effects, and will adjust as needed Patient will require monitoring drug therapy for toxic effects Plan of care discussed with patient and nurse All diagnostics of last 24 hours been reviewed. Have reviewed other specialties notes. Risks versus benefits of opioid medications were reviewed to include, but not limited to respiratory depression, accidental overdose, altered mental status, sudden , constipation which could result in bowel obstruction, seizures, withdrawal, dependency addiction, risk for falls. Case discussed with Dr Gallagher whom agrees. [place] CAUSTIC STRENGTH INSPECTOR: Salina Lafleur 1955 Summary Total Prescriptions 3 Total Private Pay 0 Total Prescribers 3 Total Pharmacies 3 Narcotics (excluding Buprenorphine) Current MME/day 0.00 30 Day Avg MME/day 0.00 Current Qty 0 09/09/2022 09/09/2022 1 HYDROCODONE-ACETAMIN 7.5-[address] Egg [id number] [facility] (0260) 0 30.00 MME Medicare [place] 04/14/2022 04/14/2022 1 TRAMADOL HCL 50 MG TABLET 12.00 4 Ro Lamin [id number] [facility] ( 0311) 0 30.00 [place]ME [place] 05/22/2021 05/22/2021 2 ACETAMINOPHEN-COD #3 TABLET 30.00 7 Ch Veg [id number] [facility] ( 1910) 0 19.29 MME [place] Alfonzo Berta [address] [facility] [address] - Hugo Neal MD [address] [facility] [address] - Jonatan Garcia [address] [facility] [address] - [facility] [phone]) [address] [facility] [address] [phone] [facility] [phone] [facility] [address] [employer] (1910) [address] [facility] [address] at 1338 at 1501 RPT #:[id number] END OF REPORT [facility] 2023-01-22 06:00:00 [facility] ([facility]) Cardiothoracic Surgery Prog REPORT#:[id number] REPORT STATUS: Signed REPORT INITIALIZATION DATE:01/22/23 TIME: 06 PATIENT: SALINA LAFLEUR UNIT #: [id number] ROOM/BED: [place] [id number] : 54 AGE: 67 SEX: F ATTEND: Stef Moore MD ADM AUTHOR: Tamara Benavides Physic REPT SERVICE DT/TIME: 01/22/23 0600 * ALL edits or amendments must be made on the electronic/computer document * Subjective Chief complaint: Abdomina pain vomiting resolved, Abdominal mass. Review of Systems Constitutional: Denies: fever, generalized weakness. Skin: Denies: rash, swelling. Allergy/Immun: Denies: itching, rhinorrhea. Eyes: Denies: redness, discharge. ENT: Denies: ear ringing, earache. Respiratory: Reports: HILL (dyspnea on exertion). Denies: wheezing. Cardiovascular: Reports: HILL (dyspnea on exertion). Denies: edema. GI: Reports: abdominal pain. : Denies: hematuria. Musculoskeletal: Denies: joint pain, joint swelling. Heme: Denies: bleeding, bruising. Endocrine: Denies: polyuria. Neuro: Denies: confusion. Psych: Denies: anxiety. Objective General VS/I O Last Documented: Result Date Time Pulse Ox 99 01/22 311 B/P 115/57 01/22 311 B/P Mean 0.0 01/22 311 O2 Delivery Room air 01/22 311 Temp 97.7 01/22 311 Pulse 71 01/22 311 Resp 14 01/22 311 FiO2 96 01/20 1925 24 hour I O ending at 0700: 01/22 0700 01/21 1900 Intake Total 850 Output Total Balance 850 Intake, Oral 850 Number Voids 7 PATIENT WEIGHT: Weight (lb): 186 Weight (oz): 4.65 Weight (kg): 84.500 Physical Exam General appearance: alert, awake, oriented HEENT: mucosal membranes moist Neck: full range of motion, no masses or swelling Cardiovascular: BP/pulses equal bilat., regular rate rhythm Respiratory: aerating well, no distress Abdomen: tenderness Extremities: dry, moves all Neuro/TICK SEWER: alert, oriented X 3 Skin: dry, intact Diagnosis, Assessment Plan Hospital course to date: This Is a 67-year-old female with a past medical history of hypertension, hyperlipidemia, aortic valve stenosis, mitral regurgitation who presents today for evaluation for aortic valve replacement and mitral valve replacement. She reports she has increased shortness of breath for the past several months. She underwent full work[facility]up at [facility] with echocardiogram showing severe aortic valve stenosis with an HAILE 0.9 cm, peak gradient 37 mmHg, mean 60 mmHg. She underwent JAMES showing severe mitral regurgitation with systolic reversal pulmonary vein, with thickening of the aortic valve with masslike appearance. She underwent left heart catheterization at [facility] showing no significant coronary artery disease. she had an episode of vomiting and abdominal pain and therefore referred her to the ED. CT abdomen pelvis demonstrates well-circumscribed large cystic lesion in the midline likely cystadenoma or cystadenocarcinoma. General surgery has been consulted. Assessment: Newly diagnosed abdominal mass Eval for MVR/AVR 01/19/2023 Patient seen and evaluated by Dr. Lui. Clinically stable. Scheduling of MVR/AVR will be on hold at this time, pending medical/surgical optimization CV surgery will continue to follow from time to time. Please call if you have any questions or concerns 01/20/23 Paient resting comfortable Complains of lower abdominal pain. Denies chest pains Denies any further nausea or vomiting. Respiratory: On room air Cardiac: Remains sinus rhythm Gynecology/oncology consulted. General surgery consulted Surgery for MVR/AVR will be on hold at this time. We will consult cardiology for optimization Patient seen and examined Dr. Lui. Further recommendations to follow 01/21/23 Patient resting comfortable Complains of abdominal pain. Pain management consulted. Respiratory: On room air Cardiac: Remains sinus rhythm Gynecology/oncology consulted. Appreciate input Surgery for MVR/AVR on hold at this time until Abdominal mass is addressed. Cardiology following for medical optimization. Patient seen and examined Dr. Lui. 01/22/23 Patient resting comfortable Complains of abdominal pain. Pain management following. Respiratory: On room air Cardiac: Remains sinus rhythm Gynecology/oncology consulted. Plans for hysterectomy next week. Surgery for MVR/AVR on hold at this time until Abdominal mass is addressed. Cardiology following for medical optimization. Patient seen and examined Dr. Lui. Patient wishes to go home before hysterectomy. Okay from a CV standpoint to OR home for hysterectomy scheduled for next week at 1355 at 1652 RPT #:[id number] END OF REPORT [facility] 2023-01-21 21:56:00 [facility] Internal Medicine Prog. Note REPORT#:[id number] REPORT STATUS: Signed REPORT INITIALIZATION DATE:01/21/23 TIME: 2155 PATIENT: SALINA LAFLEUR UNIT #: [id number] ROOM/BED: [place] [address] : 54 AGE: 67 SEX: F ATTEND: Stef Moore MD ADM AUTHOR: Angeles Zarate NP REPT SERVICE DT/TIME: 01/21/232155 * ALL edits or amendments must be made on the electronic/computer document * Subjective Chief complaint: Altered mental status/UTI HPI: 75-year-old male with past medical history of hypertension, dyslipidemia, dementia, schizophrenia, Syncope, Chronic kidney disease, recurrent UTI with multidrug-resistant bacteria , bacteremia, presented to the emergency room via EMS from skilled care nursing facility with altered mental status.Patient is awake but unable to answer questions this history of present illness not fully completed. Admission vital signs: Blood pressure 108/58, pulse 70, respiration 15, temperature 36.3, O2 sat 96% on room air. Abnormal labs: Hemoglobin 9.6, hematocrit 30.2, platelet 465, sodium 148, chloride 112, alkaline phosphate 140, CK2 28, CT scan of the head/brain without contrast reveals interval removal of the right subdural drain For dominantly chronic right subdural hematoma with a small amount of acute to subacute hemorrhage as overall improved in size with improved midline shift now 3 mm. EKG reveals normal sinus rhythm, no STEMI Review of Systems Unable to obtain due to: Altered mental status Objective General VS/I O: Vital Signs Date Temp Pulse Resp B/P B/P Mean Pulse Ox FiO2 01/20-01/21 36.6-37.0 64-84 - 103-141/54-75 0.0-90 95-100 Last Documented: Result Date Time Pulse Ox 99 01/21 1843 Pulse 75 01/21 1843 Resp 28 01/21 1843 B/P 141/63 01/22 1836 B/P Mean 90 01/22 1836 O2 Delivery Room air 01/21 1814 Temp 37.0 01/21 1814 FiO2 96 01/20 192 24 hour I O ending at 0700: 01/21 0700 01/20 1900 Intake Total 400 Output Total Balance 400 Intake, Oral 400 Number Voids 3 2 Patient 84.5 kg Weight Weight Standing scale Measurement Method PATIENT WEIGHT: Weight (lb): 186 Weight (oz): 4.65 Weight (kg): 84.500 Medications: Active Meds + DC'd Last 24 Hrs Lactulose (LACTULOSE) 20 GM DAILY PRN PRN PO Thiamine HCl (THIAMINE HCL) 100 MG DAILY PO Chlordiazepoxide HCl (LIBRIUM) 25 MG Q6H PO (CKD) Hydrocodone Bitart/Acetaminophen (NORCO 5/325) 1 TAB Q4H PRN PRN PO Hydromorphone HCl (DILAUDID) 1 MG Q4H PRN PRN IV Budesonide (PULMICORT RESPULES) 0.25 MG RTBID INH Albuterol Sulfate (ALBUTEROL SULFATE) 2.5 MG RTQ6H NEB Escitalopram Oxalate (LEXAPRO) 10 MG DAILY PO Folic Acid (FOLIC ACID) 1 MG DAILY PO Losartan Potassium (COZAAR) 100 MG DAILY PO Multivitamins (TAB-A-KOREY) 1 TAB DAILY PO Thiamine HCl (THIAMINE HCL) 100 MG DAILY IV (DC) Ropinirole HCl (REQUIP) 2 MG TID PO Albuterol/Ipratropium (DUONEB) 3 ML RTQ6H PRN PRN NEB Lorazepam (ATIVAN) 1 MG Q6H PRN PRN IV Sodium Chloride (SODIUM CHLORIDE) 0 ASDIR PRN IV Acetaminophen (TYLENOL) 650 MG Q6H PRN PRN PO Diagnosis, Assessment Plan Hospital course to date: General appearance: alert, awake Neck: non-tender, no JVD Cardiovascular: regular rate rhythm Respiratory: decreased breath sounds, no distress, no tenderness, symmetric expansion Abdomen/GI: active bowel sounds, soft, non-tender, no guarding, no rebound, no distention, no mass/organomegaly, no pulsatile mass, no hernia, normal abdominal aorta Abdomen quadrants: LLQ normal bowel sounds, LUQ normal bowel sounds, RLQ normal bowel sounds, RUQ normal bowel sounds Extremities: moves all, no edema-all extremities, normal capillary refill, normal range of motion, normal sensory, normal motor function Neuro/TICK SEWER: disoriented, alert Skin: dry, ONYCHOMYCOSIS Psychiatry: unable to evaluate Free Text DxA P Notes Free text DxA P notes: Assessment: 75-year-old male with past medical history of hypertension, dyslipidemia, dementia, schizophrenia, Syncope, Chronic kidney disease, recurrent UTI with multidrug-resistant bacteria , bacteremia, presented to the emergency room via EMS from skilled care nursing facility with altered mental status.Patient is awake but unable to answer questions this history of present illness not fully completed. 1. Altered mental status 2. UTI ESBL 3. Recent bacteremia 4. Hypernatremia, hyperchloremia 5. Anemia 6. Elevated alkaline phosphate and CK 7. History of hypertension currently hypotensive 8. Dyslipidemia 9. Schizophrenia 10. Syncope 11. Chronic kidney disease Plan of care: Patient admitted for further evaluation and treatment Restart Merrem Consult ID IV fluids Monitor vital signs closely Telemetry Reconcile home medications hold antihypertensive meds DVT prophylaxis Lovenox Repeat labs Fall precaution Consult neurosurgery for evaluation of chronic subdural hematoma Further recommendation will be based on patient's clinical course 01/20/2023 Stable vital signs Noted results of the ultrasound of the pelvis. Cardio has seen the patient. Continue BP control-resume medications. Holding off any surgical intervention-awaiting pelvic mass work-up. CTS is following Consultants evaluations noted Started on Lexapro, albuterol, folic acid, losartan, multivitamins, Pulmicort, Librium Continue pain control per pain management RT management, continue telemetry monitoring Fall precaution Continue medications and supportive care at 2246 at 0917 RPT #:[id number] END OF REPORT [facility] 2023-01-21 20:15:00 [facility] ([facility] Cardiology Progress Note REPORT#:[id number] REPORT STATUS: Signed REPORT INITIALIZATION DATE:01/21/23 TIME: 2014 PATIENT: SALINA LAFLEUR UNIT #: [id number] ROOM/BED: [place] [address] : 54 AGE: 67 SEX: F ATTEND: Stef Moore MD ADM AUTHOR: Elisa Pham MD REPT SERVICE DT/TIME: 01/21/232014 * ALL edits or amendments must be made on the electronic/computer document * Subjective HPI: 67 YO female came to ED with acute abdominal pain, nausea and vomiting. CT showed large pelvic mass concerning for malignancy. 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 She has MHx of HTN, COPD, prior smoker, new findings of severe aortic valve stenosis and severe mitral valve regurgitation. She has been having exertional dyspnea and lower extremity edema which prompted cardiology evaluation. 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 Unfortunately patient had acute GI symptoms that landed her in the ED. She denies chest pain or SOB at this time. Free Text Subj Notes Free Text Subj Notes: Doing okay, no major issues overnight Objective General VS/I O: 24 hour I O ending at 0700: 01/21 0700 01/20 1900 Intake Total 400 Output Total Balance 400 Intake, Oral 400 Number Voids 3 2 Patient 84.5 kg Weight Weight Standing scale Measurement Method Vital Signs: Date Time Temp Pulse Resp B/P B/P Pulse O2 O2 Flow FiO2 Mean Ox Delivery Rate 01/21 1843 75 28 99 01/21 1836 71 20 141/63 90 100 01/21 1814 98.6 72 20 106/54 0.0 99 Room air 01/21 1813 72 23 106/54 77 99 01/21 1400 84 26 99 01/21 0917 98 Room air 01/21 0912 71 21 121/60 83 97 01/21 0815 98.6 66 24 135/61 85 99 01/21 0316 97.9 64 13 103/62 75.2 96 Room air 01/20 2314 98.4 82 13 117/75 88.7 95 Room air PATIENT WEIGHT: Weight (lb): 186 Weight (oz): 4.65 Weight (kg): 84.500 Medications: Active Meds + DC'd Last 24 Hrs Lactulose (LACTULOSE) 20 GM DAILY PRN PRN PO Thiamine HCl (THIAMINE HCL) 100 MG DAILY PO Chlordiazepoxide HCl (LIBRIUM) 25 MG Q6H PO (CKD) Hydrocodone Bitart/Acetaminophen (NORCO 5/325) 1 TAB Q4H PRN PRN PO Hydromorphone HCl (DILAUDID) 1 MG Q4H PRN PRN IV Budesonide (PULMICORT RESPULES) 0.25 MG RTBID INH Albuterol Sulfate (ALBUTEROL SULFATE) 2.5 MG RTQ6H NEB Escitalopram Oxalate (LEXAPRO) 10 MG DAILY PO Folic Acid (FOLIC ACID) 1 MG DAILY PO Losartan Potassium (COZAAR) 100 MG DAILY PO Multivitamins (TAB-A-KOREY) 1 TAB DAILY PO Thiamine HCl (THIAMINE HCL) 100 MG DAILY IV (DC) Ropinirole HCl (REQUIP) 2 MG TID PO Albuterol/Ipratropium (DUONEB) 3 ML RTQ6H PRN PRN NEB Lorazepam (ATIVAN) 1 MG Q6H PRN PRN IV Sodium Chloride (SODIUM CHLORIDE) 0 ASDIR PRN IV Acetaminophen (TYLENOL) 650 MG Q6H PRN PRN PO Physical Exam General appearance: alert, awake, oriented Neck: non-tender, no JVD Cardiovascular: CV assessment: regular rate and rhythm Murmur assessment: heart murmur Respiratory: decreased breath sounds, no distress Abdomen: soft, normal bowel sounds Genitourinary: no flank pain, no urinary catheter Lower extremity: LE assessment: no calf tenderness, no edema Musculoskeletal: normal inspection Neuro/TICK SEWER: alert, oriented X 3, normal speech Skin: dry, intact Psychiatry: normal affect, normal judgment/insight, normal mood Diagnosis, Assessment Plan Problem List/A P: 1. Aortic stenosis 2. Mitral valve regurgitation 3. Abdominal mass Free Text DxA P Notes Free Text DxA P Notes: 67 YO female came to ED with acute abdominal pain, nausea and vomiting. CT showed large pelvic mass concerning for malignancy. She has MHx of HTN, COPD, prior smoker, new findings of severe aortic valve stenosis and severe mitral valve regurgitation. She has been having exertional dyspnea and lower extremity edema which prompted cardiology evaluation. 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 Unfortunately patient had acute GI symptoms that landed her in the ED. # Pelvic mass concerning for malignancy * OB-BEVEL GEAR GENERATOR OPERATOR and surgery consulted * workup ongoing # Aortic valve stenosis and mitral valve regurgitation * CTS onboard, holding off on any surgical intervention pending outcome of pelvic mass workup. # Hypertension * resume BP meds F plan to discharge the patient okay to discharge from cardiac standpoint with planned surgical intervention to the pelvic mass at 2131 RPT #:[id number] END OF REPORT [facility] 2023-01-21 11:23:00 [facility] ([facility]) Pain Management Progress Note REPORT#:[id number] REPORT STATUS: Signed REPORT INITIALIZATION DATE:01/21/23 TIME: 1122 PATIENT: SALINA LAFLEUR UNIT #: [id number] ROOM/BED: [facility] : 54 AGE: 67 SEX: F ATTEND: Stef Moore MD ADM AUTHOR: Raphael Ruano REPT SERVICE DT/TIME: 01/21/23 1123 * ALL edits or amendments must be made on the electronic/computer document * Subjective Chief complaint: Patient seen and examined. Chart/MAR reviewed. Abdominal pain is improving. She is passing gas. Patient being seen for Abdominal pain, abdominal mass, constipation, depression, restless legs Patient is still requiring medications to help with managing current problems. Patient is requiring IV narcotics to help manage breakthrough pain No fever/chills, chest pain, orthopnea, nausea/vomiting, pruritus, or hallucinations. 14 point ROS undertaken unremarkable except as noted Objective General VS/I O: Vital Signs Date Temp Pulse Resp B/P B/P Mean Pulse Ox FiO2 01/20-01/21 36.6-37.0 64-84 - 103-141/54-75 0.0-90 95-100 Last Documented: Result Date Time Pulse Ox 99 01/21 1843 Pulse 75 01/21 184 Resp 28 01/21 1843 B/P 141/63 01/21 1836 B/P Mean 90 01/21 183 O2 Delivery Room air 01/21 1814 Temp 37.0 01/21 1814 FiO2 96 01/20 1925 24 hour I O ending at 0700: 01/21 0700 01/20 1900 Intake Total 400 Output Total Balance 400 Intake, Oral 400 Number Voids 3 2 Patient 84.5 kg Weight Weight Standing scale Measurement Method PATIENT WEIGHT: Weight (lb): 186 Weight (oz): 4.65 Weight (kg): 84.500 Medications: Active Meds + DC'd Last 24 Hrs Lactulose (LACTULOSE) 20 GM DAILY PRN PRN PO Thiamine HCl (THIAMINE HCL) 100 MG DAILY PO Chlordiazepoxide HCl (LIBRIUM) 25 MG Q6H PO (CKD) Hydrocodone Bitart/Acetaminophen (NORCO 5/325) 1 TAB Q4H PRN PRN PO Hydromorphone HCl (DILAUDID) 1 MG Q4H PRN PRN IV Budesonide (PULMICORT RESPULES) 0.25 MG RTBID INH Albuterol Sulfate (ALBUTEROL SULFATE) 2.5 MG RTQ6H NEB Escitalopram Oxalate (LEXAPRO) 10 MG DAILY PO Folic Acid (FOLIC ACID) 1 MG DAILY PO Losartan Potassium (COZAAR) 100 MG DAILY PO Multivitamins (TAB-A-KOREY) 1 TAB DAILY PO Thiamine HCl (THIAMINE HCL) 100 MG DAILY IV (DC) Ropinirole HCl (REQUIP) 2 MG TID PO Albuterol/Ipratropium (DUONEB) 3 ML RTQ6H PRN PRN NEB Lorazepam (ATIVAN) 1 MG Q6H PRN PRN IV Sodium Chloride (SODIUM CHLORIDE) 0 ASDIR PRN IV Acetaminophen (TYLENOL) 650 MG Q6H PRN PRN PO Physical Exam General appearance: alert, awake, oriented, conversational Head/eyes: atraumatic, EOMI, normocephalic, normal conjunctiva/sclera, PERRLA ENT: normal pharynx, moist mucosal membranes Neck: full range of motion, no lymphadenopathy, supple/no meningismus Cardiovascular: regular rate Respiratory: clear to auscultation, no distress Abdomen: soft, non-tender, no distention, active bowel sounds in all quadrant. Extremities: moves all, no edema Neuro/TICK SEWER: no motor deficits, no sensory deficits, CNII-XII grossly intact Skin: dry Psychiatry: normal affect Results Findings/data: Recent Impressions: CAT SCAN - CT ABD PELVIS W/CONT 01/19 1351 Report Impression - Status: SIGNED Entered: 01/19/2023 1443 IMPRESSION: Well-circumscribed large cystic lesion mainly in the midline at 18 cm in diameter. There appear be more solid components at the right adnexal level with another complex cystic component. 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 No significant free fluid seen for rupture. Trace free fluid at the left paracolic gutter. Diverticulosis of the sigmoid and left colon but no active inflammatory changes. Slight fullness of the main pancreatic duct may need correlation with pancreatic enzyme abnormalities. Single gallstone without cholecystitis findings Location: U19 Impression By: [email or web address] Ester Perez M.D. ULTRASOUND - US PELVIS COMPLETE 01/20 1458 Report Impression - Status: SIGNED Entered: 01/20/2023 1514 Impression: Large complex cystic mass with apparent internal vascularity concerning for a cystic neoplasm. Given its size, this is inadequately assessed on ultrasound exam, MR imaging with and without IV contrast is recommended for further assessment. The uterus and ovaries are obscured on this exam. Ovarian torsion cannot be excluded. Trace pelvic ascites. Impression By: [email or web address] Ester Houston M.D. Diagnosis, Assessment Plan Free text A P: A/P: Patient is a 67-year-old female Past Medical History: COPD, depression, restless leg syndrome, hypertension, AVR /MVR Past Surgical History: left and right total knee arthroplasty Family History: noncontributory Social History: Former smoker Allergies: Bactrim Abdominal pain, abdominal mass -abdominal ultrasound, results pending -CT abdomen: Well-circumscribed large cystic lesion mainly in the midline at 18 cm in diameter. There appear be more solid components at the right adnexal level with another complex cystic component. 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 No significant free fluid seen for rupture -Tylenol 650 mg PO Q6H PRN, pain scale 1-3 -[place] 5/325 mg PO Q4H PRN, pain scale 4-10 -Dilaudid 1 mg IV Q4H PRN, pains scale 7-10, second line therapy -improving Constipation -We will monitor while utilizing opioid narcotic medications. -Adequate fluid intake also discussed. -Miralax 17 g daily -Senna 8.6 mg PO BID -Lactulose 20 g daily PRN -manageable Depression -Lexapro 10 mg PO daily Restless leg -Ropinirol 2 mg PO TID -managable Patient has failed conservative medical therapy. Patient will require monitoring while utilize narcotic medications for any adverse effects, and will adjust as needed Patient will require monitoring drug therapy for toxic effects Plan of care discussed with patient and nurse All diagnostics of last 24 hours been reviewed. Have reviewed other specialties notes. Risks versus benefits of opioid medications were reviewed to include, but not limited to respiratory depression, accidental overdose, altered mental status, sudden , constipation which could result in bowel obstruction, seizures, withdrawal, dependency addiction, risk for falls. Case discussed with Dr Gallagher whom agrees. [place] CAUSTIC STRENGTH INSPECTOR: Salina Lafleur 1955 Summary Total Prescriptions 3 Total Private Pay 0 Total Prescribers 3 Total Pharmacies 3 Narcotics (excluding Buprenorphine) Current MME/day 0.00 30 Day Avg MME/day 0.00 Current Qty 0 09/09/2022 09/09/2022 1 HYDROCODONE-ACETAMIN 7.5-[address] Egg [id number] [facility] (8590) 0 30.00 MME Medicare [place] 04/14/2022 04/14/2022 1 TRAMADOL HCL 50 MG TABLET 12.00 4 Ro Lamin [id number] [facility] ( 310) 0 30.00 MME Medicare [place] 05/22/2021 05/22/2021 2 ACETAMINOPHEN-COD #3 TABLET 30.00 7 Ch Veg [id number] [facility] ( 1910) 0 19.29 MME Medicare [place] Alfonzo Aldana [address] [facility] [address] - Hugo Neal MD [address] [facility] [address] - Jonatan Garcia [address] [facility] [address] - [facility] [phone] [facility] [address] [facility] [phone] [facility] [address] [employer] [phone]) [phone] [facility] [address] at 1957 at 1506 RPT #:[id number] END OF REPORT [facility] 2023-01-21 10:15:00 [facility] ([facility]) Cardiothoracic Surgery Prog REPORT#:[id number] REPORT STATUS: Signed REPORT INITIALIZATION DATE:01/21/23 TIME: 1015 PATIENT: SALINA LAFLEUR UNIT #: [id number] ROOM/BED: [place] [address] : 54 AGE: 67 SEX: F ATTEND: Stef Moore MD ADM AUTHOR: Tamara Benavides Physic REPT SERVICE DT/TIME: 01/21/23 1015 * ALL edits or amendments must be made on the electronic/computer document * Subjective Chief complaint: Abdomina pain vomiting resolved, Abdominal mass. Review of Systems Constitutional: Denies: fever, generalized weakness. Skin: Denies: rash, swelling. Allergy/Immun: Denies: itching, rhinorrhea. Eyes: Denies: redness, discharge. ENT: Denies: ear ringing, earache. Respiratory: Reports: HLIL (dyspnea on exertion). Denies: wheezing. Cardiovascular: Reports: HILL (dyspnea on exertion). Denies: edema. GI: Reports: abdominal pain. : Denies: hematuria. Musculoskeletal: Denies: joint pain, joint swelling. Heme: Denies: bleeding, bruising. Endocrine: Denies: polyuria. Neuro: Denies: confusion. Psych: Denies: anxiety. Objective General VS/I O Last Documented: Result Date Time Pulse Ox 99 01/21 815 B/P 135/61 01/21 815 B/P Mean 85 01/21 815 Temp 98.6 01/21 815 Pulse 66 01/21 815 Resp 24 01/21 815 O2 Delivery Room air 01/22 316 FiO2 96 01/20 1925 24 hour I O ending at 0700: 01/21 0700 01/20 1900 Intake Total 400 Output Total Balance 400 Intake, Oral 400 Number Voids 3 2 Patient 84.5 kg Weight Weight Standing scale Measurement Method PATIENT WEIGHT: Weight (lb): 186 Weight (oz): 4.65 Weight (kg): 84.500 Physical Exam General appearance: alert, awake, oriented HEENT: mucosal membranes moist Neck: full range of motion, no masses or swelling Cardiovascular: BP/pulses equal bilat., regular rate rhythm Respiratory: aerating well, no distress Abdomen: tenderness Extremities: dry, moves all Neuro/TICK SEWER: alert, oriented X 3 Skin: dry, intact Diagnosis, Assessment Plan Hospital course to date: This Is a 67-year-old female with a past medical history of hypertension, hyperlipidemia, aortic valve stenosis, mitral regurgitation who presents today for evaluation for aortic valve replacement and mitral valve replacement. She reports she has increased shortness of breath for the past several months. She underwent full work-up [facility] with echocardiogram showing severe aortic valve stenosis with an HAILE 0.9 cm, peak gradient 37 mmHg, mean 60 mmHg. She underwent JAMES showing severe mitral regurgitation with systolic reversal pulmonary vein, with thickening of the aortic valve with masslike appearance. She underwent left heart catheterization at [facility] showing no significant coronary artery disease. she had an episode of vomiting and abdominal pain and therefore referred her to the ED. CT abdomen pelvis demonstrates well-circumscribed large cystic lesion in the midline likely cystadenoma or cystadenocarcinoma. General surgery has been consulted. Assessment: Newly diagnosed abdominal mass Eval for MVR/AVR 01/19/2023 Patient seen and evaluated by Dr. Lui. Clinically stable. Scheduling of MVR/AVR will be on hold at this time, pending medical/surgical optimization CV surgery will continue to follow from time to time. Please call if you have any questions or concerns 01/20/23 Paient resting comfortable Complains of lower abdominal pain. Denies chest pains Denies any further nausea or vomiting. Respiratory: On room air Cardiac: Remains sinus rhythm Gynecology/oncology consulted. General surgery consulted Surgery for MVR/AVR will be on hold at this time. We will consult cardiology for optimization Patient seen and examined Dr. Lui. Further recommendations to follow 01/21/23 Patient resting comfortable Complains of abdominal pain. Pain management consulted. Respiratory: On room air Cardiac: Remains sinus rhythm Gynecology/oncology consulted. Appreciate input Surgery for MVR/AVR on hold at this time until Abdominal mass is addressed. Cardiology following for medical optimization. Patient seen and examined Dr. Lui. at 1434 at 1652 RPT #:[id number] END OF REPORT [facility] 2023-01-21 09:24:00 [id number] [place] [address] PATIENT NAME: SALINA LAFLEUR ADMIT DATE: 01/19/23 ACCOUNT NO: [id number] ROOM NO: [id number] AGE: 67 REPORT TYPE: CONSULTATION REPORT SEX: F ADMITTING PHYSICIAN:Stef Moore MD ATTENDING PHYSICIAN:Stef Moore MD CONSULTATION DATE: 01/21/2023 DIAGNOSIS: Pelvic mass. HISTORY OF PRESENT ILLNESS: The patient is a 67-year-old woman who has a history of hypertension and cardiac problems. She was found to have severe aortic stenosis and valve problems and was told to come to the hospital. When she got here, she developed abdominal pain and a CT scan was done, this showed an 18.2 cm cystic mass in the pelvis. There was soft tissue density in the right aspect of the cystic lesion. There was no ascites, adenopathy or other masses. She had diverticulosis and there was a single gallstone without cholecystitis changes. There is slight fullness of the main pancreatic duct. The patient also had an episode of vomiting and diarrhea, these have subsided. She states that over the last 3 years, she has intentionally lost 60 pounds and has noted that her abdomen is not shrinking and is more protuberant. She has no vaginal bleeding, no blood in her urine or stool. No change in bladder habits. She also had a pelvic ultrasound, which showed a large complex cystic mass with internal vascularity. Ovaries and tubes were not seen on the exam. The patient has not had a hysterectomy. PAST MEDICAL HISTORY: Hypertension, hypercholesterolemia, mitral valve regurg, AVR, COPD. She does not wear oxygen at home. PAST SURGICAL HISTORY: D and C, abdominal hernia repair with mesh. 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 She has not taken any hormones. Pap smears have been normal. ALLERGIES: BACTRIM, WHICH CAUSES HIVES. MEDICATIONS: Hydrocodone, Pulmicort, vitamins, Cozaar, Lexapro, albuterol, Requip, nebulizer, Ativan, Zofran. SOCIAL HISTORY: She is a former smoker. She does not drink. She is not working. She is single and previously . FAMILY HISTORY: Father with prostate cancer. PHYSICAL EXAMINATION: GENERAL: Pleasant, well developed, well nourished, no distress, sitting in the bed comfortably. VITAL SIGNS: Temperature 98.6, pulse 66, respiratory rate 24, blood pressure 135/61. PATIENT NAME: SALINA LAFLEUR HEENT: No supraclavicular adenopathy or thyromegaly. Extraocular muscles are intact. HEART: Had a regular rate and rhythm. LUNGS: Clear. ABDOMEN: Protuberant, soft, nontender. No rebound. No ascites or hepatosplenomegaly. Groins had no adenopathy. EXTREMITIES: No edema. PELVIC: Limited to digital exam. Cervix was grossly normal as was the vagina. She had a mobile cystic mass in the abdomen extending to the umbilicus, smooth walled. No nodularity of the cul-de-sac. LABORATORY DATA: Showed a white count of 6, hemoglobin of 12.8, platelet count of 347. Sodium 137, potassium 3.7, chloride 101, bicarbonate 31, BUN 15, creatinine 0.6. LFTs were normal. ASSESSMENT AND PLAN: The patient with a cystic mass in the pelvis measuring slightly over 18 cm. There is approximately 20% chance it was malignant. There were no other worrisome features such as ascites or adenopathy. This has probably been there for a long time. It will need to be removed and an exploratory laparotomy, MELISSA-BSO, possible staging procedure will be what is required. She will need cardiac clearance. I can add her on for next as needed. Surgery will pose a risk given her aortic stenosis and valvular problems. Alternatively, this could be repaired and the mass could be removed later. However, she is having pain. She will need a bowel prep before surgery. Dictated By: Josi Wilkins MD Date Dictated: 01/21/2023 09:24:19 Date Transcribed: 01/21/2023 11:43:04 [facility] Receipt ID: [id number] Authenticated by Josi Wilkins MD On 01/25/2023 06:39:38 PM at 0639 PATIENT NAME: SALINA LAFLEUR [facility] 2023-01-20 21:51:00 [facility] Internal Medicine Prog. Note REPORT#:[id number] REPORT STATUS: Signed REPORT INITIALIZATION DATE:01/20/23 TIME: 2150 PATIENT: SALINA LAFLEUR UNIT #: [id number] ROOM/BED: [place] [address] : 54 AGE: 67 SEX: F ATTEND: Stef Moore MD ADM AUTHOR: Angeles Zarate NP REPT SERVICE DT/TIME: 01/20/232150 * ALL edits or amendments must be made on the electronic/computer document * Subjective Chief complaint: Altered mental status/UTI HPI: 75-year-old male with past medical history of hypertension, dyslipidemia, dementia, schizophrenia, Syncope, Chronic kidney disease, recurrent UTI with multidrug-resistant bacteria , bacteremia, presented to the emergency room via EMS from [facility] with altered mental status.Patient is awake but unable to answer questions this history of present illness not fully completed. Admission vital signs: Blood pressure 108/58, pulse 70, respiration 15, temperature 36.3, O2 sat 96% on room air. Abnormal labs: Hemoglobin 9.6, hematocrit 30.2, platelet 465, sodium 148, chloride 112, alkaline phosphate 140, CK2 28, CT scan of the head/brain without contrast reveals interval removal of the right subdural drain For dominantly chronic right subdural hematoma with a small amount of acute to subacute hemorrhage as overall improved in size with improved midline shift now 3 mm. EKG reveals normal sinus rhythm, no STEMI Review of Systems Unable to obtain due to: Altered mental status Objective General VS/I O: Vital Signs Date Temp Pulse Resp B/P B/P Mean Pulse Ox FiO2 01/19-01/20 36.5-36.9 54-76 13-19 120-136/56-80 0.0-96.1 92-99 96 Last Documented: Result Date Time FiO2 96 01/20 1925 O2 Delivery Room air 01/20 1925 Pulse Ox 92 01/21 1824 B/P 129/80 01/21 1824 B/P Mean 96.1 01/21 1824 Temp 36.9 01/21 1824 Pulse 74 01/21 1824 Resp 13 01/21 1824 24 hour I O ending at 0700: 01/20 0700 01/19 1900 Intake Total Output Total Balance Output, Emesis Patient 84.3 kg 83.636 kg Weight Weight Standing scale Stated/Reported Measurement Method PATIENT WEIGHT: Weight (lb): 185 Weight (oz): 13.59 Weight (kg): 84.300 Medications: Active Meds + DC'd Last 24 Hrs Chlordiazepoxide HCl (LIBRIUM) 25 MG Q6H PO (CKD) Hydrocodone Bitart/Acetaminophen (NORCO 5/325) 1 TAB Q4H PRN PRN PO Hydromorphone HCl (DILAUDID) 1 MG Q4H PRN PRN IV Oxycodone/Acetaminophen (PERCOCET 7.5/325MG TAB) 1 TAB Q4H PRN PRN PO ( DC) Budesonide (PULMICORT RESPULES) 0.25 MG RTBID INH Albuterol Sulfate (ALBUTEROL SULFATE) 2.5 MG RTQ6H NEB Escitalopram Oxalate (LEXAPRO) 10 MG DAILY PO Folic Acid (FOLIC ACID) 1 MG DAILY PO Losartan Potassium (COZAAR) 100 MG DAILY PO Multivitamins (TAB-A-KOREY) 1 TAB DAILY PO Thiamine HCl (THIAMINE HCL) 100 MG DAILY IV Morphine Sulfate (morphine SULFATE) 4 MG ONCE ONE IV (DC) Ropinirole HCl (REQUIP) 2 MG TID PO Albuterol/Ipratropium (DUONEB) 3 ML RTQ6H PRN PRN NEB Lorazepam (ATIVAN) 1 MG Q6H PRN PRN IV Multivitamins (MULTIVITAMIN W/VIT K VIAL) 10 ML Q24H IV (DC) Sodium Chloride (SODIUM CHLORIDE 0.9%) 1,000 ML Sodium Chloride (SODIUM CHLORIDE) 0 ASDIR PRN IV Acetaminophen (TYLENOL) 650 MG Q6H PRN PRN PO Ondansetron HCl (ZOFRAN) 4 MG X1ED PRN PRN IV (DC) Results Findings/Data: Laboratory Tests 01/20 114 Chemistry GGT (5 - 85 UNITS/L) 22 Laboratory Tests 01/20 114 Toxicology Ethyl Alcohol (<10 mg/dL) < 3.0 Radiology data: Recent Impressions: ULTRASOUND - US PELVIS COMPLETE 01/20 1458 Report Impression - Status: SIGNED Entered: 01/20/2023 9256 Impression: Large complex cystic mass with apparent internal vascularity concerning for a cystic neoplasm. Given its size, this is inadequately assessed on ultrasound exam, MR imaging with and without IV contrast is recommended for further assessment. The uterus and ovaries are obscured on this exam. Ovarian torsion cannot be excluded. Trace pelvic ascites. Impression By: [email or web address] - Enrique Houston M.D. Diagnosis, Assessment Plan Hospital course to date: General appearance: alert, awake Neck: non-tender, no JVD Cardiovascular: regular rate rhythm Respiratory: decreased breath sounds, no distress, no tenderness, symmetric expansion Abdomen/GI: active bowel sounds, soft, non-tender, no guarding, no rebound, no distention, no mass/organomegaly, no pulsatile mass, no hernia, normal abdominal aorta Abdomen quadrants: LLQ normal bowel sounds, LUQ normal bowel sounds, RLQ normal bowel sounds, RUQ normal bowel sounds Extremities: moves all, no edema-all extremities, normal capillary refill, normal range of motion, normal sensory, normal motor function Neuro/TICK SEWER: disoriented, alert Skin: dry, ONYCHOMYCOSIS Psychiatry: unable to evaluate Free Text DxA P Notes Free text DxA P notes: Assessment: 75-year-old male with past medical history of hypertension, dyslipidemia, dementia, schizophrenia, Syncope, Chronic kidney disease, recurrent UTI with multidrug-resistant bacteria , bacteremia, presented to the emergency room via EMS from skilled care nursing facility with altered mental status.Patient is awake but unable to answer questions this history of present illness not fully completed. 1. Altered mental status 2. UTI ESBL 3. Recent bacteremia 4. Hypernatremia, hyperchloremia 5. Anemia 6. Elevated alkaline phosphate and CK 7. History of hypertension currently hypotensive 8. Dyslipidemia 9. Schizophrenia 10. Syncope 11. Chronic kidney disease Plan of care: Patient admitted for further evaluation and treatment Restart Merrem Consult ID IV fluids Monitor vital signs closely Telemetry Reconcile home medications hold antihypertensive meds DVT prophylaxis Lovenox Repeat labs Fall precaution Consult neurosurgery for evaluation of chronic subdural hematoma Further recommendation will be based on patient's clinical course at 2216 at 0959 RPT #:[id number] END OF REPORT [facility] 2023-01-20 19:23:00 [facility] General Surgery Progress Note REPORT#:[id number] REPORT STATUS: Signed REPORT INITIALIZATION DATE:01/20/23 TIME: 1922 PATIENT: SALINA LAFLEUR UNIT #: [id number] ROOM/BED: [place] [address] : 54 AGE: 67 SEX: F ATTEND: Stef Moore MD ADM AUTHOR: Dru Benoit REPT SERVICE DT/TIME: 01/20/231922 * ALL edits or amendments must be made on the electronic/computer document * Dru Benoit 01/20/231922: Subjective Chief complaint: mild abdominal pain HPI: No acute events overnight. Patient reports only mild abdominal pain without nausea or vomiting today. Transvaginal ultrasound was not completed but a transabdominal ultrasound was completed which showed a cystic mass intra- abdominal. Review of Systems Constitutional: Denies: fever. GI: Reports: abdominal pain. Denies: constipation, diarrhea, nausea, vomiting. Free Text ROS Notes Free Text ROS Notes: Review of systems: As above; otherwise, negative to include neurologic, eyes, ENT, CV, respiratory, GI, musculoskeletal, , skin, psychiatric, hematologic, and allergy. Objective Results Results: labs reviewed, vital signs reviewed, vital signs stable, US results reviewed, current med profile rev'd Free Text Obj Notes Free Text Obj Notes: Physical Exam Constitutional: Patient appears awake, alert, no acute distress, HR, BP, Saturation reviewed in records. Eyes: pupils equal, round, reactive to light, no icterus, EOMI HENT: normal cephalic, atraumatic, no facial tenderness or crepitus, normal external inspection of ears/nose, no septal hematoma. Neck: trachea midline, no crepitus, thyroid without mass CV: regular rate, rhythm, bilateral radial pulses 2+, no cyanosis, no edema, no pulsatile abdominal mass Respiratory: lungs clear bilaterally, respirations even and unlabored, no tenderness to palpation, normal inspection of chest, no crepitus Abdomen: soft, non-tender, distended, no hernia noted : normal external genitalia, pelvis stable Lymph nodes: no cervical or supraclavicular masses noted Musculoskeletal: -bilateral upper extremity without focal tenderness, without deformity, with ROM intact -bilateral lower extremity without focal tenderness, without deformity, with ROM intact Skin: no lacerations or abrasions noted, skin warm to palpation. Psychiatric: normal mood and affect, memory intact. Neurologic: face symmetrical. GCS 15. Bilateral upper and lower extremity sensation intact Labs and images also reviewed personally. Diagnosis, Assessment Plan Hospital course to date: 01/20: Surgical oncology has agreed to take over surgical services for this patient given the complexity of the intra-abdominal mass. Agree with current plan by hospitalist. General surgery signing off this time. Please feel free to contact us with any further questions or concerns. Free Text A P: Active Problems: Intra-abdominal mass Cystic lesion, intra-abdominal Resolved Problems: n/a Incidental findings: n/a DVT prophylaxis: SCDs, Lovenox GI prophylaxis: diet Lines/Garcia/ETT (placement dates: PIV Consultants: Procedures: n/a Plan: Vaginal ultrasound pending Recommend OBGYN and surg onc consult Regular diet ok from surgery standpoint Ok to proceed with cardiac procedures/surgery from surgery standpoint F/u imaging reviewed, further plan per surgical onc Diet: regular diet ok Labs: AM PT/OT recs: pending DME: recs pending Code status: Full code Medical Decision Making: In the event the patient is incapacitated and not able to make their own medical decisions, they have elected , contact number , to make medical decisions for them. Dispo: Case mgmt consulted, will continue to monitor for ICU criteria in the setting of trauma Quality: Trauma Gen Surg Advanced Care Plan 65 or Older Discussed with: patient Current Medications Current medication review: I attest that the foregoing medication list in the medical record is true, accurate, and complete to the best of my knowledge. VTE Prophylaxis - General VTE prophylaxis initiated: yes Dimas Rapp 01/30/23 1723: Attestations Attestation needed: supervising physician Physician Attestation Agree w/findings plan: I was present with the APC during the history and examination. I discussed the case with the APC and agree with the findings and plan as documented in the APC' s note. Patient seen and examined, agree with above exam findings. Plan: No surgical intervention warranted from our perspective. Thank you for allowing us to participate in the care of this patient. No further interventions warranted. We will sign off at this time, please do not hesitate to contact for any questions or concerns. Labs reviewed. Pertinent imaging personally reviewed. Discussed plan with other members of the healthcare team. at 1550 at 2876 RPT #:[id number] END OF REPORT [facility] 2023-01-20 16:13:00 [facility] ([facility]) Pain Management Consult Note REPORT#:[id number] REPORT STATUS: Signed REPORT INITIALIZATION DATE:01/20/23 TIME: 1612 PATIENT: SALINA LAFLEUR UNIT #: [id number] ROOM/BED: [place] [address] : 54 AGE: 67 SEX: F ATTEND: Stef Moore MD ADM AUTHOR: Raphael Ruano REPT SERVICE DT/TIME: 01/20/23 161 * ALL edits or amendments must be made on the electronic/computer document * History of Present Illness Primary Care Physician: Stef Martins MD HPI: Patient came in with abdominal pain that started two days ago. Pain is described as a fullness, moderate intensity, no worsening or alleviating factors. She has been found to have 18 cm mass. Work up in progress. Review of Systems Additional notes: 14 point ROS undertaken unremarkable except as noted in HPI, past medical and surgical history History Past History Medications: Home Medications: Medication Dose/Rte/Freq Days Qty Entered Last Max Daily Dose Reviewed rOPINIRole (REQUIP) 2 MG PO TID 10/16/13 01/19/23 Strength: 0.25 MG TAB 182 182 BUDESONIDE/FORMOTEROL 2 PUFF INH BID 01/19/23 01/19/23 FUMARATE 182 182 (SYMBICORT 80/4.5 MCG/ACT) Strength: 80 MCG-4.5 MCG/ACTUATION INHALER LOSARTAN (COZAAR) 100 MG PO DAILY 10/16/13 01/19/23 Strength: 100 MG TAB 1821 1821 ESCITALOPRAM (LEXAPRO) 10 MG PO DAILY 10/16/13 01/19/23 Strength: 10 MG TAB 1821 1821 Current Hospital Medications: Autonomic Drugs Sig/Abdias Start time Last Medication Dose Route Stop Time Status Admin Albuterol Sulfate 2.5 MG RTQ6H 01/20 09 AC 01/20 (ALBUTEROL SULFATE) NEB 04/20 Albuterol/Ipratropium 3 ML RTQ6H PRN PRN 01/19 2115 AC (DUONEB) NEB 04/19 2113 Cardiovascular Drugs Sig/Abdias Start time Last Medication Dose Route Stop Time Status Admin Losartan Potassium 100 MG DAILY 01/20 09 AC 01/20 (COZAAR) PO 01/23 0859 0850 Central Nervous System Agents Sig/Abdias Start time Last Medication Dose Route Stop Time Status Admin Chlordiazepoxide HCl 25 MG Q6H 01/20 2200 CKD (LIBRIUM) PO 04/20 2158 Hydromorphone HCl 1 MG Q4H PRN PRN 01/20 1130 AC (DILAUDID) IV Oxycodone/ 1 TAB Q4H PRN PRN 01/20 1130 AC 01/20 Acetaminophen PO 01/21 1000 1508 (PERCOCET 7.5/325MG TAB) Escitalopram Oxalate 10 MG DAILY 01/20 09 AC 01/20 (LEXAPRO) PO 04/20 0859 0851 Morphine Sulfate 4 MG ONCE ONE 01/19 2300 DC 01/19 (morphine SULFATE) IV 01/19 2301 2257 Ropinirole HCl 2 MG TID 01/19 2130 AC 01/20 (REQUIP) PO 04/19 2128 1507 Lorazepam 1 MG Q6H PRN PRN 01/19 2030 AC (ATIVAN) IV Acetaminophen 650 MG Q6H PRN PRN 01/19 2015 AC 01/20 (TYLENOL) PO 04/19 2013 0850 Electrolytic, Caloric, And Holly Sig/Abdias Start time Last Medication Dose Route Stop Time Status Admin Sodium Chloride 0 ASDIR PRN 01/19 2030 AC (SODIUM CHLORIDE) IV 04/19 2028 Eye, Ear, Nose And Throat (Een Sig/Abdias Start time Last Medication Dose Route Stop Time Status Admin Budesonide 0.25 MG RTBID 01/20 1000 AC 01/20 (PULMICORT RESPULES) INH 04/20 0959 0800 Gastrointestinal Drugs Sig/Abdias Start time Last Medication Dose Route Stop Time Status Admin Ondansetron HCl 4 MG X1ED PRN PRN 01/19 1145 DC (ZOFRAN) IV 01/20 1144 Vitamins Sig/Abdias Start time Last Medication Dose Route Stop Time Status Admin Folic Acid 1 MG DAILY 01/20 900 AC 01/20 (FOLIC ACID) PO 04/20 0859 0851 Multivitamins 1 TAB DAILY 01/20 09 AC 01/20 (TAB-A-KOREY) PO 04/20 0859 0849 Thiamine HCl 100 MG DAILY 01/20 900 AC 01/20 (THIAMINE HCL) IV 01/24 0859 0852 Multivitamins 10 ML Q24H 01/19 2030 DC 01/19 (MULTIVITAMIN W/VIT IV 01/20 0635 2200 K VIAL) Sodium Chloride 1,000 ML (SODIUM CHLORIDE 0.9%) Allergies: Coded Allergies: sulfamethoxazole (From BACTRIM) (Mild, HIVES 01/20/23) trimethoprim (From BACTRIM) (Mild, HIVES 01/20/23) Objective Physical Exam VS/I O: Last Documented: Result Date Time Pulse Ox 98 01/20 1127 B/P 128/63 01/20 1127 B/P Mean 84 01/20 1127 Temp 36.9 01/20 1127 Pulse 76 01/20 1127 Resp 19 01/20 1127 O2 Delivery Room air 01/20 0800 24 hour I O ending at 0700: 01/20 0700 01/19 1900 Intake Total Output Total Balance Output, Emesis Patient 84.3 kg 83.636 kg Weight Weight Standing scale Stated/Reported Measurement Method PATIENT WEIGHT: Weight (lb): 185 Weight (oz): 13.59 Weight (kg): 84.300 General appearance: alert, awake, oriented, pleasant Head/eyes: atraumatic, EOMI, normocephalic, normal conjunctiva/sclera, PERRLA ENT: normal pharynx, moist mucosal membranes Neck: full range of motion, no lymphadenopathy, supple/no meningismus Cardiovascular: regular rate Respiratory: clear to auscultation, no distress Abdomen: soft, non-tender, no distention, active bowel sounds in all quadrant. Extremities: moves all, no edema Neuro/TICK SEWER: no motor deficits, no sensory deficits, CNII-XII grossly intact Results Findings/data: Laboratory Tests: 01/20 0114 Chemistry GGT (5 - 85 UNITS/L) 22 Toxicology Ethyl Alcohol (<10 mg/dL) < 3.0 Recent Impressions: ULTRASOUND - US PELVIS COMPLETE 01/20 1458 Report Impression - Status: SIGNED Entered: 01/20/2023 1517 Impression: Large complex cystic mass with apparent internal vascularity concerning for a cystic neoplasm. Given its size, this is inadequately assessed on ultrasound exam, MR imaging with and without IV contrast is recommended for further assessment. The uterus and ovaries are obscured on this exam. Ovarian torsion cannot be excluded. Trace pelvic ascites. Impression By: [email or web address] - Enrique Houston M.D. Diagnosis, Assessment Plan Free text A P: A/P: Patient is a 67-year-old female Past Medical History: COPD, depression, restless leg syndrome, hypertension, AVR /MVR Past Surgical History: left and right total knee arthroplasty Family History: noncontributory Social History: Former smoker Allergies: Bactrim Abdominal pain, abdominal mass -abdominal ultrasound, results pending -CT abdomen: Well-circumscribed large cystic lesion mainly in the midline at 18 cm in diameter. There appear be more solid components at the right adnexal level with another complex cystic component. 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 No significant free fluid seen for rupture -Tylenol 650 mg PO Q6H PRN, pain scale 1-3 -[place] 5/325 mg PO Q4H PRN, pain scale 4-10 -Dilaudid 1 mg IV Q4H PRN, pains scale 7-10 Constipation -We will monitor while utilizing opioid narcotic medications. -Adequate fluid intake also discussed. -Miralax 17 g daily -Senna 8.6 mg PO BID Depression -Lexapro 10 mg PO daily Restless leg -Ropinirol 2 mg PO TID Patient has failed conservative medical therapy. Patient will require monitoring while utilize narcotic medications for any adverse effects, and will adjust as needed Patient will require monitoring drug therapy for toxic effects Plan of care discussed with patient and nurse All diagnostics of last 24 hours been reviewed. Have reviewed other specialties notes. Risks versus benefits of opioid medications were reviewed to include, but not limited to respiratory depression, accidental overdose, altered mental status, sudden , constipation which could result in bowel obstruction, seizures, withdrawal, dependency addiction, risk for falls. Case discussed with Dr Gallagher whom agrees. Thank you for the consultation. [place] CAUSTIC STRENGTH INSPECTOR: Salina Lafleur 1955 Summary Total Prescriptions 3 Total Private Pay 0 Total Prescribers 3 Total Pharmacies 3 Narcotics (excluding Buprenorphine) Current MME/day 0.00 30 Day Avg MME/day 0.00 Current Qty 0 09/09/2022 09/09/2022 1 HYDROCODONE-ACETAMIN 7.5-[address] Egg [id number] [facility] (0260) 0 30.00 MME Medicare [place] 04/14/2022 04/14/2022 1 TRAMADOL HCL 50 MG TABLET 12.00 4 Ro Lamin [id number] [facility] ( 1) 0 30.00 MME [place] 05/22/2021 05/22/2021 2 ACETAMINOPHEN-COD #3 TABLET 30.00 7 Ch Veg [id number] [facility] ( 1910) 0 19.29 MME Medicare [place] Alfonzo Berta Aldana [address] [facility] [address] - Hugo Neal MD [address] [facility] [address] - Jonatan Garcia [address] [facility] [address] - [facility] [phone]) [phone] [facility] [address] [phone] [facility] [phone] [facility] [id number] [facility] (1910[facility] [address] [facility] [address] at [phone] at [phone] RPT #:[id number] END OF REPORT [facility] 2023-01-20 11:39:00 [facility] ([facility]) Cardiology Consultation REPORT#:[id number] REPORT STATUS: Signed REPORT INITIALIZATION DATE:01/20/23 TIME: 1138 PATIENT: SALINA LAFLEUR UNIT #: [id number] ROOM/BED: [place] [address] : 54 AGE: 67 SEX: F ATTEND: Stef Moore MD ADM AUTHOR: Kait Cantu AGACNP REPT SERVICE DT/TIME: 01/20/23 1139 * ALL edits or amendments must be made on the electronic/computer document * History of Present Illness HPI Requesting Clinician: Dr. Lui Reason for consult: Aortic stenosis and mitral valve regurgitation Chief complaint: Abdominal pain PCP: PCP: Vijay Woodruff MD HPI: 67 YO female came to ED with acute abdominal pain, nausea and vomiting. CT showed large pelvic mass concerning for malignancy. 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 She has MHx of HTN, COPD, prior smoker, new findings of severe aortic valve stenosis and severe mitral valve regurgitation. She has been having exertional dyspnea and lower extremity edema which prompted cardiology evaluation. 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 Unfortunately patient had acute GI symptoms that landed her in the ED. She denies chest pain or SOB at this time. Hx Obtained From Patient, Prior medical records History - Adult longitudinal Additional medical history: 1. HTN 2. COPD 3. Severe 4. Severe MR Additional surgical history: 1. LHC - no CAD 2. JAMES - severe MR, Severe 3. Hip surgery Alcohol use: Denies EtOH use Drug use: Denies recreational drugs Smoking status for patients 13 years old or older: Former Smoker Date last smoked: 03/29/12 Home medications: Home Medications: rOPINIRole (REQUIP) 2 MG PO TID BUDESONIDE/FORMOTEROL FUMARATE (SYMBICORT 80/4.5 MCG/ACT) 2 PUFF INH BID LOSARTAN (COZAAR) 100 MG PO DAILY ESCITALOPRAM (LEXAPRO) 10 MG PO DAILY Allergies: Coded Allergies: sulfamethoxazole (From BACTRIM) (Mild, HIVES 01/20/23) trimethoprim (From BACTRIM) (Mild, HIVES 01/20/23) Ambulatory status: Independent Review of Systems Additional notes: As stated in HPI Objective General VS/I O: Vital Signs: Date Time Temp Pulse Resp B/P B/P Pulse O2 O2 Flow FiO2 Mean Ox Delivery Rate 01/20 1127 36.9 76 19 128/63 84 98 01/20 0800 Room air 01/20 0754 36.5 54 19 136/65 0.0 99 Nasal cannula 01/20 0452 36.8 64 17 120/56 0.0 98 Room air 01/20 0012 36.5 57 15 131/61 0.0 99 Room air 01/19 2319 36.8 67 14 120/68 85.7 95 Room air 01/19 1924 37.2 76 14 149/74 99.1 98 Room air 01/19 1753 37.3 57 22 150/82 104.8 100 Room air 24 hour I O ending at 0700: 01/20 0700 01/19 1900 Intake Total Output Total Balance Output, Emesis Patient 84.3 kg 83.636 kg Weight Weight Standing scale Stated/Reported Measurement Method PATIENT WEIGHT: Weight (lb): 185 Weight (oz): 13.59 Weight (kg): 84.300 Medications: Active Meds + DC'd Last 24 Hrs Chlordiazepoxide HCl (LIBRIUM) 25 MG Q6H PO (CKD) Hydromorphone HCl (DILAUDID) 1 MG Q4H PRN PRN IV (UNV) Oxycodone/Acetaminophen (PERCOCET 7.5/325MG TAB) 1 TAB Q4H PRN PRN PO ( UNV) Budesonide (PULMICORT RESPULES) 0.25 MG RTBID INH Albuterol Sulfate (ALBUTEROL SULFATE) 2.5 MG RTQ6H NEB Escitalopram Oxalate (LEXAPRO) 10 MG DAILY PO Folic Acid (FOLIC ACID) 1 MG DAILY PO Losartan Potassium (COZAAR) 100 MG DAILY PO Multivitamins (TAB-A-KOREY) 1 TAB DAILY PO Thiamine HCl (THIAMINE HCL) 100 MG DAILY IV Morphine Sulfate (morphine SULFATE) 4 MG ONCE ONE IV (DC) Ropinirole HCl (REQUIP) 2 MG TID PO Albuterol/Ipratropium (DUONEB) 3 ML RTQ6H PRN PRN NEB Lorazepam (ATIVAN) 1 MG Q6H PRN PRN IV Multivitamins (MULTIVITAMIN W/VIT K VIAL) 10 ML Q24H IV (DC) Sodium Chloride (SODIUM CHLORIDE 0.9%) 1,000 ML Sodium Chloride (SODIUM CHLORIDE) 0 ASDIR PRN IV Acetaminophen (TYLENOL) 650 MG Q6H PRN PRN PO Acetaminophen (TYLENOL EXTRA STRENGTH) 1,000 MG X1ED STA PO (DC) Ondansetron HCl (ZOFRAN) 4 MG X1ED PRN PRN IV Sodium Chloride (SODIUM CHLORIDE 0.9%) 1,000 ML X1ED STA IV (DC) Physical Exam General appearance: alert, awake Neck: non-tender, no JVD Cardiovascular: CV assessment: regular rate and rhythm Murmur assessment: heart murmur Respiratory: decreased breath sounds, no distress Abdomen: soft, normal bowel sounds Genitourinary: no flank pain, no urinary catheter Lower extremity: LE assessment: no calf tenderness, no edema Musculoskeletal: normal inspection Neuro/TICK SEWER: alert, oriented X 3, normal speech Skin: dry, intact Psychiatry: normal affect, normal judgment/insight, normal mood Results Findings/Data: Laboratory Tests 01/20 01/19 0114 1244 Chemistry Sodium (134 - 147 mEq/L) 137 Potassium (3.4 - 5.0 mEq/L) 3.7 Chloride (100 - 108 mEq/L) 101 Carbon Dioxide (21 - 33 mEq/l) 31 Anion Gap (0 - 20) 9 BUN (7 - 25 mg/dL) 15 Creatinine (0.6 - 1.3 mg/dL) 0.6 Glomerular Filtr Rate (80 - 90) 97.7 H Glucose (77 - 141 mg/dL) 117 Calcium (8.0 - 10.5 mg/dL) 9.6 Total Bilirubin (0.0 - 1.0 mg/dL) 0.60 Direct Bilirubin (0.1 - 0.3 MG/DL) 0.20 Indirect Bilirubin (MG/DL) 0.40 GGT (5 - 85 UNITS/L) 22 AST (8 - 34 IUnit/L) 25 ALT (10 - 49 IUnit/L) 14 Total Alk Phosphatase (20 - 125 IUnit/L) 79 Troponin I High Sens (0 - 34 ng/L) 22 Total Protein (6.4 - 8.2 g/dL) 7.2 Albumin (3.4 - 5.0 g/dL) 4.00 Lipase (13 - 57 U/L) 34 Laboratory Tests 01/19 1244 Hematology WBC (4.5 - 11.0 x10 3/uL) 6.3 RBC (3.54 - 5.02 x10 6/uL) 4.13 Hgb (11.0 - 15.0 g/dL) 12.8 Hct (33.0 - 45.0 %) 39.7 MCV (81.0 - 99.0 fL) 96.1 MCH (27.0 - 33.0 pg) 31.0 MCHC (33.0 - 37.0 g/dL) 32.2 L RDW (11.5 - 14.5 %) 15.4 H Plt Count (150 - 400 x10 3/uL) 347 MPV (7.0 - 9.0 fL) 8.8 Neut % (Auto) (56.0 - 77.0 %) 79.7 H Lymph % (Auto) (14.0 - 32.0 %) 13.2 L Riley % (Auto) (4.8 - 9.0 %) 6.2 Eos % (Auto) (0.3 - 3.7 %) 0.0 L Baso % (Auto) (0.0 - 2.0 %) 0.6 Neut # (Auto) (2.0 - 7.6 x10 3/uL) 4.99 Lymph # (Auto) (1.0 - 3.8 x10 3/uL) 0.83 L Riley # (Auto) (0.1 - 0.8 x10 3/uL) 0.39 Eos # (Auto) (0.0 - 0.2 x10 3/uL) 0.00 Baso # (Auto) (0.0 - 0.2 x10 3/uL) 0.04 Abs Immat Gran (auto) (0.00 - 0.03 x10 3/uL) 0.02 Immature Gran % (0.0 - 2.0 %) 0.3 Nucleated RBC % (0 - 0 %) 0.0 Nucleated RBCs # (Man) (0.0 - 0.1 x10 3/uL) 0.00 Laboratory Tests 01/20 0114 Toxicology Ethyl Alcohol (<10 mg/dL) < 3.0 Laboratory Tests 01/19 1244 Urines Urine Color (YEL/STRAW) YELLOW Urine Appearance (CLEAR) CLEAR Urine pH (5.0 - 7.0) 8.0 H Ur Specific [place] (1.005 - 1.030) 1.013 Urine Protein (NEGATIVE) 1+ H Urine Glucose (UA) (NEGATIVE) NEGATIVE Urine Ketones (NEGATIVE) NEGATIVE Urine Blood (NEGATIVE) NEGATIVE Urine Nitrite (NEGATIVE) NEGATIVE Urine Bilirubin (NEGATIVE) NEGATIVE Urine Urobilinogen (0.2 - 1.0 mg/dL) 0.2 Ur Leukocyte Esterase (NEGATIVE) NEGATIVE Urine RBC (0 - 3 RBC/HPF) 0-3 Urine WBC (0 - 3 WBC/HPF) 0-3 Ur Squamous Epith Cells (NONE SEEN /HPF) NONE SEEN Urine Bacteria (NONE SEEN /HPF) NONE SEEN Radiology Data: Recent Impressions: CAT SCAN - CT ABD PELVIS W/CONT 01/19 6401 Report Impression - Status: SIGNED Entered: 01/19/2023 9388 IMPRESSION: Well-circumscribed large cystic lesion mainly in the midline at 18 cm in diameter. There appear be more solid components at the right adnexal level with another complex cystic component. 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 No significant free fluid seen for rupture. Trace free fluid at the left paracolic gutter. Diverticulosis of the sigmoid and left colon but no active inflammatory changes. Slight fullness of the main pancreatic duct may need correlation with pancreatic enzyme abnormalities. Single gallstone without cholecystitis findings Location: U19 Impression By: [email or web address] - Enrique Perez M.D. Results: labs reviewed, vital signs reviewed, rhythm personally rev'd Telemetry Interpretation: sinus rhythm Diagnosis, Assessment Plan Problem List/A P: 1. Aortic stenosis 2. Mitral valve regurgitation Plan discussed with: patient, collaborating MD, consultants, nurse Free Text DxA P Notes Free Text DxA P Notes: 67 YO female came to ED with acute abdominal pain, nausea and vomiting. CT showed large pelvic mass concerning for malignancy. She has MHx of HTN, COPD, prior smoker, new findings of severe aortic valve stenosis and severe mitral valve regurgitation. She has been having exertional dyspnea and lower extremity edema which prompted cardiology evaluation. 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 Unfortunately patient had acute GI symptoms that landed her in the ED. # Pelvic mass concerning for malignancy * OB-BEVEL GEAR GENERATOR OPERATOR and surgery consulted * workup ongoing # Aortic valve stenosis and mitral valve regurgitation * CTS onboard, holding off on any surgical intervention pending outcome of pelvic mass workup. # Hypertension * resume BP meds Appreciate the referral. MDM by Dr. Pham. at 1433 at 1003 RPT #:[id number] END OF REPORT [facility] 2023-01-20 05:25:00 [facility] ([facility]) Cardiothoracic Surgery Prog REPORT#:[id number] REPORT STATUS: Signed REPORT INITIALIZATION DATE:01/20/23 TIME: 524 PATIENT: SALINA LAFLEUR UNIT #: [id number] ROOM/BED: [place] [address] : 54 AGE: 67 SEX: F ATTEND: Stef Moore MD ADM AUTHOR: Tamara Benavides Physic REPT SERVICE DT/TIME: 01/20/23 0525 * ALL edits or amendments must be made on the electronic/computer document * Subjective Chief complaint: Abdomina pain, vomiting Abdominal mass. Review of Systems Constitutional: Denies: fever, generalized weakness. Skin: Denies: rash, swelling. Allergy/Immun: Denies: itching, rhinorrhea. Eyes: Denies: redness, discharge. ENT: Denies: ear ringing, earache. Respiratory: Reports: HILL (dyspnea on exertion). Denies: wheezing. Cardiovascular: Reports: HILL (dyspnea on exertion). Denies: edema. GI: Reports: abdominal pain. : Denies: hematuria. Musculoskeletal: Denies: joint pain, joint swelling. Heme: Denies: bleeding, bruising. Endocrine: Denies: polyuria. Neuro: Denies: confusion. Psych: Denies: anxiety. All systems rev neg: except as marked Objective General VS/I O Last Documented: Result Date Time Pulse Ox 98 01/21 452 B/P 120/56 01/21 452 B/P Mean 0.0 01/21 452 O2 Delivery Room air 01/21 452 Temp 98.2 01/21 452 Pulse 64 01/21 452 Resp 17 01/21 452 24 hour I O ending at 0700: 01/20 0700 01/19 1900 Intake Total Output Total Balance Output, Emesis Patient 84.3 kg 83.636 kg Weight Weight Standing scale Stated/Reported Measurement Method PATIENT WEIGHT: Weight (lb): 185 Weight (oz): 13.59 Weight (kg): 84.300 Physical Exam General appearance: alert, awake, oriented HEENT: mucosal membranes moist Neck: full range of motion, no masses or swelling Cardiovascular: BP/pulses equal bilat., regular rate rhythm Respiratory: aerating well, no distress Abdomen: tenderness Extremities: dry, moves all Neuro/TICK SEWER: alert, oriented X 3 Skin: dry, intact Diagnosis, Assessment Plan Hospital course to date: This Is a 67-year-old female with a past medical history of hypertension, hyperlipidemia, aortic valve stenosis, mitral regurgitation who presents today for evaluation for aortic valve replacement and mitral valve replacement. She reports she has increased shortness of breath for the past several months. She underwent [facility] with echocardiogram showing severe aortic valve stenosis with an HAILE 0.9 cm, peak gradient 37 mmHg, mean 60 mmHg. She underwent JAMES showing severe mitral regurgitation with systolic reversal pulmonary vein, with thickening of the aortic valve with masslike appearance. She underwent left heart catheterization at [facility] showing no significant coronary artery disease. she had an episode of vomiting and abdominal pain and therefore referred her to the ED. CT abdomen pelvis demonstrates well-circumscribed large cystic lesion in the midline likely cystadenoma or cystadenocarcinoma. General surgery has been consulted. Assessment: Newly diagnosed abdominal mass Eval for MVR/AVR 01/19/2023 Patient seen and evaluated by Dr. Lui. Clinically stable. Scheduling of MVR/AVR will be on hold at this time, pending medical/surgical optimization CV surgery will continue to follow from time to time. Please call if you have any questions or concerns 01/20/23 Paient resting comfortable Complains of lower abdominal pain. Denies chest pains Denies any further nausea or vomiting. Respiratory: On room air Cardiac: Remains sinus rhythm Gynecology/oncology consulted. General surgery consulted Surgery for MVR/AVR will be on hold at this time. We will consult cardiology for optimization Patient seen and examined Dr. Lui. Further recommendations to follow at 1110 at 1651 RPT #:[id number] END OF REPORT [facility] 2023-01-19 18:17:00 [facility] ([facility]) Cardiothoracic Surgery Consult REPORT#:[id number] REPORT STATUS: Signed REPORT INITIALIZATION DATE:01/19/23 TIME: 1816 PATIENT: SALINA LAFLEUR UNIT #: [id number] ROOM/BED: [place] [address] : 54 AGE: 67 SEX: F ATTEND: Stef Moore MD ADM AUTHOR: Sandra Gonsales SAUSAGE MACHINE OPERATOR REPT SERVICE DT/TIME: 01/19/231816 * ALL edits or amendments must be made on the electronic/computer document * Sandra Gonsales 01/19/231816: History of Present Illness HPI Chief complaint: Abdomina pain, vomiting Requesting Clinician Patient of Dr. Lui HPI: This Is a 67-year-old female with a past medical history of hypertension, hyperlipidemia, aortic valve stenosis, mitral regurgitation who presents today for evaluation for aortic valve replacement and mitral valve replacement. She reports she has increased shortness of breath for the past several months. She underwent full work-up [facility] with echocardiogram showing severe aortic valve stenosis with an HAILE 0.9 cm, peak gradient 37 mmHg, mean 60 mmHg. She underwent JAMES showing severe mitral regurgitation with systolic reversal pulmonary vein, with thickening of the aortic valve with masslike appearance. She underwent left heart catheterization at [facility] showing no significant coronary artery disease. she had an episode of vomiting and abdominal pain and therefore referred her to the ED. CT abdomen pelvis demonstrates well-circumscribed large cystic lesion in the midline likely cystadenoma or cystadenocarcinoma. General surgery has been consulted. History Smoking status for patients 13 years old or older: Former Smoker Allergies: Coded Allergies: sulfamethoxazole (From BACTRIM) (Mild, HIVES 01/20/23) trimethoprim (From BACTRIM) (Mild, HIVES 01/20/23) Review of Systems Review of Systems Constitutional: Reports: fatigue, generalized weakness. Skin: Denies: diaphoresis, ecchymosis, itching, laceration. Allergy/Immun: Denies: hives, itching, rhinorrhea. Eyes: Denies: visual loss/blurred, itching, diplopia, photophobia. ENT: Denies: mouth pain, sore throat, throat pain, toothache, voice change. Respiratory: Reports: HILL (dyspnea on exertion), SOB. Cardiovascular: Denies: chest pain, palpitations. GI: Reports: abdominal pain, nausea, vomiting. : Denies: dysuria, flank pain. Musculoskeletal: Denies: extremity pain, extremity swelling, joint pain, joint swelling. Endocrine: Denies: cold intolerance, heat intolerance, polydipsia, polyphagia. Neuro: Denies: confusion, dizziness, focal weakness, gait problem, headache, lightheaded, numbness, seizure. Psych: Denies: agitation, anxiety. All systems rev neg: except as marked Objective Physical Exam VS/I O: Last Documented: Result Date Time Pulse Ox 100 01/19 1753 B/P 150/82 01/19 1753 B/P Mean 104.8 01/19 1753 O2 Delivery Room air 01/19 1753 Temp 99.1 01/19 1753 Pulse 57 01/19 1753 Resp 22 01/19 1753 PATIENT WEIGHT: Weight (lb): Weight (oz): Weight (kg): 83.636 General appearance: alert, awake, oriented, no acute distress HEENT: anicteric, mucosal membranes moist, pupils reactive to light Neck: full range of motion, non-tender Cardiovascular: normal heart sounds, regular rate rhythm Murmur: Systolic 4/6, Diastolic 4/6 Respiratory: aerating well, clear to auscultation, symmetric expansion, no distress Abdomen: soft, non-tender Genitourinary: no bladder distention, no flank pain Extremities: dry, moves all, normal capillary refill, normal temperature Musculoskeletal: full range of motion, painless range of motion Neuro/TICK SEWER: alert, oriented X 3 Skin: dry, intact, normal temperature Psychiatry: normal affect, normal judgment/insight, normal mood Results Findings/Data: Laboratory Tests 01/19 1244 Chemistry Sodium (134 - 147 mEq/L) 137 Potassium (3.4 - 5.0 mEq/L) 3.7 Chloride (100 - 108 mEq/L) 101 Carbon Dioxide (21 - 33 mEq/l) 31 Anion Gap (0 - 20) 9 BUN (7 - 25 mg/dL) 15 Creatinine (0.6 - 1.3 mg/dL) 0.6 Glomerular Filtr Rate (80 - 90) 97.7 H Glucose (77 - 141 mg/dL) 117 Calcium (8.0 - 10.5 mg/dL) 9.6 Total Bilirubin (0.0 - 1.0 mg/dL) 0.60 Direct Bilirubin (0.1 - 0.3 MG/DL) 0.20 Indirect Bilirubin (MG/DL) 0.40 AST (8 - 34 IUnit/L) 25 ALT (10 - 49 IUnit/L) 14 Total Alk Phosphatase (20 - 125 IUnit/L) 79 Troponin I High Sens (0 - 34 ng/L) 22 Total Protein (6.4 - 8.2 g/dL) 7.2 Albumin (3.4 - 5.0 g/dL) 4.00 Lipase (13 - 57 U/L) 34 Laboratory Tests 01/19 1244 Hematology WBC (4.5 - 11.0 x10 3/uL) 6.3 RBC (3.54 - 5.02 x10 6/uL) 4.13 Hgb (11.0 - 15.0 g/dL) 12.8 Hct (33.0 - 45.0 %) 39.7 MCV (81.0 - 99.0 fL) 96.1 MCH (27.0 - 33.0 pg) 31.0 MCHC (33.0 - 37.0 g/dL) 32.2 L RDW (11.5 - 14.5 %) 15.4 H Plt Count (150 - 400 x10 3/uL) 347 MPV (7.0 - 9.0 fL) 8.8 Neut % (Auto) (56.0 - 77.0 %) 79.7 H Lymph % (Auto) (14.0 - 32.0 %) 13.2 L Riley % (Auto) (4.8 - 9.0 %) 6.2 Eos % (Auto) (0.3 - 3.7 %) 0.0 L Baso % (Auto) (0.0 - 2.0 %) 0.6 Neut # (Auto) (2.0 - 7.6 x10 3/uL) 4.99 Lymph # (Auto) (1.0 - 3.8 x10 3/uL) 0.83 L Riley # (Auto) (0.1 - 0.8 x10 3/uL) 0.39 Eos # (Auto) (0.0 - 0.2 x10 3/uL) 0.00 Baso # (Auto) (0.0 - 0.2 x10 3/uL) 0.04 Abs Immat Gran (auto) (0.00 - 0.03 x10 3/uL) 0.02 Immature Gran % (0.0 - 2.0 %) 0.3 Nucleated RBC % (0 - 0 %) 0.0 Nucleated RBCs # (Man) (0.0 - 0.1 x10 3/uL) 0.00 Laboratory Tests 01/19 1244 Urines Urine Color (YEL/STRAW) YELLOW Urine Appearance (CLEAR) CLEAR Urine pH (5.0 - 7.0) 8.0 H Ur Specific [place] (1.005 - 1.030) 1.013 Urine Protein (NEGATIVE) 1+ H Urine Glucose (UA) (NEGATIVE) NEGATIVE Urine Ketones (NEGATIVE) NEGATIVE Urine Blood (NEGATIVE) NEGATIVE Urine Nitrite (NEGATIVE) NEGATIVE Urine Bilirubin (NEGATIVE) NEGATIVE Urine Urobilinogen (0.2 - 1.0 mg/dL) 0.2 Ur Leukocyte Esterase (NEGATIVE) NEGATIVE Urine RBC (0 - 3 RBC/HPF) 0-3 Urine WBC (0 - 3 WBC/HPF) 0-3 Ur Squamous Epith Cells (NONE SEEN /HPF) NONE SEEN Urine Bacteria (NONE SEEN /HPF) NONE SEEN Radiology data: Recent Impressions: CAT SCAN - CT ABD PELVIS W/CONT 01/19 1351 Report Impression - Status: SIGNED Entered: 01/19/2023 2583 IMPRESSION: Well-circumscribed large cystic lesion mainly in the midline at 18 cm in diameter. There appear be more solid components at the right adnexal level with another complex cystic component. 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 No significant free fluid seen for rupture. Trace free fluid at the left paracolic gutter. Diverticulosis of the sigmoid and left colon but no active inflammatory changes. Slight fullness of the main pancreatic duct may need correlation with pancreatic enzyme abnormalities. Single gallstone without cholecystitis findings Location: U19 Impression By: [email or web address] - Enrique Perez M.D. Diagnosis, Assessment Plan Free Text A P: This Is a 67-year-old female with a past medical history of hypertension, hyperlipidemia, aortic valve stenosis, mitral regurgitation who presents today for evaluation for aortic valve replacement and mitral valve replacement. She reports she has increased shortness of breath for the past several months. She underwent full work[facility]up [facility] with echocardiogram showing severe aortic valve stenosis with an HAILE 0.9 cm, peak gradient 37 mmHg, mean 60 mmHg. She underwent JAMES showing severe mitral regurgitation with systolic reversal pulmonary vein, with thickening of the aortic valve with masslike appearance. She underwent left heart catheterization at [facility] showing no significant coronary artery disease. she had an episode of vomiting and abdominal pain and therefore referred her to the ED. CT abdomen pelvis demonstrates well-circumscribed large cystic lesion in the midline likely cystadenoma or cystadenocarcinoma. General surgery has been consulted. Assessment: Newly diagnosed abdominal mass Eval for MVR/AVR 01/19/2023 Patient seen and evaluated by Dr. Lui. Clinically stable. Scheduling of MVR/AVR will be on hold at this time, pending medical/surgical optimization CV surgery will continue to follow from time to time. Please call if you have any questions or concerns Plan discussed with: patient, family, consultants Svitlana Lui 02/09/23 1017: Attestations Physician Attestation Agree w/findings plan: I have seen and examined Ms. Lafleur. I agree with the findings and plan as documented by KALIE Cunha. Briefly, 67-year-old female with severe mitral regurgitation moderate aortic stenosis, and pelvic mass. She needs intervention on the aortic and mitral valve, personal assistant were consulted who feels that the uterine and endocrine external mass should get priority over heart surgery. I had a long discussion with the patient and the family, explained to them the echo findings and need for intervention. I have discussed with her the procedure, risk involved, benefit, alternatives, and complications. We will work her up and presented her in the high risk cardiac surgery conference. Further recommendations to follow at 1430 at 1020 RPT #:[id number] END OF REPORT [facility] 2023-01-19 17:55:00 [facility] ([facility]) History Physical - Adult REPORT#:[id number] REPORT STATUS: Signed REPORT INITIALIZATION DATE:01/19/23 TIME: 1754 PATIENT: SALINA LAFLEUR UNIT #: [id number] ROOM/BED: [place] [address] : 54 AGE: 67 SEX: F ATTEND: Stef Moore MD ADM AUTHOR: Angeles Zarate NP REPT SERVICE DT/TIME: 01/19/231754 * ALL edits or amendments must be made on the electronic/computer document * History of Present Illness HPI Chief complaint: Abdominal pain, nausea, vomiting HPI: 67-year-old female with past medical history of COPD, depression, restless leg syndrome, hypertension, AVR/MVR presented to [facility] emergency room with a complaint of abdominal pain, nausea, and vomiting starting today. Patient reports the pain is primarily in the right side. Patient denies fever, chills, chest pain, shortness of breath, sick contact, eating bad or usual food.Patient reports that she was at Dr. Lui's office when her symptoms started. And he did advise her to go to the emergency room for evaluation. Admission vital signs:Blood pressure 154/89, pulse 65, respiratory 15, temperature 36.6, O2 sat 100% on room air. Labs are unremarkable No UTI as per UA CT of the abdomen and pelvis with contrast reveals: Well-circumscribed large cystic lesion mainly in the midline at 18 cm in diameter. There appear be more solid components at the right adnexal level with another complex cystic component. 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 No significant free fluid seen for rupture. EKG reveals sinus rhythm, no STEMI. History Smoking status for patients 13 years old or older: Former Smoker Medication/Allergy-Vaccine Hx Allergies: Coded Allergies: sulfamethoxazole (From BACTRIM) (Mild, HIVES 01/20/23) trimethoprim (From BACTRIM) (Mild, HIVES 01/20/23) Review of Systems Constitutional: Denies: chills, fever. ENT: Denies: earache, nasal congestion, sore throat. Respiratory: Reports: HILL (dyspnea on exertion). Denies: hemoptysis, parox nocturnal dyspnea , pleurisy, pleuritic pain, pneumonia, SOB, wheezing. Cardiovascular: Reports: HILL (dyspnea on exertion). Denies: chest pain, palpitations. GI: Reports: abdominal pain, nausea, vomiting. : Denies: flank pain, frequency, hematuria. Musculoskeletal: Arthritis: Denies: left upper, left lower, right upper, right lower. Neuro: Denies: change in LOC, confusion, dizziness, focal weakness, gait problem, headache, lightheaded, numbness, seizure, slurred speech, spinning sensation, syncope, unable to speak, vision change. Psych: Denies: agitation, anxiety, auditory hallucination, change in mental status, confusion, delusional, depression, homicidal ideation, hostile, insomnia, stress , suicidal ideation, visual hallucination. Physical Exam VS/I O Vital Signs: Date Time Temp Pulse Resp B/P B/P Pulse O2 O2 Flow FiO2 Mean Ox Delivery Rate 01/19 1753 37.3 57 22 150/82 104.8 100 Room air 01/19 1136 36.6 65 15 154/89 110 100 Room air PATIENT WEIGHT: Weight (lb): Weight (oz): Weight (kg): 83.636 General appearance: alert, awake Head/Eyes: atraumatic, clear cornea, EOMI, normocephalic, normal conjunctiva/ sclera, normal eyelids/periorb, PERRLA Neck: non-tender, no JVD Cardiovascular: normal capillary refill Respiratory: decreased breath sounds, no distress, no tenderness, symmetric expansion Abdomen/GI: soft, no guarding, no rebound, no distention, no mass/organomegaly, no pulsatile mass, no hernia, normal abdominal aorta Abdomen quadrants: LLQ normal bowel sounds, LUQ normal bowel sounds, RLQ normal bowel sounds, RUQ normal bowel sounds Extremities: decreased range of motion, edema, moves all, RLE MORE EDEMATOUS Neuro/TICK SEWER: alert, oriented X 3 Skin: ecchymosis, dry, intact, no gross abnormalities Psychiatry: no hallucinations, normal affect, normal judgment/insight, normal mood, not homicidal, not suicidal Results Findings/Data: Laboratory Tests: 01/19 1244 Chemistry Sodium (134 - 147 mEq/L) 137 Potassium (3.4 - 5.0 mEq/L) 3.7 Chloride (100 - 108 mEq/L) 101 Carbon Dioxide (21 - 33 mEq/l) 31 Anion Gap (0 - 20) 9 BUN (7 - 25 mg/dL) 15 Creatinine (0.6 - 1.3 mg/dL) 0.6 Glomerular Filtr Rate (80 - 90) 97.7 H Glucose (77 - 141 mg/dL) 117 Calcium (8.0 - 10.5 mg/dL) 9.6 Total Bilirubin (0.0 - 1.0 mg/dL) 0.60 Direct Bilirubin (0.1 - 0.3 MG/DL) 0.20 Indirect Bilirubin (MG/DL) 0.40 AST (8 - 34 IUnit/L) 25 ALT (10 - 49 IUnit/L) 14 Total Alk Phosphatase (20 - 125 IUnit/L) 79 Troponin I High Sens (0 - 34 ng/L) 22 Total Protein (6.4 - 8.2 g/dL) 7.2 Albumin (3.4 - 5.0 g/dL) 4.00 Lipase (13 - 57 U/L) 34 Hematology WBC (4.5 - 11.0 x10 3/uL) 6.3 RBC (3.54 - 5.02 x10 6/uL) 4.13 Hgb (11.0 - 15.0 g/dL) 12.8 Hct (33.0 - 45.0 %) 39.7 MCV (81.0 - 99.0 fL) 96.1 MCH (27.0 - 33.0 pg) 31.0 MCHC (33.0 - 37.0 g/dL) 32.2 L RDW (11.5 - 14.5 %) 15.4 H Plt Count (150 - 400 x10 3/uL) 347 MPV (7.0 - 9.0 fL) 8.8 Neut % (Auto) (56.0 - 77.0 %) 79.7 H Lymph % (Auto) (14.0 - 32.0 %) 13.2 L Riley % (Auto) (4.8 - 9.0 %) 6.2 Eos % (Auto) (0.3 - 3.7 %) 0.0 L Baso % (Auto) (0.0 - 2.0 %) 0.6 Neut # (Auto) (2.0 - 7.6 x10 3/uL) 4.99 Lymph # (Auto) (1.0 - 3.8 x10 3/uL) 0.83 L Riley # (Auto) (0.1 - 0.8 x10 3/uL) 0.39 Eos # (Auto) (0.0 - 0.2 x10 3/uL) 0.00 Baso # (Auto) (0.0 - 0.2 x10 3/uL) 0.04 Abs Immat Gran (auto) (0.00 - 0.03 x10 3/uL) 0.02 Immature Gran % (0.0 - 2.0 %) 0.3 Nucleated RBC % (0 - 0 %) 0.0 Nucleated RBCs # (Man) (0.0 - 0.1 x10 3/uL) 0.00 Urines Urine Color (YEL/STRAW) YELLOW Urine Appearance (CLEAR) CLEAR Urine pH (5.0 - 7.0) 8.0 H Ur Specific [place] (1.005 - 1.030) 1.013 Urine Protein (NEGATIVE) 1+ H Urine Glucose (UA) (NEGATIVE) NEGATIVE Urine Ketones (NEGATIVE) NEGATIVE Urine Blood (NEGATIVE) NEGATIVE Urine Nitrite (NEGATIVE) NEGATIVE Urine Bilirubin (NEGATIVE) NEGATIVE Urine Urobilinogen (0.2 - 1.0 mg/dL) 0.2 Ur Leukocyte Esterase (NEGATIVE) NEGATIVE Urine RBC (0 - 3 RBC/HPF) 0-3 Urine WBC (0 - 3 WBC/HPF) 0-3 Ur Squamous Epith Cells (NONE SEEN /HPF) NONE SEEN Urine Bacteria (NONE SEEN /HPF) NONE SEEN Radiology data: Recent Impressions: CAT SCAN - CT ABD PELVIS W/CONT 01/19 1351 Report Impression - Status: SIGNED Entered: 01/19/2023 2101 IMPRESSION: Well-circumscribed large cystic lesion mainly in the midline at 18 cm in diameter. There appear be more solid components at the right adnexal level with another complex cystic component. 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 No significant free fluid seen for rupture. Trace free fluid at the left paracolic gutter. Diverticulosis of the sigmoid and left colon but no active inflammatory changes. Slight fullness of the main pancreatic duct may need correlation with pancreatic enzyme abnormalities. Single gallstone without cholecystitis findings Location: U19 Impression By: [email or web address] - Enrique Perez M.D. Diagnosis, Assessment Plan Free Text DxA P Notes Free Text DxA P Notes: 67-year-old female with past medical history of COPD, depression, restless leg syndrome, hypertension, AVR/MVR presented to [facility] emergency room with a complaint of abdominal pain, nausea, and vomiting starting today. Patient reports the pain is primarily in the right side. Patient denies fever, chills, chest pain, shortness of breath, sick contact, eating bad or usual food.Patient reports that she was at Dr. Lui's office when her symptoms started. And he did advise her to go to the emergency room for evaluation. Admission vital signs:Blood pressure 154/89, pulse 65, respiratory 15, temperature 36.6, O2 sat 100% on room air. 1. Abdominal pain associated with nausea and vomiting -Large cystic lesion in the midline and adnexa 2. AVR/MVR 3. Hypertension 4. COPD 5. Depression/anxiety 6. Restless leg syndrome 7. Chronic edema to bilateral lower extremities right larger than left Plan of care: Admit patient for further evaluation and treatment Dr. Lui has been consulted General surgery consultation in place We will add BEVEL GEAR GENERATOR OPERATOR oncology to evaluate Keep on telemetry Repeat labs Strict I's and O's We will do vaginal ultrasound Pain control Antiemetics Reconcile home medication when available Hypertension control Patient for transfer to the [place] [id number] Further recommendation will be based on patient's clinical course at 2216 at 0922 RPT #:[id number] END OF REPORT [facility] 2023-01-19 17:05:00 [facility]) General Surgery Consult Note REPORT#:[id number] REPORT STATUS: Signed REPORT INITIALIZATION DATE:01/19/23 TIME: 1704 PATIENT: SALINA LAFLEUR UNIT #: [id number] ROOM/BED: [place] [id number] : 54 AGE: 67 SEX: F ATTEND: Stef Moore MD ADM AUTHOR: Dru Benoit REPT SERVICE DT/TIME: 01/19/231704 * ALL edits or amendments must be made on the electronic/computer document * Dru Benoit 01/19/231704: History of Present Illness HPI: The patient was seen in the ED at the request of ED provider. CC: Abdominal pain HPI: This is a 59-year-old female who presented to the ED after being advised by her CV surgeon to come to the ED because she has severe aortic valve disease noted on outpatient echo. The patient reported to the ED provider that she was having abdominal pain and one episode of vomiting that a.m. prior to arrival to the ED. CT abdomen/pelvis showed a large intra-abdominal cyst likely originated at the adnexa. General surgery was consulted History - Adult longitudinal Additional medical history: COPD, depression, restless leg syndrome, HTN, AVR, MVR Additional surgical history: none reported Family history: Reports: Heart disease, Hypertension. Alcohol use: Denies EtOH use Drug use: Denies recreational drugs Smoking status for patients 13 years old or older: Former Smoker Allergies: Coded Allergies: sulfamethoxazole (From BACTRIM) (Mild, HIVES 01/20/23) trimethoprim (From BACTRIM) (Mild, HIVES 01/20/23) Review of Systems Constitutional: Denies: fever. GI: Reports: abdominal pain, nausea, vomiting. Denies: constipation, diarrhea. : Denies: hematuria, pelvic pain, urgency, urinary retention, vaginal bleeding, vaginal discharge. Free Text ROS Notes Free Text ROS Notes: Review of systems: As above; otherwise, negative to include neurologic, eyes, ENT, CV, respiratory, GI, musculoskeletal, , skin, psychiatric, hematologic, and allergy. Objective Physical Exam VS/I O Last Documented: Result Date Time Pulse Ox 92 01/20 182 B/P 129/80 01/20 182 B/P Mean 96.1 01/21 1824 O2 Delivery Room air 01/21 1824 Temp 98.4 01/20 182 Pulse 74 01/20 1824 Resp 13 01/20 1824 Vital Signs Date Temp Pulse Resp B/P B/P Mean Pulse Ox FiO2 01/19-01/20 97.7-99.0 54-76 13-19 120-149/56-80 0.0-99.1 92-99 24 hour I O ending at 0700: 01/20 0700 01/19 1900 Intake Total Output Total Balance Output, Emesis Patient 84.3 kg 83.636 kg Weight Weight Standing scale Stated/Reported Measurement Method PATIENT WEIGHT: Weight (lb): 185 Weight (oz): 13.59 Weight (kg): 84.300 Results Findings/Data: Laboratory Tests: 01/20 0114 Chemistry GGT (5 - 85 UNITS/L) 22 Toxicology Ethyl Alcohol (<10 mg/dL) < 3.0 Recent Impressions: ULTRASOUND - US PELVIS COMPLETE 01/20 5645 Report Impression - Status: SIGNED Entered: 01/20/2023 1416 Impression: Large complex cystic mass with apparent internal vascularity concerning for a cystic neoplasm. Given its size, this is inadequately assessed on ultrasound exam, MR imaging with and without IV contrast is recommended for further assessment. The uterus and ovaries are obscured on this exam. Ovarian torsion cannot be excluded. Trace pelvic ascites. Impression By: [email or web address] - Enrique Houston M.D. Results: labs reviewed, vital signs reviewed, vital signs stable, US results reviewed, current med profile rev'd Free Text Obj Notes Free Text Obj Notes: Physical Exam Constitutional: Patient appears awake, alert, no acute distress, HR, BP, Saturation reviewed in records. Eyes: pupils equal, round, reactive to light, no icterus, EOMI HENT: normal cephalic, atraumatic, no facial tenderness or crepitus, normal external inspection of ears/nose, no septal hematoma. Neck: trachea midline, no crepitus, thyroid without mass CV: regular rate, rhythm, bilateral radial pulses 2+, no cyanosis, no edema, no pulsatile abdominal mass Respiratory: lungs clear bilaterally, respirations even and unlabored, no tenderness to palpation, normal inspection of chest, no crepitus Abdomen: soft, non-tender, distended, no hernia noted : normal external genitalia, pelvis stable Lymph nodes: no cervical or supraclavicular masses noted Musculoskeletal: -bilateral upper extremity without focal tenderness, without deformity, with ROM intact -bilateral lower extremity without focal tenderness, without deformity, with ROM intact Skin: no lacerations or abrasions noted, skin warm to palpation. Psychiatric: normal mood and affect, memory intact. Neurologic: face symmetrical. GCS 15. Bilateral upper and lower extremity sensation intact Labs and images also reviewed personally. Diagnosis, Assessment Plan Free Text DxA P Notes Free Text DxA P Notes: Active Problems: Intra-abdominal cyst Intra-abdominal mass of unknown etiology Resolved Problems: n/a Incidental findings: n/a DVT prophylaxis: SCDs, Lovenox GI prophylaxis: diet Lines/Garcia/ETT (placement dates: PIV Consultants: gen surg, surgical oncology Procedures: n/a Plan: Vaginal ultrasound pending Recommend OBGYN and surg onc consult Regular diet ok from surgery standpoint Ok to proceed with cardiac procedures/surgery from surgery standpoint F/u imaging tomorrow Diet: NPO Labs: AM PT/OT recs: pending DME: recs pending Code status: Full code Medical Decision Making: In the event the patient is incapacitated and not able to make their own medical decisions, they have elected , contact number , to make medical decisions for them. Dispo: Case mgmt consulted, will continue to monitor for ICU criteria in the setting of trauma Quality: Trauma Gen Surg Advanced Care Plan 65 or Older Discussed with: patient Current Medications Current medication review: I attest that the foregoing medication list in the medical record is true, accurate, and complete to the best of my knowledge. VTE Prophylaxis - General VTE prophylaxis initiated: yes Dimas Rapp 01/30/23 1721: Attestations Attestation needed: supervising physician Physician Attestation Agree w/findings plan: I was present with the APC during the history and examination. I discussed the case with the APC and agree with the findings and plan as documented in the APC' s note. Agree with above exam findings. Plan: Agree with above plan Labs reviewed. Pertinent imaging personally reviewed. Discussed plan with other members of the healthcare team. at 1551 at 1723 RPT #:[id number] END OF REPORT [facility] 2023-01-19 12:36:00 [facility] ([facility]) EMERGENCY PROVIDER REPORT REPORT#:[id number] REPORT STATUS: Signed DATE:01/19/23 TIME: 1236 PATIENT: SALINA LAFLEUR UNIT #: [id number] ROOM/BED: [address] AGE: 67 SEX: F PCP PHYS: Vijay Woodruff MD SERVICE AUTHOR: Lani Garay MD * ALL edits or amendments must be made on the electronic/computer document * HPI-General Illness Free Text HPI Notes Free Text HPI Notes The patient is a 67-year-old with a history of hypertension and COPD female here with abdominal pain starting earlier today. Associated nausea and vomiting. Pain is primarily in the right side. No diarrhea. No sick contact no fever mild chills following vomiting. Has her appendix and gallbladder. History of diverticulitis. No dysuria no history of calculi. General Initial Greet Date/Time 01/19/23 1126 Presentation Chief Complaint Abdominal pain Review of Systems ROS Statements All systems rev neg except as marked. Free Text ROS Notes Free Text ROS Notes Abdominal pain nausea and vomiting Patient denies fever cp, shortness of breath, cough, confusion. Past Medical History - Adult Stated Complaint ABD PAIN/VOMITING Allergies Coded Allergies: sulfamethoxazole (From BACTRIM) (Mild, HIVES 01/20/23) trimethoprim (From BACTRIM) (Mild, HIVES 01/20/23) Home Medications Reported Medications rOPINIRole (REQUIP) 2 MG PO TID BUDESONIDE/FORMOTEROL FUMARATE (SYMBICORT 80/4.5 MCG/ACT) 2 PUFF INH BID LOSARTAN (COZAAR) 100 MG PO DAILY ESCITALOPRAM (LEXAPRO) 10 MG PO DAILY Discontinued Reported Medications HYDROcodone/APAP (HYDROcodone/APAP 10/325) 1-2 TAB PO Q4H PRN PRN FOR PAIN HYDROcodone/APAP (HYDROcodone/APAP 10/325) 1-2 TAB PO Q4H PRN PRN FOR PAIN #60 DC: 01/19/231823 Patient stopped taking RIVAROXABAN (XARELTO) 10 MG PO DAILY RIVAROXABAN (XARELTO) 10 MG PO DAILY #10 DC: 01/19/231823 Patient stopped taking ZOLPIDEM (AMBIEN) 5 MG PO BEDTIME PRN PRN SLEEP CALCIUM CARBONATE (CALTRATE 600 MG) 1,200 MG PO BEDTIME Smoking status for patients 13 years old or older: Former Smoker Physical Exam Vital Signs Vital Signs First Documented: Result Date Time Pulse Ox 100 01/19 1136 B/P 154/89 01/19 1136 B/P Mean 110 01/19 1136 O2 Delivery Room air 01/19 1136 Temp 36.6 01/19 1136 Pulse 65 01/19 1136 Resp 15 01/20 1136 Last Documented: Result Date Time Pulse Ox 100 01/19 1136 B/P 154/89 01/19 1136 B/P Mean 110 01/19 1136 O2 Delivery Room air 01/196 Temp 36.6 01/19 1136 Pulse 65 01/19 1136 Resp 15 01/19 1136 Review of Vital Signs Reviewed Free Text PE Notes Free Text PE Notes General/Const Awake, Alert, No acute distress, nontoxic Head Atraumatic, Normocephalic Ears/Nose/Throat Airway patent Neck Neck Supple Resp/Chest Breath sounds NL, No respiratory distress, No rales, No rhonchi, No wheezing Cardiovascular Heart rate NL, Regular rhythm, Heart sounds NL Abdomen/GI Soft, palpation in the right mid and lower quadrant, no rebound tenderness, nonperitoneal no distention MS No extremity swelling, NO gross deformity Skin Warm, Dry Neurologic Moving all extremities, Speech NL Psychiatric Affect NL, Mood NL Interpretation Diagnostics Lab Results Interpretation Results Laboratory Tests 01/19/231243: [Embedded Image Not Available] Laboratory Tests: 01/20 1244 Chemistry Sodium (134 - 147 mEq/L) 137 Potassium (3.4 - 5.0 mEq/L) 3.7 Chloride (100 - 108 mEq/L) 101 Carbon Dioxide (21 - 33 mEq/l) 31 Anion Gap (0 - 20) 9 BUN (7 - 25 mg/dL) 15 Creatinine (0.6 - 1.3 mg/dL) 0.6 Glomerular Filtr Rate (80 - 90) 97.7 H Glucose (77 - 141 mg/dL) 117 Calcium (8.0 - 10.5 mg/dL) 9.6 Total Bilirubin (0.0 - 1.0 mg/dL) 0.60 Direct Bilirubin (0.1 - 0.3 MG/DL) 0.20 Indirect Bilirubin (MG/DL) 0.40 AST (8 - 34 IUnit/L) 25 ALT (10 - 49 IUnit/L) 14 Total Alk Phosphatase (20 - 125 IUnit/L) 79 Troponin I High Sens (0 - 34 ng/L) 22 Total Protein (6.4 - 8.2 g/dL) 7.2 Albumin (3.4 - 5.0 g/dL) 4.00 Lipase (13 - 57 U/L) 34 Hematology WBC (4.5 - 11.0 x10 3/uL) 6.3 RBC (3.54 - 5.02 x10 6/uL) 4.13 Hgb (11.0 - 15.0 g/dL) 12.8 Hct (33.0 - 45.0 %) 39.7 MCV (81.0 - 99.0 fL) 96.1 MCH (27.0 - 33.0 pg) 31.0 MCHC (33.0 - 37.0 g/dL) 32.2 L RDW (11.5 - 14.5 %) 15.4 H Plt Count (150 - 400 x10 3/uL) 347 MPV (7.0 - 9.0 fL) 8.8 Neut % (Auto) (56.0 - 77.0 %) 79.7 H Lymph % (Auto) (14.0 - 32.0 %) 13.2 L Riley % (Auto) (4.8 - 9.0 %) 6.2 Eos % (Auto) (0.3 - 3.7 %) 0.0 L Baso % (Auto) (0.0 - 2.0 %) 0.6 Neut # (Auto) (2.0 - 7.6 x10 3/uL) 4.99 Lymph # (Auto) (1.0 - 3.8 x10 3/uL) 0.83 L Riley # (Auto) (0.1 - 0.8 x10 3/uL) 0.39 Eos # (Auto) (0.0 - 0.2 x10 3/uL) 0.00 Baso # (Auto) (0.0 - 0.2 x10 3/uL) 0.04 Abs Immat Gran (auto) (0.00 - 0.03 x10 3/uL) 0.02 Immature Gran % (0.0 - 2.0 %) 0.3 Nucleated RBC % (0 - 0 %) 0.0 Nucleated RBCs # (Man) (0.0 - 0.1 x10 3/uL) 0.00 Urines Urine Color (YEL/STRAW) YELLOW Urine Appearance (CLEAR) CLEAR Urine pH (5.0 - 7.0) 8.0 H Ur Specific [place] (1.005 - 1.030) 1.013 Urine Protein (NEGATIVE) 1+ H Urine Glucose (UA) (NEGATIVE) NEGATIVE Urine Ketones (NEGATIVE) NEGATIVE Urine Blood (NEGATIVE) NEGATIVE Urine Nitrite (NEGATIVE) NEGATIVE Urine Bilirubin (NEGATIVE) NEGATIVE Urine Urobilinogen (0.2 - 1.0 mg/dL) 0.2 Ur Leukocyte Esterase (NEGATIVE) NEGATIVE Urine RBC (0 - 3 RBC/HPF) 0-3 Urine WBC (0 - 3 WBC/HPF) 0-3 Ur Squamous Epith Cells (NONE SEEN /HPF) NONE SEEN Urine Bacteria (NONE SEEN /HPF) NONE SEEN Recent Impressions: CAT SCAN - CT ABD PELVIS W/CONT 01/19 1351 Report Impression - Status: SIGNED Entered: 01/19/2023 1443 IMPRESSION: Well-circumscribed large cystic lesion mainly in the midline at 18 cm in diameter. There appear be more solid components at the right adnexal level with another complex cystic component. 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 No significant free fluid seen for rupture. Trace free fluid at the left paracolic gutter. Diverticulosis of the sigmoid and left colon but no active inflammatory changes. Slight fullness of the main pancreatic duct may need correlation with pancreatic enzyme abnormalities. Single gallstone without cholecystitis findings Location: U19 Impression By: [email or web address] - Enrique Perez M.D. Lab Imaging Statement Laboratory radiographic studies reviewed and considered in the medical decision-making. ECG #1 Interpretation Text/Dict Note Normal sinus rhythm with a rate of [address] elevations no T wave abnormality otherwise normal interval no evidence of an acute infarct. Interpreted by and reviewed by me Re-Evaluation MDM Free Text MDM Notes Free Text MDM Notes Patient is a 67-year-old presenting to the emergency department with complaints of abdominal pain. Patient palpation in the right lower quadrant on exam Differentials include, appendicitis, gallbladder pathology including calculi or cholecystitis gastritis, PUD, UTI, Renal calculi, diverticulitis, volvulus, perforated viscus, pancreatitis and bowel obstruction. Antiemetics fluids and analgesics given. Will obtain CT abdomen pelvis for further delineation Re-Evaluation/Progress #1 Text/Dict Note Gen surg consult for Abdominal Cyst will also consult her cardiologisty Dr. Lui Discussed results with the patient as well as the plan to admit. Patientexpressed understanding and agreement with the plan. ED Course Medication(s) Ordered Medication(s) Ordered: Central Nervous System Agents Sig/Abdias Start time Last Medication Dose Route Stop Time Status Admin Acetaminophen 1,000 MG X1ED STA 01/19 1207 DC 10 PO 01/19 1208 1256 Electrolytic, Caloric, And Holly Sig/Abdias Start time Last Medication Dose Route Stop Time Status Admin Sodium Chloride 1,000 ML X1ED STA 01/19 1133 DC 01/19 IV 01/19 1232 1256 Gastrointestinal Drugs Sig/Abdias Start time Last Medication Dose Route Stop Time Status Admin Ondansetron HCl 4 MG X1ED PRN PRN 01/19 1145 AC IV 01/20 1144 Patient Discharge Departure Vital Signs/Condition Vital Signs First Documented: Result Date Time Pulse Ox 100 01/19 1136 B/P 154/89 01/19 1136 B/P Mean 110 01/19 1136 O2 Delivery Room air 01/19 113 Temp 36.6 01/19 113 Pulse 65 01/19 1136 Resp 15 01/19 113 Last Documented: Result Date Time Pulse Ox 100 01/19 1136 B/P 154/89 01/19 1136 B/P Mean 110 01/19 1136 O2 Delivery Room air 01/19 113 Temp 36.6 01/19 113 Pulse 65 01/19 113 Resp 15 01/19 113 All vital signs available at the time of this entry have been reviewed. Clinical Impression Clinical Impression Primary Impression: Abdominal mass Secondary Impressions: Abdominal pain affecting , Aortic regurgitation, Mitral stenosis Disposition Decision Hospitalize Hosp Physician Name Stef Moore MD Hosp Physician Hospitalist Request Time 161 Request Date 01/19/23 )( Accepts Hospitalization Yes )( Reason for Hospitalization Abdominal cyst )( Accepted Time 1617 )( Accepted Date 01/19/23 Call Information will see patient Discharge/Care Plan Admit Note I have spoken with the patient and/or caregivers. I have explained the patient's condition, diagnoses and treatment plan based on the information available to me at this time. I have answered the patient's and/or caregiver's questions and addressed any concerns. The patient and/or caregivers have as good an understanding of the patient's diagnosis, condition and treatment plan as can be expected at this point. The patient has been stabilized within the capability of the emergency department. The patient will be transported for further care and management or will be moved to an observation or inpatient service. I have communicated with the staff or medical practitioner taking over this patient's care. at 1447 RPT #:[id number] END OF REPORT [facility]
[2024-11-09] MEDS ORDERED: NA CHLORIDE 0.9% 0 ML ONE (14:44)
[2024-11-09] MEDS ORDERED: ONDANSETRON 4 MG/2 ML VIAL ONE (14:44)
[2024-11-09 14:49] LABS: Absolute Lymphocytes (CBC) 1.8 K/uL (0.7-4.9); Hematocrit 37.9 % (36.0-45.0); Hemoglobin 12.9 g/dL (12.0-15.0); MCH 32.3 pg (27.0-35.0); MCHC 34.0 g/dL (32.0-36.0); MCV 95.1 fL (80-100); MPV 6.6 fL (7.6-11.3); Nucleated RBC Absolute Count 0.0 (0-0); Nucleated Red Blood Cells % 0.0 % (0-0); RBC Red Blood Cell Count 3.99 M/uL (3.86-4.86); White Blood Count 7.10 thou/uL (4.3-10.9)
[2024-11-09] MEDS ORDERED: DICYCLOMINE HCL 20 MG/2 ML AMP IM ONE (14:53)
[2024-11-09] MEDS ORDERED: NA CHLORIDE 0.9% 500 ML ONE (14:53)
[2024-11-09 15:11] LABS: ALT/SGPT 26.0 U/L (13-56); AST/SGOT 21.0 U/L (15-37); Albumin 3.6 g/dL (3.4-5.0); Albumin/Globulin Ratio 1.2 (1.1-1.8); Alkaline Phosphatase 74.0 U/L (45-117); Anion Gap 10.0 mEq/L (5.0-15.0); BUN Blood Urea Nitrogen 16.0 mg/dL (7-18); Globulin 2.9 g/dL (2.3-3.5); Glucose Level 117.0 mg/dL (74-106); Lipase 19.0 U/L (13-75); Potassium 4.0 mEq/L (3.5-5.1)
--- NOTE | 2024-11-09 15:43 | RAD REPORT ---
EXAMINATION: CT ABDOMEN AND PELVIS WITH CONTRAST CLINICAL INDICATION: llq abdomen pain TECHNIQUE: CT abdomen and pelvis was performed, after the administration of IV contrast, as per [facility] protocol. Axial, sagittal and coronal reconstructions were obtained. One or more of the following dose reduction techniques were used: Automated exposure control, adjustment of the mA and k V according to patient size, and iterative reconstruction. Unless otherwise specified, incidental findings do not require dedicated imaging follow-up. COMPARISON: No prior exam. FINDINGS: LOWER CHEST: The visualized lung bases are clear. LIVER: Significant fatty liver with hepatomegaly present. No focal lesion or biliary dilitation. Sma ll gallbladder calculus suspected. SPLEEN: Normal size. No focal lesion. PANCREAS: No mass, ductal dilation, or jose-pancreatic fluid. ADRENALS: Normal; no mass. KIDNEYS: Normal size and contour. No hydronephrosis. GASTROINTESTINAL TRACT: Focal ventral hernia is seen with diastases of the rectus abdominis musculatu re. There is dilated small bowel loop and fluid within the hernia sac suggesting incarceration. The proximal upstream small bowel is dilated indicating partial obstruction. Prominent diverticulosis of the sigmoid colon without diverticulitis. APPENDIX: Appendix not visualized, but no inflammatory changes in region of appendix. LYMPH NODES: No lymphadenopathy. MUSCULOSKELETAL: Advanced multilevel lumbar degenerative changes. Mild anterolisthesis L5 on S1. ADDITIONAL FINDINGS: Small amount of air is present in the urinary bladder. IMPRESSION: Focal ventral hernia along the midline is present containing fluid and dilated small bowel loops like ly related to hernia incarceration. This appears to result in partial mechanical small bowel obstruction. Air in the urinary bladder may be related to recent instrumentation or infection.
--- NOTE | 2024-11-09 16:18 | ER ---
Nurse's Notes [facility] Name: Salina Thompson Age: 69 yrs Sex: Female : 1955 Arrival Date: 11/09/2024 Time: 14:02 Bed 13 Private MD: Diagnosis: Other and unspecified ventral hernia with obstruction, without gangrene Presentation: 11/09 14:15 Chief complaint: Patient states: "I have a mass right here (pt points to left side of aa5 abdomen) and I have an ultrasound scheduled for next Wednesday". Pt reports increased abd pain and vomiting last night. Coronavirus screen: At this time, the client does not indicate any symptoms associated with coronavirus-19. Ebola Screen: Patient denies travel to an Ebola-affected area in the 21 days before illness onset. Initial Sepsis Screen: Does the patient meet any 2 criteria? No. Patient's initial sepsis screen is negative. Does the patient have a suspected source of infection? No. Patient's initial sepsis screen is negative. Risk Assessment: Do you want to hurt yourself or someone else? Patient reports no desire to harm self or others. Onset of symptoms was October 2024. 14:15 Acuity: SAMI 3 aa5 14:15 Method Of Arrival: Ambulatory aa5 Historical: - Allergies: 14:16 Sulfa (Sulfonamide Antibiotics); aa5 - PMHx: 14:16 COPD; Hypertensive disorder; RLS; aa5 - PSHx: 14:16 Heart Valve Replacement (Unknown); Hernia repair (Unknown); Hysterectomy (Utenine mass) aa5 (Unknown); - Immunization history:: Adult Immunizations unknown. - Infectious Disease History:: Denies. - Social history:: Smoking status: Patient denies any tobacco usage or history of. Screenin:21 [facility] ED Fall Risk Assessment (Adult) History of falling in the last 3 months, me1 including since admission No falls in past 3 months (0 pts) Confusion or Disorientation No (0 pts) Intoxicated or Sedated No (0 pts) Impaired Gait No (0 pts) Mobility Assist Device Used No (0 pt) Altered Elimination No (0 pt) Score/Fall Risk Level 0 - 2 = Low Risk Maintained a safe environment, Provided non-skid footwear, Hourly rounding (assess needs \\T\\ fall precautionary measures) done. Abuse screen: Denies threats or abuse. Nutritional screening: No deficits noted. Tuberculosis screening: No symptoms or risk factors identified. Assessment: 14:21 General: Appears in no apparent distress. obese, well groomed, well developed, Behavior me1 is calm, cooperative, appropriate for age, Reports "I have a mass right here (pt points to left side of abdomen) and I have an ultrasound scheduled for next Wednesday". Pt reports increased abd pain and vomiting last night. Pain: Complains of pain in left upper quadrant and left lower quadrant Pain does not radiate. Pain currently is 3 out of 10 on a pain scale. at worst was 10 out of 10 on a pain scale. Quality of pain is described as crampy, sharp, Pain began gradually, Is continuous. Neuro: Level of Consciousness is awake, alert, obeys commands, Oriented to person, place, time, situation, Appropriate for age. Cardiovascular: Patient's skin is warm and dry. Respiratory: Airway is patent Respiratory effort is even, unlabored, Respiratory pattern is regular, symmetrical. GI: Abdomen is round Bowel sounds present X 4 quads. Abd is soft X 4 quads in left upper quadrant and left lower quadrant Reports lower abdominal pain, upper abdominal pain, nausea, vomiting, since yesterday. : No signs and/or symptoms were reported regarding the genitourinary system. EENT: No signs and/or symptoms were reported regarding the EENT system. Derm: Skin is intact, is healthy with good turgor, Skin is pink, warm \\T\\ dry. Musculoskeletal: No signs and/or symptoms reported regarding the musculoskeletal system. Vital Signs: 14:15 BP 119 / 64; Pulse 62; Resp 18 S; Temp 99.4(O); Pulse Ox 97% on R/A; Weight 90.72 kg aa5 (R); Height 5 ft. 4 in. (R); 15:00 BP 124 / 60; Pulse 62; Resp 15; Pulse Ox 94% ; me1 16:00 BP 125 / 65; Pulse 68; Resp 16; Pulse Ox 93% ; me1 17:00 BP 119 / 60; Pulse 65; Resp 17; Pulse Ox 92% ; me1 18:00 BP 132 / 53; Pulse 72; Resp 14; Pulse Ox 96% ; me1 18:40 BP 128 / 60; Pulse 78; Resp 15; Pulse Ox 94% ; me1 14:15 Body Mass Index 34.33 (90.72 kg, 162.56 cm) aa5 ED Course: 14:07 Patient arrived in ED. cj3 14:09 Severino Weir PA is PHCP. cp 14:09 Ruben Hill DO is Attending Physician. cp 14:15 Arm band placed on. aa5 14:16 Triage completed. aa5 14:21 Enid Dominguez, RN is Primary Nurse. me1 14:21 Patient has correct armband on for positive identification. Bed in low position. Call me1 light in reach. Side rails up X2. Provided Education on: POC. Verbalized understanding.. Client placed on continuous cardiac and pulse oximetry monitoring. NIBP monitoring applied. Pulse ox on. NIBP on. 14:21 No provider procedures requiring assistance completed. me1 14:41 CBC with Diff Sent. me1 14:41 CMP Sent. me1 14:41 Lipase Sent. me1 14:41 Initial lab(s) drawn, by ky, sent to lab. Inserted saline lock: 22 gauge in right me1 antecubital area, using aseptic technique. 15:26 CT Abd/Pelvis - IV Contrast Only In Process Unspecified. EDMS 16:16 Ciara Brennan MD is Hospitalizing Provider. cp 16:26 Urine collected: clean catch specimen, clear. sa1 16:43 Lactate w/ 2H reflex if indic. Sent. me1 17:51 Patient admitted, IV remains in place. me1 Administered Medications: 14:48 Drug: Ondansetron IVP 4 mg IVP once; over 2 minutes Route: IVP; Site: right antecubital;me1 16:38 Follow up: Response: No adverse reaction; Nausea is decreased me1 14:48 Drug: NS 0.9% IV 500 ml 500 ml IV at 1 bolus once; to be given as a bolus over 60 me1 minutes Volume: 500 ml; Route: IV; Rate: 1 bolus; Site: right antecubital; 16:37 Follow up: Response: No adverse reaction; IV Status: Completed infusion; IV Intake: me1 500ml 14:54 Not Given (Physician Discretion): ns 0.9% 500 ml 500 ml IV at 1 bolus once; to be given cp as a bolus over 60 minutes 15:00 Drug: Dicyclomine IM 20 mg IM once Route: IM; Site: right deltoid; me1 16:37 Follow up: Response: No adverse reaction; Pain is decreased me1 16:53 Drug: Piperacillin-Tazobactam IVPB 3.375 grams IVPB once over 60 mins; (mix in NS 100 me1 mL) Route: IVPB; Infused Over: 60 mins; Site: right antecubital; 17:43 Follow up: Response: No adverse reaction; IV Status: Completed infusion me1 Medication: 14:21 VIS not applicable for this client. me1 Intake: 16:37 IV: 500ml; Total: 500ml. me1 Outcome: 16:17 Decision to Hospitalize by Provider. cp 17:51 Admitted to Tele accompanied by tech, via wheelchair, room 412, with chart, Report me1 called to faxed, receipt confirmed with Severino 17:51 Condition: stable 17:51 Instructed on the need for admit, 19:14 Patient left the ED. ss12 Signatures: Dispatcher [employer] Zehra Varner, RN RN aa5 Severino Weir, CRISTOFER PA cp Enid Dominguez, RN RN me1 Sultan Yaritza sa1 Dotty Kennedy 3 Rahel Mcginnis RN RN ss12 Corrections: (The following items were deleted from the chart) 14:21 14:15 Chief complaint: Patient states: "I have a mass right here (pt points to left me1 side of abdomen) and I have an ultrasound scheduled for next Wednesday". Pt reports increased abd pain and vomiting last night. aa5
--- NOTE | 2024-11-09 16:18 | EDPHYS ---
Physician Documentation [facility] Name: Salina Thompson Age: 69 yrs Sex: Female : 1955 Arrival Date: 11/09/2024 Time: 14:02 Bed 13 Private MD: ED Physician Ruben Hill HPI: 11/09 14:30 This 69 yrs old Female presents to ER via Ambulatory with complaints of Abdominal Pain, cp Nausea/Vomiting. 14:30 The patient presents with abdominal pain in the left lower quadrant. cp 14:30 Onset: The symptoms/episode began/occurred for past several months. patient reports pcp cp ordered US of abdomen that is scheduled next month. pain became worse yesterday with 2 episodes of vomiting. Historical: - Allergies: 14:16 Sulfa (Sulfonamide Antibiotics); aa5 - PMHx: 14:16 COPD; Hypertensive disorder; RLS; aa5 - PSHx: 14:16 Heart Valve Replacement (Unknown); Hernia repair (Unknown); Hysterectomy (Utenine mass) aa5 (Unknown); - Immunization history:: Adult Immunizations unknown. - Infectious Disease History:: Denies. - Social history:: Smoking status: Patient denies any tobacco usage or history of. ROS: 14:35 Constitutional: Negative for body aches, chills, fever, poor PO intake, cp 14:35 Eyes: Negative for injury, pain, redness, and discharge, cp 14:35 ENT: Negative for drainage from ear(s), ear pain, sore throat, difficulty swallowing, difficulty handling secretions, 14:35 Cardiovascular: Negative for chest pain, 14:35 Respiratory: Negative for cough, shortness of breath, wheezing, 14:35 Abdomen/GI: Positive for abdominal pain, nausea and vomiting, Negative for diarrhea, constipation, hematemesis, 14:35 Neuro: Negative for altered mental status, dizziness, headache, weakness, 14:35 All other systems are negative, Exam: 14:40 Constitutional: The patient appears in no acute distress, alert, awake, cp non-diaphoretic, non-toxic, well developed, well nourished, uncomfortable, 14:40 Head/Face: Normocephalic, atraumatic. cp 14:40 Eyes: Periorbital structures: appear normal, Conjunctiva: normal, no exudate, no injection, Sclera: no appreciated abnormality, Lids and lashes: appear normal, bilaterally, 14:40 ENT: External ear(s): are unremarkable, Nose: is normal, Mouth: Lips: moist, Oral mucosa: moist, Posterior pharynx: Airway: no evidence of obstruction, patent, 14:40 Chest/axilla: Inspection: normal, 14:40 Cardiovascular: Rate: normal, Rhythm: regular, Edema: is not appreciated, JVD: is not appreciated, 14:40 Respiratory: the patient does not display signs of respiratory distress, Respirations: normal, no use of accessory muscles, no retractions, labored breathing, is not present, Breath sounds: are clear throughout, no decreased breath sounds, no stridor, no wheezing, 14:40 Abdomen/GI: Inspection: abdomen appears normal, Bowel sounds: active, all quadrants, Palpation: soft, in all quadrants, mild abdominal tenderness, in the left lower quadrant, rebound tenderness, is not appreciated, involuntary guarding, is not appreciated, 14:40 Back: pain, is absent, ROM is normal, 14:40 Neuro: Orientation: to person, place \T\ time. Mentation: is normal, Motor: moves all fours, strength is normal, Sensation: is normal, Vital Signs: 14:15 BP 119 / 64; Pulse 62; Resp 18 S; Temp 99.4(O); Pulse Ox 97% on R/A; Weight 90.72 kg aa5 (R); Height 5 ft. 4 in. (R); 15:00 BP 124 / 60; Pulse 62; Resp 15; Pulse Ox 94% ; me1 16:00 BP 125 / 65; Pulse 68; Resp 16; Pulse Ox 93% ; me1 17:00 BP 119 / 60; Pulse 65; Resp 17; Pulse Ox 92% ; me1 18:00 BP 132 / 53; Pulse 72; Resp 14; Pulse Ox 96% ; me1 18:40 BP 128 / 60; Pulse 78; Resp 15; Pulse Ox 94% ; me1 14:15 Body Mass Index 34.33 (90.72 kg, 162.56 cm) aa5 MDM: 15:00 Differential diagnosis: bowel obstruction, diverticulitis, non-specific abd pain, cp Pyelonephritis, Ureterolithiasis, urinary tract infection. 16:15 Management of patient was discussed with the following: [employer] Supervisor: DR Kearney cp concerning results of labs, CT and admission to service of hospitalist. 16:15 Data reviewed: vital signs, nurses notes, lab test result(s), radiologic studies, CT cp scan, and as a result, I will admit patient. 16:17 Medical Screening Exam initiated 16:20 I considered the following discharge prescriptions or medication management in the emergency department Medications were administered in the Emergency Department. See MAR. 16:20 Management of patient was discussed with the following: Hospitalist: DR Brennan will admit cp after discussion. Care significantly affected by the following chronic conditions: Hypertension, Chronic Obstructive Pulmonary Disease. 11/09 14:30 Order name: CBC with Diff; Complete Time: 14:54 cp 11/09 15:45 Interpretation: Reviewed. 11/09 14:30 Order name: CMP; Complete Time: 15:45 11/09 15:45 Interpretation: Normal except: GLUC 117; GFR 87. 11/09 14:30 Order name: Lipase; Complete Time: 15:45 11/09 14:30 Order name: UA Rfx Dmitry Cult if indicated; Complete Time: 17:02 11/09 15:49 Order name: Lactate w/ 2H reflex if indic. 11/09 17:03 Order name: Magnesium EDMS 11/09 17:03 Order name: Protime (+INR) EDSD 11/09 17:03 Order name: CBC with Automated Diff EDMS 11/09 17:03 Order name: CBC with Automated Diff EDMS 11/09 17:03 Order name: CBC with Automated Diff EDMS 11/09 17:03 Order name: CBC with Automated Diff EDMS 11/09 17:03 Order name: Comprehensive Metabolic Panel EDMS 11/09 17:03 Order name: Comprehensive Metabolic Panel EDMS 11/09 17:03 Order name: Comprehensive Metabolic Panel EDMS 11/09 17:03 Order name: Comprehensive Metabolic Panel EDMS 11/09 17:08 Order name: Type and Screen EDSD 11/09 14:48 Order name: CT Abd/Pelvis - IV Contrast Only; Complete Time: 15:45 11/09 17:03 Order name: CONS Physician Consult EDSD 11/09 14:30 Order name: IV Saline Lock; Complete Time: 14:41 cp 11/09 14:30 Order name: Labs collected and sent; Complete Time: 14:41 11/09 15:47 Order name: NPO; Complete Time: 16:37 cp 11/09 15:49 Order name: NPO; Complete Time: 16:37 cp Administered Medications: 14:48 Drug: Ondansetron IVP 4 mg IVP once; over 2 minutes Route: IVP; Site: right antecubital;me1 16:38 Follow up: Response: No adverse reaction; Nausea is decreased me1 14:48 Drug: NS 0.9% IV 500 ml 500 ml IV at 1 bolus once; to be given as a bolus over 60 me1 minutes Volume: 500 ml; Route: IV; Rate: 1 bolus; Site: right antecubital; 16:37 Follow up: Response: No adverse reaction; IV Status: Completed infusion; IV Intake: me1 500ml 14:54 Not Given (Physician Discretion): ns 0.9% 500 ml 500 ml IV at 1 bolus once; to be given cp as a bolus over 60 minutes 15:00 Drug: Dicyclomine IM 20 mg IM once Route: IM; Site: right deltoid; me1 16:37 Follow up: Response: No adverse reaction; Pain is decreased me1 16:53 Drug: Piperacillin-Tazobactam IVPB 3.375 grams IVPB once over 60 mins; (mix in NS 100 me1 mL) Route: IVPB; Infused Over: 60 mins; Site: right antecubital; 17:43 Follow up: Response: No adverse reaction; IV Status: Completed infusion me1 Disposition Summary: 11/09/24 16:17 Hospitalization Ordered Notes: Hospitalization Status: Inpatient Admission cp Provider: Ciara Brennan cp Location: Telemetry/[facility] (Inpatient) cp Condition: Stable cp Problem: new cp Symptoms: have improved cp Bed/Room Type: Standard cp Room Assignment: 412(11/09/24 17:06) ja1 Diagnosis - Other and unspecified ventral hernia with obstruction, without gangrene cp Forms: - Medication Reconciliation Form cp - SBAR form cp - Leadership Thank You Letter cp Addendum: 11/11/2024 00:23 I was immediately available on-site in the Emergency Department for consultation in the m s3 care of the patient. Signatures: Dispatcher [employer] EDZehra Macario RN RN aa5 Severino Weir PA PA Stef Lawson RN RN ja1 Ruben Hill DO DO ms3 Enid Dominguez, RN RN me1 Corrections: (The following items were deleted from the chart) 11/09 14:31 14:31 CBC+H.LAB.BRZ ordered. EDMS EDMS 14: 14:31 COMPREHENSIVE METABOLIC PANEL+C.LAB.BRZ ordered. EDMS EDMS 14:31 14:31 LIPASE+C.LAB.BRZ ordered. EDMS EDMS 14: 14:31 UA Rfx Dmitry Cult if indicated+U.LAB.BRZ ordered. EDMS EDMS 14:48 14:48 Abdomen Pelvis W Con+CT.RAD.BRZ ordered. EDMS EDMS 17:06 16:17 cp ja1
[2024-11-09 16:40] LABS: Sqamous Epithelial None Seen /HPF (None Seen); Urine Culture Reflex Order NOT NEEDED; Urine Microscopic Reflex YN ORDER UMIC; Urine Yeast (Budding) Trace /HPF (None Seen)
[2024-11-09] MEDS ORDERED: NA CHLORIDE 0.9% 100 ML ONE (16:45)
[2024-11-09] MEDS ORDERED: PIPERACIL/TAZO 3.375 GM VIAL IV ONE (16:45)
[2024-11-09] MEDS ORDERED: ONDANSETRON 4 MG/2 ML VIAL IV PRN (16:57)
[2024-11-09] MEDS: PIPER TAZO 3.375 GM in NA CHLORIDE 0.9% 100 ML IV SCH (17:00)
[2024-11-09] MEDS ORDERED: MORPHINE 2 MG/ML SYR IV PRN (17:00)
--- NOTE | 2024-11-09 17:02 | P.HP ---
Patient History Date of Service: 11/09/24 History of Present Illness: Is a pleasant 69-year-old female with a past medical history of hypertension, aortic valve repair, restless leg syndrome presenting with left-sided abdominal pain for the last week. Associated symptoms include vomiting. She states the pain is located over the left side. She denies any fevers and chills. She took some [id number] pain relievers without relief. She states she is due to have an ultrasound next Wednesday. The symptoms continue to worsen so she came in for further evaluation. Allergies sulfamethoxazole [From Bactrim] Allergy (Verified 01/11/24 10:48) Hives trimethoprim [From Bactrim] Allergy (Verified 01/11/24 10:48) Hives Home Medications: Atorvastatin Calcium [Lipitor*] 1 tab PO DAILY 05/20/21 Escitalopram [Lexapro] 20 mg PO DAILY 09/03/22 Budesonide/Formoterol Fumarate [Symbicort 160-4.5 Mcg Inhaler] 2 puff IH BID 01/11/24 Magnesium [Magnesium Gluconate] 200 mg PO DAILY 01/11/24 Mecobalamin [B12 Active] 1,000 mcg PO DAILY 01/11/24 Metoprolol Tartrate 0.5 mg PO DAILY 01/11/24 Ropinirole HCl 3 tab PO DAILY 01/11/24 Spironolactone 25 mg PO DAILY 01/11/24 Vitamin E 200 unit PO DAILY 01/11/24 - Past Medical/Surgical History Diabetic: No -: COPD -: Hypertension -: RLS -: copd -: arthritis -: depression -: bi knee replacements -: ventral hernia repair with mesh -: lumpectomy r breast -: boils removed from arm pits when 17 -: carpal tunnel surgery on right hand - Family History Mother -: Heart disease, Hypertension Notes: from heart attack Father -: GI disease, Cancer Notes: Prostate cancer, colon polyps - Social History Alcohol use: No CD- Drugs: No Caffeine use: Yes Review of Systems 10-point ROS is otherwise unremarkable Gastrointestinal: Vomiting, Abdominal Pain Physical Examination - Physical Exam General: Alert, In no apparent distress HEENT: Atraumatic, Normocephalic Neck: Supple Respiratory: Clear to auscultation bilaterally Cardiovascular: No edema Gastrointestinal: Normal bowel sounds, Tenderness Musculoskeletal: No clubbing Integumentary: No rashes Neurological: Normal speech Lymphatics: No axilla or inguinal lymphadenopathy - Studies Laboratory Data (last 24 hrs) 11/09/24 11/09/24 14:39 14:39 WBC 7.10 Hgb 12.9 Hct 37.9 Plt Count 260 Sodium 137 Potassium 4.0 BUN 16 Creatinine 0.74 Glucose 117 H Total Bilirubin 0.6 AST 21 ALT 26 Alkaline Phosphatase 74 Lipase 19 Assessment and Plan - Plan Incarcerated ventral hernia Hypertension History of aortic valve replacement not on Coumadin Admit to floor CT with focal ventral hernia along the midline is present containing fluid and dilated small bowel loops likely related to hernia incarceration this appears to be resulted in partial mechanical small bowel obstruction Consult general surgery, Dr. Kearney N.p.o., start IV fluids IV morphine for pain control Start Zosyn IV CBC and CMP in the a.m. Type and screen Continue statin Continue metoprolol DVT prophylaxis with SCD - Advance Directives Does patient have a Living Will: No Does patient have a Durable POA for Healthcare: No
[2024-11-09] MEDS ORDERED: NA CHLORIDE 0.9% 250 ML IV SCH (18:00)
[2024-11-09] MEDS: NA CHLORIDE 0.9% 1,000 ML IV SCH (20:49)
[2024-11-09] MEDS: ATORVASTATIN 10 MG TAB PO SCH (20:50)
[2024-11-09] MEDS: HOME MED 1 EA UNK (Budesonide/Formoterol Fumarate [Symbicort 160-4.5 Mcg Inhaler] 10.2 GM IH SCH (21:00)
[2024-11-09 21:52] LABS: PT Prothrombin Time 11.0 SECONDS (10-13.0); Protime INR 0.97
[2024-11-10 06:25] LABS: Absolute Lymphocytes (CBC) 1.9 K/uL (0.7-4.9); Hematocrit 34.7 % (36.0-45.0); Hemoglobin 11.9 g/dL (12.0-15.0); MCH 32.7 pg (27.0-35.0); MCHC 34.1 g/dL (32.0-36.0); MCV 95.9 fL (80-100); MPV 6.7 fL (7.6-11.3); Nucleated RBC Absolute Count 0.0 (0-0); Nucleated Red Blood Cells % 0.0 % (0-0); RBC Red Blood Cell Count 3.62 M/uL (3.86-4.86); White Blood Count 5.20 thou/uL (4.3-10.9)
[2024-11-10 06:46] LABS: ALT/SGPT 17.0 U/L (13-56); AST/SGOT 16.0 U/L (15-37); Albumin 3.0 g/dL (3.4-5.0); Albumin/Globulin Ratio 1.2 (1.1-1.8); Alkaline Phosphatase 59.0 U/L (45-117); Anion Gap 6.9 mEq/L (5.0-15.0); BUN Blood Urea Nitrogen 14.0 mg/dL (7-18); Globulin 2.6 g/dL (2.3-3.5); Glucose Level 105.0 mg/dL (74-106); Potassium 3.9 mEq/L (3.5-5.1)
[2024-11-10] MEDS: VITAMIN E 400 IU CAP PO SCH (09:00)
[2024-11-10] MEDS: SPIRONOLACTONE 25 MG TABLET PO SCH (09:00)
[2024-11-10] MEDS: ROPINIROLE HCL 1 MG TAB PO SCH (09:00)
[2024-11-10] MEDS: Mecobalamin [B12 Active] 1,000 MCG Tab.Chew PO SCH (09:00)
[2024-11-10] MEDS: ESCITALOPRAM 20 MG TAB PO SCH (09:00)
[2024-11-10] MEDS ORDERED: LIDOCAINE 1% MPF 5 ML VIAL ONE (14:01)
[2024-11-10] MEDS ORDERED: ONDANSETRON 4 MG/2 ML VIAL ONE (14:01)
[2024-11-10] MEDS ORDERED: FENTANYL CITR 100 MCG/2 ML ONE ×2 (14:02→15:06)
[2024-11-10] MEDS ORDERED: ROCURONIUM 50 MG/5 ML VIAL IV ONE ×2 (14:02→14:58)
[2024-11-10] MEDS ORDERED: MIDAZOLAM HCL 2 MG/2 ML INJ ONE (14:02)
[2024-11-10] MEDS ORDERED: EPHEDRINE SULF 50 MG/ML VIAL ONE (14:48)
[2024-11-10] MEDS ORDERED: GLYCOPYRROLATE 0.2 MG/ML SYR ONE ×2 (14:54→15:22)
[2024-11-10] MEDS: NA CHLORIDE 0.9% 1,000 ML ONE (15:15)
[2024-11-10] MEDS ORDERED: NEOSTIGMINE 1 MG/ML -10 ML VIAL ONE (15:22)
[2024-11-10] MEDS ORDERED: KETOROLAC 30 MG/ML INJ ONE (15:32)
[2024-11-10] MEDS: SUGAMMADEX SODIUM 200 MG/2 ML VIAL IV ONE (15:48)
--- NOTE | 2024-11-10 15:53 | P.BOP ---
Preoperative diagnosis: incarcerated ventral hernia, small bowel obtruction Postoperative diagnosis: same Primary procedure: 1. Exploratory laparotomy Secondary procedure: 2, repair of incarcerated recurrent ventral hernia Other procedure(s): 3. Extensive lysis of adhesions. 4. Partial removal of abd wall mesh Estimated blood loss: <50cc Specimen: sac with mesh Drain(s): ALLEGRA drain Transferred to: Recovery Room Condition: Good
--- NOTE | 2024-11-10 16:11 | CON ---
Date of Consultation: 11/10/2024 Diagnosis: Abdominal pain, incarcerated, ventral, recurrent hernia with a small bowel obstruction. History Of Present Illness: This is a case of a 69-year-old patient who came to us with abdominal pa in few days in duration, admitted to the hospital after found to have an incarcerated ventral hernia with small bowel obstruction. She has some history of aortic valve replacement. No anticoagulation. She also has history of a hernia repair near this region at [facility] with what she claimed was mesh. She was fine and then she received 2 years ago an open hysterectomy through a ventral inci romie where this hernia is. Then, after that, developed bulging areas. It has been bothering her for few weeks, but in the last 24 hours, it got worse. She does not recall the last colonoscopy. Review of Systems: She denies any dysuria, hematuria, hematochezia, or melena. Denies any recent traveling out of the [facility]. Denies any family member sick at home. Ten points, otherwise, unremarkable. Allergies: SULFA. Medications: Calcium, Lexapro, magnesium, spironolactone, ropinirole. Past Medical History: Include COPD, hypertension, depression, restless legs syndrome, history of aor tic valve replacement. Past Surgical History: Include ventral hernia repair in the same area they had, at this time, she sa id it was done at [facility] with mesh. She also had a total hysterectomy done 2 years ago thr ough the same incision after the hernia was repaired. She had carpal tunnel surgery and lumpectomy i n the right breast. She has also bilateral knee replacement. Family History: Hypertension, heart disease. Social History: She does not smoke. She does not drink alcohol. Physical Examination: Vital Signs: Temperature is 98, pulse 66, respirations 17, 137/92. General: The patient is awake, alert, complaining of abdominal pain. HEENT: Pupils are equal and reactive, anicteric. Neck: Supple. Chest: Clear. Abdomen: Lower ventral region with a palpable hernia, incarcerated, cannot be reduced, tender. This is the area that also has small bowel present. It is the area also on the previous hernia repair an d hysterectomy. Pelvis: Deferred. Breasts: Deferred. Rectal: Deferred. Extremities: Good capillary refill. Laboratory Data: Blood work shows WBC count of 7.1, hemoglobin of 12.9, and platelets of 260, with c hloride 108, and glucose 105. CAT scan of the abdomen and pelvis interpreted by Dr. Whitt as focal v entral hernia along the midline present containing fluid and dilated small bowel loops likely related to the hernia incarceration with a partial small bowel obstruction. Assessment: This is a 69-year-old patient with recurrent ventral hernia. She had two surgeries ther e recently, one for hernia repair with mesh at [facility] and another one was a total hysterect maris. Now, she comes with bowel on that area is tender, it is causing bowel obstruction, and I was ca lled. Benefits, alternatives, and risks of laparotomy, possible bowel resection, possible ostomy, po ssible recurrent ventral hernia with possible mesh fully explained, which include, but not limited to , infection, bleeding, damage to adjacent structures, anesthesia complications, recurrence, ND, and e daniel . She also understands this may not relieve any symptoms, she might need more than one surg ical intervention. She understood and signed a consent. CHET/MAYURI Voice ID: [id number] Report ID: [id number]
--- NOTE | 2024-11-10 16:58 | RAD REPORT ---
Exam:Abdomen 1 View (KUB) Clinical history: Nasogastric tube placement FINDINGS: Tip of a nasogastric tube lies near the junction of the gastric body and fundus.
--- NOTE | 2024-11-10 17:19 | P.PN ---
Subjective Date of Service: 11/10/24 Chief Complaint: Abdominal pain Patient reports some improvement in abdominal pain. Patient was made n.p.o. for surgery today. No recorded fever. Physical Examination - Vital Signs Temperature: 97.9 F Blood Pressure: 122/53 Pulse: 73 Respirations: 16 Pulse Ox (%): 96 Assessment And Plan - Plan Physical examination General: Alert and oriented x3, NAD, HEENT: Conjunctiva not pale, anicteric sclera Neck: Supple, no elevated JVD Heart: Heart sounds 1 and 2 normal, regular rhythm, normal rate, no pedal edema Lungs: Clear to auscultation bilaterally, adequate breath sounds bilaterally, no rhonchi or crackles. Abdomen: Soft, periumbilical tenderness, periumbilical hernia, normal bowel sounds. Extremities: No tenderness, no deformity Skin: Normal skin turgor, no rash, no nodules or ulcers. Neuro: No focal motor deficit. Normal speech. Psychiatry: Normal mood, no agitation. Diagnosis Incarcerated ventral hernia Hypertension History of aortic valve replacement Plan: Patient plan for ventral hernia repair. She is n.p.o. IV morphine as needed Continue empiric Zosyn Monitor and optimize electrolytes Continue antihypertensive-metoprolol once oral intake is resumed. DVT prophylaxis: SCD pending surgery. Advanced directive: full code
--- NOTE | 2024-11-10 20:31 | CON ---
Date of Consultation: 11/10/2024 Preoperative Diagnoses: Incarcerated ventral hernia, small-bowel obstruction, abdominal pain. Postoperative Diagnoses: Incarcerated ventral hernia, small-bowel obstruction, abdominal pain. Procedures: 1. Exploratory laparotomy. 2. Repair of incarcerated recurrent ventral hernia. 3. Extensive lysis of adhesions. 4. Partial removal of abdominal wall mesh. Estimated Blood Loss: Less than 50 cc. Specimens: Sac with mesh. Drains: ALLEGRA #10 in subcutaneous tissue. Findings: The patient has multiple loops of small bowel incarcerated, multiple hernias on the anteri or abdominal wall. The bowel was seen to be viable after reduced and inspected. Adhesions were hold ing some of the bowel in place, we carefully have to remove the adhesions. We even have to remove pa rtially the mesh. Some of the mesh looked like it was there sometime ago, at least the part that is not incorporated. Indications: This is a case of a 69-year-old patient who comes to us with a small bowel obstruction. Apparently, a recurrent ventral hernia. She had she said in [facility] hernia repair there w ith mesh few years ago and then had also total hysterectomy through the same incision and then unfort unately bowel got trapped in that area this time causing the bowel obstruction. Surgical consult was obtained for the repair. The benefits, alternatives, and risks of emergent exploration, possible re section, possible ostomy, repair of a ventral hernia were fully explained, which include, but not erazo ited to infection, bleeding, damage to adjacent structures, anesthesia complication, recurrence, PR, and even . She also understands this may not relieve symptoms. She might need more than one ingram rgical intervention. She understands she may or may not require a bowel resection, may or may not re quire mesh. She signed a consent. Description Of Procedure: The patient was brought to the operating room, placed in supine position. Anesthesia was induced without complication. Abdominal area was prepped and draped in a sterile fas hion. Midline incision was made. When we made an incision, we saw the hernia sac. There was [address] on the abdomen, multiple areas in the subcutaneous tissue with intestines went through multiple ca vities. We carefully reduced the intestines from all those cavities and then took them through the e xploratory laparotomy incision and inspected the bowel. Seems to be viable, seems to have flow from proximal to distal. We marked the area and then proceeded to run the bowel and small bowel does not seem to be obstructed at any other places. The large bowel has some multiple stools, at least that i s what we believe it is inside the intestines because I cannot see inside, but obviously a colonoscop y in the future may try to show more light on the large bowel contents. Extraluminal, we did not see any masses. In order for us to reduce the abdomen, we have to remove multiple adhesions after the l aparotomy from intestines attached to the anterior abdominal wall. Also, unfortunately, there is jadiel e mesh that does not look incorporated and so we had to trim that area, take away the intestines from that area, and then trim that part of the mesh that was not incorporated. After that, once again, w e checked the bowel again and looks to be intact, at least the area that was an incarcerated, so we r educed it back into the abdominal cavity, irrigated the area profusely and suctioned. Sponge count a nd instrument count were correct. Then, proceeded to close the hernia defect with #1 nylon. The def ect is about 10 cm in size. After that, since we expect this patient may have seroma, so I put a ALLEGRA drain in the subcutaneous tissue to help to at least drain that area and then the subcutaneous tissue was closed with 3-0 chromic and the skin was approximated with sd. Sponge count and instrument count were correct. The patient tolerated the procedure well. The patient is on her way to recover y in stable condition. CHET/MAYURI Voice ID: [id number] Report ID: [id number]
[2024-11-10] MEDS: PHENOL 1.4% ORAL SPRAY 180ML MM PRN (20:57)
[2024-11-10] MEDS: HYDROMORPHONE HCL 1 MG/ML INJ IV PRN (21:01)
[2024-11-10] MEDS ORDERED: D50W 25 GM/50 ML SYRINGE IV PRN (22:00)
[2024-11-10] MEDS: D10W 125 ML IV PRN (22:16)
[2024-11-11 06:26] LABS: Absolute Lymphocytes (CBC) 1.6 K/uL (0.7-4.9); Hematocrit 35.7 % (36.0-45.0); Hemoglobin 11.8 g/dL (12.0-15.0); MCH 32.3 pg (27.0-35.0); MCHC 33.2 g/dL (32.0-36.0); MCV 97.4 fL (80-100); MPV 6.5 fL (7.6-11.3); Nucleated RBC Absolute Count 0.0 (0-0); Nucleated Red Blood Cells % 0.0 % (0-0); RBC Red Blood Cell Count 3.66 M/uL (3.86-4.86); White Blood Count 7.90 thou/uL (4.3-10.9)
[2024-11-11 06:48] LABS: ALT/SGPT 16.0 U/L (13-56); AST/SGOT 15.0 U/L (15-37); Albumin 2.8 g/dL (3.4-5.0); Albumin/Globulin Ratio 1.0 (1.1-1.8); Alkaline Phosphatase 56.0 U/L (45-117); Anion Gap 9.1 mEq/L (5.0-15.0); BUN Blood Urea Nitrogen 11.0 mg/dL (7-18); Globulin 2.7 g/dL (2.3-3.5); Glucose Level 85.0 mg/dL (74-106); Potassium 4.1 mEq/L (3.5-5.1)
[2024-11-11] MEDS: METOPROLOL TAR 25 MG TAB PO SCH (08:19)
--- NOTE | 2024-11-11 12:46 | P.PN ---
Subjective Date of Service: 11/11/24 Chief Complaint: Abdominal pain, s/p laparotomy, repiar of recurrent incarcerated ventral he Subjective: Tolerating diet, Ambulating, Improving Review of Systems ENT: Unremarkable Respiratory: Unremarkable Cardiovascular: Unremarkable Gastrointestinal: Distention Musculoskeletal: Unremarkable Neurological: Unremarkable Physical Examination - Vital Signs Temperature: 97.8 F Blood Pressure: 106/49 Pulse: 92 Respirations: 16 Pulse Ox (%): 90 - Physical Exam General: Alert, In no apparent distress, Oriented x3, Cooperative HEENT: PERRLA, EOMI Neck: Supple Cardiovascular: No edema Gastrointestinal: Hypoactive, Tenderness (better, intact surgical site and ALLEGRA drain) Musculoskeletal: No erythema, No tenderness, No warmth Integumentary: No rashes, No breakdown Assessment And Plan - Plan d/c ngt Sips of clear ambulate
--- NOTE | 2024-11-11 13:47 | P.PN ---
Subjective Date of Service: 11/11/24 Chief Complaint: Abdominal pain, s/p laparotomy, repiar of recurrent incarcerated ventral he Status post laparotomy and repair of incarcerated ventral hernia. NG tube in place. Patient complaining of pain at the surgical site and feeling hungry. She says she passed flatus this morning. She is tolerating clear liquid sips. Physical Examination - Vital Signs Temperature: 97.8 F Blood Pressure: 106/49 Pulse: 92 Respirations: 16 Pulse Ox (%): 90 Assessment And Plan - Plan Physical examination General: Alert and oriented x3, NAD, Neck: No elevated JVD Heart: Heart sounds 1 and 2 normal, regular rhythm, normal rate, no pedal edema Lungs: Clear to auscultation bilaterally, adequate breath sounds bilaterally, no rhonchi or crackles. Abdomen: Soft, abdominal corset in place, decreased bowel sounds. Extremities: No tenderness, no deformity Skin: Normal skin turgor, no rash. Neuro: No focal motor deficit. Psychiatry: Normal mood, no agitation. Diagnosis Incarcerated ventral hernia Hypertension History of aortic valve replacement Plan: Patient plan for ventral hernia repair. She is n.p.o. IV morphine as needed Continue empiric Zosyn Monitor and optimize electrolytes Continue antihypertensive-metoprolol once oral intake is resumed. 11/11 S/p repair of incarcerated ventral hernia NG tube in place General Surgery Dr. Kearney is following Continue empiric Zosyn Monitor and optimize electrolytes Blood pressure has been soft with oral metoprolol. Continue metoprolol with holding parameters DVT prophylaxis: Lovenox Advanced directive: full code
[2024-11-11] MEDS: ENOXAPARIN 40 MG/0.4 ML SQ SCH (16:32)
[2024-11-11] MEDS: GUAIFENESIN/DM 5 ML UCUP PO PRN (22:00)
[2024-11-11 22:41] VITALS: BMI 34.3
[2024-11-12 05:21] LABS: Absolute Lymphocytes (CBC) 1.7 K/uL (0.7-4.9); Hematocrit 35.1 % (36.0-45.0); Hemoglobin 11.7 g/dL (12.0-15.0); MCH 32.2 pg (27.0-35.0); MCHC 33.4 g/dL (32.0-36.0); MCV 96.5 fL (80-100); MPV 6.8 fL (7.6-11.3); Nucleated RBC Absolute Count 0.0 (0-0); Nucleated Red Blood Cells % 0.1 % (0-0); RBC Red Blood Cell Count 3.64 M/uL (3.86-4.86); White Blood Count 7.50 thou/uL (4.3-10.9)
[2024-11-12 06:17] LABS: ALT/SGPT 15.0 U/L (13-56); AST/SGOT 14.0 U/L (15-37); Albumin 2.8 g/dL (3.4-5.0); Albumin/Globulin Ratio 0.9 (1.1-1.8); Alkaline Phosphatase 58.0 U/L (45-117); Anion Gap 8.3 mEq/L (5.0-15.0); BUN Blood Urea Nitrogen 6.0 mg/dL (7-18); Globulin 3.2 g/dL (2.3-3.5); Glucose Level 105.0 mg/dL (74-106); Potassium 4.3 mEq/L (3.5-5.1)
[2024-11-12] MEDS: ALBUTEROL 2.5 MG/3 ML NEB SOL NEB SCH (13:55)
[2024-11-12] MEDS: IPRATROPIUM BROM 0.5MG/2.5ML NEB SCH (13:55)
--- NOTE | 2024-11-12 16:01 | P.PN ---
Subjective Date of Service: 11/12/24 Chief Complaint: Abdominal pain, s/p laparotomy, repiar of recurrent incarcerated ventral he Patient seen sitting in a chair today. Patient states she has been tolerating clear liquid diet. Stated her abdominal pain is much better. Physical Examination - Vital Signs Temperature: 98.0 F Blood Pressure: 138/77 Pulse: 71 Respirations: 18 Pulse Ox (%): 96 Assessment And Plan - Plan Physical examination General: Alert and oriented x3, NAD, Heart: Heart sounds 1 and 2 normal, regular rhythm, normal rate, no pedal edema Lungs: Clear to auscultation bilaterally, adequate breath sounds bilaterally, no rhonchi or crackles. Abdomen: Soft, abdominal corset in place, decreased bowel sounds. Extremities: No tenderness, no deformity Skin: Normal skin turgor, no rash. Diagnosis Incarcerated ventral hernia Hypertension History of aortic valve replacement Plan: Patient plan for ventral hernia repair. She is n.p.o. IV morphine as needed Continue empiric Zosyn Monitor and optimize electrolytes Continue antihypertensive-metoprolol once oral intake is resumed. 11/11 S/p repair of incarcerated ventral hernia NG tube in place General Surgery Dr. Kearney is following Continue empiric Zosyn Monitor and optimize electrolytes Blood pressure has been soft with oral metoprolol. Continue metoprolol with holding parameters 11/12 Status post ventral hernia repair Patient is tolerating clear liquid diet General Surgery Dr. Kearney is following, diet advancement per Dr. Kearney. Continue analgesics for pain Continue empiric Zosyn. Monitor and optimize electrolytes. DVT prophylaxis: Lovenox Advanced directive: full code
[2024-11-12] MEDS: GUAIFENESIN/CODEINE 5ML UCUP PO PRN (19:40)
[2024-11-12] MEDS: DULERA 100/5 (MOMETASONE/FORMOTEROL) INHALER IH SCH (19:41)
[2024-11-12] MEDS: IPRATROPIUM BROM 0.5MG/2.5ML NEB PRN (23:40)
[2024-11-12] MEDS: ALBUTEROL 2.5 MG/3 ML NEB SOL NEB PRN (23:40)
[2024-11-13 05:46] LABS: Anion Gap 7.4 mEq/L (5.0-15.0); BUN Blood Urea Nitrogen 6.0 mg/dL (7-18); Glucose Level 106.0 mg/dL (74-106); Potassium 3.4 mEq/L (3.5-5.1)
[2024-11-13] MEDS: ARFORMOTEROL TARTRATE 15 MCG/2 ML VIAL.NEB NEB SCH (07:34)
[2024-11-13] MEDS: POTASSIUM CL SA 10 MEQ TAB PO ONE (08:40)
[2024-11-13 10:15] VITALS: O2SAT 93
[2024-11-13 16:41] VITALS: BP 120/62; TEMP 98.9
== END 2024-11-13 18:23 | disposition home or self-care (01) | DRG 337 ==
LOC: ER 14:02 → ERHOLD 16:57 → 4TH 18:34
PROVIDERS: ADMIT Family Medicine; ATTEND Hospitalist
PROC: 0DNW0ZZ Release Peritoneum, Open Approach (ICD-10-PCS; 2024-11-10)
PROC: 0WPF0JZ Removal of Synthetic Substitute from Abdominal Wall, Open Approach (ICD-10-PCS; 2024-11-10)
PROC: 0D9670Z Drainage of Stomach with Drainage Device, Via Natural or Artificial Opening (ICD-10-PCS; 2024-11-10)
PROC: 0WUF0JZ Supplement Abdominal Wall with Synthetic Substitute, Open Approach (ICD-10-PCS; principal; 2024-11-10 15:15)
DX: K43.6 Other and unspecified ventral hernia with obstruction, without gangrene (principal); I10 Essential (primary) hypertension; Z95.2 Presence of prosthetic heart valve; Z88.2 Allergy status to sulfonamides; J44.9 Chronic obstructive pulmonary disease, unspecified; G25.81 Restless legs syndrome; Z90.710 Acquired absence of both cervix and uterus; Z96.653 Presence of artificial knee joint, bilateral; Z98.890 Other specified postprocedural states; F32.A Depression, unspecified
CPT/HCPCS: 36415; 74018; 74177; 80048; 80053; 81001; 82947; 83605; 83690; 83735; 85025; 85610; 86850; 86900; 86901; 88302; 93005; 94010; 94640; 96361; 96365; 96372; 96375; 99285; J0500; J1171; J1650; J2003; J2250; J2405; J2543; J2704; J2710; J3010; J3535; J7030; J7040; J7605; J7613; J7644; Q9967